=== PATIENT | male | born 1940 | race Caucasian/White ===

== ENCOUNTER 2022-04-05 14:07 | Outpatient (CLI) | payer MEDICARE, SELFPAY ==
--- OUTSIDE RECORDS SUMMARY | 2022-04-05 07:59 | XMS_ITS | Encounter Summary ---
:1940 Author Organization [place] Address [facility] [place] [address] Care Team Providers Name Role Phone Zen Rousseau MD Unavailable Senthil Mckeon MD Primary Care Provider [phone] Ta Trimble MD Unavailable Ronnie Myers Primary Care Provider Mali Dowd APRN RAILROAD CAR INSPECTOR Unavailable Reason for Visit Reason Onset Date Comments Appointment 09/08/2021 Calling to schedule appt Encounter Details Date Type Department Care Team Description 09/08/2021 Telephone [facility] Mali Dowd Ap pointment (Calling to Health Heart FIRE INFORMATION OFFICER RAILROAD CAR INSPECTOR schedule appt) [facility] [address] [place], [place] [address] [address] [place] [address] [place], [place] [phone] (Work) [phone] Social History Tobacco Use Types Packs/Day Years Used Date Former Smoker Smokeless Tobacco: Never Used Comments: quit about 30 years ago Alcohol Use Standard Drinks/Week Comments Yes 0 (1 standard drink = 0.6 oz pure alcoho l) rare Alcohol Habits Answer Date Recorded How often do you have a drink containing alcohol? Not asked How many drinks containing alcohol do you have on a typical Not asked day when you are drinking? How often do you have six or more drinks on one occasion? No t asked Comment: rare 04/23/2017 Sex Assigned at Date Recorded Not on file documented as of this encounter Miscellaneous Notes Telephone Encounter - Maria G Solitarioflorentin - 09/08/2021 2:45 PM [facility] Call Center Phone Message May a detailed message be left on voicemail: yes Reason for Call: Other: pt calling to schedule appt but unable to populate January UMER scheudle in [place] for October pt aware clinic will call to help schedule. Action Taken: Message routed to: Other: Cardiology Travel Screening: Not Applicable FACTURING DEVELOPMENT ENGINEER documented in this encounter Plan of Treatment Not on filedocumented as of this encounter Visit Diagnoses Not on filedocumented in this encounter Care Teams Motor And Generator Brush Cutter Relationship Specialty Start Date End Date Senthil Mckeon, PCP - General 12/03/18 Ronnie Myers PCP - General Family Medicine 09/11/21 [facility] [address] [place] [address] Zen Rousseau MD MD Family Practice 07/31/12 [facility] [address] [place] [address] Ta Trimble Assigned Heart and 05/27/20 2 MD [facility] [address] [place], [place] [address] Mali Dowd APRN RAILROAD CAR INSPECTOR Assigned Heart and 10/08/21 [address] Vascular Provider [place] [id number] documented as of this encounter
--- OUTSIDE RECORDS SUMMARY | 2022-04-05 07:59 | XMS_ITS | Encounter Summary ---
:1940 Author Organization [place] Address [address] [place] [address] Care Team Providers Name Role Phone Zen Rousseau MD Unavailable Ta Trimble MD Unavailable Ronnie Myers Primary Care Provider Encounter Details Date Type Department Care Team Description 10/04/2021 Travel Social History Tobacco Use Types Packs/Day Years [...] Assigned at Date Recorded Not on file COVID-19 Exposure Response Date Recorded In the last month, have you been in contact with No / Unsure 10/04/2021 2:30 PM RECRUITING COORDINATOR someone who was confirmed or suspected to have Coronavirus / COVID-19? documented as of this encounter Plan of Treatment Not on filedocumented as of this encounter Visit Diagnoses Not on filedocumented in this encounter Care Teams Sales Service Technician Relationship Specialty Start Date End Date Ronnie Myers PCP - General Family Medicine 09/11/21 [facility] [address] [place] [address] Zen Rousseau MD MD Family Practice 07/31/12 [facility] [address] [place] [address] Ta Trimble Assigned Heart and 05/27/20 3 2 MD [facility] Provider [address] [place] [phone] documented as of this encounter
--- OUTSIDE RECORDS SUMMARY | 2022-04-05 07:59 | XMS_ITS | Encounter Summary ---
:1940 Author Organization [place] Address [address] [facility] [place] [address] Care Team Providers Name Role Phone Zen Rousseau MD Unavailable Ta Trimble MD Unavailable [phone] Ronnie Myers Primary Care Provider Reason for Referral Consultation (Routine: Next available opening) - Pending Review Specialty Diagnoses / Procedures Referred By Contact Refer red To Contact Cardiovascular Disease Diagnoses Nonrheumatic aortic valve stenosis Mali Dowd, JERMAINE ELECTRICAL DRAFTER [address] [place] [id number] Referral ID Status Reason Start Date Expiration Date Visits V isits Requested Authorized [id number] Pending 10/04/2021 10/04/2022 1 1 Review V Testing (Routine) - Pending Review Specialty Diagnoses / Procedures Referred By Contact Refer red To Contact Diagnoses Nonrheumatic aortic valve stenosis Mali Dowd APRN ELECTRICAL DRAFTER Procedures Echocardiogram Complete [facility] TTE W/DOPPLER, COMPLETE [facility] ECHO COMPLETE W DOPPLER W CONTRAST [facility] ECHO COMPLETE W DOPPLER W/O CONTRAST [facility] IV PUSH SINGLE, INITIAL SUBSTANCE Z[facility] US GUIDE FOR PERICARDIOCENTESIS [address] [facility] ECHO MYOCARD BX ZZC INJECTION, PERFLUTREN LIPID MICROSPHERES, PER ML [facility] STATISTIC IV PUSH SINGLE INITIAL SUBSTANCE HI ECHO MYOCARD BX HI INJECTION, PERFLUTREN LIPID MICROSPHERES, PER ML HI TTE W/DOPPLER, [place] [address] HI IV PUSH SINGLE, INITIAL S UBSTANCE HI TTE W/DOPPLER, COMPLETE HI TTE W/DOPPLER, COMPLETE HC US GUIDE FOR PERICARDIOCENTESIS HC ECHO MYOCARD BX HC IV PUSH SINGLE, INITIAL SUBSTANCE HC STATISTIC IV PUSH SINGLE INITIAL SUBSTANCE HC ECHO COMPLETE W DOPPLER W CONTRAST HC ECHO COMPLETE W DOPPLER W/O CONTRAST Referral ID Status Reason Start Date Expiration Date Visits V isits Requested Authorized [id number] Pending 10/04/2021 10/04/2022 1 1 Review N RESOURCE ANALYST Reason for Visit Reason Comments Follow Up CAD, HTN (Routine) - Closed Specialty Diagnoses / Procedures Referred By Contact Refer red To Contact Diagnoses Essential hypertension Nonrheumatic aortic valve stenosis Hyperlipidemia LDL goal <70 Coronary artery disease involving eastern [place] coronary artery of eastern [place] heart without angina pectoris Ta Trimble MD [address] [place] [phone] Referral ID Status Reason Start Date Expiration Date Visits Requ ested Visits Authorized [id number] Closed 10/25/2020 10/25/2021 1 1 Encounter Details Date Type Department Care Team Description 10/04/2021 Office Visit Mali Wagner, Essential hy pertension; [facility] JERMAINE BUTLER Nonrheumatic aortic valve stenosis; [facility] [id number] MARY XIONG Hyperlipidemia LDL goal <70; [id number] [facility] [address] Coronary artery disease involving eastern [place] coronary artery of eastern [place] heart without angina pectoris [address] [place] [address] [place], [place] [phone] [address] (Work) [phone] Social History Tobacco Use Types Packs/Day Years [...] with No / Unsure 10/04/2021 2:30 PM HUMAN RESOURCE ANALYST someone who was confirmed or suspected to have Coronavirus / COVID-19? documented as of this encounter Last Filed Vital Signs Vital Sign Reading Time Taken Comments Blood Pressure 104/50 10/04/2021 2:44 PM HUMAN RESOURCE ANALYST Pulse 56 10/04/2021 2:44 PM HUMAN RESOURCE ANALYST Temperature - - Respiratory Rate - - Oxygen Saturation 97% 10/04/2021 2:44 PM HUMAN RESOURCE ANALYST Inhaled Oxygen Concentration - - Weight 92.6 kg (204 lb 3.2 oz) 10/04/2021 2:44 PM HUMAN RESOURCE ANALYST Height 167.6 cm (5' 6) 10/04/2021 2:44 PM HUMAN RESOURCE ANALYST Body Mass Index 32.96 10/04/2021 2:44 PM HUMAN RESOURCE ANALYST documented in this encounter Progress Notes Mali Dowd, JERMAINE ELECTRICAL DRAFTER - 10/04/2021 3:00 PM CST HISTORY OF PRESENT ILLNESS: This is a 81 year old male who follows with Dr Trimble at [facility] His past medical history includes: Coronary artery disease, aortic valve disease, hypertension, hyperlipidemia, type IIdiabetes, COPD, obesity, and sleep apnea. Mr Bautista suffered an inferolateral ID and received a stent to his OM (2009) He has a history of aortic stenosis which has been followed by serial echocardiograms He intermittently has been on Lasix forperipheral edema. Tracy NUC (2016) showed no evidence of ischemia/infarction LVEF 77% ECHO (2018) showed LVEF 60-65%, mild/moderate LVH, mild aortic stenosis (mean gradient 16 mmHg), RVSP 32 mmHg His last ECHO (10/2020) showed LVEF 60-65%, normal RV function, borderline LVH, mild/moderate aortic stenosis (mean gradient 21 mmHg, peak 38 mmHg, MARTHA 1.4 cm2, DI 0.31) which has shown slow progressionof his aortic stenosis Borderline ascending aorta dilatation When seen last year, he admitted to being very sedentary and had stable dyspnea on exertion. He has multiple inhalers for his asthma. I reviewed records from his PMD The patient has recently been concerned about memory issues Labs (09/07/21) show Sodium: 139, Potassium: 4.5 BUN: 21 Creatinine: 1.2 ALT: 14 Hgb:12.4 PLT: 174, Hgb A1C 6.8% Our visit today is for an annual review and ECHO Mr Bautista comes in today with his who assists with his history and symptoms He admits to being sedentary, but is more active during summer months He denies any exertional chest pain or palpitations. He has chronic dyspnea on exertion that has not changed much over the past year He denies orthopneaor peripheral edema We talked about watching the salt in his diet and losing some weight He has no significant lightheadedness or near-syncope. I reviewed his ECHO (09/28/21) This showed progressive of his aortic stenosis,now considered moderate(MARTHA 1.2 cm2, mean gradient 27 mmHg) LVEF 55-60%, mild ascending aorta dilatation, grade I diastolicdysfunction, normal RV function VITAL SIGNS: BP: 104/50 Pulse: 56 Weight: 204 lbs (stable) BMI: 32 IMPRESSION AND PLAN: Coronary Artery Disease: -s/p inferolateral ID and stenting to OM (2009) -NUC stress (2016) showed no evidence of ischemia / infarction -LVEF 60% -denies angina Moderate Aortic Stenosis -mean gradient 27 mmHg, MARTHA 1.2 cm2 LVEF 60%, mild ascending aorta dilatation (2021) -repeat ECHO next year Hypertension: -on Losartan 50 mg, Metoprolol 25 mg BID, Lasix 20 mg -BP well controlled Hyperlipidemia: -on Crestor 40 mg -managed by PMD, due for lipids Treated Sleep Apnea The total time for the visit today was 30 minutes which includes patient visit, reviewing of records, discussion, and placing of orders of the outpatient coordination of cardiovascular care as described. The level of medical decision making during this visit was of moderate complexity. Thank you for allowing me to participate in their care. Orders Placed This Encounter Procedures ??? Follow-Up with Cardiology ??? Echocardiogram Complete Orders Placed This Encounter Medications ??? Ascorbic Acid (VITAMIN C) 500 MG CAPS Sig: Take by mouth daily ??? metFORMIN (GLUCOPHAGE) 500 MG tablet Sig: TAKE ONE TABLET BY MOUTH TWICE DAILY with meals ??? DISCONTD: atorvastatin (LIPITOR) 20 MG tablet ??? furosemide (LASIX) 20 MG tablet Sig: Take 1 tablet (20 mg) by mouth daily Dispense: 90 tablet Refill: 3 ??? losartan (COZAAR) 50 MG tablet Sig: Take 1 tablet (50 mg) by mouth daily Dispense: 90 tablet Refill: 3 ??? metoprolol tartrate (LOPRESSOR) 25 MG tablet Sig: Take 1 tablet (25 mg) by mouth 2 times daily Dispense: 180 tablet Refill: 3 Medications Discontinued During This Encounter Medication Reason ??? atorvastatin (LIPITOR) 20 MG tablet Medication Reconciliation Clean Up ??? furosemide (LASIX) 20 MG tablet Reorder ??? losartan (COZAAR) 50 MG tablet Reorder ??? metoprolol tartrate (LOPRESSOR) 25 MG tablet Reorder Encounter Diagnoses Name Primary? Essential hypertension ??? Nonrheumatic aortic valve stenosis ? ? Hyperlipidemia LDL goal <70 ??? Coronary artery disease involving eastern [place] coronary artery of eastern [place] heart without angina pectoris CURRENT MEDICATIONS: Current Outpatient Medications Medication Sig Dispense Refill ??? albuterol (2.5 MG/3ML) 0.083% nebulizer solution Take 1 vial by nebulization every 6 hours as needed for shortness of breath / dyspnea or wheezing ??? Ascorbic Acid (VITAMIN C) 500 MG CAPS Take by mouth daily ??? aspirin 81 MG tablet Take 81 mg by mouth daily ??? budesonide-formoterol (SYMBICORT) 80-4.5 MCG/ACT inhaler Inhale 2 puffs into the lungs as needed(Only takes when need for cough-NOT Scheduled like prescribed (averages 3x/wk)) ??? furosemide (LASIX) 20 MG tablet Take 1 tablet (20 mg) by mouth daily 90 tablet 3 ??? losartan (COZAAR) 50 MG tablet Take 1 tablet (50 mg) by mouth daily 90 tablet 3 ??? metFORMIN (GLUCOPHAGE) 500 MG tablet TAKE ONE TABLET BY MOUTH TWICE DAILY with meals ??? metoprolol tartrate (LOPRESSOR) 25 MG tablet Take 1 tablet (25 mg) by mouth 2 times daily 180 tablet 3 ??? nitroglycerin (NITROSTAT) 0.[address] 1 tablet (0.4 mg) under the tongue every 5 minutes as needed for chest pain 25 tablet 3 ??? pantoprazole (PROTONIX) 40 MG enteric coated tablet Take 40 mg by mouth every 48 hours ??? rosuvastatin (CRESTOR) 40 MG tablet Take 1 tablet (40 mg) by mouth daily (Patient taking differently: Take 20 mg by mouth daily ) 90 tablet 2 ??? Cyanocobalamin (VITAMIN B 12 PO) Take 1,000 mcg by mouth daily (Patient not taking: Reported on 10/04/2021) ??? VITAMIN D, CHOLECALCIFEROL, PO Take 1,000 Units by mouth daily (Patient not taking: Reported on 10/04/2021) ALLERGIES Allergies Allergen Reactions ??? Fish Oil Other (See Comments) Bloody noses ??? Penicillins Itching PAST MEDICAL HISTORY: Past Medical History: Diagnosis Date ??? CAD (coronary artery disease) mild/mod disease in RCA, INGRID to OM2 ??? Colon polyps ??? High cholesterol ??? Hypertension ??? Myocardial infarction (H) ??? Past history of myocardial infarction 06/2010 Non QWave ??? SOB (shortness of breath) ??? Stented coronary artery x1 stent ??? Uncomplicated asthma PAST SURGICAL HISTORY: Past Surgical History: Procedure Laterality Date ??? ARTHROSCOPY SHOULDER DECOMPRESSION Right 10/18/2014 Procedure: ARTHROSCOPY SHOULDER DECOMPRESSION; Surgeon: Shamar Butterfield MD; Location: [facility] OR ??? CARDIAC SURGERY 2009 x1 stent ??? COLECTOMY 2007 2007; partial colectomy 1 foot ??? COLONOSCOPY ??? COLONOSCOPY N/A 08/26/2019 Procedure: COLONOSCOPY, WITH POLYPECTOMY AND BIOPSY using jumbo forceps; Surgeon: Patric Dumont MD; Location: [facility] GI ??? COLONOSCOPY N/A 04/06/2021 Procedure: Colonoscopy, With Polypectomy And Biopsy; Surgeon: Jacque Kurtz MD; Location: [facility] GI ??? CORONARY ANGIOGRAPHY ADULT ORDER 06/2010 INGRID to OM2, RCA mild/mod disease FAMILY HISTORY: Family History Problem Relation Age of Onset ??? Diabetes Mother ??? Hypertension Mother ??? Asthma Father ??? Myocardial Infarction Brother ??? Cancer Brother ??? Myocardial Infarction Sister ??? Myocardial Infarction Brother ??? Myocardial Infarction Brother ??? Myocardial Infarction Brother ??? Myocardial Infarction Brother ??? Myocardial Infarction Sister ??? Colon Cancer No family hx of SOCIAL HISTORY: Social History Socioeconomic History ??? Marital status: Spouse name: Not on file ??? Number of children: Not on file ??? Years of education: Not on file ??? Highest education level: Not on file Occupational History ??? Not on file Tobacco Use ??? Smoking status: Former Smoker ??? Smokeless tobacco: Never Used ??? Tobacco comment: quit about 30 years ago Vaping Use ??? Vaping Use: Never used Substance and Sexual Activity ??? Alcohol use: Yes Comment: rare ??? Drug use: No ??? Sexual activity: Not on file Other Topics Concern ??? Service Not Asked ??? Blood Transfusions Not Asked ??? Caffeine Concern No Comment: 5-6 cups daily ??? Occupational Exposure Not Asked ??? Hobby Hazards Not Asked ??? Sleep Concern Not Asked ??? Stress Concern Not Asked ??? Weight Concern Not Asked ??? Special Diet No ??? Back Care Not Asked ??? Exercise No Comment: mowing the lawn ??? Bike Helmet Not Asked ??? Seat Belt Not Asked ??? Self-Exams Not Asked ??? Parent/sibling w/ CABG, ID or angioplasty before 65F 55M? Not Asked Social History Narrative ??? Not on file Social Determinants of Health Financial Resource Strain: Not on file Food Insecurity: Not on file Transportation Needs: Not on file Physical Activity: Not on file Stress: Not on file Social Connections: Not on file Intimate Partner Violence: Not on file Housing Stability: Not on file Review of Systems: Skin: Negative Eyes: Positive for glasses ENT: Negative Respiratory: Positive for sleep apnea;CPAP;dyspnea on exertion Cardiovascular: Positive for;chest pain sharp pain in chest occasionally Gastroenterology: Positive for heartburn;reflux Controlled with medication Genitourinary: Negative Musculoskeletal: Positive for Neurologic: Negative Psychiatric: Negative Heme/Lymph/Imm: Negative Endocrine: Negative Physical Exam: Vitals: BP 104/50 (BP Location: Right arm, Patient Position: Sitting, Cuff Size: Adult Large) Pulse 56 Ht 1.676 m (5' 6) Wt 92.6 kg (204 lb 3.2 oz) SpO2 97% BMI 32.96 kg/m?? Constitutional: in no acute distress obese Skin: warm and dry to the touch Head: normocephalic Eyes: no xanthalasma Lymph: ENT: no pallor or cyanosis Neck: JVP normal transmitted murmur Respiratory: clear to auscultation;normal respiratory excursion Cardiac: regular rhythm;normal S1 and S2;no S3 or S4 systolic ejection murmur;grade 2;radiation to the carotid;grade 1 pulses full and equal GI: abdomen soft;BS normoactive obese Extremities and Muscular Skeletal: no edema Neurological: no gross motor deficits memory issues Psych: affect appropriate, oriented to time, person and place CC Ta Trimble MD [address] [place] [id number] N RESOURCE ANALYST documented in this encounter Plan of Treatment Scheduled Orders Name Type Priority Associated Diagnoses Order S chedule Echocardiogram Complete Echocardiography Routine Nonrheumatic aortic Expected: valve stenosis 10/04/2022 (Approximate), Expires: 10/05/2022 Scheduled Referrals Name Type Priority Associated Diagnoses Order S chedule Follow-Up with Referral Routine: Next Nonrheumatic aortic Expec viktoria: Cardiology available opening valve stenosis 10/05/19 (Approximate), Expires: 10/05/2022 documented as of this encounter Visit Diagnoses Diagnosis Essential hypertension Unspecified essential hypertension Nonrheumatic aortic valve stenosis Aortic valve disorders Hyperlipidemia LDL goal <70 Other and unspecified hyperlipidemia Coronary artery disease involving eastern [place] coronary artery of eastern [place] heart without angina pectoris documented in this encounter Care Teams Granular Operator Relationship Specialty Start Date End Date Ronnie Myers PCP - General Family Medicine 09/11/21 [facility] [address] [place] [address] Zen Rousseau MD MD Family Practice 07/31/[address] [id number] Ta Trimble Assigned Heart and 05/27/20 2 MD [facility] Provider [address] [place] [phone] documented as of this encounter
--- OUTSIDE RECORDS SUMMARY | 2022-04-05 07:59 | XMS_ITS | Clinical Summary ---
:1940 Author Organization [facility] [place] [address] Care Team Providers Name Role Phone Unknown, Doctor Primary Care Provider Unavailable Allergies Active Allergy Reactions Severity Noted Date Comments Penicillins Rash 11/12/2013 Medications Medication Sig Dispensed Refills Start Date End Date Status aspirin enteric coated Take 1 tablet by 0 11/12/2013 Active 81 mg tablet mouth once daily with a meal. b complex vitamins Take 1 capsule by 0 11/12/2013 Active (VITAMIN B COMPLEX) mouth once daily. capsule albuterol (PROVENTIL) Inhale 3 mL via a 0 11/12/2013 Active 0.083 % neb solution nebulizer every 6 hours if needed for Shortness Of Breath. budesonide-formoterol Inhale 2 Puffs by 1 Inhaler 5 02/01/2015 Active (SYMBICORT) 80-4.5 mouth 2 times mcg/actuation (80-4.5 daily. mcg each actuation) inhalerIndications: Cough metoprolol succinate Take 1 tablet by 0 10/10/2015 Active (TOPROL XL) 25 mg mouth 2 times Sustained-Release daily. tablet losartan (COZAAR) 50 Take 1 tablet by 0 10/10/2015 Active mg tablet mouth once daily. rosuvastatin (CRESTOR) Take 1 tablet by 0 10/10/2015 Active 20 mg tablet mouth at bedtime. pantoprazole Take 1 tablet by 0 10/10/2015 Active (PROTONIX) 40 mg mouth once every delayed-release tablet other day. NITROSTAT 0.4 mg 3 10/04/2015 Ac tive sublingual tablet Active Problems Not on file Immunizations Name Administration Dates Next Due Influenza, High-dose Inactivated 04/21/2015 Pneumococcal conj 13-Valent (Prevnar 13) 08/14/2014 Td (Age >=7 Years) 05/07/2014 Social History Tobacco Use Types Packs/Day Years Used Date Former Smoker 2 Comments: quit 25-30 years ago Alcohol Use Standard Drinks/Week Comments Not Asked 0 (1 standard drink = 0.6 oz pure alcoho l) Sex Assigned at Date Recorded Not on file Obstetrics History Last Filed Vital Signs Vital Sign Reading Time Taken Comments Blood Pressure 118/56 10/10/2015 1:43 PM CRYPTOGRAPHIC VULNERABILITY ANALYST Pulse 72 10/10/2015 1:43 PM CRYPTOGRAPHIC VULNERABILITY ANALYST Temperature - - Respiratory Rate 18 11/12/2013 3:23 PM CDT Oxygen Saturation 96% 11/12/2013 3:23 PM CDT Inhaled Oxygen Concentration - - Weight 98.4 kg (217 lb) 10/10/2015 1:43 PM CRYPTOGRAPHIC VULNERABILITY ANALYST Height 166.4 cm (5' 5.5) 10/10/2015 1:43 PM CRYPTOGRAPHIC VULNERABILITY ANALYST Body Mass Index 35.56 10/10/2015 1:43 PM CRYPTOGRAPHIC VULNERABILITY ANALYST Plan of Treatment Health Maintenance Due Date Last Done Comments COVID-19 vaccine series (#1) 1940 Tdap 1951 Zoster (shingles) series for age 50+ (1 of 2) 01/26/1988 Pneumococcal series for age 65+ (2 - PPSV23 or PCV20) 08/14/2015 08/14/2014 BMI (ht and wt on same day) for age 18+ 10/09/2016 10/10/19 16 Depression screening for age 12+ 10/09/2016 10/10/2015 Influenza for age 65+ 04/05/2022 04/21/2015 Tetanus booster 05/07/2024 05/07/2014 Results Not on filefrom Last 3 Months Insurance Payer Benefit Plan / Subscriber ID Effective Dates Phone Addre ss Type Group UCARE [place] UCARE MEDICARE [id number] 2008-Present [address] [place] [address] Care Teams Cover Making Machine Operator Relationship Specialty Start Date End Date Unknown, Doctor PCP - General 04/25/18 .
--- OUTSIDE RECORDS SUMMARY | 2022-04-05 07:59 | XMS_ITS | Encounter Summary ---
:1940 Author Organization [facility] Address [address] [place] [address] Care Team Providers Name Role Phone Unavailable Primary Care Provider Unavailable Reason for Visit Appointment Request (Routine) - Closed Specialty Diagnoses / Procedures Referred By Contact Refer red To Contact Nephrology and Ronnie Myers Hypertension M.D. [address] [place] [address] Referral ID Status Reason Start Date Expiration Date Visits Requ ested Visits Authorized [id number] Closed 01/04/2022 01/04/2023 1 Encounter Details Date Type Department Care Team Description 01/16/2022 External Division of Mariajose Phelps Ch Kidney Disease (CKD) Stage 3b Glomerular Filtration Rate (GFR) 30 To 44 (Primary Dx); Outreach Nephrology and Abhijit Rao Jr., Diabetes Amita litus Type 2 With Diabetic Nephropathy (HCC); Hypertension in D.O. Anemia Of Chronic Renal Disease; [place] [address] [facility] Post Traumatic Osteoarthritis Knee Left; [place], [place] Hyperparathyroidism Renal Se condary (HCC) [address] [facility] [address] [place], [place] [phone] [id number] (Work) [phone] Social History Tobacco Use Types Packs/Day Years Used Date Smoking Tobacco: Never Assessed Sex Assigned at Date Recorded Not on file documented as of this encounter Consult Notes Abhijit Phelps Jr., D.O. - 01/16/2022 3:00 PM CDT Please see scanned in note under document viewer tab for the [facility] outreach visit from this date. 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
--- OUTSIDE RECORDS SUMMARY | 2022-04-05 07:59 | XMS_ITS | Clinical Summary ---
:1940 Author Organization [facility] Address [address] [place] [address] Care Team Providers Name Role Phone Unavailable Primary Care Provider Unavailable Source Comments Patient records contain information from all sites at [facility]. For routine questions regarding patient records, call [phone] during business hours, M-F 8:00 AM - 5:00 PM Central Time. Record requests for emergency care only can be directed to [phone] at any time.[facility] Medications Medication Sig Dispensed Refills Start Date End Date Status aspirin [address] tablet Take 81 mg by 0 Active mouth daily. furosemide (LASIX) 20 Take 20 mg by 0 10/06/2020 Active mg tablet mouth. losartan (COZAAR) 50 mg Take 0.5 tablets 0 6 Active tablet by mouth daily. metoprolol succinate Take 1 tablet by 0 10/10/2015 Active (TOPROL-XL) 25 mg 24 hr mouth 2 (two) tablet times a day. budesonide-formoteroL Inhale 2 puffs. 0 Active (SYMBICORT) 80-4.5 mcg/actuation inhaler nitroglycerin Place 0.4 mg 0 10/04/2015 Ac tive (NITROSTAT) 0.4 mg SL under the tongue. tablet rosuvastatin (CRESTOR) Take 40 mg by 0 02/21/2021 Active 40 mg tablet mouth. 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 Anemia Of Chron ic Renal Disease; Post Traumatic Osteoarthritis Knee Left; Hyperparathyroi dism Renal Secondary (HCC) from Last 3 Months Social History Tobacco Use Types Packs/Day Years Used Date Smoking Tobacco: Never Assessed Sex Assigned at Date Recorded Not on file Plan of Treatment Health Maintenance Due Date Last Done Comments Diabetic Office Visit with Foot 1940 Exam Dilated Eye Exam 1940 Office Visit for Blood Pressure 1940 Check / Re-check Urine Albumin 1940 DTaP,Tdap,and Td Vaccines (1 - 05/08/2014 05/07/2014 Tdap) Sodium Level 10/01/2020 10/01/2019, 12/03/2018 Depression Screening (Annual 08/05/2021 PHQ-2) Fall Risk Screen (Annual) 08/05/2021 Hemoglobin A1C 03/07/2022 09/07/2021, 09/13/2020 Influenza Vaccine (#1) 2022 05/13/2021, 05/08/2020, 04/10/2017, Additional history exists Creatinine Level 09/07/2022 09/07/2021, 10/01/2019, 12/03/2018 Potassium Level 09/07/2022 09/07/2021, 10/01/2019, 12/03/2018 Pneumococcal vaccine (65+ years) Completed 05/07/2016, 05/2015 Zoster Vaccines Completed 10/20/2018, 08/24/2018 COVID-19 Vaccine Completed 12/23/2021, 05/21/2021, 10/08/2020, Additional history exists Insurance Payer Benefit Plan / Subscriber ID Effective Dates Phone Addre ss Type Group UCARE ARE FOR [id number] 2019-Present [phone] [address] [place] [address]
--- OUTSIDE RECORDS SUMMARY | 2022-04-05 07:59 | XMS_ITS | Clinical Summary ---
:1940 Author Organization [place] Address [address] [facility] [address] Care Team Providers Name Role Phone Zen Rousseau MD Unavailable Ronnie Myers Primary Care Provider Mali Dowd APRN, CNP Unavailable Allergies Active Allergy Reactions Severity Noted Date Comments Fish Oil Other (See Comments) 09/30/2014 Bloody noses Penicillins Itching 05/24/2014 Medications Medication Sig Dispensed Refills Start Date End Date Status pantoprazole Take 40 mg by mouth 0 Active (PROTONIX) 40 MG every 48 hours enteric coated tablet budesonide-formoterol Inhale 2 puffs into 0 Active (SYMBICORT) 80-4.5 the lungs as needed MCG/ACT inhaler (Only takes when need for cough-NOT Scheduled like prescribed (averages 3x/wk)) aspirin 81 MG tablet Take 81 mg by mouth 0 Active daily albuterol (2.5 Take 1 vial by 0 Active MG/3ML) 0.083% nebulization every nebulizer solution 6 hours as needed for shortness of breath / dyspnea or wheezing Cyanocobalamin Take 1,000 mcg by 0 Active (VITAMIN B 12 PO) mouth daily nitroglycerin Place 1 tablet (0.4 25 tablet 3 10/04/2015 Active (NITROSTAT) 0.4 MG SL mg) under the tabletIndications: tongue every 5 Coronary artery minutes as needed disease involving for chest pain stebbins coronary artery of stebbins heart without angina pectoris VITAMIN D, Take 1,000 Units by 0 Active CHOLECALCIFEROL, PO mouth daily rosuvastatin Take 1 tablet (40 90 tablet 2 02/21/2021 Active (CRESTOR) 40 MG mg) by mouth daily tabletIndications: Mixed hyperlipidemia, Coronary artery disease involving stebbins coronary artery of stebbins heart without angina pectoris Additional Information Patient taking differently: 20 mg Oral DAILY, Reported on 10/04/2021 Ascorbic Acid (VITAMIN C) 500 Take by mouth daily 0 Active MG CAPS metFORMIN (GLUCOPHAGE) 500 MG TAKE ONE TABLET BY 0 0 09/07/2021 Active tablet MOUTH TWICE DAILY with meals furosemide (LASIX) 20 MG Take 1 tablet (20 mg) 90 tablet 3 09/2021 Active tabletIndications: Essential by mouth daily hypertension, Coronary artery disease involving stebbins coronary artery of stebbins heart without angina pectoris losartan (COZAAR) 50 MG Take 1 tablet (50 mg) 90 tablet 3 09/2021 Active tabletIndications: Essential by mouth daily hypertension metoprolol tartrate Take 1 tablet (25 mg) 180 tablet 3 022 Active (LOPRESSOR) 25 MG by mouth 2 times daily tabletIndications: Essential hypertension Active Problems Problem Noted Date Mixed hyperlipidemia 12/08/2015 Aortic valve disorder 10/04/2015 High cholesterol Hypertension CAD (coronary artery disease) Overview: mild/mod disease in RCA, INGRID to OM2 Past history of myocardial infarction Overview: 06/2010 Non QWave Stented coronary artery SOB (shortness of breath) Family History Medical History Relation Comments Cancer Brother 1 Myocardial Infarction Brother 1 Myocardial Infarction Brother 2 Myocardial Infarction Brother 3 Myocardial Infarction Brother 4 Myocardial Infarction Brother 5 Asthma Father Diabetes Mother Hypertension Mother Myocardial Infarction Sister 2 Myocardial Infarction Sister 3 Colon Cancer No family hx of Relation Status Comments Brother 1 Alive 7 brothers Heart att acks Brother 2 Brother 3 Brother 4 Brother 5 Father camacho Mother heart and diabetes Sister 1 MVA passed Sister 2 Alive 2 sisters Heart aníbal cks Sister 3 Alive Social History Tobacco Use Types Packs/Day Years Used Date Former Smoker Smokeless Tobacco: Never Used Tobacco Cessation: Counseling Given: No Comments: quit about 30 years ago Alcohol [...] Assigned at Date Recorded Not on file Last Filed Vital Signs Vital Sign Reading Time Taken Comments Blood Pressure 104/50 10/04/2021 2:44 PM SOCIAL SCIENTIST Pulse 56 10/04/2021 2:44 PM SOCIAL SCIENTIST Temperature 35.7 ??C (96.3 ??F) 04/06/2021 8:52 AM CDT Respiratory Rate 16 04/06/2021 10:10 AM CDT Oxygen Saturation 97% 10/04/2021 2:44 PM SOCIAL SCIENTIST Inhaled Oxygen Concentration - - Weight 92.6 kg (204 lb 3.2 oz) 10/04/2021 2:44 PM SOCIAL SCIENTIST Height 167.6 cm (5' 6) 10/04/2021 2:44 PM SOCIAL SCIENTIST Body Mass Index 32.96 10/04/2021 2:44 PM SOCIAL SCIENTIST Plan of Treatment Health Maintenance Due Date Last Done Comments ADVANCE CARE PLANNING 1940 ANNUAL REVIEW OF HM ORDERS 1940 FALL RISK ASSESSMENT 2003 MEDICARE ANNUAL WELLNESS 2003 VISIT PHQ-2 (once per calendar 08/05/2021 year) COVID-19 Vaccine (4 - 09/21/2021 05/21/2021, 10/08/2020, Booster for Pfizer series) 09/17/2020 INFLUENZA VACCINE (#1) 2022 05/13/2021, 05/08/2020, 04/10/2017, Additional history exists DTAP/TDAP/TD IMMUNIZATION 05/07/2024 05/07/2014, 05/07/2014 (2 - Td or Tdap) Pneumococcal Vaccine: 65+ Completed 05/07/2016, 08/14/2014 Years ZOSTER IMMUNIZATION Completed 10/20/2018, 08/24/2018 HEPATITIS B IMMUNIZATION Aged Out No long er eligible based on patient 's age to complete this topic IPV IMMUNIZATION Aged Out No longer eligi ble based on patient 's age to complete this topic MENINGITIS IMMUNIZATION Aged Out No longe r eligible based on patient 's age to complete this topic Insurance Payer Benefit Plan / Subscriber ID Effective Dates Phone Addre ss Type Group UCARE UCARE MEDICARE [id number] 2019-Present [phone] [address] [place] [address] Advance Directives For more information, please contact: [phone] Latest Code Status on File Code Status Date Activated Date Inactivated Comments Full Code 11/11/2016 10:06 AM 08/26/2019 7:12 AM Full Code 11/10/2016 8:03 PM 11/11/2016 10:06 AM Care Teams Heating And Ventilating Worker Relationship Specialty Start Date End Date Ronnie Myers PCP - General Family Medicine 09/11/21 [facility] [address] [place] [address] Zen Rousseau MD MD Family Practice 07/31/12 [facility] [address] [place] [phone] Mali Dowd APRN Assigned Heart and Vascular 10/08/21 DIAMOND SAW OPERATOR Provider [address] [place] [address]
--- OUTSIDE RECORDS SUMMARY | 2022-04-05 07:59 | XMS_ITS | Encounter Summary ---
:1940 Author Organization [place] Address [facility] [place] [address] Care Team Providers Name Role Phone Zen Rousseau MD Unavailable Ronnie Myers Primary Care Provider Mali Dowd APRN, CNP Unavailable Reason for Visit Reason Onset Date Comments Symptoms 11/28/2021 Sweating Encounter Details Date Type Department Care Team Description 11/28/2021 Telephone [facility] Ta Trimble Symptoms (Sweating ) Health Heart MD [facility]-[address] [address] [place], [place] [phone] (Wo rk) [address] [phone] Social History Tobacco Use Types Packs/Day Years [...] this encounter Miscellaneous Notes Telephone Encounter - Nazanin Wyman RN - 11/28/2021 2:56 PM CDT Patient returned call and states that today he was playing cards and broke out in a sweat. Denied any shortness of breath, chest pain, nausea or radiating pain. Last week he had a sharp pain on left breast area and it lasted less than 5 seconds. He denies any chest discomfort when walking. He has an OV with his PCP on 12-07-21. Patient will call 911 if his chest pain lasts longer, has shorntess of breath, nausea etc prior to his appt with his PCP. Telephone Encounter - Nazanin Wyman RN - 11/28/2021 2:01 PM CDT Attempted to call patient to assess symptoms. Left message to return call. Nazanin Wyman RN on 11/28/2021 at 2:01 PM Telephone Encounter - Dulce Lainez - 11/28/2021 1:11 PM CDT [facility] Phone Message May a detailed message be left on voicemail: no Reason for Call: Other: Valentina called to speak with a member of the care team, he would like to report excessive sweating. Please reach out to him at . Action Taken: Other: [facility] Travel Screening: Not Applicable documented in this encounter Plan of Treatment Not on filedocumented as of this encounter Visit Diagnoses Not on filedocumented in this encounter Care Teams Dental Equipment Repairer Relationship Specialty Start Date End Date Ronnie Myers PCP - General Family Medicine 09/11/21 [facility] [address] [place], [place] [id number] Zen Rousseau MD MD Family Practice 07/31/[address] [address] Dowd, Mali E, PRODUCE CLERK Assigned Heart and Vascular 10/08/21 HAIR OR BEAUTY SALON ASSISTANT Provider [address] [place] [address] documented as of this encounter
--- OUTSIDE RECORDS SUMMARY | 2022-04-05 07:59 | XMS_ITS | Encounter Summary ---
:1940 Author Organization [place] Address [address] [place] [address] Care Team Providers Name Role Phone Zen Rousseau MD Unavailable Senthil Mckeon MD Primary Care Provider [phone] Ta Trimble MD Unavailable [phone] Encounter Details Date Type Department Care Team Description 04/06/2021 Travel Social History Tobacco Use Types Packs/Day [...] been in contact with No / Unsure 04/06/2021 8:22 AM CDT someone who was confirmed or suspected to have Coronavirus / COVID-19? documented as of this encounter Plan of Treatment Not on filedocumented as of this encounter Visit Diagnoses Not on filedocumented in this encounter Care Teams Wigs Salesperson Relationship Specialty Start Date End Date Senthil Mckeon, PCP - General 12/03/18 Zen Rousseau MD MD Family Practice 07/31/12 [facility] [address] [place] [address] Ta Trimble [facility] Heart and 05/27/20 2 MD [facility] V[facility] Provider [address] [place] [id number] documented as of this encounter
--- OUTSIDE RECORDS SUMMARY | 2022-04-05 07:59 | XMS_ITS | Encounter Summary ---
:1940 Author Organization [place] Address [address] [facility] [address] Care Team Providers Name Role Phone Zen Rousseau MD Unavailable Senthil Mckeon MD Primary Care Provider [phone] Ta Trimble MD Unavailable [phone] Ronnie Myers Primary Care Provider Mali Dowd APRN, CNP Unavailable Encounter Details Date Type Department Care Team Description 09/07/2021 External Order [facility] Outside, Provide r Results Molecular Diagnostic s [address] [place] [address] Social History Tobacco Use Types Packs/Day Years [...] on file documented as of this encounter Plan of Treatment Not on filedocumented as of this encounter Procedures Procedure Name Priority Date/Time Associated Comments Diagnosis CBC WITH PLATELETS & Routine 09/07/2021 3:00 PM R esults for this DIFFERENTIAL SHOPPER MARKETING MANAGER procedure are i n the results section. RENAL PANEL Routine 09/07/2021 3:00 PM Results f or this SHOPPER MARKETING MANAGER procedure are i n the results section. HEPATIC FUNCTION PANEL Routine 09/07/2021 3:00 PM Results for this SHOPPER MARKETING MANAGER procedure are i n the results section. ERYTHROCYTE Routine 09/07/2021 3:00 PM Results f or this SEDIMENTATION RATE SHOPPER MARKETING MANAGER procedure are in AUTO the results section. VITAMIN B12 Routine 09/07/2021 3:00 PM Results f or this SHOPPER MARKETING MANAGER procedure are i n the results section. documented in this encounter Results Vitamin B12 (09/07/2021 3:00 PM SHOPPER MARKETING MANAGER) athologist Signature Vitamin B12 841 243 [phone] 894 NON-INTERFACED (External) pg/mL (ONBASE SCANS) Specimen (Source) Anatomical Collection Method Collection Time Re ceived Time Location / / Volume Laterality Blood 09/07/2021 3:00 PM SHOPPER MARKETING MANAGER Narrative [facility] - 10/04/2021 8:44 AM SHOPPER MARKETING MANAGER Verified by Olga Lidia Beard on 10/04/2021. Provider Outside LAB - BLOOD ORDERABLES Performing Organization Address [facility] Phon e Number [facility] NON-INTERFACED (ONBASE SCANS) Erythrocyte sedimentation rate auto (09/07/2021 3:00 PM SHOPPER MARKETING MANAGER) athologist Signature ESR (External) 9 0 - 15 NON-INTERFACED MM/HR (ONBASE SCANS) Specimen (Source) Anatomical Collection Method Collection Time Re ceived Time Location / / Volume Laterality Blood 09/07/2021 3:00 PM SHOPPER MARKETING MANAGER Narrative [facility] - 10/04/2021 8:44 AM SHOPPER MARKETING MANAGER Verified by Olga Lidia Beard on 10/04/2021. Provider Outside LAB - BLOOD ORDERABLES Performing Organization Address City/State/ZIP Code Phon e Number [facility] NON-INTERFACED (ONBASE SCANS) (ABNORMAL) CBC with Platelets & Differential (09/07/2021 3:00 PM SHOPPER MARKETING MANAGER) [facility] Method Time Signature WBC Count 8.6 4.5 - 11.0 NON-INTERFACE (External) K/UL D (ONBASE SCANS) RBC Count 4.36 4.30 - NON-INTERFACE (External) 5.90 M/UL D (ONBASE SCANS) Hemoglobin 12.4 (L) 13.5 - NON-INTERFACE (External) 17.5 GM/DL D (ONBASE SCANS) Hematocrit 40.1 37 - 53 % NON-INTERFACE (External) D (ONBASE SCANS) MCV (External) 92 80 - 100 NON-INTERFACE fL D (ONBASE SCANS) MCH (External) 28 26 - 34 PG NON-INTERFACE D (ONBASE SCANS) MCHC (External) 31 (L) 32 - 36 NON-INTERFACE GM/DL D (ONBASE SCANS) Platelet Count 174 140 - 440 NON-INTERFACE (External) K/UL D (ONBASE SCANS) % Neutrophils 47.7 42 - 72 % NON-INTERFACE (External) D (ONBASE SCANS) % Lymphocytes 39.9 20 - 44 % NON-INTERFACE (External) D (ONBASE SCANS) % Monocytes 9.9 0 - 11 % NON-INTERFACE (External) D (ONBASE SCANS) % Eosinophils 2.1 0 - 7 % NON-INTERFACE (External) D (ONBASE SCANS) Absolute 0.4 0.0 - 3.0 NON-INTERFACE Basophils % D (ONBASE (External) SCANS) Absolute 4.1 1.7 - 7.0 NON-INTERFACE Neutrophils % D (ONBASE (External) SCANS) Absolute 3.4 (H) 0.9 - 2.9 NON-INTERFACE Lymphocytes K/UL D (ONBASE (External) SCANS) Absolute 0.9 0.0 - 0.9 NON-INTERFACE Monocytes K/UL D (ONBASE (External) SCANS) Absolute 0.2 0.0 - 0.5 NON-INTERFACE Eosinophils K/UL D (ONBASE (External) SCANS) % Basophils 0.0 0.0 - 0.3 NON-INTERFACE (External) % D (ONBASE SCANS) Specimen (Source) Anatomical Collection Method Collection Time Re ceived Time Location / / Volume Laterality Blood 09/07/2021 3:00 PM SHOPPER MARKETING MANAGER Narrative [facility] - 10/04/2021 8:44 AM SHOPPER MARKETING MANAGER Verified by Olga Lidia Beard on 10/03/2021. Provider Outside LAB - BLOOD ORDERABLES Performing Organization Address City/State/ZIP Code Phon e Number [facility] NON-INTERFACED (ONBASE SCANS) Hepatic function panel (09/07/2021 3:00 PM SHOPPER MARKETING MANAGER) athologist Signature Protein Total 6.6 6.0 - 8.3 NON-INTERFACED (External) g/dL (ONBASE SCANS) Bilirubin Total 1.3 0.1 - 1.5 NON-INTERFACED (External) mg/dl (ONBASE SCANS) Alk Phosphatase 56 40 - 150 NON-INTERFACED (External) U/L (ONBASE SCANS) Specimen (Source) Anatomical Collection Method Collection Time Re ceived Time Location / / Volume Laterality Blood 09/07/2021 3:00 PM SHOPPER MARKETING MANAGER Narrative [facility] - 10/04/2021 8:44 AM SHOPPER MARKETING MANAGER Verified by Olga Lidia Beard on 0 10/03/2021. Provider Outside LAB - BLOOD ORDERABLES Performing Organization Address City/State/ZIP Code Phon e Number [facility] NON-INTERFACED (ONBASE SCANS) Renal panel (09/07/2021 3:00 PM SHOPPER MARKETING MANAGER) P athologist Signature Urea Nitrogen 21 7 - 30 NON-INTERFACED (External) mg/dL (ONBASE SCANS) Sodium 139 135 - 149 NON-INTERFACED (External) mmol/L (ONBASE SCANS) Chloride 101 96 - 114 NON-INTERFACED (External) mmol/L (ONBASE SCANS) (External) CO2 (External) 30 20 - 32 NON-INTERFACED mmol/L (ONBASE SCANS) Calcium 9.2 8.4 - 10.6 NON-INTERFACED (External) mg/dL (ONBASE SCANS) Albumin 4.1 3.3 - 5.0 NON-INTERFACED (External) g/dL (ONBASE SCANS) Specimen (Source) Anatomical Collection Method Collection Time Re ceived Time Location / / Volume Laterality Blood 09/07/2021 3:00 PM SHOPPER MARKETING MANAGER Narrative [facility] - 10/04/2021 8:44 AM SHOPPER MARKETING MANAGER Verified by Kati Beard10/03. Provider Outside LAB - BLOOD ORDERABLES Performing Organization Address City/State/ZIP Code Phon e Number [facility] NON-INTERFACED (ONBASE SCANS) documented in this encounter Visit Diagnoses Not on filedocumented in this encounter Care Teams Inspector Agricultural Commodities Relationship Specialty Start Date End Date Senthil Mckeon, PCP - General 12/03/18 Ronnie Myers PCP - General Family Medicine 09/11/21 [facility] [address] [place] [address] Zen Rousseau MD MD Family Practice 07/31/12 [facility] [address] [place] [address] Ta Trimble Assigned Heart and 05/27/20 2 MD [facility] Vascular Provider [address] [place] [address] Mali Dowd APRN [employer]HALT [employer]AR AND GRAVEL ROOFER Assigned Heart and 10/08/21 [address] [place] [address] documented as of this encounter
--- OUTSIDE RECORDS SUMMARY | 2022-04-05 07:59 | XMS_ITS | Encounter Summary ---
:1940 Author Organization [place] Address [address] [facility] [place] [address] Care Team Providers Name Role Phone Zen Rousseau MD Unavailable Ta Trimble MD Unavailable [phone] Ronnie Myers Primary Care Provider Encounter Details Date Type Department Care Team Description 09/28/2021 Travel Social History Tobacco Use Types Packs/Day [...] been in contact with No / Unsure 09/28/2021 7:14 AM TANNING SALON ATTENDANT someone who was confirmed or suspected to have Coronavirus / COVID-19? documented as of this encounter Plan of Treatment Not on filedocumented as of this encounter Visit Diagnoses Not on filedocumented in this encounter Care Teams Biomass Facilitator Relationship Specialty Start Date End Date Ronnie Myers PCP - General Family Medicine 09/11/21 [facility] [address] [place] [address] Zen Rousseau MD MD Family Practice 07/31/12 [facility] [address] [place] [address] Ta Trimble Assigned Heart and 05/27/20 3 2 MD [facility] Vascular Provider [address] [place] [id number] documented as of this encounter
--- OUTSIDE RECORDS SUMMARY | 2022-04-05 07:59 | XMS_ITS | Encounter Summary ---
:1940 Author Organization [facility] Address [address] [facility] [facility] [place] [address] Care Team Providers Name Role Phone Zen Rousseau MD Unavailable Ta Trimble MD Unavailable [phone] Ronnie Myers Primary Care Provider Reason for Referral CV Testing (Routine) - Closed Specialty Diagnoses / Procedures Referred By Contact Refer red To Contact Diagnoses Essential hypertension Nonrheumatic aortic valve stenosis Hyperlipidemia LDL goal <70 Coronary artery disease involving [place] coronary artery of [place] heart without angina pectoris Ta Trimble, Procedures Echocardiogram Complete [facility] TTE W/DOPPLER, COMPLETE [facility] ECHO COMPLETE W DOPPLER W CONTRAST [facility] ECHO COMPLETE W DOPPLER W/O CONTRAST [facility] IV PUSH SINGLE, INITIAL SUBSTANCE ZZ[facility] US GUIDE FOR PERICARDIOCENTESIS MD TAI ECHO MYOCARD BX ZZC INJECTION, PERFLUTREN LIPID MICROSPHERES, PER ML ZZ[facility] STATISTIC IV PUSH SINGLE INITIAL SUBSTANCE AK ECHO MYOCARD BX AK INJECTION, PERFLUTREN LIPID MICROSPHERES, PER ML AK TTE W/DOPPLER, COMPLETE [address] [place] IV PUSH SINGLE, INITIAL S UBSTANCE AK TTE W/DOPPLER, COMPLETE AK TTE W/DOPPLER, COMPLETE HC US GUIDE FOR PERICARDIOCENTESIS HC ECHO MYOCARD BX HC IV PUSH SINGLE, INITIAL SUBSTANCE HC STATISTIC IV PUSH SING[place] [address] HC ECHO COMPLETE W DOPPLER W CONTRAST HC ECHO COMPLETE W DOPPLER W/O CONTRAST Referral ID Status Reason Start Date Expiration Date Visits Requ ested Visits Authorized [id number] Closed 10/25/2020 10/25/2021 1 1 BUILDER Reason for Visit CV Testing (Routine) - Closed Specialty Diagnoses / Procedures Referred By Contact Refer red To Contact Diagnoses Essential hypertension Nonrheumatic aortic valve stenosis Hyperlipidemia LDL goal <70 Coronary artery disease involving [place] coronary artery of [place] heart without angina pectoris Ta Trimble, Procedures Echocardiogram Complete ZZ[facility] TTE W/DOPPLER, COMPLETE ZZ[facility] ECHO COMPLETE W DOPPLER W CONTRAST ZZ[facility] ECHO COMPLETE W DOPPLER W/O CONTRAST ZZ[facility] IV PUSH SINGLE, INITIAL SUBSTANCE ZZ[facility] US GUIDE FOR PERICARDIOCENTESIS MD TAI ECHO MYOCARD BX ZZC INJECTION, PERFLUTREN LIPID MICROSPHERES, PER ML ZZ[facility] STATISTIC IV PUSH SINGLE INITIAL SUBSTANCE AK ECHO MYOCARD BX AK INJECTION, PERFLUTREN LIPID MICROSPHERES, PER ML AK TTE W/DOPPLER, COMPLETE [address] [place] IV PUSH SINGLE, INITIAL S UBSTANCE AK TTE W/DOPPLER, COMPLETE AK TTE W/DOPPLER, COMPLETE HC US GUIDE FOR PERICARDIOCENTESIS HC ECHO MYOCARD BX HC IV PUSH SINGLE, INITIAL SUBSTANCE HC STATISTIC IV PUSH SING[place] [address] HC ECHO COMPLETE W DOPPLER W CONTRAST HC ECHO COMPLETE W DOPPLER W/O CONTRAST Referral ID Status Reason Start Date Expiration Date Visits Requ ested Visits Authorized [id number] Closed 10/25/2020 10/25/2021 1 1 Encounter Details Date Type Department Care Team Description 09/28/2021 Hospital Encounter [facility] Ta Chambers Essential hypertension; [facility] MD Jerrell Nonrheumatic aortic valve stenosis; [facility] [address] Hyperlipidemia LDL goal <70; [id number] [facility] [address] Coronary artery disease involving [place] coronary artery of [place] heart without angina pectoris Drive [address] [place] [address] [phone] Social History Tobacco Use Types Packs/Day Years [...] with No / Unsure 09/28/2021 7:14 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 documented as of this encounter Medications at Time of Discharge Medication Sig Dispensed Refills Start Date End Date albuterol (2.5 MG/3ML) Take 1 vial by 0 0.083% nebulizer nebulization every 6 solution hours as needed for shortness of breath / dyspnea or wheezing aspirin 81 MG tablet Take 81 mg by mouth 0 daily budesonide-formoterol Inhale 2 puffs into 0 (SYMBICORT) 80-4.5 the lungs as needed MCG/ACT inhaler (Only takes when need for cough-NOT Scheduled like prescribed (averages 3x/wk)) Cyanocobalamin (VITAMIN Take 1,000 mcg by 0 B 12 PO) mouth daily metFORMIN (GLUCOPHAGE) TAKE ONE TABLET BY 0 09/07 500 MG tablet MOUTH TWICE DAILY with meals nitroglycerin Place 1 tablet (0.4 25 tablet 3 10/04/2015 (NITROSTAT) 0.4 MG SL mg) under the tongue tabletIndications: every 5 minutes as Coronary artery disease needed for chest pain involving [place] coronary artery of [place] heart without angina pectoris pantoprazole (PROTONIX) Take 40 mg by mouth 0 40 MG enteric coated every 48 hours tablet rosuvastatin (CRESTOR) Take 1 tablet (40 mg) 90 tablet 2 40 MG by mouth daily tabletIndications: Mixed hyperlipidemia, Coronary artery disease involving [place] coronary artery of [place] heart without angina pectoris VITAMIN D, Take 1,000 Units by 0 CHOLECALCIFEROL, PO mouth daily atorvastatin (LIPITOR) 0 10/21/2020 20 MG tablet furosemide (LASIX) 20 Take 1 tablet (20 mg) 90 tablet 3 10/04/2021 MG tabletIndications: by mouth as needed Essential hypertension, (Use as Directed for Coronary artery disease edema) involving [place] coronary artery of [place] heart without angina pectoris losartan (COZAAR) 50 MG Take 1 tablet (50 mg) 90 tablet 3 0 10/25/2020 10/04/2021 tabletIndications: by mouth daily Essential hypertension metoprolol tartrate Take 1 tablet (25 mg) 180 tablet 3 10/2510/04/2021 (LOPRESSOR) 25 MG by mouth 2 times tabletIndications: daily Essential hypertension documented as of this encounter Plan of Treatment Not on filedocumented as of this encounter Procedures Procedure Name Priority Date/Time Associated Diagnosis Comme nts ECHO COMPLETE Routine 09/28/2021 7:45 AM Essential Results for this ROLL BUILDER hypertension procedure are in the Nonrheumatic aortic results section. valve stenosis Hyperlipidemia LDL goal <70 Coronary artery disease involving [place] coronary artery of [place] heart without angina pectoris documented in this encounter Results ECHO COMPLETE (09/28/2021 7:45 AM ROLL BUILDER) athologist Signature LVEF 55-60% CARDIOLOGY RESULTS Anatomical Region Laterality Modality Echocardiography Specimen (Source) Anatomical Collection Method Collection Time Re ceived Time Location / / Volume Laterality 09/28/2021 7:21 AM ROLL BUILDER Narrative 09/28/2021 10:53 AM [facility] [id number]^JEROME^TA^[facility] Echocardiography Laboratory [address] [place] [id number] Name: DONALDO BAUTISTA : 1940 Study Date: 09/28/2021 07:21 AM Age: 81 yrs Gender: Male Patient Location: [facility] Reason For Study: Essential hypertension , Nonrheumatic aortic valve stenosis, Hype Ordering Physician: TA TRIMBLE Referring Physician: Ronnie Myers Performed By: Frank Ram RDCS BSA: 1.9 m2 Height: 65 in Weight: 190 lb HR: 58 BP: 144/77 mmHg Procedure Complete Echo Adult. Interpretation Summary Moderate valvular aortic stenosis, MARTHA 1 .2 cm2, mean gradient 27 mmHg. 1.4 and 22 last year. Mild aortic root dilatation. The ascending aorta is Mildly dilated. The visual ejection fraction is 55-60%. Grade I or early diastolic dysfunction. Left Ventricle The left ventricle is mildly dilated. Le ft ventricular hypertrophy: asymmetric with no LVOT obstruction. The visual eje ction fraction is 55-60%. Grade I or early diastolic dysfunction. Right Ventricle The right ventricle is normal in structu re, function and size. Atria Normal left atrial size. Right atrial si ze is normal. Mitral Valve The mitral valve leaflets appear thicken ed, but open well. There is mild to moderate mitral annular calcification. Tricuspid Valve Normal tricuspid valve. Aortic Valve Moderate valvular aortic stenosis. Pulmonic Valve Normal pulmonic valve. Vessels Mild aortic root dilatation. The ascendi ng aorta is Mildly dilated. The inferior vena cava is normal. Pericardium There is no pericardial effusion. Rhythm Sinus rhythm was noted. MMode/2D Measurements & Calculations IVSd: 1.3 cm LVIDd: 5.7 cm LVIDs: 4.5 cm LVPWd: 1.1 cm FS: 21.8 % LV mass(C)d: 284.5 grams LV mass(C)dI: 147.0 grams/m2 Ao root diam: 4.0 cm LA dimension: 4.2 cm asc Aorta Diam: 3.9 cm LA/Ao: 1.0 LVOT diam: 2.3 cm LVOT area: 4.2 cm2 LA Volume (BP): 47.2 ml LA Volume Index (BP): 24.3 ml/m2 RWT: 0.38 Time Measurements Aortic HR: 52.0 BPM Doppler Measurements & Calculations MV E max damaso: 79.1 cm/sec MV A max damaso: 86.8 cm/sec MV E/A: 0.91 MV max P.6 mmHg MV mean P.7 mmHg MV V2 VTI: 43.3 cm MVA(VTI): 2.6 cm2 MV dec slope: 316.3 cm/sec2 MV dec time: 0.25 sec Ao V2 max: 348.7 cm/sec Ao max P.0 mmHg Ao V2 mean: 242.8 cm/sec Ao mean P.0 mmHg Ao V2 VTI: 88.9 cm MARTHA(I,D): 1.2 cm2 MARTHA(V,D): 1.2 cm2 LV V1 max P.4 mmHg LV V1 max: 104.8 cm/sec LV V1 VTI: 26.6 cm CO(LVOT): 5.8 l/min CI(LVOT): 3.0 l/min/m2 SV(LVOT): 110.7 ml SI(LVOT): 57.2 ml/m2 PA acc time: 0.10 sec AV Damaso Ratio (DI): 0.30 MARTHA Index (cm2/m2): 0.64 E/E' av.9 Lateral E/e': 12.8 Medial E/e': 13.0 Report approved by: Morgan Cuello 09/28 10:53 AM Procedure Note Craig Godfrey MD - 09/28/2021Forma tting of this note might be different from the original. [id number]^JEROME^TA^[facility] Echocardiography Laboratory [address] [place] [address] Name: DONALDO BAUTISTA : 1940 Study Date: 09/28/2021 07:21 AM Age: 81 yrs Gender: Male Patient Location: [facility] Reason For Study: Essential hypertension , Nonrheumatic aortic valve stenosis, Hype Ordering Physician: TA TRIMBLE Kadeem Referring Physician: Ronnie Myers Performed By: Frank Ram RDCS BSA: 1.9 m2 Height: 65 in Weight: 190 lb HR: 58 BP: 144/77 mmHg Procedure Complete Echo Adult. Interpretation Summary Moderate valvular aortic stenosis, MARTHA 1 .2 cm2, mean gradient 27 mmHg. 1.4 and 22 last year. Mild aortic root dilatation. The ascending aorta is Mildly dilated. The visual ejection fraction is 55-60%. Grade I or early diastolic dysfunction. Left Ventricle The left ventricle is mildly dilated. Le ft ventricular hypertrophy: asymmetric with no LVOT obstruction. The visual eje ction fraction is 55-60%. Grade I or early diastolic dysfunction. Right Ventricle The right ventricle is normal in structu re, function and size. Atria Normal left atrial size. Right atrial si ze is normal. Mitral Valve The mitral valve leaflets appear thicken ed, but open well. There is mild to moderate mitral annular calcification. Tricuspid Valve Normal tricuspid valve. Aortic Valve Moderate valvular aortic stenosis. Pulmonic Valve Normal pulmonic valve. Vessels Mild aortic root dilatation. The ascendi ng aorta is Mildly dilated. The inferior vena cava is normal. Pericardium There is no pericardial effusion. Rhythm Sinus rhythm was noted. MMode/2D Measurements & Calculations IVSd: 1.3 cm LVIDd: 5.7 cm LVIDs: 4.5 cm LVPWd: 1.1 cm FS: 21.8 % LV mass(C)d: 284.5 grams LV mass(C)dI: 147.0 grams/m2 Ao root diam: 4.0 cm LA dimension: 4.2 cm asc Aorta Diam: 3.9 cm LA/Ao: 1.0 LVOT diam: 2.3 cm LVOT area: 4.2 cm2 LA Volume (BP): 47.2 ml LA Volume Index (BP): 24.3 ml/m2 RWT: 0.38 Time Measurements Aortic HR: 52.0 BPM Doppler Measurements & Calculations MV E max damaso: 79.1 cm/sec MV A max damaso: 86.8 cm/sec MV E/A: 0.91 MV max P.6 mmHg MV mean P.7 mmHg MV V2 VTI: 43.3 cm MVA(VTI): 2.6 cm2 MV dec slope: 316.3 cm/sec2 MV dec time: 0.25 sec Ao V2 max: 348.7 cm/sec Ao max P.0 mmHg Ao V2 mean: 242.8 cm/sec Ao mean P.0 mmHg Ao V2 VTI: 88.9 cm MARTHA(I,D): 1.2 cm2 MARTHA(V,D): 1.2 cm2 LV V1 max P.4 mmHg LV V1 max: 104.8 cm/sec LV V1 VTI: 26.6 cm CO(LVOT): 5.8 l/min CI(LVOT): 3.0 l/min/m2 SV(LVOT): 110.7 ml SI(LVOT): 57.2 ml/m2 PA acc time: 0.10 sec AV Damaso Ratio (DI): 0.30 MARTHA Index (cm2/m2): 0.64 E/E' av.9 Lateral E/e': 12.8 Medial E/e': 13.0 Report approved by: Morgan Cuello 09/28 10:53 AM Ta Trimble MD CV ECHO ORDERABLES documented in this encounter Visit Diagnoses Diagnosis Essential hypertension Unspecified essential hypertension Nonrheumatic aortic valve stenosis Aortic valve disorders Hyperlipidemia LDL goal <70 Other and unspecified hyperlipidemia Coronary artery disease involving [place] coronary artery of [place] heart without angina pectoris documented in this encounter Care 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
--- OUTSIDE RECORDS SUMMARY | 2022-04-05 08:00 | XMS_ITS | Encounter Summary ---
:1940 Author Organization [place] Address [address] [facility] [place] [address] Care Team Providers Name Role Phone Zen Rousseau MD Unavailable Senthil Mckeon MD Primary Care Provider [phone] Ankita Trimble MD Unavailable [phone] Reason for Referral (Routine) - Closed Specialty Diagnoses / Procedures Referred By Contact Refer red To Contact Diagnoses Essential hypertension Nonrheumatic aortic valve stenosis Hyperlipidemia LDL goal <70 Coronary artery disease involving napaimute coronary artery of napaimute heart without angina pectoris Ankita Trimble MD [address] [place] [address] 0530 2 Referral ID Status Reason Start Date Expiration Date Visits Requ ested Visits Authorized [id number] Closed 10/25/2020 10/25/2021 1 1 V Testing (Routine) - Closed Specialty Diagnoses / Procedures Referred By Contact Refer red To Contact Diagnoses Essential hypertension Nonrheumatic aortic valve stenosis Hyperlipidemia LDL goal <70 Coronary artery disease involving napaimute coronary artery of napaimute heart without angina pectoris Ankita Trimble, Procedures Echocardiogram Complete ZZHC TTE W/DOPPLER, COMPLETE ZZHC ECHO COMPLETE W DOPPLER W CONTRAST ZZHC ECHO COMPLETE W DOPPLER W/O CONTRAST ZZHC IV PUSH SINGLE, INITIAL SUBSTANCE ZZHC US GUIDE FOR PERICARDIOCENTESIS MD TAI ECHO MYOCARD BX ZZC INJECTION, PERFLUTREN LIPID MICROSPHERES, PER ML ZZHC STATISTIC IV PUSH SINGLE INITIAL SUBSTANCE TN ECHO MYOCARD BX TN INJECTION, PERFLUTREN LIPID MICROSPHERES, PER ML TN TTE W/DOPPLER, COMPLETE [address] TN IV PUSH SINGLE, INITIAL S UBSTANCE TN TTE W/DOPPLER, COMPLETE TN TTE W/DOPPLER, COMPLETE HC US GUIDE FOR PERICARDIOCENTESIS HC ECHO MYOCARD BX HC IV PUSH SINGLE, INITIAL SUBSTANCE HC STATISTIC IV PUSH [place] [address] HC ECHO COMPLETE W DOPPLER W CONTRAST HC ECHO COMPLETE W DOPPLER W/O CONTRAST Referral ID Status Reason Start Date Expiration Date Visits Requ ested Visits Authorized [id number] Closed 10/25/2020 10/25/2021 1 1 Reason for Visit Reason Comments Annual Visit Annual f/u (Routine) - Closed Specialty Diagnoses / Procedures Referred By Contact Refer red To Contact Diagnoses Essential hypertension Nonrheumatic aortic valve stenosis Hyperlipidemia LDL goal <70 Coronary artery disease involving napaimute coronary artery of napaimute heart without angina pectoris [facility] [address] [place] [address] Referral ID Status Reason Start Date Expiration Date Visits Requ ested Visits Authorized [id number] Closed 08/15/2020 08/15/2021 1 1 Encounter Details Date Type Department Care Team Description 10/25/2020 Office Visit Ankita Mcdowell Essential hypertension; [place] Tristian Allan MD Nonrheumatic aortic valve stenosis; Heart [address] [facility] [address] Hyperlipidemia LDL goal <70; [place], [place] Coronary artery disease invo lving napaimute coronary artery of napaimute heart without angina pectoris; [address] [id number] Mixed hyperlipidemia [address] [place], [place] (Work) [address] [phone] Social History Tobacco Use Types Packs/Day Years [...] been in contact with No / Unsure 10/25/2020 12:56 PM CDT someone who was confirmed or suspected to have Coronavirus / COVID-19? documented as of this encounter Last Filed Vital Signs Vital Sign Reading Time Taken Comments Blood Pressure 128/74 10/25/2020 1:20 PM CDT Pulse 58 10/25/2020 1:20 PM CDT Temperature - - Respiratory Rate - - Oxygen Saturation - - Inhaled Oxygen Concentration - - Weight 93.4 kg (206 lb) 10/25/2020 1:20 PM CDT Height 167.6 cm (5' 6) 10/25/2020 1:20 PM CDT Body Mass Index 33.25 10/25/2020 1:20 PM CDT documented in this encounter Progress Notes Ankita Trimble MD - 10/25/2020 1:15 PM CDT HISTORY: Donaldo Bautista is a pleasant 80-year-old male accompanied by his today. He has a history of mild to moderate aortic stenosis, coronary artery disease with an inferolateral AK in June 2010 treated with a INGRID to a marginal branch, hyperlipidemia, hypertension, obesity, obstructive sleep apnea using CPAP. He has a normal ejection fraction. Today Valentina, as he prefers to be called, reports that he has done well over the last year. He describes himself as lazy and states that he gets short of breath walking just 50 feet. He has a great dealof difficulty walking up a flight of steps. He has had a lot of problems with right knee pain and isgetting steroid injections for this with only marginal relief. He acknowledges that he sits most of the day and is extremely inactive. This has been the case for many years and he states that his dyspnea is no different than a year ago. He denies exertional chest pain, syncope, PND/orthopnea, palpitations, significant peripheral edema, or symptoms of claudication. Valentina describes a single episode of chest pain which was very localized in the midsternal area just to the left lasting only a few moments. This occurred while he was sitting in a car. I asked him to describe his pain as sharp dull stabbing etc. and all he could say is that it was a pain right there. It did not radiate elsewhere and was not associated nausea shortness of breath or diaphoresis. He has not had similar discomfort with activity. Her recent echocardiogram was reviewed in detail and compared to an echo done a year ago. His mean gradient across the aortic valve is 22 mmHg compared to 17 at the last study and his aortic valve areais 1.4 cm?? compared to a previous value of 1.5. The DI is 0.31 compared to 2.38 in the past. There are no other significant valvular abnormalities or other cardiac issues by echo. ASSESSMENT/PLAN: 1. Aortic stenosis, mild to moderate and slowly progressive. We will continue to monitor intermittent echoes and I warned him of potential symptoms that he should contact us for. 2. Coronary artery disease. The patient is doing well without angina, no plans to evaluate further unless he develops symptoms. 3. Hypertension, managed through his primary care doctor, well controlled. 4. Hyperlipidemia. Also managed through primary care. He has had some issues with difficulty in having his Crestor filled because it was written for 1-1/2 tablets of 20 mg for a total of 30. I change this to 40 mg since it will be covered by his insurance plan. 5. Obstructive sleep apnea. Using CPAP anytime he sleeps. Thank you for inviting me to participate in your patient's care. Please and hesitate to call if I can be of further assistance. Greater than 30 minutes spent today reviewing the chart, interviewing andexamining the patient, and documenting visit. Chart documentation was completed, in part, with [employer] voice-recognition software. Even though reviewed, some grammatical, spelling, and word errors may remain. Orders Placed This Encounter Procedures ??? Follow-Up with Cardiac Advanced Practice Provider ??? Echocardiogram Complete Orders Placed This Encounter Medications ??? losartan (COZAAR) 50 MG tablet Sig: Take 1 tablet (50 mg) by mouth daily Dispense: 90 tablet Refill: 3 ??? metoprolol tartrate (LOPRESSOR) 25 MG tablet Sig: Take 1 tablet (25 mg) by mouth 2 times daily Dispense: 180 tablet Refill: 3 ??? rosuvastatin (CRESTOR) 40 MG tablet Sig: Take 1 tablet (40 mg) by mouth daily Dispense: 40 tablet Refill: 3 ??? furosemide (LASIX) 20 MG tablet Sig: Take 1 tablet (20 mg) by mouth as needed (Use as Directed for edema) Dispense: 90 tablet Refill: 3 Medications Discontinued During This Encounter Medication Reason ??? MAGNESIUM PO Medication Reconciliation Clean Up ??? rosuvastatin (CRESTOR) 20 MG tablet Reorder ??? furosemide (LASIX) 20 MG tablet Reorder ??? metoprolol tartrate (LOPRESSOR) 25 MG tablet Reorder ??? losartan (COZAAR) 50 MG tablet Reorder 10 year ASCVD risk: The ASCVD Risk score ([place] CONTRERAS Jr., et al., 2013) failed to calculate for the following reasons: The 2013 ASCVD risk score is only valid for ages 40 to 79 Encounter Diagnoses Name Primary? Essential hypertension ??? Nonrheumatic aortic valve stenosis ? ? Hyperlipidemia LDL goal <70 ??? Coronary artery disease involving napaimute coronary artery of napaimute heart without angina pectoris ??? Mixed hyperlipidemia CURRENT MEDICATIONS: Current Outpatient Medications Medication Sig Dispense Refill ??? albuterol (2.5 MG/3ML) 0.083% nebulizer solution Take 1 vial by nebulization every 6 hours as needed for shortness of breath / dyspnea or wheezing ??? aspirin 81 MG tablet Take 81 mg by mouth daily ??? budesonide-formoterol (SYMBICORT) 80-4.5 MCG/ACT inhaler Inhale 2 puffs into the lungs as needed(Only takes when need for cough-NOT Scheduled like prescribed (averages 3x/wk)) ??? Coenzyme Q10 (COQ-10) 100 MG CAPS Take by mouth daily ??? Cyanocobalamin (VITAMIN B 12 PO) Take 1,000 mcg by mouth daily ??? furosemide (LASIX) 20 MG tablet Take 1 tablet (20 mg) by mouth as needed (Use as Directed for edema) 90 tablet 3 ??? losartan (COZAAR) 50 MG tablet Take 1 tablet (50 mg) by mouth daily 90 tablet 3 ??? metoprolol tartrate (LOPRESSOR) 25 MG [...] 1 tablet (40 mg) by mouth daily 40 tablet 3 ??? VITAMIN D, CHOLECALCIFEROL, PO Take 1,000 Units by mouth daily ALLERGIES Allergies Allergen Reactions ??? Fish Oil [...] Patric Dumont MD; Location: [facility] ??? CORONARY ANGIOGRAPHY [...] Myocardial Infarction Brother ??? Myocardial Infarction Sister SOCIAL HISTORY: Social History Socioeconomic History ??? Marital status: Spouse name: None ??? Number of children: None ??? Years of education: None ??? Highest education level: None Occupational History ??? None Social Needs ??? Financial resource strain: None ??? Food insecurity Worry: None Inability: None ??? Transportation needs Medical: None Non-medical: None Tobacco Use ??? Smoking status: Former Smoker ??? Smokeless tobacco: Never Used ??? Tobacco comment: quit about 30 years ago Substance and Sexual Activity ??? Alcohol use: Yes Comment: rare ??? Drug use: No ??? Sexual activity: None Lifestyle ??? Physical activity Days per week: None Minutes per session: None ??? Stress: None Relationships ??? Social connections Talks on phone: None Gets together: None Attends catholic service: None Active member of club or organization: None Attends meetings of clubs or organizations: None Relationship status: None ??? Intimate partner violence Fear of current or ex partner: None Emotionally abused: None Physically abused: None Forced sexual activity: None Other Topics Concern ??? Service Not Asked [...] Self-Exams Not Asked ??? Parent/sibling w/ CABG, AK or angioplasty before 65F 55M? Not Asked Social History Narrative ??? None Review of Systems: Skin: Negative Eyes: Positive for glasses ENT: Negative Respiratory: Positive for sleep apnea;CPAP;dyspnea on exertion Cardiovascular: palpitations;Positive for;chest pain Gastroenterology: Positive for heartburn;reflux Genitourinary: Negative Musculoskeletal: Negative Neurologic: Negative Psychiatric: Negative Heme/Lymph/Imm: Negative Endocrine: Negative Physical Exam: Vitals: BP 128/74 (BP Location: Right arm, Patient Position: Sitting, Cuff Size: Adult Regular) Pulse 58 Ht 1.676 m (5' 6) Wt 93.4 kg (206 lb) BMI 33.25 kg/m?? Constitutional: in no acute distress obese Skin: warm and dry to the touch Head: normocephalic Eyes: no xanthalasma ENT: no pallor or cyanosis Neck: carotid pulses are full and equal bilaterally;JVP normal transmitted murmur Chest: clear to auscultation Cardiac: regular rhythm;normal S1 and S2;no S3 or S4 distant heart sounds systolic ejection murmur;grade 2;radiation to the carotid;grade 1 Abdomen: abdomen soft;BS normoactive obese Vascular: pulses full and equal Extremities and Muscular Skeletal: no edema Neurological: no gross motor deficits Psych: affect appropriate, oriented to time, person and place Recent Lab Results: LIPID RESULTS: Lab Results Component Value Date CHOL 184 09/13/2020 HDL 79 09/13/2020 LDL 85 09/13/2020 TRIG 100 09/13/2020 CHOLHDLRATIO 2.9 06/28/2010 LIVER ENZYME RESULTS: Lab Results Component Value Date AST 23 09/13/2020 ALT 15 09/13/2020 CBC RESULTS: Lab Results Component Value Date WBC 7.1 10/01/2019 RBC 4.44 10/01/2019 HGB 13.0 (A) 10/01/2019 HCT 41.5 10/01/2019 MCV 94 10/01/2019 MCH 29 10/01/2019 MCHC 31 (A) 10/01/2019 RDW 13.3 11/10/2016 PLT 148 10/01/2019 BMP RESULTS: Lab Results Component Value Date NA 137 10/01/2019 POTASSIUM 4.0 10/01/2019 CHLORIDE 98 10/01/2019 CO2 32 10/01/2019 ANIONGAP 5 12/03/2018 GLC 126 (A) 10/01/2019 BUN 18 10/01/2019 CR 0.9 10/01/2019 GFRESTIMATED 42 (L) 12/03/2018 GFRESTBLACK 49 (L) 12/03/2018 BETHANY 9.5 10/01/2019 A1C RESULTS: Lab Results Component Value Date A1C 6.8 (A) 09/13/2020 INR RESULTS: Lab Results Component Value Date INR 0.98 06/28/2010 INR 0.91 06/27/2010 Ankita Trimble MD, FACC CC Ankita Trimble MD [address] [place] [address] documented in this encounter Plan of Treatment Scheduled Referrals Name Type Priority Associated Diagnoses Order S chedule Follow-Up with Cardiac Referral Routine Essential hypertension Expected: 10/25/2021 Advanced Practice Nonrheumatic aortic (Ap proximate), Provider valve stenosis Expires: 10/26/2021 Hyperlipidemia LDL goal <70 Coronary artery disease involving napaimute coronary artery of napaimute heart without angina pectoris documented as of this encounter Results ECHO COMPLETE (09/28/2021 7:45 AM EGG CASER) athologist Signature LVEF 55-60% CARDIOLOGY RESULTS Anatomical Region Laterality Modality Echocardiography Specimen (Source) Anatomical Collection Method Collection Time Re ceived Time Location / / Volume Laterality 09/28/2021 7:21 AM EGG CASER Narrative 09/28/2021 10:53 AM EGG CASER [id number]^JEROME^ANKITA^[facility] Echocardiography Laboratory [address] [place] [id number] Name: DONALDO BAUTISTA : 1940 Study Date: 09/28/2021 07:21 AM Age: 81 yrs Gender: Male Patient Location: [facility] Reason For Study: Essential hypertension , Nonrheumatic aortic valve stenosis, Hype Ordering Physician: ANKITA TRIMBLE Referring Physician: Ronnie Myers Performed By: [...] Medial E/e': 13.0 Report approved by: Morgan Cuelol 09/28 10:53 AM Procedure Note Craig Godfrey MD - 09/28/2021Forma tting of this note might be different from the original. [id number]^JEROME^ANKITA^[facility] Echocardiography Laboratory [address] [place] [id number] Name: DONALDO BAUTISTA : 1940 Study Date: 09/28/2021 07:21 AM Age: 81 yrs Gender: Male Patient Location: [facility] Reason For Study: Essential hypertension , Nonrheumatic aortic valve stenosis, Hype Ordering Physician: ANKITA TRIMBEL Referring Physician: Ronnie Myers Performed By: Frank [...] approved by: Morgan Cuello 09/28 10:53 AM Ankita Trimble MD CV ECHO ORDERABLES documented in this encounter Visit Diagnoses Diagnosis Essential hypertension Unspecified essential hypertension Nonrheumatic aortic valve stenosis Aortic valve disorders Hyperlipidemia LDL goal <70 Other and unspecified hyperlipidemia Coronary artery disease involving napaimute coronary artery of napaimute heart without angina pectoris Mixed hyperlipidemia Essential hypertension Unspecified essential hypertension Nonrheumatic aortic valve stenosis Aortic valve disorders Hyperlipidemia LDL goal <70 Other and unspecified hyperlipidemia Coronary artery disease involving napaimute coronary artery of napaimute heart without angina pectoris documented in this encounter Care Teams Test Clerk Relationship Specialty Start Date End Date Senthil Mckeon, PCP - General 12/03/18 Zen Rousseau MD MD Family Practice 07/31/12 [facility] [address] [place] [address] Ankita Trimble Assigned Heart and 05/27/20 2 MD [facility] Provider [address] [place] [address] documented as of this encounter
--- OUTSIDE RECORDS SUMMARY | 2022-04-05 08:00 | XMS_ITS | Encounter Summary ---
:1940 Author Organization [place] Address [facility] [place] [address] Care Team Providers Name Role Phone Zen Rousseau MD Unavailable Senthil Mckeon MD Primary Care Provider [phone] Ta Trimble MD Unavailable [phone] Reason for Referral (Routine) - Closed Specialty Diagnoses / Procedures Referred By Contact Refer red To Contact Diagnoses Essential hypertension Nonrheumatic aortic valve stenosis Hyperlipidemia LDL goal <70 Coronary artery disease involving samish coronary artery of samish heart without angina pectoris [facility] [address] [facility] [address] [place] [address] Referral ID Status Reason Start Date Expiration Date Visits Requ ested Visits Authorized [id number] Closed 08/15/2020 08/15/2021 1 1 GEMENT CONSULTANT Reason for Visit Reason Onset Date Comments Refill Request 08/15/2020 metoprolol tartrate Encounter Details Date Type Department Care Team Description 08/15/2020 Refill [facility] Wendy Downs, Refill Request Health Heart RN (metoprolol tar trate) [facility] [address] [employer] [address] [place] [address] Social History Tobacco Use Types Packs/Day Years [...] this encounter Miscellaneous Notes Telephone Encounter - Wendy Downs RN - 08/15/2020 1:54 PM CST Received refill request for: Metoprolol Tartrate Last OV was: 10/20/[address] Trimble Labs/EKG: n/a F/U scheduled: orders in Epic for 10/2020. Not yet scheduled. Order placed for OV. Letter sent New script sent to: Willy GEMENT CONSULTANT documented in this encounter Plan of Treatment Scheduled Referrals Name Type Priority Associated Diagnoses Order S chedule Follow-Up with Referral Routine Essential hypert ension Expected: 11/01/2020 Magistrate Nonrheumatic aortic (Approxi mate), valve stenosis Expires: 08/15/2021 Hyperlipidemia LDL goal <70 Coronary artery disease involving samish coronary artery of samish heart without angina pectoris documented as of this encounter Visit Diagnoses Diagnosis Nonrheumatic aortic valve stenosis - [place] day Aortic valve disorders Essential hypertension Unspecified essential hypertension Hyperlipidemia LDL goal <70 Other and unspecified hyperlipidemia Coronary artery disease involving samish coronary artery of samish heart without angina pectoris documented in this encounter Care Teams Stave Mill Hand Relationship Specialty Start Date End Date Senthil Mckeon, PCP - General 12/03/18 Zen Rousseau MD MD Family Practice 07/31/[address] [address] Ta Trimble Assigned Heart and 05/27/20 2 MD [facility] Provider [address] [place] [address] documented as of this encounter
--- OUTSIDE RECORDS SUMMARY | 2022-04-05 08:00 | XMS_ITS | Encounter Summary ---
:1940 Author Organization [place] Address [address] [facility] [place] [address] Care Team Providers Name Role Phone Zen Rousseau MD Unavailable Senthil Mckeon MD Primary Care Provider [phone] Ta Trimble MD Unavailable [phone] Encounter Details Date Type Department Care Team Description 10/25/2020 Orders Only [facility] [address] [facility] [address] [place] [address] Social History Tobacco Use Types Packs/Day Years [...] been in contact with No / Unsure 10/21/2020 1:52 PM CDT someone who was confirmed or suspected to have Coronavirus / COVID-19? documented as of this encounter Plan of Treatment Not on filedocumented as of this encounter Procedures Procedure Name Priority Date/Time Associated Diagnosis Comme nts LIPID PROFILE Routine 09/13/2020 Results for th is procedure are i n the results section . HEPATIC FUNCTION PANEL Routine 09/13/2020 Resul ts for this procedure are i n the results section . HEMOGLOBIN A1C Routine 09/13/2020 Results for t his procedure are i n the results section . documented in this encounter Results Hepatic panel (09/13/2020) P athologist Signature Protein Total 6.3 6.0 - 8.3 [place] g/dL [facility] Albumin 3.7 3.3 - 5.0 [place] g/dL [facility] Bilirubin Total 1.3 0.0 - 1.5 [place] mg/dL [facility] Alkaline 55 40 - 150 [place] Phosphatase U/L [facility] AST 23 12 - 35 [place] U/L [facility] ALT 15 4 - 50 U/L [facility] Bilirubin Direct 0.2 0.0 - 0.5 [place] mg/dL HOSPITAL Specimen (Source) Anatomical Location Collection Method / Collectio n Time Received Time / Laterality Volume Blood specimen 09/13/2020 (specimen) Patient Reported LAB - BLOOD ORDERABLES Performing Organization Address City/[facility]/ZIP [facility] Phon e Number [address] [address] [phone] (ABNORMAL) Hemoglobin A1c (09/13/2020) [facility] Signature Hemoglobin A1C 6.8 (A) 0 - 6.9 % [facility] Specimen (Source) Anatomical Location Collection Method / Collectio n Time Received Time / Laterality Volume Blood specimen 09/13/2020 (specimen) Patient Reported LAB - BLOOD ORDERABLES Performing Organization Address City/[facility]/ZIP Code Phon e Number [address] [address] Lipid Profile (09/13/2020) Patholo gist Method Time Signature Cholesterol 184 90 - 200 [place] mg/dL [facility] Triglycerides 100 40 - 197 [place] mg/dL [facility] HDL Cholesterol 79 40 mg/dL [facility] LDL Cholesterol 85 100 mg/dL [facility] Non HDL [place] Cholesterol [facility] Specimen (Source) Anatomical Location Collection Method / Collectio n Time Received Time / Laterality Volume Blood specimen 09/13/2020 (specimen) Patient Reported LAB - BLOOD ORDERABLES Performing Organization Address City/[facility]/ZIP [facility] Phon e Number [address] [place] [address] [phone] documented in this encounter Visit Diagnoses Not on filedocumented in this encounter Care Teams Freight Caller Relationship Specialty Start Date End Date Senthil Mckeon, PCP - General 12/03/18 Zen Rousseau MD MD Family Practice 07/31/[address] [address] Ta Trimble Assigned Heart and 05/27/20 2 MD [facility] Provider [address] [place] [address] documented as of this encounter
--- OUTSIDE RECORDS SUMMARY | 2022-04-05 08:00 | XMS_ITS | Encounter Summary ---
:1940 Author Organization [facility] Address [address] [facility] [address] Care Team Providers Name Role Phone Zen Rousseau MD Unavailable Senthil Mckeon MD Primary Care Provider [phone] Ta Trimble MD Unavailable [phone] Reason for Visit Auth/Cert Specialty Diagnoses / Procedures Referred By Contact Refer red To Contact Gastroenterology Diagnoses History of colon polyps History of colon polyps [Z86.010] Rh Endoscopy Procedures HC COLONOSCOPY W/WO BRUSH/WASH COLONOSCOPY [address] [place] [address] Phone: Fax: Referral ID Status Reason Start Date Expiration Date Visits Requ ested Visits Authorized [id number] 1 1 Encounter Details Date Type Department Care Team Description 04/06/2021 [facility] [place] [facility] Aga [address] [place] [facility] [place], [place] [address] [address] [address] [phone] [place], [place] [id number] (Wo rk) Social History Tobacco Use Types Packs/Day Years [...] Sign Reading Time Taken Comments Blood Pressure 134/68 04/06/2021 10:10 AM CDT Pulse 94 04/06/2021 10:10 AM CDT Temperature 35.7 ??C (96.3 ??F) 04/06/2021 8:52 AM CDT Respiratory Rate 16 04/06/2021 10:10 AM CDT Oxygen Saturation 96% 04/06/2021 10:10 AM CDT Inhaled Oxygen Concentration - - Weight 86.2 kg (190 lb) 04/06/2021 8:39 AM CDT Height 165.1 cm (5' 5) 04/06/2021 8:39 AM CDT Body Mass Index 31.62 04/06/2021 8:39 AM CDT documented in this encounter Discharge Instructions Discharge InstructionsNimo Allen - 04/06/2021 9:48 AM CDT Images from the original note were not included. Understanding Colon and Rectal Polyps The colon has a smooth lining composed of millions of cells. The colon (also called the large intestine) is a muscular tube that forms the last part of the digestive tract. It absorbs water and stores food waste. The colon is about 4 to 6 feet long. The rectum is the last 6 inches of the colon. The colon and rectum have a smooth lining composed of millions of cells. Changes in these cells can lead to growths in the colon that can become cancerous and should beremoved. When the Colon Lining Changes Changes that occur in the cells that line the colon or rectum can lead to growths called polyps. Over a period of years, polyps can turn cancerous. Removing polyps early may prevent cancer from ever forming. Polyps Polyps are fleshy clumps of tissue that form on the lining of the colon or rectum. Small polyps are usually benign (not cancerous). However, over time, cells in a polyp can change and become cancerous.The larger a polyp grows, the more likely this is to happen. Also, certain types of polyps known as a denomatous polyps are considered premalignant. This means that they will almost always become cancerous if they???re not removed. Cancer Almost all colorectal cancers start when polyp cells begin growing abnormally. As a cancerous tumor grows, it may involve more and more of the colon or rectum. In time, cancer can also grow beyond the colon or rectum and spread to nearby organs or to glands called lymph nodes. The cells can also travel to other parts of the body. This is known as metastasis. The earlier a cancerous tumor is removed, the better the chance of preventing its spread. ?? [phone] [facility], [address] [place] [address], [place] [address]. All rights reserved. This information is not intended as a substitute for professional medical care. Always follow your healthcare professional's instructions. The patient has received a copy of the Provation report the doctor has written and discharge instructions have been discussed with the patient and responsible adult. All questions were addressed and answered prior to patient discharge. AttachmentsThe following attachments cannot be sent through Care Everywhere. Colitis, Understanding (Algerian)documented in this encounter Medications at Time of Discharge [...] by 0 B 12 PO) mouth daily nitroglycerin Place 1 tablet (0.4 25 tablet 3 10/04/2015 (NITROSTAT) 0.4 MG SL mg) under the tongue tabletIndications: every 5 minutes as Coronary artery disease needed for chest pain involving elem coronary artery of elem heart without angina pectoris pantoprazole (PROTONIX) Take 40 mg by mouth 0 40 MG enteric coated every 48 hours tablet rosuvastatin (CRESTOR) Take 1 tablet (40 mg) 90 tablet 2 40 MG by mouth daily tabletIndications: Mixed hyperlipidemia, Coronary artery disease involving elem coronary artery of elem heart without angina pectoris VITAMIN D, Take 1,000 Units by 0 CHOLECALCIFEROL, PO mouth daily atorvastatin (LIPITOR) 0 10/21/2020 20 MG tablet furosemide (LASIX) 20 Take 1 tablet (20 mg) 90 tablet 3 10/04/2021 MG tabletIndications: by mouth as needed Essential hypertension, (Use as Directed for Coronary artery disease edema) involving elem coronary artery of elem heart without angina pectoris losartan (COZAAR) 50 MG Take 1 tablet (50 mg) 90 tablet 3 0 10/25/2020 10/04/2021 tabletIndications: by mouth daily Essential hypertension metoprolol tartrate Take 1 tablet (25 mg) 180 tablet 3 10/2510/04/2021 (LOPRESSOR) 25 MG by mouth 2 times tabletIndications: daily Essential hypertension documented as of this encounter Procedure Notes Jacque Kurtz MD - 04/06/2021 9:01 AM CDT PRE-PROCEDURE H&P CHIEF COMPLAINT / REASON FOR PROCEDURE: Surveillance, diarrhea, abnl CT scan PERTINENT HISTORY : Past Medical History: Diagnosis Date ??? CAD (coronary artery disease) mild/mod disease in RCA, INGRID to OM2 ??? Colon polyps ??? High cholesterol ??? Hypertension ??? Myocardial infarction (H) ??? Past history of myocardial infarction 06/2010 Non QWave ??? SOB (shortness of breath) ??? Stented coronary artery x1 stent ??? Uncomplicated asthma Past Surgical History: Procedure Laterality Date ??? [...] 06/2010 INGRID to OM2, RCA mild/mod disease Bleeding tendencies: No Relevant Family History: NONE Relevant Social History: NONE A relevant review of systems was performed and was negative ALLERGIES/SENSITIVITIES: Allergies Allergen Reactions ??? Fish Oil Other (See Comments) Bloody noses ??? Penicillins Itching CURRENT MEDICATIONS: No current outpatient medications on file. PRE-SEDATION ASSESSMENT: Lung Exam: normal Heart Exam: normal Airway Exam: normal Previous reaction to anesthesia/sedation: No Sedation plan based on assessment: Moderate (conscious) sedation ASA Classification: 2 - Mild systemic disease IMPRESSION: Surveillance, diarrhea, abnl ct scan PLAN: coloboscoopy Jacque Kurtz MD [facility] Office: [phone] documented in this encounter Plan of Treatment Not on filedocumented as of this encounter Procedures Procedure Name Priority Date/Time Associated Comments Diagnosis SURGICAL PATHOLOGY Routine 04/06/2021 9:12 AM Res ults for this EXAM CDT procedure are i n the results section. COLONOSCOPY Routine 04/06/2021 8:48 AM Results f or this CDT procedure are i n the results section. COLONOSCOPY, WITH 04/06/2021 8:48 AM History of colon POLYPECTOMY AND CDT polyps BIOPSY Special Needs Covid negative 04/03 jkk resu lts w/chart COLONOSCOPY, FLEXIBLE, WITH LESION 04/06/2021 8: 48 AM CDT History of colon polyps REMOVAL USING SNARE Special Needs Covid negative 04/03 jkk resu lts w/chart documented in this encounter Results Surgical Pathology Exam (04/06/2021 9:12 AM CDT) Component Value Ref Test Analysis Performed At [facility] Range Method Time Signature Case Report Surgical Pathology Report ? Case: [id number] ? 04/07/2021 Authorizing Provider: ??Jacque Parks MD ?? Collected: ? 04/06/2021 09:12 AM ? 1:04 PM LABORATOR Y Ordering Location: ? [facility] ?Received: ?04/06/2021 10:39 AM ? CDT ? [facility] ? Pathologist: ? Ramsey Ruelas MD PhD ? Specimens: ?? A) - Large Int estine, Colon, Ascending, ascending colon polyp x2 ? B) - Larg e Intestine, Colon, RANDOM COLON BIOPSIES R/O MICROSCOPIC COLITIS ? C) - Larg e Intestine, Colon, Transverse, TRANSVERSE COLON ??POLYPS X3 ? D) - Larg e Intestine, Colon, Descending, DESCENDING COLON POLYP X6 ? Final A(1). Colon, Ascending, polyps, polypectomy: 04/07/2021 RH Electronically Diagnosis -Tubular adenomas 1:04 PM LABORATORY s igned by Jessenia, -Negative for high-grade dysplasia and malignancy. CDT Ramsey Mtz MD PhD on at 1:04 PM B(2). Colon, random, biopsy: - Colonic mucosa with no specific histopathologic abnormalit ies. - No features of an acute or microscopic colitis are identif ied - Negative for dysplasia or malignancy. C(3). Colon, Transverse, polyps, polypectomy: -Tubular adenomas, fragments -Negative for high-grade dysplasia and malignancy. D(4). Colon, Descending, polyps, polypectomy: -Tubular adenomas, fragments -Negative for high-grade dysplasia and malignancy. Clinical Screening 04/07/2021 Information colonoscopy 1:04 PM LABORATORY CDT Case Images 04/07/2021 1:04 PM LABORATORY CDT Gross A(1). Large Intestine, Colon, Ascending, ascending col on polyp x2: 04/07/2021 RH Description The specimen is received in formalin, labeled with the patient's name, medical record number and other identifying information and designated ? ascending colon polyp x2? . It consists of two gamez soft 1:04 PM LABORATORY tissue fragments measuring 0 .3 cm and 0.4 cm in greatest dimension. Entirely submitted in one cassette. CDT B(2). Large Intestine, Colon, RANDOM COLON BIOPSIES R/ O MICROSCOPIC COLITIS: The specimen is received in formalin, labeled with the patient's name, medical record number and other identifying information and designated ? random colon biopsies? . It consists of 5 gamez soft tissu e fragments ranging from 0.1 -0.3 cm in greatest dimension. Entirely submitted in one cassette. C(3). Large Intestine, Colon, Transverse, TRANSVERSE COLON P OLYPS X3: The specimen is received in formalin, labeled with the patient's name, medical record number and other identifying information and designated ? transverse colon polyp x3? . It consists of 5 gamez soft t issue fragments ranging from 0.2-1.2 cm in greatest dimension. Entirely submitted in one cassette. D(4). Large Intestine, Colon, Descending, DESCENDING COLON P OLYP X6: The specimen is received in formalin, labeled with the patient's name, medical record number and other identifying information and designated ? descending colon polyp x6? . It consists of multiple gamez soft tissue fragments rangi ng from 0.2-1.3 cm in greatest dimension. Entirely submitted in one cassette. (BISMARK Joe ASCP CM) Microscopic Microscopic examination was performed. 04/07/2021 RH Description 1:04 PM LABORATORY CDT Performing The technical 04/07/2021 Labs component of this 1:04 PM LABORATORY testing was CDT completed at [facility] Specimen Anatomical Collection Method Collection Time Receive d Time (Source) Location / / Volume Laterality Polyp ASCENDING COLON 04/06/2021 9:12 AM 2020 STRUCTURE / CDT 10:39 AM CDT Unknown Polyp COLON STRUCTURE / 04/06/2021 9:18 AM 09/0 09/2020 (morphologic Unknown CDT 10:39 AM CDT abnormality) Polyp TRANSVERSE COLON 04/06/2021 9:19 AM 04/06 (morphologic STRUCTURE / CDT 10:39 AM CDT abnormality) Unknown Polyp DESCENDING COLON 04/06/2021 9:25 AM 04/06 (morphologic STRUCTURE / CDT 10:39 AM CDT abnormality) Unknown Jacque NORMAN - KYLE EDEN Performing Organization Address City/State/ZIP Code [place] [address] [facility] [address] (1st floor, no room number) COLONOSCOPY (04/06/2021 8:48 AM CDT) [facility] gist Method Time Signature COLONOSCOPY [facility] RADIOLOGY RESULTS Patient Name: Sreedhar Bautista ? Procedure Date: 04/06/2021 8:48 AM ? Accou nt Number: [id number] Date of : 1940 ?Admit Type: Out patient Age: 81 ? Gender: Male Attending MD: Jacque jerry MD ?Total Sedation Time: __32___ minutes of continuous bedside 1:1 Instrument Name: 221 - Adult Colonoscope Procedure: ?Colonoscopy Indications: ?Surveillance for history of colon polyps, abnormal ?CT scan with small bowel inflammation, diarrhea Providers: ?Jacque Kurtz MD (Docto r) Referring MD: ? Medicines: ?Midazo talbert 1 mg IV, Fentanyl 75 micrograms IV Complications: ?No immediate complications. Procedure: ?Pre-Anesthesia Assessment: ?- Prior to the procedure, a History and Physical ?was performed, and patient medications and ?allergies were reviewed. The patient is competent. ?The risks and benefits of the procedure and the ?sedation options and risks were discussed with the ?patient. All questions were answered and informed ?consent was obtained. Patient identification and ?proposed procedure were verified by the physician ?and the nurse in the procedure room. Mental Status ?E xamination: alert and oriented. Airway ?Examination: normal oropharyngeal airway and neck ?mobility. Respiratory Examination: clear to ?auscultation. CV Examination: normal. Prophylactic ?Antibiotics: The patient does not require ?prophylactic antibiotics. Prior Anticoagulants: The ?patient has taken no previous anticoagulant or ?antiplatelet agents. ASA Grade Assessment: II - A ?patient with mild systemic disease. After reviewing ?the risks and benefits, the patient was deemed in ?satisfactory condition to undergo the procedure. ?The anesthesia plan was to use moderate sedation / ?analgesia (conscious sedation). Immediately prior ?to administration of medications, the patient was ?re-assessed for adequacy to receive sedatives. The ?heart rate, respiratory rate, oxygen saturations, ?blood pressure, adequacy of pulmonary ventilation, ?and response to care were monitored throughout the ?procedure. The physical status of the patient was ?re-assessed after the procedure. ?After obtaining informed consent, the colonoscope ?was passed under direct vision. Throughout the ?procedure, the patient's blood pressure, pulse, and ?oxygen saturations were monitored continuously. The ?Olympus Adult Colonoscope, Model # CF- H190L, [place] ?# 221, SN # [id number] was introduced through the anus ?and advanced to the ileocolonic anastomosis. The ?colonoscopy was performed without difficulty. The ?patient tolerated the procedure well. The quality ?of the bowel preparat ion was good. ? Findings: ? ileocolonic anastomosis at the ascending colon. About 7 cm of the ? neoterminal ileum was evaluated and it was normal. ? Two sessile polyps were found in the ascending colon. The polyps were 2 ? to 3 mm in size. These polyps wer e removed with a cold snare. Resection ? and retrieval were complete. ? Three sessile polyps were found in the transverse colon. The polyps were ? 3 to 5 mm in size. These polyps were removed with a c old snare. ? Resection and retrieval were complete. ? Six sessile polyps we re found in the descending colon. The polyps were 3 ? to 4 mm in size. These polyps wer e removed with a cold snare. Resection ? and retrieval were complete. ? Internal hemorrhoids were found during retroflexion . The hemorrhoids ? were small. ? The exam was otherwise without abnormalit y. Random colon biopsies were ? taken. ? Impression: ? - Two 2 to 3 mm polyps in the ascending colon, ?removed with a cold snare. Resected and retrieved. ?- Three 3 to 5 mm polyps in the transverse colon, ?removed with a cold snare. Resected and retrieved. ?- Six 3 to 4 mm polyps in the descending colon, ?removed with a cold snare. Resected and retrieved. ?- Internal hemorrhoid s. ?- The examination was otherwise normal. Recommendation: ? Based on current national guidelines you do not ?need further screening colonoscopies, we can stop ?between the ages of 7 6-85. ? Procedure Code(s): ? --- Professional --- ? 27347, Colonoscopy, flexible; with removal of tumor (s), polyp(s), or ? other lesion(s) by snare technique CPT copyright 2019 [employer]. All rights reserved. The codes documented in this report are prelimin nav and upon chief transfer and pumphouse operator review may be revised to meet current compliance requirements. Electronically signed by Concha Kurtz M.D. Jacque Kurtz MD 04/06/2021 9:43:49 AM I was physically present for the entire viewing portion of t he exam. Jacque Kurtz MD Number of Addenda: 0 Note Initiated On: 04/06/2021 8:48 AM MRN: ?[id number] Procedure Date: ? 04/06/2021 8:48:51 AM Scope Withdrawal Time: 0 hours 22 minutes 37 seconds Total Procedure Duration: 0 hours 28 minutes 43 seconds Estimated Blood Loss: ? minimal Scope In: 9:04:40 AM Scope Out: 9:33:23 AM Specimen (Source) Anatomical Collection Method Collection Time Re ceived Time Location / / Volume Laterality 04/06/2021 8:48 AM CDT Jacque Kurtz MD PROCEDURES Performing Organization Address City/State/ZIP Code Phon e Number RADIOLOGY RESULTS documented in this encounter Visit Diagnoses Not on filedocumented in this encounter Administered Medications Inactive Administered Medications - up to 3 most recent administrations Medication Order MAR Action Action Date Dose Rate Site fentaNYL (PF) (SUBLIMAZE) Given 04/06/2021 9:08 AM CDT 25 mcg injection 25 mcg 25 mcg, Intravenous, EVERY 5 MIN PRN, moderate to severe pain, Administer over 2 Minutes, Starting on [facility] 04/06/21 at 0900, For 24 hours, Caution: may have synergistic effect when used with midazolam. If inadequate response, may repeat up to maximum of 100 mcg total dose until RASS goal achieved. Doses can be exceeded under direct oversight of patient by physician. Only given for procedural sedation while physician present. Nurse to discontinue this medication when procedure complete. For ordered IV doses 1-100 mcg give IV Push undiluted over a minimum of 3-5 minutes. Given 04/06/2021 9:02 AM CDT 25 mcg fentaNYL (PF) (SUBLIMAZE) injection 50 m cg Given 04/06/2021 9:01 AM CDT 25 mcg 50 mcg, Intravenous, ONCE WITHIN 24 HRS, Administer over 2 Minutes, On [facility] 04/06/21 at 0900, For 1 dose, Caution: may have synergistic effect when used with midazolam. If inadequate response, may repeat 25 mcg IV slowly every 5 minutes PRN pain until RASS goal achieved. (Maximum of 100 mcg total dose). Doses can be exceeded under direct oversight of patient by physician. Only given for procedural sedation while physician present. Nurse to discontinue this medication when procedure complete. For ordered IV doses 1-100 mcg give IV Push undiluted over a minimum of 3-5 minutes. flumazenil (ROMAZICON) injection 0.2 mg 0.2 mg, Intravenous, EVERY 1 MIN PRN, benzodiazepine r eversal, over sedation, Administer over 1 Minutes, Starting on [facility] 04/06/21 at 0840, For 12 hours, Give over 15 seconds. If inadequate response after 45 seconds, may repeat up to a MAX total dose of 1 mg. Continue monitoring until discharge criteria are met for a minimum of 2 hours Irritant. For ordered IV doses 0 .1-1 mg, give IV Push undiluted. Administer each 0.2mg over 15 seconds. Use with cau tion in patients on benzodiazepine therapy. flumazenil (ROMAZICON) injection 0.2 mg 0.2 mg, Intravenous, EVERY 1 MIN PRN, benzodiazepine r eversal, over sedation, Administer over 1 Minutes, Starting on [facility] 04/06/21 at 0840, For 48 hours, Give over 15 seconds. If inadequate response after 45 seconds, may repeat up to a MAX total dose of 1 mg. Continue monitoring until discharge criteria met for a minimum of 2 hours. Irritant. For ordered IV doses 0. 1-1 mg, give IV Push undiluted. Administer each 0.2mg over 15 seconds. Use with cau tion in patients on benzodiazepine therapy. lidocaine (LMX4) kit Topical, EVERY 1 HOUR PRN, pain, with VAD insertion, S tarting on [facility] 04/06/21 at 0840, Apply at least 30 minutes prior to VAD insertion in divided doses as needed for size of site for insertion. MAX Dose: 2.5 g (?? of 5 g tube) Do NOT give if patient has a history of allergy to any local anesthetic or any adilene product. Do NOT use both lidocaine intradermal/subcu taneous injection and the lidocaine cream on the same site., Pre-procedure lidocaine 1 % 0.1-1 mL 0.1-1 mL, Other, EVERY 1 HOUR PRN, mild pain with VAD insertion, Starting on [facility] 04/06/21 at 0840, MAX dose 1 mL subcutaneous OR intrader mal along the side of the vein in divided doses as needed for VAD insertion. Do NOT give if patient has a history of allergy to any local anesthet ic or any adilene product. Do NOT use both lidocaine intradermal/subcutaneous injec tion and the lidocaine cream on the same site., Pre-procedure midazolam (VERSED) injection 0.5 mg 0.5 mg, Intravenous, Administer over 1 M inutes, EVERY 4 MIN PRN, sedation, Starting on [facility] 04/06/21 at 0900, For 24 hours, Caution: when use d with opioids, may need lower doses. If inadequate response, may repeat until RASS goal achieved. (Maximum of 3.5 mg total dose). Doses can be exce eded under direct oversight of patient by physician. Only given for procedural sedation while ph ysician present. Nurse to discontinue this medication when procedure complete. T his drug may cause significant respiratory depression. Monitor respirator y status and vital signs carefully for 1 hour after each dose. midazolam (VERSED) injection 1 mg Given 04/06/2021 9:01 AM CDT 1 mg 1 mg, Intravenous, Administer over 1 Minutes, ONCE WITHIN 24 HRS, On [facility] 04/06/21 at 0900, For 1 dose, Caution: when used with opioids, may need lower doses. If inadequate response may repeat 0.5 mg IV slowly every 4 minutes PRN sedation until RASS goal achieved. (Maximum of 3.5 mg total dose). Doses can be exceeded under direct oversight of patient by physician. Only given for procedural sedation while physician present. Nurse to discontinue this medication when procedure complete. This drug may cause significant respiratory depression. Monitor respiratory status and vital signs carefully for 1 hour after each dose. naloxone (NARCAN) injection 0.2 mg 0.2 mg, Intravenous, EVERY 2 MIN PRN, op ioid reversal, Starting on [facility] 04/06/21 at 0840, Administer intravenous route when available and notify provider when administered. For unintended sedation or respiratory depression if all of the below criteria are met: ~ respiratory rate LES S than or EQUAL to 8. ~SaO2 less than 92% and or/end-tidal CO2 is greater than 50. ~ the patient is receiving an opioid, has unintended sedations assessed as RASS (-3), and is cur rently not on mechanical ventilation. RASS scale moderate (-3) is movement or eye opening to voice but no eye contact. Patient Monitoring Once the patient has demonstrated a response to the naloxone, continue to monitor respiratory rate, depth, oxygen saturation and end-tidal CO2 (if available) every 15 mi nutes x 2, then every 30 minutes x 2, then every 1 hour x 1 after each naloxone dose. Consider tr ansfer to ICU if patient respiratory parameters have not improved after 4 nalox one doses. For ordered IV doses 0.1-2mg give IVP. Give each 0.4mg over 15 seconds in emergency situations. For non-emergent situations further dilu te in 9mL of NS to facilitate titration of response. naloxone (NARCAN) injection 0.2 mg 0.2 mg, Intramuscular, EVERY 2 MIN PRN, opioid reversal, Starting on [facility] 04/06/21 at 0840, Administer intramuscular if an int ravenous route is not available and notify provider when administered. For unintend ed sedation or respiratory depression if all of the below criteria are met: ~ respiratory rate LESS than or EQUAL to 8. ~SaO2 less than 92% and or/end-tidal CO2 is greater th an 50. ~ the patient is receiving an opioid, has unintended sedations assessed as RASS (-3), and is currently not on mechanical ventilation. RASS scale moderate (-3) is movement or eye opening to voice but no eye contact. Patient Monitoring Once the patient has demonstrated a response to the naloxone, continue to m onitor respiratory rate, depth, oxygen saturation and end-tidal CO2 (if availab le) every 15 minutes x 2, then every 30 minutes x 2, then every 1 hour x 1 after each naloxone dose. Consider transfer to ICU if patient respiratory parameters have not improved after 4 naloxone doses. For ordered IV doses 0.1-2mg give IVP. Give each 0.4mg over 15 seconds in emergency situations. For non -emergent situations further dilute in 9mL of NS to facilitate titration of response. naloxone (NARCAN) injection 0.2 mg 0.2 mg, Intravenous, EVERY 2 MIN PRN, op ioid reversal, Starting on [place] 04/06/21 at 0840, For 48 hours, Administer intraveno us route when available and notify provider when administered. For unintended sedati on or respiratory depression if all of the below criteria are met: ~ respiratory ra te LESS than or EQUAL to 8. ~SaO2 less than 92% and or/end-tidal CO2 is greater than 50. ~ the patient is receiving an opioid, has unintended sedations assessed as BOB S (-3), and is currently not on mechanical ventilation. RASS scale moderate (-3) is movement or eye opening to voice but no eye contact. Patient Monitoring Once the patient has demonstrated a response to the naloxone, continue to monitor respiratory rate, depth, oxygen saturation and end-tidal CO2 (if available) every 15 mi nutes x 2, then every 30 minutes x 2, then every 1 hour x 1 after each naloxone dose. Consider tr ansfer to ICU if patient respiratory parameters have not improved after 4 nalox one doses. For ordered IV doses 0.1-2mg give IVP. Give each 0.4mg over 15 seconds in emergency situations. For non-emergent situations further dilu te in 9mL of NS to facilitate titration of response. naloxone (NARCAN) injection 0.2 mg 0.2 mg, Intramuscular, EVERY 2 MIN PRN, opioid reversal, Starting on [place] 04/06/21 at 0840, For 48 hours, Administer intramuscular if an int ravenous route is not available and notify provider when administered. For u nintended sedation or respiratory depression if all of the below criteria ar e met: ~ respiratory rate LESS than or EQUAL to 8. ~SaO2 less than 92% and or/end-tidal CO2 is greater than 50. ~ the patient is receiving an opioid , has unintended sedations assessed as RASS (-3), and is currently not on mechanical ventilation. RASS scale moderate (-3) is movement or eye opening to voice but no eye contact. Patient Monitoring Once the patient has demonstrated a response to the naloxone, c ontinue to monitor respiratory rate, depth, oxygen saturati on and end-tidal CO2 (if available) every 15 minutes x 2, then every 30 minutes x 2, then every 1 hour x 1 after each naloxone dose. Consider transfer to ICU if patient respiratory parameters have not improved after 4 naloxone doses. For ord ered IV doses 0.1-2mg give IVP. Give each 0.4mg over 15 seconds in emergency situa tions. For non-emergent situations further dilute in 9mL of NS to facilitate titration of respons e. naloxone (NARCAN) injection 0.4 mg 0.4 mg, Intravenous, EVERY 2 MIN PRN, op ioid reversal, Starting on [place] 04/06/21 at 0840, Administer intravenous route when available and notify provider when administered. For unintended sedation or respiratory depression if all of the below criteria are met: ~ respiratory rate LES S than or EQUAL to 8. ~ SaO2 less than 92% and or/end-tidal CO2 is greater than 50. ~ the patient is receiving an opioid, has unintended sedation assessed as RASS (-4 ) or (-5) and patient is currently not on mechanical ventilation. RASS scale (-4) is deep sedation with no response to voice but movement or eye opening to physical stimulation. R ASS scale (-5) is unarousable. Patient Monitoring Once the patient has demonstrated a response to the naloxone, continue to monitor respiratory rate, depth, oxygen saturation and end-tidal CO2 (if available) every 15 mi nutes x 2, then every 30 minutes x 2, then every 1 hour x 1 after each naloxone dose. Consider tr ansfer to ICU if patient respiratory parameters have not improved after 4 nalox one doses. For ordered IV doses 0.1-2mg give IVP. Give each 0.4mg over 15 seconds in emergency situations. For non-emergent situations further dilu te in 9mL of NS to facilitate titration of response. naloxone (NARCAN) injection 0.4 mg 0.4 mg, Intramuscular, EVERY 2 MIN PRN, opioid reversal, Starting on [place] 04/06/21 at 0840, Administer intramuscular if an int ravenous route is not available and notify provider when administered. For unintend ed sedation or respiratory depression if all of the below criteria are met: ~ res piratory rate LESS than or EQUAL to 8. ~ SaO2 less than 92% and or/end-tidal CO2 is greater leia n 50. ~ the patient is receiving an opioid, has unintended sedation assessed as RASS (-4) or (-5) and patient is currently not on mechanical ventilation. RA SS scale (-4) is deep sedation with no response to voice but movement or eye opening to physical stimulation. RASS scale (-5) is unarousa ble. Patient Monitoring Once the patient has demonstrated a response to the nalox one, continue to monitor respiratory rate, depth, oxygen saturation and end-tidal CO2 (if availab le) every 15 minutes x 2, then every 30 minutes x 2, then every 1 hour x 1 after each naloxone dose. Consider transfer to ICU if patient respiratory parameters have not improved after 4 naloxone doses. For ordered IV doses 0.1-2mg give IVP. Give each 0.4mg over 15 seconds in emergency situations. For non -emergent situations further dilute in 9mL of NS to facilitate titration of response. naloxone (NARCAN) injection 0.4 mg 0.4 mg, Intravenous, EVERY 2 MIN PRN, op ioid reversal, Starting on [place] 04/06/21 at 0840, For 48 hours, Administer intraveno us route when available and notify provider when administered. For unintended sedati on or respiratory depression if all of the below criteria are met: ~ respiratory rate LESS than o r EQUAL to 8. ~ SaO2 less than 92% and or/end-tidal CO2 is greater than 50. ~ th e patient is receiving an opioid, has unintended sedation assessed as RASS (-4) or (-5) and patient is currently not on mechanical ventilation. RASS scale (-4) is deep sedation with no response to voice but movement or eye op ening to physical stimulation. RASS scale (-5) is unarousable. Patient Monitoring Once the patie nt has demonstrated a response to the naloxone, continue to monitor respirat ory rate, depth, oxygen saturation and end-tidal CO2 (if available) every 15 m inutes x 2, then every 30 minutes x 2, then every 1 hour x 1 after each naloxone dose. Consider transfer to ICU if patient respiratory parameters garcia ve not improved after 4 naloxone doses. For ordered IV doses 0.1-2mg give IVP. Give each 0.4mg ove r 15 seconds in emergency situations. For non-emergent situations further dilute in 9mL of NS to facilitate titration of response. naloxone (NARCAN) injection 0.4 mg 0.4 mg, Intramuscular, EVERY 2 MIN PRN, opioid reversal, Starting on [place] 04/06/21 at 0840, For 48 hours, Administer intramuscular if an int ravenous route is not available and notify provider when administered. For u nintended sedation or respiratory depression if all of the below criteria ar e met: ~ respiratory rate LESS than or EQUAL to 8. ~ SaO2 less leia n 92% and or/end-tidal CO2 is greater than 50. ~ the patient is receiving an opioid , has unintended sedation assessed as RASS (-4) or (-5) and patient is currently not on mechanica l ventilation. RASS scale (-4) is deep sedation with no response to voice but mo vement or eye opening to physical stimulation. RASS scale (-5) is unarousable. Patient Monitoring Once the patient has demonstrated a response to the naloxone, c ontinue to monitor respiratory rate, depth, oxygen saturati on and end-tidal CO2 (if available) every 15 minutes x 2, then every 30 minutes x 2, then every 1 hour x 1 after each naloxone dose. Consider transfer to ICU if patient respiratory parameters have not improved after 4 naloxone doses. For ord ered IV doses 0.1-2mg give IVP. Give each 0.4mg over 15 seconds in emergency situa tions. For non-emergent situations further dilute in 9mL of NS to facilitate titration of respons e. ondansetron (ZOFRAN) injection 4 mg 4 mg, Intravenous, ONCE PRN, nausea, vomiting, Adminis ter over 2-5 Minutes, Starting on [place] 04/06/21 at 0840, For 1 do se, Give in ENDO pre procedure prep area. Irritant. For ordered IV doses 0.1-4 mg, give IV Push undiluted over 2-5 minutes., Pre-procedure ondansetron (ZOFRAN) injection 4 mg 4 mg, Intravenous, EVERY 6 HOURS PRN, nausea, vomiting , Administer over 2-5 Minutes, Starting on [place] 04/06/21 at 0840, This is Step 1 of nausea and vomiting management. If nausea not resolved in 15 minutes, go t o Step 2 prochlorperazine (COMPAZINE). Irritant. For ordered IV do ses 0.1-4 mg, give IV Push undiluted over 2-5 minutes. ondansetron (ZOFRAN-ODT) ODT tab 4 mg 4 mg, Oral, EVERY 6 HOURS PRN, nausea, v omiting, Starting on [facility] 04/06/21 at 0840, This is Step 1 of nausea and vomiting management. If n ausea not resolved in 15 minutes, go to Step 2 prochlorperazine (COMPAZINE). Do not push through foil backing. Peel back foil and gently remove. Place on to ngue immediately. Administration with liquid unnecessary W ith dry hands, peel back foil backing and gently remove tablet. Do not push oral d isintegrating tablet through foil backing. Administer immediately on tongue and oral disintegrati ng tablet dissolves in seconds, then swallow with saliva. Liquid not required . prochlorperazine (COMPAZINE) injection 5 mg 5 mg, Intravenous, EVERY 6 HOURS PRN, nausea, vomiting , Administer over 1-2 Minutes, Starting on [place] 04/06/21 at 0840, This is Step 2 of nausea and vomiting management. If nausea not resolved in 15 -30 minutes, Notify provider. For ordered IV doses 0.1-10 mg, give IV push undiluted, each 5 mg over 1 minute. prochlorperazine (COMPAZINE) tablet 5 mg 5 mg, Oral, EVERY 6 HOURS PRN, nausea, v omiting, Starting on [place] 04/06/21 at 0840, This is Step 2 of nausea and vomiting ma nagement. If nausea not resolved in 15-30 minutes, Notify provider. simethicone 133mg/2mL oral suspension 13 3 mg 133 mg, Oral, ONCE PRN, DURING COLONOSCO PY PRN, Starting on [place] 04/06/21 at 0916, For 1 dose sodium chloride (PF) 0.9% PF flush 3 mL 3 mL, Intracatheter, EVERY 8 HOURS, First dose on [place] 04/06/21 at 0900, to lock peripheral IV dormant line, Pre-procedure sodium chloride (PF) 0.9% PF flush 3 mL Given 04/06/2021 9:08 AM CDT 3 mLs 3 mL, Intracatheter, EVERY 1 MIN PRN, line flush, other, to ensure patency or to lock dormant line, Starting on [place] 04/06/21 at 0840, Pre-procedure Given 04/06/2021 9:03 AM CDT 3 mLs Given 04/06/2021 9:02 AM CDT 3 mLs documented in this encounter Active and Recently Administered Medications Times are shown in CDT. Scheduled Medication Order 04/04/2021 04/05/2021 04/06/2021 fentaNYL (PF) (SUBLIMAZE) injection 50 mcg (COMPLETED) 900 (Given - Provider: Paula Ho RN - Comment: vorconcha) 50 mcg, Intravenous, ONCE WITHIN 24 HRS, Administer over 2 Minutes, On [place] 04/06/21 at 0900, For 1 dose, Caution: may have synergistic effect when used with midazolam. If inadequate response, may repeat 2 5 mcg IV slowly every 5 minutes PRN pain until RASS goal achieved. (Maximum of 100 mcg total dose). Doses can be exceeded under direct oversight of patient by physician. Only given for procedural sedati on while physician present. Nurse to dis continue this medication when procedure complete. For ordered IV doses 1-100 mcg give IV Push undiluted over a minimum of 3-5 minutes. midazolam (VERSED) injection 1 mg (COMPLETED) 900 (Given - Provider: Paula Ho RN) 1 mg, Intravenous, Administer over 1 Min utes, ONCE WITHIN 24 HRS, On [place] 04/06/21 at 0900, For 1 dose, Caution: when used with opioids, may need lower doses. If inadequate response may repeat 0.5 mg IV sl owly every 4 minutes PRN sedation until RASS goal achieved. (Maximum of 3.5 mg total dose). Doses can be exceeded under direct oversight of patient by physician. Only given for procedural sedation while physician present. Nurse to discontinue this medication when procedure complete. This drug may cause significant respiratory depression. Monitor respiratory status and vital signs carefully for 1 hour after each dose. sodium chloride (PF) 0.9% PF flush 3 mL 0900 (Canceled Entry - Provider: Orders Generic Provider - Comment: Automatically canceled at discontinue of medication order) 3 mL, Intracatheter, EVERY 8 HOURS, Firs t dose on [place] 04/06/21 at 0900, to lock peripheral IV dormant line, Pre-procedure PRN Medication Order 04/04/2021 04/05/2021 04/06/2021 fentaNYL (PF) (SUBLIMAZE) injection 25 mcg 901 (Given - Provider: Paula Ho, RN)907 (Given - Provider: Paula Ho RN - Comment: vorb) 25 mcg, Intravenous, EVERY 5 MIN PRN, mo derate to severe pain, Administer over 2 Minutes, Starting on [place] 04/06/21 at 0900, For 24 hours, Caution: may have synergistic effect when used with midazolam. If inadequate response, may repeat up to ma ximum of 100 mcg total dose until RASS goal achieved. Doses can be exceeded under direct oversight of patient by physician. Only given for procedural sedation whi le physician present. Nurse to discontin ue this medication when procedure complete. For ordered IV doses 1-100 mcg give IV Push undiluted over a minimum of 3-5 minutes. flumazenil (ROMAZICON) injection 0.2 mg 0.2 mg, Intravenous, EVERY 1 MIN PRN, be nzodiazepine reversal, over sedation, Administer over 1 Minutes, Starting on [place] 04/06/21 at 0840, For 12 hours, Give over 15 seconds. If inadequate response after 45 seconds, may repeat up to a MAX total dose of 1 mg. Continue monitoring until discharge criteria are met for a minimum of 2 hours Irritant. For ordered IV doses 0.1-1 mg, give IV Push undiluted. Admi nister each 0.2mg over 15 seconds. Use w ith caution in patients on benzodiazepine therapy. flumazenil (ROMAZICON) injection 0.2 mg 0.2 mg, Intravenous, EVERY 1 MIN PRN, be nzodiazepine reversal, over sedation, Administer over 1 Minutes, Starting on [place] 04/06/21 at 0840, For 48 hours, Give over 15 seconds. If inadequate response after 45 seconds, may repeat up to a MAX total dose of 1 mg. Continue monitoring until discharge criteria met for a minimum of 2 hours. Irritant. For ordered IV doses 0.1-1 mg, give IV Push undiluted. Adminis ter each 0.2mg over 15 seconds. Use with caution in patients on benzodiazepine therapy. lidocaine (LMX4) kit Topical, EVERY 1 HOUR PRN, pain, with VA D insertion, Starting on [place] 04/06/21 at 0840, Apply at least 30 minutes prior to VAD insertion in divided doses as needed for size of site for insertion. MAX Dose: 2.5 g (?? of 5 g tube) Do NOT give if p atient has a history of allergy to any local anesthetic or any adilene product. Do NOT use both lidocaine intradermal/subcutaneous injection and the lidocaine cream on the same site., Pre-procedure lidocaine 1 % 0.1-1 mL 0.1-1 mL, Other, EVERY 1 HOUR PRN, mild pain with VAD insertion, Starting on [place] 04/06/21 at 0840, MAX dose 1 mL subcutaneous OR intradermal along the side of the vein in divided doses as needed for VAD i nsertion. Do NOT give if patient has a h istory of allergy to any local anesthetic or any adilene product. Do NOT use both lidocaine intradermal/subcutaneous injection and the lidocaine cream on the same site., Pre-procedure midazolam (VERSED) injection 0.5 mg 0.5 mg, Intravenous, Administer over 1 M inutes, EVERY 4 MIN PRN, sedation, Starting on [place] 04/06/21 at 0900, For 24 hours, Caution: when used with opioids, may need lower doses. If inadequate response, ma y repeat until RASS goal achieved. (Maxi mum of 3.5 mg total dose). Doses can be exceeded under direct oversight of patient by physician. Only given for procedural sedation while physician present. Nurse to discontinue this medication when pro cedure complete. This drug may cause significant respiratory depression. Monitor respiratory status and vital signs carefully for 1 hour after each dose. naloxone (NARCAN) injection 0.2 mg 0.2 mg, Intravenous, EVERY 2 MIN PRN, op ioid reversal, Starting on [place] 04/06/21 at 0840, Administer intravenous route when available and notify provider when administered. For unintended sedation or respi ratory depression if all of the below cr iteria are met: ~ respiratory rate LESS than or EQUAL to 8. ~SaO2 less than 92% and or/end-tidal CO2 is greater than 50. ~ the patient is receiving an opioid, has unintended sedations assessed as RASS ( -3), and is currently not on mechanical ventilation. RASS scale moderate (-3) is movement or eye opening to voice but no eye contact. Patient Monitoring Once the patient has demonstrated a response to t he naloxone, continue to monitor respiratory rate, depth, oxygen saturation and end-tidal CO2 (if available) every 15 minutes x 2, then every 30 minutes x 2, then every 1 hour x 1 after each naloxone do se. Consider transfer to ICU if patient respiratory parameters have not improved after 4 naloxone doses. For ordered IV doses 0.1-2mg give IVP. Give each 0.4mg ov er 15 seconds in emergency situations. F or non-emergent situations further dilute in 9mL of NS to facilitate titration of response. naloxone (NARCAN) injection 0.2 mg 0.2 mg, Intramuscular, EVERY 2 MIN PRN, opioid reversal, Starting on [place] 04/06/21 at 0840, Administer intramuscular if an intravenous route is not available and notify provider when administered. For unin tended sedation or respiratory depressio n if all of the below criteria are met: ~ respiratory rate LESS than or EQUAL to 8. ~SaO2 less than 92% and or/end-tidal CO2 is greater than 50. ~ the patient is receiving an opioid, has unintended yaritza tions assessed as RASS (-3), and is currently not on mechanical ventilation. RASS scale moderate (-3) is movement or eye opening to voice but no eye contact. Feli ent Monitoring Once the patient has demo nstrated a response to the naloxone, continue to monitor respiratory rate, depth, oxygen saturation and end-tidal CO2 (if available) every 15 minutes x 2, then ev antoine 30 minutes x 2, then every 1 hour x 1 after each naloxone dose. Consider transfer to ICU if patient respiratory parameters have not improved after 4 naloxone doses. For ordered IV doses 0.1-2mg give IVP. Give each 0.4mg over 15 seconds in emergency situations. For non-emergent situations further dilute in 9mL of NS to facilitate titration of response. naloxone (NARCAN) injection 0.2 mg 0.2 mg, Intravenous, EVERY 2 MIN PRN, op ioid reversal, Starting on [place] 04/06/21 at 0840, For 48 hours, Administer intravenous route when available and notify provider when administered. For unintended sed ation or respiratory depression if all o f the below criteria are met: ~ respiratory rate LESS than or EQUAL to 8. ~SaO2 less than 92% and or/end-tidal CO2 is greater than 50. ~ the patient is receiving an opioid, has unintended sedations asse ssed as RASS (-3), and is currently not on mechanical ventilation. RASS scale moderate (-3) is movement or eye opening to voice but no eye contact. Patient Monito ring Once the patient has demonstrated a response to the naloxone, continue to monitor respiratory rate, depth, oxygen saturation and end-tidal CO2 (if available) every 15 minutes x 2, then every 30 min utes x 2, then every 1 hour x 1 after ea ch naloxone dose. Consider transfer to ICU if patient respiratory parameters have not improved after 4 naloxone doses. For ordered IV doses 0.1-2mg give IVP. Give each 0.4mg over 15 seconds in emergency situations. For non-emergent situations further dilute in 9mL of NS to facilitate titration of response. naloxone (NARCAN) injection 0.2 mg 0.2 mg, Intramuscular, EVERY 2 MIN PRN, opioid reversal, Starting on [place] 04/06/21 at 0840, For 48 hours, Administer intramuscular if an intravenous route is not available and notify provider when administ ered. For unintended sedation or respira tory depression if all of the below criteria are met: ~ respiratory rate LESS than or EQUAL to 8. ~SaO2 less than 92% and or/end-tidal CO2 is greater than 50. ~ t he patient is receiving an opioid, has u nintended sedations assessed as RASS (- 3), and is currently not on mechanical ventilation. RASS scale moderate (-3) is movement or eye opening to voice but no eye contact. Patient Monitoring Once the pa tient has demonstrated a response to the naloxone, continue to monitor respiratory rate, depth, oxygen saturation and end-tidal CO2 (if available) every 15 minute s x 2, then every 30 minutes x 2, then e very 1 hour x 1 after each naloxone dose. Consider transfer to ICU if patient respiratory parameters have not improved after 4 naloxone doses. For ordered IV dose s 0.1-2mg give IVP. Give each 0.4mg over 15 seconds in emergency situations. For non-emergent situations further dilute in 9mL of NS to facilitate titration of response. naloxone (NARCAN) injection 0.4 mg 0.4 mg, Intravenous, EVERY 2 MIN PRN, op ioid reversal, Starting on [place] 04/06/21 at 0840, Administer intravenous route when available and notify provider when administered. For unintended sedation or respi ratory depression if all of the below cr iteria are met: ~ respiratory rate LESS than or EQUAL to 8. ~ SaO2 less than 92% and or/end-tidal CO2 is greater than 50. ~ the patient is receiving an opioid, garcia s unintended sedation assessed as RASS ( -4) or (-5) and patient is currently not on mechanical ventilation. RASS scale (-4) is deep sedation with no response to voice but movement or eye opening to phys ical stimulation. RASS scale (-5) is liz rousable. Patient Monitoring Once the patient has demonstrated a response to the naloxone, continue to monitor respiratory rate, depth, oxygen saturation and end- tidal CO2 (if available) every 15 minute s x 2, then every 30 minutes x 2, then every 1 hour x 1 after each naloxone dose. Consider transfer to ICU if patient respiratory parameters have not improved aft er 4 naloxone doses. For ordered IV dose s 0.1-2mg give IVP. Give each 0.4mg over 15 seconds in emergency situations. For non-emergent situations further dilute in 9mL of NS to facilitate titration of response. naloxone (NARCAN) injection 0.4 mg 0.4 mg, Intramuscular, EVERY 2 MIN PRN, opioid reversal, Starting on [place] 04/06/21 at 0840, Administer intramuscular if an intravenous route is not available and notify provider when administered. For unin tended sedation or respiratory depressio n if all of the below criteria are met: ~ respiratory rate LESS than or EQUAL to 8. ~ SaO2 less than 92% and or/end- tidal CO2 is greater than 50. ~ the patient is receiving an opioid, has unintended sed ation assessed as RASS (-4) or (-5) and patient is currently not on mechanical ventilation. RASS scale (-4) is deep sedation with no response to voice but movemen t or eye opening to physical stimulation . RASS scale (-5) is unarousable. Patient Monitoring Once the patient has demonstrated a response to the naloxone, continue to monitor respiratory rate, depth, ox ygen saturation and end-tidal CO2 (if av ailable) every 15 minutes x 2, then every 30 minutes x 2, then every 1 hour x 1 after each naloxone dose. Consider transfer to ICU if patient respiratory paramete rs have not improved after 4 naloxone do ses. For ordered IV doses 0.1-2mg give IVP. Give each 0.4mg over 15 seconds in emergency situations. For non-emergent situations further dilute in 9mL of NS to facilitate titration of response. naloxone (NARCAN) injection 0.4 mg 0.4 mg, Intravenous, EVERY 2 MIN PRN, op ioid reversal, Starting on [place] 04/06/21 at 0840, For 48 hours, Administer intravenous route when available and notify provider when administered. For unintended sed ation or respiratory depression if all o f the below criteria are met: ~ respiratory rate LESS than or EQUAL to 8. ~ SaO2 less than 92% and or/end-tidal CO2 is greater than 50. ~ the patient is receiving an opioid, has unintended sedation asse ssed as RASS (-4) or (-5) and patient is currently not on mechanical ventilation. RASS scale (-4) is deep sedation with no response to voice but movement or eye o pening to physical stimulation. RASS sca le (-5) is unarousable. Patient Monitoring Once the patient has demonstrated a response to the naloxone, continue to monitor respiratory rate, depth, oxygen satur ation and end-tidal CO2 (if available) e very 15 minutes x 2, then every 30 minutes x 2, then every 1 hour x 1 after each naloxone dose. Consider transfer to ICU if patient respiratory parameters have no t improved after 4 naloxone doses. For o rdered IV doses 0.1-2mg give IVP. Give each 0.4mg over 15 seconds in emergency situations. For non-emergent situations further dilute in 9mL of NS to facilitate titration of response. naloxone (NARCAN) injection 0.4 mg 0.4 mg, Intramuscular, EVERY 2 MIN PRN, opioid reversal, Starting on [place] 04/06/21 at 0840, For 48 hours, Administer intramuscular if an intravenous route is not available and notify provider when administ ered. For unintended sedation or respira tory depression if all of the below criteria are met: ~ respiratory rate LESS than or EQUAL to 8. ~ SaO2 less than 92% and or/end-tidal CO2 is greater than 50. ~ the patient is receiving an opioid, has unintended sedation assessed as RASS (- 4) or (-5) and patient is currently not on mechanical ventilation. RASS scale (- 4) is deep sedation with no response to voi ce but movement or eye opening to physic al stimulation. RASS scale (-5) is unarousable. Patient Monitoring Once the patient has demonstrated a response to the naloxone, continue to monitor respiratory r ate, depth, oxygen saturation and end-ti true CO2 (if available) every 15 minutes x 2, then every 30 minutes x 2, then every 1 hour x 1 after each naloxone dose. Consider transfer to ICU if patient respir atory parameters have not improved after 4 naloxone doses. For ordered IV doses 0.1-2mg give IVP. Give each 0.4mg over 15 seconds in emergency situations. For non-emergent situations further dilute in 9mL of NS to facilitate titration of response. ondansetron (ZOFRAN) injection 4 mg 4 mg, Intravenous, ONCE PRN, nausea, vom iting, Administer over 2-5 Minutes, Starting on [place] 04/06/21 at 0840, For 1 dose, Give in ENDO pre procedure prep area. Irritant. For ordered IV doses 0.1-4 mg, giv e IV Push undiluted over 2-5 minutes., Pre-procedure ondansetron (ZOFRAN) injection 4 mg(Linked Group 1) 4 mg, Intravenous, EVERY 6 HOURS PRN, na usea, vomiting, Administer over 2-5 Minutes, Starting on [place] 04/06/21 at 0840, This is Step 1 of nausea and vomiting management. If nausea not resolved in 15 minute s, go to Step 2 prochlorperazine (COMPAZ INE). Irritant. For ordered IV doses 0.1-4 mg, give IV Push undiluted over 2-5 minutes. ondansetron (ZOFRAN-ODT) ODT tab 4 mg(Linked Group 1) 4 mg, Oral, EVERY 6 HOURS PRN, nausea, v omiting, Starting on [place] 04/06/21 at 0840, This is Step 1 of nausea and vomiting management. If nausea not resolved in 15 minutes, go to Step 2 prochlorperazine (CO MPAZINE). Do not push through foil backi ng. Peel back foil and gently remove. Place on tongue immediately. Administration with liquid unnecessary With dry hands, peel back foil backing and gently remove tablet. Do not push oral disintegrating tablet through foil backing. Administer immediately on tongue and oral disintegrating tablet dissolves in seconds, then swallow with saliva. Liquid not required. prochlorperazine (COMPAZINE) injection 5 mg(Linked Group 2) 5 mg, Intravenous, EVERY 6 HOURS PRN, na usea, vomiting, Administer over 1-2 Minutes, Starting on [place] 04/06/21 at 0840, This is Step 2 of nausea and vomiting management. If nausea not resolved in 15-30 min utes, Notify provider. For ordered IV do ses 0.1-10 mg, give IV push undiluted, each 5 mg over 1 minute. prochlorperazine (COMPAZINE) tablet 5 mg(Linked Group 2) 5 mg, Oral, EVERY 6 HOURS PRN, nausea, v omiting, Starting on [place] 04/06/21 at 0840, This is Step 2 of nausea and vomiting management. If nausea not resolved in 15- 30 minutes, Notify provider. simethicone 133mg/2mL oral suspension 133 mg 133 mg, Oral, ONCE PRN, DURING COLONOSCO PY PRN, Starting on [place] 04/06/21 at 0916, For 1 dose sodium chloride (PF) 0.9% PF flush 3 mL 0902 (Given - Provider: Paula Ho RN)0903 (Given - Provider: Paula Ho RN)0908 (Given - Provider: Paula Ho RN) 3 mL, Intracatheter, EVERY 1 MIN PRN, li ne flush, other, to ensure patency or to lock dormant line, Starting on [place] 04/06/21 at 0840, Pre-procedure Linked Groups Order Group 1: ondansetron (ZOFRAN-ODT) ODT tab 4 mgJump to med 4 mg, Oral, EVERY 6 HOURS PRN, nausea, v omiting, Starting on [place] 04/06/21 at 0840
This is Step 1 of nausea and vomiting management. If nausea not resolved in 15 minutes, go to Step 2 prochlorperazine (COMPAZINE). Do not push through foil backing. Peel back foil and gently remove. Place on tongue immediately. Administration with liquid unnecessary With dry hands, peel back foil backing and gently remove tab let. Do not push oral disintegrating tablet through foil backing. Administer immediately on tongue and oral disintegrating tablet dissolves in seconds, then swallow with saliva. Liquid not required.
Or ondansetron (ZOFRAN) injection 4 mgJump to med 4 mg, Intravenous, EVERY 6 HOURS PRN, na usea, vomiting, Administer over 2-5 Minutes, Starting on [place] 04/06/21 at 0840
This is Step 1 of nausea and vomiting management. If nause a not resolved in 15 minutes, go to Step 2 prochlorperazine (COMPAZINE). Irritant. For ordered IV doses 0.1-4 mg, give IV Push undiluted over 2-5 minutes.
Group 2: prochlorperazine (COMPAZINE) injection 5 mgJump to med 5 mg, Intravenous, EVERY 6 HOURS PRN, na usea, vomiting, Administer over 1-2 Minutes, Starting on [place] 04/06/21 at 0840
This is Step 2 of nausea and vomiting management. If nausea not res olved in 15-30 minutes, Notify provider. For ordered IV doses 0.1-10 mg, give IV push undiluted, each 5 mg over 1 minute.
Or prochlorperazine (COMPAZINE) tablet 5 mgJump to med 5 mg, Oral, EVERY 6 HOURS PRN, nausea, v omiting, Starting on [place] 04/06/21 at 0840
This is Step 2 of nausea and vomiting management. If nausea not resolved in 15-30 minutes, Notify provider.
documented in this encounter Care Teams Collar Turner Operator Relationship Specialty Start Date End Date Senthil Mckeon, PCP - General 12/03/18 Zen Rousseau MD MD Family Practice 07/31/[address] [place] [id number] Ta Trimble Assigned Heart and 05/27/20 2 MD [facility] Provider [address] [place] [id number] documented as of this encounter
--- OUTSIDE RECORDS SUMMARY | 2022-04-05 08:00 | XMS_ITS | Encounter Summary ---
:1940 Author Organization [place] Address [address] [facility] [place] [address] Care Team Providers Name Role Phone Zen Rousseau MD Unavailable Senthil Mckeon MD Primary Care Provider [phone] Reason for Visit Auth/Cert Specialty Diagnoses / Procedures Referred By Contact Refer red To Contact Gastroenterology Diagnoses Screen for colon cancer Screen for colon cancer [Z12.11] Endoscopy Procedures COLONOSCOPY [address] [place] [address] Phone: Fax: Referral ID Status Reason Start Date Expiration Date Visits Requ ested Visits Authorized [id number] 1 1 Encounter Details Date Type Department Care Team Description 08/26/2019 Hospital Encounter [facility] Anna Black , Endoscopy Mackenzie MAXWELL [address] [place], [place] GASTROINTESTINAL [id number] [address] [phone] [place], [place] [address] (Wo rk) Social History Tobacco Use Types [...] on file documented as of this encounter Last Filed Vital Signs Vital Sign Reading Time Taken Comments Blood Pressure 142/67 08/26/2019 9:00 AM [facility] Pulse 74 08/26/2019 9:00 AM [facility] Temperature - - Respiratory Rate 20 08/26/2019 9:00 AM [facility] Oxygen Saturation 96% 08/26/2019 9:00 AM [facility] Inhaled Oxygen Concentration - - Weight - - Height - - Body Mass Index - - documented in this encounter Discharge Instructions Discharge InstructionsZaira Henao RN - 08/26/2019 8:42 AM [facility] Images from the original note were not [...] the chance of preventing its spread. ?? [id number] [employer], [address] [place] [address], [place] [address]. All rights reserved. This information is not intended as a substitute for professional medical care. Always follow your healthcare professional's instructions. [facility] documented in this encounter Medications at Time of [...] artery disease needed for chest pain involving ugashik coronary artery of ugashik heart without angina pectoris pantoprazole (PROTONIX) Take 40 mg by mouth 0 40 MG enteric coated every 48 hours tablet VITAMIN D, Take 1,000 Units by 0 CHOLECALCIFEROL, PO mouth daily Coenzyme Q10 (COQ-10) Take by mouth daily 0 04/05/2021 100 MG CAPS furosemide (LASIX) 20 Take 20 mg by mouth 0 10/25/2020 MG tablet as needed (Use as Directed for edema) losartan (COZAAR) 50 MG Take 1 tablet (50 mg) 90 tablet 0 1 08/25/2018 09/28/2019 tabletIndications: by mouth daily Essential hypertension MAGNESIUM PO Take 250 mg by mouth 0 At Bedtime metoprolol tartrate Take 1 tablet (25 mg) 180 tablet 0 06/2402/23/2020 (LOPRESSOR) 25 MG by mouth 2 times tabletIndications: daily Essential hypertension rosuvastatin (CRESTOR) Take 1 tablet (20 mg) 90 tablet 0 10/25/2020 20 MG by mouth daily tabletIndications: Mixed hyperlipidemia, Coronary artery disease involving ugashik coronary artery of ugashik heart without angina pectoris documented as of this encounter H&P Notes Anna Black MD - 08/26/2019 7:25 AM CST Pre-Endoscopy History and Physical Donaldo Bautista Date of : 1940 Age: [age] year old Date of Procedure: 08/26/2019 Primary care provider: Senthil Mckeon Type of Endoscopy: Colonoscopy with possible biopsy, possible polypectomy Reason for Procedure: screen Type of Anesthesia Anticipated: Conscious Sedation HPI: Donaldo is a 79 year old male who will be undergoing the above procedure. A history and physical has been performed. The patient's medications and allergies have been reviewed. The risks and benefits of the procedure and the sedation options and risks were discussed with thepatient. All questions were answered and informed consent was obtained. He denies a personal or family history of anesthesia complications or bleeding disorders. Patient Active Problem List Diagnosis ??? High cholesterol ??? Hypertension ??? CAD (coronary artery disease) ??? Past history of myocardial infarction ??? Aortic valve disorder ??? Stented coronary artery ??? Mixed hyperlipidemia ??? SOB (shortness of breath) Past Medical History: Diagnosis Date ??? CAD [...] partial colectomy 1 foot ??? COLONOSCOPY ??? CORONARY ANGIOGRAPHY ADULT ORDER 06/2010 INGRID to OM2, RCA mild/mod disease Social History Tobacco Use ??? Smoking status: Former Smoker ??? Smokeless tobacco: Never Used ??? Tobacco comment: quit about 30 years ago Substance Use Topics ??? Alcohol use: Yes Comment: rare Family History Problem Relation Age of Onset ??? Diabetes Mother ??? Hypertension Mother ??? Asthma Father ??? Myocardial Infarction Brother ??? Cancer Brother ??? Myocardial Infarction Sister ??? Myocardial Infarction Brother ??? Myocardial Infarction Brother ??? Myocardial Infarction Brother ??? Myocardial Infarction Brother ??? Myocardial Infarction Sister Prior to Admission medications Medication Sig Start Date End Date Taking? Authorizing Provider albuterol (2.5 MG/3ML) 0.083% nebulizer solution Take 1 vial by nebulization every 6 hours as neededfor shortness of breath / dyspnea or wheezing Reported, Patient aspirin 81 MG tablet Take 81 mg by mouth daily Reported, Patient budesonide-formoterol (SYMBICORT) 80-4.5 MCG/ACT inhaler Inhale 2 puffs into the lungs as needed (Only takes when need for cough-NOT Scheduled like prescribed (averages 3x/wk)) Reported, Patient Coenzyme Q10 (COQ-10) 100 MG CAPS Take by mouth daily Reported, Patient Cyanocobalamin (VITAMIN B 12 PO) Take 1,000 mcg by mouth daily Reported, Patient furosemide (LASIX) 20 MG tablet Take 20 mg by mouth as needed (Use as Directed for edema) Reported, Patient losartan (COZAAR) 50 MG tablet Take 1 tablet (50 mg) by mouth daily 06/25/19 Ta Trimble MD MAGNESIUM PO Take 250 mg by mouth At Bedtime Reported, Patient metoprolol tartrate (LOPRESSOR) 25 MG tablet Take 1 tablet (25 mg) by mouth 2 times daily 06/24/19 Mali Dowd APRN CNP nitroglycerin (NITROSTAT) 0.[address] 1 tablet (0.4 mg) under the tongue every 5 minutes as needed for chest pain 10/04/15 Abhijit Castañeda MD pantoprazole (PROTONIX) 40 MG enteric coated tablet Take 40 mg by mouth every 48 hours Reported, Patient rosuvastatin (CRESTOR) 20 MG tablet Take 1 tablet (20 mg) by mouth daily 11/26/16 Abhijit Castañeda MD VITAMIN D, CHOLECALCIFEROL, PO Take 1,000 Units by mouth daily Unknown, Entered By History Allergies Allergen Reactions ??? Fish Oil Other (See Comments) Bloody noses ??? Penicillins Itching REVIEW OF SYSTEMS: 5 point ROS negative except as noted above in HPI, including Gen., Resp., CV, GI & system review. PHYSICAL EXAM: There were no vitals taken for this visit. Estimated body mass index is 35.19 kg/m?? as calculated from the following: Height as of 12/03/18: 1.676 m (5' 6). Weight as of 12/03/18: 98.9 kg (218 lb). GENERAL APPEARANCE: alert, and oriented MENTAL STATUS: alert AIRWAY EXAM: Mallampatti Class I (visualization of the soft palate, fauces, uvula, anterior and posterior pillars) RESP: lungs clear to auscultation - no rales, rhonchi or wheezes CV: regular rates and rhythm DIAGNOSTICS: Not indicated IMPRESSION ASA Class 2 - Mild systemic disease PLAN: Plan for Colonoscopy with possible biopsy, possible polypectomy. We discussed the risks, benefits and alternatives and the patient wished to proceed. The above has been forwarded to the consulting provider. Signed Electronically by: Anna Black MD August 26, 2019 [facility] documented in this encounter Miscellaneous Notes Result Encounter Note - Anna Black MD - 08/26/2019 9:13 AM CST Pt informed of results. No redo. [facility] documented in this encounter Plan of Treatment Not on filedocumented as of this encounter Procedures Procedure Name Priority Date/Time Associated Diagnosis Comme nts SURGICAL PATHOLOGY Routine 08/26/2019 8:20 AM Res ults for this EXAM [facility] procedure are i n the results section. COLONOSCOPY, 08/26/2019 7:55 AM History of colon FLEXIBLE, WITH [facility] polyps LESION REMOVAL USING SNARE [facility] sent by [facility] COLONOSCOPY, WITH POLYPECTOMY AND 08/26/2019 7:5 5 AM [facility] History of colon polyps BIOPSY Special Needs Ps sent by [facility] COLONOSCOPY Routine 08/26/2019 7:42 AM [facility] Resul ts for this procedure are in the results section . documented in this encounter Results Surgical pathology exam (08/26/2019 8:20 AM [facility]) Component Value Ref Test Analysis Performed At [facility] Range Method Time Signature Copath Report Patient Name: DONALDO BAUTISTA MR#: [id number] Specimen #: [id number] Collected: 08/26/2019 Received: 08/26/2019 Reported: 08/27/2019 13:35 Ordering Phy(s): ANNA BLACK For improved result formatting, select 'View Enhanced Report Format' under Linked Documents section. SPECIMEN(S): Colon polyps x3, transverse FINAL DIAGNOSIS: Colon, transverse, polypectomies (3): - Tubular adenomas (3). - Negative for high-grade dysplasia and malignancy. Electronically signed out by: Gunnar Valenzuela M.D. CLINICAL HISTORY: Screening for colon cancer. GROSS: The specimen is received in formalin labeled with the patien t's name, identifying information and designated transverse colon polyps x3. ??It consists of three gamez hanny ypoid tissue fragments, ranging from 0.2-0.3 cm. Submitted entirely in one block. (Dictated by: BISMARK Barahona 08/26/2019 10:39 AM) MICROSCOPIC: Microscopic examination was performed. The technical component of this testing was completed at the [facility], with the professional compo nent performed at the [facility], [address] [place] [address] ??[phone] ([phone]) CPT Codes: A: 31609-TR6 COLLECTION SITE: Client: [facility] Location: [facility] (R) Specimen (Source) Anatomical Collection Method Collection Time Re ceived Time Location / / Volume Laterality Polyp LARGE INTESTINE 08/26/2019 8:20 AM (morphologic PART / Unknown [facility] abnormality) Anna Black MD [facility] Performing Organization Address City/State/ZIP Code Phon e Number [facility] COLONOSCOPY (08/26/2019 7:42 AM [facility]) [facility] Method Time Signature COLONOSCOPY [facility] RAD IOLOGY RESULTS Patient Name: Donaldo Bautista ? Procedure Date: 08/26/2019 7:42 AM ? Accou nt Number: [id number] Date of : 1940 ?Admit Type: Out patient Age: 79 ? Gender: Male Attending MD: Anna fry MD ?? Total Sedation Time: 15_minutes continuous bedside 1:1 Instrument Name: 217 - Pediatric Colonoscope Procedure: ?Colonoscopy Indications: ?High ri sk colon cancer surveillance: Personal ?history of colonic po lyps Providers: ?Anna Black MD ([facility]) Referring MD: ? Senthil Mckeon (Refer ring ) Medicines: ?Midazolam 2 mg IV, Fentanyl 100 micrograms IV Complications: ?No immediate complications. Procedure: [...] ?proposed procedure were verified by the physician ?in the procedure room. Mental Status Examination: ?alert and oriented. Airway Examination: normal ?oropharyngeal airway and neck mobility. Respiratory ?Examination: clear to auscultation. CV Examination: ?normal. Prophylactic Antibiotics: The patient does ?not require prophylactic antibiotics. Prior ?Anticoagulants: The patient has taken no previous ?anticoagulant or antiplatelet agents. ASA Grade ?Assessment: II - A patient with mild systemic ?disease. After reviewing the risks and benefits, ?the patient was deemed in satisfactory condition to ?undergo the procedure. The anesthesia plan was to ?use moderate sedation / analgesia (conscious ?sedation). Immediately prior to administration of ?medications, the patient was re-assessed for ?adequacy to receive sedatives. The heart rate, ?respiratory rate, oxygen saturations, blood ?pressure, adequacy of pulmonary ventilation, and ?response to care were monitored throughout the ?procedure. The physical status of the patient was ?re-assessed after the procedure. ?After obtaining informed consent, the colonoscope ?was passed under direct vision. Throughout the ?procedure, the patient's blood pressure, pulse, and ?oxygen saturations were monitored continuously. The ?Olympus Pediatric Colonoscope, Model # [id number]-H190DL, ?[place] # 217, SN # [id number] was introduced through ?the anus and advanced to the ileocolonic ?anastomosis. The colonoscopy was performed without ?difficulty. The patient tolerated the procedure ?well. The quality of the bowel preparation was good. ? Findings: ? The perianal and digital rectal examinations were nor mal. ? Three sessile polyps were found in the transverse colon. The polyps were ? 3 to 5 mm in size. These polyps were removed with a c old snare. ? Resection and retrieval were complete. Verification o f patient ? identification for the specimen was done. Estimated b lood loss was ? minimal. ? The exam was otherwise without abnormality on d irect and retroflexion ? views. ? Impression: ? - Three 3 to 5 mm polyps in the transverse colon, ?removed with a cold snare. Resected and retrieved. ?- The examination was otherwise normal on direct ?and retroflexion view s. Recommendation: ? - Await pathology results. ?- No repeat colonosco py. ? Procedure Code(s): ? --- Professional --- ? 24302, Colonoscopy, flexible; with removal of tumor (s), polyp(s), or ? other lesion(s) by snare technique Diagnosis Code(s): ? --- Professional --- ? D12.3, Benign neoplasm of transverse colo n (hepatic flexure or splenic ? flexure) CPT copyright 2018 [employer]. All rights reserved. The codes documented in this report are prelimin nav and upon chief cloth finishing range operator review may be revised to meet current compliance requirements. Electronically signed by Anna Black MD Anna Black MD 08/26/2019 8:30:03 AM I was physically present for the entire viewing portion of t he exam. Anna Black MD Number of Addenda: 0 Note Initiated On: 08/26/2019 7:42 AM MRN: ?[id number] Procedure Date: ? 08/26/2019 7:42:29 AM Scope Withdrawal Time: 0 hours 8 minutes 26 seconds Total Procedure Duration: 0 hours 15 minutes 20 seconds Estimated Blood Loss: ? Scope In: 8:09:47 AM Scope Out: 8:25:07 AM Specimen (Source) Anatomical Collection Method Collection Time Re ceived Time Location / / Volume Laterality 08/26/2019 7:42 AM [facility] Senthil Mckeon MD PROCEDURES Performing Organization Address City/State/ZIP Code Phon e Number RADIOLOGY RESULTS documented in this encounter Visit Diagnoses Not on filedocumented in this encounter Administered Medications Inactive Administered Medications - up to 3 most recent administrations Medication Order MAR Action Action Date Dose Rate Site fentaNYL (PF) (SUBLIMAZE) Given 08/26/2019 8:12 AM [facility] 50 mcg injection PRN, Administer over 3-5 Minutes, Starting on Sat08/26/19 at 0807, Intra-procedure Given 08/26/2019 8:07 AM [facility] 50 mcg lidocaine (LMX4) kit Topical, EVERY 1 HOUR PRN, pain, with VA D insertion or accessing implanted port., Starting on Sat08/26/19 at 0751, Do NOT give if patient has a history of allergy to any local anesthetic or any adilene prod uct. Apply at least 30 minutes prior to VAD insertion or port access. In divided dos es as needed for size of site for insertion with MAX Dose: 2.5 g (?? of 5 g tube), Pre-procedure lidocaine 1 % 0.1-1 mL 0.1-1 mL, Other, EVERY 1 HOUR PRN, mild pain with VAD insertion., Starting on Sat08/26/19 at 0751, Do NOT give if patient has a history of allergy to any local anesthetic or any adilene product. MAX dose 1 mL subcu taneous OR intradermal in divided doses as needed for VAD insertion., Pre-proced ure midazolam (VERSED) injection Given 08/26/2019 8:12 AM [facility] 1 mg Administer over 2 Minutes, PRN, Starting on Sat08/26/19 at 0807, Intra-procedure Given 08/26/2019 8:07 AM [facility] 1 mg ondansetron (ZOFRAN) injection 4 mg 4 mg, Intravenous, ONCE PRN, nausea, vomiting, Adminis ter over 2-5 Minutes, Starting on Sat08/26/19 at 0751, For 1 d ose, Give in ENDO pre procedure prep area. Irritant. For ordered IV doses 0.1-4 mg, give IV Push undiluted over 2-5 minutes., Pre-procedure ondansetron (ZOFRAN) injection 4 mg 4 mg, Intravenous, EVERY 6 HOURS PRN, nausea, vomiting , Administer over 2-5 Minutes, Starting on Sat08/26/19 at 0842, This is Step 1 of nausea and vomiting management. If nausea not resolved in 15 minutes, go t o Step 2 prochlorperazine (COMPAZINE). Irritant. For ordered IV do ses 0.1-4 mg, give IV Push undiluted over 2-5 minutes., Post-procedure ondansetron (ZOFRAN-ODT) ODT tab 4 mg 4 mg, Oral, EVERY 6 HOURS PRN, nausea, v omiting, Starting on Sat08/26/19 at 0842, This is Step 1 of nausea and [...] then swallow with saliva. Liquid not required ., Post-procedure sodium chloride (PF) 0.9% PF flush 3 mL 3 mL, Intracatheter, EVERY 1 MIN PRN, li ne flush, for peripheral IV flush post IV meds, Starting on Sat08/26/19 at 0751, Pre-procedure sodium chloride (PF) 0.9% PF flush 3 mL 3 mL, Intracatheter, EVERY 8 HOURS, Firs t dose on Sat08/26/19 at 0800, And Q1H PRN, to lock peripheral IV dormant line., Pre-procedure sodium chloride (PF) 0.9% PF flush 3 mL 3 mL, Intravenous, EVERY 1 MIN PRN, line flush, after medication administration, Starting on Sat08/26/19 at 0751, For peripheral IV flu sh post IV meds, Pre-procedure documented in this encounter Active and Recently Administered Medications Times are shown in [facility]. Scheduled Medication Order 08/24/2019 08/25/2019 08/26/2019 0.9% sodium chloride BOLUS 0800 (Canceled Entry - Provider: Orders Generic Provider - Comment: Automatically canceled at discontinue of medication order) Intravenous, 500 mL, ONCE, at 500 mL/hr, Administer over 1 Hours, Sat08/26/19 at 0800, For 1 dose, ~ For hypotension hypotensive (Systolic Blood Pressure less than 100 mmHg) prior to the procedure. Imme diately recheck Blood Pressure and if Sy stolic Blood Pressure still below 100 mmHg, give IV bolus. ~ For nausea/vomiting, give IV bolus. Notify Provider if IV bolus given., Pre-procedure sodium chloride (PF) 0.9% PF flush 3 mL 0800 (Canceled Entry - Provider: Orders Generic Provider - Comment: Automatically canceled at discontinue of medication order) 3 mL, Intracatheter, EVERY 8 HOURS, Firs t dose on Sat08/26/19 at 0800, And Q1H PRN, to lock peripheral IV dormant line., Pre-procedure PRN Medication Order 08/24/2019 08/25/2019 08/26/2019 fentaNYL (PF) (SUBLIMAZE) injection 0807 (Given - Provider: Anna Balck MD)0812 (Given - Provider: Anna Black MD - Comment: assisting with collection of specimens, cleaning and disinfecting of equipment and scopes, exam room prep and clean-up including the documentation Administer over 3-5 Minutes, PRN, Starting Sat08/26/19 at 0807, Intra-procedure of cleaning and disinfectio n processes) flumazenil (ROMAZICON) injection 0.2 mg 0.2 mg, Intravenous, EVERY 1 MIN PRN, be nzodiazepine reversal, over sedation, Administer over 1 Minutes, Starting Sat08/26/19 at 0842, For 12 hours, Give over 15 seconds. If inadequate response after 45 seconds, may repeat up to a MAX total d ose of 1 mg. Continue monitoring until discharge criteria are met for a minimum of 2 hours Irritant. For ordered IV doses 0.1-1 mg, give IV Push undiluted. Administer each 0.2mg over 15 seconds., Post-procedure lidocaine (LMX4) kit Topical, EVERY 1 HOUR PRN, pain, with VA D insertion or accessing implanted port., Starting Sat08/26/19 at 0751, Do NOT give if patient has a history of allergy to any local anesthetic or any adilene pro duct. Apply at least 30 minutes prior to VAD insertion or port access. In divided doses as needed for size of site for insertion with MAX Dose: 2.5 g (?? of 5 g tube), Pre-procedure lidocaine 1 % 0.1-1 mL 0.1-1 mL, Other, EVERY 1 HOUR PRN, mild pain with VAD insertion., Starting Sat08/26/19 at 0751, Do NOT give if patient has a history of allergy to any local anesthetic or any adilene product. MAX dose 1 mL subcutaneous OR intradermal in divid ed doses as needed for VAD insertion., Pre-procedure May continue current IV fluid if patient has IV fluids infusing until discharge. CONTINUOUS PRN, Starting Sat08/26/19 at 0842, Until Sat08/26/19 at 1113, Post-procedure midazolam (VERSED) injection 080 7 (Given - Provider: Anna Black MD)0812 (Given - Provider: Anna Black MD - Comment: VORB) Administer over 2 Minutes, PRN, Starting Sat08/26/19 at 0807, In tra-procedure naloxone (NARCAN) injection 0.1-0.4 mg 0.1-0.4 mg, Intravenous, EVERY 2 MIN PRN , opioid reversal, Starting Sat08/26/19 at 0842, For 24 hours, For apnea or imminent respiratory arrest: give 0.4 mg IV undiluted Q 2 minutes PRN until desired de gree of reversal is obtained, stop opioi d and notify provider. Continue monitoring until discharge criteria are met for a minimum of 2 hours. For severe sedation, decrease in respiratory depth, quality or Respiratory Rate less than 8: give 0. 1 mg IV Q 2 minutes x 3 doses, stop opioid and notify provider. Try to minimize reversal of analgesia especially in end-of-life patients. Continue monitoring unti l discharge criteria are met for a minim um of 2 hours For ordered IV doses 0.1- 2mg give IVP. Give each 0.4mg over 15 seconds in emergency situations. For non- emergent situations further dilute in 9mL of NS to facilitate titration of response., Post-procedure ondansetron (ZOFRAN) injection 4 mg 4 mg, Intravenous, ONCE PRN, nausea, vom iting, Administer over 2-5 Minutes, Starting Sat08/26/19 at 0751, For 1 dose, Give in ENDO pre procedure prep area. Irritant. For ordered IV doses 0.1-4 mg, give IV Push undiluted over 2-5 minutes., Pre-procedure ondansetron (ZOFRAN) injection 4 mg(Linked Group 1) 4 mg, Intravenous, EVERY 6 HOURS PRN, na usea, vomiting, Administer over 2-5 Minutes, Starting Sat08/26/19 at 0842, This is Step 1 of nausea and vomiting management. If nausea not resolved in 15 minutes, go to Step 2 prochlorperazine (COMPAZIN E). Irritant. For ordered IV doses 0.1-4 mg, give IV Push undiluted over 2-5 minutes., Post-procedure ondansetron (ZOFRAN-ODT) ODT tab 4 mg(Linked Group 1) 4 mg, Oral, EVERY 6 HOURS PRN, nausea, v omiting, Starting Sat08/26/19 at 0842, This is Step 1 of nausea and vomiting management. If nausea not resolved in 15 minutes, go to Step 2 prochlorperazine (COMP AZINE). Do not push through foil backing . Peel back foil and gently remove. Place on tongue immediately. Administration with liquid unnecessary With dry hands, peel back foil backing and gently remove t ablet. Do not push oral disintegrating t ablet through foil backing. Administer immediately on tongue and oral disintegrating tablet dissolves in seconds, then swallow with saliva. Liquid not required., Post-procedure sodium chloride (PF) 0.9% PF flush 3 mL 3 mL, Intracatheter, EVERY 1 MIN PRN, li ne flush, for peripheral IV flush post IV meds, Starting Sat08/26/19 at 0751, Pre-procedure sodium chloride (PF) 0.9% PF flush 3 mL 3 mL, Intravenous, EVERY 1 MIN PRN, line flush, after medication administration, Starting Sat08/26/19 at 0751, For peripheral IV flush post IV meds, Pre-procedure sodium chloride (PF) 0.9% PF flush 3 mL 3 mL, Intravenous, EVERY 1 MIN PRN, line flush, after medication administration. For peripheral IV flush post IV meds, Starting Sat08/26/19 at 0842, Post-procedure Linked Groups Order Group 1: ondansetron (ZOFRAN-ODT) ODT tab 4 mgJump to med 4 mg, Oral, EVERY 6 HOURS PRN, nausea, v omiting, Starting Sat08/26/19 at 0842
This is Step 1 of nausea and vomiting management. If nausea not resolved in 15 minutes, go to St ep 2 prochlorperazine (COMPAZINE). Do no t push through foil backing. Peel back foil and gently remove. Place on tongue immediately. Administration with liquid unnecessary With dry hands, peel b ack foil backing and gently remove table t. Do not push oral disintegrating tablet through foil backing. Administer immediately on tongue and oral disintegrating tablet dissolves in seconds, then swallow with saliva. Liquid not required.
Po st-procedure Or ondansetron (ZOFRAN) injection 4 mgJump to med 4 mg, Intravenous, EVERY 6 HOURS PRN, na usea, vomiting, Administer over 2-5 Minutes, Starting 08/26/19 at 0842
This is Step 1 of nausea and vomiting management. If nausea not resolved in 15 minutes, go to Step 2 prochlorperazine (COMPAZINE). Irritant. For ordered IV doses 0.1-4 mg, give IV Push undiluted over 2-5 minutes.
Post-procedure documented in this encounter Care Teams Lead Driver Relationship Specialty Start Date End Date Senthil Mckeon MD PCP - General 12/03/18 09/10/21 Zen Rousseau MD MD Family Practice 07/31/[address] [address] documented as of this encounter
--- OUTSIDE RECORDS SUMMARY | 2022-04-05 08:00 | XMS_ITS | Encounter Summary ---
:1940 Author Organization [place] Address [address] [facility] [place] [address] Care Team Providers Name Role Phone Zen Rousseau MD Unavailable Senthil Mckeon MD Primary Care Provider [phone] Ta Trimble MD Unavailable [phone] Reason for Referral CV Testing (Routine) - Closed Specialty Diagnoses / Procedures Referred By Contact Refer red To Contact Cardiology Diagnoses Nonrheumatic aortic valve stenosis Ta Trimble, Rh Cv Cardiac Svc Rscc Procedures Echocardiogram Complete HC TTE W/DOPPLER, COMPLETE HC ECHO COMPLETE W DOPPLER W CONTRAST HC ECHO COMPLETE W DOPPLER W/O CONTRAST HC IV PUSH SINGLE, INITIAL SUBSTANCE HC [place] GUIDE [place]ICARDI[place] [id number] Instagram C INJECTION, PERFLUTREN LIPI D MICROSPHERES, PER ML HC STATISTIC IV PUSH SINGLE INITIAL SUBSTANCE [address] [facility] [address] [place], [place] [address] [place] [address] Phone: Fax: Referral ID Status Reason Start Date Expiration Date Visits Requ ested Visits Authorized [id number] Closed 10/20/2019 10/21/2020 1 1 Reason for Visit CV Testing (Routine) - Closed Specialty Diagnoses / Procedures Referred By Contact Refer red To Contact Cardiology Diagnoses Nonrheumatic aortic valve stenosis Ta Trimble, Rh Cv Cardiac Svc Rscc Procedures Echocardiogram Complete HC TTE W/DOPPLER, COMPLETE HC ECHO COMPLETE W DOPPLER W CONTRAST HC ECHO COMPLETE W DOPPLER W/O CONTRAST HC IV PUSH SINGLE, INITIAL SUBSTANCE HC US GUIDE FOR [place]ICARDI[place]ENT[place] [id number] [facility] C INJECTION, PERFLUTREN LIPI D MICROSPHERES, PER ML HC STATISTIC IV PUSH SINGLE INITIAL SUBSTANCE [address] [facility] [address] [place], [place] [address] [place] [address] Phone: Fax: Referral ID Status Reason Start Date Expiration Date Visits Requ ested Visits Authorized [id number] Closed 10/20/2019 10/21/2020 1 1 Encounter Details Date Type Department Care Team Description [facility] [employer] MD [facility] valve stenosis Heart [facility] [address] [facility] [id number] [place] [address] [address] [place], [place] [address] Social History Tobacco Use Types Packs/Day [...] artery disease needed for chest pain involving [place] coronary artery of [place] heart without angina pectoris pantoprazole (PROTONIX) Take 40 mg by mouth 0 40 MG enteric coated every 48 hours tablet VITAMIN D, Take 1,000 Units by 0 CHOLECALCIFEROL, PO mouth daily atorvastatin (LIPITOR) 0 10/21/2020 20 MG tablet Coenzyme Q10 (COQ-10) Take by mouth daily 0 04/05/2021 100 MG CAPS furosemide (LASIX) 20 Take 20 mg by mouth 0 10/25/2020 MG tablet as needed (Use as Directed for edema) losartan (COZAAR) 50 MG Take 1 tablet (50 mg) 90 tablet 0 0 10/07/2020 10/25/2020 tabletIndications: by mouth daily Essential hypertension MAGNESIUM PO Take 250 mg by mouth 0 At Bedtime metoprolol tartrate Take 1 tablet (25 mg) 180 tablet 0 08/1510/25/2020 (LOPRESSOR) 25 MG by mouth 2 times tabletIndications: daily Essential hypertension rosuvastatin (CRESTOR) Take 1 tablet (20 mg) 90 tablet 0 10/25/2020 20 MG by mouth daily tabletIndications: Mixed hyperlipidemia, Coronary artery disease involving [place] coronary artery of [place] heart without angina pectoris documented as of this encounter Plan of Treatment Not on filedocumented as of this encounter Procedures Procedure Name Priority Date/Time Associated Diagnosis Comme nts ECHO COMPLETE Routine 10/21/2020 2:49 PM Nonrheumatic aortic R esults for this CDT valve stenosis procedure are in the results section. documented in this encounter Results ECHO COMPLETE (10/21/2020 2:49 PM CDT) Anatomical Region Laterality Modality Echocardiography Specimen (Source) Anatomical Collection Method Collection Time Re ceived Time Location / / Volume Laterality 10/21/2020 2:10 PM CDT Narrative 10/21/2020 4:54 PM CDT [id number]^JEROME^TA^[facility] Echocardiography Laboratory [address] [place] [address] Name: DONALDO BAUTISTA : 1940 Study Date: 10/21/2020 02:10 PM Age: 80 yrs Gender: Male Patient Location: [facility] Reason For Study: Nonrheumatic aortic va lve stenosis Ordering Physician: TA TRIMBLE Referring Physician: TA TRIMBLE ORGE Performed By: Darcy Workman BSA: 2.0 m2 Height: 66 in Weight: 210 lb BP: 145/78 mmHg __ Procedure Complete Echo Adult. __ Interpretation Summary There is borderline concentric left vent ricular hypertrophy. The visual ejection fraction is estimate d at 60-65%. The right ventricle is normal in structu re, function and size. Moderate valvular aortic stenosis. Compared to previous study the degree of aortic stenosis has progressed. The study was technically adequate. __ Left Ventricle The left ventricle is normal in structur e, function and size. There is borderline concentric left ventricular h ypertrophy. Left ventricular systolic function is normal. The visual ejection fraction is estimated at 60-65%. Grade I or early diastolic dysfunction. No reg ional wall motion abnormalities noted. Right Ventricle The right ventricle is normal in structu re, function and size. Atria Normal left atrial size. Right atrial si ze is normal. There is no color Doppler evidence of an atrial shunt. Mitral Valve The mitral valve is normal in structure and function. There is trace mitral regurgitation. Tricuspid Valve The tricuspid valve is normal in structu re and function. There is trace tricuspid regurgitation. Aortic Valve No aortic regurgitation is present. The mean AoV pressure gradient is 21.7 mmHg. The calculated aortic valve are is 1.4 cm^2. Moderate valvular aortic stenosis. Pulmonic Valve The pulmonic valve is not well seen, but is grossly normal. Vessels The aortic root is normal size. The asce nding aorta is Borderline dilated. The inferior vena cava was normal in size wi th preserved respiratory variability. Pericardium The pericardium appears moderately thick ened. __ MMode/2D Measurements & Calculations IVSd: 1.1 cm LVIDd: 5.5 cm LVIDs: 3.7 cm LVPWd: 1.1 cm FS: 31.6 % LV mass(C)d: 235.5 grams LV mass(C)dI: 115.3 grams/m2 Ao root diam: 3.3 cm asc Aorta Diam: 3.7 cm LVOT diam: 2.4 cm LVOT area: 4.4 cm2 LA Volume (BP): 39.9 ml LA Volume Index (BP): 19.6 ml/m2 RWT: 0.39 Doppler Measurements & Calculations MV E max damaso: 57.9 cm/sec MV A max damaso: 78.3 cm/sec MV E/A: 0.74 MV dec slope: 238.5 cm/sec2 MV dec time: 0.24 sec Ao V2 max: 308.1 cm/sec Ao max P.0 mmHg Ao V2 mean: 220.4 cm/sec Ao mean P.7 mmHg Ao V2 VTI: 70.6 cm MARTHA(I,D): 1.4 cm2 MARTHA(V,D): 1.4 cm2 LV V1 max P.7 mmHg LV V1 max: 96.3 cm/sec LV V1 VTI: 22.3 cm SV(LVOT): 96.9 ml SI(LVOT): 47.5 ml/m2 PA acc time: 0.10 sec AV Damaso Ratio (DI): 0.31 MARTHA Index (cm2/m2): 0.67 E/E' av.9 Lateral E/e': 14.9 Medial E/e': 16.9 __ Report approved by: Morgan Polo 10/21/2020 04:54 PM Procedure Note Kenneth Farr MD - 10/21/2020Fo rmatting of this note might be different from the original. [id number]^JEROME^TA^[facility] Echocardiography Laboratory [address] [place] [id number] Name: DONALDO BAUTISTA : 1940 Study Date: 10/21/2020 02:10 PM Age: 80 yrs Gender: Male Patient Location: [facility] Reason For Study: Nonrheumatic aortic va lve stenosis Ordering Physician: TA TRIMBLE Referring Physician: TA TRIMBLE ORGE Performed By: Darcy Workman BSA: 2.0 m2 Height: 66 in Weight: 210 lb BP: 145/78 mmHg __ Procedure Complete Echo Adult. __ Interpretation Summary There is borderline concentric left vent ricular hypertrophy. The visual ejection fraction is estimate d at 60-65%. The right ventricle is normal in structu re, function and size. Moderate valvular aortic stenosis. Compared to previous study the degree of aortic stenosis has progressed. The study was technically adequate. __ Left Ventricle The left ventricle is normal in structur e, function and size. There is borderline concentric left ventricular h ypertrophy. Left ventricular systolic function is normal. The visual ejection fraction is estimated at 60-65%. Grade I or early diastolic dysfunction. No reg ional wall motion abnormalities noted. Right Ventricle The right ventricle is normal in structu re, function and size. Atria Normal left atrial size. Right atrial si ze is normal. There is no color Doppler evidence of an atrial shunt. Mitral Valve The mitral valve is normal in structure and function. There is trace mitral regurgitation. Tricuspid Valve The tricuspid valve is normal in structu re and function. There is trace tricuspid regurgitation. Aortic Valve No aortic regurgitation is present. The mean AoV pressure gradient is 21.7 mmHg. The calculated aortic valve are is 1.4 cm^2. Moderate valvular aortic stenosis. Pulmonic Valve The pulmonic valve is not well seen, but is grossly normal. Vessels The aortic root is normal size. The asce nding aorta is Borderline dilated. The inferior vena cava was normal in size wi th preserved respiratory variability. Pericardium The pericardium appears moderately thick ened. __ MMode/2D Measurements & Calculations IVSd: 1.1 cm LVIDd: 5.5 cm LVIDs: 3.7 cm LVPWd: 1.1 cm FS: 31.6 % LV mass(C)d: 235.5 grams LV mass(C)dI: 115.3 grams/m2 Ao root diam: 3.3 cm asc Aorta Diam: 3.7 cm LVOT diam: 2.4 cm LVOT area: 4.4 cm2 LA Volume (BP): 39.9 ml LA Volume Index (BP): 19.6 ml/m2 RWT: 0.39 Doppler Measurements & Calculations MV E max damaso: 57.9 cm/sec MV A max damaso: 78.3 cm/sec MV E/A: 0.74 MV dec slope: 238.5 cm/sec2 MV dec time: 0.24 sec Ao V2 max: 308.1 cm/sec Ao max P.0 mmHg Ao V2 mean: 220.4 cm/sec Ao mean P.7 mmHg Ao V2 VTI: 70.6 cm MARTHA(I,D): 1.4 cm2 MARTHA(V,D): 1.4 cm2 LV V1 max P.7 mmHg LV V1 max: 96.3 cm/sec LV V1 VTI: 22.3 cm SV(LVOT): 96.9 ml SI(LVOT): 47.5 ml/m2 PA acc time: 0.10 sec AV Damaso Ratio (DI): 0.31 MARTHA Index (cm2/m2): 0.67 E/E' av.9 Lateral E/e': 14.9 Medial E/e': 16.9 __ Report approved by: Morgan Polo 10/21/2020 04:54 PM Ta Trimble MD CV ECHO ORDERABLES documented in this encounter Visit Diagnoses Diagnosis Nonrheumatic aortic valve stenosis Aortic valve disorders documented in this encounter Care Teams Consumer Loan Processor Relationship Specialty Start Date End Date Senthil Mckeon, PCP - General 12/03/18 Zen Rousseau MD MD Family Practice 07/31/[address] [address] Ta Trimble Assigned Heart and 05/27/20 2 MD [facility] Vascular Provider [address] [place] [address] documented as of this encounter
--- OUTSIDE RECORDS SUMMARY | 2022-04-05 08:00 | XMS_ITS | Encounter Summary ---
:1940 Author Organization [place] Address [address] [facility] [place] [address] Care Team Providers Name Role Phone Zen Rousseau MD Unavailable Senthil Mckeon MD Primary Care Provider [phone] Encounter Details Date Type Department Care Team Description 09/16/2019 Travel Social History Tobacco Use Types Packs/Day [...] on filedocumented in this encounter Care Teams Masonry Instructor Relationship Specialty Start Date End Date Senthil Mckeon MD PCP - General 12/03/18 Zen Rousseau MD MD Family Practice 07/31/[address] [address] documented as of this encounter
--- OUTSIDE RECORDS SUMMARY | 2022-04-05 08:00 | XMS_ITS | Encounter Summary ---
:1940 Author Organization [place] Address [address] [facility] 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 Ta Trimble, Procedures Echocardiogram Complete MD [address] [place], [place] [address] Referral ID Status Reason Start Date Expiration Date Visits Requ ested Visits Authorized [id number] Closed 05/06/2018 05/06/2019 1 1 [employer]SHIP PROGRAM INTERN Reason for Visit (Routine) - Closed Specialty Diagnoses / Procedures Referred By Contact Refer red To Contact Cardiology Diagnoses per Dr Trimble, Hyperlipidemia LDL goal <70 Coronary artery disease involving [place] coronary artery of [place] heart without angina pectoris Rh Cv Cardiac Svc cc Nonrheumatic Pt will check in at 1:15at [facility] [address] sent conf of this appt out to pt. nkf 09/07 [address] [facility] Procedures ECHO COMPLETE [address] [place] [address] Phone: Fax: Referral ID Status Reason Start Date Expiration Date Visits Requ ested Visits Authorized [id number] Closed 09/16/2019 09/15/2020 1 1 Encounter Details Date Type Department Care Team Description 09/16/2019 Hospital [facility] Hyperlipidemia LDL goal <70; [facility] MD [place] Coronary artery disease involving [place] coronary artery of [place] heart without angina pectoris; Heart Care [address] [place] [address] enosis [address] [facility] [address] [place] [address] Social History Tobacco Use Types Packs/Day [...] on file documented as of this encounter Medications at [...] artery disease needed for chest pain involving [place] coronary artery of [place] heart without angina pectoris pantoprazole (PROTONIX) Take [...] tabletIndications: Mixed hyperlipidemia, Coronary artery disease involving [place] coronary artery of [place] heart without angina pectoris documented as of this encounter Plan of Treatment Not on filedocumented as of this encounter Procedures Procedure Name Priority Date/Time Associated Diagnosis Comme nts ECHO COMPLETE WITH Routine 09/16/2019 2:13 PM Hyperlipidemia L DL goal Results for this CONTRAST LEADERSHIP PROGRAM INTERN <70 procedure are in Coronary artery disease the results involving [place] section. coronary artery of [place] heart without angina pectoris Nonrheumatic aortic valve stenosis documented in this encounter Results ECHO COMPLETE WITH CONTRAST (09/16/2019 2:13 PM LEADERSHIP PROGRAM INTERN) Anatomical Region Laterality Modality Echocardiography Specimen (Source) Anatomical Collection Method Collection Time Re ceived Time Location / / Volume Laterality 09/16/2019 1:33 PM LEADER[employer]IP PROGRAM INTERN Narrative 09/16/2019 2:38 PM LEADERSHIP PROGRAM INTERN [id number]^JEROME^TA^[facility] Echocardiography Laboratory [address] [place] [address] Name: DONALDO BAUTISTA : 1940 Study Date: 09/16/2019 01:33 PM Age: 79 yrs Gender: Male Patient Location: [facility] Reason For Study: Hyperlipidemia LDL goa l <70, Coronary artery disease involving n Ordering Physician: TA TRIMBLE Referring Physician: Vamsi Mckeon MD Performed By: Mehnaz Chand RDCS BSA: 2.1 m2 Height: 66 in Weight: 218 lb HR: 56 BP: 158/89 mmHg __ Procedure Complete Echo Adult. Optison ([facility] #[id number]) given intravenously. __ Interpretation Summary The visual ejection fraction is estimate d at 60-65%. There is moderate concentric left ventri cular hypertrophy. Mild to moderate valvular aortic stenosi s. MG is 17 and MARTHA is 1.5 cm2. Mild inferolateral hypokinesis. Technically difficult study with some im provement after contrast use. __ Left Ventricle The left ventricle is normal in size. Th ere is moderate concentric left ventricular hypertrophy. The visual ejec tion fraction is estimated at 60-65%. Diastolic Doppler findings (E/E' ratio a nd/or other parameters) suggest left ventricular filling pressures are indete rminate. Right Ventricle The right ventricle is normal in size an d function. Atria Normal left atrial size. Right atrial si ze is normal. Mitral Valve There is trace to mild mitral regurgitat ion. Tricuspid Valve There is trace tricuspid regurgitation. Right ventricular systolic pressure could not be approximated due to inadequ ate tricuspid regurgitation. Aortic Valve The aortic valve is trileaflet with aort ic valve sclerosis. There is trace aortic regurgitation. Mild to moderate v alvular aortic stenosis. Pulmonic Valve The pulmonic valve is not well visualize d. There is trace pulmonic valvular regurgitation. Vessels Borderline aortic root dilatation. Pericardium There is no pericardial effusion. __ MMode/2D Measurements & Calculations IVSd: 1.4 cm LVIDd: 4.6 cm LVIDs: 2.8 cm LVPWd: 1.5 cm FS: 40.0 % LV mass(C)d: 271.4 grams LV mass(C)dI: 130.8 grams/m2 Ao root diam: 3.2 cm LA dimension: 4.0 cm asc Aorta Diam: 3.9 cm LA/Ao: 1.3 LVOT diam: 2.2 cm LVOT area: 3.8 cm2 LA Volume (BP): 25.0 ml LA Volume Index (BP): 12.1 ml/m2 RWT: 0.65 Doppler Measurements & Calculations MV E max damaso: 82.4 cm/sec MV A max damaso: 98.2 cm/sec MV E/A: 0.84 MV dec time: 0.22 sec Ao V2 max: 276.6 cm/sec Ao max P.0 mmHg Ao V2 mean: 194.6 cm/sec Ao mean P.3 mmHg Ao V2 VTI: 63.4 cm MARTHA(I,D): 1.6 cm2 MARTHA(V,D): 1.5 cm2 LV V1 max P.5 mmHg LV V1 max: 106.1 cm/sec LV V1 VTI: 26.4 cm SV(LVOT): 101.4 ml SI(LVOT): 48.9 ml/m2 PA acc time: 0.08 sec PI end-d damaso: 89.6 cm/sec AV Damaso Ratio (DI): 0.38 MARTHA Index (cm2/m2): 0.77 E/E' av.3 Lateral E/e': 8.7 Medial E/e': 11.8 __ Report approved by: Darinel Kumar MDon 0 09/16/2019 02:38 PM Procedure Note Darinel Kumar MD - 09/16/2019 [id number] [facility] [id number]^JEROME^TA^[facility] Echocardiography Laboratory [address] [place] [address] Name: DONALDO BAUTISTA : 1940 Study Date: 09/16/2019 01:33 PM Age: 79 yrs Gender: Male Patient Location: [facility] Reason For Study: Hyperlipidemia LDL goa l <70, Coronary artery disease involving n Ordering Physician: TA TIRMBLE Referring Physician: Vamsi Mckeon MD Performed By: Mehnaz Chand RDCS BSA: 2.1 m2 Height: 66 in Weight: 218 lb HR: 56 BP: 158/89 mmHg __ Procedure Complete Echo Adult. Optison ([facility] #[id number]) given intravenously. __ Interpretation Summary The visual ejection fraction is estimate d at 60-65%. There is moderate concentric left ventri cular hypertrophy. Mild to moderate valvular aortic stenosi s. MG is 17 and MARTHA is 1.5 cm2. Mild inferolateral hypokinesis. Technically difficult study with some im provement after contrast use. __ Left Ventricle The left ventricle is normal in size. Th ere is moderate concentric left ventricular hypertrophy. The visual ejec tion fraction is estimated at 60-65%. Diastolic Doppler findings (E/E' ratio a nd/or other parameters) suggest left ventricular filling pressures are indete rminate. Right Ventricle The right ventricle is normal in size an d function. Atria Normal left atrial size. Right atrial si ze is normal. Mitral Valve There is trace to mild mitral regurgitat ion. Tricuspid Valve There is trace tricuspid regurgitation. Right ventricular systolic pressure could not be approximated due to inadequ ate tricuspid regurgitation. Aortic Valve The aortic valve is trileaflet with aort ic valve sclerosis. There is trace aortic regurgitation. Mild to moderate v alvular aortic stenosis. Pulmonic Valve The pulmonic valve is not well visualize d. There is trace pulmonic valvular regurgitation. Vessels Borderline aortic root dilatation. Pericardium There is no pericardial effusion. __ MMode/2D Measurements & Calculations IVSd: 1.4 cm LVIDd: 4.6 cm LVIDs: 2.8 cm LVPWd: 1.5 cm FS: 40.0 % LV mass(C)d: 271.4 grams LV mass(C)dI: 130.8 grams/m2 Ao root diam: 3.2 cm LA dimension: 4.0 cm asc Aorta Diam: 3.9 cm LA/Ao: 1.3 LVOT diam: 2.2 cm LVOT area: 3.8 cm2 LA Volume (BP): 25.0 ml LA Volume Index (BP): 12.1 ml/m2 RWT: 0.65 Doppler Measurements & Calculations MV E max damaso: 82.4 cm/sec MV A max damaso: 98.2 cm/sec MV E/A: 0.84 MV dec time: 0.22 sec Ao V2 max: 276.6 cm/sec Ao max P.0 mmHg Ao V2 mean: 194.6 cm/sec Ao mean P.3 mmHg Ao V2 VTI: 63.4 cm MARTHA(I,D): 1.6 cm2 MARTHA(V,D): 1.5 cm2 LV V1 max P.5 mmHg LV V1 max: 106.1 cm/sec LV V1 VTI: 26.4 cm SV(LVOT): 101.4 ml SI(LVOT): 48.9 ml/m2 PA acc time: 0.08 sec PI end-d damaso: 89.6 cm/sec AV Damaso Ratio (DI): 0.38 MARTHA Index (cm2/m2): 0.77 E/E' av.3 Lateral E/e': 8.7 Medial E/e': 11.8 __ Report approved by: Darinel Kumar MDon 0 09/16/2019 02:38 PM Ta Trimble MD CV ECHO ORDERABLES documented in this encounter Visit Diagnoses Diagnosis Hyperlipidemia LDL goal <70 Other and unspecified hyperlipidemia 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 Aortic valve disorders documented in this encounter Administered Medications Inactive Administered Medications - up to 3 most recent administrations Medication Order MAR Action Action Date Dose Rate Site perflutren diluted 1mL to 2mL with Given 09/16/2019 2:15 PM LEADER[employer]IP PROGRAM INTERN 3 mLs saline (OPTISON) diluted injection 3 mL 3 mL, Intravenous, ONCE, On Sat09/16/19 at 1415, For 1 dose, [facility] [id number] sodium chloride (PF) 0.9% PF flush 10 mL Given 09/16/2019 2:14 PM LEADER[employer]IP PROGRAM INTERN 10 mLs 10 mL, Intravenous, ONCE, On Sat09/16/19 at 1415, For 1 dose documented in this encounter Care Teams Rustic Fence Builder Relationship Specialty Start Date End Date Senthil Mckeon MD PCP - General 12/03/18 09/10/21 Zen Rousseau MD MD Family Practice 07/31/[address] [address] documented as of this encounter
--- OUTSIDE RECORDS SUMMARY | 2022-04-05 08:00 | XMS_ITS | Encounter Summary ---
:1940 Author Organization [place] Address [facility] [place] [address] Care Team Providers Name Role Phone Zen Rousseau MD Unavailable Senthil Mckeon MD Primary Care Provider [phone] Ta Trimble MD Unavailable [phone] Reason for Visit Reason Onset Date Comments Clinic Care Coordination - Follow-up 11/29/2020 amor pérez about PCP visit and BP medications Encounter Details Date Type Department Care Team Description 11/29/[address] [facility] Nazanin Wyman C linic Care Coordination [facility] Heart RN - Follow-up ([facility] [place] [address] [facility]) [address] [place] [address] Social History Tobacco Use Types [...] Telephone Encounter - Nazanin Wyman RN - 11/29/2020 9:53 AM CDT Patient's called and was concerned about medication changes requested by Dr. Mckeon. He said his BP was low and wanted him to decrease his lopressor 25mg in am and 12.5mg in evening. She wanted Dr. Trimble' input. Patient's blood pressure and pulse from yesterday and today: 122/69 126/76, 128/74, p 58 and this morning 126/77 p 61 and 118/64 pulse 65. Recommend patient call PCP and review blood pressures and clarify if want to decrease lopressor. Patient verbalized understanding and agreed to plan of care. documented in this encounter Plan of Treatment Not on filedocumented as of this encounter Visit Diagnoses Not on filedocumented in this encounter Care Teams Brim And Crown Presser Relationship Specialty Start Date End Date Senthil Mckeon, PCP - General 12/03/18 Zen Rousseau MD MD Family Practice 07/31/[address] [address] Ta Trimble Assigned Heart and 05/27/20 2 MD [facility] Vascular Provider [address] [place] [address] documented as of this encounter
--- OUTSIDE RECORDS SUMMARY | 2022-04-05 08:00 | XMS_ITS | Encounter Summary ---
:1940 Author Organization [place] Address [address] [facility] [place] [address] Care Team Providers Name Role Phone Zen Rousseau MD Unavailable Senthil Mckeon MD Primary Care Provider [phone] Encounter Details Date Type Department Care Team Description 10/20/2019 Travel Social History Tobacco Use Types Packs/Day [...] on filedocumented in this encounter Care Teams Name Plate Stamping Machine Operator Relationship Specialty Start Date End Date Senthil Mckeon MD PCP - General 12/03/18 Zne Rousseau MD MD Family Practice 07/31/[address] [address] documented as of this encounter
--- OUTSIDE RECORDS SUMMARY | 2022-04-05 08:00 | XMS_ITS | Encounter Summary ---
:1940 Author Organization [place] Address [address] [facility] [place] [address] Care Team Providers Name Role Phone Zen Rousseau MD Unavailable Senthil Mckeon MD Primary Care Provider [phone] Encounter Details Date Type Department Care Team Description 08/26/2019 Travel Social History Tobacco Use Types Packs/Day [...] on filedocumented in this encounter Care Teams Bond Manager Relationship Specialty Start Date End Date Senthil Mckeon MD PCP - General 12/03/18 Zen Rousseau MD MD Family Practice 07/31/[address] [address] documented as of this encounter
--- OUTSIDE RECORDS SUMMARY | 2022-04-05 08:00 | XMS_ITS | Encounter Summary ---
:1940 Author Organization [place] Address [facility] [place] [address] Care Team Providers Name Role Phone Zen Rousseau MD Unavailable Senthil Mckeon MD Primary Care Provider [phone] Ta Trimble MD Unavailable [phone] Encounter Details Date Type Department Care Team Description 10/21/2020 Travel Social History Tobacco Use Types Packs/Day [...] on filedocumented in this encounter Care Teams Glass Finisher Relationship Specialty Start Date End Date Senthil Mckeon, PCP - General 12/03/18 Zen Rousseau MD MD Family Practice 07/31/12 [facility] [address] [place] [address] Ta Trimble [facility] Heart and 05/27/20 2 MD Jerrell Vascular Provider [address] [place] [id number] documented as of this encounter
--- OUTSIDE RECORDS SUMMARY | 2022-04-05 08:00 | XMS_ITS | Encounter Summary ---
:1940 Author Organization [place] Address [facility] [place] [address] Care Team Providers Name Role Phone Zen Rousseau MD Unavailable Senthil Mckeon MD Primary Care Provider Ta Trimble MD Unavailable [phone] Reason for Visit Reason Onset Date Comments Refill Request 10/07/2020 losartan Encounter Details Date Type Department Care Team Description 10/07/2020 Refill [facility] Mayra Peña RN Refill Request (losartan Health Heart ) Care-[address] [place] [address] Social History Tobacco Use Types [...] this encounter Miscellaneous Notes Telephone Encounter - Mayra Peña RN - 10/07/2020 2:34 PM CST Medication Refilled: Losartan Last office visit: 10/20/[address] Trimble Last Labs/EKG: NA Next office visit: 10/25/2020 Pharmacy sent to: que Peña RN VISION MAINTENANCE WORKER documented in this encounter Plan of Treatment Not on filedocumented as of this encounter Visit Diagnoses Diagnosis Essential hypertension Unspecified essential hypertension documented in this encounter Care Teams Advertising Consultant Relationship Specialty Start Date End Date Senthil Mckeon, PCP - General 12/03/18 Zen Rousseau MD MD Family Practice 07/31/[address] [address] Ta Trimble Assigned Heart and 05/27/20 2 MD Jerrell Vascular Provider [address] [place] [id number] documented as of this encounter
--- OUTSIDE RECORDS SUMMARY | 2022-04-05 08:00 | XMS_ITS | Encounter Summary ---
:1940 Author Organization [place] Address [address] [facility] [place] [address] Care Team Providers Name Role Phone Zen Rousseau MD Unavailable Senthil Mckeon MD Primary Care Provider [phone] Encounter Details Date Type Department Care Team Description 04/25/2020 Telephone [facility] Senthil Porter MD [place] [phone] Social History Tobacco Use Types Packs/Day Years [...] this encounter Miscellaneous Notes Telephone Encounter - Venkata Tavera RN - 04/25/2020 4:20 PM CDT Pharmacist named Leon from [facility] pharmacy called and requesting ear drops (new Rx) for a patient. Pharmacist states that patient called pharmacy and told that he has new Rx (ear drops). Unable to find any ear drops on patient's medication list. Informed pharmacy that. Venkata Tavera RN documented in this encounter Plan of Treatment Not on filedocumented as of this encounter Visit Diagnoses Not on filedocumented in this encounter Care Teams Proof Tester Relationship Specialty Start Date End Date Senthil Mckeon MD PCP - General 12/03/18 09/10/21 Zen Rousseau MD MD Family Practice 07/31/[address] [phone] documented as of this encounter
--- OUTSIDE RECORDS SUMMARY | 2022-04-05 08:00 | XMS_ITS | Encounter Summary ---
:1940 Author Organization [place] Address [facility] [place] [address] Care Team Providers Name Role Phone Zen Rousseau MD Unavailable Senthil Mckeon MD Primary Care Provider [phone] Ta Trimble MD Unavailable Reason for Visit Reason Onset Date Comments Refill Request 02/21/2021 crestor Encounter Details Date Type Department Care Team Description 02/21/2021 Refill [facility] Wendy Downs, Refill Request (crestor) [facility] [address] Social History Tobacco Use Types Packs/Day [...] encounter Miscellaneous Notes Telephone Encounter - Wendy Downs, RN - 02/21/2021 3:23 PM CDT Received refill request for: rosuvastatin Last OV was: 10/25/[address] 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
--- OUTSIDE RECORDS SUMMARY | 2022-04-05 08:00 | XMS_ITS | Encounter Summary ---
:1940 Author Organization [place] Address [address] [facility] [place] [address] Care Team Providers Name Role Phone Zen Rousseau MD Unavailable Senthil Mckeon MD Primary Care Provider [phone] Ta Trimble MD Unavailable [phone] Encounter Details Date Type Department Care Team Description 02/24/2021 Orders Only [facility] Jacque Kurtz Encounter for Endoscopy Luning MD Aga screening for other [address] [place] [facility] viral diseases [place], [place] [address] [phone] [place] [address] (Wo rk) Social History Tobacco Use Types [...] as of this encounter Plan of Treatment Scheduled Orders Name Type Priority Associated Diagnoses Order S chedule Asymptomatic COVID-19 Microbiology Routine Encounter for Expec viktoria: Virus (Coronavirus) by screening for othe r 02/24/2021 PCR Nasopharyngeal viral diseases (Approx imate), Expires: 02/24/2022 documented as of this encounter Visit Diagnoses Diagnosis Encounter for screening for other viral diseases documented in this encounter Care Teams Casino Porter Relationship Specialty Start Date End Date Senthil Mckeon, PCP - General 12/03/18 Zen Rousseau MD MD Family Practice 07/31/[address] [address] Ta Trimble Assigned Heart and 05/27/20 2 MD Jerrell Vascular Provider [address] [place] [phone] documented as of this encounter
--- OUTSIDE RECORDS SUMMARY | 2022-04-05 08:00 | XMS_ITS | Encounter Summary ---
:1940 Author Organization [place] Address [address] [facility] [place] [address] Care Team Providers Name Role Phone Zen Rousseau MD Unavailable Senthil Mckeon MD Primary Care Provider [phone] Ta Trimble MD Unavailable [phone] Reason for Visit Auth/Cert Specialty Diagnoses / Procedures Referred By Contact Refer red To Contact Gastroenterology Diagnoses History of colon polyps History of colon polyps [Z86.010] Endoscopy Procedures HC COLONOSCOPY W/WO BRUSH/WASH COLONOSCOPY [address] [place] [address] Phone: Fax: Referral ID Status Reason Start Date Expiration Date Visits Requ ested Visits Authorized [id number] 1 1 Encounter Details Date Type Department Care Team Description 04/06/[address] [facility] Jacque Kurtz COLONOSCO PY, FLEXIBLE, Endoscopy Mackenzie Yung MD WITH POLYPECTOMIES AND [address] GASTROENTEROLOGY BIOPSIES USING COLD [place], [place] [address] [place] [phone] [address] [phone] [place], [place] [address] (Wo rk) Surgery Details Date/Time Status Location OR Service Patient Class Case Case Trauma Class Type Case? 04/06/21 9:15 Posted GI GI B Gastroenterology Outpatient AM Panel 1 Procedure LRB Anes Op Region Wound Class Commen ts COLONOSCOPY, FLEXIBLE, N/A Conscious Sedation Rectum II-Cl denise Contaminated WITH POLYPECTOMIES AND BIOPSIES USING COLD SNARE AND BIOPSY FORCEP Colonoscopy, With N/A Rectum II-Clean Contamina viktoria Polypectomy And Biopsy Surgeon Surgeon Role Service Panel Jacque Kurtz MD Primary Gastroenterology 1 Special Needs Covid negative 04/03 jkk results w/chart documented in this encounter Social History Tobacco Use Types Packs/Day Years [...] Sign Reading Time Taken Comments Blood Pressure 142/73 04/06/2021 10:00 AM CDT Pulse 87 04/06/2021 10:00 AM CDT Temperature 35.7 ??C (96.3 ??F) 04/06/2021 8:52 AM CDT Respiratory Rate 18 04/06/2021 10:00 AM CDT Oxygen Saturation 95% 04/06/2021 10:00 AM CDT Inhaled Oxygen Concentration - - [...] the chance of preventing its spread. ?? 2392-5452 [place] [address]. All rights reserved. This information is not [...] be sent through Care Everywhere. Colitis, Understanding (Serbian)documented in this encounter Medications at Time of [...] artery disease needed for chest pain involving [place] coronary artery of [place] heart without angina pectoris pantoprazole (PROTONIX) Take 40 mg by mouth 0 40 MG enteric coated every 48 hours tablet rosuvastatin (CRESTOR) Take 1 tablet (40 mg) 90 tablet 2 40 MG by mouth daily tabletIndications: Mixed hyperlipidemia, Coronary artery disease involving [place] coronary artery of [place] heart without angina pectoris VITAMIN D, Take 1,000 Units by 0 CHOLECALCIFEROL, PO mouth daily atorvastatin (LIPITOR) 0 10/21/2020 20 MG tablet furosemide (LASIX) 20 Take 1 tablet (20 mg) 90 tablet 3 10/04/2021 MG tabletIndications: by mouth as needed Essential hypertension, (Use as Directed for Coronary artery disease edema) involving [place] coronary artery of [place] heart without angina pectoris losartan (COZAAR) 50 [...] ct scan PLAN: coloboscoopy Jacque Kurtz MD [facility] Office: [phone] documented in this encounter Plan of Treatment [...] Component Value Ref Test Analysis Performed At [facility] gist Range Method Time Signature Case Report Surgical Pathology Report ? Case: [id number] ? 04/07/2021 RH Authorizing Provider: ??Jacque Parks MD ?? Collected: ? 04/06/2021 09:12 AM ? 1:04 PM LABORATOR Y Ordering Location: ? [facility] [place] ?Received: ?04/06/2021 10:39 AM ? CDT ? Endoscopy [place] ? Pathologist: ? Ramsey Ruelas MD PhD [...] high-grade dysplasia and malignancy. Clinical Screening 04/07/2021 RH Information colonoscopy 1:04 PM LABORATORY CDT Case Images 04/07/2021 RH 1:04 PM LABORATORY CDT Gross A(1). Large [...] greatest dimension. Entirely submitted in one cassette. (Ana Coy, PA ASCP CM) Microscopic Microscopic examination was performed. 04/07/2021 Description 1:04 PM LABORATORY CDT Performing The technical 04/07/2021 Labs component of this 1:04 PM LABORATORY testing was CDT completed at [facility] Laboratory Specimen Anatomical Collection Method Collection Time Receive d Time (Source) Location / / Volume Laterality Polyp ASCENDING COLON 04/06/2021 9:12 AM 2020 STRUCTURE / CDT 10:39 AM CDT Unknown Polyp COLON STRUCTURE / 04/06/2021 9:18 AM 090 09/2020 (morphologic Unknown CDT 10:39 AM CDT abnormality) Polyp TRANSVERSE COLON 04/06/2021 9:19 AM 04/06 (morphologic STRUCTURE / CDT 10:39 AM CDT abnormality) Unknown Polyp DESCENDING COLON 04/06/2021 9:25 AM 04/06 (morphologic STRUCTURE / CDT 10:39 AM CDT abnormality) Unknown Jacque EDEN Performing Organization Address City/State/ZIP Code Phon [place] [phone] Care Lab [address] (1st floor, no room number) COLONOSCOPY (04/06/2021 8:48 AM CDT) [facility] Method Time Signature COLONOSCOPY [facility] RADIOLOGY RESULTS Patient Name: Sreedhar Bautista ? Procedure Date: 04/06/2021 8:48 AM ? Accou nt Number: [id number] Date of : 1940 ?Admit Type: Out [...] CF- H190L, [place] ?# 221, SN # [id number] was introduced through the anus ?and advanced [...] Procedure Code(s): ? --- Professional --- ? 68906, Colonoscopy, flexible; with removal of tumor (s), polyp(s), or ? other lesion(s) by snare technique CPT copyright 2019 [employer]. All rights reserved. The codes documented in this report are prelimin nav and upon hospital coder review may be revised to meet current compliance requirements. Electronically signed by Lucía Kurtz M.D. Jacque Kutrz MD 04/06/2021 9:43:49 AM I was physically present for the entire viewing portion of t he exam. Jacque Kurtz MD Number of Addenda: 0 Note Initiated On: 04/06/2021 8:48 AM MRN: ?[id number] Procedure Date: ? 04/06/2021 8:48:51 AM Scope [...] RESULTS documented in this encounter Visit Diagnoses Diagnosis History of colon polyps Personal history of colonic polyps documented in this encounter Administered Medications Inactive [...] sedation, Administer over 1 Minutes, Starting on T hu 04/06/21 at 0840, For 12 hours, Give [...] sedation, Administer over 1 Minutes, Starting on [facility] 04/06/21 at 0840, For 48 [...] pain, with VAD insertion, S tarting on [facility] 04/06/21 at 0840, Apply at least 30 [...] mild pain with VAD insertion, Starting on [facility] 04/06/21 at 0840, MAX dose 1 mL [...] EVERY 4 MIN PRN, sedation, Starting on [facility] 04/06/21 at 0900, For 24 hours, Caution: [...] - Provider: Paula Ho RN - Comment: michael) 50 mcg, Intravenous, ONCE WITHIN 24 HRS, [...] 25 mcg 901 (Given - Provider: Paula Ho RN)907 (Given - Provider: Paula Ho RN [...] chloride (PF) 0.9% PF flush 3 mL 09 (Given - Provider: Paula Ho RN)09 (Given - Provider: Paula Ho RN)0908 (Given [...] provider.
documented in this encounter Care Teams Restaurant Host/Hostess Relationship Specialty Start Date End Date Senthil Mckeon, PCP - General 12/03/18 Zen Rousseau MD MD Family Practice 07/31/[address] [address] Ta Trimble Assigned Heart and 05/27/20 2 MD Jerrell Vascular Provider [address] [place] [address] [phone] documented as of this encounter
--- OUTSIDE RECORDS SUMMARY | 2022-04-05 08:00 | XMS_ITS | Encounter Summary ---
:1940 Author Organization [place] Address [address] [facility] [place] [address] Care Team Providers Name Role Phone Zen Rousseau MD Unavailable Senthil Mckeon MD Primary Care Provider [phone] Ta Trimble MD Unavailable [phone] Ronnie Myers Primary Care Provider Mali Dowd APRN, CNP Unavailable Encounter Details Date Type Department Care Team Description 04/03/2021 External Order [facility] Outside, Provide r Results Molecular Diagnostic s [address] [place] [phone] Social History Tobacco Use Types Packs/Day Years [...] Name Priority Date/Time Associated Diagnosis Comme nts COVID-19 VIRUS Routine 04/03/2021 9:55 AM Results for this (CORONAVIRUS) BY CDT procedure a re in PCR (EXTERNAL the results RESULT) section. documented in this encounter Results COVID-19 Virus (Coronavirus) by PCR (External Result) (04/03/2021 9:55 AM CDT) P athologist Signature COVID-19 Virus ABSENT ABSENT NON-INTERFACED by PCR (ONBASE SCANS) (External Result) Specimen (Source) Anatomical Collection Method Collection Time Re ceived Time Location / / Volume Laterality 04/03/2021 9:55 AM CDT Narrative [facility] PFT - 05/03/2021 11:54 AM CDT Verified by Damion German on 2020. Patient Reported LABORATORY Performing Organization Address City/State/ZIP Code Phon e Number [facility] NON-INTERFACED (ONBASE SCANS) documented in this encounter Visit Diagnoses Not on filedocumented in this encounter Care Teams Supervisor Loading Relationship Specialty Start Date End Date Senthil Mckeon, PCP - General 12/03/18 Ronnie Myers PCP - General Family Medicine 09/11/21 [facility] [address] [place], [place] [phone] Zen Rousseau MD MD Family Practice 07/31/12 [facility] [address] [place] [address] Ta Trimble Assigned Heart and 05/27/20 2 MD Jerrell Vascular Provider [address] [place] [address] Mali Dowd APRN CNP Assigned Heart and 10/08/21 [address] Vascular Provider BEV ROBERSON [id number] documented as of this encounter
--- OUTSIDE RECORDS SUMMARY | 2022-04-05 08:00 | XMS_ITS | Encounter Summary ---
:1940 Author Organization [place] Address [facility] [place] [address] Care Team Providers Name Role Phone Zen Rousseau MD Unavailable Senthil Mckeon MD Primary Care Provider [phone] Reason for Visit Reason Onset Date Comments Refill Request 09/28/2019 Losartan Encounter Details Date Type Department Care Team Description 09/28/2019 Refill [facility] Mayra Peña RN Refill Request (Losartan) [address] [place] [address] Social History Tobacco Use Types [...] Telephone Encounter - Mayra Peña RN - 09/28/2019 1:16 PM CST Medication Refilled: Losartan Last office visit: 12/03/2018 with Mali Dowd Last Labs/EKG: NA Next office visit: 10/20/[address] Trimble Pharmacy sent to: Willy Peña RN [facility] documented in this encounter Plan of Treatment Not on filedocumented as of this encounter Visit Diagnoses Diagnosis Essential hypertension Unspecified essential hypertension documented in this encounter Care Teams Vp Talent Management Relationship Specialty Start Date End Date Senthil Mckeon MD PCP - General 12/03/18 09/10/21 Zen Rousseau MD MD Family Practice 07/31/[address] [phone] documented as of this encounter
--- OUTSIDE RECORDS SUMMARY | 2022-04-05 08:00 | XMS_ITS | Encounter Summary ---
:1940 Author Organization [place] Address [facility] [place] [address] Care Team Providers Name Role Phone Zen Rousseau MD Unavailable Senthil Mckeon MD Primary Care Provider [phone] Reason for Visit Reason Onset Date Comments Refill Request 02/23/2020 Metoprolol Encounter Details Date Type Department Care Team Description 02/23/2020 Refill [facility] Ta Trimble Refill Request [facility] Heart MD Jerrell (Metoprolol) [address] [address] [address] [place] [address] Social History Tobacco Use Types [...] hypertension documented in this encounter Care Teams Hanging Flags Decorator Relationship Specialty Start Date End Date Senthil Mckeon MD PCP - General 12/03/18 09/10/21 Zen Rousseau MD MD Family Practice 07/31/[address] [phone] documented as of this encounter
--- OUTSIDE RECORDS SUMMARY | 2022-04-05 08:00 | XMS_ITS | Encounter Summary ---
:1940 Author Organization [employer] Address [address] [place] [address] Care Team Providers Name Role Phone Zen Rousseau MD Unavailable Senthil Mckeon MD Primary Care Provider [phone] Encounter Details Date Type Department Care Team Description 10/20/2019 Orders Only [facility], [facility] [address] [facility] [address] [place] [address] Social History Tobacco Use [...] Associated Diagnosis Comme nts LIPID PROFILE Routine 06/01/2019 Results for th is procedure are in the resu lts section. documented in this encounter Results (ABNORMAL) Lipid Profile (06/01/2019) [facility] Time Signature Cholesterol 164 90 - 200 [place] mg/dL [facility] Triglycerides 110 40 - 197 [place] mg/dL [facility] HDL Cholesterol 71 (A) 40 mg/dL [facility] LDL Cholesterol 71 (A) 100 mg/dL [facility] Non HDL [facility] ALT 16 (A) 3.3 - 5.0 [place] [facility] AST 21 12 - 35 [place] [facility] Specimen (Source) Anatomical Location Collection Method / Collectio n Time Received Time / Laterality Volume Blood specimen 06/01/2019 (specimen) Patient Reported LAB - BLOOD ORDERABLES Performing Organization Address City/State/ZIP Code Phon e Number [facility] [address] [place] [address] [phone] documented in this encounter Visit Diagnoses Not on filedocumented in this encounter Care Teams Service Order Taker Relationship Specialty Start Date End Date Senthil Mckeon MD PCP - General 12/03/18 09/10/21 Zen Rousseau MD MD Family Practice 07/31/[address] [phone] documented as of this encounter
--- OUTSIDE RECORDS SUMMARY | 2022-04-05 08:00 | XMS_ITS | Encounter Summary ---
:1940 Author Organization [place] Address [facility] [place] [address] Care Team Providers Name Role Phone eZn Rousseau MD Unavailable Senthil Mckeon MD Primary Care Provider Reason for Visit Reason Onset Date Comments COVID-19 SCREENING 10/19/2019 Encounter Details Date Type Department Care Team Description 10/19/2019 Telephone [facility] Za Davidson R N COVID-[address] [place] [address] Social History Tobacco Use [...] this encounter Miscellaneous Notes Telephone Encounter - Za Davidson RN - 10/19/2019 10:17 AM CDT Office Visit: 10-20-2019 COVID-19 Symptom Screening: Do you have a: ??? Fever? no ??? Cough? no ??? Shortness of breath? yes, patient has COPD, no change ??? Skin rash? no ??? Within the past 14 days, have you been in contact with someone who: ??? Is currently being ruled out for COVID-19 (novel coronavirus)? no ??? Has tested positive for COVID-19? no ??? Has symptoms of a respiratory illness (fever, cough, shortness of breath)? no Have you or someone you have been in contact with traveled to an area with COVID-19: no ??? Refer to the [facility] Coronavirus webpage for COVID-19 areas: (if yes, what country?) Within the past 3 weeks, have you been exposed to the following: ??? Pertussis? no ??? Chicken pox? no ??? Measles? no Patient's appointment status: Appointment converted to phone visit documented in this encounter Plan of Treatment Not on filedocumented as of this encounter Visit Diagnoses Not on filedocumented in this encounter Care Teams It Security Engineer Relationship Specialty Start Date End Date Senthil Mckeon MD PCP - General 12/03/18 09/10/21 Zen Rousseau MD MD Family Practice 07/31/[address] [phone] documented as of this encounter
--- OUTSIDE RECORDS SUMMARY | 2022-04-05 08:00 | XMS_ITS | Encounter Summary ---
:1940 Author Organization [place] Address [address] [facility] [place] [address] Care Team Providers Name Role Phone Zen Rousseau MD Unavailable Senthil Mckeon MD Primary Care Provider [phone] Reason for Referral CV Testing (Routine) - Closed Specialty Diagnoses / Procedures Referred By Contact Refer red To Contact Cardiology Diagnoses Nonrheumatic aortic valve stenosis Ankita Trimble, Tyrel Cv Cardiac Svc Rscc Procedures Echocardiogram Complete HC TTE W/DOPPLER, COMPLETE HC ECHO COMPLETE W DOPPLER W CONTRAST HC ECHO COMPLETE W DOPPLER W/O CONTRAST HC IV PUSH SINGLE, INITIAL SUBSTANCE HC US GUIDE FOR PERICARDIOCENT[place] [address] [employer] C INJECTION, PERFLUTREN LIPI D MICROSPHERES, PER ML HC STATISTIC IV PUSH SINGLE INITIAL SUBSTANCE [address] [facility] [address] [place], [place] [address] [address] [place] [address] Phone: Fax: Referral ID Status Reason Start Date Expiration Date Visits Requ ested Visits Authorized [id number] Closed 10/20/2019 10/21/2020 1 1 Reason for Visit Reason Onset Date Comments Coronary Artery Disease 10/20/2019 Encounter Details Date Type Department Care Team Description 10/20/2019 Virtual Visit Ankita Mcdowell Nonrheuma tic aortic valve stenosis (Primary Dx); [facility] MD Rebeca Essential hypertension Heart [address] [place] [address] [facility] [address] [address] [place], [place] (Work) [address] [phone] Social History Tobacco Use Types Packs/Day Years [...] Sign Reading Time Taken Comments Blood Pressure - - Pulse - - Temperature - - Respiratory Rate - - Oxygen Saturation - - Inhaled Oxygen Concentration - - Weight 93 kg (205 lb) 10/20/2019 7:55 AM CDT Height 167.6 cm (5' 6) 10/20/2019 7:55 AM CDT Body Mass Index 33.09 10/20/2019 7:55 AM CDT documented in this encounter Progress Notes Ankita Trimble MD - 10/20/2019 7:45 AM CDT Donaldo Bautista is a 79 year old male who is being evaluated via a billable telephone visit. The patient has been notified of following: This telephone visit will be conducted via a call between you and your physician/provider. We have found that certain health care needs can be provided without the need for a physical exam. This service lets us provide the care you need with a short phone conversation. If a prescription is necessary we can send it directly to your pharmacy. If lab work is needed we can place an order for that and you can then stop by our lab to have the test done at a later time. If during the course of the call the physician/provider feels a telephone visit is not appropriate, you will not be charged for this service. Donaldo Bautista complains of Chief Complaint Patient presents with ??? Coronary Artery Disease I have reviewed and updated the patient's Past Medical History, Social History, Family History and Medication List. ALLERGIES Fish oil and Penicillins PAM Zhao Additional provider notes: Donaldo Bautista is a pleasant 79-year-old gentleman whom I spoke to on the phone today along with his . He has a history of mild aortic stenosis which we are following, coronary artery disease with aninferolateral KS in June 2010 treated with a INGRID in the twos marginal, hyperlipidemia, hypertension, obesity, and obstructive sleep apnea using CPAP. He has a normal ejection fraction. Today Erlin reports that he has done well over the last year. He continues to have a lot of problems with musculoskeletal pain and is quite limited in his activities, virtually no exercise during the winter months. 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 His main complaint is knee pain. He assures me that his weight is stable and that on his homescale he is most was 209 pounds. He does not have a home blood pressure machine but review of his office blood pressure shows excellent control over the last multiple readings with no systolic values greater than 126. Erlin feels that his energy is normal. He specifically denies any exertional chest, arm, neck, or jaw discomfort as well as any symptoms of syncope or near syncope, strokelike symptoms, orthostasis, PND/orthopnea, palpitations, or claudication. He has had problems with peripheral edema in the past but this has been well controlled with his ongoing use of Lasix 20 mg daily. He also complains of some occasional nighttime charley horses. Erlin recently had an echocardiogram done and I reviewed that with him. It shows a slight increase in his aortic valve gradient to 17 mmHg with an estimated valve area of 1.5 cm??. There was felt to be some mild inferolateral hypokinesis but the EF was still normal. He has mild to moderate LVH. Assessment/Plan: 1. Aortic stenosis. Stable, slowly progressive, asymptomatic. Anticipate many years before action needed. 2. Coronary artery disease. The patient remains asymptomatic, no plans for further valuation in the is he develops symptoms. 3. Hypertension. Managed through primary care, blood pressure has been very well controlled. 4. Hyperlipidemia. Also managed through primary care. Patient is on Crestor 20 mg daily. 5. Obesity. 6. Obstructive sleep apnea. The patient assures me that he uses CPAP anytime he sleeps. Follow-up will be planned in 1 year with echocardiogram. I have reviewed the note as documented above. This accurately captures the substance of my conversation with the patient. Saran Trimble MD, [facility] Phone call contact time Call Started at [phone] Call Ended at 820 Ankita Trimble MD documented in this encounter Plan of Treatment Not on filedocumented as of this encounter Results ECHO COMPLETE (10/21/2020 2:49 PM CDT) Anatomical Region Laterality Modality Echocardiography Specimen (Source) Anatomical Collection Method Collection Time Re ceived Time Location / / Volume Laterality 10/21/2020 2:10 PM CDT Narrative 10/21/2020 4:54 PM CDT [id number]^JEROME^ANKITA^REBECA [facility] Echocardiography Laboratory [address] [place] [id number] Name: DONALDO BAUTISTA : 1940 Study Date: 10/21/2020 02:10 PM Age: 80 yrs Gender: Male Patient Location: [facility] Reason For Study: Nonrheumatic aortic va lve stenosis Ordering Physician: ANKITA TRIMBLE Referring Physician: ANKITA TRIMBLE Performed By: Darcy Workman BSA: 2.0 m2 [...] note might be different from the original. [id number]^JEROME^ANKITA^[facility] Echocardiography Laboratory [address] [place] [id number] Name: DONALDO BAUTISTA [place]in[place] : 1940 Study Date: 10/21/2020 02:10 PM Age: 80 yrs Gender: Male Patient Location: [facility] Reason For Study: Nonrheumatic aortic va lve stenosis Ordering Physician: ANKITA TRIMBLE Referring Physician: ANKITA TRIMBLEE Performed By: Darcy Workman BSA: 2.0 m2 [...] approved by: Morgan Polo 10/21/2020 04:54 PM Ankita Trimble MD CV ECHO ORDERABLES documented in this encounter Visit Diagnoses Diagnosis Nonrheumatic aortic valve stenosis - [facility] Aortic valve disorders Essential hypertension Unspecified essential hypertension Nonrheumatic aortic valve stenosis Aortic valve disorders documented in this encounter Care Teams Mold Sprayer Relationship Specialty Start Date End Date Senthil Mckeon MD PCP - General 12/03/18 09/10/21 Zen Rousseau MD MD Family Practice 07/31/[address] [address] documented as of this encounter
--- OUTSIDE RECORDS SUMMARY | 2022-04-05 08:00 | XMS_ITS | Encounter Summary ---
:1940 Author Organization [place] Address [facility] [address] Care Team Providers Name Role Phone Zen Rousseau MD Unavailable Senthil Mckeon MD Primary Care Provider [phone] Ta Trimble MD Unavailable [phone] Encounter Details Date Type Department Care Team Description 10/20/2020 Travel Social History Tobacco Use Types Packs/Day [...] been in contact with No / Unsure 10/20/2020 11:59 AM CDT someone who was confirmed or suspected to have Coronavirus / COVID-19? documented as of this encounter Plan of Treatment Not on filedocumented as of this encounter Visit Diagnoses Not on filedocumented in this encounter Care Teams Information Systems Consultant Relationship Specialty Start Date End Date Senthil Mckeon, PCP - General 12/03/18 Zen Rousseau MD MD Family Practice 07/31/12 [facility] [address] [place] [address] Ta Trimble [facility] Heart and 05/27/20 2 MD [facility] Provider [address] [place] [id number] documented as of this encounter
--- OUTSIDE RECORDS SUMMARY | 2022-04-05 08:00 | XMS_ITS | Encounter Summary ---
:1940 Author Organization [place] Address [facility] [place] [address] Care Team Providers Name Role Phone Zen Rousseau MD Unavailable Senthil Mckeon MD Primary Care Provider [phone] Encounter Details Date Type Department Care Team Description 10/20/2019 Orders Only [facility] [address] [address] [facility] [address] [place] [address] Social History Tobacco Use [...] Name Priority Date/Time Associated Diagnosis Comme nts BASIC METABOLIC PANEL Routine 10/01/2019 Result s for this procedure are i n the results section . CBC WITH PLATELETS Routine 10/01/2019 Results f or this procedure are i n the results section . documented in this encounter Results (ABNORMAL) CBC with platelets (10/01/2019) [facility] Method Time Signature WBC 7.1 4.5 - 11.0 [place] 10^9/L [facility] RBC Count 4.44 4.30 - [place] 5.90 [facility] 10^12/L Hemoglobin 13.0 (A) 13.5 - [place] 17.5 g/dL [facility] Hematocrit 41.5 37 - 53 % [facility] MCV 94 80 - 100 [facility] MCH 29 26 - 34 pg [facility] MCHC 31 (A) 32 - 36 [place] g/dL HOSPITAL RDW [facility] Platelet Count 148 140 - 440 [place] 10^9/L HOSPITAL Specimen (Source) Anatomical Location Collection Method / Collectio n Time Received Time / Laterality Volume Blood specimen 10/01/2019 (specimen) Patient Reported LAB - BLOOD ORDERABLES Performing Organization Address City/State/ZIP Code Phon e Number [facility] [address] [place] [address] (ABNORMAL) Basic metabolic panel (10/01/2019) Analysis Performed At Patho logist Time Signature Sodium 137 135 - 149 [place] mmol/L [facility] Potassium 4.0 3.6 - 5.1 [place] mmol/L [facility] Chloride 98 96 - 114 [place] mmol/L [facility] Carbon Dioxide 32 20 - 32 [place] mmol/L [facility] Anion Gap [facility] Glucose 126 (A) 60 - 115 [place] mg/dL [facility] Urea Nitrogen 18 7 - 30 [place] mg/dL [facility] Creatinine 0.9 0.5 - 1.5 [place] mg/dL [facility] Calcium 9.5 8.4 - 10.6 [place] mg/dL [facility] GFR Estimate [facility] GFR Estimate If [facility] Specimen (Source) Anatomical Location Collection Method / Collectio n Time Received Time / Laterality Volume Blood specimen 10/01/2019 (specimen) Patient Reported LAB - BLOOD ORDERABLES Performing Organization Address City/State/ZIP Code Phon e Number [facility] [address] [place] [address] [phone] documented in this encounter Visit Diagnoses Not on filedocumented in this encounter Care Teams Industrial Psychologist Relationship Specialty Start Date End Date Senthil Mckeon MD PCP - General 12/03/18 09/10/21 Zen Rousseau MD MD Family Practice 07/31/[address] [address] documented as of this encounter
--- OUTSIDE RECORDS SUMMARY | 2022-04-05 08:00 | XMS_ITS | Encounter Summary ---
:1940 Author Organization [place] Address [address] [facility] [place] [address] Care Team Providers Name Role Phone Zen Rousseau MD Unavailable Senthil Mckeon MD Primary Care Provider [phone] Reason for Visit Auth/Cert Specialty Diagnoses / Procedures Referred By Contact Refer red To Contact Gastroenterology Diagnoses Screen for colon cancer Screen for colon cancer [Z12.11] Endoscopy Procedures COLONOSCOPY [address] [place] [address] Phone: Fax: Referral ID Status Reason Start Date Expiration Date Visits Requ ested Visits Authorized [id number] 1 1 Encounter Details Date Type Department Care Team Description 08/26/2019 Surgery [facility] Anna Black, COLO NOSCOPY, WITH Endoscopy Mackenzie MAXWELL POLYPECTOMY AND BIOPSY [address] [place] using jumbo forceps [place], [place] GASTROINTESTINAL [address] [facility] [phone] [place], [place] [id number] Surgery Details Date/Time Status Location OR Service Patient Class Case Case Trauma Class Type Case? 08/26/19 8:00 Posted GI GI C Gastroenterology Outpatient AM Panel 1 Procedure LRB Anes Op Region Wound Class Commen ts COLONOSCOPY, WITH N/A Conscious Rectum II-Clean ;nulyte ly ps POLYPECTOMY AND Sedation Contaminated 08/03,B R BIOPSY using jumbo forceps Colonoscopy, N/A Rectum II-Clean Flexible, With Contaminated Lesion Removal Using Snare exacto snare Surgeon Surgeon Role Service Panel Anna Black MD Primary Gastroenterology 1 Special Needs Ps sent by ELOY documented in this encounter Social History Tobacco [...] Sign Reading Time Taken Comments Blood Pressure 167/95 08/26/2019 8:25 AM TRANSPORTATION PLANNING TECHNICIAN Pulse 89 08/26/2019 8:25 AM TRANSPORTATION PLANNING TECHNICIAN Temperature - - Respiratory Rate 32 08/26/2019 8:25 AM TRANSPORTATION PLANNING TECHNICIAN Oxygen Saturation 81% 08/26/2019 8:25 AM TRANSPORTATION PLANNING TECHNICIAN Inhaled Oxygen Concentration - - Weight - - Height - - Body Mass Index - - documented in this encounter Discharge Instructions Discharge InstructionsZaira Henao RN - 08/26/2019 8:42 AM TRANSPORTATION PLANNING TECHNICIAN Images from the original note were not [...] the chance of preventing its spread. ?? [phone] [facility], [address] [place] [address], [place] [address]. All rights reserved. This information is not intended as a substitute for professional medical care. Always follow your healthcare professional's instructions. SPORTATION PLANNING TECHNICIAN documented in this encounter Medications at Time [...] artery disease needed for chest pain involving squaxin coronary artery of squaxin heart without angina pectoris pantoprazole (PROTONIX) Take [...] tabletIndications: Mixed hyperlipidemia, Coronary artery disease involving squaxin coronary artery of squaxin heart without angina pectoris documented as of [...] by: Anna Black MD August 26, 2019 SPORTATION PLANNING TECHNICIAN documented in this encounter Miscellaneous Notes Result Encounter Note - Anna Black MD - 08/26/2019 9:13 AM CST Pt informed of results. No redo. SPORTATION PLANNING TECHNICIAN documented in this encounter Plan of Treatment Not on filedocumented as of this encounter Procedures Procedure Name Priority Date/Time Associated Diagnosis Comme nts SURGICAL PATHOLOGY Routine 08/26/2019 8:20 AM Res ults for this EXAM TRANSPORTATION PLANNING TECHNICIAN procedure are i n the results section. COLONOSCOPY, 08/26/2019 7:55 AM History of colon FLEXIBLE, WITH TRANSPORTATION PLANNING TECHNICIAN polyps LESION REMOVAL USING SNARE Special Needs Ps sent by BR COLONOSCOPY, WITH POLYPECTOMY AND 08/26/2019 7:5 5 AM TRANSPORTATION PLANNING TECHNICIAN History of colon polyps BIOPSY Special Needs Ps sent by BR COLONOSCOPY Routine 08/26/2019 7:42 AM TRANSPORTATION PLANNING TECHNICIAN Resul ts for this procedure are in the results section . documented in this encounter Results Surgical pathology exam (08/26/2019 8:20 AM TRANSPORTATION PLANNING TECHNICIAN) Component Value Ref Test Analysis Performed At [facility] Range Method Time Signature Copath Report Patient Name: DONALDO BAUTISTA MR#: [id number] Specimen #: [id number] Collected: 08/26/2019 Received: 08/26/2019 [...] of this testing was completed at the [facility], with the professional compo nent performed at the [facility], [address] [place] [address] [phone] ([phone]) CPT Codes: A: 45264-IU7 COLLECTION SITE: Client: [facility] Location: [facility] (R) Specimen (Source) Anatomical Collection Method Collection Time Re ceived Time Location / / Volume Laterality Polyp LARGE INTESTINE 08/26/2019 8:20 AM (morphologic PART / Unknown TRANSPORTATION PLANNING TECHNICIAN abnormality) [facility] Performing Organization Address City/State/ZIP Code Phon e Tana CORRIGAN COLONOSCOPY (08/26/2019 7:42 AM TRANSPORTATION PLANNING TECHNICIAN) [facility] Method Time Signature COLONOSCOPY [facility] RAD IOLOGY RESULTS Patient Name: Donaldo Bautista ? Procedure Date: 08/26/2019 7:42 AM ? Accou nt Number: [id number] Date of : 1940 ?Admit Type: Out patient Age: 79 ? Gender: Male Attending MD: Anna fry MD ?? Total Sedation Time: 15_minutes continuous bedside 1:1 Instrument Name: 217 - Pediatric Colonoscope Procedure: ?Colonoscopy Indications: ?High ri sk colon cancer surveillance: Personal ?history of colonic po lyps Providers: ?Anna Black MD (Doc tor) Referring MD: ? Senthil Mckeon (Refer ring [...] and ?oxygen saturations were monitored continuously. The ?[employer] Pediatric Colonoscope, Model # [id number], ?[place] # 217, SN # [id number] was introduced through ?the anus and advanced [...] Procedure Code(s): ? --- Professional --- ? 24566, Colonoscopy, flexible; with removal of tumor (s), polyp(s), or ? other lesion(s) by snare technique Diagnosis Code(s): ? --- Professional --- ? D12.3, Benign neoplasm of transverse colo n (hepatic flexure or splenic ? flexure) CPT copyright 2018 [employer]. All rights reserved. The codes documented in this report are prelimin nav and upon medical biller coder review may be revised to meet current compliance requirements. Electronically signed by Anna Black MD Anna Black MD 08/26/2019 8:30:03 AM I was physically present for the entire viewing portion of t he exam. Anna Black MD Number of Addenda: 0 Note Initiated On: 08/26/2019 7:42 AM MRN: ?[id number] Procedure Date: ? 08/26/2019 7:42:29 AM Scope Withdrawal Time: 0 hours 8 minutes 26 seconds Total Procedure Duration: 0 hours 15 minutes 20 seconds Estimated Blood Loss: ? Scope In: 8:09:47 AM Scope Out: 8:25:07 AM Specimen (Source) Anatomical Collection Method Collection Time Re ceived Time Location / / Volume Laterality 08/26/2019 7:42 AM TRANSPORTATION PLANNING TECHNICIAN Senthil Mckeon MD PROCEDURES Performing Organization Address City/State/ZIP Code Phon e Number RADIOLOGY RESULTS documented in this encounter Visit Diagnoses Diagnosis History of colon polyps Personal history of colonic polyps documented in this encounter Administered Medications Inactive Administered Medications - up to 3 most recent administrations Medication Order MAR Action Action Date Dose Rate Site fentaNYL (PF) (SUBLIMAZE) Given 08/26/2019 8:12 AM TRANSPORTATION PLANNING TECHNICIAN 50 mcg injection PRN, Administer over 3-5 Minutes, Starting on Sat08/26/19 at 0807, Intra-procedure Given 08/26/2019 8:07 AM TRANSPORTATION PLANNING TECHNICIAN 50 mcg lidocaine (LMX4) kit Topical, EVERY [...] midazolam (VERSED) injection Given 08/26/2019 8:12 AM TRANSPORTATION PLANNING TECHNICIAN 1 mg Administer over 2 Minutes, PRN, Starting on Sat08/26/19 at 0807, Intra-procedure Given 08/26/2019 8:07 AM TRANSPORTATION PLANNING TECHNICIAN 1 mg ondansetron (ZOFRAN) injection 4 mg [...] Recently Administered Medications Times are shown in TRANSPORTATION PLANNING TECHNICIAN. Scheduled Medication Order 08/24/2019 08/25/2019 08/26/2019 0.9% [...] (SUBLIMAZE) injection 0807 (Given - Provider: Anna Black MD)0812 (Given [...]
Post-procedure documented in this encounter Care Teams Knockdown Man Relationship Specialty Start Date End Date Senthil Mckeon MD PCP - General 12/03/18 09/10/21 Zen Rousseau MD MD Family Practice 07/31/[address] [phone] documented as of this encounter
--- OUTSIDE RECORDS SUMMARY | 2022-04-05 08:00 | XMS_ITS | Encounter Summary ---
:1940 Author Organization [place] Address [facility] [place] [address] Care Team Providers Name Role Phone Zen Rousseau MD Unavailable Senthil Mckeon MD Primary Care Provider [phone] Ta Trimble MD Unavailable [phone] Encounter Details Date Type Department Care Team Description 10/25/2020 Travel Social History Tobacco Use Types Packs/Day [...] on filedocumented in this encounter Care Teams Application Support Analyst Relationship Specialty Start Date End Date Senthil Mckeon, PCP - General 12/03/18 Zen Rousseau MD MD Family Practice 07/31/12 [facility] [address] [place] [address] Ta Trimble [facility] Heart and 05/27/20 2 MD [facility] Provider [address] [place] [phone] documented as of this encounter
--- OUTSIDE RECORDS SUMMARY | 2022-04-05 08:01 | XMS_ITS | Encounter Summary ---
:1940 Author Organization [place] Address [address] [facility] [place] [address] Care Team Providers Name Role Phone Zen Rousseau MD Unavailable Mckenzie Mayorga MD Primary Care Provider Reason for Visit Reason Onset Date Comments Refill Request 05/13/2018 losartan Encounter Details Date Type Department Care Team Description 05/13/2018 [facility] Heart Ta Trimble Refill Request Clinic [place] Allan MD (losartan) [address] [place] [address] [place] [address] [phone] Social History Tobacco Use Types Packs/Day Years [...] hypertension documented in this encounter Care Teams Reprographics Associate Relationship Specialty Start Date End Date Mckenzie Mayorga MD PCP - General 07/26/16 12/02/18 [facility] [address] [place] [address] Zen Rousseau MD MD Family Practice 07/31/[address] [address] documented as of this encounter
--- OUTSIDE RECORDS SUMMARY | 2022-04-05 08:01 | XMS_ITS | Encounter Summary ---
:1940 Author Organization [place] Address [address] [facility] [place] [address] Care Team Providers Name Role Phone Zen Rousseau MD Unavailable Mckenzie Mayorga MD Primary Care Provider Encounter Details Date Type Department Care Team Description 06/04/[address] [facility] Heart Hype rlipidemia LDL goal <70; Clinic [place] CAD (coronary artery disease ) [address] [facility] [address] [place] [address] Social History Tobacco Use Types [...] Associated Diagnosis Comme nts LIPID PROFILE Routine 06/04/2017 8:12 AM Hyperlipidemia LDL go al Results for this CDT <70 procedure are in CAD (coronary artery the res ults disease) section. ALT Routine 06/04/2017 8:12 AM Hyperlipidemia LDL goa l Results for this CDT <70 procedure are in CAD (coronary artery the res ults disease) section. documented in this encounter Results ALT (06/04/2017 8:12 AM CDT) P athologist Signature ALT 20 0 - 70 U/L 06/04/2017 [facility] 8:48 AM T HOSPITAL Specimen Anatomical Collection Method Collection Time Receive d Time (Source) Location / / Volume Laterality Blood specimen 06/04/2017 8:12 AM 017 8:16 (specimen) CDT AM CDT Ta Trimble MD LAB - BLOOD ORDERABLES Performing Organization Address City/State/ZIP Code Phon e Number [facility] [address], [place] [address] [place] [address] [address] [place] [address] [address], [facility] [phone] Lipid Profile (06/04/2017 8:12 AM CDT) Analysis Performed At Patho logist Time Signature Cholesterol 156 <200 mg/dL 06/04/2017 [place] 8:48 AM [facility] Triglycerides 135 <150 mg/dL 06/04/2017 [place] 8:48 AM [facility] HDL Cholesterol 62 >39 mg/dL 06/04/2017 [place] 8:48 AM [facility] LDL Cholesterol 67 <100 mg/dL 06/04/2017 [place] Calculated 8:48 AM [facility] Comment: Desirable: <100 mg/dl Non HDL Cholesterol 94 <130 mg/dL 06/04/2017 8:48 AM [facility] Specimen Anatomical Collection Method Collection Time Receive d Time (Source) Location / / Volume Laterality Blood specimen 06/04/2017 8:12 AM 017 8:16 (specimen) CDT AM CDT Ta Trimble MD LAB - BLOOD ORDERABLES Performing Organization Address City/[facility]/ZIP [facility] Phon e Number [facility] [address], [place] [address] [facility] [address], [place] [address] 7, [facility] [phone] documented in this encounter Visit Diagnoses Diagnosis Hyperlipidemia LDL goal <70 Other and unspecified hyperlipidemia CAD (coronary artery disease) Coronary atherosclerosis of unspecified type of vessel, [place] or graft documented in this encounter Care Teams Biostatistics Professor Relationship Specialty Start Date End Date Mckenzie Mayorga MD PCP - General 07/26/16 12/02/18 [facility] [address] [place] [address] Zen Rousseau MD MD [facility] 07/31/[address] [address] documented as of this encounter
--- OUTSIDE RECORDS SUMMARY | 2022-04-05 08:01 | XMS_ITS | Encounter Summary ---
:1940 Author Organization [place] Address [address] [facility] [place] [address] Care Team Providers Name Role Phone Zen Rousseau MD Unavailable Mckenzie Mayorga MD Primary Care Provider Reason for Referral - Closed Specialty Diagnoses / Procedures Referred By Contact Refer red To Contact Diagnoses Hyperlipidemia LDL goal <70 Coronary artery disease involving [place] coronary artery of [place] heart without angina pectoris Ta Trimble MD [address] [place] [address] Referral ID Status Reason Start Date Expiration Date Visits Requ ested Visits Authorized [id number] Closed 12/01/2017 12/01/2018 1 1 Reason for Visit Reason Comments Shortness of Breath Fatigue - Closed Specialty Diagnoses / Procedures Referred By Contact Refer red To Contact Diagnoses Hyperlipidemia LDL goal <70 CAD (coronary artery disease) [address] [address] Referral ID Status Reason Start Date Expiration Date Visits Requ ested Visits Authorized [id number] Closed 06/01/2017 06/01/2018 1 1 Encounter Details Date Type Department Care Team Description 06/04/2017 Office Visit Ta Mcdowell LDL goal <70; Fabio Allan MD Coronary artery disease involving [place] coronary artery of [place] heart without angina pectoris [address] [address] [facility] [address] [address] [place], [place] (Work) [address] [phone] Social History Tobacco Use Types Packs/Day Years [...] Sign Reading Time Taken Comments Blood Pressure 124/78 06/04/2017 1:44 PM CDT Pulse 64 06/04/2017 1:44 PM CDT Temperature - - Respiratory Rate - - Oxygen Saturation - - Inhaled Oxygen Concentration - - Weight 100.5 kg (221 lb 8 oz) 06/04/2017 1:44 PM CDT Height 167.6 cm (5' 6) 06/04/2017 1:44 PM CDT Body Mass Index 35.75 06/04/2017 1:44 PM CDT documented in this encounter Progress Notes Ta Trimble MD - 06/04/2017 2:15 PM CDT HISTORY: Sreedhar Bautista is a pleasant 77-year-old male accompanied by his . He has a history of coronary artery disease, hyperlipidemia, hypertension, and obesity. 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 His last evaluation for coronary disease was a nuclear stress test done in November 2016 which showed normal perfusion and a normal ejection fraction. Mr. Bautista was seen in clinic just over a month ago with complaints of 2-3 months of marked deterioration of exercise capacity and associated dyspnea. At that time he stated he could hardly walk up a flight of steps, and walking half a block on a flat surface was about maximal for him. He was not having PND or orthopnea and was not having any symptoms of angina. Today Mr. Bautista reports that his symptoms have essentially resolved. He thinks his exercise capacityis back to normal and describes being able to walk about a block or block and a half before having to stop and rest because of dyspnea. He acknowledges that he does not do any exercise on a regular basis. He gets outside now and then but usually is sitting on his tractor when he is outside. He admits that he follows a high calorie, high salt, unhealthy diet although he recently saw a dietitian and hehas been trying to avoid carbohydrates and decrease portions in the recent past. He also underwent asleep study done at an outside institution and the results are not yet available. An echocardiogram was done because of an audible murmur. I personally reviewed the images today which are of suboptimal quality because of the patient's large size. The aortic valve is thickened with decreased mobility although the degree of stenosis is difficult to evaluate visually because of poor images. The peak gradient recorded was just 10 mmHg with a calculated valve area of 1.2 cm??. Only grade 1 diastolic dysfunction was appreciated. At the time of our last visit and BNP was checked and wasnormal. The patient denies interim symptoms of palpitations, claudication, significant peripheral edema, PND/orthopnea, or exertional chest, arm, neck, or jaw discomfort. Syncope or near syncope. ASSESSMENT/PLAN: 1. Coronary artery disease. Stenting in 2009, no current angina, recent nuclear scan showing normal ejection fraction with no inducible ischemia. 2. Aortic stenosis. Mild to moderate. Review of the images suggest that his aortic stenosis may be worse than is appreciated by echo gradient values. Since he is currently quite comfortable and able toexercise, we will not pursue further but if his M2 was dramatically worsen we may need to do a DIXON to better evaluate the valve. 3. Dyspnea. Cause is unclear although it is undoubtedly multifactorial including age, obesity, and deconditioning. His echo does not suggest a significant degree of diastolic dysfunction and his BNP was normal. Fortunately, his symptoms have improved. 4. Hyperlipidemia, excellent control, continue current medication 5. Hypertension. Also excellent control, continue current medications. 6. Obesity. We had a long discussion about diet, exercise, and weight loss techniques. He knows whathe needs to do, as does his , but so far he has lacked the willpower to succeed. Thank you for asking me to participate in your patient's care. Please don't hesitate to call if I can be of further assistance. 6 month follow-up will be planned, but he will call if symptoms worsen inthe interim period. Orders Placed This Encounter Procedures ??? Follow-Up with Shingle Packer No orders of the defined types were placed in this encounter. There are no discontinued medications. Encounter Diagnoses Name Primary? ? ? Hyperlipidemia LDL goal <70 ??? Coronary artery disease involving [place] coronary artery of [place] heart without angina pectoris CURRENT MEDICATIONS: Current Outpatient Prescriptions Medication Sig Dispense Refill ??? losartan (COZAAR) 50 MG tablet Take 1 tablet (50 mg) by mouth daily 90 tablet 3 ??? Coenzyme Q10 (COQ-10) 100 MG CAPS Take by mouth daily ??? rosuvastatin (CRESTOR) 20 MG tablet Take 1 tablet (20 mg) by mouth daily 90 tablet 0 ??? VITAMIN D, CHOLECALCIFEROL, PO Take 1,000 Units by mouth daily ??? MAGNESIUM PO Take 250 mg by mouth At Bedtime ??? nitroglycerin (NITROSTAT) 0.[address] 1 tablet (0.4 mg) under the tongue every 5 minutes as needed for chest pain 25 tablet 3 ??? Cyanocobalamin (VITAMIN B 12 PO) Take 1,000 mcg by mouth daily ??? pantoprazole (PROTONIX) 40 MG enteric coated tablet Take 40 mg by mouth every 48 hours ??? metoprolol (LOPRESSOR) 25 MG tablet Take 25 mg by mouth 2 times daily ??? budesonide-formoterol (SYMBICORT) 80-4.5 MCG/ACT inhaler Inhale 2 puffs into the lungs as needed(Only takes when need for cough-NOT Scheduled like prescribed (averages 3x/wk)) ??? aspirin 81 MG tablet Take 81 mg by mouth daily ??? albuterol (2.5 MG/3ML) 0.083% nebulizer solution Take 1 vial by nebulization every 6 hours as needed for shortness of breath / dyspnea or wheezing ALLERGIES Allergies Allergen Reactions ??? Fish Oil Other (See Comments) Bloody noses ??? Penicillins Itching PAST MEDICAL HISTORY: Past Medical History: Diagnosis Date ??? CAD (coronary artery disease) mild/mod disease in RCA, INGRID to OM2 ??? Colon polyps ??? High cholesterol ??? Hypertension ??? Myocardial infarction ??? Past history of myocardial infarction 06/2010 Non QWave ??? Stented coronary artery x1 stent ??? [...] History Problem Relation Age of Onset ??? DIABETES Mother ??? Hypertension Mother ??? Asthma Father ??? Myocardial Infarction Brother ??? CANCER Brother ??? Myocardial Infarction Sister ??? Myocardial Infarction Brother ??? Myocardial Infarction Brother ??? Myocardial Infarction Brother ??? Myocardial Infarction Brother ??? Myocardial Infarction Sister SOCIAL HISTORY: Social History Social History ??? Marital status: Spouse name: N/A ??? Number of children: N/A ??? Years of education: N/A Social History Main Topics ??? Smoking status: Former Smoker ??? Smokeless tobacco: Never Used Comment: quit about 30 years ago ??? Alcohol use Yes Comment: rare ??? Drug use: No ??? Sexual activity: Not Asked Other Topics Concern ??? Caffeine Concern No 5-6 cups daily ??? Special Diet No ??? Exercise No mowing the lawn Social History Narrative Review of Systems: Skin: Positive for bruising Eyes: Positive for glasses ENT: Positive for Respiratory: Positive for dyspnea on exertion Cardiovascular: Positive for;fatigue Gastroenterology: Positive for heartburn;reflux Genitourinary: Positive for nocturia Musculoskeletal: Positive for back pain;foot pain;nocturnal cramping;joint pain Neurologic: Negative Psychiatric: Positive for sleep disturbances Heme/Lymph/Imm: Positive for easy bruising Endocrine: Negative Physical Exam: Vitals: BP 124/78 (BP Location: Right arm, Patient Position: Chair, Cuff Size: Adult Large) Pulse 64 Ht 1.676 m (5' 6) Wt 100.5 kg (221 lb 8 oz) BMI 35.75 kg/m2 Constitutional: cooperative, alert and oriented, well developed, well nourished, in no acute distress obese Skin: warm and dry to the touch Head: normocephalic Eyes: no xanthalasma ENT: no pallor or cyanosis Neck: transmitted murmur Chest: normal breath sounds, clear to auscultation, normal A-P diameter, normal symmetry, normal respiratory excursion, no use of accessory muscles Cardiac: regular rhythm;normal S1 and S2;no S3 or S4 systolic ejection murmur;grade 2;radiation to the carotid Distant heart tones Abdomen: abdomen soft, non-tender, BS normoactive, no mass, no HSM, no bruits obese Vascular: pulses full and equal Extremities and Back: Neurological: no gross motor deficits Recent Lab Results: LIPID RESULTS: Lab Results Component Value Date CHOL 156 06/04/2017 HDL 62 06/04/2017 LDL 67 06/04/2017 TRIG 135 06/04/2017 CHOLHDLRATIO 2.9 06/28/2010 LIVER ENZYME RESULTS: Lab Results Component Value Date AST 19 09/29/2015 ALT 20 06/04/2017 CBC RESULTS: Lab Results Component Value Date WBC 9.1 11/10/2016 RBC 4.49 11/10/2016 HGB 13.4 11/10/2016 HCT 40.8 11/10/2016 MCV 91 11/10/2016 MCH 29.8 11/10/2016 MCHC 32.8 11/10/2016 RDW 13.3 11/10/2016 PLT 178 11/10/2016 BMP RESULTS: Lab Results Component Value Date NA 138 11/10/2016 POTASSIUM 4.1 11/10/2016 CHLORIDE 102 11/10/2016 CO2 30 11/10/2016 ANIONGAP 6 11/10/2016 GLC 81 11/10/2016 BUN 21 11/10/2016 CR 1.00 11/10/2016 GFRESTIMATED 72 11/10/2016 GFRESTBLACK 87 11/10/2016 BETHANY 8.5 11/10/2016 A1C RESULTS: Lab Results Component Value Date A1C 6.1 (A) 02/07/2015 INR RESULTS: Lab Results Component Value Date INR 0.98 06/28/2010 INR 0.91 06/27/2010 Ta Trimble MD, FACC CC Ta Trimble MD [address] [place] [id number] documented in this encounter Plan of Treatment Scheduled Referrals Name Type Priority Associated Diagnoses Order S chedule Follow-Up with Referral Routine Hyperlipidemia LDL goal Ex pected: Shingle Packer <70 12/01/2017 Coronary artery disease (Mick roximate), involving [place] coronary Ex joni: 06/04/2018 artery of [place] heart without angina pectoris documented as of this encounter Visit Diagnoses Diagnosis Hyperlipidemia LDL goal <70 Other and unspecified hyperlipidemia Coronary artery disease involving [place] coronary artery of [place] heart without angina pectoris documented in this encounter Care Teams Mink Rancher Relationship Specialty Start Date End Date Mckenzie Mayorga MD PCP - General 07/26/16 12/02/18 [facility] [address] [place] [address] Zen Rousseau MD MD Family Practice 07/31/[address] [phone] documented as of this encounter
--- OUTSIDE RECORDS SUMMARY | 2022-04-05 08:01 | XMS_ITS | Encounter Summary ---
:1940 Author Organization [place] Address [address] [facility] [place] [address] Care Team Providers Name Role Phone Zen Rousseau MD Unavailable Mckenzie Mayorga MD Primary Care Provider Reason for Referral - Closed Specialty Diagnoses / Procedures Referred By Contact Refer red To Contact Diagnoses Hyperlipidemia LDL goal <70 CAD (coronary artery disease) [facility] [address] [place] [address] Referral ID Status Reason Start Date Expiration Date Visits Requ ested Visits Authorized [id number] Closed 06/01/2017 06/01/2018 1 1 Reason for Visit Reason Onset Date Comments Results 04/24/2017 Echo and NT Pro BNP Encounter Details Date Type Department Care Team Description 04/24/2017 Telephone [facility] Za Traylor R esults (Echo and NT Pro Health Heart RN BNP ) [place] [address] [place] [address] Social History Tobacco Use Types [...] documented as of this encounter Miscellaneous Notes Addendum Note - Za Traylor RN - 05/02/2017 3:58 PM CDT Addended by: ZA TRAYLOR on: 05/02/2017 03:58 PM Modules accepted: Orders, SmartSet Telephone Encounter - Za Traylor RN - 05/02/2017 3:51 PM CDT Reviewed results and recommendations with patient. Patient had no questions. Patient would like to continue his care with Dr. Trimble. Patient will have his fasting labs prior to his visit with Dr. Trimble. Sean [facility] Telephone Encounter - Za Traylor RN - 04/30/2017 4:37 PM CDT Called patient, patient was not available. Results and recommendations were reviewed with Gail (patient's spouse). Gail requested that I review this with patient. I gave Gail my phone number, so patient can call me back tomorrow. Sean [facility] Telephone Encounter - Ta Trimble MD - 04/25/2017 4:20 PM CDT He had severe dyspnea, but it looks like this is not cardiac in origin. Let's get him back in a month to review the situation again. Telephone Encounter - Za Traylor RN - 04/24/2017 5:12 PM CDT Patient was recently seen in clinic. Examination showed distant heart tones, 2/6 systolic murmur radiating into his neck and his symptoms that were suggestive of aortic stenosis. Echo from 2005 commented on sclerosis but not stenosis. Pt reported having dyspnea and fatigue. ------- NT pro BNP is normal Component Latest Ref Rng & Units 04/23/2017 N-Terminal Pro Bnp 0 - 450 pg/mL 179 ---- Echo Interpretation Summary ?? The left ventricle is normal in size. There is mild concentric left ventricular hypertrophy. The visual ejection fraction is estimated at 60-65%. Grade I or early diastolic dysfunction. No regional wall motion abnormalities noted. There is sclerosis, calcification, and restriction of the aortic valve opening compatible with mild aortic stenosis, mean gradient 10 mmHg ---- Message sent to Dr. Trimble to review. Sean [facility] documented in this encounter Plan of Treatment Scheduled Referrals Name Type Priority Associated Diagnoses Order S chedule Follow-Up with Referral Routine Hyperlipidemia LDL goal Ex pected: Campground Attendant <70 06/01/2017 CAD (coronary artery (Approx imate), disease) Expires: 2017 documented as of this encounter Results ALT (06/04/2017 8:12 AM CDT) P athologist Signature ALT 20 0 - 70 U/L 06/04/2017 [facility] 8:48 AM T HOSPITAL Specimen Anatomical Collection Method Collection Time Receive d Time (Source) Location / / Volume Laterality Blood specimen 06/04/2017 8:12 AM 017 8:16 (specimen) CDT AM CDT Ta Trimble MD LAB - BLOOD ORDERABLES Performing Organization Address City/State/[facility] Code Phon e Number [facility] [address], [place] [address] [place] [address] [address] [place] [phone], [facility] [phone] Lipid Profile (06/04/2017 8:12 AM CDT) Analysis Performed At Patho logist Time Signature Cholesterol 156 <200 mg/dL 06/04/2017 [place] 8:48 AM [facility] Triglycerides 135 <150 mg/dL 06/04/2017 [place] 8:48 AM [facility] HDL Cholesterol 62 >39 mg/dL 06/04/2017 [place] 8:48 AM [facility] LDL Cholesterol 67 <100 mg/dL 06/04/2017 [place] Calculated 8:48 AM [facility] Comment: Desirable: <100 mg/dl Non HDL Cholesterol 94 <130 mg/dL 06/04/2017 8:[address] [facility] Specimen Anatomical Collection Method Collection Time Receive d Time (Source) Location / / Volume Laterality Blood specimen 06/04/2017 8:12 AM 017 8:16 (specimen) CDT AM CDT Ta Trimble MD LAB - BLOOD ORDERABLES Performing Organization Address City/[facility]/ZIP [facility] Phon e Number [facility] [address], [place] [address] [facility] [address] [place] [address], [facility] [phone] documented in this encounter Visit Diagnoses Diagnosis CAD (coronary artery disease) - Primary Coronary atherosclerosis of unspecified type of vessel, [place] or graft Hyperlipidemia LDL goal <70 Other and unspecified hyperlipidemia documented in this encounter Care Teams Nurse Reviewer Relationship Specialty Start Date End Date Mckenzie Mayorga MD PCP - General 07/26/16 12/02/18 [facility] [address] [place] [address] Zen Rousseau MD MD Family [facility] 07/31/[address] [phone] documented as of this encounter
--- OUTSIDE RECORDS SUMMARY | 2022-04-05 08:01 | XMS_ITS | Encounter Summary ---
:1940 Author Organization [place] Address [address] [facility] [place] [address] Care Team Providers Name Role Phone Zen Rousseau MD Unavailable Mckenzie Mayorga MD Primary Care Provider Reason for Visit (Routine) - Closed Specialty Diagnoses / Procedures Referred By Contact Refer red To Contact Radiology / Radiology. Diagnoses Epic Order, SB pt, weight is 221 lbs, not diabetic, no asthma. Rh Nuclear Medicine Procedures NM MPI WITH LEXISCAN [address] [place] [address] Phone: Fax: Referral ID Status Reason Start Date Expiration Date Visits Requ ested Visits Authorized [id number] Closed 11/14/2016 11/12/2017 1 1 Encounter Details Date Type Department Care Team Description 11/14/2016 Hospital Encounter [facility] Marcy Coker Shortness of breath; [facility] PERRY Kincaid CAD (coronary artery disease) [address] [facility] [address] [place], [place] [address] [address] [place], [place] [phone] Social History Tobacco Use Types Packs/Day Years Used Date Former Smoker Smokeless Tobacco: Never Used Comments: quit about 30 years ago Alcohol Use Standard Drinks/Week Comments No 0 (1 standard drink = 0.6 oz [...] artery disease needed for chest pain involving ohog[place]ut coronary artery of ohog[place] heart without angina pectoris pantoprazole (PROTONIX) Take 40 mg by mouth 0 40 MG enteric coated every 48 hours tablet VITAMIN D, Take 1,000 Units by 0 CHOLECALCIFEROL, PO mouth daily losartan (COZAAR) 50 MG Take 1 tablet (50 mg) 90 tablet 3 0 11/02/2015 11/19/2016 tabletIndications: by mouth daily Essential hypertension MAGNESIUM PO Take 250 mg by mouth 0 At Bedtime metoprolol (LOPRESSOR) Take 25 mg by mouth 2 0 06/24/2019 25 MG tablet times daily rosuvastatin (CRESTOR) Take 1 tablet (20 mg) 90 tablet 3 11/26/2016 20 MG tabletIndications: by mouth daily Mixed hyperlipidemia, Coronary artery disease involving ohogamiut coronary artery of ohog[place] heart without angina pectoris documented as of this encounter Progress Notes Master Magaña, RN - 11/14/2016 1:22 PM CDT Pre-procedure: Initial vital signs: BP 159/77, HR 66, RR 14 Allergies: reviewed Rhythm: Medications taken within 48 hours of procedure: Last Caffeine: Lung sounds: CTA Health History (COPD, Asthma, etc): Procedure: Lexiscan Reaction/symptoms after receiving Tracy injection: Vital Signs:BP 137/66, HR 90, RR 15 Reversal agent: Post: Resolution of symptoms?: Vital signs: BP 140/67, HR 89, RR 12 Walk: { Return to Radiology documented in this encounter Plan of Treatment Not on filedocumented as of this encounter Procedures Procedure Name Priority Date/Time Associated Comments Diagnosis NM MPI WITH Radiology After 11/14/2016 3:30 Shortness of Results f or this LEXISCAN Discharge PM CDT breath procedure are in CAD (coronary the results artery disease) section. documented in this encounter Results NM Lexiscan stress test (11/14/2016 3:30 PM CDT) Anatomical Region Laterality Modality Chest Nuclear Medicine Specimen (Source) Anatomical Location Collection Method / Collectio n Time Received Time / Laterality Volume Narrative 11/14/2016 3:40 PM CDT GATED MYOCARDIAL PERFUSION SCINTIGRAPHY WITH INTRAVENOUS PHARMACOLOGIC VASODILATATION LEXISCAN -ONE DAY STUDY 11/14/2016 3:30 PM ??DONALDO BAUTISTA ??76 years ??Male ??1940. Indication/Clinical History: 76-year-old male with coronary disease undergoing stress test for dyspnea. In he underwent stents to the OM 2 for inferolateral myocardial infarc tion. Impression 1. ??Myocardial perfusion imaging using single isotope technique demonstrated normal perfusion, no ischem ia or infarct. 2. Gated images demonstrated normal wall motion. ??The left ventricular systolic function is normal, ejection fr action 77%. 3. Compared to the prior study from 2011 , the previous mild basal lateral ischemia is no longer appreciate d . Procedure Pharmacologic stress testing was perform ed with Lexiscan at a rate of 0.08 mg/ml rapid bolus injection, for 15 seconds, 0.4 mg/5ml intravenously. Low-level exercise was no t performed along with the vasodilator infusion. ??The heart rate w as 68 at baseline and kvng to 93 beats per minute during the Lexiscan infusion. The rest blood pressure was 159/77 mmHg and was 142/66 mm Hg during Lexiscan infusion. The patient experienced no sym ptoms ??during the test. Myocardial perfusion imaging was perform ed at rest, approximately 45 minutes after the injection intravenousl y of 10.5 mCi of Tc-99m Myoview. At peak pharmacologic effect, 1 0-20 seconds after Lexiscan, the patient was injected intravenously w ith 30.4 mCi of ??Tc-99m Myoview. The post-stress tomographic fili ging was performed approximately 60 minutes after stress. EKG Findings The resting EKG demonstrated sinus rhyth m, no baseline ST segment abnormalities. The stress EKG demonstrat ed no changes from baseline, negative for ischemia. Tomographic Findings Overall, the study quality is very good . On the stress images, normal perfusion. On the rest images, normal pe rfusion . Gated images demonstrated normal wall motion. The lef t ventricular ejection fraction was calculated to be 77%. TID w as not appreciated. RANDY PERKINS MD Procedure Note Randy Perkins MD - 017 GATED MYOCARDIAL PERFUSION SCINTIGRAPHY WITH INTRAVENOUS PHARMACOLOGIC VASODILATATION LEXISCAN -ONE DAY STUDY 11/14/2016 3:30 PM DONALDO BAUTISTA 76 yea rs Male 1940. Indication/Clinical History: 76-year-old male with coronary disease undergoing stress test for dyspnea. In he underwent stents to the OM 2 for inferolateral myocardial infarc tion. Impression 1. Myocardial perfusion imaging using si ngle isotope technique demonstrated normal perfusion, no ischem ia or infarct. 2. Gated images demonstrated normal wall motion. The left ventricular systolic function is normal, ejection fr action 77%. 3. Compared to the prior study from 2011 , the previous mild basal lateral ischemia is no longer appreciate d . Procedure Pharmacologic stress testing was perform ed with Lexiscan at a rate of 0.08 mg/ml rapid bolus injection, for 15 seconds, 0.4 mg/5ml intravenously. Low-level exercise was no t performed along with the vasodilator infusion. The heart rate was 68 at baseline and kvng to 93 beats per minute during the Lexiscan infusion. The rest blood pressure was 159/77 mmHg and was 142/66 mm Hg during Lexiscan infusion. The patient experienced no sym ptoms during the test. Myocardial perfusion imaging was perform ed at rest, approximately 45 minutes after the injection intravenousl y of 10.5 mCi of Tc-99m Myoview. At peak pharmacologic effect, 1 0-20 seconds after Lexiscan, the patient was injected intravenously w ith 30.4 mCi of Tc-99m Myoview. The post-stress tomographic fili ging was performed approximately 60 minutes after stress. EKG Findings The resting EKG demonstrated sinus rhyth m, no baseline ST segment abnormalities. The stress EKG demonstrat ed no changes from baseline, negative for ischemia. Tomographic Findings Overall, the study quality is very good . On the stress images, normal perfusion. On the rest images, normal pe rfusion . Gated images demonstrated normal wall motion. The lef t ventricular ejection fraction was calculated to be 77%. TID w as not appreciated. RANDY PERKINS MD Marcy Coker PA-C IMG NM ORDERABLES documented in this encounter Visit Diagnoses Diagnosis Shortness of breath CAD (coronary artery disease) Coronary atherosclerosis of unspecified type of vessel, [place] or graft documented in this encounter Administered Medications Inactive Administered Medications - up to 3 most recent administrations Medication Order MAR Action Action Date Dose Rate Site regadenoson (LEXISCAN) 0.4 MG/5ML Given 11/14/2016 1:21 PM CDT 0 .4 mg injection Starting on Sat11/14/16 at 1312, For 1 dose, Master Magaña : rishi overrmarian technetium Tc 99m tetrofosmin 2UD study Given 11/14/2016 2:44 PM CDT 30.4 mCi (MYOVIEW) radioisotope injection 3-42 mC i 3-42 mCi, Intravenous, EVERY 2 HOURS, First dose on Sat11/14/16 at 1200, For 2 doses, Radioisotope, supplied by and administered by Nuclear Medicine. *HW* Given 11/14/2016 11:41 AM CDT 10.5 mCi documented in this encounter Care Teams Box Inspector Relationship Specialty Start Date End Date Mckenzie Mayorga MD PCP - General 07/26/16 12/02/18 [place] [address] [place] [address] Zen Rousseau MD MD Family Practice 07/31/[address] [id number] documented as of this encounter
--- OUTSIDE RECORDS SUMMARY | 2022-04-05 08:01 | XMS_ITS | Encounter Summary ---
:1940 Author Organization [place] Address [address] [facility] [place] [address] Care Team Providers Name Role Phone Zen Rousseau MD Unavailable Senthil Mckeon MD Primary Care Provider [phone] Reason for Visit Reason Onset Date Comments Results 12/04/2018 [facility] Clinic Care Coordination - Follow-up 12/04/2018 Encounter Details Date Type Department Care Team Description 12/04/[address] [facility] Za Davidson R esults ([facility]); Clinic Health Heart RN Care Coordinati on - Care-[place] Follow-up [id number] [facility] [address] [place] [address] Social History Tobacco Use Types [...] Telephone Encounter - Za Davidson RN - 12/10/2018 10:55 AM CDT Results and recommendations were reviewed with patient over the phone. Patient was advised to hydrate and to f/u with PMD. Patient had no questions. Called Dr. Marcano's office. Dr. Marcano/nurse are not in today. Spoke to Larisa BARLOW. Reviewed that patient was prescribed Lasix by Dr. Mckeon. BMP drawn at OV, noted RI. Creatinine went from 1.3 (normal) to 1.52 (high). Reviewed Mali Dowd NP recommendations of limiting use of Lasix and that patient should see Dr. Mckeon and that they may want to draw a f/u BMP. Also informed Theresa that patient is expecting a call from them. Theresa had no questions. TGarbakua RN Telephone Encounter - Mali Dowd APRN CNP - 12/07/2018 8:28 PM CDT Lasix was started by PMD Due to worsening RI, recommend limiting use of Lasix and f/u with pmd Pls call pt to review HANG Leon Telephone Encounter - Za Davidson RN - 12/04/2018 3:48 PM CDT Images from the original note were not included. Component Latest Ref Rng & Units 12/03/2018 Sodium 133 - 144 mmol/L 137 Potassium 3.4 - 5.3 mmol/L 4.1 Chloride 94 - 109 mmol/L 103 Carbon Dioxide 20 - 32 mmol/L 29 Anion Gap 3 - 14 mmol/L 5 Glucose 70 - 99 mg/dL 90 Urea Nitrogen 7 - 30 mg/dL 21 Creatinine 0.66 - 1.25 mg/dL 1.52 (H) GFR Estimate >60 mL/min/1.73:m2 42 (L) GFR Estimate If Black >60 mL/min/1.73:m2 49 (L) Calcium 8.5 - 10.1 mg/dL 9.0 To compare BMP was drawn after patient's office visit yesterday. RI noted. Results were review with patient over the phone. Patient stated he was instructed to take 20 mg of Lasix daily until Saturday (12-07-18). Patient is eating a banana every day. Recommended hydration. Patient was instructed not to take anymore Lasix after Saturday. Patient is aware that I will contact him on Saturday with recommendations. Messaged Mali Dowd STORYBOARD ARTIST to review. TGaandres RN documented in this encounter Plan of Treatment Not on filedocumented as of this encounter Visit Diagnoses Not on filedocumented in this encounter Care Teams Telegrapher Agent Relationship Specialty Start Date End Date Senthil Mckeon MD PCP - General 12/03/18 09/10/21 Zen Rousseau MD MD Family Practice 07/31/[address] [phone] documented as of this encounter
--- OUTSIDE RECORDS SUMMARY | 2022-04-05 08:01 | XMS_ITS | Encounter Summary ---
:1940 Author Organization [place] Address [id number] [place] [address] Care Team Providers Name Role Phone Zen Rousseau MD Unavailable Mckenzie Mayorga MD Primary Care Provider Reason for Visit Reason Comments Shortness of Breath Encounter Details Date Type Department Care Team Description [facility] (Primary D[facility] MD Jerrell Coronary artery disease involving anvik coronary artery of anvik heart without angina pectoris; Heart [address] Dyspnea on exertion [address] [place], [place] [address] [address] [place], [place] [phone] (Wo rk) [address] [phone] Social History Tobacco Use Types Packs/Day Years [...] Sign Reading Time Taken Comments Blood Pressure 114/70 04/23/2017 2:44 PM CDT Pulse 64 04/23/2017 2:44 PM CDT Temperature - - Respiratory Rate - - Oxygen Saturation - - Inhaled Oxygen Concentration - - Weight 100.2 kg (221 lb) 04/23/2017 2:44 PM CDT Height 167.6 cm (5' 6) 04/23/2017 2:44 PM CDT Body Mass Index 35.67 04/23/2017 2:44 PM CDT documented in this encounter Progress Notes Ta Trimble MD - 04/23/2017 2:45 PM CDT HISTORY: Sreedhar Bautista is a pleasant 77-year-old male accompanied by his today. He is a patient of Dr. Castañeda and was seen in clinic by him in January. The patient has a history of coronary artery disease,hyperlipidemia, hypertension, and obesity. 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 His most recent nuclear scan was done in November 2011 showing no evidence of ischemia and a normal ejectionfraction. At the time of his last visit he had no other complaints. Mr. Bautista is here today because of a fairly marked deterioration in symptoms over the last 2-3 months. He states that he becomes extremely tired and short of breath with even minimal activity such as walking up one flight of steps or walking a half a block on a flat surface. He also describes occasional episodes of very sharp chest pain in various areas of his chest lasting only a few seconds and notassociated with activity, shortness of breath, diaphoresis, or nausea. Finally, he has periodic episodes of sweating which occur out of the clear blue at any time. He is not having fevers or chills andhe describes brief episodes of what sounds like a quivering when this happens. He states that he's always been fairly sweaty with any type of activity and this does not appear to have changed. The patient denies PND or orthopnea and states that he sleeps well but has to get up frequently to go to the bathroom. He has not had any exertional chest, arm, neck, or jaw discomfort nor has he experienced any syncope or near-syncope, palpitations, or significant peripheral edema. He does get leg cramps at night but not claudication with activity. ASSESSMENT/PLAN: 1. Coronary artery disease. This patient has a history of previous coronary artery disease with stenting in 2009. No current symptoms of angina. Recent nuclear study showing no inducible ischemia. Symptoms are unlikely to represent ischemia. 2. Suspect aortic stenosis. Today's examination shows distant heart tones but there is a 2/6 systolic murmur radiating into his neck and his symptoms are very suggestive of aortic stenosis. I note thathe had an echocardiogram done in 2005 which commented on sclerosis but not stenosis. I strongly suspect that he has had progression of his aortic valve disease. 3. Dyspnea and fatigue. Suspect that this is secondary to aortic stenosis but also possible that this represents diastolic heart failure. His not appear to be volume overloaded on exam and he does not have PND/orthopnea. I will have BNP checked today. Echo has also been ordered for further evaluation. 4. Hyperlipidemia excellent control, continue current medications 5. Hypertension well controlled, also continue medication. Thank you for asking me to participate in your patient's care. Please don't hesitate to call if I can be of further assistance. Orders Placed This Encounter Procedures ??? N terminal pro BNP outpatient ??? Echocardiogram Orders Placed This Encounter Medications ??? Coenzyme Q10 (COQ-10) 100 MG CAPS Sig: Take by mouth daily There are no discontinued medications. Encounter Diagnoses Name Primary? Rheumatic aortic stenosis Yes ??? Coronary artery disease involving anvik coronary artery of anvik heart without angina pectoris ??? Dyspnea on exertion CURRENT MEDICATIONS: Current Outpatient Prescriptions Medication Sig Dispense Refill ??? Coenzyme Q10 (COQ-10) 100 MG CAPS Take by mouth daily ??? rosuvastatin (CRESTOR) 20 MG tablet Take 1 tablet (20 mg) by mouth daily 90 tablet 0 ??? losartan (COZAAR) 50 MG tablet Take 1 tablet (50 mg) by mouth daily 90 tablet 1 ??? VITAMIN D, CHOLECALCIFEROL, PO Take 1,000 [...] Positive for Respiratory: Positive for dyspnea on exertion;cough;wheezing Cardiovascular: Positive for;chest pain;fatigue Gastroenterology: Positive for heartburn;reflux Genitourinary: Positive for nocturia Musculoskeletal: Positive for back pain;foot pain;nocturnal cramping Neurologic: Negative Psychiatric: Positive for sleep disturbances Heme/Lymph/Imm: Positive for easy bruising Endocrine: Positive for Physical Exam: Vitals: BP 114/70 (BP Location: Right arm, Patient Position: Chair, Cuff Size: Adult Large) Pulse 64 Ht 1.676 m (5' 6) Wt 100.2 kg (221 lb) BMI 35.67 kg/m2 Constitutional: cooperative, alert and oriented, well developed, well nourished, in no acute distress obese Skin: warm and dry to the touch Head: normocephalic Eyes: no xanthalasma ENT: no pallor or cyanosis Neck: carotid pulses are full and equal bilaterally, JVP normal, no carotid bruit, no thyromegaly transmitted murmur Chest: Lungs are clear except for right basilar crackles, rare. No wheezes or rhonchi. Cardiac: regular rhythm;normal S1 and S2;no S3 or S4 systolic ejection murmur;grade 2;radiation to the carotid Distant heart tones Abdomen: Vascular: Reduced lower extremity pulses bilaterally Extremities and Back: Neurological: affect appropriate, oriented to time, person and place;no gross motor deficits Recent Lab Results: LIPID RESULTS: Lab Results Component Value Date CHOL 139 11/11/2016 HDL 56 11/11/2016 LDL 61 11/11/2016 TRIG 109 11/11/2016 CHOLHDLRATIO 2.9 06/28/2010 LIVER ENZYME RESULTS: Lab Results Component Value Date AST 19 09/29/2015 ALT 20 06/05/2016 CBC RESULTS: Lab Results Component Value Date [...] 06/28/2010 INR 0.91 06/27/2010 Ta Trimble MD, [facility] CC Mckenzie Mayorga MD [place] [id number] [place] [address] documented in this encounter Plan of Treatment Not on filedocumented as of this encounter Results N terminal pro BNP outpatient (04/23/2017 3:53 PM CDT) athologist Signature N-Terminal Pro 179 0 - 450 04/23/2017 HYRUM Bnp pg/mL 4:40 PM CDT [facility] Comment: Reference range shown and results flagge d as abnormal are for the outpatient, non acute settings. Establishing a basel ine value for each individual patient is useful for follow-up. Suggested inpatient cut points for confi rming diagnosis of CHF in an acute setting are: >450 pg/mL (age 18 to less than 50) >900 pg/mL (age 50 to less than 75) >1800 pg/mL (75 yrs and older) An inpatient or emergency department NT- proPBNP <300 pg/mL effectively rules out acute CHF, with 99% negative predict stella value. Specimen Anatomical Collection Method Collection Time Receive d Time (Source) Location / / Volume Laterality Blood specimen 04/23/2017 3:53 PM 017 3:58 (specimen) CDT PM CDT Ta Trimble MD LAB - BLOOD ORDERABLES Performing Organization Address City/State/ZIP Code Phon e Number [facility] [address] [place], [place] [address] [facility] [address] [place] [id number] [facility] [phone] documented in this encounter Visit Diagnoses Diagnosis Rheumatic aortic stenosis - Primary Coronary artery disease involving anvik coronary artery of anvik heart without angina pectoris Dyspnea on exertion Other dyspnea and respiratory abnormalit y documented in this encounter Care Teams Police Liaison Officer Relationship Specialty Start Date End Date Mckenzie Mayorga MD PCP - General 07/26/16 12/02/18 [facility] [address] [place], [place] [id number] Zen Rousseau MD MD Family Practice 07/31/12 [facility] [address] [place] [phone] documented as of this encounter
--- OUTSIDE RECORDS SUMMARY | 2022-04-05 08:01 | XMS_ITS | Encounter Summary ---
:1940 Author Organization [place] Address [facility] [place] [address] Care Team Providers Name Role Phone Zen Rousseau MD Unavailable Mckenzie Mayorga MD Primary Care Provider Reason for Visit Reason Onset Date Comments Breathing Problem 11/24/2018 Encounter Details Date Type Department Care Team Description 11/24/2018 Telephone [facility] Za Davidson R N Breathing Problem [facility] Heart [address] [place] [address] Social History Tobacco Use [...] Telephone Encounter - Za Davidson RN - 11/27/2018 3:23 PM CDT Spoke with Sparkle. Patient has increased SOB w/burning sensation in chest. CXR is pending. Troponin was drawn, it was normal. Patient has pitting edema up to bilateral calves. BUN/Creatinine are borderline elevated. Initiated low dose Lasix. Sparkle would like patient to be seen sooner. Spoke with Ryann (referral line) at [facility] in [place]. Ryann will cancel patient's appt with Cardiology through [facility] that was scheduled for next Saturday. No appts available w/Dr. Trimble. Patient agreed to see Mali Dowd NP on 12-03-18 at 350 pm. I will requests records. Sean BARLOW Telephone Encounter - Za Davidson RN - 11/27/2018 12:58 PM CDT Called patient to get an update. Patient saw a provider today. Patient had a CXR and EKG and was told to see a Personal Banking Advisor through [facility]. Patient would like to f/u with our clinic. Called [facility]. Patient saw Sparkle Toney ([facility]ER). Spoke with Lee Ann BARLOW. Requested they faxed us OV notes, EKG and CXR. Lee Ann stated she will have Sparkle call us back with an update. I am wondering if patient needs to be seen sooner than 12-23-18. Sean BARLOW Telephone Encounter - Za Davidson RN - 11/24/2018 12:38 PM CDT Received a call from patient. Patient stated he has been having more shortness of breath with exertion over the last few months. Patient is more shortness of breath with going up and down stairs. Last OV was in . Patient needs to be assessed in clinic. Patient was advised to see his PMD first. If patient is unable to get an appt this week to see his PMD, I did recommend that he call back and make an appt with an UMER. Phone number provided. I did schedule patient an appt to see Dr. Trimble on 12-23-18 (will cancel if not needed). Patient had no other concerns or questions. Sean BARLOW documented in this encounter Plan of Treatment Not on filedocumented as of this encounter Visit Diagnoses Not on filedocumented in this encounter Care Teams Manual Control Auger Press Operator Relationship Specialty Start Date End Date Mckenzie Mayorga MD PCP - General 07/26/16 12/02/18 [facility] [address] [place] [address] Zen Rousseau MD MD Family [facility] 07/31/[address] [phone] documented as of this encounter
--- OUTSIDE RECORDS SUMMARY | 2022-04-05 08:01 | XMS_ITS | Encounter Summary ---
:1940 Author Organization [place] Address [address] [facility] 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 *04/23 [facility] [place] Echo Rscc Procedures ECH COMPLETE [address] [place], [place] [address] Phone: Fax: Referral ID Status Reason Start Date Expiration Date Visits Requ ested Visits Authorized [id number] Closed 04/24/2017 04/24/2018 1 1 Encounter Details Date Type Department Care Team Description 04/24/2017 Hospital Encounter [facility] Ta Trimble Coronary artery disease involving [place] coronary artery of [place] heart without angina pectoris; [facility] MD Jerrell Rheumatic aortic stenosis [facility] [address] [place] [address] [place], [place] [phone] Social History Tobacco Use Types Packs/Day [...] artery disease needed for chest pain involving [place] coronary artery of [place] heart without angina pectoris pantoprazole (PROTONIX) Take 40 mg by mouth 0 40 MG enteric coated every 48 hours tablet VITAMIN D, Take 1,000 Units by 0 CHOLECALCIFEROL, PO mouth daily Coenzyme Q10 (COQ-10) Take by mouth daily 0 04/05/2021 100 MG CAPS losartan (COZAAR) 50 MG Take 1 tablet (50 mg) 90 tablet 1 0 11/19/2016 05/21/2017 tabletIndications: by mouth daily Essential hypertension MAGNESIUM PO Take 250 mg by mouth 0 At Bedtime metoprolol (LOPRESSOR) Take 25 mg by mouth 2 0 06/24/2019 25 MG tablet times daily rosuvastatin (CRESTOR) Take 1 tablet (20 mg) 90 tablet 0 10/25/2020 20 MG tabletIndications: by mouth daily Mixed hyperlipidemia, Coronary artery disease involving [place] coronary artery of [place] heart without angina pectoris documented as of this encounter Plan of Treatment Not on filedocumented as of this encounter Procedures Procedure Name Priority Date/Time Associated Diagnosis Comme nts ECHO COMPLETE WITH Routine 04/24/2017 10:03 AM Coronary artery Results for this OPTISON CDT disease involving procedure are in [place] coronary the results artery of [place] section. heart without angina pectoris Rheumatic aortic stenosis documented in this encounter Results ECHO COMPLETE WITH OPTISON (04/24/2017 10:03 AM CDT) Anatomical Region Laterality Modality Echocardiography Specimen (Source) Anatomical Collection Method Collection Time Re ceived Time Location / / Volume Laterality 04/24/2017 9:26 AM CDT Narrative 04/24/2017 12:37 PM CDT [id number]^MAUREEN^TA^[facility] [address] [place] [address] Name: DONALDO BAUTISTA : 1940 Study Date: 04/24/2017 09:26 AM Age: 77 yrs Gender: Male [place] [facility] [place] For Study: Atherosclerotic heart disease of [place] coronary artery withou Ordering Physician: TA TRIMBLE Referring Physician: Mceknzie Mayorga MD Performed By: Clotilde Moralez RDCS BSA: 2.1 m2 Height: 66 in Weight: 221 lb HR: 68 BP: 114/70 mmHg __ Procedure Complete Echo Adult. Contrast Optison. __ Interpretation Summary The left ventricle is normal in size. There is mild concentric left ventricula r hypertrophy. The visual ejection fraction is estimate d at 60-65%. Grade I or early diastolic dysfunction. No regional wall motion abnormalities no viktoria. There is sclerosis, calcification, and r estriction of the aortic valve opening compatible with mild aortic stenosis, me an gradient 10 mmHg __ Left Ventricle The left ventricle is normal in size. Th ere is mild concentric left ventricular hypertrophy. The visual ejec tion fraction is estimated at 60-65%. Grade I or early diastolic dysfunction. No regional wall motion abnormalities noted. Right Ventricle The right ventricle is normal in size an d function. Atria Normal left atrial size. Right atrial si ze is normal. There is no color Doppler evidence of an atrial shunt. Mitral Valve The mitral valve leaflets are mildly thi ckened. There is trace mitral regurgitation. Tricuspid Valve There is trace tricuspid regurgitation. Normal IVC (1.5-2.5cm) with >50% respiratory collapse; right atrial press ure is estimated at 5-10mmHg. The right ventricular systolic pressure is a pproximated at 17.7 mmHg plus the right atrial pressure. Aortic Valve No aortic regurgitation is present. The mean AoV pressure gradient is 10.4 mmHg. There is sclerosis, calcification, and restriction of the aortic valve opening compatible with mild aortic sten osis. Pulmonic Valve There is no pulmonic valvular regurgitat ion. Vessels The aortic root is normal size. The asce nding aorta is Mildly dilated. Pericardium There is no pericardial effusion. Rhythm Sinus rhythm was noted. __ MMode/2D Measurements & Calculations IVSd: 1.4 cm LVIDd: 5.0 cm LVIDs: 3.4 cm LVPWd: 1.4 cm FS: 31.4 % EDV(Teich): 117.5 ml ESV(Teich): 48.2 ml LV mass(C)d: 291.4 grams LV mass(C)dI: 139.6 grams/m2 Ao root diam: 3.1 cm LA dimension: 4.2 cm asc Aorta Diam: 3.9 cm LA/Ao: 1.3 LVOT diam: 2.1 cm LVOT area: 3.4 cm2 LA Volume (BP): 59.0 ml LA Volume Index (BP): 28.2 ml/m2 Doppler Measurements & Calculations MV E max fredrick: 74.4 cm/sec MV A max fredrick: 88.3 cm/sec MV E/A: 0.84 MV dec time: 0.24 sec Ao V2 max: 232.8 cm/sec Ao max P.0 mmHg Ao V2 mean: 149.0 cm/sec Ao mean P.4 mmHg Ao V2 VTI: 44.6 cm MARTHA(I,D): 1.5 cm2 MARTHA(V,D): 1.2 cm2 LV V1 max P.6 mmHg LV V1 max: 80.5 cm/sec LV V1 VTI: 19.6 cm SV(LVOT): 66.0 ml SI(LVOT): 31.6 ml/m2 PA acc time: 0.07 sec TR max fredrick: 191.1 cm/sec TR max P.7 mmHg MARTHA Index (cm2/m2): 0.71 Lateral E/e': 10.5 Medial E/e': 18.6 __ Report approved by: Morgan Yung 12:37 PM Procedure Note Jimenez Vincent MD - 04/24/2017Form atting of this note might be different from the original. [id number]^MAUREEN^TA^[facility] [address] [place] [id number] Name: DONALDO BAUTISTA : 1940 Study Date: 04/24/2017 09:26 AM Age: 77 yrs Gender: Male [place] [facility] [place] For Study: Atherosclerotic heart disease of [place] coronary artery withou Ordering Physician: TA TRIMBLE Referring Physician: Mckenzie Mayorga MD Performed By: Clotilde Moralez CHELE BSA: 2.1 m2 Height: 66 in Weight: 221 lb HR: 68 BP: 114/70 mmHg __ Procedure Complete Echo Adult. Contrast Optison. __ Interpretation Summary The left ventricle is normal in size. There is mild concentric left ventricula r hypertrophy. The visual ejection fraction is estimate d at 60-65%. Grade I or early diastolic dysfunction. No regional wall motion abnormalities no viktoria. There is sclerosis, calcification, and r estriction of the aortic valve opening compatible with mild aortic stenosis, me an gradient 10 mmHg __ Left Ventricle The left ventricle is normal in size. Th ere is mild concentric left ventricular hypertrophy. The visual ejec tion fraction is estimated at 60-65%. Grade I or early diastolic dysfunction. No regional wall motion abnormalities noted. Right Ventricle The right ventricle is normal in size an d function. Atria Normal left atrial size. Right atrial si ze is normal. There is no color Doppler evidence of an atrial shunt. Mitral Valve The mitral valve leaflets are mildly thi ckened. There is trace mitral regurgitation. Tricuspid Valve There is trace tricuspid regurgitation. Normal IVC (1.5-2.5cm) with >50% respiratory collapse; right atrial press ure is estimated at 5-10mmHg. The right ventricular systolic pressure is a pproximated at 17.7 mmHg plus the right atrial pressure. Aortic Valve No aortic regurgitation is present. The mean AoV pressure gradient is 10.4 mmHg. There is sclerosis, calcification, and restriction of the aortic valve opening compatible with mild aortic sten osis. Pulmonic Valve There is no pulmonic valvular regurgitat ion. Vessels The aortic root is normal size. The asce nding aorta is Mildly dilated. Pericardium There is no pericardial effusion. Rhythm Sinus rhythm was noted. __ MMode/2D Measurements & Calculations IVSd: 1.4 cm LVIDd: 5.0 cm LVIDs: 3.4 cm LVPWd: 1.4 cm FS: 31.4 % EDV(Teich): 117.5 ml ESV(Teich): 48.2 ml LV mass(C)d: 291.4 grams LV mass(C)dI: 139.6 grams/m2 Ao root diam: 3.1 cm LA dimension: 4.2 cm asc Aorta Diam: 3.9 cm LA/Ao: 1.3 LVOT diam: 2.1 cm LVOT area: 3.4 cm2 LA Volume (BP): 59.0 ml LA Volume Index (BP): 28.2 ml/m2 Doppler Measurements & Calculations MV E max fredrick: 74.4 cm/sec MV A max fredrick: 88.3 cm/sec MV E/A: 0.84 MV dec time: 0.24 sec Ao V2 max: 232.8 cm/sec Ao max P.0 mmHg Ao V2 mean: 149.0 cm/sec Ao mean P.4 mmHg Ao V2 VTI: 44.6 cm MARTHA(I,D): 1.5 cm2 MARTHA(V,D): 1.2 cm2 LV V1 max P.6 mmHg LV V1 max: 80.5 cm/sec LV V1 VTI: 19.6 cm SV(LVOT): 66.0 ml SI(LVOT): 31.6 ml/m2 PA acc time: 0.07 sec TR max fredrick: 191.1 cm/sec TR max P.7 mmHg MARTHA Index (cm2/m2): 0.71 Lateral E/e': 10.5 Medial E/e': 18.6 __ Report approved by: Morgan Yung 12:37 PM Ta Trimble MD CV ECHO ORDERABLES documented in this encounter Visit Diagnoses Diagnosis 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 documented in this encounter Administered Medications Inactive Administered Medications - up to 3 most recent administrations Medication Order MAR Action Action Date Dose Rate Site perflutren diluted 1mL to 2mL with Given 04/24/2017 10:15 AM CDT 3 mLs saline (OPTISON) diluted injection 3 mL 3 mL, Intravenous, ONCE, On Sat04/24/17 at 1015, For 1 dose documented in this encounter Care Teams Conference Translator Relationship Specialty Start Date End Date Mckenzie Mayorga MD PCP - General 07/26/16 12/02/18 [place] [id number] [place] [address] Zen Rousseau MD MD Family Practice 07/31/[address] [address] documented as of this encounter
--- OUTSIDE RECORDS SUMMARY | 2022-04-05 08:01 | XMS_ITS | Encounter Summary ---
:1940 Author Organization [place] Address [address] [facility] [place] [address] Care Team Providers Name Role Phone Zen Rousseau MD Unavailable Mckenzie Mayorga MD Primary Care Provider Reason for Visit Reason Comments Hypertension Encounter Details Date Type Department Care Team Description 01/10/2017 Office Visit Edna Aceves disease involving morongo coronary artery of [place] heart without angina pectoris (Primary Dx); [facility] MD Ismael Past history of myocardial infarction; [facility] [id number] [facility] Stented coronary artery; [address] Aortic valve disorder; [address] [place], [place] Essential hypertension; [place] [address] Mixed hyperlipidemia [phone] Social History Tobacco Use Types Packs/Day [...] Sign Reading Time Taken Comments Blood Pressure 128/60 01/10/2017 2:12 PM CDT Pulse 60 01/10/2017 2:12 PM CDT regular Temperature - - Respiratory Rate - - Oxygen Saturation - - Inhaled Oxygen Concentration - - Weight 99.3 kg (218 lb 14.4 oz) 01/10/2017 2:12 PM CDT Height 167.6 cm (5' 6) 01/10/2017 2:12 PM CDT Body Mass Index 35.33 01/10/2017 2:12 PM CDT documented in this encounter Progress Notes Edna Jolley MD - 01/10/2017 3:04 PM CDT PRIMARY CARE PHYSICIAN: Mckenzie Mayorga MD HISTORY OF PRESENT ILLNESS: I again had the pleasure of seeing your patient, Donaldo Bautista, at [facility] for evaluation of coronary artery disease, hyperlipidemia, morbid obesity and hypertension. The patient is a delightful 76-year-old accompanied by his today, status post inferolateral wall myocardial infarction in 06/2010. Coronary angiography demonstrated high-grade stenosis of the second obtuse marginal branch artery, which was then stented using a drug-eluting stent. He had gezd-eh-ddnazndg disease in his other vessels and an ejection fraction of 50%-55%. A nuclear stress test was performed on 11/14 demonstrating no evidence of ischemia or infarction and ejectionfraction of 77%. The basal lateral ischemia was no longer appreciated on this study. The patient denies recurrent angina. He does complain of some diaphoresis for which he was hospitalized overnight and no diagnosis was found. He also has been having some leg cramps and feet pain. I have referred him back to Dr. Mayorga for further evaluation. He notes that he did get an injection in his back for this which did not help his feet. The patient's most recent fasting lipid profile on 11/11/2016 showed total cholesterol 139, HDL 56, LDL 61 and triglycerides 109. This is after we had changed his pravastatinto rosuvastatin with a very nice result. His electrolytes are normal as well. He quit smoking 35 years ago. He has a dry cough and I have suggested that he evaluate this through Dr. Mayorga's office as well. This has only been since this spring. PHYSICAL EXAMINATION: VITAL SIGNS: Current blood pressure is 128/60, pulse is 60 and regular. Weight is 219 pounds, an increase of 1 pound from last year. CHEST: Clear to auscultation. CARDIAC: Regular rate and rhythm, normal S1 and S2 with an S4 gallop. There is no S3 gallop. He has a 2/6 systolic ejection murmur, left lower sternal border to the right upper sternal border. No JVD. Pulses are intact without bruits. ABDOMEN: Obese, soft, nontender without organomegaly. EXTREMITIES: He has a healed cholecystectomy scar. EXTREMITIES: Without cyanosis, clubbing or edema. ASSESSMENT: 1. Donaldo Bautista is a delightful 76-year-old male with numerous cardiovascular risk factors. He quit smoking greater than 35 years ago. He has known coronary artery disease without recurrent angina. Hisnuclear stress test is normal. We continue to treat medically. 2. Hyperlipidemia, currently under excellent control, as we changed pravastatin and niacin to Crestor. This should be repeated in 1 year. 3. Hypertension, currently well-controlled. 4. Evidence of aortic sclerosis. I discussed this with this patient and suggested that an echocardiogram should probably be performed sometime in the next year or so. He is asymptomatic and shows no signs of severe aortic stenosis. We will wait until next year before we consider an echocardiogram. I again discussed with this patient the need for weight loss, low-sodium diet and exercise. Nothing has changed since last year. It is my pleasure to assist in the care of Donaldo Bautista. I will see him again in 1 year. All his questions were answered to his satisfaction. Edna Jolley MD cc: [place] [address] EDNA JOLLEY MD, [facility] [place]: al Name: DONALDO BAUTISTA Account: [id number] : 1940 Service Date: 01/10/2017 Document: [id number] Edna Jolley MD - 01/10/2017 2:15 PM CDT HPI and Plan: See dictation:[id number] Orders Placed This Encounter Procedures ??? Follow-Up with Account Installation Specialist No orders of the defined types were placed in this encounter. There are no discontinued medications. Encounter Diagnoses Name Primary? Coronary artery disease involving morongo coronary artery of morongo heart without angina pectorisYes ??? Past history of myocardial infarction ??? Stented coronary artery ??? Aortic valve disorder ??? Essential hypertension ??? Mixed hyperlipidemia CURRENT MEDICATIONS: Current Outpatient Prescriptions Medication Sig Dispense Refill ??? rosuvastatin (CRESTOR) 20 MG tablet Take 1 tablet (20 mg) by mouth daily 90 tablet 0 ??? losartan (COZAAR) 50 MG tablet Take 1 tablet (50 mg) by mouth daily 90 tablet 1 ??? VITAMIN D, CHOLECALCIFEROL, PO Take 5,000 Units by mouth daily ??? MAGNESIUM PO Take by mouth At Bedtime ??? nitroglycerin (NITROSTAT) [...] Onset ??? DIABETES Mother ??? Hypertension Mother SOCIAL HISTORY: Social History Social History ??? Marital status: Spouse name: N/A ??? Number of children: N/A ??? Years of education: N/A Social History Main Topics ??? Smoking status: Former Smoker ??? Smokeless tobacco: Never Used Comment: quit about 30 years ago ??? Alcohol use No ??? Drug use: No ??? Sexual activity: Not Asked Other Topics Concern ??? Caffeine Concern No 5-6 cups daily ??? Special Diet No ??? Exercise No mowing the lawn Social History Narrative Review of Systems: Skin: Positive for bruising Eyes: Positive for glasses cataract extraction of both eyes ENT: Negative Respiratory: Positive for dyspnea on exertion;cough;wheezing Cardiovascular: Positive for;fatigue Gastroenterology: Positive for heartburn;reflux under control with medication Genitourinary: Positive for nocturia 2-3x per night Musculoskeletal: Positive for back pain;foot pain;nocturnal cramping sees chiropractor Neurologic: Negative Psychiatric: Positive for sleep disturbances Heme/Lymph/Imm: Positive for easy bruising Endocrine: Negative Physical Exam: Vitals: BP 128/60 (BP Location: Right arm, Cuff Size: Adult Large) Pulse 60 Ht 1.676 m (5' 6) Wt 99.3 kg (218 lb 14.4 oz) BMI 35.33 kg/m2 Constitutional: cooperative, alert and oriented, well developed, well nourished, in no acute distress obese Skin: warm and dry to the touch, no apparent skin lesions or masses noted Head: normocephalic, no masses or lesions Eyes: pupils equal and round, conjunctivae and lids unremarkable, sclera white, no xanthalasma, EOMSintact, no nystagmus ENT: no pallor or cyanosis, dentition good Neck: carotid pulses are full and equal bilaterally, JVP normal, no carotid bruit, no thyromegaly Chest: normal breath sounds, clear to auscultation, normal A-P diameter, normal symmetry, normal respiratory excursion, no use of accessory muscles Cardiac: regular rhythm;normal S1 and S2;apical impulse not displaced S4 systolic ejection murmur;grade 2;LLSB;radiation to the RUSB Abdomen: abdomen soft, non-tender, BS normoactive, no mass, no HSM, no bruits Vascular: pulses full and equal, no bruits auscultated Extremities and Back: no deformities, clubbing, cyanosis, erythema observed;no edema Neurological: affect appropriate, oriented to time, person and place;no gross motor deficits CC Mckenzie Mayorga MD [address] [address] documented in this encounter Plan of Treatment Not on filedocumented as of this encounter Visit Diagnoses Diagnosis Coronary artery disease involving morongo coronary artery of morongo heart without angina pectoris - Primary Past history of myocardial infarction Old myocardial infarction Stented coronary artery Postsurgical percutaneous transluminal c oronary angioplasty status Aortic valve disorder Aortic valve disorders Essential hypertension Unspecified essential hypertension Mixed hyperlipidemia documented in this encounter Care Teams Custody Officer Relationship Specialty Start Date End Date Mckenzie Mayorga MD PCP - General 07/26/16 12/02/[address] [address] Zen Rousseau MD MD Family Practice 07/31/[address] [phone] documented as of this encounter
--- OUTSIDE RECORDS SUMMARY | 2022-04-05 08:01 | XMS_ITS | Encounter Summary ---
:1940 Author Organization [place] Address [address] [facility] [place] [address] Care Team Providers Name Role Phone Zen Rousseau MD Unavailable Senthil Mckeon MD Primary Care Provider [phone] Encounter Details Date Type Department Care Team Description 12/03/2018 [facility] hypertension Clinic [address] [place] [address] Social History Tobacco Use [...] Date/Time Associated Diagnosis Comme nts BASIC METABOLIC Routine 12/03/2018 4:15 PM Essential Result s for this PANEL CDT hypertension procedure are i n the results section. documented in this encounter Results (ABNORMAL) Basic metabolic panel (12/03/2018 4:15 PM CDT) Analysis Performed At Located Within [facility] logist Time Signature Sodium 137 133 - 144 12/03/2018 [place] mmol/L 4:48 PM CDT [facility] Potassium 4.1 3.4 - 5.3 12/03/2018 [place] mmol/L 4:48 PM [facility] Chloride 103 94 - 109 12/03/2018 [place] mmol/L 4:48 PM [facility] Carbon Dioxide 29 20 - 32 12/03/2018 [place] mmol/L 4:56 PM [facility] Anion Gap 5 3 - 14 12/03/2018 [place] mmol/L 4:56 PM [facility] Glucose 90 70 - 99 12/03/2018 [place] mg/dL 4:56 PM [facility] Urea Nitrogen 21 7 - 30 12/03/2018 [place] mg/dL 4:56 PM [facility] Creatinine 1.52 (H) 0.66 - 12/03/2018 [place] 1.25 mg/dL 4:56 PM [facility] GFR Estimate 42 (L) >60 12/03/2018 [place] mL/min/{1. 4:56 PM [facility] 73_m2} [facility] Comment: Non GFR Calc Starting 07/22/2018, serum creatinine ba sed estimated GFR (eGFR) will be calculated using the Chronic Kidney [facility] Epidemiology Collaboration (CKD-EPI) equation. GFR Estimate If 49 (L) >60 mL/min/{1.73_m2} 12/03/2018 4: 56 PM [facility] Comment: GFR Calc Starting 07/22/2018, serum creatinine ba sed estimated GFR (eGFR) will be calculated using the [facility] Epidemiology Collaboration (CKD-EPI) equation. Calcium 9.0 8.5 - 10.1 mg/dL 12/03/2018 4:56 PM [facility] Specimen Anatomical Collection Method Collection Time Receive d Time (Source) Location / / Volume Laterality Blood specimen 12/03/2018 4:15 PM 019 4:20 (specimen) CDT PM CDT Mali Dowd APRN, CNP LAB - BLOOD ORDERABLES Performing Organization Address City/State/ZIP Code Phon e Number [facility] [address] [place] [address] [facility] [address] [place], [place] [address] [place] [address] [place] [address] [address], [place] [address], [facility] documented in this encounter Visit Diagnoses Diagnosis Essential hypertension Unspecified essential hypertension documented in this encounter Care Teams Radio Officer Relationship Specialty Start Date End Date Senthil Mckeon MD PCP - General 12/03/18 09/10/21 Zen Rousseau MD MD Family Practice 07/31/[address] [phone] documented as of this encounter
--- OUTSIDE RECORDS SUMMARY | 2022-04-05 08:01 | XMS_ITS | Encounter Summary ---
:1940 Author Organization [place] Address [address] [place] [address] Care Team Providers Name Role Phone Zen Rousseau MD Unavailable Mckenzie Mayorga MD Primary Care Provider Reason for Visit (Routine) - Closed Specialty Diagnoses / Procedures Referred By Contact Refer red To Contact Cardiology Diagnoses Per Dr. 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, [facility] 02-20-2018 Rh E cho cc Procedures ECH COMPLETE [address] [place] [address] Phone: Fax: Referral ID Status Reason Start Date Expiration Date Visits Requ ested Visits Authorized [id number] Closed 04/29/2018 04/29/2019 1 1 Encounter Details Date Type Department Care Team Description 04/29/2018 Hospital Encounter M [facility] [place] Hyperlipidemia LDL goal <70; [facility] MD Jerrell Coronary artery disease involving [place] coronary artery of [place] heart without angina pectoris; [facility] [address] [place] [address] [address] valve [place] enosis [address] [place] [address] Social History Tobacco Use [...] artery disease needed for chest pain involving [place] coronary artery of [place] heart without angina pectoris pantoprazole (PROTONIX) Take 40 mg by mouth 0 40 MG enteric coated every 48 hours tablet VITAMIN D, Take 1,000 Units by 0 CHOLECALCIFEROL, PO mouth daily Coenzyme Q10 (COQ-10) Take by mouth daily 0 04/05/2021 100 MG CAPS losartan (COZAAR) 50 MG Take 1 tablet (50 mg) 90 tablet 3 1 05/13/2018 tabletIndications: by mouth daily Essential hypertension MAGNESIUM PO Take 250 mg by mouth 0 At Bedtime metoprolol (LOPRESSOR) Take 25 mg by mouth 2 0 06/24/2019 25 MG tablet times daily rosuvastatin (CRESTOR) Take 1 tablet (20 mg) 90 tablet 0 10/25/2020 20 MG tabletIndications: by mouth daily Mixed hyperlipidemia, Coronary artery disease involving [place] coronary artery of [place] heart without angina pectoris documented as of this encounter Plan of Treatment Not on filedocumented as of this encounter Procedures Procedure Name Priority Date/Time Associated Diagnosis Comme nts ECHO COMPLETE WITH Routine 04/29/2018 2:46 PM Hyperlipidemia L DL goal Results for this OPTISON CDT <70 procedure are in Coronary artery disease the results involving [place] section. coronary artery of [place] heart without angina pectoris Nonrheumatic aortic valve stenosis documented in this encounter Results ECHO COMPLETE WITH OPTISON (04/29/2018 2:46 PM CDT) Anatomical Region Laterality Modality Echocardiography Specimen (Source) Anatomical Collection Method Collection Time Re ceived Time Location / / Volume Laterality 04/29/2018 1:33 PM CDT Narrative 04/29/2018 2:55 PM CDT [id number]^JEROME^TA^[facility] E[facility] [address] [place] [address] Name: DONALDO BAUTISTA : 1940 Study Date: 04/29/2018 01:33 PM Age: 78 yrs Gender: Male Patient Location: [facility] Reason For Study: , Hyperlipidemia LDL g oal <70, Coronary artery disease involving Ordering Physician: TA TRIMBLE Referring Physician: TA TRIMBLE ORGE Performed By: Ny Fields BSA: 2.1 m2 Height: 66 in Weight: 226 lb HR: 54 BP: 152/77 mmHg __ Procedure Complete Echo Adult. Contrast Optison. __ Interpretation Summary Mild valvular aortic stenosis. Left ventricular systolic function is no rmal. The visual ejection fraction is estimate d at 60-65%. The left ventricle is normal in size. There is mild to moderate concentric lef t ventricular hypertrophy. Right ventricular systolic pressure is e levated, consistent with mild to moderate pulmonary hypertension. Since the last study 04/24/2017, there garcia s been mild progression in the degree of aortic stenosis ( MSG was 10 mmHG, no w 16 mmHg) __ Left Ventricle The left ventricle is normal in size. Th ere is mild to moderate concentric left ventricular hypertrophy. Left ventr icular systolic function is normal. The visual ejection fraction is estimate d at 60-65%. Grade I or early diastolic dysfunction. No regional wall motion abnormalities noted. There is no thrombus seen in the left ventricle. Right Ventricle The right ventricle is normal in structu re, function and size. There is no mass or thrombus in the right ventricle. Atria Normal left atrial size. Right atrial si ze is normal. There is no atrial shunt seen. No thrombus is detected in the lef t atrial appendage. Mitral Valve The mitral valve leaflets appear normal. There is no evidence of stenosis, fluttering, or prolapse. There is no collette ral regurgitation noted. There is no mitral valve stenosis. Tricuspid Valve Normal tricuspid valve. The right ventri cular systolic pressure is approximated at 32.1 mmHg plus the right atrial pressure. Right ventricular systolic pressure is elevated, consisten t with mild to moderate pulmonary hypertension. There is no tricuspid sten osis. Aortic Valve There is moderate trileaflet aortic scle rosis. No aortic regurgitation is present. Mild valvular aortic stenosis. The mean AoV pressure gradient is 16.3 mmHg. Pulmonic Valve Normal pulmonic valve. There is no pulmo sydnee valvular regurgitation. There is no pulmonic valvular stenosis. Vessels The aortic root is normal size. Normal s ize ascending aorta. The IVC is normal in size and reactivity with respiration, suggesting normal central venous pressure. The pulmonary artery is normal size. Pericardium The pericardium appears normal. There is no pleural effusion. Rhythm Sinus rhythm was noted. __ MMode/2D Measurements & Calculations IVSd: 1.4 cm LVIDd: 4.8 cm LVIDs: 3.2 cm LVPWd: 1.5 cm FS: 32.7 % LV mass(C)d: 289.3 grams LV mass(C)dI: 137.3 grams/m2 Ao root diam: 3.6 cm LA dimension: 4.4 cm asc Aorta Diam: 3.3 cm LA/Ao: 1.2 LVOT diam: 2.2 cm LVOT area: 3.8 cm2 LA Volume (BP): 58.4 ml LA Volume Index (BP): 27.7 ml/m2 RWT: 0.62 Doppler Measurements & Calculations MV E max damaso: 83.4 cm/sec MV A max damaso: 99.9 cm/sec MV E/A: 0.83 MV dec time: 0.21 sec Ao V2 max: 262.8 cm/sec Ao max P.6 mmHg Ao V2 mean: 189.4 cm/sec Ao mean P.3 mmHg Ao V2 VTI: 65.4 cm MARTHA(I,D): 1.6 cm2 MARTHA(V,D): 1.5 cm2 LV V1 max P.2 mmHg LV V1 max: 102.3 cm/sec LV V1 VTI: 27.1 cm SV(LVOT): 102.4 ml SI(LVOT): 48.6 ml/m2 PA acc time: 0.08 sec TR max damaso: 283.4 cm/sec TR max P.1 mmHg AV Damaso Ratio (DI): 0.39 MARTHA Index (cm2/m2): 0.74 E/E' av.9 Lateral E/e': 12.6 Medial E/e': 19.2 __ Report approved by: Dr. Ta martinez 04/29/2018 02:55 PM Procedure Note Ta Khan MD - 04/29/2018For matting of this note might be different from the original. [id number]^JEROME^TA^[facility] [address] [place] [address] Name: DONALDO BAUTISTA : 1940 Study Date: 04/29/2018 01:33 PM Age: 78 yrs Gender: Male Patient Location: [facility] Reason For Study: , Hyperlipidemia LDL g oal <70, Coronary artery disease involving Ordering Physician: TA TRIMBLE Referring Physician: TA TRIMBLE Performed By: Ny Fields BSA: 2.1 m2 Height: 66 in Weight: 226 lb HR: 54 BP: 152/77 mmHg __ Procedure Complete Echo Adult. Contrast Optison. __ Interpretation Summary Mild valvular aortic stenosis. Left ventricular systolic function is no rmal. The visual ejection fraction is estimate d at 60-65%. The left ventricle is normal in size. There is mild to moderate concentric lef t ventricular hypertrophy. Right ventricular systolic pressure is e levated, consistent with mild to moderate pulmonary hypertension. Since the last study 04/24/2017, there garcia s been mild progression in the degree of aortic stenosis ( MSG was 10 mmHG, no w 16 mmHg) __ Left Ventricle The left ventricle is normal in size. Th ere is mild to moderate concentric left ventricular hypertrophy. Left ventr icular systolic function is normal. The visual ejection fraction is estimate d at 60-65%. Grade I or early diastolic dysfunction. No regional wall motion abnormalities noted. There is no thrombus seen in the left ventricle. Right Ventricle The right ventricle is normal in structu re, function and size. There is no mass or thrombus in the right ventricle. Atria Normal left atrial size. Right atrial si ze is normal. There is no atrial shunt seen. No thrombus is detected in the lef t atrial appendage. Mitral Valve The mitral valve leaflets appear normal. There is no evidence of stenosis, fluttering, or prolapse. There is no collette ral regurgitation noted. There is no mitral valve stenosis. Tricuspid Valve Normal tricuspid valve. The right ventri cular systolic pressure is approximated at 32.1 mmHg plus the right atrial pressure. Right ventricular systolic pressure is elevated, consisten t with mild to moderate pulmonary hypertension. There is no tricuspid sten osis. Aortic Valve There is moderate trileaflet aortic scle rosis. No aortic regurgitation is present. Mild valvular aortic stenosis. The mean AoV pressure gradient is 16.3 mmHg. Pulmonic Valve Normal pulmonic valve. There is no pulmo sydnee valvular regurgitation. There is no pulmonic valvular stenosis. Vessels The aortic root is normal size. Normal s ize ascending aorta. The IVC is normal in size and reactivity with respiration, suggesting normal central venous pressure. The pulmonary artery is normal size. Pericardium The pericardium appears normal. There is no pleural effusion. Rhythm Sinus rhythm was noted. __ MMode/2D Measurements & Calculations IVSd: 1.4 cm LVIDd: 4.8 cm LVIDs: 3.2 cm LVPWd: 1.5 cm FS: 32.7 % LV mass(C)d: 289.3 grams LV mass(C)dI: 137.3 grams/m2 Ao root diam: 3.6 cm LA dimension: 4.4 cm asc Aorta Diam: 3.3 cm LA/Ao: 1.2 LVOT diam: 2.2 cm LVOT area: 3.8 cm2 LA Volume (BP): 58.4 ml LA Volume Index (BP): 27.7 ml/m2 RWT: 0.62 Doppler Measurements & Calculations MV E max damaso: 83.4 cm/sec MV A max damaso: 99.9 cm/sec MV E/A: 0.83 MV dec time: 0.21 sec Ao V2 max: 262.8 cm/sec Ao max P.6 mmHg Ao V2 mean: 189.4 cm/sec Ao mean P.3 mmHg Ao V2 VTI: 65.4 cm MARTHA(I,D): 1.6 cm2 MARTHA(V,D): 1.5 cm2 LV V1 max P.2 mmHg LV V1 max: 102.3 cm/sec LV V1 VTI: 27.1 cm SV(LVOT): 102.4 ml SI(LVOT): 48.6 ml/m2 PA acc time: 0.08 sec TR max damaso: 283.4 cm/sec TR max P.1 mmHg AV Damaso Ratio (DI): 0.39 MARTHA Index (cm2/m2): 0.74 E/E' av.9 Lateral E/e': 12.6 Medial E/e': 19.2 __ Report approved by: Dr. 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 Aortic valve disorders documented in this encounter Administered Medications Inactive Administered Medications - up to 3 most recent administrations Medication Order MAR Action Action Date Dose Rate Site perflutren diluted 1mL to 2mL with Given 04/29/2018 2:47 PM CDT 3 mLs saline (OPTISON) diluted injection 3 mL 3 mL, Intravenous, ONCE, On Sat04/29/18 at 1500, For 1 dose, [facility] [place] [id number] sodium chloride (PF) 0.9% PF flush 10 mL Given 04/29/2018 2:47 PM CDT 10 mLs 10 mL, Intracatheter, ONCE, On Sat04/29/18 at 1500, For 1 dose documented in this encounter Care Teams Color Blender Relationship Specialty Start Date End Date Mckenzie Mayorga MD PCP - General 07/26/16 12/02/18 [facility] [address] [place] [address] Zen Rousseau MD MD Family Practice 07/31/[address] [phone] documented as of this encounter
--- OUTSIDE RECORDS SUMMARY | 2022-04-05 08:01 | XMS_ITS | Encounter Summary ---
:1940 Author Organization [place] Address [address] [facility] [place] [address] Care Team Providers Name Role Phone Zen Rousseau MD Unavailable Mckenzie Mayorga MD Primary Care Provider Reason for Visit Reason Onset Date Comments Refill Request 05/21/2017 Losartan BORIS 04/21 Encounter Details Date Type Department Care Team Description 05/21/2017 Refill [facility] Heart Abhijit Castañeda, Refill Request (Losartan Clinic [place] MAXWELL BORIS 04/21) [address] [facility] [address] [facility] [address] [place] [address] [place] [phone] (Wo rk) Social History Tobacco Use Types [...] hypertension documented in this encounter Care Teams Aircraft Instrument Tester Relationship Specialty Start Date End Date Mckenzie Mayorga MD PCP - General 07/26/16 12/02/18 [facility] [address] [place] [address] Zen Rousseau MD MD Family Practice 07/31/[address] [phone] documented as of this encounter
--- OUTSIDE RECORDS SUMMARY | 2022-04-05 08:01 | XMS_ITS | Encounter Summary ---
:1940 Author Organization [place] Address [address] [facility] [place] [address] Care Team Providers Name Role Phone Zen Rousseau MD Unavailable Mckenzie Mayorga MD Primary Care Provider Reason for Visit Reason Onset Date Comments post ER follow up 11/21/2016 Encounter Details Date Type Department Care Team Description 11/21/2016 Telephone [facility] Heart Maki Mccormick, post ER follow up Clinic [place] [address] [facility] [phone] (Fa x) [address] [place] [address] Social History Tobacco Use Types Packs/Day Years Used Date Former Smoker Smokeless Tobacco: Never Used Comments: quit about 30 years ago Alcohol Use Standard Drinks/Week Comments No 0 (1 standard drink = 0.6 oz pure alcoho l) Sex Assigned at Date Recorded Not on file documented as of this encounter Miscellaneous Notes Telephone Encounter - Jos Pappas RN - 11/22/2016 8:51 AM CDT Spoke with patients informing her of Dr. Castañeda's response below. verbalized understanding and thanked health technical writer for the call back. Telephone Encounter - Abhijit Castañeda MD - 11/21/2016 11:33 PM CDT Normal nuclear stress test. Normal LVEF. Normal troponins. No other cardiac recommendations at this time. Will see the patient at his OV on 01/10/17. 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 He states the pbx technician assured him that the heart clinic would call within 5 days with a plan. Reviewed with patient that Dr. Castañeda was not consulted for his visit and was not messaged to review his results. Reviewed with patient that his message would be forwarded to Team 4 RNs to review with Dr. Castañeda. Patient is asking for a follow up plan and wonders if he should be seen sooner than current visit 01/10/17. Reviewed withpatient that his stress test did not show any urgent problems, no ischemia and he states he felt better knowing that update. Skin Installer called pt and he states that he excessive sweating and begins to shake. Pt states that he does not have any current chest pain or shortness of breath. Pt would like Dr. Castañeda to be updated with ED notes, and lexiscan and see if he would make any recommendations prior to OV on 01/10/17. Skin Installer offered pt a sooner appt if he is willing to travel to [place]. Pt states that he only goes to [place]. Skin Installer asked pt if he would like to follow up with [facility], but pt states he would like Dr. Castañeda to review first and make recommendations. Skin Installer will route to Dr. Castañeda Chart reviewed: 11/14/16 lexiscan: Impression 1. Myocardial perfusion imaging using single isotope technique demonstrated normal perfusion, no ischemia or infarct. 2. Gated images demonstrated normal wall motion. The left ventricular systolic function is normal, ejection fraction 77%. 3. Compared to the prior study from 2011, the previous mild basal lateral ischemia is no longer appreciated . ED 11/10/16: Sreedhar Bautista is a 76 year old male with a PMH significant for CAD (s/p inferolateral wall CO 06/2010, INGRID placed in 2nd obtuse marginal branch artery w/ [id number] disease in other vessels, EF 50-55%), HLD, morbid obesity, HTN, GERD, who presents with 2 episodes of diaphoresis and sob today. Work up in ED reveals: Troponin x 2 negative. ECG demonstrates sinus bradycardia w/ HR in upper 40s,unchanged from previous strips. CBC w/ diff and BMP unremarkable. BNP 237. CT of chest for PE protocol w/ IV contrast negative for PE. CXR negative for acute abnormality. Patient is being registered to observation for further evaluation and to rule out possible ACS. ?? 1. Acute episodes of diaphoresis and sob: Unclear etiology but cannot rule out stable cardiac sourceat this point. The patient did undergo stress testing w/ lexiscan in 2011 w/ no evidence of ongoing ischemia. He last saw Dr. Castañeda about a year ago and was not having any anginal symptoms at that time; per [facility] note they were considering repeating his nuclear stress test in 2016. Discussed with patient that we do not offer lexiscan stress tests over the weekend and that we could just check anothertroponin to rule out CO then call his cardiology clinic on Saturday to see what Dr. Castañeda would like ordered (stress test vs angiogram). The patient is uncomfortable with discharging tonight because the ER physician already told him that he should be placed on observation overnight. Discussed that wehave ruled out CO with troponins and that we would only be monitoring on telemetry overnight with noother lab draws, but the patient is more comfortable with this plan after discussion with the ER physician. -Telemetry overnight. -Troponin x 2 negative, effectively ruled out. -This may be an anginal equivalent, but we will not be able to complete lexiscan or other nuclear medicine test tomorrow. Would suggest AM provider touch base with Dr. Castañeda or consider touching base with cardiology to see if there is a preference to have this patient undergo some form of stress testing vs angiogram. 2. CAD hx: Continue RIB CHOPPER rosuvastatin 20 mg daily, losartan 50 mg daily, and metoprolol 25 mg BID w/ parameters. 3. HTN: Continue ARB and BB as listed above. 4. HLD: Continue statin as listed above. 5. GERD: Continue protonix 40 mg Q48 hrs. 6. Asthma: Scheduled duonebs while awake. Skin Installer will route to Dr. Castañeda to review pt ED and lexiscan results and see if he would like to make any changes prior to OV appt on 01/10/17. Telephone Encounter - Maki Mccormick RN - 11/21/2016 1:35 PM CDT TRIAGE call from patient, he states he was in the ER for symptoms and had a nuclear study done. He states the pbx technician assured him that the heart clinic would call within 5 days with a plan. Reviewedwith patient that Dr. Castañeda was not consulted for his visit and was not messaged to review his results. Reviewed with patient that his message would be forwarded to Team [address] RNs to review with Dr. Castañeda. Patient is asking for a follow up plan and wonders if he should be seen sooner than current visit 01/10/17. Reviewed with patient that his stress test did not show any urgent problems, no ischemia and he states he felt better knowing that update. Will message Team 4 RNs to review documented in this encounter Plan of Treatment Not on filedocumented as of this encounter Visit Diagnoses Not on filedocumented in this encounter Care Teams Oyster Worker Relationship Specialty Start Date End Date Mckenzie Mayorga MD PCP - General 07/26/16 12/02/18 [facility] [address] [place] [address] Zen Rousseau MD MD Family Practice 07/31/[address] [phone] documented as of this encounter
--- OUTSIDE RECORDS SUMMARY | 2022-04-05 08:01 | XMS_ITS | Encounter Summary ---
:1940 Author Organization [place] Address [facility] [place] [address] Care Team Providers Name Role Phone Zen Rousseau MD Unavailable Senthil Mckeon MD Primary Care Provider Reason for Visit Reason Onset Date Comments Refill Request 06/25/2019 losartan Encounter Details Date Type Department Care Team Description 06/25/2019 Refill [facility] Ta Trimble Refill Request [facility] Heart MD Jerrell (losartan) [address] [address] [address] [place] [address] Social History Tobacco Use Types [...] hypertension documented in this encounter Care Teams Plant Custodian Relationship Specialty Start Date End Date Senthil Mckeon MD PCP - General 12/03/18 09/10/21 Zen Rousseau MD MD Family Practice 07/31/[address] [phone] documented as of this encounter
--- OUTSIDE RECORDS SUMMARY | 2022-04-05 08:01 | XMS_ITS | Encounter Summary ---
:1940 Author Organization [place] Address [address] [facility] [place] [address] Care Team Providers Name Role Phone Zen Rousseau MD Unavailable Mckenzie Mayorga MD Primary Care Provider Encounter Details Date Type Department Care Team Description 04/23/2017 Orders Only [facility] Heart Rheu matic aortic stenosis; Clinic [place] Coronary artery disease invo lving [place] coronary artery of [place] heart without angina pectoris; [address] yspnea on exertion [address] [place] [address] Social History Tobacco Use [...] Procedure Name Priority Date/Time Associated Comments Diagnosis N TERMINAL PRO BNP Routine 04/23/2017 3:53 PM Rheumatic aortic Results for this OUTPATIENT CDT stenosis procedure are in Coronary artery the results disease involving section. 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
--- OUTSIDE RECORDS SUMMARY | 2022-04-05 08:01 | XMS_ITS | Encounter Summary ---
:1940 Author Organization [place] Address [address] [facility] [place] [address] Care Team Providers Name Role Phone Zen Rousseau MD Unavailable Mckenzie Mayorga MD Primary Care Provider Reason for Visit Reason Onset Date Comments Refill Request 11/19/2016 Encounter Details Date Type Department Care Team Description 11/19/2016 Refill [facility] Rona Platt RN Refill Request [address] [place] [address] Social History Tobacco Use Types [...] hypertension documented in this encounter Care Teams Triage Rn Relationship Specialty Start Date End Date Mckenzie Mayorga MD PCP - General 07/26/16 12/02/18 [facility] [address] [place] [address] Zen Rousseau MD MD Family Practice 07/31/12 [facility] [address] [place] [address] documented as of this encounter
--- OUTSIDE RECORDS SUMMARY | 2022-04-05 08:01 | XMS_ITS | Encounter Summary ---
:1940 Author Organization [place] Address [address] [facility] [place] [address] Care Team Providers Name Role Phone Zen Rousseau MD Unavailable Senthil Mckeon MD Primary Care Provider [phone] Encounter Details Date Type Department Care Team Description 12/03/2018 Travel Social History Tobacco Use Types Packs/Day [...] filedocumented in this encounter Care Teams It Technician Relationship Specialty Start Date End Date Senthil Mckeon MD PCP - General 12/03/18 09/10/21 Zen Rousseau MD MD Family Practice 07/31/[address] [address] documented as of this encounter
--- OUTSIDE RECORDS SUMMARY | 2022-04-05 08:01 | XMS_ITS | Encounter Summary ---
:1940 Author Organization [place] Address [address] [place] [address] Care Team Providers Name Role Phone Zen Rousseau MD Unavailable Mckenzie Mayorga MD Primary Care Provider Reason for Referral CV Testing - Closed Specialty Diagnoses / Procedures Referred By Contact Refer red To Contact Diagnoses Hyperlipidemia LDL goal <70 Coronary artery disease involving upper matt[place] coronary artery of upper [place] heart without angina pectoris Nonrheumatic aortic valve stenosis Ankita Trimble, Procedures Echocardiogram Complete [address] [place] [address] 5645 2 Referral ID Status Reason Start Date Expiration Date Visits Requ ested Visits Authorized [id number] Closed 05/06/2018 05/06/2019 1 1 Reason for Visit Reason Comments Coronary Artery Disease 6 month follow up - Closed Specialty Diagnoses / Procedures Referred By Contact Refer red To Contact Diagnoses Hyperlipidemia LDL goal <70 Coronary artery disease involving upper [place] coronary artery of upper [place] heart without angina pectoris Nonrheumatic aortic valve stenosis Ankita Trimble MD [address] [place] [address] 8145 3 Referral ID Status Reason Start Date Expiration Date Visits Requ ested Visits Authorized [id number] Closed 06/01/2018 06/01/2019 1 1 Encounter Details Date Type Department Care Team Description 05/06/2018 Office Visit Ankita Mcdowellt ic aortic valve stenosis (Primary Dx); Fabio Allan MD Hyperlipidemia LDL goal <70; Heart [address] [facility] Coronary artery disease involving upper [place] coronary artery of upper matt[place] heart without angina pectoris; [facility] [place], [place] Essential hypertension [address] [facility] [address] [address] [place], [place] (Work) [address] [phone] Social History Tobacco Use Types Packs/Day Years [...] Sign Reading Time Taken Comments Blood Pressure 126/58 05/06/2018 1:55 PM CDT Pulse 64 05/06/2018 1:55 PM CDT Temperature - - Respiratory Rate - - Oxygen Saturation - - Inhaled Oxygen Concentration - - Weight 101 kg (222 lb 9.6 oz) 05/06/2018 1:55 PM CDT Height 167.6 cm (5' 6) 05/06/2018 1:55 PM CDT Body Mass Index 35.93 05/06/2018 1:55 PM CDT documented in this encounter Progress Notes Ankita Trimble MD - 05/06/2018 1:45 PM CDT HISTORY: Donaldo Bautista is a pleasant 78-year-old gentleman accompanied by his today. He has a history of mild aortic stenosis, coronary artery disease with an inferolateral PR in June 2010 requiring INGRID stenting of his obtuse marginal branch, hyperlipidemia, hypertension, obesity, and sleep apnea using a CPAP. His ejection fraction is normal. Donaldo recently had an echocardiogram which I reviewed with him today. It shows slight progression of the gradient across his aortic valve but no other significant abnormalities. His aortic stenosis remains mild with a mean gradient of 16 mmHg and calculated valve area of 1.5 cm??. The only other abnormality seen on that echo was a mild to moderate degree of concentric left ventricular hypertrophy and borderline elevation of the pulmonary pressures. Today Donaldo reports that he is continuing to do well. He had an active summer. 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 He did not have any difficulties with this although he uses a riding mower and makes while his uses a push mower. He denies exertional chest, arm,neck, or jaw discomfort as well as symptoms of syncope/near syncope, strokelike symptoms, orthostasis, palpitations, or claudication. He does have some mild peripheral edema. Generally, however, he hasno complaints and acknowledges that he is not nearly as active as he should be. ASSESSMENT/PLAN: 1. Coronary artery disease. 8 years post stenting of a single vessel with only mild disease elsewhere within the coronary tree. No further evaluation necessary, no symptoms. 2. Hypertension. Very well controlled on current medications, continue same. 3. Hyperlipidemia. Also well-controlled, continue current medications. 4. Obesity 5. Peripheral edema. We had a long discussion about peripheral edema and I recommended using compression stockings, regular exercise, elevation of the legs, and reduction of sodium intake. We discussedthis extensively. 6. Aortic stenosis. Only mild at this point we will continue to monitor it and I explained that there is nothing we can do to slow down progression but I would not anticipate this becoming severe enough to cause symptoms for likely a minimum of 5 years. Thank you for inviting me to participate in your patient's care. Please do not hesitate to call if Ican be of further assistance.3. Orders Placed This Encounter Procedures ??? Follow-Up with Offal Baler ??? Echocardiogram No orders of the defined types were placed in this encounter. There are no discontinued medications. 10 year ASCVD risk: The ASCVD Risk score ([place] DIANE Jr, et al., 2013) failed to calculate for the following reasons: The 2013 ASCVD risk score is only valid for ages 40 to 79 The patient has a prior MCI or stroke diagnosis Encounter Diagnoses Name Primary? ? ? Hyperlipidemia LDL goal <70 ??? Coronary artery disease involving upper [place] coronary artery of upper matt[place] heart without angina pectoris ??? Nonrheumatic aortic valve stenosis CURRENT MEDICATIONS: Current Outpatient Prescriptions Medication Sig Dispense Refill ??? albuterol (2.5 [...] Take 1,000 mcg by mouth daily ??? losartan (COZAAR) 50 MG tablet Take 1 tablet (50 mg) by mouth daily 90 tablet 3 ??? MAGNESIUM PO Take 250 mg by mouth At Bedtime ??? metoprolol (LOPRESSOR) 25 MG tablet Take 25 mg by mouth 2 times daily ??? nitroglycerin (NITROSTAT) 0.[address] 1 tablet (0.4 mg) under the tongue every 5 minutes as needed for chest pain 25 tablet 3 ??? pantoprazole (PROTONIX) 40 MG enteric coated tablet Take 40 mg by mouth every 48 hours ??? rosuvastatin (CRESTOR) 20 MG tablet Take [...] Narrative Review of Systems: Skin: Positive for bruising;itching Eyes: Positive for glasses ENT: Negative Respiratory: Positive for sleep apnea;CPAP;dyspnea on exertion Cardiovascular: edema;Positive for Gastroenterology: Negative Genitourinary: not assessed Musculoskeletal: Positive for back pain Neurologic: Negative Psychiatric: Positive for sleep disturbances Heme/Lymph/Imm: Positive for easy bruising Endocrine: Negative Physical Exam: Vitals: BP 126/58 (BP Location: Right arm, Patient Position: Sitting, Cuff Size: Adult Large) Pulse 64 Ht 1.676 m (5' 6) Wt 101 kg (222 lb 9.6 oz) BMI 35.93 kg/m2 Constitutional: cooperative, alert and oriented, well developed, well nourished, in no acute distress obese Skin: warm and dry to the touch Head: normocephalic Eyes: no xanthalasma ENT: no pallor or cyanosis Neck: carotid pulses are full and equal bilaterally;JVP normal transmitted murmur Chest: normal breath sounds, clear to auscultation, normal A-P diameter, normal symmetry, normal respiratory excursion, no use of accessory muscles Cardiac: regular rhythm;normal S1 and S2;no S3 or S4 systolic ejection murmur;grade 2;radiation to the carotid Abdomen: abdomen soft;BS normoactive Vascular: pulses full and equal Extremities and [...] Trimble MD, FACC CC Ankita Trimble MD [address] [place] [id number] documented in this encounter Plan of Treatment Not on filedocumented as of this encounter Results ECHO COMPLETE WITH CONTRAST (09/16/2019 2:13 PM MEDICAL LEADER) Anatomical Region Laterality Modality Echocardiography Specimen (Source) Anatomical Collection Method Collection Time Re ceived Time Location / / Volume Laterality 09/16/2019 1:33 PM MEDICAL LEADER Narrative 09/16/2019 2:38 PM MEDICAL LEADER [id number]^JEROME^ANKITA^[facility] Echocardiography Laboratory [address] [place] [address] Name: DONALDO BAUTISTA : 1940 Study Date: 09/16/2019 01:33 PM Age: 79 yrs Gender: Male Patient Location: [facility] Reason For Study: Hyperlipidemia LDL goa l <70, Coronary artery disease involving n Ordering Physician: ANKITA TRIMBLE Referring Physician: Vamsi Mckeon MD Performed By: Mehnaz Chand, [facility] BSA: 2.1 m2 Height: 66 in Weight: 218 lb HR: 56 BP: 158/89 mmHg __ Procedure Complete Echo Adult. Optison ([facility] #[id number]) given intravenously. __ Interpretation Summary The visual [...] sec PI end-d damaso: 89.6 cm/sec AV Daamso Ratio (DI): 0.38 MARTHA Index (cm2/m2): 0.77 E/E' av.3 Lateral E/e': 8.7 Medial E/e': 11.8 __ Report approved by: Darinel Kumar MDon 0 09/16/2019 02:38 PM Procedure Note Darinel Kumar MD - 09/16/2019 [id number]^JEROME^ANKITA^[facility] Echocardiography Laboratory [address] [place] [address] Name: DONALDO BAUTISTA : 1940 Study Date: 09/16/2019 01:33 PM Age: 79 yrs Gender: Male Patient Location: [facility] Reason For Study: Hyperlipidemia LDL goa l <70, Coronary artery disease involving n Ordering Physician: ANKITA TRIMBLE Referring Physician: Vamsi Mckeon MD Performed By: Mehnaz Chand RDCS BSA: 2.1 m2 Height: 66 in Weight: 218 lb HR: 56 BP: 158/89 mmHg __ Procedure Complete Echo Adult. Optison ([facility] #[id number]) given intravenously. __ Interpretation Summary The visual [...] Darinel Kumar MDon 0 09/16/2019 02:38 PM Ankita Trimble MD CV ECHO ORDERABLES documented in this encounter Visit Diagnoses Diagnosis Nonrheumatic aortic valve stenosis - [facility] Aortic valve disorders Hyperlipidemia LDL goal <70 Other and unspecified hyperlipidemia Coronary artery disease involving [place] coronary artery of upper [place] heart without angina pectoris Essential hypertension Unspecified essential hypertension Hyperlipidemia LDL goal <70 Other and unspecified hyperlipidemia Coronary artery disease involving upper [place] coronary artery of upper [place] heart without angina pectoris Nonrheumatic aortic valve stenosis Aortic valve disorders documented in this encounter Care Teams Personnel Quality Assurance Auditor Relationship Specialty Start Date End Date Mckenzie Mayroga MD PCP - General 07/26/16 12/02/18 [facility] [address] [place] [address] Zen Rousseau MD MD Family [facility] 07/31/[address] [address] documented as of this encounter
--- OUTSIDE RECORDS SUMMARY | 2022-04-05 08:01 | XMS_ITS | Encounter Summary ---
:1940 Author Organization [place] Address formerly [facility] [place] [address] Care Team Providers Name Role Phone Zen Rousseau MD Unavailable Mckenzie Mayorga MD Primary Care Provider Reason for Referral - Closed Specialty Diagnoses / Procedures Referred By Contact Refer red To Contact Diagnoses Hyperlipidemia LDL goal <70 Coronary artery disease involving [place] coronary artery of [place] heart without angina pectoris Nonrheumatic aortic valve stenosis Ta Trimble MD [address] [place] [address] 5545 5 Referral ID Status Reason Start Date Expiration Date Visits Requ ested Visits Authorized [id number] Closed 06/01/2018 06/01/2019 1 1 Reason for Visit Reason Comments Coronary Artery Disease - Closed Specialty Diagnoses / Procedures Referred By Contact Refer red To Contact Diagnoses Hyperlipidemia LDL goal <70 Coronary artery disease involving [place] coronary artery of anvik heart without angina pectoris Ta Trimble MD [address] [place] [address] 5545 5 Referral ID Status Reason Start Date Expiration Date Visits Requ ested Visits Authorized [id number] Closed 12/01/2017 12/01/2018 1 1 Encounter Details Date Type Department Care Team Description 12/03/2017 Office Visit Ta Mcdowell Nonrdarellt ic aortic valve stenosis (Primary Dx); Fabio Allan MD Hyperlipidemia LDL goal <70; Heart [address] [place] [address] Coronary artery disease involving [place] coronary artery of [place] heart [place] [address] [facility] [address] [address] [place], [place] (Work) [address] [phone] Social History Tobacco Use Types Packs/Day Years [...] Sign Reading Time Taken Comments Blood Pressure 116/64 12/03/2017 2:09 PM CDT Pulse 60 12/03/2017 2:09 PM CDT Temperature - - Respiratory Rate - - Oxygen Saturation - - Inhaled Oxygen Concentration - - Weight 102.8 kg (226 lb 9.6 oz) 12/03/2017 2:09 PM CDT Height 167.6 cm (5' 6) 12/03/2017 2:09 PM CDT Body Mass Index 36.57 12/03/2017 2:09 PM CDT documented in this encounter Progress Ta Stanford MD - 12/03/2017 2:15 PM CDT HISTORY: Sreedhar Bautista is a pleasant 77-year-old gentleman accompanied by his today. He has a history of coronary artery disease, hyperlipidemia, hypertension, and obesity. He suffered an inferolateral MIin June 2010 resulting in a INGRID to obtuse marginal, mild disease seen elsewhere, normal ejectionfraction. He also suffers from asthma and sleep apnea using CPAP. Echocardiography demonstrates mildto moderate aortic stenosis. Sreedhar again reports today that he is doing well. He is extremely inactive and spends most days sitting without getting out of the house. He admits that this is because he is lazy, not because he has trouble getting out of the house. Yesterday he went out and fertilized his lawn and had to stop because he was tired and short of breath, but he quickly recovered and finished his job. He walks around the block and has to stop once because of dyspnea. He denies PND or orthopnea. He reports that occasionally he will have trouble with severe shortness of breath but when he uses his inhaler his breathing normalizes quickly. With the minimal activity that he undertakes, Sreedhar denies any exertional chest, arm, neck, or jaw discomfort. He has not had problems with syncope or near syncope, orthostasis, strokelike symptoms, PND/orthopnea, or claudication symptoms. He has chronic mild lower extremity edema. ASSESSMENT/PLAN: 1. Coronary artery disease. No exertional angina, mild to moderate disease throughout his coronary tree with stenting of an obtuse marginal branch about 8 years ago. 2. Aortic stenosis. Previous echo showed poor image quality with a calculated mean gradient of 10 mmHg. Patient has not had progression of symptoms of dyspnea or fatigue. Will plan follow-up echo in 6 months. 3. Hyperlipidemia. Good control on current medications, continue. 4. Hypertension. Also well-controlled, continue current medication. 6. Obesity. We once again spent much of our visit talking about weight loss techniques. I suggested that he try reducing the starches in his diet to help minimize his caloric intake over time. Thank you for asking me to participate in your patient's care. Please do not hesitate to call if I can be of further assistance. Orders Placed This Encounter Procedures ??? Follow-Up with Sql Server Developer ??? Echocardiogram No orders of the defined types were placed in this encounter. There are no discontinued medications. Encounter Diagnoses Name Primary? ? ? Hyperlipidemia LDL goal <70 ??? Coronary artery disease involving anvik coronary artery of anvik heart without angina pectoris ??? Nonrheumatic aortic valve stenosis Yes CURRENT MEDICATIONS: Current Outpatient Prescriptions Medication Sig [...] Positive for Respiratory: Positive for dyspnea on exertion;cough;wheezing;sleep apnea;CPAP Cardiovascular: Positive for;fatigue;edema Gastroenterology: Positive for heartburn;reflux Genitourinary: Negative Musculoskeletal: Positive for back pain;foot pain;nocturnal cramping;joint pain Neurologic: Negative Psychiatric: Negative Heme/Lymph/Imm: Positive for easy bruising Endocrine: Positive for Physical Exam: Vitals: BP 116/64 (BP Location: Right arm, Patient Position: Chair, Cuff Size: Adult Large) Pulse 60 Ht 1.676 m (5' 6) Wt 102.8 kg (226 lb 9.6 oz) BMI 36.57 kg/m2 Constitutional: cooperative, alert and oriented, well developed, well nourished, in no acute distress obese Skin: warm and dry to the touch Head: normocephalic Eyes: no xanthalasma ENT: no pallor or cyanosis Neck: transmitted murmur Chest: Lungs are clear except for right basilar crackles, rare. No wheezes or rhonchi. Cardiac: regular rhythm;normal S1 and S2;no S3 or S4 distant heart sounds systolic ejection murmur;grade 2;radiation to the carotid Abdomen: Vascular: Reduced lower extremity pulses bilaterally Extremities and Back: Neurological: no gross motor [...] Trimble MD, FACC CC Ta Trimble MD [address] [place] [id number] documented in this encounter Plan of Treatment Scheduled Referrals Name Type Priority Associated Diagnoses Order S chedule Follow-Up with Referral Routine Hyperlipidemia LDL goal Ex pected: Sql Server Developer <70 06/01/2018 Coronary artery disease (Mick roximate), involving anvik coronary Ex joni: 12/03/2018 artery of anvik heart without angina p ectoris Nonrheumatic aortic valve stenosis documented as of this encounter Visit Diagnoses Diagnosis Nonrheumatic aortic valve stenosis - [facility] Aortic valve disorders Hyperlipidemia LDL goal <70 Other and unspecified hyperlipidemia Coronary artery disease involving anvik coronary artery of anvik heart without angina pectoris documented in this encounter Care Teams Supervisor Pit [employer] Auxiliaries Relationship Specialty Start Date End Date Mckenzie Mayorga MD PCP - General 07/26/16 12/02/18 [facility] [address] [place] [address] Zen Rousseau MD MD Family Practice 07/31/[address] [address] documented as of this encounter
--- OUTSIDE RECORDS SUMMARY | 2022-04-05 08:01 | XMS_ITS | Encounter Summary ---
:1940 Author Organization [place] Address [address] [facility] [place] [address] Care Team Providers Name Role Phone Zen Rousseau MD Unavailable Mckenzie Mayorga MD Primary Care Provider Reason for Visit (Routine) - Closed Specialty Diagnoses / Procedures Referred By Contact Refer red To Contact Cardiology Diagnoses Epic Order, SB pt, weight is 221 lbs, not diabetic, no asthma. [facility] Electrocardiology Procedures EKG STRESS NM [facility] [address] [place], [place] [address] Phone: Referral ID Status Reason Start Date Expiration Date Visits Requ ested Visits Authorized [id number] Closed 11/14/2016 11/14/2017 1 1 Encounter Details Date Type Department Care Team Description 11/14/2016 Hospital Encounter [facility] Marcy Coker , Electrocardiolgy PA-C [address] [facility] [address] [place] [address] [phone] Social History Tobacco Use Types Packs/Day Years [...] artery disease needed for chest pain involving [place] coronary artery of [place] heart without angina pectoris pantoprazole (PROTONIX) Take [...] daily Mixed hyperlipidemia, Coronary artery disease involving [place] coronary artery of [place] heart without angina pectoris documented as of [...] disease undergoing stress test for dyspnea. In 2 010 he underwent stents to the OM 2 [...] ORDERABLES documented in this encounter Visit Diagnoses Not on filedocumented in this encounter Care Teams Doughnut Batter Mixer Relationship Specialty Start Date End Date Mckenzie Mayorga MD PCP - General 07/26/16 12/02/18 [facility] [address] [place] [address] Zen Rousseau MD MD [facility] 07/31/[address] [address] documented as of this encounter
--- OUTSIDE RECORDS SUMMARY | 2022-04-05 08:01 | XMS_ITS | Encounter Summary ---
:1940 Author Organization [place] Address [facility] [place] [address] Care Team Providers Name Role Phone Zen Rousseau MD Unavailable Senthil Mckeon MD Primary Care Provider [phone] Reason for Visit Reason Onset Date Comments Refill Request 06/24/2019 Metoprolol Encounter Details Date Type Department Care Team Description 06/24/2019 Refill [facility] Mali Dowd AP RN Refill Request [facility] Heart [facility] (Metoprolol) [address] [address] [address] [place] [address] [place], [place] [phone] (Wo rk) [address] [phone] Social History Tobacco Use Types Packs/Day Years [...] this encounter Visit Diagnoses Diagnosis Essential hypertension - Primary Unspecified essential hypertension documented in this encounter Care Teams Chemical Operations Specialist Relationship Specialty Start Date End Date Senthil Mckeon MD PCP - General 12/03/18 09/10/21 Zen Rousseau MD MD Family Practice 07/31/[address] [address] documented as of this encounter
--- OUTSIDE RECORDS SUMMARY | 2022-04-05 08:01 | XMS_ITS | Encounter Summary ---
:1940 Author Organization [place] Address [address] [facility] [place] [address] Care Team Providers Name Role Phone Zen Rousseau MD Unavailable Mckenzie Mayorga MD Primary Care Provider Reason for Visit Reason Onset Date Comments Call from D 05/15/2017 Encounter Details Date Type Department Care Team Description 05/15/2017 Telephone [facility] Belinda Davidson RN [facility] [address] [facility] [address] [place] [address] Social History Tobacco Use [...] Telephone Encounter - Za Davidson RN - 05/15/2017 4:15 PM CDT I received a call from Lillian BARLOW from [facility]. Patient saw Dr. Mayorga today, and Dr. Mayorga was wondering why we sent patient to see her. I reviewed with Lillian that patient was complaining of severe dyspnea. Recent echo showed a normal EFand no RWMA. Per Dr. Trimble, severe dyspnea is not from cardiac origin. Patient is going to f/u with Dr. Trimble in a month. We did not refer patient to Dr. Mayorga. However, I did tell patient if he continues to have severe dyspnea, he may want to f/u with Dr. Mayorga to evaluate for other causes. Lillian had no questions. TGaandres BARLOW [facility] documented in this encounter Plan of Treatment Not on filedocumented as of this encounter Visit Diagnoses Not on filedocumented in this encounter Care Teams Yoker Machine Operator Relationship Specialty Start Date End Date Mckenzie Mayorga MD PCP - General 07/26/16 12/02/18 [facility] [address] [place] [address] Zen Rousseau MD MD [facility] 07/31/[address] [id number] documented as of this encounter
--- OUTSIDE RECORDS SUMMARY | 2022-04-05 08:01 | XMS_ITS | Encounter Summary ---
:1940 Author Organization [place] Address [address] [facility] [place] [address] Care Team Providers Name Role Phone Zen Rousseau MD Unavailable Mckenzie Mayorga MD Primary Care Provider Reason for Visit Reason Onset Date Comments Refill Request 11/26/2016 [facility], has annual o/v set for Encounter Details Date Type Department Care Team Description 11/26/2016 Refill [facility] Abhijit Castañeda, Refill Request ([facility] refill, has annual o/v [address] [facility] [address] set for ) [address] [place] [address] [place] [phone] (Wo rk) Social History Tobacco Use [...] Diagnosis Mixed hyperlipidemia Coronary artery disease involving morongo coronary artery of morongo heart without angina pectoris documented in this encounter Care Teams Return Clerk Relationship Specialty Start Date End Date Mckenzie Mayorga MD PCP - General 07/26/16 12/02/18 [facility] [address] [place] [address] Zen Rousseau MD MD Family Practice 07/31/[address] [id number] documented as of this encounter
--- OUTSIDE RECORDS SUMMARY | 2022-04-05 08:01 | XMS_ITS | Encounter Summary ---
:1940 Author Organization [facility] Address [address] [facility] [place] [address] Care Team Providers Name Role Phone Elizabeth Rousseau MD Unavailable Mckenzie Mayorga MD Primary Care Provider Reason for Visit Reason Comments Shortness of Breath Encounter Details Date Type Department Care Team Description 11/10/2016 - Emergency [facility] Nasima Lemus MD [facility] [address] [facility] [address] [id number] CAD (coronary artery disease) (Primary D x); 11/11/2016 Fide Denny MD [facility] [address] [place], [place] [id number] Shortness of breath Dept Shay Carrasco MD [address] [place], [place] [id number] [address] [place] [address] Social History Tobacco Use Types Packs/Day Years Used Date Former Smoker Smokeless Tobacco: Never Used Comments: quit about 30 years ago Alcohol Use Standard Drinks/Week Comments No 0 (1 standard drink = 0.6 oz pure alcoho l) Sex Assigned at Date Recorded Not on file documented as of this encounter Last Filed Vital Signs Vital Sign Reading Time Taken Comments Blood Pressure 138/57 11/11/2016 11:04 AM CDT Pulse 75 11/10/2016 7:20 PM CDT Temperature 35.6 ??C (96.1 ??F) 11/11/2016 11:04 AM CDT Respiratory Rate 17 11/11/2016 11:04 AM CDT Oxygen Saturation 93% 11/11/2016 11:04 AM CDT Inhaled Oxygen Concentration - - Weight 100.2 kg (221 lb) 11/10/2016 8:12 PM CDT Height 167.6 cm (5' 6) 11/10/2016 12:59 PM CDT Body Mass Index 35.67 11/10/2016 12:59 PM CDT documented in this encounter Discharge Summaries Marcy Coker PA-C - 11/11/2016 10:07 AM CDT [facility] Outpatient / Observation Unit Discharge Summary Donaldo Bautista Date of : 1940 Age: [age] year old Date of Admission: 11/10/2016 Date of Discharge: 11/11/2016 Admitting Physician: Shay Carrasco MD Discharge Physician: Marcy Coker PA-C Discharging Service: Hospitalist Primary Provider: Mckenzie Mayorga Primary Care Physician Primary Discharge Diagnoses: Donaldo Bautista was admitted on 11/10/2016 for concerns of acute chest pain. 1. Chest pain: Ruled out ACS. Possible stable cardiac source. Hx of CAD. Recommend outpatient Lexiscan and follow up with PCP. Continue current home meds Secondary Discharge Diagnoses: Past Medical History: Diagnosis Date ??? CAD (coronary artery disease) mild/mod disease in RCA, INGRID to OM2 ??? Colon polyps ??? High cholesterol ??? Hypertension ??? Past history of myocardial infarction 06/2010 Non QWave ??? Stented coronary artery x1 stent ??? Uncomplicated asthma Code Status: Full Code Brief Hospital Summary: Reason for your hospital stay SOB and diaphoresis. Initial work up in ED was unremarkable. Serial troponins were negative. Please refer to initial admission history and physical for further details. Briefly, Donaldo Bautista was admitted on 11/10/2016 for concerns of acute chest pain. Initial work up in the ED did not reveal evidence of STEMI or findings consistent with unstable angina or acute coronary ischemia. Pt was registered to the Observation Unit for further evaluation. Pt ruled out with serial troponins and tele remained unremarkable. Labs were reviewed and significant results addressed. On the day of discharge, pt was pain free, with no complaints of SOB. Medications were reviewed and adjustments made as necessary. Pt is instructed to follow up as below. Significant Lab During Hospitalization: Recent Labs Lab 11/10/16 1314 WBC 9.1 HGB 13.4 HCT 40.8 MCV 91 PLT 178 Recent Labs Lab 11/10/16 1314 NA 138 POTASSIUM 4.1 CHLORIDE 102 CO2 30 ANIONGAP 6 GLC 81 BUN 21 CR 1.00 GFRESTIMATED 72 GFRESTBLACK 87 BETHANY 8.5 Recent Labs Lab 11/10/16 1314 NTBNPI 237 Recent Labs Lab 11/11/16 0630 CHOL 139 HDL 56 LDL 61 TRIG 109 Recent Labs Lab 11/10/16 1832 11/10/16 1314 TROPI <0.015The 99th percentile for upper reference range is 0.045 ug/L. Troponin values in the range of 0.045 - 0.120 ug/L may be associated with risks of adverse clinical events. <0.015The 99thpercentile for upper reference range is 0.045 ug/L. Troponin values in the range of 0.045 - 0.120 ug/L may be associated with risks of adverse clinical events. Significant Imaging During Hospitalization: Recent Results (from the past 48 hour(s)) XR Chest 2 Views Narrative CHEST TWO VIEWS 11/10/2016 2:10 PM HISTORY: Chest pain and shortness of breath. COMPARISON: 09/29/2015. FINDINGS: The heart size is normal. No mediastinal pathology is seen. Again seen is hyperexpansion of the lungs suggesting obstructive pulmonary disease. The lungs are clear. The pulmonary vasculature is normal. No pneumothorax or pleural effusion is seen. There are old healed rib fractures. No other chest wall pathology is seen. I see no definite change since the previous examination. Impression IMPRESSION: Unchanged chest with no acute abnormality seen. ALVERTO MUNIZ MD Chest CT, IV contrast only - PE protocol Narrative CT CHEST PULMONARY EMBOLISM WITH CONTRAST 11/10/2016 3:41 PM HISTORY: Short of breath. TECHNIQUE: Scans obtained from the apices through the diaphragm with IV contrast. 81 mL Isovue-370 injected. Radiation dose for this scan was reduced using automated exposure control, adjustment of the mA and/or kV according to patient size, or iterative reconstruction technique. COMPARISON: Chest x-ray dated 11/10/2016. FINDINGS: Mild peripheral increased interstitial markings are most consistent with mild vascular congestion or atelectasis. Lungs are otherwise grossly clear. No significant nodule, mass, infiltrate, effusion, or pneumothorax is identified. The heart is normal in size. Thoracic aorta is of normal caliber and demonstrates no evidence for dissection or aneurysm. There is nonaneurysmal aortic atherosclerosis. Coronary artery calcifications are also noted. No mediastinal, hilar, or axillary lymphadenopathy is identified. Visualized portions of the thyroid are unremarkable. There is nonaneurysmal atherosclerosis. Visualized portions of the upper abdominal contents are otherwise unremarkable. No aggressive osseous lesions are seen. There are degenerative changes in the spine. The central to third order pulmonary arteries demonstrate no evidence for pulmonary artery embolism. Impression IMPRESSION: 1. Question mild atelectasis versus less likely fibrosis in the peripheral aspects of the lungs. Lungs are otherwise clear. 2. No evidence for pulmonary artery embolism identified. 3. Nonaneurysmal atherosclerosis. ELIZABETH TIPTON MD Pending Results: Unresulted Labs Ordered in the Past 30 Days of this Admission No orders found for last 61 day(s). Consultations This Hospital Stay: No consultations were requested during this admission Discharge Instructions and Follow-Up: Follow-up Appointments Follow-up and recommended labs and tests Follow up with primary care provider, Mckenzie Mayorga, within 7 days for hospital follow- up. No follow up labs or test are needed. Recommend [place] Lexiscan as an outpatient next week. Follow up with PCP for results Pt instructed to follow up with PCP in 7 days and with [employer] Repairer if indicated. Follow-up Labs None Discharge Disposition: Discharged to home Discharge Medications: Current Discharge Medication List CONTINUE these medications which have NOT CHANGED Details VITAMIN D, CHOLECALCIFEROL, PO Take 5,000 Units by mouth daily rosuvastatin (CRESTOR) 20 MG tablet Take 1 tablet (20 mg) by mouth daily Qty: 90 tablet, Refills: 3 Associated Diagnoses: Mixed hyperlipidemia; Coronary artery disease involving [place] coronary artery of [place] heart without angina pectoris losartan (COZAAR) 50 MG tablet Take 1 tablet (50 mg) by mouth daily Qty: 90 tablet, Refills: 3 Associated Diagnoses: Essential hypertension MAGNESIUM PO Take by mouth At Bedtime nitroglycerin (NITROSTAT) 0.[address] 1 tablet (0.4 mg) under the tongue every 5 minutes as needed for chest pain Qty: 25 tablet, Refills: 3 Associated Diagnoses: Coronary artery disease involving [place] coronary artery of [place] heart without angina pectoris Cyanocobalamin (VITAMIN B 12 PO) Take 1,000 mcg by mouth daily pantoprazole (PROTONIX) 40 MG enteric coated tablet Take 40 mg by mouth every 48 hours metoprolol (LOPRESSOR) 25 MG tablet Take 25 mg by mouth 2 times daily budesonide-formoterol (SYMBICORT) 80-4.5 MCG/ACT inhaler Inhale 2 puffs into the lungs as needed (Only takes when need for cough-NOT Scheduled like prescribed (averages 3x/wk)) aspirin 81 MG tablet Take 81 mg by mouth daily albuterol (2.5 MG/3ML) 0.083% nebulizer solution Take 1 vial by nebulization every 6 hours as neededfor shortness of breath / dyspnea or wheezing Allergies: Allergies Allergen Reactions ??? Fish Oil Other (See Comments) Bloody noses ??? Penicillins Itching Condition and Physical on Discharge: Discharge condition: Stable Vitals: Blood pressure 133/60, pulse 75, temperature 96.9 ??F (36.1 ??C), temperature source Oral, resp. rate 16, height 1.676 m (5' 6), weight 100.2 kg (221 lb), SpO2 96 %. 221 lbs 0 oz GENERAL: Comfortable. PSYCH: pleasant, oriented, No acute distress. HEART: RRR. LUNGS: Normal Respiratory effort. EXTREMITIES: Able to ambulate independently. SKIN: Dry to touch, No obvious rash, wound or ulcerations. NEUROLOGIC: Grossly intact Marcy Coker PA-C Associated attestation - Shay Carrasco MD - 11/13/2016 8:53 AM CDT Physician Attestation I, Shay Carrasco, have reviewed and discussed with the advanced practice provider their discharge plan for Donaldo Bautista. I did not participate in a shared visit by interviewing or examining the patient and this should be billed as an advanced practice provider only discharge. Shay Carrasco Date of Service (when I saw the patient): I did not personally see this patient today. documented in this encounter Medications at Time [...] documented as of this encounter Progress Notes Hortencia Gomez RN - 11/11/2016 4:24 AM CDT Problem: Discharge Planning Goal: Discharge Planning (Adult, OB, Behavioral, Peds) Outcome: Completed Date Met: 11/10/16 PRIMARY DIAGNOSIS: CHEST PAIN/shortness of breath OUTPATIENT/OBSERVATION GOALS TO BE MET BEFORE DISCHARGE: ? 1. Negative Serial Troponin Yes 2. Resolution of chest pain Yes 3. Pain status: Pain free. 4. Negative stress test N/A 5. Stable vital signs Yes 6. ADLs back to baseline? Yes 7. Activity and level of assistance: Ambulating independently. 8. Barriers to discharge noted No 9.Interpretation of rhythm per field service poultry technician: SR/B VSS. Pt resting in bed, repositioning self. Denies pain, n/v, SOB/RAHMAN. PIV SL. Tolerating diet, PO meds. Voiding without difficulty. Alert and oriented, able to make needs known. Continue to monitor. Hortencia Gomez RN - 11/11/2016 2:19 AM CDT Problem: Discharge Planning Goal: Discharge Planning (Adult, OB, Behavioral, Peds) Outcome: Completed Date Met: 11/10/16 PRIMARY DIAGNOSIS: CHEST PAIN/shortness of breath OUTPATIENT/OBSERVATION GOALS TO BE MET BEFORE DISCHARGE: ? 1. Negative Serial Troponin Yes 2. Resolution of chest pain Yes 3. Pain status: Pain free. 4. Negative stress test N/A 5. Stable vital signs Yes 6. ADLs back to baseline? Yes 7. Activity and level of assistance: Ambulating independently. 8. Barriers to discharge noted No 9.Interpretation of rhythm per field service poultry technician: SR VSS. Pt resting in bed, denies pain, SOB/RAHMAN. Ambulating ad yovany. Voiding, not saving. Alert and oriented, able to make needs known. Continue to monitor. documented in this encounter H&P Notes Karen Khan PA-C - 11/10/2016 7:18 PM CDT [facility] Outpatient / Observation Unit History and Physical Exam Donaldo Bautista Date of : 1940 Age: [age] year old Date of Admission: 11/10/2016 Primary care provider: Mckenzie Mayorga Assessment: Donaldo Bautista is a 76 year old male with a PMH significant for CAD (s/p inferolateral wall AZ 06/2010, INGRID placed in 2nd obtuse marginal branch artery w/ [id number] disease in other vessels, EF 50-55%), HLD, [...] evaluation and to rule out possible ACS. 1. Acute episodes of diaphoresis and sob: Unclear etiology but cannot rule out stable cardiac sourceat this point. The patient did undergo stress testing w/ lexiscan in 2011 w/ no evidence of ongoing ischemia. He last saw Dr. Castañeda about a year ago and was not having any anginal symptoms at that time; per [facility] note they were considering repeating his nuclear stress test in 2016. Discussed with patient that we do not offer lexiscan stress tests over the weekend and that we could just check anothertroponin to rule out AZ then call his cardiology clinic on Saturday to see what Dr. Castañeda would like ordered (stress test vs angiogram). The patient is uncomfortable with discharging tonight because the ER physician already told him that he should be placed on observation overnight. Discussed that wehave ruled out AZ with troponins and that we would only [...] testing vs angiogram. 2. CAD hx: Continue NEMATOLOGIST rosuvastatin 20 mg daily, losartan 50 mg daily, and metoprolol 25 mg BID w/ parameters. 3. HTN: Continue ARB and BB as listed above. 4. HLD: Continue statin as listed above. 5. GERD: Continue protonix 40 mg Q48 hrs. 6. Asthma: Scheduled duonebs while awake. Plan: 1. [facility] to Observation 2. Continue telemetry 3. Serial troponins complete. Check fasting lipids 4. Outpatient stress testing vs angiogram, to discuss w/ cardiology. 5. Cont Aspirin EC 81 mg po daily 6. Blood pressure control 7. Morphine and nitroglycerine PRN for pain 8. Cardiac conscientious diet, can have caffeine as no stress testing ordered. 9. DVT prophylaxis: pt at low risk, encourage ambulation 10. Code Status: FULL 11. Dispo: Anticipate < 2 evening stay Chief Complaint: Chest Pain History of Present Illness: Donaldo Bautista is a 76 year old male with a PMH significant for CAD (s/p inferolateral wall AZ 06/2010, INGRID placed in 2nd obtuse marginal branch artery w/ [id number] disease in other vessels, EF 50-55%), HLD, morbid obesity, HTN, GERD, who presents after 2 episodes of diaphoresis and sob today. The patient does have a known history of CAD, had an AZ in 2009 w/ 1 INGRID placement. He is followed byDr. Castañeda and last saw him approximately a year ago, no anginal symptoms noted at that time but there was consideration for a possible nuc med stress test sometime in 2017. The patient reports that around 11:00 AM he developed diaphoresis, shaking, and shortness of breath while he was sitting that lasted for under 5 minutes. He had another episode just after that around 11:10 that resolved on its own as well. He denies any chest pain, palpitations, nausea, or vomiting with these episodes. He reports that this has been happening maybe once or twice a week for the past few months. He says these episodes are never associated with chest pain and are not consistently associated with physical exertion. He does recall that he he had one episode of central chest pain a week ago after walking on the treadmill for 7 minutes, relieved with rest and he did not get on the treadmill again after that. He has been able to do light housework without chest pain. He quit smoking 35 years ago. Family history includes 6 siblings that have suffered an AZ or CAD. Work up in ED reveals: Troponin x 2 negative. ECG demonstrates sinus bradycardia w/ HR in upper 40s,unchanged from previous strips. CBC w/ diff and BMP unremarkable. BNP 237. CT of chest for PE protocol w/ IV contrast negative for PE. CXR negative for acute abnormality. The patient received 1 L IV NSand 243 mg po aspirin. He has been asymptomatic since his two 5-minute episodes around 11 AM today. Cardiac risk factors: previous AZ, abnormal lipids, hypertension, obesity and sedentary life style Past Medical History: Past Medical History: Diagnosis Date ??? CAD (coronary artery disease) mild/mod disease in RCA, INGRID to OM2 ??? Colon polyps ??? High cholesterol ??? Hypertension ??? Past history of myocardial infarction 06/2010 Non QWave ??? Stented coronary artery x1 stent ??? Uncomplicated asthma Past Surgical History: Past Surgical History: Procedure Laterality Date ??? ARTHROSCOPY SHOULDER DECOMPRESSION Right 10/18/2014 Procedure: ARTHROSCOPY SHOULDER DECOMPRESSION; Surgeon: Shamar Butterfield MD; Location: [facility] OR ??? CARDIAC SURGERY 2009 x1 stent ??? COLECTOMY 2007 2007; partial colectomy 1 foot ??? COLONOSCOPY ??? CORONARY ANGIOGRAPHY ADULT ORDER 06/2010 INGRID to OM2, RCA mild/mod disease Social History: Social History Social History ??? Marital status: Spouse name: N/A ??? Number of children: N/A ??? Years of education: N/A Occupational History ??? Not on file. Social History Main Topics ??? Smoking status: Former Smoker ??? Smokeless tobacco: Never Used Comment: quit about 30 years ago ??? Alcohol use No ??? Drug use: No ??? Sexual activity: Not on file Other Topics Concern ??? Caffeine Concern No 5-6 cups daily ??? Special Diet No ??? Exercise No mowing the lawn Social History Narrative Family History: Family History Problem Relation Age of Onset ??? DIABETES Mother ??? Hypertension Mother Allergies: Allergies Allergen Reactions ??? Fish Oil Other (See Comments) Bloody noses ??? Penicillins Itching Medications: Prior to Admission medications Medication Sig Last Dose Taking? Auth Provider VITAMIN D, CHOLECALCIFEROL, PO Take 5,000 Units by mouth daily 11/10/2016 at Unknown time Yes Unknown,Entered By History rosuvastatin (CRESTOR) 20 MG tablet Take 1 tablet (20 mg) by mouth daily 11/10/2016 at am Yes Abhijit Castañeda MD losartan (COZAAR) 50 MG tablet Take 1 tablet (50 mg) by mouth daily 11/10/2016 at am Yes Abhijit Castañeda MD MAGNESIUM PO Take by mouth At Bedtime 11/09/2016 at hs Yes Reported, Patient nitroglycerin (NITROSTAT) 0.[address] 1 tablet (0.4 mg) under the tongue every 5 minutes as needed for chest pain has not used Yes Abhijit Castañeda MD Cyanocobalamin (VITAMIN B 12 PO) Take 1,000 mcg by mouth daily 11/10/2016 at Unknown time Yes Reported, Patient pantoprazole (PROTONIX) 40 MG enteric coated tablet Take 40 mg by mouth every 48 hours 11/10/2016 at am Yes Reported, Patient metoprolol (LOPRESSOR) 25 MG tablet Take 25 mg by mouth 2 times daily 11/10/2016 at Unknown time Yes Reported, Patient budesonide-formoterol (SYMBICORT) 80-4.5 MCG/ACT inhaler Inhale 2 puffs into the lungs as needed (Only takes when need for cough-NOT Scheduled like prescribed (averages 3x/wk)) 11/08/2016 Yes Reported, Patient aspirin 81 MG tablet Take 81 mg by mouth daily 11/10/2016 at Unknown time Yes Reported, Patient albuterol (2.5 MG/3ML) 0.083% nebulizer solution Take 1 vial by nebulization every 6 hours as neededfor shortness of breath / dyspnea or wheezing more than month Yes Reported, Patient Review of Systems: A Comprehensive greater than 10 system review of systems was carried out. Pertinent positives and negatives are noted above. Otherwise negative for contributory information. Physical Exam: Blood pressure 170/90, pulse (!) 49, temperature 97.6 ??F (36.4 ??C), temperature source Temporal, resp. rate 20, height 1.676 m (5' 6), weight 95.3 kg (210 lb), SpO2 90 %. GENERAL: healthy, alert and no distress EYES: Eyes grossly normal to inspection, extraocular movements - intact, and PERRL HENT: ear canals- normal; TMs- normal; Nose- normal; Mouth- no ulcers, no lesions NECK: no tenderness, no adenopathy, no asymmetry, no masses, no stiffness; thyroid- normal to palpation RESP: lungs clear to auscultation - no rales, no rhonchi, no wheezes CV: regular rates and rhythm and no murmur, click or rub ABDOMEN: soft, no tenderness, no hepatosplenomegaly, no masses, normal bowel sounds MS: extremities- no gross deformities noted, no edema SKIN: no suspicious lesions, no rashes NEURO: strength and tone- normal, sensory exam- grossly normal, mentation- intact, speech- normal, reflexes- symmetric PSYCH: Alert and oriented times 3; coherent speech. Affect is normal. Data: EKG demonstrates: sinus bradycardia, normal axis, normal intervals, no acute ST/T changes c/w ischemia, no LVH by voltage criteria. Results for orders placed or performed during the hospital encounter of 11/10/16 (from the past 24 hour(s)) EKG 12-lead, tracing only Result Value Ref Range Interpretation ECG Click View Image link to view waveform and result CBC with platelets differential Result Value Ref Range WBC 9.1 4.0 - 11.0 10e9/L RBC Count 4.49 4.4 - 5.9 10e12/L Hemoglobin 13.4 13.3 - 17.7 g/dL Hematocrit 40.8 40.0 - 53.0 % MCV 91 78 - 100 fl MCH 29.8 26.5 - 33.0 pg MCHC 32.8 31.5 - 36.5 g/dL RDW 13.3 10.0 - 15.0 % Platelet Count 178 150 - 450 10e9/L Diff Method Automated Method % Neutrophils 53.9 % % Lymphocytes 33.7 % % Monocytes 8.8 % % Eosinophils 1.7 % % Basophils 0.8 % % Immature Granulocytes 1.1 % Nucleated RBCs 0 0 /100 Absolute Neutrophil 4.9 1.6 - 8.3 10e9/L Absolute Lymphocytes 3.1 0.8 - 5.3 10e9/L Absolute Monocytes 0.8 0.0 - 1.3 10e9/L Absolute Eosinophils 0.2 0.0 - 0.7 10e9/L Absolute Basophils 0.1 0.0 - 0.2 10e9/L Abs Immature Granulocytes 0.1 0 - 0.4 10e9/L Absolute Nucleated RBC 0.0 Basic metabolic panel Result Value Ref Range Sodium 138 133 - 144 mmol/L Potassium 4.1 3.4 - 5.3 mmol/L Chloride 102 94 - 109 mmol/L Carbon Dioxide 30 20 - 32 mmol/L Anion Gap 6 3 - 14 mmol/L Glucose 81 70 - 99 mg/dL Urea Nitrogen 21 7 - 30 mg/dL Creatinine 1.00 0.66 - 1.25 mg/dL GFR Estimate 72 >60 mL/min/1.7m2 GFR Estimate If Black 87 >60 mL/min/1.7m2 Calcium 8.5 8.5 - 10.1 mg/dL Troponin I (now) Result Value Ref Range Troponin I ES 0.000 - 0.045 ug/L <0.015 The 99th percentile for upper reference range is 0.045 ug/L. Troponin values in the range of 0.045 - 0.120 ug/L may be associated with risks of adverse clinical events. BNP Result Value Ref Range N-Terminal Pro BNP Inpatient 237 0 - 1800 pg/mL XR Chest 2 Views Narrative CHEST TWO VIEWS 11/10/2016 2:10 PM HISTORY: Chest pain and shortness of breath. COMPARISON: 09/29/2015. FINDINGS: The heart size is normal. No mediastinal pathology is seen. Again seen is hyperexpansion of the lungs suggesting obstructive pulmonary disease. The lungs are clear. The pulmonary vasculature is normal. No pneumothorax or pleural effusion is seen. There are old healed rib fractures. No other chest wall pathology is seen. I see no definite change since the previous examination. Impression IMPRESSION: Unchanged chest with no acute abnormality seen. ALVERTO MUNIZ MD Chest CT, IV contrast only - PE protocol Narrative CT CHEST PULMONARY EMBOLISM WITH CONTRAST 11/10/2016 3:41 PM HISTORY: Short of breath. TECHNIQUE: Scans obtained from the apices through the diaphragm with IV contrast. 81 mL Isovue-370 injected. Radiation dose for this scan was reduced using automated exposure control, adjustment of the mA and/or kV according to patient size, or iterative reconstruction technique. COMPARISON: Chest x-ray dated 11/10/2016. FINDINGS: Mild peripheral increased interstitial markings are most consistent with mild vascular congestion or atelectasis. Lungs are otherwise grossly clear. No significant nodule, mass, infiltrate, effusion, or pneumothorax is identified. The heart is normal in size. Thoracic aorta is of normal caliber and demonstrates no evidence for dissection or aneurysm. There is nonaneurysmal aortic atherosclerosis. Coronary artery calcifications are also noted. No mediastinal, hilar, or axillary lymphadenopathy is identified. Visualized portions of the thyroid are unremarkable. There is nonaneurysmal atherosclerosis. Visualized portions of the upper abdominal contents are otherwise unremarkable. No aggressive osseous lesions are seen. There are degenerative changes in the spine. The central to third order pulmonary arteries demonstrate no evidence for pulmonary artery embolism. Impression IMPRESSION: 1. Question mild atelectasis versus less likely fibrosis in the peripheral aspects of the lungs. Lungs are otherwise clear. 2. No evidence for pulmonary artery embolism identified. 3. Nonaneurysmal atherosclerosis. ELIZABETH TIPTON MD Troponin I Result Value Ref Range Troponin I ES 0.000 - 0.045 ug/L <0.015 The 99th percentile for upper reference range is 0.045 ug/L. Troponin values in the range of 0.045 - 0.120 ug/L may be associated with risks of adverse clinical events. Karen Khan PA-C Associated attestation - Shay Carrasco MD - 11/13/2016 1:41 PM CDT Physician Attestation I, Shay Carrasco, have reviewed and discussed with the advanced practice provider their history, physical and plan for Donaldo Bautista. I did not participate in a shared visit by interviewing or examining the patient and this should be billed as an advanced practice provider only visit. Shay Carrasco Date of Service (when I saw the patient): I did not personally see this patient today. documented in this encounter ED Notes Eliza Lopez RN - 11/10/2016 7:24 PM CDT Observation Brochure and Video Pt notified of observation status based on provider's order. Observation Brochure was given and video watched. Eliza Lopez RN Tiny Troncoso RN - 11/10/2016 1:01 PM CDT Presents with shortness of breath and diaphoresis with any exertion beginning this am about 1130. Denies any chest pain but has a cardiac history involving stent placements. Patient alert and oriented x3. Airway, breathing and circulation intact. Mamadou Red, Fide Ramirez MD - 11/10/2016 12:56 PM CDT History Chief Complaint: Shortness of Breath Diaphoresis HPI Donaldo Bautista is a 76 year old male, with a history of HTN, HLD, CAD, and AZ, currently on baby aspirin for previous history of AZ, S/P stent placement, who presents with shortness of breath and diaphoresis. He states that over the past several months he will intermittently have an episode of diaphoresis, lasting approximately 15-20 minutes, associated with diffuse tremors and shortness of breath. These are not necessarily exertional and he does not think they are associated with eating. These typically self resolve after he sits down and relaxes. Today, when he was sitting in his truck, he had two of these episodes. As this was different, he felt that he should come to the ED for evaluation. Of note, he had recently finished mowing the lawn and raking the grass up and was asymptomatic during this. Today, during this activity, he had no increase in shortness of breath, chest pain, lightheadedness, nausea, or vomiting. With the previous episodes of diaphoresis, he similarly has not had increased chest pain. He does note that overall in the past weeks he has had increased dyspnea with exertion.He is unable to tell me how much he could walk or climb previously before developing symptoms, but over the past three weeks he has only been able to walk down to the end of the driveway and back before becoming symptomatic. He also notes two times where he did develop centralized chest pain, once during a slow short walk with his as well as once while doing a 7 minute walk on the treadmill. Both of these were within the past 1-2 weeks. Currently, he feels well and denies any symptoms. His onlyother new complaint is left anterior knee pain that began 4-5 days ago. He denies any new leg swelling, recent long travel in a car or airplane. He has a history of a previous stent following an AZ, but states during that time he had severe chest pain, not associated with diaphoresis. He also notes that his initial ER evaluation was normal at that time and he was told he was not having a heart attack, but during that hospitalization his troponin trended upwards, prompting the stent. He notes taking one baby aspirin earlier this morning. Allergies: Fish oil Penicillins: itching Medications: Crestor Losartan Magnesium Protonix Metoprolol Aspirin Symbicort Albuterol Nitroglycerin Past Medical History: CAD Colon polyps HTN HLD AZ Stented coronary artery Asthma Past Surgical History: Arthroscopy shoulder decompression, right Cardiac stent placement Colectomy Colonoscopy Coronary angiography Family History: Mother: HTN, DM Social History: Marital status: Former smoker, negative for alcohol use. The patient presents with and daughter. Review of Systems Constitutional: Positive for diaphoresis. Respiratory: Positive for shortness of breath. Cardiovascular: Negative for chest pain and leg swelling. Musculoskeletal: Positive for left knee pain. All other systems reviewed and are negative. Physical Exam First Vitals: BP: 146/70 Pulse: (!) 49 Heart Rate: 49 Temp: 97.6 ??F (36.4 ??C) Resp: 20 Height: 167.6 cm (5' 6) Weight: 95.3 kg (210 lb) SpO2: 99 % Physical Exam Constitutional: He is cooperative. HENT: Right Ear: Tympanic membrane normal. Left Ear: Tympanic membrane normal. Mouth/Throat: Oropharynx is clear and moist and mucous membranes are normal. Eyes: Conjunctivae are normal. Neck: Normal range of motion. Cardiovascular: Regular rhythm and normal heart sounds. Pulmonary/Chest: Effort normal and breath sounds normal. Abdominal: Soft. Normal appearance and bowel sounds are normal. There is no rebound and no guarding. Musculoskeletal: Normal range of motion. Lymphadenopathy: He has no cervical adenopathy. Neurological: He is alert. Skin: Skin is warm and dry. Psychiatric: He has a normal mood and affect. Emergency Department Course ECG @ 1311 Indication: SOB Rate 47 bpm. LA interval 168 ms. QRS duration 88 ms. QT/QTc 448/396 ms. P-R-T axes 0. Notes: Sinus bradycardia. Time read 1352 Imaging: Radiographic findings were communicated with the patient who voiced understanding of the findings. Chest XR per radiology: Unchanged chest with no acute abnormality seen. Chest CT, with contrast, PE protocol, per radiology: 1. Question mild atelectasis versus less likely fibrosis in the peripheral aspects of the lungs. Lungs are otherwise clear. 2. No evidence for pulmonary artery embolism identified. 3. Nonaneurysmal atherosclerosis. Laboratory: CBC: WBC 9.1 (WNL) HGB 13.4 (WNL) PLT 178 (WNL) BMP: Creatinine 1.00 (WNL) Glucose 81 (WNL) Rest WNL 1314: Troponin I: <0.015 (WNL) 1832: Troponin I: <0.015 (WNL) BNP: 237 (WNL) Interventions: 1355: Aspirin, 243 mg, PO 1535: Normal Saline, 1000 mL, IV injection ED Course: Nursing notes and vitals reviewed. I performed an exam of the patient as documented above. 173: I spoke to Karen Khan PA-C, of the hospitalist service about admitting the patient. We discussed our options including discharge with close follow up for Lexiscan versus admission. She will talk to the patient. 183: Patient has agreed to admission. He will be admitted to Dr. Carrasco's service. Findings and plan explained to the Patient who consents to admission. Discussed the patient with Karen Khan PA-C, for Dr. Carrasco, who will admit the patient to a telemetry bed for further monitoring,evaluation, and treatment. Impression & Plan Medical Decision Making: Donaldo Bautista is a 76 year old male, with a personal history of cardiac disease, who presents aftera number of spells of shortness of breath, diaphoresis, and tremulousness as well as recent exertional chest pain. His spells could be a cardiac equivalent. His description sounds suspicious for hypoglycemia, but this would be very unlikely in the absence of use of hypoglycemia medications. I think they could represent cardiac arrhythmia. Initial EKG and troponin are unremarkable. As noted, he mentions fairly rapidly progressive dyspnea which becomes so severe he has trouble walking up the driveway.He is borderline hypoxemic on room air. Chest x-ray was unremarkable so I proceeded to CT pulmonary angiogram. This shows no evidence of PE, no other significant abnormality. I discussed the case with Karen Khan of the hospitalist service. We will place the patient on observation for further evaluation and monitoring as well as anticipated provocative testing, though it sounds like this will likelybe done as an outpatient given that cardiology has previously recommended a Lexiscan for evaluation. Diagnosis: ICD-10-CM 1. Shortness of breath R06.02 Troponin I Disposition: Admission for further evaluation, monitoring, and treatment. I, Adriane Duffy, am serving as a scribe on 11/10/2016 at 2:29 PM to personally document services performed by Fide Marin MD, based on my observations and the provider's statements to me. Fide Marin MD 11/15/16 1435 documented in this encounter Miscellaneous Notes Plan of Care - Divine Gottlieb RN - 11/11/2016 11:18 AM CDT Problem: Discharge Planning Goal: Discharge Planning (Adult, OB, Behavioral, Peds) Outcome: Adequate for Discharge Date Met: 11/11/16 OBSERVATION patient END time: 1118 Plan of Care - Divine Gottlieb RN - 11/11/2016 11:14 AM CDT Problem: Discharge Planning Goal: Discharge Planning (Adult, OB, Behavioral, Peds) Patient's After Visit Summary was reviewed with patient and Patient verbalized understanding of After Visit Summary, recommended follow up and was given an opportunity to ask questions. Discharge medications sent home with patient/family: n/a Discharged with spouse Pharmacy-Admission Medication History - Yelitza Rodriguez RPH - 11/11/2016 10:11 AM CDT Phoned [facility] and confirmed, pt on metoprolol tartarate 25mg po bid. NEMATOLOGIST med list in EPIC is correct. Plan of Care - Divine Gottlieb RN - 11/11/2016 9:00 AM CDT Problem: Discharge Planning Goal: Discharge Planning (Adult, OB, Behavioral, Peds) PRIMARY DIAGNOSIS: CHEST PAIN/shortness of breath OUTPATIENT/OBSERVATION GOALS TO BE MET BEFORE DISCHARGE: 1. Negative Serial Troponin Yes 2. Resolution of chest pain Yes 3. Pain status: Pain free. 4. Negative stress test N/A 5. Stable vital signs Yes 6. ADLs back to baseline? Yes 7. Activity and level of assistance: Ambulating independently. 8. Barriers to discharge noted No 9.Interpretation of rhythm per field service poultry technician: SR/B Denies sweating, chest pain, and SOB throughout hospital stay. States he is baseline. Looking forward to go home. Will do outpatient lexiscan.. Plan of Care - Dulce Sanchez RN - 11/10/2016 8:43 PM CDT Problem: Discharge Planning Goal: Discharge Planning (Adult, OB, Behavioral, Peds) Outcome: Completed Date Met: 11/10/16 PRIMARY DIAGNOSIS: CHEST PAIN/shortness of breath OUTPATIENT/OBSERVATION GOALS TO BE MET BEFORE DISCHARGE: 1. Negative Serial Troponin Yes 2. Resolution of chest pain Yes 3. Pain status: Pain free. 4. Negative stress test N/A 5. Stable vital signs Yes 6. ADLs back to baseline? Yes 7. Activity and level of assistance: Ambulating independently. 8. Barriers to discharge noted No 9.Interpretation of rhythm per field service poultry technician: sr Patient denies shortness of breath or diaphoresis at this time. His states that he has had these sweating events for the last 6 months and they do not know what is causing that. Family is here. Did instruct patient not to drink any caffeine so that if MD does order any cardiac tests the tests will be able to be completed without delay. Will continue to monitor and assess. Pharmacy-Admission Medication History - Anne Wright [facility] - 11/10/2016 6:57 PM CDT Admission medication history interview status for this patient is complete. See [facility] admission navigator for allergy information, prior to admission medications and immunization status. Medication history interview source(s):Patient Medication history resources (including written lists, pill bottles, clinic record):EPIC list/patient list Primary pharmacy:[facility] ([facility]) Changes made to NEMATOLOGIST medication list: Added: Vitamin D Changed: B12 to 1000mcg, *Patient does NOT take Symbicort on a regular basis. Only when needed (about 3x/wk) *Most lists (including patient's) have metoprolol 25mg as regular release BID. 10/18 [facility] list saysXL (patient didn't know and pharmacy closed) It was left at regular release. Could possibly be clarified tomorrow Actions taken by pharmacist (provider contacted, etc):None Additional medication history information:None Medication reconciliation/reorder completed by provider prior to medication history? No For patients on insulin therapy: NO Prior to Admission medications Medication Sig Last Dose Taking? Auth Provider VITAMIN D, CHOLECALCIFEROL, PO Take 5,000 Units by mouth daily 11/10/2016 at Unknown time Yes Unknown,Entered By History rosuvastatin (CRESTOR) 20 MG tablet Take 1 tablet (20 mg) by mouth daily 11/10/2016 at am Yes Abhijit Castañeda MD losartan (COZAAR) 50 MG tablet Take 1 tablet (50 mg) by mouth daily 11/10/2016 at am Yes Abhijit Castañeda MD MAGNESIUM PO Take by mouth At Bedtime 11/09/2016 at hs Yes Reported, Patient nitroglycerin (NITROSTAT) 0.[address] 1 tablet (0.4 mg) under the tongue every 5 minutes as needed for chest pain has not used Yes Abhijit Castañeda MD Cyanocobalamin (VITAMIN B 12 PO) Take 1,000 mcg by mouth daily 11/10/2016 at Unknown time Yes Reported, Patient pantoprazole (PROTONIX) 40 MG enteric coated tablet Take 40 mg by mouth every 48 hours 11/10/2016 at am Yes Reported, Patient metoprolol (LOPRESSOR) 25 MG tablet Take 25 mg by mouth 2 times daily 11/10/2016 at Unknown time Yes Reported, Patient budesonide-formoterol (SYMBICORT) 80-4.5 MCG/ACT inhaler Inhale 2 puffs into the lungs as needed (Only takes when need for cough-NOT Scheduled like prescribed (averages 3x/wk)) 11/08/2016 Yes Reported, Patient aspirin 81 MG tablet Take 81 mg by mouth daily 11/10/2016 at Unknown time Yes Reported, Patient albuterol (2.5 MG/3ML) 0.083% nebulizer solution Take 1 vial by nebulization every 6 hours as neededfor shortness of breath / dyspnea or wheezing more than month Yes Reported, Patient documented in this encounter Plan of Treatment Not on filedocumented as of this encounter Procedures Procedure Name Priority Date/Time Associated Comments Diagnosis LIPID REFLEX TO Routine 11/11/2016 6:30 AM Shortness of breath Results for this DIRECT LDL PANEL CDT procedure a re in the results section. TROPONIN I STAT 11/10/2016 6:32 PM Shortness of breath Re sults for this CDT procedure are i n the results section. CT CHEST PULMONARY STAT 11/10/2016 3:41 PM Res ults for this EMBOLISM W CONTRAST CDT procedur e are in the results section. XR CHEST 2 VIEWS STAT 11/10/2016 2:10 PM Resul ts for this CDT procedure are i n the results section. CBC WITH PLATELETS & STAT 11/10/2016 1:14 PM R esults for this DIFFERENTIAL CDT procedure are i n the results section. TROPONIN I STAT 11/10/2016 1:14 PM Results f or this CDT procedure are i n the results section. NT PROBNP INPATIENT STAT 11/10/2016 1:14 PM Re sults for this CDT procedure are i n the results section. BASIC METABOLIC PANEL STAT 11/10/2016 1:14 PM Results for this CDT procedure are i n the results section. EKG 12-LEAD, TRACING STAT 11/10/2016 1:11 PM R esults for this ONLY CDT procedure are i n the results section. documented in this encounter Results NM [...] 3. Compared to the prior study from 2012 , the previous mild basal lateral ischemia [...] MD Marcy Coker PA-C IMG NM ORDERABLES Lipid panel reflex to direct LDL (11/11/2016 6:30 AM CDT) Analysis Performed At Patho logist Time Signature Cholesterol 139 <200 mg/dL [facility] Triglycerides 109 <150 mg/dL [facility] HDL Cholesterol 56 >39 mg/dL [facility] LDL Cholesterol 61 <100 mg/dL [facility] Comment: Desirable: <100 mg/dl Non HDL Cholesterol 83 <130 mg/dL [facility] Specimen Anatomical Collection Method Collection Time Receive d Time (Source) Location / / Volume Laterality Blood specimen 11/11/2016 6:30 AM 017 6:42 (specimen) CDT AM CDT Karen Orly Khan PA-C LAB - BLOOD ORDERABLES Performing Organization Address [facility] Phon e Number M [facility] [address], [place] [address] [facility] [address] [place], [place] [address], [facility] [phone] Troponin I (11/10/2016 6:32 PM CDT) [facility] Method Time Signature Troponin I ES <0.015 .000 [facility] The 99th percentile for uppe r reference range is 0.045 ug/L. ??Troponin values in 0.045 RIDGES the range of 0.045 - 0.120 ug/L may be associated wit h risks of adverse ug/L HOSPITAL clinical events. Specimen Anatomical Collection Method Collection Time Receive d Time (Source) Location / / Volume Laterality Blood specimen 11/10/2016 6:32 PM 017 6:43 (specimen) CDT PM CDT Karen Orly Khan PA-C LAB - BLOOD ORDERABLES Performing Organization Address [facility] Phon e Number M [facility] [address], [place] [address] [place] [address] [address] [place], [place] [address], [facility] [phone], IV contrast only - PE protocol (11/10/2016 3:41 PM CDT) Anatomical Region Laterality Modality Chest, SUBRAD CT BODY, UMP CT CHEST Comp uted Tomography Specimen (Source) Anatomical Location Collection Method / Collectio n Time Received Time / Laterality Volume Impressions 11/10/2016 5:55 PM CDT IMPRESSION: 1. Question mild atelectasis versus less likely fibrosis in the peripheral aspects of the lungs. Lungs a re otherwise clear. 2. No evidence for pulmonary artery embo lism identified. 3. Nonaneurysmal atherosclerosis. ELIZABETH TIPTON MD Narrative 11/10/2016 5:[address] CHEST PULMONARY EMBOLISM WITH CONTRAST ??11/10/2016 3:41 PM HISTORY: ??Short of breath. TECHNIQUE: Scans obtained from the apice s through the diaphragm with IV contrast. 81 mL Isovue-370 injected. Radiation dose for this scan was reduced using automated exposure control, adjustment of the mA and/or kV according to patient size, or iterative reconstruction technique. COMPARISON: ??Chest x-ray dated 11/10/2016 . FINDINGS: ??Mild peripheral increased in terstitial markings are most consistent with mild vascular congestion or atelectasis. Lungs are otherwise grossly clear. No significant nodule, mass, infiltrate, effusion, or pneumothorax is identified. The heart is normal in size. Thoracic ao rta is of normal caliber and demonstrates no evidence for dissection or aneurysm. There is nonaneurysmal aortic atherosclerosis. Co ronary artery calcifications are also noted. No mediastinal, hilar, or axillary lymph adenopathy is identified. Visualized portions of the thyroid are u nremarkable. There is nonaneurysmal atherosclerosis. Visualized portions of the upper abdominal contents are otherwise u nremarkable. No aggressive osseous lesions are seen. There are dege nerative changes in the spine. The central to third order pulmonary art eries demonstrate no evidence for pulmonary artery embolism. Procedure Note Elizabeth Tipton MD - 11/10/2016Form atting of this note might be different from the original. CT CHEST PULMONARY EMBOLISM WITH CONTRAS T 11/10/2016 3:41 PM HISTORY: Short of breath. TECHNIQUE: Scans obtained from the apice s through the diaphragm with IV contrast. 81 mL Isovue-370 injected. Radiation dose for this scan was reduced using automated exposure control, adjustment of the mA and/or kV according to patient size, or iterative reconstruction technique. COMPARISON: Chest x-ray dated 11/10/2016. FINDINGS: Mild peripheral increased inte rstitial markings are most consistent with mild vascular congestion or atelectasis. Lungs are otherwise grossly clear. No significant nodule, mass, infiltrate, effusion, or pneumothorax is identified. The heart is normal in size. Thoracic ao rta is of normal caliber and demonstrates no evidence for dissection or aneurysm. There is nonaneurysmal aortic atherosclerosis. Co ronary artery calcifications are also noted. No mediastinal, hilar, or axillary lymph adenopathy is identified. Visualized portions of the thyroid are u nremarkable. There is nonaneurysmal atherosclerosis. Visualized portions of the upper abdominal contents are otherwise u nremarkable. No aggressive osseous lesions are seen. There are dege nerative changes in the spine. The central to third order pulmonary art eries demonstrate no evidence for pulmonary artery embolism. IMPRESSION: 1. Question mild atelectasis versus less likely fibrosis in the peripheral aspects of the lungs. Lungs a re otherwise clear. 2. No evidence for pulmonary artery embo lism identified. 3. Nonaneurysmal atherosclerosis. ELIZABETH TIPTON MD Fide Marin MD IMG CT ORDERABLES XR Chest 2 Views (11/10/2016 2:10 PM CDT) Anatomical Region Laterality Modality Chest Computed Radiography Specimen (Source) Anatomical Location Collection Method / Collectio n Time Received Time / Laterality Volume Impressions 11/10/2016 2:40 PM CDT IMPRESSION: Unchanged chest with no acute abnormality seen. ALVERTO MUNIZ MD Narrative 11/10/2016 2:40 PM CDT CHEST TWO VIEWS ?? 11/10/2016 2:10 PM HISTORY: ??Chest pain and shortness of b reath. COMPARISON: ??09/29/2015. FINDINGS: ??The heart size is normal. No mediastinal pathology is seen. Again seen is hyperexpansion of the lung s suggesting obstructive pulmonary disease. The lungs are clear. The pulmonary vasculature is normal. No pneumothorax or pleural effus ion is seen. There are old healed rib fractures. No other chest wal l pathology is seen. I see no definite change since the previous exami nation. Procedure Note Alverto Muniz MD - 11/10/2016Fo rmatting of this note might be different from the original. CHEST TWO VIEWS 11/10/2016 2:10 PM HISTORY: Chest pain and shortness of lizette ath. COMPARISON: 09/29/2015. FINDINGS: The heart size is normal. No m ediastinal pathology is seen. Again seen is hyperexpansion of the lung s suggesting obstructive pulmonary disease. The lungs are clear. The pulmonary vasculature is normal. No pneumothorax or pleural effus ion is seen. There are old healed rib fractures. No other chest wal l pathology is seen. I see no definite change since the previous exami nation. IMPRESSION: Unchanged chest with no acut e abnormality seen. ALVERTO MUNIZ MD Kitty Lemus MD IMG DIAGNOSTIC IMAGING OR DERABLES BNP (11/10/2016 1:14 PM CDT) P athologist Signature N-Terminal Pro 237 0 - 1,800 [place] BNP Inpatient pg/mL [facility] Comment: Reference range shown and results flagge d as abnormal are suggested inpatient cut points for confirming diagnosis if CHF in an acute setting. Establishing a baseline value for each individual anne ent is useful for follow-up. An inpatient or emergency department NT-pr oPBNP <300 pg/mL effectively rules out acute CHF, with 99% negative predictive value. The outpatient non-acute reference range for ruling out CHF is: 0-125 pg/mL (age 18 to less than 75) 0-450 pg/mL (age 75 yrs and older) Specimen Anatomical Collection Method Collection Time Receive d Time (Source) Location / / Volume Laterality Blood specimen 11/10/2016 1:14 PM 017 1:32 (specimen) CDT PM CDT Kitty Lemus MD LAB - BLOOD ORDERABLES Performing Organization Address [facility] e Number [facility] [address], [place] [address] [place] [address] [phone] Troponin I (now) (11/10/2016 1:14 PM CDT) Patholo gist Method Time Signature Troponin I ES <0.015 0.000 - [place] The 99th percentile for uppe r reference range is 0.045 ug/L. ??Troponin values in 0.045 [facility] the range of 0.045 - 0.120 ug/L may be associated wit h risks of adverse ug/L HOSPITAL clinical events. Specimen Anatomical Collection Method Collection Time Receive d Time (Source) Location / / Volume Laterality Blood specimen 11/10/2016 1:14 PM 017 1:32 (specimen) CDT PM CDT Kitty Lemus MD LAB - BLOOD ORDERABLES Performing Organization Address [facility] e Number [facility] [address], [place] [address] [place] [address] [address] [place], [place] [address] [address] [phone] Basic metabolic panel (11/10/2016 1:14 PM CDT) P athologist Signature Sodium 138 133 - 144 [place] mmol/L [facility] Potassium 4.1 3.4 - 5.3 [place] mmol/L [facility] Chloride 102 94 - 109 [place] mmol/L [facility] [facility] Carbon Dioxide 30 20 - 32 [place] mmol/L [facility] Anion Gap 6 3 - 14 [place] mmol/L [facility] Glucose 81 70 - 99 [place] mg/dL [facility] Urea Nitrogen 21 7 - 30 [place] mg/dL [facility] Creatinine 1.00 0.66 - [place] 1.25 mg/dL [facility] GFR Estimate 72 >60 [place] mL/min/1.[address] Comment: Non GFR Calc GFR Estimate If Black 87 >60 mL/min/1.7m2 F [facility] Comment: GFR Calc Calcium 8.5 8.5 - 10.1 mg/dL [facility] Specimen Anatomical Collection Method Collection Time Receive d Time (Source) Location / / Volume Laterality Blood specimen 11/10/2016 1:14 PM 017 1:32 (specimen) CDT PM CDT Kitty Lemus MD LAB - BLOOD ORDERABLES Performing Organization Address City/State/ZIP Code Phon e Number M [facility] [address] [place], [place] [address] [facility] [address] [place], [place] [address] [facility] [phone] CBC with platelets differential (11/10/2016 1:14 PM CDT) Patholo gist Method Time Signature WBC 9.1 4.0 - [place] 11.0 [facility] 10e9/L [facility] RBC Count 4.49 4.4 - 5.9 [place] 10e12/L [facility] Hemoglobin 13.4 13.3 - [place] 17.7 g/dL [facility] Hematocrit 40.8 40.0 - [place] 53.0 % [facility] MCV 91 78 - 100 [facility] MCH 29.8 26.5 - [place] 33.0 pg [facility] MCHC 32.8 31.5 - [place] 36.5 g/dL [facility] RDW 13.3 10.0 - [place] 15.0 % [facility] Platelet Count 178 150 - 450 [place] [address] [place] [address] Diff Method Automated [place] Method [facility] % Neutrophils 53.9 % [facility] % Lymphocytes 33.7 % [facility] % Monocytes 8.8 % [facility] % Eosinophils 1.7 % [facility] % Basophils 0.8 % [facility] % Immature 1.1 % [place] Granulocytes [facility] Nucleated RBCs 0 0 /100 [facility] Absolute 4.9 1.6 - 8.[address] [place] Neutrophil [address] Absolute 3.1 0.8 - 5.3 [place] Lymphocytes [address] [place] [address] Absolute 0.8 0.0 - 1.3 [place] Monocytes [address] [place] [address] Absolute 0.2 0.0 - 0.7 [place] Eosinophils [address] [place] [address] Absolute 0.1 0.0 - 0.2 [place] Basophils [address] [place] [address] Abs Immature 0.1 0 - 0.4 [place] Granulocytes [address] [place] [address] Absolute 0.0 [place] Nucleated RBC [facility] Specimen Anatomical Collection Method Collection Time Receive d Time (Source) Location / / Volume Laterality Blood specimen 11/10/2016 1:14 PM 017 1:32 (specimen) CDT PM CDT Kitty Lemus MD LAB - BLOOD ORDERABLES Performing Organization Address City/State/ZIP Code Phon e Number M [facility] [address] [place], [place] [address] [facility] [address] [phone] EKG 12-lead, tracing only (11/10/2016 1:11 PM CDT) [facility] gist Method Time Signature Interpretation ECG Click View RADIOLOGY Image link RESULTS to view waveform and result Specimen (Source) Anatomical Collection Method Collection Time Re ceived Time Location / / Volume Laterality 11/10/2016 1:11 PM CDT Kitty Lemus MD ECG ORDERABLES Performing Organization Address City/State/ZIP Code Phon e Number RADIOLOGY RESULTS documented in this encounter Visit Diagnoses Diagnosis CAD (coronary artery disease) - Primary Coronary atherosclerosis of unspecified type of vessel, [place] or graft Shortness of breath Shortness of breath CAD (coronary artery disease) Coronary atherosclerosis of unspecified type of vessel, [place] or graft documented in this encounter Administered Medications Inactive Administered Medications - up to 3 most recent administrations Medication Order MAR Action Action Date Dose Rate Site 0.9% sodium chloride BOLUS New Bag 11/10/2016 3:35 PM CDT 98 mLs Intravenous, 1,000 mL, ONCE, On 11/10/16 at 1529, For 1 dose aspirin chewable tablet 243 mg Given 11/10/2016 1:55 PM CDT 243 mg 243 mg, Oral, ONCE, On [facility] 11/10/16 at 1344, For 1 dose aspirin EC EC tablet 81 mg Given 11/11/2016 9:03 AM CDT 81 mg 81 mg, Oral, DAILY, First dose on [place] 11/11/16 at 0800 iopamidol (ISOVUE-370) solution 500 mL Given 11/10/2016 3:35 PM CDT 81 mLs 500 mL, Intravenous, ONCE, On 11/10/16 at 1529, For 1 dose ipratropium - albuterol 0.5 mg/2.5 mg/3 mL Given 11/10/2016 10:2 2 PM CDT 3 mLs (DUONEB) neb solution 3 mL 3 mL, Nebulization, 4 TIMES DAILY RT, First dose on [facility] 11/10/16 at 2004 ipratropium - albuterol 0.5 mg/2.5 mg/3 mL (DUONEB) neb solution 3 mL 3 mL, Nebulization, EVERY 4 HOURS PRN, wheezing, Start ing on 11/10/16 at 2256 losartan (COZAAR) tablet 50 mg Given 11/11/2016 9:03 AM CDT 50 mg 50 mg, Oral, DAILY, First dose on [place] 11/11/16 at 0800 metoprolol (LOPRESSOR) tablet 25 mg Given 11/11/2016 9:03 AM CDT 25 mg 25 mg, Oral, 2 TIMES DAILY, First dose on [facility] 11/10/16 at 2004, HOLD for HR < 60 or SBP < 100 Given 11/10/2016 10:03 PM CDT 25 mg sodium chloride (PF) 0.9% PF flush 3 mL Given 11/11/2016 3:58 AM CDT 3 mLs 3 mL, Intracatheter, EVERY 8 HOURS, First dose on 11/10/16 at 2004, And Q1H PRN, to lock peripheral IV dormant line. Given 11/10/2016 10:03 PM CDT 3 mLs documented in this encounter Active and Recently Administered Medications Times are shown in CDT. Scheduled Medication Order 11/09/2016 11/10/2016 11/11/2016 0.9% sodium chloride BOLUS (COMPLETED) 1 535 (New Bag - Provider: Dionne Luong - Comment: bulk)1536 (Stopped - Provider: Dionne Luong) Intravenous, 1,000 mL, ONCE, 11/10/16 at 1529, For 1 dose aspirin chewable tablet 243 mg (COMPLETED) 1355 (Given - Provider: Jaja Oneal RN) 243 mg, Oral, ONCE, 11/10/16 at 1344, For 1 dose aspirin EC EC tablet 81 mg 0903 (Given - Provider: Divine Gottlieb RN) 81 mg, Oral, DAILY, First dose on 11/11/16 at 0800 iopamidol (ISOVUE-370) solution 500 mL (COMPLETED) 1535 (Given - Provider: Dionne Luong - Comment: bulk) 500 mL, Intravenous, ONCE, 11/10/16 at 1529, For 1 dose ipratropium - albuterol 0.5 mg/2.5 mg/3 mL (DUONEB) neb solution 3 mL (CANCELED) 2222 (Given - Provider: Melissa sexton, RT - Comment: Meds) 3 mL, Nebulization, 4 TIMES DAILY, First dose on 11/10/16 at 2 004 losartan (COZAAR) tablet 50 mg 0 903 (Given - Provider: Divine Gottlieb RN) 50 mg, Oral, DAILY, First dose on 11/11/16 at 0800 metoprolol (LOPRESSOR) tablet 25 mg 2203 (Given - Provider: Dulce Sanchez RN) 0903 (Given - Provider: Divine Gottlieb RN) 25 mg, Oral, 2 TIMES DAILY, First dose o n 11/10/16 at 2003, HOLD for HR < 60 or SBP < 100 pantoprazole (PROTONIX) EC tablet 40 mg 40 mg, Oral, EVERY 48 HOURS, First dose on 11/12/16 at 0800, DO NOT CRUSH. rosuvastatin (CRESTOR) tablet 20 mg 0800 (Canceled Entry - Provider: Orders Generic Provider - Comment: Automatically canceled at discontinue of medication order) 20 mg, Oral, DAILY, First dose on 11/11/16 at 0800 sodium chloride (PF) 0.9% PF flush 3 mL 2203 (Given - Provider: Dulce Sanchez, RN) 0358 (Given - Provider: Hortencia Gomez, YEN) 3 mL, Intracatheter, EVERY 8 HOURS, Firs t dose on 11/10/16 at 2003, And Q1H PRN, to lock peripheral IV dormant line. PRN Medication Order 11/09/2016 11/10/2016 11/11/2016 acetaminophen (TYLENOL) Suppository 650 mg 650 mg, Rectal, EVERY 4 HOURS PRN, mild pain, Starting 11/10/16 at 2002, Alternate ibuprofen (if ordered) with acetaminophen. Not to exceed 4 gram/day. Maximum acetaminophen dose from all sources = 75 mg/kg/day not to exceed 4 grams/day. acetaminophen (TYLENOL) tablet 650 mg 650 mg, Oral, EVERY 4 HOURS PRN, mild pa in, Starting 11/10/16 at 2002, Alternate ibuprofen (if ordered) with acetaminophen Maximum acetaminophen dose from all sources = 75 mg/kg/day not to exceed 4 grams/day. alum & mag hydroxide-simethicone (MYLANTA ES/MAALOX ES) suspensi on 15-30 mL 15-30 mL, Oral, EVERY 4 HOURS PRN, indig estion, heartburn, Starting 11/10/16 at 2002, Shake well. ipratropium - albuterol 0.5 mg/2.5 mg/3 mL (DUONEB) neb solution 3 mL 3 mL, Nebulization, EVERY 4 HOURS PRN, wheezing, Starting 11/10/16 at 2256 lidocaine (LMX4) kit Topical, EVERY 1 HOUR PRN, mild pain, wi th VAD insertion or accessing implanted port,, Starting 11/10/16 at 2002, For 1 dose, Do NOT give if patient has a history of allergy to any local anesthetic or any adilene product. Apply 30 min prior to VAD insertion or port access. MAX Dose: 2.5 gm (?? of 5 gm tube) lidocaine 1 % 1 mL 1 mL, Other, EVERY 1 HOUR PRN, mild pain with VAD insertion or accessing implanted port,, Starting 11/10/16 at 2002, For 1 dose, Do NOT give if patient has a history of allergy to any local anesthetic or any adilene product. MAX dose 1 mL s ubcutaneous OR intradermal in divided doses. naloxone (NARCAN) injection 0.1-0.4 mg 0.1-0.4 mg, Intravenous, EVERY 2 MIN PRN , opioid reversal, Starting 11/10/16 at 2002, For respiratory rate LESS than or EQUAL to 8. Partial reversal dose: 0.1 mg titrated q 2 minutes for Analgesia Clive e Effects Monitoring Sedation Level of 3 (frequently drowsy, arousable, drifts to sleep during conversation).Full reversal dose: 0.4 mg bolus for Analgesia Side Effects Monitoring Sedation Level of 4 (s omnolent, minimal or no response to stimulation). nitroglycerin (NITROSTAT) sublingual tablet 0.4 mg 0.4 mg, Sublingual, EVERY 5 MIN PRN, nasim st pain, Starting 11/10/16 at 2002, Maximum 3 doses in 15 minutes. Notify MD if no relief after 3 doses. Do NOT give nitroglycerin SL IF patient has received si ldenafil (Viagra/Revatio) within the las t 8 hours, avanafil (Stendra) within the last 8 hours, vardenafil (Levitra/Staxyn) with the last 18 hours, or tadalafil (Cialis/Adcirca) within the last 36 hours sodium chloride (PF) 0.9% PF flush 3 mL 3 mL, Intracatheter, EVERY 1 HOUR PRN, l ine flush, post meds or blood draw, Starting 11/10/16 at 2002, for peripheral IV flush post IV meds documented in this encounter Care Teams Installation Helper Relationship Specialty Start Date End Date Mckenzie Mayorga MD PCP - General 07/26/16 12/02/18 [place] [address] Elizabeth Rousseau MD MD Family Practice 07/31/[address] [address] documented as of this encounter
--- OUTSIDE RECORDS SUMMARY | 2022-04-05 08:01 | XMS_ITS | Encounter Summary ---
:1940 Author Organization [place] Address [address] [place] [address] Care Team Providers Name Role Phone Zen Rousseau MD Unavailable Mckenzie Mayorga MD Primary Care Provider Reason for Visit Reason Onset Date Comments Previsit 01/07/2017 Encounter Details Date Type Department Care Team Description 01/07/2017 PRE VISIT [facility] Abhijit Castañeda MD Previsit [facility] [place] [address] [address] [place] [address] [address] [place] [address] [phone] Social History Tobacco Use Types Packs/Day Years [...] on filedocumented in this encounter Care Teams Training Executive Relationship Specialty Start Date End Date Mckenzie Mayorga MD PCP - General 07/26/16 12/02/18 [facility] [address] [place] [address] Zen Rousseau MD MD Family Practice 07/31/[address] [address] documented as of this encounter
--- OUTSIDE RECORDS SUMMARY | 2022-04-05 08:01 | XMS_ITS | Encounter Summary ---
:1940 Author Organization [place] Address [address] [facility] [place] [address] Care Team Providers Name Role Phone Zen Rousseau MD Unavailable Senthil Mckeon MD Primary Care Provider [phone] Encounter Details Date Type Department Care Team Description 12/03/2018 Orders Only [facility], Provider Not In Self [facility] [place] [address] Social History Tobacco Use [...] Name Priority Date/Time Associated Diagnosis Comme nts HEPATIC FUNCTION PANEL Routine 11/27/2018 Resul ts for this procedure are i n the results section . BASIC METABOLIC PANEL Routine 11/27/2018 Result s for this procedure are i n the results section . CBC WITH PLATELETS Routine 11/27/2018 Results f or this procedure are i n the results section . documented in this encounter Results Basic metabolic panel (11/27/2018) athologist Signature Sodium 137 138 - 146 EXTER[facility] mmol/L Potassium 4.6 3.5 - 4.9 [facility] mmol/L Chloride 102 98 - 109 [facility] mmol/L Carbon Dioxide 28 20 - 32 [facility] mmol/L Anion Gap mmol/L EX[facility] LAB Glucose 70 - 99 [facility] mg/dL Urea Nitrogen 25 8 - 26 [facility] mg/dL Creatinine 1.3 0.6 - 1.3 [facility] mg/dL Calcium mg/dL EX[facility] GFR Estimate ml/min/1.7 EXTERNAL LAB 3m2 GFR Estimate If ml/min/1.7 EXTERNAL LAB Black 3m2 Specimen (Source) Anatomical Location Collection Method / Collectio n Time Received Time / Laterality Volume Blood specimen 11/27/2018 (specimen) Patient Reported LAB - BLOOD ORDERABLES Performing Organization Address City/State/ZIP Code Phon e Number EXTERNAL LAB EXTERNAL LAB External Lab CBC with platelets (11/27/2018) athologist Signature WBC 11.4 4.5 - 11 EXTERNAL LAB 10^9/L RBC Count 4.75 4.30 - 5.90 EXTERNAL LAB 10^12/L Hemoglobin 13.7 13.5 - 17.5 EXTERNAL LAB g/dL Hematocrit 43.1 37 - 53 % EXTERNAL LAB MCV fl EXTERNAL LAB MCH 29 26 - 34 pg EXTERNAL LAB MCHC 32 32 - 36 EXTERNAL LAB g/dL RDW % EXTERNAL LAB Platelet Count 156 140 - 440 EXTERNAL LAB 10^9/L Specimen (Source) Anatomical Location Collection Method / Collectio n Time Received Time / Laterality Volume Blood specimen 11/27/2018 (specimen) Patient Reported LAB - BLOOD ORDERABLES Performing Organization Address City/State/ZIP Code Phon e Number EXTERNAL LAB EXTERNAL LAB External Lab Hepatic panel (11/27/2018) athologist Signature Protein Total 6.6 6.0 - 8.3 EXTERNAL LAB g/dL Albumin 3.9 3.3 - 5.0 EXTERNAL LAB g/dL Bilirubin Total 1.8 0 - 1.5 EXTERNAL LAB mg/dL Alkaline 58 40 - 150 EXTERNAL LAB Phosphatase U/L AST 17 12 - 35 EXTERNAL LAB U/L ALT 24 13 - 69 EXTERNAL LAB U/L Bilirubin Direct 0.3 0 - 0.5 EXTERNAL LAB mg/dL Specimen (Source) Anatomical Location Collection Method / Collectio n Time Received Time / Laterality Volume Blood specimen 11/27/2018 (specimen) Patient Reported LAB - BLOOD ORDERABLES Performing Organization Address City/State/ZIP Code Phon e Number EXTERNAL LAB EXTERNAL LAB External Lab documented in this encounter Visit Diagnoses Not on filedocumented in this encounter Care Teams Oil Processing Technician Relationship Specialty Start Date End Date Senthil Mckeon MD PCP - General 12/03/18 09/10/21 Zen Rousseau MD MD Family Practice 07/31/[address] [phone] documented as of this encounter
--- OUTSIDE RECORDS SUMMARY | 2022-04-05 08:01 | XMS_ITS | Encounter Summary ---
:1940 Author Organization [facility] [address] [facility] [place] [address] Care Team Providers Name Role Phone Zen Rousseau MD Unavailable Senthil Mckeon MD Primary Care Provider [phone] Reason for Visit Reason Comments Follow Up Hyperlipidemia, HTN, CAD/Inf erior HI/stenting in 2009, obesity, aortic valve disease Encounter Details Date Type Department Care Team Description 12/03/2018 Office Visit [facility], [place] E, Essential hy pertension (Primary Dx); [facility] BUSINESS ADMINISTRATION INSTRUCTOR TELESERVICES REPRESENTATIVE Coronary artery disease involving [place] coronary artery of [place] heart without angina pectoris [facility] MARY XIONG [address] [place] [address] [place], [place] [phone] (Work) [phone] Social History Tobacco Use Types Packs/Day Years [...] Sign Reading Time Taken Comments Blood Pressure 110/70 12/03/2018 3:27 PM CDT Pulse 59 12/03/2018 3:27 PM CDT Temperature - - Respiratory Rate - - Oxygen Saturation 97% 12/03/2018 3:27 PM CDT Inhaled Oxygen Concentration - - Weight 98.9 kg (218 lb) 12/03/2018 3:27 PM CDT Height 167.6 cm (5' 6) 12/03/2018 3:27 PM CDT Body Mass Index 35.19 12/03/2018 3:27 PM CDT documented in this encounter Progress Notes [place], [place] E, BUSINESS ADMINISTRATION INSTRUCTOR TELESERVICES REPRESENTATIVE - 12/03/2018 4:21 PM CDT Service Date: 12/03/2018 HISTORY OF PRESENT ILLNESS: This 78-year-old male presents to [facility] today for a followup visit. He is a patient of Dr. Trimble seen in our clinic for coronary artery disease, aortic stenosis, hypertension, hyperlipidemia, sleep apnea. 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 He has known preserved LV function. We have followed him with serial echocardiograms for mild aortic stenosis. His echocardiogram in 05/2018 showed slight progression of aortic stenosis. It demonstrated a mean aortic valve gradient of 16 mmHg and aortic valve area of 1.5 cm2. His last stress test was done in 2016. This showed no evidence of ischemia or infarction. Valentina does use CPAP for sleep apnea but has not recently had this analyzed. He is also on multiple agents to control his blood pressure. He recently saw his primary medical doctor due to lower extremity swelling and was started on low- dose Lasix. He returns today for reassessment. Valentina comes in with his today. He tells me he is very inactive and does not exercise on a regular basis. He states after taking 3 days of Lasix, his lower extremity swelling greatly improved. He went in for a followup visit and was given a prescription for Lasix 20 mg to take as needed. He was told that his chest x-ray was normal. He is still bothered somewhat by persistent lower extremity edema. He denies any significant shortness of breath or orthopnea. He tells me he sleeps well with his CPAP. He denies palpitations, lightheadedness, dizziness or orthopnea. He does admit to some brief fleeting sharp chest pains, very erratic and infrequent. He denies any significant chest pain that was si milar to his angina symptoms in 2009. PHYSICAL EXAMINATION: His blood pressure is 110/70, heart rate of 59 beats per minute and is regular. His lungs are clear. He does have 1+ pitting ankle edema noted bilaterally. IMPRESSION AND PLAN: 1. Coronary artery disease. History of inferolateral myocardial infarction and stenting to an OM vessel in 2009. He is free from any angina. He does have some very atypical type sharp chest pain. Last stress test in 2017 showed no ischemia or infarction. For now, we will continue current medical regimen. 2. Mild aortic stenosis. We are following this on a regular basis. 3. Hypertension. He does have moderate left ventricular hypertrophy. Blood pressure is well controlled today. 4. Peripheral edema. He has had a history of intermittent dependent edema. Compression stockings have been advised and he is taking as-needed Lasix. He has not had followup laboratory work and we will have him undergo a BMP today and I will review the results with him over the phone. I have also advised on a low- salt diet, leg elevation and increasing his walking. Thanks for allowing me to participate in this patient's care. He is planning on followup with Dr. Trimble in 6 months. MALI DOWD APRN, [place]: [email or web address] Name: DONALDO BAUTISTA Account: [id number] : 1940 Service Date: 12/03/2018 Document: [id number] [place]i Dowd APRN CNP - 12/03/2018 3:50 PM CDT HPI and Plan: See dictation #[id number] Orders Placed This Encounter Procedures ??? Basic metabolic panel Orders Placed This Encounter Medications ??? furosemide (LASIX) 20 MG tablet Sig: Take 20 mg by mouth as needed (Use as Directed for edema) There are no discontinued medications. Encounter Diagnoses Name Primary? Essential hypertension Yes ??? Coronary artery disease involving [place] coronary artery of [place] heart without angina pectoris CURRENT MEDICATIONS: Current [...] ??? furosemide (LASIX) 20 MG tablet Take 20 mg by mouth as needed (Use as Directed for edema) ??? losartan (COZAAR) 50 MG tablet Take [...] ??? Financial resource strain: None ??? Food insecurity: Worry: None Inability: None ??? Transportation needs: Medical: None Non-medical: None Tobacco Use ??? Smoking status: Former Smoker ??? Smokeless tobacco: Never Used ??? Tobacco comment: quit about 30 years ago Substance and Sexual Activity ??? Alcohol use: Yes Comment: rare ??? Drug use: No ??? Sexual activity: None Lifestyle ??? Physical activity: Days per week: None Minutes per session: None ??? Stress: None Relationships ??? Social connections: Talks on phone: None Gets together: None Attends pentecostal service: None Active member of club or organization: None Attends meetings of clubs or organizations: None Relationship status: None ??? Intimate partner violence: Fear of current or ex partner: None [...] Self-Exams Not Asked ??? Parent/sibling w/ CABG, HI or angioplasty before 65F 55M? Not Asked Social History Narrative ??? None Review of Systems: Skin: Negative Eyes: Positive for glasses ENT: Negative Respiratory: Positive for dyspnea on exertion;sleep apnea;CPAP walking up one flight of stairs or any exertion gets SOB Cardiovascular: Positive for;chest pain;edema sharp pain - doesn't last long - none recently Gastroenterology: Positive for heartburn;reflux under control with medication Genitourinary: Negative Musculoskeletal: Positive for back pain both shoulders; sees chiropractor for his back Neurologic: Negative Psychiatric: Negative Heme/Lymph/Imm: Positive for easy bruising Endocrine: Negative Physical Exam: Vitals: BP 110/70 (BP Location: Right arm, Patient Position: Sitting, Cuff Size: Adult Regular) Pulse 59 Ht 1.676 m (5' 6) Wt 98.9 kg (218 lb) SpO2 97% BMI 35.19 kg/m?? Constitutional: in no acute distress obese Skin: warm and dry to the touch Head: normocephalic Eyes: no xanthalasma Lymph: ENT: no pallor or cyanosis Neck: carotid pulses are full and equal bilaterally;JVP normal transmitted murmur Respiratory: clear to auscultation Cardiac: regular rhythm;normal S1 and S2;no S3 or S4 distant heart sounds no presence of murmur systolic ejection murmur;grade 2;radiation to the carotid pulses full and equal GI: abdomen soft;BS normoactive obese Extremities and Muscular Skeletal: no deformities, clubbing, cyanosis, erythema observed;no edema bilateral LE edema;1+;pitting Neurological: no gross motor deficits Psych: affect appropriate, oriented to time, person and place CC No referring provider defined for this encounter. documented in this encounter Plan of Treatment Not on filedocumented as of this encounter Results (ABNORMAL) Basic metabolic panel (12/03/2018 4:15 PM CDT) Analysis Performed At [facility] Time Signature Sodium 137 133 - 144 12/03/2018 [place] mmol/L 4:48 PM [facility] Potassium 4.1 3.4 - 5.3 12/03/2018 [place] mmol/L 4:48 PM [facility] Chloride 103 94 - 109 12/03/2018 [place] mmol/L 4:48 PM [facility] Carbon Dioxide 29 20 - 32 12/03/2018 [place] mmol/L 4:56 PM [facility] Anion Gap 5 3 - 14 12/03/2018 [place] mmol/L 4:56 PM [facility] Glucose 90 70 - 99 12/03/2018 [place] mg/dL 4:56 PM [facility] Urea Nitrogen 21 7 - 30 12/03/2018 [place] mg/dL 4:56 PM [facility] Creatinine 1.52 (H) 0.66 - 12/03/2018 [place] 1.25 mg/dL 4:56 PM [facility] GFR Estimate 42 (L) >60 12/03/2018 [place] mL/min/{1. 4:56 PM [facility] 73_m2} HOSPITAL Comment: Non GFR Calc Starting 07/22/2018, serum creatinine ba sed estimated GFR (eGFR) will be calculated using the Chronic Kidney Dise [facility] Epidemiology Collaboration (CKD-EPI) equation. GFR Estimate If 49 (L) >60 mL/min/{1.73_m2} 12/03/2018 4: 56 PM [place] [facility] Comment: GFR Calc Starting 07/22/2018, serum creatinine ba sed estimated GFR (eGFR) will be calculated using the Chronic Kidney Dise [facility] Epidemiology Collaboration (CKD-EPI) equation. Calcium 9.0 8.5 - 10.1 mg/dL 12/03/2018 4:56 PM [facility] Specimen Anatomical Collection Method Collection Time Receive d Time (Source) Location / / Volume Laterality Blood specimen 12/03/2018 4:15 PM 019 4:20 (specimen) CDT PM CDT Mali Dowd APRN TELESERVICES REPRESENTATIVE LAB - BLOOD ORDERABLES Performing Organization Address City/State/ZIP Code Phon e Number [facility] [address] [address] [facility] [address] [place] [address], [facility] [phone] [facility] [address] [address], [facility] documented in this encounter Visit Diagnoses Diagnosis Essential hypertension - Primary Unspecified essential hypertension Coronary artery disease involving [place] coronary artery of [place] heart without angina pectoris documented in this encounter Care Teams Field Education Director Relationship Specialty Start Date End Date Senthil Mckeon MD PCP - General 12/03/18 09/10/21 Zen Rousseau MD MD Family Practice 07/31/[address] [address] documented as of this encounter
--- OUTSIDE RECORDS SUMMARY | 2022-04-05 08:02 | XMS_ITS | Encounter Summary ---
:1940 Author Organization [facility] Address [address] [place] [address] Care Team Providers Name Role Phone Zen Rousseau MD Unavailable Zen Rousseau MD Primary Care Provider Reason for Visit Auth/Cert - Closed Specialty Diagnoses / Procedures Referred By Contact Refer red To Contact Surgery Diagnoses Rotator cuff tear right shoulder Rh Periop Services Procedures [facility] [address] [place], [place] [address] Fax: Referral ID Status Reason Start Date Expiration Date Visits Requ ested Visits Authorized [id number] Closed 1 1 Encounter Details Date Type Department Care Team Description 10/18/2014 Hospital Encounter [facility] Juice [facility]field [facility] [place] PreOP/PostOP MD Alex (Primary Dx) [address] [place], [place] ORTHOP[facility] [address] [phone] [address] [place] [address] Social History Tobacco Use Types Packs/Day Years Used Date Former Smoker Smokeless Tobacco: Never Used Comments: quit about 30 years ago Alcohol Use Standard Drinks/Week Comments No 0 (1 standard drink = 0.6 oz pure alcoho l) Sex Assigned at Date Recorded Not on file documented as of this encounter Last Filed Vital Signs Vital Sign Reading Time Taken Comments Blood Pressure 151/76 10/18/2014 3:52 PM CDT Pulse - - Temperature 36.2 ??C (97.2 ??F) 10/18/2014 3:52 PM CDT Respiratory Rate 14 10/18/2014 3:52 PM CDT Oxygen Saturation 92% 10/18/2014 3:52 PM CDT Inhaled Oxygen Concentration - - Weight 99.8 kg (220 lb) 10/18/2014 10:13 AM CDT Height 162.6 cm (5' 4) 10/18/2014 10:13 AM CDT Body Mass Index 37.76 10/18/2014 10:13 AM CDT documented in this encounter Discharge Instructions Discharge InstructionsMaria Fernanda Fischer RN - 10/18/2014 2:47 PM CDT GENERAL ANESTHESIA OR SEDATION ADULT DISCHARGE INSTRUCTIONS SPECIAL PRECAUTIONS FOR 24 HOURS AFTER SURGERY IT IS NOT UNUSUAL TO FEEL LIGHT-HEADED OR FAINT, UP TO 24 HOURS AFTER SURGERY OR WHILE TAKING PAIN MEDICATION. IF YOU HAVE THESE SYMPTOMS; SIT FOR A FEW MINUTES BEFORE STANDING AND HAVE SOMEONE ASSIST YOU WHEN YOU GET UP TO WALK OR USE THE BATHROOM. YOU SHOULD REST AND RELAX FOR THE NEXT 24 HOURS AND YOU MUST MAKE ARRANGEMENTS TO HAVE SOMEONE STAY WITH YOU FOR AT LEAST 24 HOURS AFTER YOUR DISCHARGE. AVOID HAZARDOUS AND STRENUOUS ACTIVITIES. DO NOTMAKE IMPORTANT DECISIONS FOR [address] ANY VEHICLE OR OPERATE MECHANICAL EQUIPMENT FOR 24 HOURS FOLLOWING THE END OF YOUR SURGERY. EVEN THOUGH YOU MAY FEEL NORMAL, YOUR REACTIONS MAY BE AFFECTED BY THE MEDICATION YOU HAVE RECEIVED. DO NOT DRINK ALCOHOLIC BEVERAGES FOR 24 HOURS FOLLOWING YOUR SURGERY. DRINK CLEAR LIQUIDS (APPLE JUICE, YUAN VARGAS, 7-UP, BROTH, ETC.). PROGRESS TO YOUR REGULAR DIET YOU FEEL ABLE. YOU MAY HAVE A DRY MOUTH, A SORE THROAT, MUSCLES ACHES OR TROUBLE SLEEPING. THESE SHOULD GO AWAY AFTER 24 HOURS. CALL YOUR DOCTOR FOR ANY OF THE FOLLOWING: SIGNS OF INFECTION (FEVER, GROWING TENDERNESS AT THE SURGERY SITE, A LARGE AMOUNT OF DRAINAGE OR BLEEDING, SEVERE PAIN, FOUL-SMELLING DRAINAGE, REDNESS OR SWELLING. IT HAS BEEN OVER 8 TO 10 HOURS SINCE SURGERY AND YOU ARE STILL NOT ABLE TO URINATE (PASS WATER). SHOULDER SURGERY DISCHARGE INSTRUCTIONS Following these home instructions will aid the healing process, prevent complications and increase your comfort following your surgery. 1. Keep the dressing clean and dry until the time that your physician has instructed you to remove it. 2. Ice the shoulder over the next 24 - 48 hours and then as needed for comfort. 3. Wear the sling until the day after surgery and then follow your physician???s recommendations regarding use of the sling. 4. Remain quiet and restful the day of surgery. Resume normal activities gradually over the next dayor so as advised by your physician. 5. Exercise your arm only as instructed by your physician. Please notify your doctor of any of the followin. Fever greater than 101 degrees 2. Excessive drainage or bleeding 3. Blue discoloration of the fingers or they are cold to the touch 4. Severe pain not relieved by your pain medication 5. Drainage that is green, yellow, thick white, or has a bad odor DR. JUICE BUTTERFIELD M.D. CLINIC PHONE NUMBER: [phone] documented in this encounter Medications at Time [...] by 0 B 12 PO) mouth daily pantoprazole (PROTONIX) Take 40 mg by mouth 0 40 MG enteric coated every 48 hours tablet metoprolol (LOPRESSOR) Take 25 mg by mouth 2 0 06/24/2019 25 MG tablet times daily nitroglycerin Place 0.4 mg under 0 08/2015 (NITROSTAT) 0.4 MG SL the tongue every 5 tablet minutes as needed for chest pain oxyCODONE (ROXICODONE) 5 Take 1-2 tablets 40 tablet 0 10/1810/04/2015 MG immediate release (5-10 mg) by mouth tabletIndications: Right every 3 hours as shoulder pain needed for other (Moderate to Severe Pain) pravastatin (PRAVACHOL) Take 80 mg by mouth 0 10/04/2015 80 MG tablet daily documented as of this encounter Miscellaneous Notes Op Note - Juice Butterfield MD - 10/18/2014 12:53 PM CDT PREOPERATIVE DIAGNOSES: 1. Impingement syndrome and subacrominal bursitis, right shoulder. 2. Biceps tendinosis, right shoulder. 3. Acromioclavicular joint arthritis, right shoulder. 4. Rotator cuff tendinosis, right shoulder. POSTOPERATIVE DIAGNOSES: 1. Biceps tendinosis, right shoulder. 2. Impingement syndrome with unstable, painful os acromiale, right shoulder. 3. Acromioclavicular joint arthritis, right shoulder. 4. Partial thickness rotator cuff tear, right shoulder. PROCEDURES PERFORMED: 1. Right shoulder glenohumeral arthroscopy with extensive debridement and biceps tenotomy. 2. Arthroscopic subacromial bursectomy and rotator cuff debridement. 3. Debridement and partial resection of right shoulder os acromiale. 4. Right shoulder arthroscopic acromioclavicular joint resection. SURGEON: Juice Butterfield MD HAND SINGER: Zaira Vasquez PA-C ANESTHESIA: General. ESTIMATED BLOOD LOSS: Minimal. COMPLICATIONS: None. DESCRIPTION OF PROCEDURE: Donaldo Bautista was taken to the operating room where after successful administration of general anesthetic, antibiotic prophylaxis and beach chair position, the shoulder was prepped and draped in sterile fashion. Standard diagnostic arthroscopy portals were established and the g lenohumeral joint showed grade II/III central glenoid changes. The biceps was irregular and partially torn. A tenotomy was performed as well as a labral debridement of extensive tearing. The scope was then placed in the subacromial space. Bursal sided partial- thickness rotator cuff tearing and fraying were noted throughout the superior cuff, which was gently debrided. This was estimated to be less than 25% of the cuff thickness. There was also substantial bursal tissue, which was debrided with a shaver and electrocautery. Next, the AC joint capsule was opened and a large inferior spur on the clavicle was resected and an approximate 5-6 mm width distal clavicle excision was performed. Visualization was excellent and the superior portion of the clavicle was clearly resected using auxiliary portals. Next, the acromion was evaluated. There was a downsloping anteriorly. Upon inspection, there was a large unstable os acromiale. The patient had had no recent trauma. Given his age, I elected to performan acromioplasty, smoothing the acromion and removing the anterior prominence. The decompression was excellent. Further resection of the os began to violate the deltoid attachment and care was taken toavoid this. A digit was then placed in the subacromial space and confirmed the above pathology and an excellent decompression. The wounds were irrigated and closed with nylon suture followed by Marcaine, sterile dressing and a sling. There were no complications. JUICE BUTTERFIELD MD MT: PP Name: DONALDO BAUTISTA MRN: [id number] Account: [id number] : 1940 Procedure Date: 10/18/2014 Document: [id number] Brief Op Note - Juice Butterfield MD - 10/18/2014 7:24 AM CDT [facility] Brief Operative Note Pre-operative diagnosis: Right shoulder impingement, biceps tendonosis, AC arthritis. Post-operative diagnosis same Procedure: Procedure(s) with comments: ARTHROSCOPY SHOULDER DECOMPRESSION - Right shoulder arthroscopic decompression, biceps tenotomy, acromio clavicular resection and evaluation of rotator cuff tear, possible rotator cuff repair surgeon requests choice anesthesia ARTHROSCOPY SHOULDER ROTATOR CUFF REPAIR Surgeon(s): Surgeon(s) and Role: * Juice Butterfield MD - Primary Estimated blood loss: * No values recorded between and 10/18/2014 7:24 AM * Specimens: * No specimens in log * Findings: No anticipated complications documented in this encounter Plan of Treatment Not on filedocumented as of this encounter Procedures Procedure Name Priority Date/Time Associated Diagnosis Comme nts ARTHROSCOPY, SHOULDER, 10/18/2014 11:10 AM Right shoul claude WITH DECOMPRESSION CDT impingement, biceps tenodesis, AC arthritis. Special Needs 222#, 5'4 stated POTASSIUM STAT 10/18/2014 10:55 AM Right shoulder Result s for this CDT pain procedure are i n the results section. HEMOGLOBIN STAT 10/18/2014 10:55 AM Right shoulder Result s for this CDT pain procedure are i n the results section. CREATININE STAT 10/18/2014 10:55 AM Right shoulder Result s for this CDT pain procedure are i n the results section. GLUCOSE BY METER Routine 10/18/2014 10:16 AM Right shoulder Re sults for this CDT pain procedure are i n the results section. EKG CARDIAC - HIM 10/06/2014 12:00 AM SCAN BALANCE BRIDGE INSPECTOR documented in this encounter Results Potassium (10/18/2014 10:55 AM CDT) athologist Signature Potassium 4.4 3.4 - 5.3 [facility] [place] mmol/L HOSPITAL Specimen Anatomical Collection Method Collection Time Receive d Time (Source) Location / / Volume Laterality Blood specimen 10/18/2014 10:55 5 (specimen) AM CDT 10:58 AM CDT Donaldo Arita DO LAB - BLOOD ORDERABLES Performing Organization Address City/[facility] Phon e Number [facility] [address] [place], [place] [address] [place] [address] [place], [place] [address] Creatinine (10/18/2014 10:55 AM CDT) athologist Signature Creatinine 0.91 0.66 - 1.25 [place] mg/dL [facility] GFR Estimate 81 >60 [place] mL/min/1.7m [address] Comment: Non GFR Calc GFR Estimate If Black >90 >60 mL/min/1.7m2 [facility] GFR Calc HOSP ITAL Specimen Anatomical Collection Method Collection Time Receive d Time (Source) Location / / Volume Laterality Blood specimen 10/18/2014 10:55 5 (specimen) AM CDT 10:58 AM CDT Donaldo Arita DO LAB - BLOOD ORDERABLES Performing Organization Address City/[facility] Phon e Number [facility] [address], [place] [address] [place] [address] [place], [place] [address] Hemoglobin (10/18/2014 10:55 AM CDT) athologist Signature Hemoglobin 13.3 13.3 - 17.7 [facility] g/dL [facility] Specimen Anatomical Collection Method Collection Time Receive d Time (Source) Location / / Volume Laterality Blood specimen 10/18/2014 10:55 5 (specimen) AM CDT 10:58 AM CDT Donaldo Arita DO LAB - BLOOD ORDERABLES Performing Organization Address City/[facility] Phon e Number [facility] [address], [place] [address] [facility] [address] [place], [place] [address] Glucose by meter (10/18/2014 10:16 AM CDT) athologist Signature Glucose 99 60 - 99 POINT OF CARE mg/dL TEST, GLUCOSE Specimen Anatomical Collection Method Collection Time Receive d Time (Source) Location / / Volume Laterality 10/18/2014 10:16 10/18/2014 AM CDT 10:20 AM CDT Juice Butterfield MD LAB - BEAKER POCT Performing Organization Address City/[facility] Phon e Number [facility] POINT OF CARE TEST, GLUCOSE POINT OF CARE TEST, GLUCOSE EKG CARDIAC - HIM SCAN (10/06/2014 12:00 AM BALANCE BRIDGE INSPECTOR) Specimen (Source) Anatomical Location Collection Method / Collectio n Time Received Time / Laterality Volume 10/06/2014 Narrative This result has an attachment that is no t available. Provider Outside ECG ORDERABLES documented in this encounter Visit Diagnoses Diagnosis Right shoulder pain - Primary Pain in joint, shoulder region documented in this encounter Active and Recently Administered Medications Times are shown in CDT. Scheduled Medication Order 10/16/2014 10/17/2014 10/18/2014 ceFAZolin (ANCEF) intermittent infusion 2 g (pre-mix) (COMPLETED ) 1130 (Given - Provider: Frank Killian APRN CARTRIDGE ASSEMBLING MACHINE ADJUSTER - Comment: after neg test dose) 2 g, Intravenous, PRE-OP/PRE-PROCEDURE, Starting 10/18/14 at 1010, For 1 dose, Give first dose within 1 hour PRIOR to incision. If patient weight is greater than or equal to 120 kg change dose to 3 g ., Indications: Surgical Prophylaxis, Pre-procedure Continuous Medication Order 10/16/2014 10/17/2014 10/18/2014 lactated ringers infusion (CANCELED) 1107 (New Bag - Provider: Frank Killian APRN CARTRIDGE ASSEMBLING MACHINE ADJUSTER)1215 (New Bag - Provider: Frank Killian APRN CARTRIDGE ASSEMBLING MACHINE ADJUSTER)1302 (Anesthesia Volume Adjustment - Provider: Frank Killian APRN CRNA) at 75-100 mL/hr, Intravenous, CONTINUOUS , UNLESS otherwise indicated., Pre- procedure, Starting Sat10/18/14 at 1100, Until Sat10/18/14 at 1304 PRN Medication Order 10/16/2014 10/17/2014 10/18/2014 EPINEPHrine 1mg (1mL of 1:1,000) in 3000mL saline (CANCELED) 1214 (Given - Provider: Juice Butterfield MD) PRN, Starting Sat10/18/14 at 1214, Intra-procedure sodium chloride 0.9% (bag) irrigation (CANCELED) 1249 (Given - Provider: Juice Butterfield MD) PRN, Starting Sat10/18/14 at 1249, Intra-procedure documented in this encounter Care Teams District Plant Superintendent Relationship Specialty Start Date End Date Zen Rousseau MD PCP - General [facility] 08/01/12 08/09/[address] [address] Zen Rousseau MD [facility] 07/31/[address] [phone] documented as of this encounter
--- OUTSIDE RECORDS SUMMARY | 2022-04-05 08:02 | XMS_ITS | Encounter Summary ---
:1940 Author Organization [facility] Address [address] [facility] [place] [address] Care Team Providers Name Role Phone Zen Rousseau MD Unavailable Zen Rousseau MD Primary Care Provider Reason for Visit Auth/Cert - Closed Specialty Diagnoses / Procedures Referred By Contact Refer red To Contact Surgery Diagnoses Rotator cuff tear right shoulder Rh Periop Services Procedures [facility] [address] [place], [place] [address] Fax: Referral ID Status Reason Start Date Expiration Date Visits Requ ested Visits Authorized [id number] Closed 1 1 Encounter Details Date Type Department Care Team Description 10/18/2014 Anesthesia Event [facility] Matthew De La Rosa MD [facility] ANESTHESIA [address] [place], [place] [id number] [facility] PeriOp Servic Frank Killian APRN CAR LOT ATTENDANT S [facility] [address] [place] [address] [address] [place] [address] Anesthesia Record Procedure Summary Procedure Name Responsible Anesthesia Start Anesthesia Stop Anesthesiologist Time Time 1. Right shoulder Matthew De La Rosa MD 10/18/14 1130 10/18 1307 glenohumeral arthroscopy with extensive debridement and biceps tenotomy. 2. Arthroscopic subacromial bursectomy and rotator cuff debridement. 3. Debridement and partial resection of right shoulder os acromiale. 4. Right shoulder arthroscopic acromioclavicular joint resection. (Right Shoulder) Events Date Time Event Comment 10/18/2014 1130 An Start 1130 Quick Note To OR, monitors on, VSS, patient positioned to comfort, pre-O2, smooth I V induction, eyes taped, ATI x 1, all PPP. 1134 An Start Data 1134 An Induction 1134 AN START SEVO 1134 MD Present 1136 MD Present 1138 An Intubation 1138 MD Present 1205 MD Present 1225 MD Present 1253 AN END SEVO 1254 MD Present 1302 an stop data 1307 An Stop Electronically s igned by Frank Killian on October 18, 2014 1 :07 PM Name Total midazolam 1mg/mL 2 mg fentanyl 50mcg/mL 150 mcg lidocaine 1% 50 mg propofol 10mg/mL 200 mg rocuronium 10mg/mL 50 mg glycopyrrolate 0.2mg/mL 0.2 mg neostigmine 1mg/mL 2 mg dexamethasone 4mg/mL 4 mg ondansetron 2mg/mL 4 mg ePHEDrine 50mg/mL 25 mg bupivacaine 0.25% with EPINEPHrine 1:200,000 30 mL ceFAZolin (ANCEF) intermittent infusion 2 g (pre-mix) 2 g lactated ringers infusion 1,300 mL Agents Name O2 N2O Exp Sevoflurane Blood No blood administrations on file. Lines, Drains, and Airways Type Details Placement Removal Incision/Surgical Site 10/18/14; 1301; 10/18/14 1301 by Right; Shoulder Patric Toussaint RN Peripheral IV 10/18/14; 1047; 22 G, 10/18/14 1047 by 10/18/14 1157 by 1 1/4 inch; Left, Patric Malcolm Paul Anterior; Lower MD Jacques Ortiz APRN CRNA forearm; Alcohol; Injectable; Tolerated well RETIRED ETT 10/18/14; 1138; Mask 10/18/14 1138 by 10/18/14 1 300 by Ventilation: Easy; Frank Killian Paul Ease of Intubation: JERMAINE Hanna CRNA, APRN CRNA Easy; Airway Size: 8; Cuffed; Oral; Blade Type: Muhammad; Blade Size: 2; Insertion Attempts: 1; Breath Sounds: Equal, clear and bilateral; End Tidal CO2: Present; Dentition: Intact; Grade View of Cords: 1 Peripheral IV 10/18/14; 1149; 20 G, 10/18/14 1149 by 10/18/14 1555 by 1 1/4 inch; Left; Frank Killian Ste phanie A, RN Hand; Alcohol; None; JERMAINE Hanna CAR LOT ATTENDANT Tolerated well documented in this encounter Social History Tobacco Use Types Packs/Day Years Used Date Former Smoker Smokeless Tobacco: Never Used Comments: quit about 30 years ago Alcohol Use Standard Drinks/Week Comments No 0 (1 standard drink = 0.6 oz pure alcoho l) Sex Assigned at Date Recorded Not on file documented as of this encounter OR Notes Anesthesia Postprocedure Evaluation - Matthew De La Rosa MD - 10/18/2014 1:55 PM CDT Anesthesia Post-Evaluation Note Patient: Sreedhar Bautista Patient location: PACU Procedure(s) Performed: Procedure(s) with comments: ARTHROSCOPY SHOULDER DECOMPRESSION - Right shoulder arthroscopic decompression, biceps tenotomy, acromio clavicular resection and debridement of rotator cuff. surgeon requests choice anesthesia Anesthesia type: General, Peripheral Nerve Block for post-op pain at surgeon's request, ETT Post Op Diagnosis: * No post-op diagnosis entered * [facility] Brief Operative Note Pre-operative diagnosis: Right shoulder impingement, biceps tendonosis, AC arthritis. Post-operative diagnosis same Procedure: Procedure(s) w, ith comments: ARTHROSCOPY SHOULDER DECOMPRESSION - Right shoulder arthroscopic decompression, biceps tenotomy, acromio clavicular resection and evaluation of rotator cuff tear, possible rotator cuff repair surgeon requests choice anesthesia , ARTHROSCOPY SHOULDER ROTATOR CUFF REPAIR Surgeon(s): Surgeon(s) and Role: * Shamar Butterfield MD - Primary Estimated blood loss: * No values recorded between and 10/18/2014 7:24 AM * Specime, ns: * No specimens in log * Findings: No anticipated complications Patient Condition Respiratory Function (RR / SpO2 / Airway Patency): Satisfactory Cardiac Function (HR / Rhythm / BP): Satisfactory Mental Status: Satisfactory. Able to fully participate in evaluation Temperature: Satisfactory Pain Control: Satisfactory PONV: None Beta-Ronald Therapy: None indicated Hydration Status: Satisfactory Last Vitals: Filed Vitals: 10/18/14 1325 10/18/14 1330 10/18/14 1345 BP: 151/83 146/74 143/80 Temp: 97.3 ??F (36.3 ??C) Resp: SpO2: 92% 90% 93% Additional Comments: Anesthesia Preprocedure Evaluation - Patric Malcolm MD - 10/18/2014 11:05 AM CDT Anesthesia Evaluation . Pt has had prior anesthetic. Type: General No history of anesthetic complications ROS/MED HX ENT/Pulmonary: - neg pulmonary ROS Neurologic: - neg neurologic ROS Cardiovascular: (+) hypertension CAD, past PA,stent,. : . . . :. . METS/Exercise Tolerance: Hematologic: - neg hematologic ROS Musculoskeletal: (+) other musculoskeletal- shoulder pain GI/Hepatic: - neg GI/hepatic ROS Renal/Genitourinary: - ROS Renal section negative Endo: - neg endo ROS Psychiatric: - neg psychiatric ROS Infectious Disease: - neg infectious disease ROS Malignancy: - no malignancy Other: - neg other ROS Physical Exam Normal systems: cardiovascular and pulmonary Airway Mallampati: III TM distance: >3 FB Neck ROM: full Dental (+) upper dentures Cardiovascular Rhythm and rate: regular and normal Pulmonary breath sounds clear to auscultation Anesthesia Plan ASA Score: 3 . Plan for General, Peripheral Nerve Block for post-op pain at surgeon's request and ETT - with Intravenous and Propofol induction.Maintenance will be Balanced. Routine analgesia and antiemetics and nerve block for post-op analgesia to be used for post-operative care. Anesthetic plan, risks, benefits and alternatives discussed with: patient or business development representative. History & Physical Review History and physical reviewed and following examination; no interval change. . Anesthesia Procedure Notes - Patric Malcolm MD - 10/18/2014 10:33 AM CDTAssociated Order(s): ANE PERIPHERAL/PARAVETEBRAL BLOCK Peripheral nerve block procedure note Pre-Procedure Performed by MD Gold Procedure Times:10/18/2014 10:52 AM and 10/18/2014 11:04 AM Location: pre-op. PreAnesthestic Checklist: patient identified, IV checked, site marked, risks and benefits discussed,informed consent, monitors and equipment checked, pre-op evaluation, at physician/surgeon's request and post-op pain management Timeout Correct Patient: Yes Correct Procedure: Interscalene and Brachial plexus Correct Site: Yes Correct Laterality: Yes Correct Position: Yes Site Marked: Yes Procedure Documentation Procedure: right Interscalene and Brachial plexus Ultrasound guided Ultrasound used to identify targeted nerve, plexus, or vascular marker and placed a needle adjacent to it. ASA 3 Position: supine Prep: povidone-iodine 7.5% surgical scrub, mask and sterile gloves Nerve Stim: Initial Level 0.5 mA. Lowest motor response mA. Needle: insulated (22 G, 2 in). Spinal Needle: (). Insertion Method: Single Shot Assessment/Narrative Injection made incrementally with aspirations every 5 mL. The placement was negative for: blood aspirated, painful injection and site bleedingParesthesia's: No. Comments: 30 ml 0.25% bupivicaine with 1:200,000 epinephrine placed. documented in this encounter Miscellaneous Notes Anesthesia Care Transfer Note - Frank Killian APRN CRNA - 10/18/2014 1:07 PM CDT Anesthesia Care Transfer Note Patient: Sreedhar Bautista Transferred to: PACU Patient vital signs: stable Airway: none documented in this encounter Plan of Treatment Not on filedocumented as of this encounter Procedures Procedure Name Priority Date/Time Associated Diagnosis Comme nts ANE Routine 10/18/2014 11:05 AM Results for this PERIPHERAL/PARAVETE CDT procedur e are in BRAL BLOCK the results section. documented in this encounter Results Peripheral/Paravetebral Block (10/18/2014 11:05 AM CDT) Narrative Patric Malcolm MD - 5 11:05 AM CDT Patric Malcolm MD ? 10/18/2014 11:05 AM Peripheral nerve block procedure note Pre-Procedure Performed by MD Gold Procedure Times:10/18/2014 10:52 AM and 11:04 AM Location: pre-op. ?? PreAnesthestic Checklist: patient identi fied, IV checked, site marked, risks and benefits discussed, in formed consent, monitors and equipment checked, pre-op evaluation , at physician/surgeon's request and post-op pain management Timeout Correct Patient: Yes Correct Procedure: Interscalene and Brachial plexus Correct Site: Yes Correct Laterality: Ye s Correct Position: Yes Site Marked: Yes Procedure Documentation Procedure: ?? right ??Interscalene and B rachial plexus Ultrasound guided ??Ultrasound used to i dentify targeted nerve, plexus, or vascular marker and placed a needle adjacent to it. ASA 3 Position: supine Prep: povidone-iodine 7.5% surgical scru b, mask and sterile gloves Nerve Stim: Initial Level 0.5 mA. Lowest motor response mA. Needle: insulated (22 G, 2 in). Spinal Needle: (). Insertion Method: Single Shot Assessment/Narrative Injection made incrementally with aspira tions every 5 mL. The placement was negative for: blood as pirated, painful injection and site bleedingParesthesia's : No. Comments: 30 ml 0.25% bupivicaine with 1:200,000 e pinephrine placed. Patric Malcolm MD [facility] documented in this encounter Visit Diagnoses Not on filedocumented in this encounter Administered Medications Inactive Administered Medications - up to 3 most recent administrations Medication Order MAR Action Action Date Dose Rate Site Bupivacaine-Epinephrine Given 10/18/2014 11:04 AM CDT 30 mLs 0.25-1:824056 % SOLN PRN, Starting on Sat10/18/14 at 1104, Anesthesia Intra-op ceFAZolin (ANCEF) intermittent infusion 2 g Given 10/18/2014 11: 30 AM CDT 2 g (pre-mix) Routine, 2 g, Intravenous, PRE-OP/PRE-PROCEDURE, Starting on Sat10/18/14 at 1010, For 1 dose, Give first dose within 1 hour PRIOR to incision. If patient weight is greater than or equal to 120 kg change dose to 3 g., Indications: Perioperative Pharmacoprophylaxis, Pre-procedure dexamethasone (DECADRON) injection Given 10/18/2014 11:35 AM CDT 4 mg PRN, Administer over 1-4 Minutes, Starting on Sat10/18/14 at 1135, Anesthesia Intra-op ePHEDrine injection Given 10/18/2014 12:13 PM CDT 10 mg PRN, Starting on Sat10/18/14 at 1159, Anesthesia Intra-op Given 10/18/2014 11:59 AM CDT 10 mg Given 10/18/2014 11:50 AM CDT 5 mg fentaNYL (SUBLIMAZE) injection Given 10/18/2014 12:05 PM CDT 50 mcg PRN, moderate to severe pain, Starting on Sat10/18/14 at 1134, Anesthesia Intra-op Given 10/18/2014 11:34 AM CDT 100 mcg glycopyrrolate (ROBINUL) injection Given 10/18/2014 12:54 PM CDT 0.2 mg PRN, Starting on Sat10/18/14 at 1254, Anesthesia Intra-op lactated ringers infusion New Bag 10/18/2014 12:15 PM CDT at 75-100 mL/hr, Intravenous, CONTINUOUS, UNLESS otherwise indicated., Pre-procedure, Starting on Sat10/18/14 at 1100, Until Sat10/18/14 at 1304 New Bag 10/18/2014 11:07 AM CDT lidocaine 1 % injection Given 10/18/2014 11:34 AM CDT 50 mg PRN, Starting on Sat10/18/14 at 1134, Anesthesia Intra-op midazolam (VERSED) injection Given 10/18/2014 10:52 AM CDT 2 mg PRN, anxiety, Starting on Sat10/18/14 at 1052, Anesthesia Intra-op neostigmine (PROSTIGMINE) injection Given 10/18/2014 12:54 PM CDT 2 mg Intravenous, PRN, Starting on Sat10/18/14 at 1254, Anesthesia Intra-op ondansetron (ZOFRAN) injection Given 10/18/2014 12:57 PM CDT 4 mg PRN, nausea, vomiting, Administer over 2-5 Minutes, Starting on Sat10/18/14 at 1257, Anesthesia Intra-op propofol (DIPRIVAN) injection 10 mg/mL v ial Given 10/18/2014 11:34 AM CDT 200 mg PRN, Starting on Sat10/18/14 at 1134, Anesthesia Intra-op rocuronium (ZEMURON) injection Given 10/18/2014 11:35 AM CDT 40 mg PRN, Starting on Sat10/18/14 at 1134, Anesthesia Intra-op Given 10/18/2014 11:34 AM CDT 10 mg documented in this encounter Care Teams Wood And Hardware Outfitter Relationship Specialty Start Date End Date Zen Rousseau MD PCP - General [facility] 08/01/12 08/09/[address] [address] Zen Rousseau MD MD [facility] 07/31/[address] [address] documented as of this encounter
--- OUTSIDE RECORDS SUMMARY | 2022-04-05 08:02 | XMS_ITS | Encounter Summary ---
:1940 Author Organization [facility] Address [address] [facility] [place] [address] Care Team Providers Name Role Phone Elizabeth Rousseau MD Unavailable Elizabeth Rousseau MD Primary Care Provider Mckenzie Mayorga MD Primary Care Provider Luis Alberto Hernandez MD Primary Care Provider Mckenzie Mayorga MD Primary Care Provider Senthil Mckeon MD Primary Care Provider [phone] Ta Trimble MD Unavailable [phone] Ronnie Myers Primary Care Provider Mali Dowd APRN, CNP Unavailable Encounter Details Date Type Department Care Team Description 10/16/2013 Office Visit-[facility] Craig Godfrey, [facility] [address] [facility] [address] [facility] [address] [place] [address] [place] [address] (Wo rk) Social History Tobacco Use Types Packs/Day Years Used Date Never Assessed Sex Assigned at Date Recorded Not on file documented as of this encounter Progress Notes Craig Godfrey MD - 10/21/2013 11:38 AM CDT Progress Note Created by: Craig Godfrey M.D. DATE: 10/16/2013 DONALDO BAUTISTA DATE OF : 1940 AGE: [age] years old Referring Physician: ELIZABETH ROUSSEAU Referring Clinic: [facility] CURRENT DIAGNOSES 1. - Shortness of Breath, 786.05 2. - Chest Pain-unspecified, 786.50 3. - Hyperlipidemia, 272.4 4. Obesity-(<LT>100'), 278.00 5. - Hypertension, 401.1 6. RI-S/P Inferior, 412 7. CAD, 414.00 ALLERGIES Penicillin, Itching and rash MEDICATIONS (prior to changes made today) 1. Aspirin 81 mg Tablet, 1 p.o. daily 2. benzonatate 200 mg capsule, 1 p.o. three times daily 3. Lisinopril 20 mg Tablet, 1 p.o. twice daily 4. metoprolol tartrate 50 mg tablet, 1/2 p.o. twice daily 5. Niaspan Extended-Release 1,000 mg Tablet Sustained Release, 1 p.o. qHS Take apirin 30 minutes prior to Niaspan. 6. Pravachol 80 mg Tablet, 1 p.o. qHS 7. Protonix 40 mg Tablet, Delayed Release (E.C.), 1 p.o. daily 8. Symbicort 80-4.5 mcg/actuation HFA aerosol inhaler, 1 p.o. PRN as Directed CHIEF COMPLAINTS Followup of - Shortness of Breath HISTORY OF PRESENT ILLNESS It is a pleasure for me to see Mr. Bautista. He is back here again because he has concerns about coughing and feeling fatigued. When I saw him in August, he was doing fine. he has a history of a non-Q wave myocardial infarction for which his OM 2 was revascularized. He has seen his primary physician regarding his cough. He was told that his chest x-ray was fine. He denies a fever. Occasionally, the cough is productive of yellow sputum. There was no PND or orthopnea. He feels fatigued all of the time. I see that he is on lisinopril. His chest was clear on physical exam. PAST HISTORY Past Medical Illnesses: hypercholesterolemia, dyspnea, Hx ETOH, hypertension, obesity, used to smoke but quit, Hx melanoma Past Cardiac Illnesses: chest pain, S/P myocardial infarction-inferolateral Surgeries/Procedures - General: appendectomy, cholecystectomy, colectomy Cardiac/Vasc Procedures-Invasive: L cath -INGRID stent to 2nd OM of circ 06/14 Cardiology Procedures-NonInvasive: stress echo , stress echo February 2002, treadmill cardiolite February 2002, echo 03/10, myocardial perfusion (Nuc) Nov 2010 Cardiac Cath Results: 06/14 LAD mild-mod, circ 99% ostruction of 2nd OM, RCA mild-mod w/severe lesion at crux, mild diffuse hypokinesis, elevated LV end-diastolic pressure PMHx Echo Results: 03/10 mild aortic sclerosis, mod LVH, LVDD PMHx Stress Echo Results: no ischemia, 02/03 no ischemia but 1/ septum not seen, mild con LVH Left Ventricular Ejection Fraction: EF 58% by nuc 02/03, EF 50-55% by cath -Jun 2010, 11/13 EF 63% by nuc Nuclear Results: 02/03 normal, no ischemia, 11/13 stress images show sm/mod inferior and inferlateral wall defect, no change on resting images LVEF of 63% documented via nuclear study on 11/03/2010 FAMILY HISTORY: Father - Age 71, unknown; Mother - alive and well; Brother 1 - Age 58, of cancer; SOCIAL HISTORY Alcohol Use - does not use alcohol; Smoking - does not smoke; Diet - regular diet without modifications and caffeine use-5 or more per day; Exercise - no regular exercise; REVIEW OF SYSTEMS GENERAL negative for energy, fatigue, weight loss, approx 3 lbs, no change in appetite INTEGUMENTARY bruising , thinner skin EYES wears eye glasses/contact lenses, no blurred vision, eye pain, or discharge. EARS, NOSE, THROAT, MOUTH runny nose all of the time, sinusitis RESPIRATORY productive cough, phlegm, dyspnea with and without exertion, wheezing ABDOMINAL GERD , heart burn after drinking coffee and mostly at pm's and none since taking meds GENITOURINARY-MALE nocturia x 2 MUSCULOSKELETAL legs ache at night, candelario horses NEUROLOGICAL hands and feet cold all the time, negative for headaches, has improved PSYCHIATRIC denies any history of depression, substance abuse or change in cognitive functions. ENDOCRINE intolerance to cold, hand and feet always cold HEMATOLOGICAL/IMMUNOLOGIC medication allergies, easy bruising PHYSICAL EXAMINATION VITAL SIGNS: Blood Pressure: 102/72Sitting, Right arm, large cuff Pulse- 75.00/min. Weight- 217.60 lbs. Height- 66 BMI Measurement: 35 CONSTITUTIONAL in no acute distress, appears older than stated age SKIN warm and dry to touch, no apparent skin lesions, or masses noted. HEAD normocephalic, atraumatic EYES Pupils equal and round, conjunctivae and lids unremarkable, sclera white, no xanthalasma ENT ears, nose and throat unremarkable NECK carotid pulses are full and equal bilaterally, JVP normal, no carotid bruit, no thyromegaly CHEST increased A-P diameter, clear to auscultation CARDIAC irregular rhythm, S1 normal, S2 normal, no S3 present, soft S4 present, no murmur present, apical impulse 5th ICS, left MCL, no lifts or thrills palpable ABDOMEN no hepatosplenomegaly, non-tender, moderately obese PERIPHERAL PULSES pulses full and equal in all extremities, no bruits auscultated. EXTREMITIES & BACK no clubbing, cyanosis or edema NEUROLOGICAL no gross motor deficits noted, affect appropriate, oriented to time, person and place. MEDICATIONS UPDATED/STARTED TODAY: benzonatate 200 mg capsule, 1 p.o. three times daily, #0 (Zero) metoprolol tartrate 50 mg tablet, 1/2 p.o. twice daily, #0 (Zero) Symbicort 80-4.5 mcg/actuation HFA aerosol inhaler, 1 p.o. PRN as Directed, #0 (Zero) MEDICATIONS REFILLED/STOPPED TODAY: metoprolol tartrate 50 mg Tablet 1 p.o. twice daily #0 (Zero) Dosage Decreased, Nitrocellulose Aerosol and [place] 1 p.o. PRN as Directed #0 Substitution IMPRESSIONS/PLAN IMPRESSION/PLAN: I do wonder if his continued dry cough is a result of lisinopril. He is on a hefty dose of his medication at 20 mg p.o b.i.d. I have asked him to stop this medication and see what happens. I reassured him that his heart is fine. As for his continued fatigue, there are certainly multiple reasons for this, but I do not think that his heart is one of them. He has had extensive cardiac testing for ischemia after his myocardial infarction. We have not found anything sinister. I think that he should do fine from that aspect. I have asked him to monitor his blood pressure outside of the clinic setting. His current blood pressure was 102 systolic. I think that stopping the lisinopril should be fine. According to the new guidelines for a gentleman of his age, anything less than 150 systolic and 90 diastolic should be just fine. I reassured him. I will see him as he was originally scheduled in the early part of 2014. Craig Godfrey M.D. documented in this encounter Plan of Treatment Not on filedocumented as of this encounter Visit Diagnoses Not on filedocumented in this encounter Care Teams Solo Musician Relationship Specialty Start Date End Date Elizabeth Rousseau MD PCP - General Family Practice 08/01/12 08/09/15 [facility] [address] [facility] [place] [id number] Mckenzie Mayorga MD PCP - General 08/10/15 10/09/15 [facility] [address], [place] [id number] Luis Alberto Hernandez MD PCP - General Family Practice 10/10/15 07/25/16 Mckenzie Mayorga MD PCP - General 07/26/16 12/02/18 [facility] [address], [place] [id number] Senthil Mckeon PCP - General 12/03/18 Ronnie Myers PCP - General Family Medicine 09/11/21 [facility] [address] [place] [address] Elizabeth Rousseau MD MD Family Practice 07/31/12 [facility] [address] [place] [id number] Ta Trimble Assigned Heart and 05/27/20 2 MD [facility] Vascular Provider [address] [place] [id number] Mali Dowd, JERMAINE BUTLER Assigned Heart and 10/08/21 [address] Vascular Provider [place] [address] documented as of this encounter
--- OUTSIDE RECORDS SUMMARY | 2022-04-05 08:02 | XMS_ITS | Encounter Summary ---
:1940 Author Organization [place] Address [address] [facility] [place] [address] Care Team Providers Name Role Phone Zen Rousseau MD Unavailable Zen Rousseau MD Primary Care Provider Reason for Referral - Closed Specialty Diagnoses / Procedures Referred By Contact Refer red To Contact Diagnoses High cholesterol Essential hypertension Coronary artery disease involving [place] coronary artery of [place] heart without angina pectoris Past history of myocardial infarction Edna Jolley MD [address] [place] [address] Referral ID Status Reason Start Date Expiration Date Visits Requ ested Visits Authorized [id number] Closed 09/30/2015 03/28/2016 1 1 L DESIGNER Reason for Visit Reason Comments Heart Problem CAD Encounter Details Date Type Department Care Team Description 09/30/2014 Office Visit Edna Aceves CAD (coron nav artery disease) (Primary Dx); Fabio Guevara MD Past history of myocardial infarction; [facility] [address] High cholesterol; [address] [facility] [address] [place] [id number] Social History Tobacco Use Types Packs/Day Years Used Date Former Smoker Tobacco Cessation: Counseling Given: No Comments: quit about 30 years ago Alcohol Use Standard Drinks/Week Comments No 0 (1 standard drink = 0.6 oz pure alcoho l) once in a while Alcohol Habits Answer Date Recorded How often do you have a drink containing alcohol? Not asked How many drinks containing alcohol do you have on a Not aske d typical day when you are drinking? How often do you have six or more drinks on one Not asked occasion? Comment: once in a while 09/30/2014 Sex Assigned at Date Recorded Not on file documented as of this encounter Last Filed Vital Signs Vital Sign Reading Time Taken Comments Blood Pressure 135/75 09/30/2014 3:42 PM right arm, la rge cuff EMAIL DESIGNER Pulse 68 09/30/2014 3:42 PM regular EMAIL DESIGNER Temperature - - Respiratory Rate - - Oxygen Saturation - - Inhaled Oxygen - - Concentration Weight 100.9 kg (222 lb 8 09/30/2014 3:42 PM oz) EMAIL DESIGNER Height 167.6 cm (5' 6) 09/30/2014 3:42 PM EMAIL DESIGNER Body Mass Index 35.91 09/30/2014 3:42 PM EMAIL DESIGNER documented in this encounter Progress Notes Edna Jolley MD - 09/30/2014 4:35 PM CST September 30, 2014 [place] [id number] RE: Donaldo Bautista : [address] Rousseau: [facility] the [facility] and morbid obesity. Mr. Bautista is a delightful 74-year-old male accompanied by his today status post inferolateral wall myocardial infarction in 06/2010. He went on to have coronary angiography demonstrating high-grade stenosis of the second obtuse marginal branch artery, which was then stented using a drug- eluting stent. He had [id number] disease in his other vessels. He had lateral wall hypokinesis with an ejection fraction of 50%-55%. He denies recurrent angina pectoris. A nuclear stress test performed in 2011 demonstrated the inferolateral wall myocardial infarction and no other areas of ischemia. Ejection fraction was well maintained. The patient has not been exercising to any major extent. His notes that he eats excessive amounts of calories, fat and carbohydrates. He denies PND, orthopnea, peripheral edema, syncope or presyncope. I do not have a recent fasting lipid profile on this patient. He is on pravastatin. Given the guidelines by the [place] [employer] [employer] prevention panel in 06/2013, it was suggested that this type of patient should be on a more aggressive statin protocol given his high risk. This would include either Lipitor, with which he has had myalgias, or Crestor. The patient will be going back to Dr. Rousseau to discuss this. PHYSICAL EXAMINATION: VITAL SIGNS: Current blood pressure is 135/75, pulse 68 and regular, weight is 222-1/2 pounds compared to 221 pounds when I last saw him in 2011. BMI is 36. HEENT: Benign without xanthelasma. CHEST: Clear to auscultation. CARDIAC: Regular rate and rhythm, normal S1 and S2 with an S4 gallop but no S3 or murmur. No JVD. Pulses were all intact without bruits. ABDOMEN: Obese, soft and nontender without organomegaly. EXTREMITIES: Without cyanosis, clubbing or edema. ASSESSMENT: 1. Donaldo Bautista is a pleasant 74-year-old male with numerous cardiovascular risk factors. He quit smoking 30 years ago. He has known coronary artery disease without recurrent angina. His stress test [id number] did not indicate any ongoing ischemia. I would not repeat his stress test until 2017. I would continue his current medications as they are, other than the pravastatin. 2. I had a long discussion with this patient regarding diet, exercise and his weight. I have attempted to explain to him the reasons for a radical change. I have given him a handout on the Mediterranean style diet. We have also talked about eating every 2 hours, small amounts rather than a full meal. The patient is enamored by food and loves to watch food commercials, etc. It will be hard for him to change. 3. We talked about an exercise program on his treadmill every other day starting at 10 minutes and then each week adding 1 minute until he arrives at [address] The patient willgive this his best attempt. 4. The patient needs to be changed from pravastatin to Crestor if at all possible, given the currentguidelines. I have suggested that he talk to Dr. Rousseau regarding this. I have not seen his last lipid profile, so I cannot do this myself. It is my pleasure to assist in the care of Mr. Donaldo Bautista. I will see him again in 1 year, since he is so stable. I am happy to see him at any time in the future, however, and I have given him the direct number to my nurse, in case he has any questions or problems. He saw one of my partners for several years because of his schedule not coinciding with mine. He now will be seeing me annually. Thank you for allowing me to help care for this delightful patient. Best regards, Edna Jolley MD, [facility] EDNA JOLLEY MD, [facility] MT: [place] Name: DONALDO BAUTISTA Account: [id number] : 1940 Service Date: 09/30/2014 Document: [id number] L DESIGNER Edna Jolley MD - 09/30/2014 4:29 PM CST HPI and Plan: See dictation:[id number] Orders Placed This Encounter Procedures ??? Follow-Up with Pc Analyst Orders Placed This Encounter Medications ??? pravastatin (PRAVACHOL) 80 MG tablet Sig: Take 80 mg by mouth daily ??? pantoprazole (PROTONIX) 40 MG enteric coated tablet Sig: Take 40 mg by mouth daily ??? metoprolol (LOPRESSOR) 25 MG tablet Sig: Take 25 mg by mouth 2 times daily ??? nitroglycerin (NITROSTAT) 0.4 MG SL tablet Sig: Place 0.4 mg under the tongue every 5 minutes as needed for chest pain ??? budesonide-formoterol (SYMBICORT) 80-4.5 MCG/ACT inhaler Sig: Inhale 2 puffs into the lungs 2 times daily ??? aspirin 81 MG tablet Sig: Take 81 mg by mouth daily ??? albuterol (2.5 MG/3ML) 0.083% nebulizer solution Sig: Take 1 vial by nebulization every 6 hours as needed for shortness of breath / dyspnea or wheezing There are no discontinued medications. Encounter Diagnoses Name Primary? High cholesterol ??? Hypertension ??? CAD (coronary artery disease) Yes ??? Past history of myocardial infarction CURRENT MEDICATIONS: Current Outpatient Prescriptions Medication Sig Dispense Refill ??? pravastatin (PRAVACHOL) 80 MG tablet Take 80 mg by mouth daily ??? pantoprazole (PROTONIX) 40 MG enteric coated tablet Take 40 mg by mouth daily ??? metoprolol (LOPRESSOR) 25 MG tablet Take 25 mg by mouth 2 times daily ??? nitroglycerin (NITROSTAT) 0.[address] 0.4 mg under the tongue every 5 minutes as needed for chest pain ??? budesonide-formoterol (SYMBICORT) 80-4.5 MCG/ACT inhaler Inhale 2 puffs into the lungs 2 times daily ??? aspirin 81 MG tablet Take 81 mg by mouth daily ??? albuterol (2.5 MG/3ML) 0.083% nebulizer solution Take 1 vial by nebulization every 6 hours as needed for shortness of breath / dyspnea or wheezing ALLERGIES Allergies Allergen Reactions ??? Fish Oil Other (See Comments) Bloody noses ??? Penicillins PAST MEDICAL HISTORY: Past Medical History Diagnosis Date ??? Hypertension ??? High cholesterol ??? CAD (coronary artery disease) mild/mod disease in RCA, INGRID to OM2 ??? Past history of myocardial infarction 06/2010 Non QWave PAST SURGICAL HISTORY: Past Surgical History Procedure Laterality Date ??? Cardiac surgery ??? Coronary angiography adult order 06/2010 INGRID to OM2, RCA mild/mod disease FAMILY HISTORY: No family history on file. SOCIAL HISTORY: History Social History ??? Marital Status: Spouse Name: N/A Number of Children: N/A ??? Years of Education: N/A Social History Main Topics ??? Smoking status: Former Smoker ??? Smokeless tobacco: None Comment: quit about 30 years ago ??? Alcohol Use: No Comment: once in a while ??? Drug Use: None ??? Sexual Activity: None Other Topics Concern ??? Caffeine Concern No 5-6 cups daily ??? Special Diet No ??? Exercise No treadmill for 10 minutes daily Social History Narrative Review of Systems: Skin: Positive for bruising Eyes: Positive for glasses cataract extraction of both eyes ENT: Negative Respiratory: Positive for dyspnea on exertion;cough;wheezing stairs Cardiovascular: Positive for;chest pain sharp pain Gastroenterology: Negative Genitourinary: Positive for nocturia Musculoskeletal: Positive for joint pain right wrist, right shoulder Neurologic: Negative Psychiatric: Positive for anxiety Heme/Lymph/Imm: Negative Endocrine: Negative Physical Exam: Vitals: BP 135/75 Pulse 68 Ht 1.676 m (5' 6) Wt 100.925 kg (222 lb 8 oz) BMI 35.93 kg/m2 Constitutional: cooperative, alert [...] S1 and S2;apical impulse not displaced S4 no presence of murmur Abdomen: abdomen soft, non-tender, BS normoactive, no mass, no HSM, no bruits Vascular: pulses full and equal, no bruits auscultated Extremities and Back: no deformities, clubbing, cyanosis, erythema observed;no edema Neurological: affect appropriate, oriented to time, person and place;no gross motor deficits CC Zen Rousseau MD [facility] [address] [place] [address] L DESIGNER documented in this encounter Plan of Treatment Scheduled Referrals Name Type Priority Associated Diagnoses Order S chedule Follow-Up with Referral Routine High cholesterol Expected: 09/30/2015 Pc Analyst Hypertension (Approximate), CAD (coronary artery Expires : 02/12/2016 disease) Past history of myocardial infarction documented as of this encounter Visit Diagnoses Diagnosis CAD (coronary artery disease) - Primary Coronary atherosclerosis of unspecified type of vessel, [place] or graft Past history of myocardial infarction Old myocardial infarction High cholesterol Pure hypercholesterolemia Hypertension Unspecified essential hypertension documented in this encounter Care Teams Dynamometer Tester Relationship Specialty Start Date End Date Zen Rousseau MD PCP - General Family Practice 08/01/12 08/09/15 [facility] [address] [place] [address] Zen Rousseau MD MD Family Practice 07/31/12 [facility] [address] [place] [address] documented as of this encounter
--- OUTSIDE RECORDS SUMMARY | 2022-04-05 08:02 | XMS_ITS | Encounter Summary ---
:1940 Author Organization [place] Address [address] [facility] [place] [address] Care Team Providers Name Role Phone Zen Rousseau MD Unavailable Luis Alberto Hernandez MD Primary Care Provider Encounter Details Date Type Department Care Team Description 12/08/2015 Orders Only [facility] Abhijit Castañedaterol; Heart Clinic MD Ismael Essential hypertension [address] [place] [phone] Social History Tobacco Use Types Packs/Day [...] Date/Time Associated Diagnosis Comme nts LIPID PROFILE STAT 12/08/2015 7:29 AM High cholesterol Resu lts for this CDT procedure are i n the results section. ALT STAT 12/08/2015 7:29 AM High cholesterol Resul ts for this CDT procedure are i n the results section. BASIC METABOLIC STAT 12/08/2015 7:29 AM Essential Result s for this PANEL CDT hypertension procedure are i n the results section. documented in this encounter Results (ABNORMAL) Basic metabolic panel (12/08/2015 7:29 AM CDT) athologist Signature Sodium 141 133 - 144 [place] mmol/L [facility] Potassium 4.2 3.4 - 5.3 [place] mmol/L [facility] Chloride 105 94 - 109 [place] mmol/L [facility] Carbon Dioxide 32 20 - 32 [place] mmol/L [facility] Anion Gap 4 3 - 14 [place] mmol/L [facility] Glucose 111 (H) 70 - 99 [place] mg/dL [facility] Urea Nitrogen 18 7 - 30 [place] mg/dL [facility] Creatinine 0.91 0.66 - [place] 1.25 mg/dL [facility] GFR Estimate 80 >60 [place] mL/min/1.[address] Comment: Non GFR Calc GFR Estimate If Black >90 >60 mL/min/1.7m2 F [facility] GFR Calc HOSP ITAL Calcium 9.0 8.5 - 10.1 mg/dL [facility] Specimen Anatomical Collection Method Collection Time Receive d Time (Source) Location / / Volume Laterality Blood specimen 12/08/2015 7:29 AM 7:30 (specimen) CDT AM CDT Abhijit Castañeda MD LAB - BLOOD ORDERABLES Performing Organization Address City/State/ZIP Code Phon e Number [facility] [address] [place], [place] [address] [facility] [address] [phone] ALT (12/08/2015 7:29 AM CDT) athologist Signature ALT 25 0 - 70 U/L [facility] Specimen Anatomical Collection Method Collection Time Receive d Time (Source) Location / / Volume Laterality Blood specimen 12/08/2015 7:29 AM 016 7:30 (specimen) CDT AM CDT Abhijit Castañeda MD LAB - BLOOD ORDERABLES Performing Organization Address City/State/ZIP [facility] Phon e Number [facility] [address] [place], [place] [address] [facility] [address] [place] [address] [phone] Lipid Profile (12/08/2015 7:29 AM CDT) P athologist Signature Cholesterol 166 <200 mg/dL [facility] Triglycerides 148 <150 mg/dL [facility] Comment: Fasting specimen HDL Cholesterol 55 >39 mg/dL [facility] LDL Cholesterol Calculated 81 <100 mg/dL [facility] Comment: Desirable: <100 mg/dl Non HDL Cholesterol 111 <130 mg/dL [facility] Specimen Anatomical Collection Method Collection Time Receive d Time (Source) Location / / Volume Laterality Blood specimen 12/08/2015 7:29 AM 016 7:30 (specimen) CDT AM CDT Abhijit Castañeda MD LAB - BLOOD ORDERABLES Performing Organization Address City/State/ZIP Code Phon e Number [place] [address] [address] [place], [place] [address] [facility] [address] [place], [place] [address] [phone] documented in this encounter Visit Diagnoses Diagnosis High cholesterol Pure hypercholesterolemia Essential hypertension Unspecified essential hypertension documented in this encounter Care Teams Pillowcase Maker Relationship Specialty Start Date End Date Luis Alberto Hernandez MD PCP - General Family Practice 10/10/15 07/25/16 Zen Rousseau MD MD Family Practice 07/31/[address] [address] documented as of this encounter
--- OUTSIDE RECORDS SUMMARY | 2022-04-05 08:02 | XMS_ITS | Encounter Summary ---
:1940 Author Organization [place] Address [address] [place] [address] Care Team Providers Name Role Phone Zen Rousseau MD Unavailable Zen Rousseau MD Primary Care Provider Reason for Visit Reason Onset Date Comments Previsit 09/27/2014 09/30/14 OV w/Dr Elia dacosta ([facility]) Encounter Details Date Type Department Care Team Description 09/27/2014 PRE VISIT [facility] Abhijit Castañeda Previsit (09/30/14 [facility] Sapphire Guevara MD w/Dr Castañeda ([facility]) [address] [facility] [address] [facility] [address] [place] [address] [place] [phone] Social History Tobacco Use Types Packs/Day Years Used Date Never Assessed Sex Assigned at Date Recorded Not on file documented as of this encounter Plan of Treatment Not on filedocumented as of this encounter Visit Diagnoses Diagnosis CAD (coronary artery disease) - Primary Coronary atherosclerosis of unspecified type of vessel, elem or graft Past history of myocardial infarction Old myocardial infarction documented in this encounter Care Teams Sccm Administrator Relationship Specialty Start Date End Date Zen Rousseau MD PCP - General Family Practice 08/01/12 08/09/15 [facility] [address] [place] [phone] Zen Rousseau MD MD Family Practice 07/31/[address] [address] documented as of this encounter
--- OUTSIDE RECORDS SUMMARY | 2022-04-05 08:02 | XMS_ITS | Encounter Summary ---
:1940 Author Organization [place] Address [address] [facility] 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 - Closed Specialty Diagnoses / Procedures Referred By Contact Refer red To Contact Diagnoses High cholesterol Essential hypertension Coronary artery disease involving [place] coronary artery of [place] heart without angina pectoris Past history of myocardial infarction Edna Castañeda MD [address] [place] [address] Referral ID Status Reason Start Date Expiration Date Visits Requ ested Visits Authorized [id number] Closed 09/30/2015 03/28/2016 1 1 Encounter Details Date Type Department Care Team Description 10/04/2015 Office Visit Edna Aceves rtery disease involving hyd[place] coronary artery of [place] heart without angina pectoris (Primary Dx); [facility] Heart MD Ismael Past history of myocardial infarction; [facility] [address] High cholesterol; [address] Essential hypertension; [address] [place], [place] [address] [phone] Social History Tobacco Use Types Packs/Day Years [...] Sign Reading Time Taken Comments Blood Pressure 155/65 10/04/2015 3:35 PM right arm, la rge cuff PANEL LAMINATOR Pulse 60 10/04/2015 3:35 PM regular PANEL LAMINATOR Temperature - - Respiratory Rate - - Oxygen Saturation - - Inhaled Oxygen - - Concentration Weight 97.1 kg (214 lb) 10/04/2015 3:35 PM PANEL LAMINATOR Height 167.6 cm (5' 6) 10/04/2015 3:35 PM PANEL LAMINATOR Body Mass Index 34.54 10/04/2015 3:35 PM PANEL LAMINATOR documented in this encounter Progress Notes Edna Castañeda MD - 10/04/2015 5:05 PM CST HISTORY OF PRESENT ILLNESS: I had the pleasure of seeing Mr. Donaldo Bautista at [facility] for evaluation of coronary artery disease, hyperlipidemia, morbid obesity and hypertension. Mr. Bautista is a delightful 75-year-old accompanied by his today status post inferolateral wall myocardial infarction in 06/2010. He went on to have coronary angiography demonstrating high-grade stenosis of the second obtuse marginal branch artery which was then stented using a drug-eluting stent. He had mild to moderate disease in his other vessels. He had lateral wall hypokinesis with an ejection fraction of 50%-55%. He denies recurrent angina. A nuclear stress test performed in 2011 demonstrated the inferolateral wall myocardial infarction and no other areas of ischemia. Ejection fraction is well maintained. His exercise consists of 10-minute walks periodically. His has noted in the past that he eats excessive amounts of calories, fat and carbohydrates. The patient denies PND, orthopnea or peripheral edema, syncope or presyncope. I do not have a fasting lipid profile since last yearwhen his LDL was still at 111 on maximum dose pravastatin. The patient was unable to tolerate Lipitor due to myalgias. His primary care physician, Dr. Rousseau, has retired. The patient's niacin has be en held for the last few weeks by a new physician, Dr. Mckenzie Mayorga The patient states he was having merle on niacin. This was being used for triglycerides. We do recommend the use of niacin for triglycerides given the results of the AIM- HIGH trial. Additionally, the patient is having episodes over thelast 3 months of intermittent diaphoresis and anxiety. This occurs at any time and has occurred 4 times over the last 1-1/2 weeks. It used to occur one time per month and is definitely becoming more frequent. He went to the emergency room for further evaluation on 09/29 and no significant abnormalities were seen in his chest x-ray, EKG or lab tests. Thyroid function tests were normal. The patient quit smoking 35 years ago. He tells me that a brother, age 70, has had a recent NE and stent. He denies recurrent angina pectoris. PHYSICAL EXAMINATION: VITAL SIGNS: Current blood pressure is 155/65, pulse is 60 and regular, weight is 214 pounds, a decrease of 8 pounds from 1 year ago. GENERAL: The patient is a moderately obese white male with a body mass index of 35. HEENT: Benign without xanthelasma. CHEST: Clear to auscultation. CARDIAC: Regular rate and rhythm, normal S1 and S2 with an S4 gallop. There is no S3. He has a 2/6 systolic ejection murmur in the left lower sternal border to the right upper sternal border. No JVD. Pulses were all intact without bruits. ABDOMEN: Obese, soft, nontender without organomegaly. He has a healed cholecystectomy scar. EXTREMITIES: Without cyanosis, clubbing or edema. ASSESSMENT: 1. Donaldo Bautista is a pleasant 75-year-old male with numerous cardiovascular risk factors. He quit smoking greater than 35 years ago. He has known coronary artery disease without recurrent angina. His stress test in 2011 did not indicate any ongoing ischemia. We will repeat his nuclear stress test in 2017. 2. Hyperlipidemia. I have taken the liberty of stopping the patient's pravastatin and starting Crestor 20 mg daily. I have given him 9 weeks of samples. We will recheck his lipids and ALT in 8 weeks. 3. Hypertension. This patient's echocardiogram in 2005 demonstrated moderate LVH at that time as well as aortic sclerosis. We will start Losartan 50 mg daily and recheck a blood pressure and BMP in 2 months. 4. The patient has evidence of aortic valve disease. We will plan an echocardiogram sometime this year to further evaluate this. 5. I have asked this patient to make an appointment with his primary care physician sometime in the next week or two to evaluate his diaphoretic episodes and anxiety. With his recent 8-pound weight loss and diaphoresis we always worry about certain illnesses that need to be evaluated. We discussed possible cancer or other hormonal issues that are possible. It is my pleasure to assist in the care of Donaldo Bautista. I will see him in 2 months with the above tests performed. We will plan an echocardiogram sometime in the next 12 months and a nuclear stress test in 2017. All his questions were answered to his satisfaction and his was present throughout. MD EDNA Degroot MD, [facility] [place]: [place] Name: DONALDO BAUTISTA Account: [id number] : 1940 Service Date: 10/04/2015 Document: [id number] L LAMINATOR Edna Castañeda MD - 10/04/2015 4:57 PM CST HPI and Plan: See dictation:[id number] Orders Placed This Encounter Procedures ??? Lipid Profile ??? ALT ??? Basic metabolic panel ??? Follow-Up with Framing Carpenter Orders Placed This Encounter Medications ??? MAGNESIUM PO Sig: ??? nitroglycerin (NITROSTAT) 0.4 MG SL tablet Sig: Place 1 tablet (0.4 mg) under the tongue every 5 minutes as needed for chest pain Dispense: 25 tablet Refill: 3 ??? rosuvastatin (CRESTOR) 20 MG tablet Sig: Take 1 tablet (20 mg) by mouth daily Dispense: 30 tablet Refill: 0 ??? losartan (COZAAR) 50 MG tablet Sig: Take 1 tablet (50 mg) by mouth daily Dispense: 30 tablet Refill: 11 Medications Discontinued During This Encounter Medication Reason ??? oxyCODONE (ROXICODONE) 5 MG immediate release tablet Therapy completed ??? pravastatin (PRAVACHOL) 80 MG tablet ??? nitroglycerin (NITROSTAT) 0.4 MG SL tablet Reorder Encounter Diagnoses Name Primary? Coronary artery disease involving [place] coronary artery of [place] heart without angina pectoris ??? Past history of myocardial infarction ??? High cholesterol ??? Essential hypertension CURRENT MEDICATIONS: Current Outpatient Prescriptions Medication Sig Dispense Refill ??? MAGNESIUM PO ??? nitroglycerin (NITROSTAT) 0.[address] 1 tablet (0.4 mg) under the tongue every 5 minutes as needed for chest pain 25 tablet 3 ??? rosuvastatin (CRESTOR) 20 MG tablet Take 1 tablet (20 mg) by mouth daily 30 tablet 0 ??? losartan (COZAAR) 50 MG tablet Take 1 tablet (50 mg) by mouth daily 30 tablet 11 ??? Cyanocobalamin (VITAMIN B 12 PO) Take 500 mcg by mouth daily ??? pantoprazole (PROTONIX) [...] of breath / dyspnea or wheezing ??? [DISCONTINUED] nitroglycerin (NITROSTAT) 0.[address] 0.4 mg under the tongue every 5 minutes as needed for chest pain ALLERGIES Allergies Allergen Reactions ??? Fish Oil Other (See Comments) Bloody noses ??? Penicillins Itching PAST MEDICAL HISTORY: Past Medical History Diagnosis Date ??? Hypertension ??? High cholesterol ??? CAD (coronary artery disease) mild/mod disease in RCA, INGRID to OM2 ??? Past history of myocardial infarction 06/2010 Non QWave ??? Stented coronary artery ??? Uncomplicated asthma PAST SURGICAL HISTORY: Past Surgical History Procedure Laterality Date ??? Cardiac surgery ??? Coronary angiography adult order 06/2010 INGRID to OM2, RCA mild/mod disease ??? Colectomy 2007 ??? Arthroscopy shoulder decompression Right 10/18/2014 Procedure: ARTHROSCOPY SHOULDER DECOMPRESSION; Surgeon: Shamar Butterfield MD; Location: [facility] OR FAMILY HISTORY: Family History Problem Relation Age of Onset ??? Diabetes Mother ??? Hypertension Mother SOCIAL HISTORY: History Social History ??? Marital Status: Spouse Name: N/A Number of Children: N/A ??? Years of Education: N/A Social History Main Topics ??? Smoking status: Former Smoker ??? Smokeless tobacco: Never Used Comment: quit about 30 years ago ??? Alcohol Use: No ??? Drug Use: No ??? Sexual Activity: None Other Topics Concern ??? Caffeine Concern No 5-6 cups daily ??? Special Diet No ??? Exercise No treadmill for 10 minutes daily Social History Narrative Review of Systems: Skin: Positive for rash possibly from the niacin PCP discontinued and will recheck blood in 3 mo Eyes: Positive for glasses ENT: Negative Respiratory: Positive for cough;dyspnea on exertion night time uses inhailer to resolve Cardiovascular: Negative Gastroenterology: Positive for heartburn;reflux Genitourinary: Positive for urinary frequency Musculoskeletal: Negative Neurologic: Negative Psychiatric: Positive for anxiety 4 times in the last week and a half Pt gets extremely sweaty Waterjust runs off of him and gets a scared or terrified feeling . Heme/Lymph/Imm: Positive for easy bruising Endocrine: Negative Physical Exam: Vitals: BP 155/65 mmHg Pulse 60 Ht 1.676 m (5' 6) Wt 97.07 kg (214 lb) BMI 34.56 kg/m2 Constitutional: cooperative, alert and oriented, well [...] gross motor deficits CC Zen Rousseau MD [facility] [address] [place] [address] L LAMINATOR documented in this encounter Plan of Treatment Scheduled Referrals Name Type Priority Associated Diagnoses Order S chedule Follow-Up with Referral Routine Coronary artery Expected: 11/30/2015 Framing Carpenter disease involving (Approxima te), [place] coronary artery Expir es: 10/03/2016 of [place] heart without angina pectoris documented as of this encounter Results (ABNORMAL) Basic metabolic panel (12/08/2015 7:29 AM CDT) P athologist Signature Sodium 141 133 - 144 [place] mmol/L [facility] Potassium 4.2 3.4 - 5.3 [place] mmol/L [facility] Chloride 105 94 - 109 [place] mmol/L [facility] Carbon Dioxide 32 20 - 32 [place] mmol/L [facility] Anion Gap 4 3 - 14 [place] mmol/L [facility] Glucose 111 (H) 70 - 99 [place] mg/dL [facility] Urea Nitrogen 18 7 - 30 [place] mg/dL [facility] Creatinine 0.91 0.66 - [place] 1.25 mg/dL [facility] GFR Estimate 80 >60 [place] mL/min/1.7 [facility] m2 [facility] Comment: Non GFR Calc GFR Estimate If Black >90 >60 mL/min/1.7m2 F [facility] GFR Calc HOSP ITAL Calcium 9.0 8.5 - 10.1 mg/dL [facility] Specimen Anatomical Collection Method Collection Time Receive d Time (Source) Location / / Volume Laterality Blood specimen 12/08/2015 7:29 AM 016 7:30 (specimen) CDT AM CDT Edna Castañeda MD LAB - BLOOD ORDERABLES Performing Organization Address City/State/ZIP Code Phon e Number [facility] [address] [employer], [place] [address] [place] [address] [address] [address], [facility] [phone] ALT (12/08/2015 7:29 AM CDT) athologist Signature ALT 25 0 - 70 U/L [facility] Specimen Anatomical Collection Method Collection Time Receive d Time (Source) Location / / Volume Laterality Blood specimen 12/08/2015 7:29 AM 016 7:30 (specimen) CDT AM CDT Edna Castañeda MD LAB - BLOOD ORDERABLES Performing Organization Address City/[facility]/ZIP [facility] Phon e Number [facility] [address] [employer], [place] [address] [address] [phone] [place] [address] [address] [place], [place] [address], [facility] [phone] Lipid Profile (12/08/2015 7:29 AM CDT) athologist Signature Cholesterol 166 <200 mg/dL [facility] Triglycerides 148 <150 mg/dL [facility] Comment: Fasting specimen HDL Cholesterol 55 >39 mg/dL [facility] LDL Cholesterol Calculated 81 <100 mg/dL [facility] Comment: Desirable: <100 mg/dl Non HDL Cholesterol 111 <130 mg/dL [facility] Specimen Anatomical Collection Method Collection Time Receive d Time (Source) Location / / Volume Laterality Blood specimen 12/08/2015 7:29 AM 016 7:30 (specimen) CDT AM CDT Edna Castañeda MD LAB - BLOOD ORDERABLES Performing Organization Address City/State/ZIP Code Phon e Number [facility] [address] [employer], [place] [address] [facility] [address] [place], [place] [address] [address] [phone] documented in this encounter Visit Diagnoses Diagnosis Coronary artery disease involving [place] coronary artery of [place] heart without angina pectoris - Primary Past history of myocardial infarction Old myocardial infarction High cholesterol Pure hypercholesterolemia Essential hypertension Unspecified essential hypertension Aortic valve disorder Aortic valve disorders documented in this encounter Care Teams Learning Center Instructor Relationship Specialty Start Date End Date Mckenzie Mayorga MD PCP - General 08/10/15 10/09/15 [facility] [address] [place] [address] Zen Rousseau MD MD Family [facility] 07/31/[address] [phone] documented as of this encounter
--- OUTSIDE RECORDS SUMMARY | 2022-04-05 08:02 | XMS_ITS | Encounter Summary ---
:1940 Author Organization [place] Address [address] [facility] [place] [address] Care Team Providers Name Role Phone Zen Rousseau MD Unavailable LuisA lberto Hernandez MD Primary Care Provider Mckenzie Mayorga MD Primary Care Provider Reason for Visit Reason Onset Date Comments Prior Auth - Medication 12/08/2015 rosuvastatin (CR ESTOR) 20 MG tablet Encounter Details Date Type Department Care Team Description 12/08/2015 Telephone [facility] Abhijit Castañeda Prior Auth - Medication [facility] (rosuvastatin (CRESTOR) Care[address] 20 MG tablet) [id number] [place] [id number] Social History Tobacco Use Types Packs/Day Years Used Date Former Smoker Smokeless Tobacco: Never Used Comments: quit about 30 years ago Alcohol Use Standard Drinks/Week Comments No 0 (1 standard drink = 0.6 oz pure alcoho l) Sex Assigned at Date Recorded Not on file documented as of this encounter Miscellaneous Notes Telephone Encounter - Denny Mallory - 03/05/2016 8:45 AM CDT Images from the original note were not included. PRIOR AUTHORIZATION DENIED Medication: rosuvastatin (CRESTOR) 20 MG tablet Denial Date: 04/02/2016 Denial Rational: Not eligible for tiering exception. An appeal is available and will require a letter of medical necessity. Appeal Allowed/Information: An Appeal is available. Telephone Encounter - Randolph Azul - 03/01/2016 3:15 PM CDT Images from the original note were not included. [facility] Prior Authorization Team PA Initiation Medication: rosuvastatin (CRESTOR) 20 MG tablet Insurance Company: [employer] Pharmacy Filling the Rx: [id number] - [place], [place] - [address] [address] Filling Pharmacy Filling Pharmacy Start Date: 03/01/2016 documented in this encounter Plan of Treatment Not on filedocumented as of this encounter Visit Diagnoses Not on filedocumented in this encounter Care Teams Publicist Relationship Specialty Start Date End Date Luis Alberto Hernandez MD PCP - General Family Practice 10/10/15 07/25/16 Mckenzie Mayorga MD PCP - General 07/26/16 12/02/18 [facility] [address] [place], [place] [id number] Zen Rousseau MD MD Family Practice 07/31/[address] [phone] documented as of this encounter
--- OUTSIDE RECORDS SUMMARY | 2022-04-05 08:02 | XMS_ITS | Encounter Summary ---
:1940 Author Organization [place] Address [address] [facility] [place] [address] Care Team Providers Name Role Phone Zen Rousseau MD Unavailable Mckenzie Mayorga MD Primary Care Provider Reason for Visit Reason Onset Date Comments Previsit 09/27/2015 Encounter Details Date Type Department Care Team Description 09/27/2015 PRE VISIT [facility] Abhijit Castañeda MD Previsit [facility] [address] [address] [place] [address] [address] [place] [address] [phone] Social History Tobacco Use Types Packs/Day Years [...] Associated Diagnosis Comme nts LIPID PROFILE Routine 02/07/2015 Results for th is procedure are i n the results section . HEMOGLOBIN A1C Routine 02/07/2015 Results for t his procedure are i n the results section . COMPREHENSIVE METABOLIC Routine 02/07/2015 Resu lts for this PANEL procedure are i n the results section . documented in this encounter Results (ABNORMAL) Hemoglobin A1c (02/07/2015) athologist Signature Hemoglobin A1C 6.1 (A) 4.3 - 6.0 [place] % Specimen (Source) Anatomical Location Collection Method / Collectio n Time Received Time / Laterality Volume Blood specimen 02/07/2015 (specimen) [facility] LAB - BLOOD ORD ERABLES Performing Organization Address City/State/ZIP Code Phon e Number [place] (ABNORMAL) Comprehensive metabolic panel (02/07/2015) Analysis Performed At Patho logist Time Signature Sodium 137 mmol/L [place] Potassium 4.6 mmol/L [place] Chloride 97 mmol/L [place] CO2, TOTAL 29 mmol/L [place] Anion Gap mmol/L [facility] Glucose 104 (A) 70 - 99 [place] mg/dL Urea Nitrogen 14 mg/dL [place] Creatinine 0.9 mg/dL [facility] Calcium 9.3 mg/dL [facility] Protein Total 6.9 g/dL [facility] Albumin 3.9 g/dL [facility] Bilirubin Total 1.5 mg/dL [facility] Alkaline 81 U/L [facility] Phosphatase AST 25 U/L [place] ALT 22 U/L [place] Specimen (Source) Anatomical Location Collection Method / Collectio n Time Received Time / Laterality Volume Blood specimen 02/07/2015 (specimen) [facility] LAB - BLOOD ORD ERABLES Performing Organization Address City/State/ZIP Code Phon e Number [facility] (ABNORMAL) Lipid Profile (02/07/2015) Patholo gist Method Time Signature Cholesterol 213 (A) 115 - 199 [place] mg/dL Triglycerides 226 mg/dL [facility] HDL Cholesterol 57 mg/dL [facility] LDL Cholesterol 111 mg/dL [facility] Calculated Non HDL mg/dl [facility] Cholesterol Specimen (Source) Anatomical Location Collection Method / Collectio n Time Received Time / Laterality Volume Blood specimen 02/07/2015 (specimen) [facility] LAB - BLOOD ORD ERABLES Performing Organization Address City/State/ZIP Code Phon e Number [place] documented in this encounter Visit Diagnoses Not on filedocumented in this encounter Care Teams Value Engineer Relationship Specialty Start Date End Date Mckenzie Mayorga MD PCP - General 08/10/15 10/09/[address] [address] Zen Rousseau MD MD Family Practice 07/31/[address] [phone] documented as of this encounter
--- OUTSIDE RECORDS SUMMARY | 2022-04-05 08:02 | XMS_ITS | Encounter Summary ---
:1940 Author Organization [place] Address [address] [facility] [place] [address] Care Team Providers Name Role Phone Zen Rousseau MD Unavailable Mckenzie Mayorga MD Primary Care Provider Reason for Visit Auth/Cert Specialty Diagnoses / Procedures Referred By Contact Refer red To Contact Gastroenterology Diagnoses screening Rh Endoscopy Procedures COLONOSCOPY [address] [place] [address] Phone: Fax: Referral ID Status Reason Start Date Expiration Date Visits Requ ested Visits Authorized [id number] 1 1 Encounter Details Date Type Department Care Team Description 08/15/2016 Surgery [facility] Anna Black, [place] noscopy with Endoscopy Mackenzie MAXWELL multiple polypectomy by [address] METRO cold and hot snare; [place], [place] GASTROINTESTINAL hemoclip placement. [id number] [phone] [place], [place] [address] Surgery Details Date/Time Status Location OR Service Patient Class Case Case Trauma Class Type Case? 08/15/16 Posted GI GI A Gastroenterology Outpatient 10:30 AM Panel 1 Procedure LRB Anes Op Region Wound Class Commen ts Colonoscopy with N/A Conscious Rectum II-Clean Colonosc opy with multiple Sedation Contaminated multiple polypectomy by polypectom y by cold and hot cold and hot snare; hemoclip snare; he moclip placement. placement. COLONOSCOPY, WITH N/A Rectum II-Clean HEMORRHAGE CONTROL Contaminated Surgeon Surgeon Role Service Panel Anna Black MD Primary Gastroenterology 1 Special Needs Myranda Mayorga ([facility]) documented in this encounter Social History Tobacco [...] Sign Reading Time Taken Comments Blood Pressure 180/98 08/15/2016 11:00 AM BODY WIRER Pulse - - Temperature - - Respiratory Rate 24 08/15/2016 11:00 AM BODY WIRER Oxygen Saturation 92% 08/15/2016 11:00 AM BODY WIRER Inhaled Oxygen Concentration - - Weight 93 kg (205 lb) 08/15/2016 10:22 AM BODY WIRER Height 167.6 cm (5' 6) 08/15/2016 10:22 AM BODY WIRER Body Mass Index 33.09 08/15/2016 10:22 AM BODY WIRER documented in this encounter Discharge Instructions Discharge InstructionsTawnya Cristobal RN - 08/15/2016 11:26 AM CST Images from the original note were not [...] the chance of preventing its spread. ?? [phone] [facility], [address] [place] [address], [place] [address]. All rights reserved. This information is not intended as a substitute for professional medical care. Always follow your healthcare professional's instructions. WIRER documented in this encounter Medications at Time [...] artery disease needed for chest pain involving upper [place] coronary artery of upper sioux heart without angina pectoris pantoprazole (PROTONIX) Take 40 mg by mouth 0 40 MG enteric coated every 48 hours tablet losartan (COZAAR) 50 MG Take 1 tablet [...] daily Mixed hyperlipidemia, Coronary artery disease involving upper [place] coronary artery of upper si[place] heart without angina pectoris documented as of this encounter Progress Notes Anna Black MD - 08/15/2016 11:57 AM BODY WIRER Quick Note: Pt informed of results. Will redo in 3 yr. WIRER documented in this encounter H&P Notes Anna Black MD - 08/15/2016 10:18 AM CST Pre-Endoscopy History and Physical Donaldo Bautista Date of : 1940 Age: [age] year old Date of Procedure: 08/15/2016 Primary care provider: Mckenzie Mayorga Type of Endoscopy: Colonoscopy with possible biopsy, possible polypectomy Reason for Procedure: screen Type of Anesthesia Anticipated: Conscious Sedation HPI: Donaldo is a 76 year old male who will be undergoing [...] ??? Stented coronary artery ??? Mixed hyperlipidemia Past Medical History Diagnosis Date ??? Hypertension ??? High cholesterol ??? CAD (coronary artery disease) mild/mod disease in RCA, INGRID to OM2 ??? Past history of myocardial infarction 06/2010 Non QWave ??? Stented coronary artery x1 stent ??? Uncomplicated asthma ??? Colon polyps Past Surgical History Procedure Laterality Date ??? Cardiac surgery 2009 x1 stent ??? Coronary angiography adult order 06/2010 INGRID to OM2, RCA mild/mod disease ??? Colectomy 2007 2007; partial colectomy 1 foot ??? Arthroscopy shoulder decompression Right 10/18/2014 Procedure: ARTHROSCOPY SHOULDER DECOMPRESSION; Surgeon: Shamar Butterfield MD; Location: [facility] OR ??? Colonoscopy Social History Substance Use Topics ??? Smoking status: Former Smoker ??? Smokeless tobacco: Never Used Comment: quit about 30 years ago ??? Alcohol Use: No Family History Problem Relation Age of Onset ??? DIABETES Mother ??? Hypertension Mother Prior to Admission medications Medication Sig Start Date End Date Taking? Authorizing Provider rosuvastatin (CRESTOR) 20 MG tablet Take 1 tablet (20 mg) by mouth daily 12/08/15 Yes Kathy Castañeda MD losartan (COZAAR) 50 MG tablet Take 1 tablet (50 mg) by mouth daily 11/02/15 Yes Abhijit Castañeda MD MAGNESIUM PO Yes Reported, Patient nitroglycerin (NITROSTAT) 0.[address] 1 tablet (0.4 mg) under the tongue every 5 minutes as needed for chest pain 10/04/15 Yes Abhijit Castañeda MD Cyanocobalamin (VITAMIN B 12 PO) Take 500 mcg by mouth daily Yes Reported, Patient pantoprazole (PROTONIX) 40 MG enteric coated tablet Take 40 mg by mouth every 48 hours Yes Reported,Patient metoprolol (LOPRESSOR) 25 MG tablet Take 25 mg by mouth 2 times daily Yes Reported, Patient budesonide-formoterol (SYMBICORT) 80-4.5 MCG/ACT inhaler Inhale 2 puffs into the lungs 2 times dailyYes Reported, Patient aspirin 81 MG tablet Take 81 mg by mouth daily Yes Reported, Patient albuterol (2.5 MG/3ML) 0.083% nebulizer solution Take 1 vial by nebulization every 6 hours as neededfor shortness of breath / dyspnea or wheezing Yes Reported, Patient Allergies Allergen Reactions ??? Fish Oil Other (See Comments) Bloody noses ??? Penicillins Itching REVIEW OF SYSTEMS: 5 point ROS negative except as noted above in HPI, including Gen., Resp., CV, GI & system review. PHYSICAL EXAM: There were no vitals taken for this visit. Estimated body mass index is 35.20 kg/(m^2) as calculatedfrom the following: Height as of 12/08/15: 1.676 m (5' 6). Weight as of 12/08/15: 98.884 kg (218 lb). GENERAL APPEARANCE: alert, and oriented MENTAL STATUS: alert AIRWAY EXAM: Mallampatti Class II (visualization of the soft palate, fauces, and uvula) RESP: lungs clear to auscultation - no rales, rhonchi or wheezes CV: regular rates and rhythm DIAGNOSTICS: Not indicated IMPRESSION ASA Class 2 - Mild systemic disease PLAN: Plan for Colonoscopy with possible biopsy, possible polypectomy. We discussed the risks, benefits and alternatives and the patient wished to proceed. The above has been forwarded to the consulting provider. Signed Electronically by: Anna Black August 15, 2016 WIRER documented in this encounter Nursing Notes Tawnya Cristobal RN - 08/15/2016 11:55 AM CST Pt discharged home in stable condition ,pt denies pain pt instructed to start his blood pressure meds on arrival home WIRER documented in this encounter Plan of Treatment Pending Results Name Type Priority Associated Diagnoses Date/Ti me Surgical pathology exam Lab Routine 08/05 10:53 AM BODY WIRER documented as of this encounter Procedures Procedure Name Priority Date/Time Associated Comments Diagnosis SURGICAL PATHOLOGY Routine 08/15/2016 10:53 EXAM AM BODY WIRER SURGICAL PATHOLOGY Routine 08/15/2016 10:45 Resul ts for this EXAM AM BODY WIRER procedure are i n the results section. COLONOSCOPY Routine 08/15/2016 10:23 Results for this AM BODY WIRER procedure are i n the results section. COLONOSCOPY, WITH 08/15/2016 10:20 polyps HEMORRHAGE CONTROL AM BODY WIRER Special Needs Myranda Mayorga ([facility]) COLONOSCOPY, FLEXIBLE, WITH LESION REMOVAL USING 08/15/2016 10:20 AM BODY WIRER polyps SNARE Special Needs Myranda Mayorga ([facility]) documented in this encounter Results Surgical pathology exam (08/15/2016 10:45 AM BODY WIRER) Component Value Ref Test Analysis Performed At [facility] Method Time Signature Copath Report Patient Name: DONALDO BAUTISTA MR#: [id number] Specimen #: [id number] Collected: 08/15/2016 Received: 08/15/2016 Reported: 08/16/2016 09:15 Ordering Phy(s): ANNA BLACK For improved result formatting, select 'View Enhanced Report Format' under Linked Documents section. SPECIMEN(S): A: Transverse colon polyps x 3 B: Sigmoid colon polyps x 4 FINAL DIAGNOSIS: A: Transverse colon polyps x3, polypectomies. - Multiple fragments of tubular adenomas. ??Negative for hig h grade dysplasia and malignancy. B: Sigmoid colon polyps x4, polypectomies. - Multiple fragments of tubular adenomas. ??Negative for hig h grade dysplasia and malignancy. Electronically signed out by: Arron Lepe M.D. CLINICAL HISTORY: Polyps. GROSS: A: ??The specimen is received in formalin labeled with the p atient's name, identifying information and transverse polypectomy (x 3). ??It consists of 7-8 gamez friable tissue fragments ranging from 0. 1-0.3 cm. Submitted entirely in 1 above. B: ??The specimen is received in formalin labeled with the p atient's name, identifying information and sigmoid polypectomy (x4) . ??It consists of multiple gamez friable tissue fragments, ranging f rom 0.2-0.8 cm. ??The larger fragment inked black and serially sectioned . ??The specimen is submitted entirely in 2 blocks to include the la rger fragment in block 1 and smaller fragments and block 2. (Dict ated by: Nicole Hicks 08/15/2016 12:28 PM) MICROSCOPIC: A and B. Microscopic evaluation performed. CPT Codes: A: 94534-KV0 B: 01653-GP5 TESTING LAB LOCATION: [address] ??[address] COLLECTION SITE: Client: [facility] Location: [facility] (R) Specimen (Source) Anatomical Collection Method Collection Time Re ceived Time Location / / Volume Laterality Polyp LARGE INTESTINE 08/15/2016 10:45 (morphologic PART / Unknown AM BODY WIRER abnormality) Comment: History of colon resection Mckenzie Mayorga RN/Lisbeth Hudson Anna Black MD LAB - [facility] Performing Organization Address City/State/ZIP Code Phon e Number COPATH COLONOSCOPY (08/15/2016 10:23 AM BODY WIRER) [facility] Method Time Signature COLONOSCOPY [facility] RAD IOLOGY RESULTS Patient Name: Donaldo Bautista ?Procedure Date: 08/15/2016 10:23 AM ? Accou nt Number: [id number] Date of : 1940 ?Admit Type: Out patient Age: 76 ? Gender: Male Attending MD: Anna Black MD ?Total Sedation Hugh e: _29____minutes continuous bedside 1:1 Instrument Name: 132 ? Procedure: ?Colonoscopy Indications: ?High ri sk colon cancer surveillance: Personal ?history of colonic po lyps Providers: ?Anna Black MD (Doc tor) Referring MD: ? Mckenzie Mayorga (Referring MD) Medicines: ?Midazolam 2 mg IV, Fentanyl 100 [...] antibiotics. Prior ?Anticoagulants: The patient has taken aspirin, last ?dose was 5 days prior to procedure. ASA Grade ?Assessment: II - A patient [...] and ?oxygen saturations were monitored continuously. The ?[employer] Peds Colonoscope Model #PCF-H190L, ?[place]#132, SN#[id number] was introduced through the ?anus and advanced to the ileocolonic anastomosis. ?The entire colon was examined. ? Findings: ? The perianal and digital rectal examinations were nor mal. ? Eight semi-sessile polyps were found in the sigmoid colon and in the ? transverse colon. The polyps were 3 to 6 mm in size. These polyps were ? removed with a hot snare. Resection and retrieval wer e complete. To ? prevent bleeding after the polypectomy, one hemostati c clip was ? successfully placed. There was no bleeding at the end of the procedure. ? Verification of patient identification for the specim en was done. ? Estimated blood loss was minimal. ? The exam was otherwise without abnormality on d irect and retroflexion ? views. ? The terminal ileum appeared normal. ? Impression: ? - Eight 3 to 6 mm polyps in the sigmoid colon and ?in the transverse colon. Resected and retrieved. ?Clip was placed. ?- The examination was otherwise normal on direct ?and retroflexion view s. ?- The examined portion of the ileum was normal. Recommendation: ? - Await pathology results. ?- No aspirin, ibuprofen, naproxen, or other ?non-steroidal anti-inflammatory drugs for 5 days ?after polyp removal. ? Procedure Code(s): ? --- Professional --- ? 07543, Colonoscopy, flexible, pro ximal to splenic flexure; with removal ? of tumor(s), polyp(s), or other lesion(s) by snare te chnique Diagnosis Code(s): ? --- Professional --- ? 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 D12.5, Benign neoplasm of sigmoid colon CPT copyright 2013 [employer]. All rights reserved. The codes documented in this report are prelimin nav and upon reconciliation machine operator review may be revised to meet current compliance requirements. Electronically signed by Anna Black MD Anna Black MD 08/15/2016 11:06 AM I was physically present for the entire viewing portion of t he exam. Anna Black MD Number of Addenda: 0 Note Initiated On: 08/15/2016 10:23 AM MRN: ?[id number] Procedure Date: ? 08/15/2016 10:23:11 AM Scope Withdrawal Time: 0 hours 22 minutes 54 seconds Total Procedure Duration: 0 hours 26 minutes 56 seconds Estimated Blood Loss: ? Scope In: 10:33:51 AM Scope Out: 11:00:47 AM Specimen (Source) Anatomical Collection Method Collection Time Re ceived Time Location / / Volume Laterality 08/15/2016 10:23 AM BODY WIRER Mckenzie Mayorga MD PROCEDURES Performing Organization Address City/State/ZIP Code Phon e Number RADIOLOGY RESULTS documented in this encounter Visit Diagnoses Not on filedocumented in this encounter Administered Medications Inactive Administered Medications - up to 3 most recent administrations Medication Order MAR Action Action Date Dose Rate Site fentaNYL Citrate (PF) (SUBLIMAZE) Given 08/15/2016 10:36 AM BODY WIRER 50 mcg injection PRN, Starting on Sat08/15/16 at 1032, Intra-procedure Given 08/15/2016 10:32 AM BODY WIRER 50 mcg midazolam (VERSED) injection Given 08/15/2016 10:37 AM BODY WIRER 1 mg PRN, Starting on Sat08/15/16 at 1031, Intra-procedure Given 08/15/2016 10:31 AM BODY WIRER 1 mg documented in this encounter Active and Recently Administered Medications Times are shown in BODY WIRER. PRN Medication Order 08/13/2016 08/14/2016 08/15/2016 fentaNYL Citrate (PF) (SUBLIMAZE) injection (CANCELED) 1032 (Given - Provider: Anna Black MD)1036 (Given - Provider: Makenna Goddard RN - Comment: for discomfort) PRN, Starting Sat08/15/16 at 1032, Intra-procedure midazolam (VERSED) injection (CANCELED) 1031 (Given - Provider: Anna Black MD)1037 (Given - Provider: Makenna Goddard RN - Comment: for discomfort) PRN, Starting Sat08/15/16 at 1031, Intra-procedure documented in this encounter Care Teams Crimping Press Operator Relationship Specialty Start Date End Date Mckenzie Mayorga MD PCP - General 07/26/16 12/02/18 [facility] [address] [place] [address] Zen Rousseau MD MD Family Practice 07/31/[address] [phone] documented as of this encounter
--- OUTSIDE RECORDS SUMMARY | 2022-04-05 08:02 | XMS_ITS | Encounter Summary ---
:1940 Author Organization [place] Address [address] [place] [address] Care Team Providers Name Role Phone Zen Rousseau MD Unavailable Mckenzie Mayorga MD Primary Care Provider Reason for Visit (Routine) - Closed Specialty Diagnoses / Procedures Referred By Contact Refer red To Contact Radiology / Diagnoses written order, sb pt Rh Ultrasound cc Radiology. Procedures US RUDY DOPPLER NO EXERCISE [address] [facility] [address] [place] [address] Phone: Fax: Referral ID Status Reason Start Date Expiration Date Visits Requ ested Visits Authorized [id number] Closed 08/22/2016 08/22/2017 1 1 Encounter Details Date Type Department Care Team Description 08/24/2016 Hospital Encounter [facility] Shawn Kasper, Claudication (H) Jose Ramon Trotter MD Care Center Imaging [facility] [address] [facility] NEUROLOGY [address] [place], [place] [address] [address] [place], [place] [phone] Social History Tobacco Use Types Packs/Day Years [...] artery disease needed for chest pain involving [place] coronary artery of [place] heart without angina pectoris pantoprazole (PROTONIX) Take [...] daily Mixed hyperlipidemia, Coronary artery disease involving [place] coronary artery of [place] heart without angina pectoris documented as of this encounter Plan of Treatment Not on filedocumented as of this encounter Procedures Procedure Name Priority Date/Time Associated Diagnosis Comme nts US RUDY DOPPLER NO Routine 08/24/2016 2:08 PM Claudication (H) Results for this EXERCISE, 1-2 ROUTE SPECIALIST procedure are in LEVELS,?? BILAT the results section. documented in this encounter Results US RUDY Doppler No Exercise (08/24/2016 2:08 PM ROUTE SPECIALIST) Anatomical Region Laterality Modality Extremity Ultrasound Specimen (Source) Anatomical Location Collection Method / Collectio n Time Received Time / Laterality Volume Narrative 08/24/2016 2:17 PM ROUTE SPECIALIST ULTRASOUND RUDY DOPPLER NO EXERCISE ??08/24/2016 2:08 PM HISTORY: Nocturnal calf pain. FINDINGS: Pedal waveforms are triphasic bilaterally. The resting ankle-brachial indices are normal bilate rally at 1.05 on the right and 1.09 on the left. An exercise study was not performed. Nor mal triphasic pedal waveforms and normal resting ankle-brachial indice s bilaterally. EZRA BARAHONA MD Procedure Note Ezra Barahona MD - 08/24/2016Formatti ng of this note might be different from the original. ULTRASOUND RUDY DOPPLER NO EXERCISE 2016 2:08 PM HISTORY: Nocturnal calf pain. FINDINGS: Pedal waveforms are triphasic bilaterally. The resting ankle-brachial indices are normal bilate rally at 1.05 on the right and 1.09 on the left. An exercise study was not performed. Nor mal triphasic pedal waveforms and normal resting ankle-brachial indice s bilaterally. EZRA BARAHONA MD Shawn Kasper MD IMG US ORDERABLES documented in this encounter Visit Diagnoses Diagnosis Claudication (H) Peripheral vascular disease, unspecified documented in this encounter Care Teams Nutrition Services Aide Relationship Specialty Start Date End Date Mckenzie Mayorga MD PCP - General 07/26/16 12/02/18 [facility] [address] [place] [address] Zen Rousseau MD MD Family Practice 07/31/[address] [phone] documented as of this encounter
--- OUTSIDE RECORDS SUMMARY | 2022-04-05 08:02 | XMS_ITS | Encounter Summary ---
:1940 Author Organization [place] Address [address] [place] [address] Care Team Providers Name Role Phone Zen Rousseau MD Unavailable Zen Rousseau MD Primary Care Provider Reason for Visit (Routine) - Closed Specialty Diagnoses / Procedures Referred By Contact Refer red To Contact Radiology / Radiology. Diagnoses sb; Non Epic. Walk in 10/03/13 in the afternoon. Rh Xr ay Procedures XR CHEST 2 VIEWS [address] [place] [address] Phone: Fax: Referral ID Status Reason Start Date Expiration Date Visits Requ ested Visits Authorized [id number] Closed 10/02/2013 10/02/2014 1 1 Encounter Details Date Type Department Care Team Description 10/03/2013 Hospital Encounter [facility] Zen Rousseau [facility] Josse Damico MD [address] [place], [place] [address] [facility] [address] [place], [place] [phone] [address] Social History Tobacco Use Types Packs/Day Years Used Date Never Assessed Sex Assigned at Date Recorded Not on file documented as of this encounter Progress Notes Lorenzo ByersProvider - 10/05/2013 1:53 PM CST [employer]IDE SQUAD COMMANDING OFFICER documented in this encounter Plan of Treatment Not on filedocumented as of this encounter Procedures Procedure Name Priority Date/Time Associated Diagnosis Comme nts XR CHEST 2 VIEWS Routine 10/03/2013 11:49 AM Persistent cough Results for this HOMICIDE SQUAD COMMANDING OFFICER procedure are i n the results section. documented in this encounter Results XR Chest 2 Views (10/03/2013 11:49 AM HOMICIDE SQUAD COMMANDING OFFICER) Anatomical Region Laterality Modality Chest Computed Radiography Specimen (Source) Anatomical Location Collection Method / Collectio n Time Received Time / Laterality Volume Impressions 10/03/2013 2:58 PM HOMICIDE SQUAD COMMANDING OFFICER IMPRESSION: Clear lungs. ? CATRACHITA UREÑA MD Narrative 10/03/2013 2:58 PM HOMICIDE SQUAD COMMANDING OFFICER CHEST TWO VIEWS ??10/03/2013 11:49 AM COMPARISON: Two view chest x-ray 010. HISTORY: Cough. FINDINGS: The cardiac silhouette, pulmon nav vasculature, lungs and pleural spaces are within normal limits. Procedure Note Catrachita Ureña MD - 10/03/2013Forma tting of this note might be different from the original. CHEST TWO VIEWS 10/03/2013 11:49 AM COMPARISON: Two view chest x-ray 010. HISTORY: Cough. FINDINGS: The cardiac silhouette, pulmon nav vasculature, lungs and pleural spaces are within normal limits. IMPRESSION IMPRESSION: Clear lungs. CATRACHITA UREÑA MD Zen Rousseau MD IMG DIAGNOSTIC IMAGING ORDER MYNOR documented in this encounter Visit Diagnoses Diagnosis Persistent cough Cough documented in this encounter Care Teams Foot And Ankle Surgeon Relationship Specialty Start Date End Date Zen Rousseau MD PCP - General Family Practice 08/01/12 08/09/[address] [phone] Zen Rousseau MD MD [facility] Practice 07/31/[address] [phone] documented as of this encounter
--- OUTSIDE RECORDS SUMMARY | 2022-04-05 08:02 | XMS_ITS | Encounter Summary ---
:1940 Author Organization [place] Address [address] [facility] [place] [address] Care Team Providers Name Role Phone Zen Rousseau MD Unavailable Luis Alberto Hernandez MD Primary Care Provider Reason for Visit (Routine) - Closed Specialty Diagnoses / Procedures Referred By Contact Refer red To Contact Radiology / Radiology. Diagnoses Non epic, sb clinic,pt to pup, pt to arrive at [address] Scan [facility] Procedures CT ABDOMEN PELVIS W [address] [place] [address] Phone: Fax: Referral ID Status Reason Start Date Expiration Date Visits Requ ested Visits Authorized [id number] Closed 10/12/2015 10/10/2016 1 1 Encounter Details Date Type Department Care Team Description 10/12/2015 Hospital Encounter [facility] Earl Hernandez, unspecified fever cause; [facility] Luis Alberto Guevara MD Abdominal pain, unspecified abdominal lo cation [address] [place] [address] Social History Tobacco Use Types Packs/Day Years [...] 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 pantoprazole (PROTONIX) Take 40 mg by mouth 0 40 MG enteric coated every 48 hours tablet losartan (COZAAR) 50 MG Take 1 tablet (50 mg) 30 tablet 11 0 10/04/2015 11/02/2015 tabletIndications: by mouth daily Essential hypertension MAGNESIUM PO Take 250 mg by mouth 0 At Bedtime metoprolol (LOPRESSOR) Take 25 mg by mouth 2 0 06/24/2019 25 MG tablet times daily rosuvastatin (CRESTOR) Take 1 tablet (20 mg) 30 tablet 0 12/08/2015 20 MG tablet by mouth daily documented as of this encounter Plan of Treatment Not on filedocumented as of this encounter Procedures Procedure Name Priority Date/Time Associated Diagnosis Comme nts CT ABDOMEN PELVIS W Routine 10/12/2015 3:31 PM Fever, unspecif ied Results for this CONTRAST ORE SMELTER fever cause procedure are in Abdominal pain, the results unspecified section. abdominal location documented in this encounter Results CT Abdomen Pelvis w Contrast (10/12/2015 3:31 PM ORE SMELTER) Anatomical Region Laterality Modality Abdomen/Pelvis, SUBRAD CT BODY, UMP CT ABDOMEN PELVIS Computed Tomography Specimen (Source) Anatomical Location Collection Method / Collectio n Time Received Time / Laterality Volume Impressions 10/12/2015 6:56 PM ORE SMELTER IMPRESSION: 1. A long segment of mildly thick-walled mid ileum in the central abdomen. This is nonspecific, but most l ikely represents infectious or inflammatory enteritis. 2. No other cause of acute pain identifi ed in the abdomen or pelvis. RYLEE KEYS MD Narrative 10/12/2015 6:[address] ABDOMEN AND PELVIS WITH CONTRAST ?? 10/12/2015 3:31 PM HISTORY: Fever. Periumbilical abdominal pain. Unexplained sweating. COMPARISON: None. TECHNIQUE: Following the uneventful admi nistration of 100 mL Isouve-370 intravenous contrast and oral contrast, helical sections were acquired from the top of the diaphr agm through the pubic symphysis. Coronal reconstructions were generated. FINDINGS: Abdomen: 0.5 cm low-attenuation lesion i n the right lobe of liver (series 2 image 17), too small to charac terize. The spleen, pancreas and adrenal glands are unremarkable. 1.6 cm cyst in the inferior pole of the left kidney. 0.6 cm low-attenuati on lesion in the interpolar region of the right kidney. The gallblad claude is not visualized. No enlarged lymph nodes or free fluid in th e upper abdomen. Atherosclerotic calcification in the abd ominal aorta. 2 cm fat containing hernia in the midline anterio r upper abdomen. Scan through the lower chest is signific ant for coronary artery calcification. Pelvis: The small and large bowel are no rmal in caliber. The appendix is not visualized. A long segment of mil dly thick-walled mid ileum in the central abdomen (for example, series 2 image 46). No pneumatosis or free intraperitoneal gas. No enlarged lymph nodes or free fluid in the pelvis. Procedure Note Rylee Keys MD - 10/12/2015Fo rmatting of this note might be different from the original. CT ABDOMEN AND PELVIS WITH CONTRAST 2015 3:31 PM HISTORY: Fever. Periumbilical abdominal pain. Unexplained sweating. COMPARISON: None. TECHNIQUE: Following the uneventful admi nistration of 100 mL Isouve-370 intravenous contrast and oral contrast, helical sections were acquired from the top of the diaphr agm through the pubic symphysis. Coronal reconstructions were generated. FINDINGS: Abdomen: 0.5 cm low-attenuation lesion i n the right lobe of liver (series 2 image 17), too small to charac terize. The spleen, pancreas and adrenal glands are unremarkable. 1.6 cm cyst in the inferior pole of the left kidney. 0.6 cm low-attenuati on lesion in the interpolar region of the right kidney. The gallblad claude is not visualized. No enlarged lymph nodes or free fluid in th e upper abdomen. Atherosclerotic calcification in the abd ominal aorta. 2 cm fat containing hernia in the midline anterio r upper abdomen. Scan through the lower chest is signific ant for coronary artery calcification. Pelvis: The small and large bowel are no rmal in caliber. The appendix is not visualized. A long segment of mil dly thick-walled mid ileum in the central abdomen (for example, series 2 image 46). No pneumatosis or free intraperitoneal gas. No enlarged lymph nodes or free fluid in the pelvis. IMPRESSION: 1. A long segment of mildly thick-walled mid ileum in the central abdomen. This is nonspecific, but most l ikely represents infectious or inflammatory enteritis. 2. No other cause of acute pain identifi ed in the abdomen or pelvis. RYLEE KEYS MD Luis Alberto Hernandez MD IMG CT ORDERABLES documented in this encounter Visit Diagnoses Diagnosis Fever, unspecified fever cause Abdominal pain, unspecified abdominal lo cation documented in this encounter Administered Medications Inactive Administered Medications - up to 3 most recent administrations Medication Order MAR Action Action Date Dose Rate Site 0.9% sodium chloride BOLUS New Bag 10/12/2015 3:17 PM ORE SMELTER 55 mLs Intravenous, 1,000 mL, ONCE, On Sat10/12/15 at 1515, For 1 dose iopamidol (ISOVUE-370) 76% solution 500 mL Given 10/12/2015 3:17 PM ORE SMELTER 100 mLs 500 mL, Intravenous, ONCE, On Sat10/12/15 at 1515, For 1 dose documented in this encounter Care Teams Management Trainer Relationship Specialty Start Date End Date Luis Alberto Hernandez MD PCP - General Family Practice 10/10/15 07/25/16 Zen Rousseau MD MD Family Practice 07/31/[address] [address] documented as of this encounter
--- OUTSIDE RECORDS SUMMARY | 2022-04-05 08:02 | XMS_ITS | Encounter Summary ---
:1940 Author Organization [place] Address [facility] [place] [address] Care Team Providers Name Role Phone Zen Rousseau MD Unavailable Luis Alberto Hernandez MD Primary Care Provider Encounter Details Date Type Department Care Team Description 06/05/2016 Orders Only [facility] Mixed hyperlipidemia [address] [place] [address] Social History Tobacco Use [...] Associated Diagnosis Comme nts LIPID PROFILE Routine 06/05/2016 7:44 AM Mixed hyperlipidemia Results for this CDT procedure are i n the results section . ALT Routine 06/05/2016 7:44 AM Mixed hyperlipidemia R esults for this CDT procedure are i n the results section . documented in this encounter Results ALT (06/05/2016 7:44 AM CDT) P athologist Signature ALT 20 0 - 70 U/L [facility] Specimen Anatomical Collection Method Collection Time Receive d Time (Source) Location / / Volume Laterality Blood specimen 06/05/2016 7:44 AM 016 7:47 (specimen) CDT AM CDT Abhijit Castañeda MD LAB - BLOOD ORDERABLES Performing Organization Address City/[facility]/ZIP [facility] Phon e Number [facility] [address], [place] [address] [facility] [address] [place], [place] [address], [facility] [phone] Lipid Profile (06/05/2016 7:44 AM CDT) Analysis Performed At Patho logist Time Signature Cholesterol 159 <200 mg/dL [facility] Triglycerides 148 <150 mg/dL [facility] HDL Cholesterol 61 >39 mg/dL [facility] LDL Cholesterol 68 <100 mg/dL [facility] Comment: Desirable: <100 mg/dl Non HDL Cholesterol 98 <130 mg/dL [facility] Specimen Anatomical Collection Method Collection Time Receive d Time (Source) Location / / Volume Laterality Blood specimen 06/05/2016 7:44 AM 016 7:47 (specimen) CDT AM CDT Abhijit Castañeda MD LAB - BLOOD ORDERABLES Performing Organization Address City/[facility] Phon e Number [facility] [address], [place] [address] [facility] [address] [place], [place] [address], [facility] [phone] documented in this encounter Visit Diagnoses Diagnosis Mixed hyperlipidemia documented in this encounter Care Teams Breakfast Manager Relationship Specialty Start Date End Date Luis Alberto Hernandez MD PCP - General Family Practice 10/10/15 07/25/16 Zen Rousseau MD MD Family Practice 07/31/[address] [phone] documented as of this encounter
--- OUTSIDE RECORDS SUMMARY | 2022-04-05 08:02 | XMS_ITS | Encounter Summary ---
:1940 Author Organization [place] Address [address] [facility] [place] [address] Care Team Providers Name Role Phone Zen Rousseau MD Unavailable Zen Rousseau MD Primary Care Provider Reason for Visit (Routine) - Closed Specialty Diagnoses / Procedures Referred By Contact Refer red To Contact Radiology / Radiology. Diagnoses non EPIC, mr safe, no contrast, no special needs, ok per [facility] [place] [place] [address] [facility] [address] [place] [address] Phone: Fax: Referral ID Status Reason Start Date Expiration Date Visits Requ ested Visits Authorized [id number] Closed 05/24/2014 05/24/2015 1 1 Encounter Details Date Type Department Care Team Description 05/24/2014 Hospital Encounter [facility] Shamar Butterfield Sp inal stenosis; [facility] MD Alex Weakness [address] [facility] [address] [facility] [place], [place] [address] [address] [address] [place] [address] Social History Tobacco Use Types Packs/Day Years Used Date Never Assessed Sex Assigned at Date Recorded Not on file documented as of this encounter Plan of Treatment Not on filedocumented as of this encounter Procedures Procedure Name Priority Date/Time Associated Diagnosis Comme nts MR LUMBAR SPINE W/O Routine 05/24/2014 7:[address] enosis Results for this CONTRAST CDT Weakness procedure are i n the results section. documented in this encounter Results MR Lumbar Spine w/o Contrast (05/24/2014 7:31 PM CDT) Anatomical Region Laterality Modality Spine, SUBRAD MR MSK, UMP MR SPINE Magne tic Resonance Specimen (Source) Anatomical Location Collection Method / Collectio n Time Received Time / Laterality Volume Impressions 05/25/2014 9:19 AM CDT IMPRESSION: 1. L4-L5 apophyseal joint degenerative a rthrosis, left greater than right. 2. Mild bilateral L3 and L4 foraminal st enosis. GERONIMO RING MD Narrative 05/25/2014 9:19 AM CDT MR LUMBAR SPINE WITHOUT CONTRAST ??05/24/2014 7:31 PM HISTORY: ??Spinal stenosis. TECHNIQUE: Sagittal T1 and T2, sagittal IR, and transverse proton density and T2-weighted pulse sequences. FINDINGS: Five lumbar vertebrae are assu med. Mild to moderate loss of disc signal with normal disc height is n oted throughout the lumbar spine, relatively sparing L5-S1. Vertebr al body heights and sagittal alignment appear within normal limits. M arrow signal is within normal limits. The conus medullaris is unremark able in appearance on the sagittal images. L1-L2, L2-L3: No disc bulge or herniatio n. No central or foraminal stenosis. L3-L4: Mild lateral endplate spurring an d bilateral foraminal stenosis. No central stenosis. L4-L5: Apophyseal joint degenerative art hrosis, greater and moderate on the left. Mild bilateral L4 foraminal stenosis. No central stenosis. L5-S1: Normal. Procedure Note Guille Ring MD - 05/25/2014Formatt ing of this note might be different from the original. MR LUMBAR SPINE WITHOUT CONTRAST 014 7:31 PM HISTORY: Spinal stenosis. TECHNIQUE: Sagittal T1 and T2, sagittal IR, and transverse proton density and T2-weighted pulse sequences. FINDINGS: Five lumbar vertebrae are assu med. Mild to moderate loss of disc signal with normal disc height is n oted throughout the lumbar spine, relatively sparing L5-S1. Vertebr al body heights and sagittal alignment appear within normal limits. M arrow signal is within normal limits. The conus medullaris is unremark able in appearance on the sagittal images. L1-L2, L2-L3: No disc bulge or herniatio n. No central or foraminal stenosis. L3-L4: Mild lateral endplate spurring an d bilateral foraminal stenosis. No central stenosis. L4-L5: Apophyseal joint degenerative art hrosis, greater and moderate on the left. Mild bilateral L4 foraminal stenosis. No central stenosis. L5-S1: Normal. IMPRESSION IMPRESSION: 1. L4-L5 apophyseal joint degenerative a rthrosis, left greater than right. 2. Mild bilateral L3 and L4 foraminal st enosis. GERONIMO RING MD Shamar Butterfield MD IMG MRI ORDERABLES documented in this encounter Visit Diagnoses Diagnosis Spinal stenosis Spinal stenosis, unspecified region othe r than cervical Weakness Other malaise and fatigue documented in this encounter Care Teams Hunter Trapper Relationship Specialty Start Date End Date Zen Rousseau MD PCP - General Family Practice 08/01/12 08/09/[address] [phone] Zen Rousseau MD MD Family Practice 07/31/[address] [phone] documented as of this encounter
--- OUTSIDE RECORDS SUMMARY | 2022-04-05 08:02 | XMS_ITS | Encounter Summary ---
:1940 Author Organization [place] Address [address] [facility] [place] [address] Care Team Providers Name Role Phone Zen Rousseau MD Unavailable Luis Alberto Hernandez MD Primary Care Provider Reason for Visit Reason Onset Date Comments Medication Request 03/05/2016 Crestor Encounter Details Date Type Department Care Team Description 03/05/2016 Telephone [facility] Dipti Henderson computer artist Request Clinic [place] (Crestor) [facility] [address] [place] [address] Social History Tobacco Use Types Packs/Day Years Used Date Former Smoker Smokeless Tobacco: Never Used Comments: quit about 30 years ago Alcohol Use Standard Drinks/Week Comments No 0 (1 standard drink = 0.6 oz pure alcoho l) Sex Assigned at Date Recorded Not on file documented as of this encounter Miscellaneous Notes Telephone Encounter - Dipti Henderson - 03/05/2016 10:24 AM CDT Called to speak with patient regarding PA denial for Crestor. Patient has a few pills left but will be requesting a refill soon. Since Crestor is generic now he would like to request a refill and see what his insurance will cover on the generic form. If he has an issue or if the atwood is too high he will call back. documented in this encounter Plan of Treatment Not on filedocumented as of this encounter Visit Diagnoses Not on filedocumented in this encounter Care Teams Warehouse Person Relationship Specialty Start Date End Date Luis Alberto Hernandez MD PCP - General Family Practice 10/10/15 07/25/16 Zen Rousseau MD MD Family Practice 07/31/[address] [phone] documented as of this encounter
--- OUTSIDE RECORDS SUMMARY | 2022-04-05 08:02 | XMS_ITS | Encounter Summary ---
:1940 Author Organization [place] Address [address] [facility] [place] [address] Care Team Providers Name Role Phone Zen Rousseau MD Unavailable Zen Rousseau MD Primary Care Provider Reason for Visit Auth/Cert - Closed Specialty Diagnoses / Procedures Referred By Contact Refer red To Contact Surgery Diagnoses Rotator cuff tear right shoulder Rh Periop Services Procedures [facility] [address] [place], [place] [address] Fax: Referral ID Status Reason Start Date Expiration Date Visits Requ ested Visits Authorized [id number] Closed 1 1 Encounter Details Date Type Department Care Team Description 10/18/2014 Surgery [facility] Juice Butterfield 1. Right shoulder [facility] PeriOp MD Alex glenohumeral arthroscopy Services [facility] with extensive debridement [address] [facility] and biceps tenotomy. 2. [place], [place] [address] Arthroscop [place] subacromial [phone] [address] bursectomy and rotator cuff [place], [place] debridement. 3. Debridement [phone] and partial resection of [phone] right shoulder os (Work) acromiale. 4. Right shoulder arthroscopic acromioclavicul ar joint resection. Surgery Details Date/Time Status Location OR Service Patient Case Case Traum a Class Class Type Case? 10/18/14 11:20 Posted [facility] OR OR Orthopedics Same Day AM Surgery Panel 1 Procedure LRB Anes Op Region Wound Comment s Class 1. Right shoulder Right Combined General Shoulder I-Clean 1 . Right shoulder glenohumeral with Interscalene gleno humeral arthroscopy with Block arthrosc opy with extensive debridement ext ensive debridement and biceps tenotomy. and biceps tenotomy. 2. Arthroscopic subacromial bursectomy 2. Arthroscopic and rotator cuff subacrom ial debridement. 3. bursectom y and Debridement and rotator c uff partial resection of debr idement. right shoulder os acromiale. 4. Right 3. De bridement and shoulder arthroscopic par tial resection of acromioclavicular right s houlder os joint resection. acromial e. 4. Right shoul claude arthroscopic acromioclavicu lar joint resectio n. Surgeon Surgeon Role Service Panel Juice Butterfield MD Primary Orthopedics 1 Zaira Vasquez PA-C Workers Compensation Claims Analyst Authorizat ion 1 Special Needs 222#, 5'4 stated documented in this encounter Social History Tobacco [...] Sign Reading Time Taken Comments Blood Pressure 161/74 10/18/2014 1:20 PM CDT Pulse - - Temperature 36.2 ??C (97.2 ??F) 10/18/2014 1:05 PM CDT Respiratory Rate 15 10/18/2014 1:20 PM CDT Oxygen Saturation 92% 10/18/2014 1:20 PM CDT Inhaled Oxygen Concentration - - [...] DR. JUICE BUTTERFIELD M.D. CLINIC PHONE NUMBER: [phone] documented in this encounter Medications at Time [...] acromioclavicular joint resection. SURGEON: Juice Butterfield MD ED SPECIAL EDUCATION TEACHER: Zaira Vasquez PA-C ANESTHESIA: General. ESTIMATED BLOOD [...] BUTTERFIELD MD MT: PP Name: DONALDO BAUTISTA Account: [id number] : 1940 Procedure Date: 10/18/2014 Document: [id number] Brief Op Note - Juice Butterfield MD - 10/18/2014 7:24 AM CDT [facility] Brief Operative Note Pre-operative diagnosis: Right shoulder [...] CARDIAC - HIM 10/06/2014 12:00 AM SCAN STRATEGIC PLANNING ANALYST documented in this encounter Results Potassium (10/18/2014 10:55 AM CDT) P athologist Signature Potassium 4.4 3.4 - 5.3 [facility] mmol/L HOSPITAL Specimen Anatomical Collection Method Collection Time Receive d Time (Source) Location / / Volume Laterality Blood specimen 10/18/2014 10:55 5 (specimen) AM CDT 10:58 AM CDT Donaldo Arita DO LAB - BLOOD ORDERABLES Performing Organization Address City/State/ZIP Code Phon e Number M [facility] [address], [place] [address] [facility] [address], [place] [address] Creatinine (10/18/2014 10:55 AM CDT) athologist Signature Creatinine 0.91 0.66 - 1.25 [place] mg/dL [facility] GFR Estimate 81 >60 [place] mL/min/1.7m [address] Comment: Non GFR Calc GFR Estimate If Black >90 >60 mL/min/1.7m2 [facility] GFR Calc HOSP ITAL Specimen Anatomical Collection Method Collection Time Receive d Time (Source) Location / / Volume Laterality Blood specimen 10/18/2014 10:55 5 (specimen) AM CDT 10:58 AM CDT Donaldo Arita DO LAB - BLOOD ORDERABLES Performing Organization Address City/[facility]/ZIP Code Phon e Number M [facility] [address], [place] [address] [facility] [address], [place] [address] Hemoglobin (10/18/2014 10:55 AM CDT) athologist Signature Hemoglobin 13.3 13.3 - 17.7 [facility] g/dL [facility] Specimen Anatomical Collection Method Collection Time Receive d Time (Source) Location / / Volume Laterality Blood specimen 10/18/2014 10:55 5 (specimen) AM CDT 10:58 AM CDT Donaldo Arita DO LAB - BLOOD ORDERABLES Performing Organization Address City/[facility]/ZIP Code Phon e Number M [facility] [address], [place] [address] [facility] [address], [place] [address] Glucose by meter (10/18/2014 10:16 AM CDT) P athologist Signature Glucose 99 60 - 99 POINT OF CARE mg/dL TEST, GLUCOSE Specimen Anatomical Collection Method Collection Time Receive d Time (Source) Location / / Volume Laterality 10/18/2014 10:16 10/18/2014 AM CDT 10:20 AM CDT Juice Butterfield MD [facility] POCT Performing Organization Address City/State/ZIP Code Phon e Number [facility] POINT OF CARE TEST, GLUCOSE POINT OF CARE TEST, GLUCOSE EKG CARDIAC - HIM SCAN (10/06/2014 12:00 AM STRATEGIC PLANNING ANALYST) Specimen (Source) Anatomical Location Collection Method / [...] MAR Action Action Date Dose Rate Site EPINEPHrine 1mg (1mL of 1:1,000) Given 10/18/2014 12:14 PM CDT 3 mLs in 3000mL saline PRN, Starting on Sat10/18/14 at 1214, Intra-procedure sodium chloride 0.9% (bag) irrigation Given 10/18/2014 12:49 PM CDT 7,000 mLs PRN, Starting on Sat10/18/14 at 1249, Intra-procedure documented in this encounter Active and Recently Administered Medications Times are shown in CDT. Scheduled Medication Order 10/16/2014 10/17/2014 10/18/2014 ceFAZolin (ANCEF) intermittent infusion 2 g (pre-mix) (COMPLETED ) 1130 (Given - Provider: Frank Killian APRN PET TECHNOLOGIST - Comment: after neg test dose) 2 g, Intravenous, PRE-OP/PRE-PROCEDURE, Starting Sat10/18/14 at 1010, For 1 dose, Give first dose within 1 hour PRIOR to incision. If patient weight is greater than or equal to 120 kg change dose to 3 g ., Indications: Surgical Prophylaxis, Pre-procedure Continuous Medication Order 10/16/2014 10/17/2014 10/18/2014 lactated ringers infusion (CANCELED) 1107 (New Bag - Provider: Frank Killian APRN PET TECHNOLOGIST)1215 (New Bag - Provider: Frank Jacques Schwichtenberg, STEREO MAP PLOTTER OPERATOR PET TECHNOLOGIST)1302 (Anesthesia Volume Adjustment - Provider: Frank Killian, JERMAINE PET TECHNOLOGIST) at 75-100 mL/hr, Intravenous, CONTINUOUS , UNLESS [...] Intra-procedure documented in this encounter Care Teams Mri Technician Relationship Specialty Start Date End Date Zen Rousseau MD PCP - General [facility] Practice 08/01/12 08/09/[address] [place] [address] Zen Rousseau MD MD [facility] Practice 07/31/12 [facility] [address] [place] [address] documented as of this encounter
--- OUTSIDE RECORDS SUMMARY | 2022-04-05 08:02 | XMS_ITS | Encounter Summary ---
:1940 Author Organization [facility] Address [address] [facility] [place] [address] Care Team Providers Name Role Phone Zen Rousseau MD Unavailable Luis Alberto Hernandez MD Primary Care Provider Reason for Visit Reason Onset Date Comments Results 06/06/2016 FLP Encounter Details Date Type Department Care Team Description 06/06/2016 Telephone [facility] Jos Platt, RN Results (FLP) Clinic [address] [place] [address] Social History Tobacco Use Types Packs/Day Years Used Date Former Smoker Smokeless Tobacco: Never Used Comments: quit about 30 years ago Alcohol Use Standard Drinks/Week Comments No 0 (1 standard drink = 0.6 oz pure alcoho l) Sex Assigned at Date Recorded Not on file documented as of this encounter Miscellaneous Notes Telephone Encounter - Jos Pappas RN - 06/06/2016 1:51 PM CDT Spoke to patients about results below. Verbalized understanding. FLP ordered for [address] Castañeda's result review: Stable lipids/ALT with excellent control. ??Would repeat in one year.?? No change in medications. Thanks. documented in this encounter Plan of Treatment Not on filedocumented as of this encounter Visit Diagnoses Diagnosis Mixed hyperlipidemia - Primary documented in this encounter Care Teams Bow Tacker Relationship Specialty Start Date End Date Luis Alberto Hernandez MD PCP - General Family Practice 3/7/16 12/21/16 Zen Rousseau MD MD Family Practice 07/31/[address] [address] documented as of this encounter
--- OUTSIDE RECORDS SUMMARY | 2022-04-05 08:02 | XMS_ITS | Encounter Summary ---
:1940 Author Organization [facility] Address [address] [facility] [place] [address] Care Team Providers Name Role Phone Zen Rousseau MD Unavailable Mckenzie Mayorga MD Primary Care Provider Reason for Visit Auth/Cert Specialty Diagnoses / Procedures Referred By Contact Refer red To Contact Gastroenterology Diagnoses screening Rh Endoscopy Procedures COLONOSCOPY [address] [place] [address] Phone: Fax: Referral ID Status Reason Start Date Expiration Date Visits Requ ested Visits Authorized [id number] 1 1 Encounter Details Date Type Department Care Team Description 08/15/[address] [facility] Anna Black , Endoscopy Mackenzie MAXWELL [address] [place], [place] GASTROINTESTINAL [id number] [phone] [place] [address] (Wo rk) Social History Tobacco Use Types [...] Sign Reading Time Taken Comments Blood Pressure 166/98 08/15/2016 11:50 AM LIBRARY TECHNOLOGY INSTRUCTOR Pulse - - Temperature - - Respiratory Rate 18 08/15/2016 11:50 AM LIBRARY TECHNOLOGY INSTRUCTOR Oxygen Saturation 98% 08/15/2016 11:50 AM LIBRARY TECHNOLOGY INSTRUCTOR Inhaled Oxygen Concentration - - Weight 93 kg (205 lb) 08/15/2016 10:22 AM LIBRARY TECHNOLOGY INSTRUCTOR Height 167.6 cm (5' 6) 08/15/2016 10:22 AM LIBRARY TECHNOLOGY INSTRUCTOR Body Mass Index 33.09 08/15/2016 10:22 AM LIBRARY TECHNOLOGY INSTRUCTOR documented in this encounter Discharge Instructions Discharge InstructionsTawnya Cristobal, RN - 08/15/2016 11:26 AM CST Images [...] the chance of preventing its spread. ?? [id number] Estuardo Rico, [address] [place] [address], [place] [address]. All rights reserved. This information is not intended as a substitute for professional medical care. Always follow your healthcare professional's instructions. 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 Will redo in 3 yr. ARY TECHNOLOGY INSTRUCTOR documented in this encounter H&P Notes Anna Black MD - 08/15/2016 10:18 AM CST Pre-Endoscopy History and Physical Donaldo Mccann Date of : 1940 Age: [age] year [...] Electronically by: Anna Black August 15, 2016 ARY TECHNOLOGY INSTRUCTOR documented in this encounter Nursing Notes Tawnya Cristobal RN - 08/15/2016 11:55 AM CST Pt discharged home in stable condition ,pt denies pain pt instructed to start his blood pressure meds on arrival home ARY TECHNOLOGY INSTRUCTOR documented in this encounter Plan of Treatment Pending Results Name Type Priority Associated Diagnoses Date/Ti me Surgical pathology exam Lab Routine 08/05 10:53 AM LIBRARY TECHNOLOGY INSTRUCTOR documented as of this encounter Procedures Procedure Name Priority Date/Time Associated Comments Diagnosis SURGICAL PATHOLOGY Routine 08/15/2016 10:53 EXAM AM LIBRARY TECHNOLOGY INSTRUCTOR SURGICAL PATHOLOGY Routine 08/15/2016 10:45 Resul ts for this EXAM AM LIBRARY TECHNOLOGY INSTRUCTOR procedure are i n the results section. COLONOSCOPY Routine 08/15/2016 10:23 Results for this AM LIBRARY TECHNOLOGY INSTRUCTOR procedure are i n the results section. COLONOSCOPY, WITH 08/15/2016 10:20 polyps HEMORRHAGE CONTROL AM LIBRARY TECHNOLOGY INSTRUCTOR Special Needs Myranda Mayorga ([place] [facility]) COLONOSCOPY, FLEXIBLE, WITH LESION REMOVAL USING 08/15/2016 10:20 AM LIBRARY TECHNOLOGY INSTRUCTOR polyps SNARE Special Needs Myranda Mayorga ([place] [facility]) documented in this encounter Results Surgical pathology exam (08/15/2016 10:45 AM LIBRARY TECHNOLOGY INSTRUCTOR) Component Value Ref Test Analysis Performed At [facility] gist Range Method Time Signature Copath Report Patient Name: DONALDO MCCANN MR#: [id number] Specimen #: [id number] Collected: 08/15/2016 Received: 08/15/2016 [...] received in formalin labeled with the p penny's name, identifying information and sigmoid polypectomy (x4) [...] B. Microscopic evaluation performed. CPT Codes: A: 42624-FD2 B: 26480-VZ5 TESTING LAB LOCATION: [address] ??[address] COLLECTION SITE: Client: [facility] Location: [facility] (R) Specimen (Source) Anatomical Collection Method Collection Time Re ceived Time Location / / Volume Laterality Polyp LARGE INTESTINE 08/15/2016 10:45 (morphologic PART / Unknown AM LIBRARY TECHNOLOGY INSTRUCTOR abnormality) Comment: History of colon resection Mckenzie Mayorga RN/Lisbeth Hudson Anna Black MD LAB - [facility] Performing Organization Address City/State/ZIP Code Phon e Number [place] COLONOSCOPY (08/15/2016 10:23 AM LIBRARY TECHNOLOGY INSTRUCTOR) [facility] gist Method Time Signature COLONOSCOPY [facility] RAD IOLOGY RESULTS Patient Name: Donaldo Mccann ?Procedure Date: 08/15/2016 10:23 AM ? Accou nt Number: [id number] Date of : 1940 ?Admit Type: Out [...] and ?oxygen saturations were monitored continuously. The ?[employer] Colonoscope Model #PCF-H190L, ?[place]#132, SN#[id number] was introduced through the ?anus and advanced [...] Procedure Code(s): ? --- Professional --- ? 63333, Colonoscopy, flexible, pro ximal to splenic flexure; with removal ? of tumor(s), polyp(s), or other lesion(s) by rigoberto roberts Diagnosis Code(s): ? --- Professional --- ? 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 D12.5, Benign neoplasm of sigmoid colon CPT copyright 2013 [employer]. All rights reserved. The codes documented in this report are prelimin nav and upon manager interface review may be revised to meet current compliance requirements. Electronically signed by Anna Black MD Anna Black MD 08/15/2016 11:06 AM I was physically present for the entire viewing portion of t he exam. Anna Black MD Number of Addenda: 0 Note Initiated On: 08/15/2016 10:23 AM MRN: ?[id number] Procedure Date: ? 08/15/2016 10:23:11 AM Scope Withdrawal Time: 0 hours 22 minutes 54 seconds Total Procedure Duration: 0 hours 26 minutes 56 seconds Estimated Blood Loss: ? Scope In: 10:33:51 AM Scope Out: 11:00:47 AM Specimen (Source) Anatomical Collection Method Collection Time Re ceived Time Location / / Volume Laterality 08/15/2016 10:23 AM LIBRARY TECHNOLOGY INSTRUCTOR Mckenzie Mayorga MD PROCEDURES Performing Organization Address City/State/ZIP Code Phon e Number RADIOLOGY RESULTS documented in this encounter Visit Diagnoses Not on filedocumented in this encounter Active and Recently Administered Medications Times are shown in LIBRARY TECHNOLOGY INSTRUCTOR. PRN Medication Order 08/13/2016 08/14/2016 08/15/2016 fentaNYL Citrate (PF) (SUBLIMAZE) injection (CANCELED) 1032 (Given - Provider: Anna Black MD)1036 (Given - Provider: Makenna Goddard RN - Comment: for discomfort) PRN, Starting 08/15/16 at 1032, Intra-procedure midazolam (VERSED) injection (CANCELED) 1031 (Given - Provider: Anna Black MD)1037 (Given - Provider: Makenna Goddard RN - Comment: for discomfort) PRN, Starting 08/15/16 at 1031, Intra-procedure documented in this encounter Care Teams Flame Burner Relationship Specialty Start Date End Date Mckenzie Mayorga MD PCP - General 07/26/16 12/02/18 [facility] [address] [place] [address] Zen Rousseau MD MD Family Practice 07/31/[address] [address] documented as of this encounter
--- OUTSIDE RECORDS SUMMARY | 2022-04-05 08:02 | XMS_ITS | Encounter Summary ---
:1940 Author Organization [place] Address [address] [facility] [place] [address] Care Team Providers Name Role Phone Zen Rousseau MD Unavailable Zen Rousseau MD Primary Care Provider Reason for Visit Reason Comments Dizziness Encounter Details Date Type Department Care Team Description 05/24/2014 Emergency [facility] Vamsi Moyer UTI ( urinary tract infection) (Primary Dx); [facility] Emergency Dep briseyda Schwarz MD Hyponatremia; [address] [facility] EMERGENCY PHYSIC[facility]ANS Malaise; [place], [place] Cough [phone] [address] [phone] [address] [place], [place] [address] (Wo rk) Social History Tobacco Use Types Packs/Day Years Used Date Never Assessed Sex Assigned at Date Recorded Not on file documented as of this encounter Last Filed Vital Signs Vital Sign Reading Time Taken Comments Blood Pressure 159/86 05/24/2014 7:04 PM CDT Pulse 114 05/24/2014 7:04 PM CDT Temperature 37.9 ??C (100.3 ??F) 05/24/2014 7:04 PM CDT Respiratory Rate 22 05/24/2014 7:04 PM CDT Oxygen Saturation 94% 05/24/2014 7:37 PM CDT Inhaled Oxygen Concentration - - Weight - - Height - - Body Mass Index - - documented in this encounter Discharge Instructions Discharge InstructionsVamsi Moyer MD - 05/24/2014 9:42 PM CDT Images from the original note were not included. Home Back SP RU CH *BLADDER INFECTION:Male (Adult) A bladder infection (cystitis or UTI) usually causes a constant urge to urinate, and a burning when passing urine. Urine may be cloudy, smelly or dark. There may be also be pain in the lower abdomen. Cystitis in males is not common. It may be caused by a partial blockage in the urinary system that keeps the bladder from emptying completely. This is most often related to an enlarged prostate gland. HOME CARE: 1. Drink lots of fluids (at least 6-8 glasses a day). This will flush the bacteria out of your bladder. Cranberry juice has been shown to help clear out the bacteria. 2. Avoid sexual intercourse until your symptoms are gone. 3. A bladder infection is treated with antibiotics. You may also be given Pyridium (generic - phenazopyridine) to reduce burning with urination. This will cause urine to become a bright orange color, which can stain clothing. FOLLOW UP with your doctor or this facility if ALL symptoms have not cleared within five days. It isimportant to keep your follow up appointment to discuss with your doctor the need for further tests of the urinary tract. GET PROMPT MEDICAL ATTENTION if any of the following occur: ?? Fever over 101?? F (38.3?? C) ?? No improvement by the third day of treatment ?? Increasing back or abdominal pain ?? Repeated vomiting; unable to keep medicine down ?? Weakness, dizziness or fainting ?? [id number] [employer], [address] [place] [address], [place] [address]. All rights reserved. This information is not intended as a substitute for professional medical care. Always follow your healthcare professional's instructions. documented in this encounter Medications at Time of Discharge Medication Sig Dispensed Refills Start Date End Date ciprofloxacin (CIPRO) 500 Take 1 tablet (500 14 tablet 0 05/31/2014 MG tablet mg) by mouth 2 times daily for 7 days documented as of this encounter ED Notes Vamsi Moyer MD - 05/24/2014 7:18 PM CDT History Chief Complaint: I am peeing a lot HPI Sreedhar Bautista is a 74 year old male with a history of a asthma and COPD who comes to the ED for evaluation of I am peeing a lot. The patient reports he started having increased frequency and urgency with decreased urine output the last two days. No incontinence or sense of incomplete voiding. He reports increased frequency today, up to every hour as well as feeling unsteady and that I hurt fromhead to toe for which he presents to the ED today. He denies fever, chills, or bowel irregularities. Additionally, the patient reports a cough for the last 3 days with no sputum production. He thinks it could be a flair from his seasonal allergies, and also dust to which he was recently exposed. The patient receives Albuterol nebulizer treatments with most recent treatment last night. Earlier today, the patient was seen by Dr. Butterfield for chronic lower back and leg pain and had an MRI of his Lumbar spine with no results back yet. He denies diaphoresis, shortness of breath or new leg pain. No recent antibiotics or medication changes. Allergies: Penicillins Medications: The patient is not currently taking any prescribed medications. Past Medical History: HTN High cholesterol Asthma COPD Past Surgical History: Cardiac surgery Family History: History reviewed. No pertinent family history. Social History: Tobacco use: N. Alcohol use: N. Marital Status: . Accompanied to ED by: . Review of Systems Constitutional: Negative for fever and chills. Respiratory: Positive for cough. Negative for shortness of breath. Cardiovascular: Negative for chest pain and palpitations. Gastrointestinal: Negative for nausea, vomiting, abdominal pain, diarrhea and constipation. Genitourinary: Positive for urgency, frequency and decreased urine volume. Negative for dysuria, hematuria and flank pain. Musculoskeletal: Positive for myalgias. All other systems reviewed and are negative. Physical Exam First Vitals: BP: 159/86 mmHg Pulse: 114 --> 100s (after neb) Temp: 100.3 ??F (37.9 ??C) Resp: 22 SpO2: 94 % RA Physical Exam General: nontoxic appearing male in B12 HENT: mucous membranes moist CV: tachycardic rate, regular rhythm Resp: minimally increased RR, clear throughout, no crackles or wheezing GI: abdomen soft and nontender, no guarding MSK: no bony tenderness, no CVAT Skin: appropriately warm and dry Neuro: alert, clear speech, oriented, no meningismus Psych: normal mood and affect, pleasant Emergency Department Course ECG (19:13:09): Rate 110 bpm. ME interval 178. QRS duration 88. QT/QTc 330/446. P-R-T axes 65 20 59. Sinus tachycardia. Biatrial enlargement. Abnormal ECG. Interpreted at 19:30. Imaging: Radiographic findings were communicated with the patient who voiced understanding of the findings. Xr Chest: No pulmonary infiltrates. Flattened diaphragms. Normal heart size and pulmonary vascularity. Probable old left lateral fractures. No change. Final result per radiology. ANDREY ALEJO MD Laboratory: CBC: WNL (WBC 9.3, HGB 14.2, PLT 155) BMP: Na 129 Low, o/w WNL (Creatinine 1.03) Lactic Acid: 0.9 Blood culture: pending UA: blood small, leukocyte esterase trace, mucous present, urineketon 80, WBC 6 high, RBC 4 high Urine culture: pending Interventions: 19:48- Sodium Chloride 0.9% Bolus 1,000 mL IV 20:32- Toradol 15 mg injection IV 19:37- Duoneb 6 ml nebulization 21:55- Rocephin 1 g injection IV Emergency Department Course: Nursing notes and vitals reviewed. I performed an exam of the patient as documented above. GCS 15 IV inserted and blood drawn. The patient was placed on continuous blood pressure monitoring and pulse oximeter. The patient was sent for a Chest XR while in the emergency department, findings above. The patient provided a urine sample here in the emergency department. This was sent for laboratory testing, findings above The interventions above were provided for the patient while in the ED. The patient was rechecked following the interventions provided above, and symptoms have improved. 21:35-Rechecked the patient. He feels much better and would like to go home. Findings and plan explained to the Patient. Patient discharged home with instructions regarding supportive care, medications, and reasons to return. The importance of close follow-up was reviewed. The patient was prescribed Cipro. I personally reviewed the laboratory results with the Patient and answered all related questions prior to discharge. Impression & Plan Medical Decision Making: This very pleasant gentlemen presents with urinary symptoms as well as generalized malaise. He showssome evidence of urinary tract infection, though not fully convincing urinalysis. Given his symptoms, I think antibiotic treatment in most appropriate. He has no CVA tenderness to support diagnosis for pyelonephritis. Despite triage note of neck pain, he does not mention this as one of his multiple symptoms. I do not suspect an acute cervical spine process or meningitis that would warrant additional imaging or testing a this time. His breathing has improved with a nebulizer treatment and without infiltrate, or hypoxia, I do no think antibiotics or steroid burst for pulmonary process are appropriate. He is moving good air. We discussed his return precautions for flank pain, prolonged fevers, or vomiting or other acute concerns. He was otherwise advised to follow up with his primary physician in 2-3 days for recheck. Diagnosis: Visit Diagnosis, Associated Orders, and Comments ICD-9-CM 1. UTI (urinary tract infection) 599.0 2. Hyponatremia 276.1 3. Malaise 780.79 4. Cough 786.2 I, Lenora Fuller, am serving as a scribe at 7:18 PM on 05/24/2014 to document services personally performed by Dr. Moyer, based on the provider's statements to me. Lenora Fuller 05/24/2014 [facility] EMERGENCY DEPARTMENT Vamsi Moyer MD 05/25/14 1107 Cassi Rondon, RN - 05/24/2014 7:05 PM CDT Pt complaining of two days of dizziness, neck pain and not wanting to eat or drink. ABCs intact. Alert and oriented x 3. documented in this encounter Plan of Treatment Not on filedocumented as of this encounter Procedures Procedure Name Priority Date/Time Associated Comments Diagnosis ROUTINE UA WITH STAT 05/24/2014 8:50 PM Result s for this MICROSCOPIC CDT procedure are i n the results section. URINE CULTURE Routine 05/24/2014 8:50 PM UTI (urinary tract Re sults for this CDT infection) procedure are i n the results section. XR CHEST 2 VIEWS STAT 05/24/2014 8:23 PM Resul ts for this CDT procedure are i n the results section. CBC WITH PLATELETS & STAT 05/24/2014 7:43 PM R esults for this DIFFERENTIAL CDT procedure are i n the results section. LACTIC ACID STAT 05/24/2014 7:43 PM Results f or this CDT procedure are i n the results section. BLOOD CULTURE STAT 05/24/2014 7:43 PM UTI (urinary tract Re sults for this CDT infection) procedure are i n the results section. BASIC METABOLIC PANEL STAT 05/24/2014 7:43 PM Results for this CDT procedure are i n the results section. EKG 12-LEAD, TRACING STAT 05/24/2014 7:13 PM R esults for this ONLY CDT procedure are i n the results section. documented in this encounter Results Urine culture (05/24/2014 8:50 PM CDT) Component Value Ref Test Analysis Performed At [facility] Range Method Time Signature Specimen Midstream Urine [facility] LAB Special Specimen [facility] Requests received in MICROBIOLOGY preservative Culture Micro <10,000 [facility] colonies/mL MICROBIOLOGY urogenital niesha Micro Report FINAL [facility] Status 05/26/2014 MICROBIOLOGY Specimen Anatomical Collection Method Collection Time Receive d Time (Source) Location / / Volume Laterality 05/24/2014 8:50 PM 4 CDT 10:20 PM CDT Vamsi Moyer MD LAB - MICRO GENERAL ORDERABL ES Performing Organization Address City/State/[facility] Code Phon e Number [address] LAB [facility] MICROBIOLOGY (ABNORMAL) UA with Microscopic (05/24/2014 8:50 PM CDT) [facility] Method Time Signature Color Urine Yellow [facility] LAB Appearance Urine Clear [facility] LAB Glucose Urine Negative NEG mg/dL [facility] Bilirubin Urine Negative NEG [facility] LAB Ketones Urine 80 (A) NEG mg/dL [facility] LAB Specific [place] 1.010 1.003 - [place] Urine 1.035 [facility] Blood Urine Small (A) NEG [facility] LAB pH Urine 6.0 5.0 - 7.0 [place] pH [facility] Protein Albumin 10 (A) NEG mg/dL [facility] LAB Urobilinogen Normal 0.0 - 2.0 [place] mg/dL mg/dL [facility] Nitrite Urine Negative NEG [facility] LAB Leukocyte Trace (A) NEG [place] Esterase Urine [facility] Source Midstream [place] Urine [facility] WBC Urine 6 (H) 0 - 2 [facility] RBC Urine 4 (H) 0 - 2 [facility] Mucous Urine Present (A) NEG /LPF [facility] LAB Specimen Anatomical Collection Method Collection Time Receive d Time (Source) Location / / Volume Laterality Urine specimen URINE SPECIMEN 05/24/2014 8:50 PM 05/24 9:02 (specimen) OBTAINED BY CLEAN CDT PM CDT CATCH PROCEDURE / Unknown Vamsi Moyer MD LAB - URINE ORDERABLES Performing Organization Address City/State/ZIP Code Phon e Number [facility] [address], [place] [address] [facility] XR Chest 2 Views (05/24/2014 8:23 PM CDT) Anatomical Region Laterality Modality Chest Computed Radiography Specimen (Source) Anatomical Location Collection Method / Collectio n Time Received Time / Laterality Volume Impressions 05/24/2014 8:27 PM CDT IMPRESSION: No pulmonary infiltrates. Flattened diaphragms. Normal heart size and pulmonary vascularity. Pr obable old left lateral fractures. No change. ANDREY ALEJO MD Narrative 05/24/2014 8:27 PM CDT CHEST TWO VIEWS ??05/24/2014 8:23 PM HISTORY: ? Short of breath. Fever. COMPARISON: 10/03/2013 Procedure Note Andrey Alejo MD - 05/24/2014Formatt ing of this note might be different from the original. CHEST TWO VIEWS 05/24/2014 8:23 PM HISTORY: Short of breath. Fever. COMPARISON: 10/03/2013 IMPRESSION IMPRESSION: No pulmonary infiltrates. Fl attened diaphragms. Normal heart size and pulmonary vascularity. Pr obable old left lateral fractures. No change. ANDREY ALEJO MD Vamsi Moyer MD IMG DIAGNOSTIC IMAGING ORDER MYNOR Lactic acid (05/24/2014 7:43 PM CDT) P athologist Signature Lactic Acid 0.9 0.4 - 2.0 [place] mmol/L [facility] Specimen Anatomical Collection Method Collection Time Receive d Time (Source) Location / / Volume Laterality Blood specimen 05/24/2014 7:43 PM 014 8:02 (specimen) CDT PM CDT Vamsi Moyer MD LAB - BLOOD ORDERABLES Performing Organization Address City/State/ZIP Code Phon e Number [facility] [address] [place] [address] [facility] Blood culture (05/24/2014 7:43 PM CDT) Component Value Ref Test Analysis Performed At [facility] gist Range Method Time Signature Specimen Right Arm [facility] LAB Special Aerobic and [facility] anaerobic [facility] LAB bottles received Culture Micro No growth [facility] MICROBIOLOGY Micro Report FINAL [facility] Status 05/30/2014 MICROBIOLOGY Specimen Anatomical Collection Method Collection Time Receive d Time (Source) Location / / Volume Laterality Blood specimen STRUCTURE OF RIGHT 05/24/2014 7:43 PM 1 (specimen) UPPER LIMB / CDT 10:31 PM CDT Unknown Vamsi Moyer MD LAB - MICRO GENERAL ORDERABL ES Performing Organization Address City/State/ZIP Code Phon e Number [address] [address] [facility] LAB [facility] MICROBIOLOGY (ABNORMAL) Basic metabolic panel (05/24/2014 7:43 PM CDT) P athologist Signature Sodium 129 (L) 133 - 144 [place] mmol/L [facility] Potassium 4.0 3.4 - 5.3 [place] mmol/L [facility] Chloride 95 94 - 109 [place] mmol/L [facility] Carbon Dioxide 26 20 - 32 [place] mmol/L [facility] Anion Gap 8 3 - 14 [place] mmol/L [facility] Glucose 96 70 - 99 [place] mg/dL [facility] Comment: Effective 03/03/2014, the reference range for this assay has changed to reflect new instrumentation/methodology. Urea Nitrogen 11 7 - 30 mg/dL [facility] Comment: Effective 03/03/2014, the reference range for this assay has changed to reflect new instrumentation/methodology. Creatinine 1.03 0.66 - 1.25 mg/dL [facility] GFR Estimate 70 >60 mL/min/1.7m2 [facility] Comment: Non GFR Calc GFR Estimate If Black 85 >60 mL/min/1.7m2 [facility] Comment: GFR Calc Calcium 8.6 8.5 - 10.1 mg/dL [facility] Comment: Effective 03/03/2014, the reference range for this assay has changed to reflect new instrumentation/methodology. Specimen Anatomical Collection Method Collection Time Receive d Time (Source) Location / / Volume Laterality Blood specimen 05/24/2014 7:43 PM 014 8:02 (specimen) CDT PM CDT Vamsi Moyer MD LAB - BLOOD ORDERABLES Performing Organization Address City/State/ZIP Code Phon e Number [place] [address] [place] [address] [facility] CBC with platelets differential (05/24/2014 7:43 PM CDT) [facility] gist Method Time Signature WBC 9.3 4.0 - [place] 11.0 [facility] 10e9/L [facility] RBC Count 4.83 4.4 - 5.9 [place] 10e12/L [facility] Hemoglobin 14.2 13.3 - [place] 17.7 g/dL [facility] Hematocrit 42.9 40.0 - [place] 53.0 % [facility] MCV 89 78 - 100 [facility] LAB MCH 29.4 26.5 - [facility] 33.0 pg [facility] MCHC 33.1 31.5 - [place] 36.5 g/dL [facility] RDW 13.8 10.0 - [place] 15.0 % [facility] Platelet Count 155 150 - 450 [place] 10e9/L [facility] Diff Method Automated [facility] % Neutrophils 72.3 % [facility] % Lymphocytes 20.1 % [facility] % Monocytes 6.1 % [facility] % Eosinophils 0.5 % [facility] % Basophils 0.2 % [facility] LAB % Immature 0.8 % [place] Granulocytes [facility] Absolute 6.7 1.6 - 8.3 [place] Neutrophil 10e9/L [facility] Absolute 1.9 0.8 - 5.3 [place] Lymphocytes 10e9/L [facility] Absolute 0.6 0.0 - 1.3 [place] Monocytes 10e9/L [facility] Absolute 0.1 0.0 - 0.7 [place] Eosinophils 10e9/L [facility] Absolute 0.0 0.0 - 0.2 [place] Basophils 10e9/L [facility] Abs Immature 0.1 0 - 0.4 [place] Granulocytes 10e[facility] Specimen Anatomical Collection Method Collection Time Receive d Time (Source) Location / / Volume Laterality Blood specimen 05/24/2014 7:43 PM 014 8:02 (specimen) CDT PM CDT Vamsi Moyer MD LAB - BLOOD ORDERABLES Performing Organization Address City/State/ZIP Code Phon e Number [place] [address], [place] [address] [facility] EKG 12 lead (05/24/2014 7:13 PM CDT) [facility] gist Method Time Signature Interpretation ECG Click View RADIOLOGY Image link RESULTS to view waveform and result Specimen (Source) Anatomical Collection Method Collection Time Re ceived Time Location / / Volume Laterality 05/24/2014 7:13 PM CDT Vamsi Moyer MD ECG ORDERABLES Performing Organization Address City/[facility]/ZIP [facility] Phon e Number RADIOLOGY RESULTS documented in this encounter Visit Diagnoses Diagnosis UTI (urinary tract infection) - Primary Urinary tract infection, site not specif ied Hyponatremia Hyposmolality and/or hyponatremia Malaise Other malaise and fatigue Cough documented in this encounter Administered Medications Inactive Administered Medications - up to 3 most recent administrations Medication Order MAR Action Action Date Dose Rate Site cefTRIAXone (ROCEPHIN) 1 g vial to New Bag 05/24/2014 9:55 PM CDT 1 g attach to IVPB STAT, 1 g, Intravenous, ONCE, On Sat05/24/14 at 2141, For 1 dose, Indications: Urinary Tract Infection ipratropium - albuterol 0.5 mg/2.5 mg/3 mL Given 05/24/2014 7:37 PM CDT 6 mLs (DUONEB) nebulizer solution 6 mL 6 mL, Nebulization, ONCE, On Sat05/24/14 at 1929, For 1 dose ketorolac (TORADOL) injection 15 mg Given 05/24/2014 8:32 PM CDT 15 mg 15 mg, Intravenous, ONCE, On Sat05/24/14 at 1929, For 1 dose sodium chloride 0.9 % BOLUS 1,000 mL New Bag 05/24/2014 7:48 PM CDT 1,000 mLs Intravenous, 1,000 mL, ONCE, On Sat05/24/14 at 192, For 1 dose documented in this encounter Active and Recently Administered Medications Times are shown in CDT. Scheduled Medication Order 05/22/2014 05/23/2014 05/24/2014 cefTRIAXone (ROCEPHIN) 1 g vial to attach to IVPB (COMPLETED) 2154 (New Bag - Provider: Tori Gibbs RN)2215 (Stopped - Provider: Tori Gibbs, RN) STAT, 1 g, Intravenous, ONCE, On Sat at 2141, For 1 dose, Indications: Urinary Tract Infection ipratropium - albuterol 0.5 mg/2.5 mg/3 mL (DUONEB) nebulizer solution 6 mL (COMPLETED) 1936 (Given - Provid er: Albert Lyles, RT) 6 mL, Nebulization, ONCE, Sat05/24/14 at 192, For 1 dose ketorolac (TORADOL) injection 15 mg (COMPLETED) 2031 (Given - Provider: oTri Gibbs, RN) 15 mg, Intravenous, ONCE, Sat05/24/14 at 1929, For 1 dose sodium chloride 0.9 % BOLUS 1,000 mL (COMPLETED) 1947 (New Bag - Provider: Tori Gibbs, YEN)2215 (Stopped - Provider: Tori Gibbs, RN) Intravenous, 1,000 mL, ONCE, On Sat05/24/14 at 1929, For 1 dose documented in this encounter Care Teams High Pressure Operator Relationship Specialty Start Date End Date Zen Rousseau MD PCP - General Family Practice 08/01/12 08/09/15 [facility] [address] [place], [place] [address] Zen Rousseau MD MD Family Practice 07/31/12 [facility] [address] [place] [address] documented as of this encounter
--- OUTSIDE RECORDS SUMMARY | 2022-04-05 08:02 | XMS_ITS | Encounter Summary ---
:1940 Author Organization [place] Address [address] [facility] [place] [address] Care Team Providers Name Role Phone Zen Rousseau MD Unavailable Luis Alberto Hernandez MD Primary Care Provider Reason for Visit Reason Onset Date Comments Previsit 12/06/2015 Encounter Details Date Type Department Care Team Description 12/06/2015 PRE VISIT [facility] Abhijit Castañeda MD Previsit [facility] [place] [address] [address] [address] [place] [address] [address] [place] [address] [phone] Social History Tobacco Use Types Packs/Day Years [...] on filedocumented in this encounter Care Teams Car Wiper Relationship Specialty Start Date End Date Luis Alberto Hernandez MD PCP - General Family Practice 10/10/15 07/25/16 Zen Rousseau MD MD Family Practice 07/31/[address] [address] documented as of this encounter
--- OUTSIDE RECORDS SUMMARY | 2022-04-05 08:02 | XMS_ITS | Encounter Summary ---
:1940 Author Organization [facility] Address [address] [facility] [place] [address] Care Team Providers Name Role Phone Zen Rousseau MD Unavailable Mckenzie Mayorga MD Primary Care Provider Reason for Visit Reason Comments Anxiety Encounter Details Date Type Department Care Team Description 09/29/2015 Emergency [facility] Luis Alberto Salinas MD Hyperhydrosis disorder [facility] Emergency Dep t [facility] [address] [place], [place] [address] [facility] [address] [place], [place] [id number] (Wo rk) Social History Tobacco Use Types [...] Sign Reading Time Taken Comments Blood Pressure 135/78 09/29/2015 4:15 PM TILE PRESSER Pulse 60 09/29/2015 1:03 PM TILE PRESSER Temperature 36.6 ??C (97.8 ??F) 09/29/2015 1:03 PM TILE PRESSER Respiratory Rate 18 09/29/2015 1:03 PM TILE PRESSER Oxygen Saturation 95% 09/29/2015 4:15 PM TILE PRESSER Inhaled Oxygen Concentration - - Weight - - Height - - Body Mass Index - - documented in this encounter Discharge Instructions Discharge Luis Alberto Appiah MD - 09/29/2015 4:10 PM CST If you develop other symptoms during your sweating episodes, return to Emergency Room, otherwise follow up with PCP or partner care transition manager tomorrow. Remember that you can always come back to the Emergency Department if you are not able to see your regular doctor in the amount of time listed above, if you get any new symptoms, or if there is anything that worries you. PRESSER documented in this encounter Medications at Time [...] tablet daily documented as of this encounter ED Notes Luis Alberto Salinas MD - 09/29/2015 1:29 PM CST History Chief Complaint: Anxiety HPI Sreedhar Bautista is a 75 year old male with a history of CAD, IA, and s/p stent placement who presentswith diaphoresis and anxiety. The patient reports earlier today he developed sudden onset diaphoresis which last approximately one hour and resolved without intervention. The patient also reports of anxiety as he describes as scared to feeling following onset of symptoms today. The patient hada similar episode and duration one week ago while playing cards as well as 6 episodes over the course of several months. The patient endorses as much as 7 cups of coffee per day but denies any other sources of caffeine. The patient denies any increase in his baseline shortness of breath while walking. The patient denies any history of anxiety or depression. The patient denies tingling sensation, light headedness, palpations, chest pain, focal weakness, headache, visual disturbance, no fever, dysuria, increased urinary frequency, cough, abdominal pain, or any other pains. He denies feeling ill, febrile, nor has he had any chills. He has had no sore throat, vomiting or diarrhea. The sweats have not occurred at night-time and they have covered his head, and at least his neck; he states his shirt gets soaked. They do not come on after a large meal, just seem to occur randomly. He has not started any new medications recently, not taking any herbal remedies nor any new OTC medications. I asked him why he came in today instead of during his previous 6 episodes and he said his witnessed this one today and forced me to come here. When asked, she states he was profusely diaphoretic, very apparent on his forehead and face with beads of sweat. Otherwise she denies other signs, he looked otherwise fine. In addition, he denies prodromal symptoms such as severe pain, palpitations, nausea, need tovoid or defecate; nor does he feel syncopal or vertiginous. Allergies: Allergies Allergen Reactions ??? Fish Oil Other (See Comments) Bloody noses ??? Penicillins Itching Medications: Pravachol Protonix Lopressor Symbicort Aspirin Albuterol Nitrostat Past Medical History: Hypertension High Cholesterol CAD IA Stented coronary artery Uncomplicated asthma Past Surgical History: Cardiac Surgery Coronary angiogram Shoulder Decompression Family / Social History: The patient is . The patient is a former smoker. The patient denies alcohol consumption. The patient has no pertinent family history. Review of Systems Constitutional: Positive for diaphoresis (resolved). Respiratory: Negative for cough. Cardiovascular: Negative for chest pain. Gastrointestinal: Negative for abdominal pain. Genitourinary: Negative for dysuria and frequency. Neurological: Negative for weakness, light-headedness, numbness and headaches. Psychiatric/Behavioral: The patient is nervous/anxious (resolved). Physical Exam First Vitals: BP: 148/69 mmHg Pulse: 60 Temp: 97.8 ??F (36.6 ??C) Resp: 18 SpO2: 97 % Physical Exam General: Resting comfortably on the gurney, overweight. Head: The scalp, face, and head appear normal Eyes: The pupils are equal, round, and reactive to light ENT: Serous changes behind left TM The oropharynx is normal. CV: Regular rate and rhythm. Neck: No meningismus No mumur Resp: Lungs are clear. Normal, non-labored respirations. No rales, rhonchi, or wheezing. GI: Abdomen is soft, no rigidity. Nontender. No rebound or guarding. No distension. MS: Normal muscular tone. No leg swelling. No calf tenderness. Skin: No rash or lesions noted. Dry. Neuro: Speech is normal No focal neurological deficits detected Psych: Awake. Alert. Normal affect. Appropriate interactions. Does not currently appear anxious. Lymph: No anterior or posterior cervical lymphadenopathy noted. Emergency Department Course ECG: Indication: diaphoresis Completed at 1259. Read at 1306. Rate 62 bpm. UT interval 156. QRS duration 92. QT/QTc 404/410. P-R-T axes 61 8 51. normal sinus rhythm, normal ECG Imaging: Radiographic findings were communicated with the patient who voiced understanding of the findings. Chest X-ray (PA & LAT): No focal infiltrates. Probable old left rib fractures. Flattened hemidiaphragms and increased AP diameter suggesting emphysematous changes. No acute process. Results per radiology. Laboratory: CBC: WBC 12.9 (H), ow wnl (HGB 14.2, PLT 176) CMP: Bili 1.4 (H), ow wnl (Creat 1.22) TSH: 1.95 Magnesium: 2.1 Glucose: 98 1414 Troponin: 0.00 UA: Mucous Present, ow wnl Emergency Department Course: Nursing notes and vitals reviewed. I performed an exam of the patient as documented above. Blood drawn and urine collected. This was sent to the lab for further testing, results above. The above imaging study(s) and ECG were ordered with results noted above. Findings and plan explained to the Patient. Patient discharged home with instructions regarding supportive care, medications, and reasons to return. The importance of close follow-up was reviewed. Impression & Plan Medical Decision Making: Sreedhar Bautista is a 75 year old male who has episodes of hyperhidrosis of unclear etiology There is no focus of infection. It sounds like they can occur while he is awake only. There is no provocative stimulus that could cause them of which he is aware. In addition, he has no other associated symptomsother than he feels a sense of doom when he has them. They do last about an hour. He has been havingthem for about 3-4 months. He has not seen his doctor yet. His WBC is elevated with a left shift, but there is no focal source of infection, he is afebrile here, and he reports feeling healthy, except for the episodic hyper-hydrosis. He does have a history of heart disease but denies any symptoms and has not been having any chest pain, neck, back, jaw, arm, shoulder tightness of any sort. His stents were placed in 2009. His urine is clear. Chest xray clear. Normal white count. He denies a sore throat and any other infectious symptoms. I am concerned that he could have an acquired endocrine problem which could be the source of his sweating. Carcinoid tumor would be in the differential, as would hyperthyroidism, and phe ochromocytoma, but there seem to be a dearth of other symptoms and signs. I've also considered anxiety, but he denies any history of anxiety or depression. I told him that he needs close follow up and the next step will be to call his PCP tomorrow to begin further investigation. Diagnosis: ICD-10-CM 1. 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 Episodic hyperhidrosis of unclear etiology Plan: Follow up with his primary care doctor tomorrow. If he feels new symptoms associated with thisor other problems he should return to the department. I, Jadon Hogan, am serving as a scribe at 1:31 PM on 09/29/2015 to document services personally performed by Dr. Salinas, based on my observations and the provider's statements to me. Luis Alberto Salinas MD 09/30/15 0511 Luis Alberto Salinas MD 09/30/15 0514 PRESSER Jess Max RN - 09/29/2015 12:57 PM CST Pt had sudden onset of scarred to feeling Anxious feeling; denies chest pain; sob; was severe diaphoretic ; aox3 abc's intact PRESSER documented in this encounter Plan of Treatment Not on filedocumented as of this encounter Procedures Procedure Name Priority Date/Time Associated Comments Diagnosis ROUTINE UA WITH STAT 09/29/2015 3:49 PM Result s for this MICROSCOPIC TILE PRESSER procedure are i n the results section. XR CHEST 2 VIEWS STAT 09/29/2015 2:47 PM Resul ts for this TILE PRESSER procedure are i n the results section. TROPONIN POCT Routine 09/29/2015 2:14 PM Results for this TILE PRESSER procedure are i n the results section. CBC WITH PLATELETS & STAT 09/29/2015 2:10 PM R esults for this DIFFERENTIAL TILE PRESSER procedure are i n the results section. TSH WITH FREE T4 STAT 09/29/2015 2:10 PM Resul ts for this REFLEX TILE PRESSER procedure are i n the results section. MAGNESIUM STAT 09/29/2015 2:10 PM Results f or this TILE PRESSER procedure are i n the results section. COMPREHENSIVE STAT 09/29/2015 2:10 PM Results for this METABOLIC PANEL TILE PRESSER procedure ar e in the results section. GLUCOSE BY METER Routine 09/29/2015 1:14 PM Resul ts for this TILE PRESSER procedure are i n the results section. EKG 12-LEAD, TRACING STAT 09/29/2015 12:59 Res ults for this ONLY PM TILE PRESSER procedure are i n the results section. documented in this encounter Results (ABNORMAL) UA with Microscopic (09/29/2015 3:49 PM TILE PRESSER) [facility] Method Time Signature Color Urine Yellow [facility] Appearance Urine Clear [facility] Glucose Urine Negative NEG mg/dL [facility] Bilirubin Urine Negative NEG [facility] Ketones Urine Negative NEG mg/dL [facility] Specific Ava 1.017 1.003 - [facility] Urine 1.035 [facility] Blood Urine Negative NEG [facility] pH Urine 5.0 5.0 - 7.0 [facility] pH [facility] Protein Albumin Negative NEG mg/dL [facility] Urine [facility] Urobilinogen Normal 0.0 - 2.0 [facility] mg/dL mg/dL [facility] Nitrite Urine Negative NEG [facility] Leukocyte Negative NEG [facility] Esterase Urine [facility] Source Midstream [facility] WBC Urine 1 0 - 2 [facility] RBC Urine 0 0 - 2 [facility] Mucous Urine Present (A) NEG /LPF [facility] Specimen Anatomical Collection Method Collection Time Receive d Time (Source) Location / / Volume Laterality Urine specimen URINE SPECIMEN 09/29/2015 3:49 PM 09/29 3:53 (specimen) OBTAINED BY CLEAN TILE PRESSER PM TILE PRESSER CATCH PROCEDURE / Unknown Luis Alberto Salinas MD LAB - URINE ORDERABLES Performing Organization Address City/State/ZIP Code Phon e Number [place] [address] [address] [place] [address] [facility] [address] [phone] XR Chest 2 Views (09/29/2015 2:47 PM TILE PRESSER) Anatomical Region Laterality Modality Chest Computed Radiography Specimen (Source) Anatomical Location Collection Method / Collectio n Time Received Time / Laterality Volume Impressions 09/29/2015 3:23 PM TILE PRESSER IMPRESSION: ??No focal infiltrates. Probable old left rib fractures. Flattened hemidiaphragms and increased A P diameter suggesting emphysematous changes. No acute process. SAQIB HODGE MD Narrative 09/29/2015 3:23 PM TILE PRESSER XR CHEST 2 VW ??09/29/2015 2:47 PM HISTORY: ??diaphoresis COMPARISON: ??05/24/14 Procedure Note Saqib Hodge MD - 6 XR CHEST 2 VW 09/29/2015 2:47 PM HISTORY: diaphoresis COMPARISON: 05/24/14 IMPRESSION: No focal infiltrates. Probab le old left rib fractures. Flattened hemidiaphragms and increased A P diameter suggesting emphysematous changes. No acute process. SAQIB HODGE MD Luis Alberto Salinas MD IMG DIAGNOSTIC IMAGING ORDER MYNOR Troponin POCT (09/29/2015 2:14 PM TILE PRESSER) athologist Signature Troponin I 0.00 0.00 - 0.10 POINT OF CARE ug/L TEST, HANDHELD METER Specimen Anatomical Collection Method Collection Time Receive d Time (Source) Location / / Volume Laterality 09/29/2015 2:14 PM 6 2:35 TILE PRESSER PM TILE PRESSER Luis Alberto Salinas MD LAB - ENTER/EDIT POCT Performing Organization Address City/[facility]/ZIP [facility] Phon e Number F[facility] POINT OF CARE TEST, HANDHELD METER POINT OF CARE TEST, HANDHELD METER Magnesium (09/29/2015 2:10 PM TILE PRESSER) athologist Signature Magnesium 2.1 1.6 - 2.3 [facility] mg/dL [facility] Specimen Anatomical Collection Method Collection Time Receive d Time (Source) Location / / Volume Laterality Blood specimen 09/29/2015 2:10 PM 016 2:32 (specimen) TILE PRESSER PM TILE PRESSER Luis Alberto Salinas MD LAB - BLOOD ORDERABLES Performing Organization Address [facility] Phon e Number M [facility] [address] [place], [place] [address] [place] [address] [address] [place] [id number] [phone], [facility] [phone] TSH with free T4 reflex (09/29/2015 2:10 PM TILE PRESSER) athologist Signature TSH 1.95 0.40 - 4.00 [facility] mU/L [facility] Specimen Anatomical Collection Method Collection Time Receive d Time (Source) Location / / Volume Laterality Blood specimen 09/29/2015 2:10 PM 016 2:32 (specimen) TILE PRESSER PM TILE PRESSER Luis Alberto Salinas MD LAB - BLOOD ORDERABLES Performing Organization Address [facility] Phon e Number M [facility] [address] [place], [place] [address] [facility] [address] [place] [id number] [phone], [facility] [phone] (ABNORMAL) Comprehensive metabolic panel (09/29/2015 2:10 PM TILE PRESSER) P athologist Signature Sodium 139 133 - 144 [facility] mmol/L [facility] Potassium 4.1 3.4 - 5.3 [facility] mmol/L [facility] Chloride 103 94 - 109 [facility] mmol/L [facility] Carbon Dioxide 29 20 - 32 [facility] mmol/L [facility] Anion Gap 7 3 - 14 [facility] mmol/L [facility] Glucose 93 70 - 99 [facility] mg/dL [facility] Urea Nitrogen 22 7 - 30 [facility] mg/dL [facility] Creatinine 1.22 0.66 - [facility] 1.25 mg/dL [facility] GFR Estimate 58 (L) >60 [facility] mL/min/1.7 [facility] m2 [facility] Comment: Non GFR Calc GFR Estimate If Black 70 >60 mL/min/1.7m2 F [facility] Comment: GFR Calc Calcium 8.9 8.5 - 10.1 mg/dL [facility] Bilirubin Total 1.4 (H) 0.2 - 1.3 mg/dL [facility] Albumin 3.5 3.4 - 5.0 g/dL [facility] Protein Total 7.0 6.8 - 8.8 g/dL [facility] Alkaline Phosphatase 62 40 - 150 U/L [facility] ALT 30 0 - 70 U/L [facility] AST 19 0 - 45 U/L [facility] Specimen Anatomical Collection Method Collection Time Receive d Time (Source) Location / / Volume Laterality Blood specimen 09/29/2015 2:10 PM 016 2:32 (specimen) TILE PRESSER PM TILE PRESSER Luis Alberto Salinas MD LAB - BLOOD ORDERABLES Performing Organization Address City/State/ZIP Code Phon e Number M [facility] [address] [place], [place] [address] [facility] [address] [place] [address] [phone] (ABNORMAL) CBC with platelets differential (09/29/2015 2:10 PM TILE PRESSER) Patholo gist Method Time Signature WBC 12.9 (H) 4.0 - [facility] [address] RBC Count 4.76 4.4 - 5.9 [facility] 10e12/L [facility] Hemoglobin 14.2 13.3 - [facility] 17.7 g/dL [facility] Hematocrit 44.2 40.0 - [facility] 53.0 % [facility] MCV 93 78 - 100 [facility] fl [facility] MCH 29.8 26.5 - [facility] 33.0 pg [facility] MCHC 32.1 31.5 - [facility] 36.5 g/dL [facility] RDW 13.2 10.0 - [facility] 15.0 % [facility] Platelet Count 176 150 - [address] Diff Method Automated [facility] Method [facility] % Neutrophils 73.5 % [facility] % Lymphocytes 18.2 % [facility] % Monocytes 6.8 % [facility] % Eosinophils 0.3 % [facility] % Basophils 0.2 % [facility] % Immature 1.0 % [facility] Granulocytes [facility] Nucleated RBCs 0 0 /100 [facility] Absolute 9.5 (H) 1.6 - 8.3 [facility] Neutrophil [facility] Absolute 2.4 0.8 - 5.3 [facility] Lymphocytes [address] [place] [address] Absolute 0.9 0.0 - 1.3 [facility] Monocytes [address] [place] [address] Absolute 0.0 0.0 - 0.7 [facility] Eosinophils [address] [place] [address] Absolute 0.0 0.0 - 0.2 [facility] Basophils [address] [place] [address] Abs Immature 0.1 0 - 0.4 [facility] Granulocytes [address] [place] [address] Absolute 0.0 [facility] Nucleated RBC [facility] Specimen Anatomical Collection Method Collection Time Receive d Time (Source) Location / / Volume Laterality Blood specimen 09/29/2015 2:10 PM 016 2:32 (specimen) TILE PRESSER PM TILE PRESSER Luis Alberto Salinas MD LAB - BLOOD ORDERABLES Performing Organization Address City/State/ZIP Code Phon e Number [place] [address] [address] [place] [address] [facility] [address] [place] [address] [facility] [phone] Glucose by meter (09/29/2015 1:14 PM TILE PRESSER) P athologist Signature Glucose 98 70 - 99 POINT OF CARE mg/dL TEST, GLUCOSE Specimen Anatomical Collection Method Collection Time Receive d Time (Source) Location / / Volume Laterality 09/29/2015 1:14 PM 6 1:20 TILE PRESSER PM TILE PRESSER Luis Alberto Salinas MD LAB - BEAKER POCT Performing Organization Address City/State/ZIP Code Phon e Number [facility] POINT OF CARE TEST, GLUCOSE POINT OF CARE TEST, GLUCOSE EKG 12 lead (09/29/2015 12:59 PM TILE PRESSER) Patholo gist Method Time Signature Interpretation ECG Click View RADIOLOGY Image link RESULTS to view waveform and result Specimen (Source) Anatomical Collection Method Collection Time Re ceived Time Location / / Volume Laterality 09/29/2015 12:59 PM TILE PRESSER Luis Alberto Salinas MD ECG ORDERABLES Performing Organization Address City/[facility] Phon e Number RADIOLOGY RESULTS documented in this encounter Visit Diagnoses Diagnosis Hyperhydrosis disorder Primary focal hyperhidrosis documented in this encounter Active and Recently Administered Medications Care Teams Air Chipper Relationship Specialty Start Date End Date Mckenzie Mayorga MD PCP - General 08/10/15 10/09/15 [facility] [address] [place] [address] Zen Rousseau MD MD Family Practice 07/31/[address] [id number] documented as of this encounter
--- OUTSIDE RECORDS SUMMARY | 2022-04-05 08:02 | XMS_ITS | Encounter Summary ---
:1940 Author Organization [place] Address [address] [facility] [place] [address] Care Team Providers Name Role Phone Zen Rousseau MD Unavailable Luis Alberto Hernandez MD Primary Care Provider Reason for Visit Reason Comments Heart Problem Hx of hyperlipidemia, HTN, C AD, Inferior [place], aortic valve disease - Closed Specialty Diagnoses / Procedures Referred By Contact Refer red To Contact Diagnoses Coronary artery disease involving [place] coronary artery of [place] heart without angina pectoris Edna Jolley MD [address] [place] [address] Referral ID Status Reason Start Date Expiration Date Visits Requ ested Visits Authorized [id number] Closed 11/30/2015 11/29/2016 1 1 Encounter Details Date Type Department Care Team Description 12/08/2015 Office Visit Edna Aceves rtery disease involving [place] coronary artery of [place] heart without angina pectoris (Primary Dx); [facility] MD Ismael Mixed hyperlipidemia; Jose Rafael[place]ack[place] [address] Aortic valve disorder; [address] Past history of myocardial infarction [address] [place] [id number] Social History Tobacco Use Types Packs/Day [...] Sign Reading Time Taken Comments Blood Pressure 132/60 12/08/2015 1:55 PM right arm, la rge cuff CDT Pulse 68 12/08/2015 1:55 PM regular CDT Temperature - - Respiratory Rate - - Oxygen Saturation - - Inhaled Oxygen - - Concentration Weight 98.9 kg (218 lb) 12/08/2015 1:55 PM with boots o n CDT Height 167.6 cm (5' 6) 12/08/2015 1:55 PM CDT Body Mass Index 35.19 12/08/2015 1:55 PM CDT documented in this encounter Progress Notes Edna Jolley MD - 12/08/2015 2:59 PM CDT December 08, 2015 [place] [address] RE:Donaldo Bautista :[address] Hernandez: I again had the [facility], hyperlipidemia, morbid obesity and hypertension. This patient is a delightful 75-year-old accompanied by his today status post inferolateral wall myocardial infarction in 06/2010. Coronary angiography demonstrated high-grade stenosis of the second obtusemarginal branch artery which was then stented using a drug- eluting stent. He had shrx-ul-[id number] disease in his other vessels and ejection fraction of 50%-55%. Last nuclear stress test performed in 2011 demonstrated the inferolateral wall myocardial infarction and no other areas of ischemia. The patient is not exercising to any major extent other than occasionally mowing the lawn. He continues to eat excessive amounts of calories, fat and carbohydrates. He denies PND, orthopnea, peripheral edema, syncope or presyncope. We changed his niacin and statin to Crestor 20 mg daily when I saw him in October. We repeated his fasting lipid profile today including total cholesterol 166, HDL 55, LDL 81 and triglycerides 148. He is at all goals. His sodium was 141, potassium 4.2, BUN 18, creatinine 0.91 and glucose 111. The patient denies angina or significant shortness of breath. The patient quit smoking 35 years ago. PHYSICAL EXAMINATION: VITAL SIGNS: Current blood pressure is 132/60, pulse 68 and regular, weight 218 pounds, an increase of 4 pounds from October. CHEST: Clear to auscultation. CARDIAC: Regular rate and rhythm, normal S1 and S2 with an S4 gallop. There is no S3 gallop. He has a 2/6 systolic ejection murmur left lower sternal border to the right upper sternal border. No JVD. Pulses were all intact without bruits. ABDOMEN: Obese, soft, nontender without organomegaly. He has a healed cholecystectomy scar. EXTREMITIES: Without cyanosis, clubbing or edema. ASSESSMENT: 1. Donaldo Bautista is a delightful 75-year-old male with numerous cardiovascular risk factors. He quit smoking greater than 35 years ago. He has known coronary artery disease without recurrent angina. Stress testing in 2011 did not indicate any ongoing ischemia. We will consider repeating his nuclear stress test in 2017. 2. Hyperlipidemia. We changed pravastatin and niacin to Crestor 20 mg with excellent results. I haverefilled this prescription. This drug will be generic this year. 3. Hypertension, currently well controlled. 4. Evidence of aortic sclerosis. We will plan an echocardiogram sometime in the next year. I again discussed with this patient the reasons why weight loss, low-sodium diet and exercise are important. It is my pleasure to assist in the care of Donaldo Bautista. I will see him again in 1 year. We will perform a fasting lipid profile and ALT in 6 months. All his questions were answered to his satisfaction. His was in attendance. Sincerely, Edna Jolley MD, [facility] EDNA JOLLEY MD, FACC MT: PRISCILA Name: DONALDO BAUTISTA Account: [id number] : 1940 Service Date: 12/08/2015 Document: [id number] Edna Jolley MD - 12/08/2015 2:53 PM CDT HPI and Plan: See dictation:[id number] Orders Placed This Encounter Procedures ??? Lipid Profile ??? ALT ??? Follow-Up with Calculating Machine Mechanic Orders Placed This Encounter Medications ??? rosuvastatin (CRESTOR) 20 MG tablet Sig: Take 1 tablet (20 mg) by mouth daily Dispense: 90 tablet Refill: 3 Medications Discontinued During This Encounter Medication Reason ??? rosuvastatin (CRESTOR) 20 MG tablet Reorder Encounter Diagnoses Name Primary? Coronary artery disease involving [place] coronary artery of [place] heart without angina pectorisYes ??? Mixed hyperlipidemia ??? Aortic valve disorder ??? Past history of myocardial infarction CURRENT MEDICATIONS: Current Outpatient Prescriptions Medication Sig Dispense Refill ??? rosuvastatin (CRESTOR) 20 MG tablet Take 1 tablet (20 mg) by mouth daily 90 tablet 3 ??? losartan (COZAAR) 50 MG tablet Take 1 tablet (50 mg) by mouth daily 90 tablet 3 ??? MAGNESIUM PO ??? nitroglycerin (NITROSTAT) 0.4 [...] breath / dyspnea or wheezing ??? [DISCONTINUED] rosuvastatin (CRESTOR) 20 MG tablet Take 1 tablet (20 mg) by mouth daily 30 tablet 0 ALLERGIES Allergies Allergen Reactions ??? Fish Oil [...] History ??? Marital Status: Spouse Name: N/A ??? Number of Children: N/A ??? Years of Education: N/A Social History Main Topics ??? Smoking status: Former Smoker ??? Smokeless tobacco: Never Used Comment: quit about 30 years ago ??? Alcohol Use: No ??? Drug Use: No ??? Sexual Activity: Not on file Other Topics Concern ??? Caffeine Concern No 5-6 cups daily ??? Special Diet No ??? Exercise No mowing the lawn Social History Narrative Review of Systems: Skin: Negative Eyes: Positive for glasses ENT: Negative Respiratory: Positive for dyspnea on exertion;cough;wheezing night time uses inhailer to resolve Cardiovascular: chest pain;Positive for Gastroenterology: Positive for heartburn;reflux Genitourinary: Negative Musculoskeletal: Positive for back pain leg pain since starting Crestor Neurologic: Negative Psychiatric: Negative Heme/Lymph/Imm: Positive for easy bruising Endocrine: Negative Physical Exam: Vitals: BP 132/60 mmHg Pulse 68 Ht 1.676 m (5' 6) Wt 98.884 kg (218 lb) BMI 35.20 kg/m2 Constitutional: cooperative, alert and oriented, well [...] person and place;no gross motor deficits CC Edna Jolley MD [facility] [address] [place] [address] documented in this encounter Plan of Treatment Not on filedocumented as of this encounter Results ALT (06/05/2016 7:44 AM CDT) athologist Signature ALT 20 0 - 70 U/L [facility] Specimen Anatomical Collection Method Collection Time Receive d Time (Source) Location / / Volume Laterality Blood specimen 06/05/2016 7:44 AM 7:47 (specimen) CDT AM CDT Edna Jolley MD LAB - BLOOD ORDERABLES Performing Organization Address City/State/ZIP Code Phon e Number [place] [address] [address] [place] [address] [phone] Lipid Profile (06/05/2016 7:44 AM CDT) Analysis Performed At Patho logist Time Signature Cholesterol 159 <200 mg/dL [facility] Triglycerides 148 <150 mg/dL [facility] HDL Cholesterol 61 >39 mg/dL [facility] LDL Cholesterol 68 <100 mg/dL [facility] Comment: Desirable: <100 mg/dl Non HDL Cholesterol 98 <130 mg/dL [facility] Specimen Anatomical Collection Method Collection Time Receive d Time (Source) Location / / Volume Laterality Blood specimen 06/05/2016 7:44 AM 016 7:47 (specimen) CDT AM CDT Edna Jolley MD LAB - BLOOD ORDERABLES Performing Organization Address City/State/ZIP Code Phon e Number M [facility] [address] [place], [place] [address] [facility] [address] [place], [place] [address] [place] [address] documented in this encounter Visit Diagnoses Diagnosis Coronary artery disease involving [place] coronary artery of [place] heart without angina pectoris - Primary Mixed hyperlipidemia Aortic valve disorder Aortic valve disorders Past history of myocardial infarction Old myocardial infarction documented in this encounter Care Teams Reservoir Caretaker Relationship Specialty Start Date End Date Luis Alberto Hernandez MD PCP - General Family Practice 10/10/15 07/25/16 Zen Rousseau MD MD Family Practice 07/31/[address] [address] documented as of this encounter
--- OUTSIDE RECORDS SUMMARY | 2022-04-05 08:02 | XMS_ITS | Encounter Summary ---
:1940 Author Organization [place] Address [address] [facility] [place] [address] Care Team Providers Name Role Phone Zen Rousseau MD Unavailable Luis Alberto Hernandez MD Primary Care Provider Reason for Visit Reason Onset Date Comments Refill Request 11/02/2015 Losartan 90 day rx Encounter Details Date Type Department Care Team Description 11/02/2015 Refill [facility] SherrirAbhijit, Refill Request ([facility] [place] [facility] 90 day rx) [address] [facility] [address] [place] [address] [address] [place] [address] [place] [phone] [address] (Wo rk) Social History Tobacco Use [...] hypertension documented in this encounter Care Teams Mechanical Design Engineer Facilities Relationship Specialty Start Date End Date Luis Alberto Hernandez MD PCP - General Family Practice 10/10/15 07/25/16 Zen Rousseau MD MD Family Practice 07/31/[address] [place] [address] documented as of this encounter
--- OUTSIDE RECORDS SUMMARY | 2022-04-05 08:03 | XMS_ITS | Encounter Summary ---
:1940 Author Organization [place] Address [facility] [address] Care Team Providers Name Role Phone Unavailable Primary Care Provider Unavailable Encounter Details Date Type Department Care Team Description 06/27/2010 Historic Results INTERFACED REPORT Unknown, Provider Social History Tobacco Use Types Packs/Day Years Used Date Never Assessed Sex Assigned at Date Recorded Not on file documented as of this encounter Plan of Treatment Not on filedocumented as of this encounter Procedures Procedure Name Priority Date/Time Associated Comments Diagnosis TROPONIN I Timed 06/27/2010 8:47 PM Results f or this BOLT MACHINE OPERATOR procedure are i n the results section. HEPARIN 10A LEVEL Timed 06/27/2010 8:47 PM Resu lts for this BOLT MACHINE OPERATOR procedure are i n the results section. TROPONIN I Timed 06/27/2010 4:45 PM Results f or this BOLT MACHINE OPERATOR procedure are i n the results section. TROPONIN I Timed 06/27/2010 1:00 PM Results f or this BOLT MACHINE OPERATOR procedure are i n the results section. CBC WITH PLATELETS & STAT 06/27/2010 7:55 AM R esults for this DIFFERENTIAL BOLT MACHINE OPERATOR procedure are i n the results section. TROPONIN I STAT 06/27/2010 7:55 AM Results f or this BOLT MACHINE OPERATOR procedure are i n the results section. INR STAT 06/27/2010 7:55 AM Results f or this BOLT MACHINE OPERATOR procedure are i n the results section. PARTIAL THROMBOPLASTIN STAT 06/27/2010 7:55 AM Results for this TIME BOLT MACHINE OPERATOR procedure are i n the results section. D DIMER QUANTITATIVE STAT 06/27/2010 7:55 AM R esults for this BOLT MACHINE OPERATOR procedure are i n the results section. COMPREHENSIVE METABOLIC STAT 06/27/2010 7:55 AM Results for this PANEL BOLT MACHINE OPERATOR procedure are i n the results section. documented in this encounter Results (ABNORMAL) Troponin I (06/27/2010 8:47 PM BOLT MACHINE OPERATOR) Analysis Performed At [facility] Time Signature Troponin I ES 67.300 0.000 - [facility] (HH) 0.034 ug/L Comment: Critical Value called to and read back concha DEWEY(CCU)@2142 06.27.10 CTE Specimen Anatomical Collection Method Collection Time Receive d Time (Source) Location / / Volume Laterality 06/27/2010 8:47 PM 0 8:43 BOLT MACHINE OPERATOR PM BOLT MACHINE OPERATOR Naun Thompson MD LAB - BLOOD ORDERABLES Performing Organization Address City/State/ZIP Code Phon e Number [place] Heparin 10a Level (06/27/2010 8:47 PM BOLT MACHINE OPERATOR) athologist Signature Heparin 10A 0.33 IU/mL [facility] Level Comment: Therapeutic Range: ?? UFH: ?? 0.15-0.35 IU/mL for low ?intensity dosing ?0.30-0.70 IU/mL for high ?intensity dosing ?? LMWH: ??1.00-2.00 IU/mL if 4-6 h ?post daily dosing ?0.60-1.00 IU/mL if 4-6h ?post twice a day dosin g Specimen Anatomical Collection Method Collection Time Receive d Time (Source) Location / / Volume Laterality 06/27/2010 8:47 PM 0 8:30 BOLT MACHINE OPERATOR PM BOLT MACHINE OPERATOR Provider Unknown LAB - BLOOD ORDERABLES Performing Organization Address City/State/ZIP Code Phon e Number [place] (ABNORMAL) Troponin I (06/27/2010 4:45 PM BOLT MACHINE OPERATOR) Analysis Performed At [facility] Time Signature Troponin I ES 27.500 0.000 - [facility] (HH) 0.034 ug/L Comment: Critical Value called to and read back concha MURO IN ICU AT 1720T ON 06.27.10 BY RADHA IE Specimen Anatomical Collection Method Collection Time Receive d Time (Source) Location / / Volume Laterality 06/27/2010 4:45 PM 0 4:43 BOLT MACHINE OPERATOR PM BOLT MACHINE OPERATOR Naun Thompson MD LAB - BLOOD ORDERABLES Performing Organization Address City/State/ZIP Code Phon e Number [place] (ABNORMAL) Troponin I (06/27/2010 1:00 PM BOLT MACHINE OPERATOR) Analysis Performed At [facility] logist Time Signature Troponin I ES 21.200 0.000 - [facility] (HH) 0.034 ug/L Comment: Critical Value called to and read back concha CHANDRA ( 3RD ) 8426 06/27/10 Specimen Anatomical Collection Method Collection Time Receive d Time (Source) Location / / Volume Laterality 06/27/2010 1:00 PM 0 BOLT MACHINE OPERATOR 12:43 PM BOLT MACHINE OPERATOR Naun Thompson MD LAB - BLOOD ORDERABLES Performing Organization Address City/State/ZIP Code Phon e Number [place] (ABNORMAL) CBC with platelets differential (06/27/2010 7:55 AM BOLT MACHINE OPERATOR) [facility] gist Method Time Signature MCV 89 78 - 100 [facility] fl MCH 29.2 26.5 - [facility] 33.0 pg MCHC 32.7 31.5 - [facility] 36.5 g/dL RDW 13.3 10.0 - [facility] 15.0 % WBC 13.1 (H) 4.0 - [facility] 11.0 10e9/L RBC Count 5.30 4.4 - 5.9 [facility] 10e12/L Hemoglobin 15.5 13.3 - [facility] 17.7 g/dL Hematocrit 47.4 40.0 - [facility] 53.0 % % Neutrophils 68 40 - 75 % [facility] % Lymphocytes 27 20 - 48 % [facility] % Monocytes 5 0 - 12 % [facility] % Eosinophils 0 0 - 6 % [facility] % Basophils 0 0 - 2 % [facility] Platelet Count 228 150 - 450 [facility] 10e9/L Absolute 8.9 (H) 1.6 - 8.3 [facility] Neutrophil 10e9/L Absolute 3.5 0.8 - 5.3 [facility] Lymphocytes 10e9/L Absolute 0.6 0.0 - 1.3 [facility] Monocytes 10e9/L Absolute 0.0 0.0 - 0.7 [facility] Eosinophils 10e9/L Absolute 0.0 0.0 - 0.2 [facility] Basophils 10e9/L Diff Method Automated [facility] Method Specimen Anatomical Collection Method Collection Time Receive d Time (Source) Location / / Volume Laterality 06/27/2010 7:55 AM 0 8:12 BOLT MACHINE OPERATOR AM BOLT MACHINE OPERATOR Ta Mueller MD LAB - BLOOD ORDERABLES Performing Organization Address City/[facility]/ZIP Code Phon e Number [facility] INR (06/27/2010 7:55 AM BOLT MACHINE OPERATOR) athologist Signature INR 0.91 0.86 - 1.14 [facility] Specimen Anatomical Collection Method Collection Time Receive d Time (Source) Location / / Volume Laterality 06/27/2010 7:55 AM 0 8:12 BOLT MACHINE OPERATOR AM BOLT MACHINE OPERATOR Ta Mueller MD LAB - BLOOD ORDERABLES Performing Organization Address [facility] Phon e Number [facility] Partial thromboplastin time (06/27/2010 7:55 AM BOLT MACHINE OPERATOR) athologist Signature PTT 30 22 - 37 sec [facility] Specimen Anatomical Collection Method Collection Time Receive d Time (Source) Location / / Volume Laterality 06/27/2010 7:55 AM 0 8:12 BOLT MACHINE OPERATOR AM BOLT MACHINE OPERATOR Ta Mueller MD LAB - BLOOD ORDERABLES Performing Organization Address [facility] Phon e Number [facility] D dimer quantitative (06/27/2010 7:55 AM BOLT MACHINE OPERATOR) athologist Signature D Dimer 0.3 0.0 - 0.50 [facility] ug/ml FEU Specimen Anatomical Collection Method Collection Time Receive d Time (Source) Location / / Volume Laterality 06/27/2010 7:55 AM 0 8:12 BOLT MACHINE OPERATOR AM BOLT MACHINE OPERATOR Ta Mueller MD LAB - BLOOD ORDERABLES Performing Organization Address City/[facility]/ZIP Code Phon e Number [facility] (ABNORMAL) Comprehensive metabolic panel (06/27/2010 7:55 AM BOLT MACHINE OPERATOR) P athologist Signature Sodium 139 133 - 144 [facility] mmol/L Potassium 4.0 3.4 - 5.3 [facility] mmol/L Chloride 102 94 - 109 [facility] mmol/L Carbon Dioxide 28 20 - 32 [facility] mmol/L Glucose 148 (H) 60 - 99 [facility] mg/dL Urea Nitrogen 16 7 - 30 [facility] mg/dL Creatinine 0.75 0.66 - [facility] 1.25 mg/dL Comment: New IDMS-traceable calibration beginning 12/04/07 GFR Estimate >90 >60 mL/min/1.7m2 [facility] GFR Estimate If Black >90 >60 mL/min/1.7m2 [facility] Calcium 9.9 8.5 - 10.4 mg/dL [facility] AST 37 0 - 55 U/L [facility] Protein Total 8.4 6.8 - 8.8 g/dL [facility] Anion Gap 10 6 - 17 mmol/L [facility] Albumin 4.7 3.3 - 4.9 g/dL [facility] ALT 36 0 - 70 U/L [facility] Alkaline Phosphatase 80 40 - 150 U/L [facility] Bilirubin Total 1.1 0.2 - 1.3 mg/dL [facility] Specimen Anatomical Collection Method Collection Time Receive d Time (Source) Location / / Volume Laterality 06/27/2010 7:55 AM 0 8:12 BOLT MACHINE OPERATOR AM BOLT MACHINE OPERATOR Ta Mueller MD LAB - BLOOD ORDERABLES Performing Organization Address City/State/ZIP Code Phon e Number [facility] Troponin I (06/27/2010 7:55 AM BOLT MACHINE OPERATOR) P athologist Signature Troponin I ES <0.012 0.000 - [facility] 0.034 ug/L Specimen Anatomical Collection Method Collection Time Receive d Time (Source) Location / / Volume Laterality 06/27/2010 7:55 AM 0 8:12 BOLT MACHINE OPERATOR AM BOLT MACHINE OPERATOR Ta Mueller MD LAB - BLOOD ORDERABLES Performing Organization Address City/State/ZIP Code Phon e Number [facility] documented in this encounter Visit Diagnoses Not on filedocumented in this encounter
--- OUTSIDE RECORDS SUMMARY | 2022-04-05 08:03 | XMS_ITS | Encounter Summary ---
:1940 Author Organization [place] Address [address] [facility] [place] [address] Care Team Providers Name Role Phone Unavailable Primary Care Provider Unavailable Encounter Details Date Type Department Care Team Description 06/27/2010 Emergency room [facility] Results EMERGENCY PHYSI DEUCE SOFIA [address] [place], [place] [address] Social History Tobacco Use Types Packs/Day Years Used Date Never Assessed Sex Assigned at Date Recorded Not on file documented as of this encounter Progress Notes Interface, Senior Specialist - 06/28/2010 10:59 AM FRONT DESK SPECIALIST FINAL Chief Complaint - History of Present Illness - MD Time:: 07:54 - Chief Complaint: Chest pain - HPI: Donaldo Bautista is a 70 y. o. male who presents at 0754 to the ED for evaluation of chest pain. 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 He notes when he returned home he took 2 baby aspirin without relief. The patient describes the pain as a non-radiating sharp, burning sensation with a 7-8/10 in severity which gets worse with ambulation but not inspiration . The patient explains he's been feeling short of breath recently, but is vague on the exact duration. He denies feeling, dizzy, lightheaded, nausea, or diaphoresis as well as any leg pain or swelling. Cardiac Risk Factors: The patient has no history of hypertension or diabetes and quit smoking 25 years ago. He reports a family history of 5 brothers and 1 sister with history of HI Medications - Medications: Pravachol Baby Aspirin Allergies PCN; Itching Past Medical/Family History - [facility] is positive for: Colon resectioning polyp - -: 5 brothers and 1 sister with history of HI. Social History - Is negative for Tobacco use, Illicit drug use, Alcohol use, quit smoking 25 years ago Review of Systems - - All other systems negative except - Cardiovascular Positive for chest pain, Negative for leg swelling - Respiratory Positive for shortness of breath - Gastrointestinal Negative for nausea, Negative for vomiting - Musculoskeletal Positive for joint pain - Neurological Negative for dizziness Vital Signs-Triage Temp F: 98.2 degrees F Temp C: 36.7 degrees C Temp site: Oral Heart Rate: 93 bpm Resp Rate: 16 Pulse Oximetry: 100 Oxygen Delivery: Room air Cuff Systolic BP mmH Cuff Diastolic BP mmH Physical Exam - Constitutional Well developed, nourished, no distress present - HENT atraumatic, oropharynx clear and moist - Eyes conjunctiva normal, extraocular movements normal, no scleral icterus present - Neck range of motion normal, supple, no meningismus present, no tracheal deviation present, no stridor present, no cervical adenopathy present - Cardiovascular normal rate, regular rhythm, no murmur present, no rub present, no gallop present - Pul/Chest Wall effort normal, breath sounds normal, no respiratory distress present, no wheezes present, no rales present, no chest tenderness present - Abdominal soft, no distention present, no tenderness present, no rebound present, no guarding present, no mass present, obese - Musculoskeletal normal range of motion, no deformity present, no edema present, no tenderness present - Neurologic alert, oriented x3, Amy Coma Score is 15, no cranial nerve deficit present, normal coordination, normal sensory, 5/5 strength all extremities - Skin warm, dry, non-diaphoretic, no erythema present, no rash present, no petechiae - Heme/Lymph no lymphadenopathy Laboratory information - -: CBC: WBC 13.1 high, o/w WNL (HGB 15.5, PLT 228) CMP: Glucose 148 high, o/w WNL (Creatinine 0.75) D-Dimer: 0.3 INR: 0.91 PTT: 30 Troponin: <0.012 Diagnostic information - -: ECG: Rate 81 bpm. ID interval 162. QRS duration 90. QT/QTc 356/413. P-R-T axes 58 11 50. Sinus rhythm with marked sinus arrhythmia. Otherwise normal ECG. Possible u-wave. Imaging: CXR: No acute disease. ED Course: Interventions/Consultations/Procedures - -: Interventions: Nitroglycerin 0.4 mg SL x 3 Morphine 4 mg IV Toradol 30 mg IV NS 500 ml IV ED Course: IV inserted and blood drawn. The patient was placed on continuous cardiac monitoring and pulse oximetry. The patient was sent for a CXR while in the emergency department, findings above. Rechecked the patient, findings and plan explained to the patient, who consents to admission. Discussed the patient with Dr. Thompson, who will admit the patient to a telemetry bed for further observation, evaluation, and treatment. Medical Decision Making - -: Patient is a 70 year old male with a past medical history of high cholesterol as well as strong family history of coronary artery disease who is presenting today with complaint of chest pain. Over the last couple of months he's been having significantly worse with exertion as has his shortness of breath. I'm concerned for angina. Initial EKG and troponin are negative. Given this appears to be unstable angina I do not feel he is appropriate for CPEU and will require inpatient observation rather than down here in the CPEU. Patient also gave himself Aspirin prior to arrival. D-Dimer was normal therefore not likely to be PE or dissection and he is not having typical pain complaints such as that. No evidence of pneumothorax on chest x-ray. Diagnosis - -: 1. Chest pain. Disposition Plan - -: Admission to telemetry. Scribe Disclosure I, Hernando Montero, am serving as a scribe to document services personally performed by Dr. Mueller, based on my observations and the provider's statements to me. Electronically signed on 06/28/2010 10:58 by ANKITA MUELLER MD As dictated by TREY MONTERO MT: GT Name: DONALDO BAUTISTA Account: [id number] : 1940 Visit Date: 06/27/2010 Document: [id number] T DESK SPECIALIST documented in this encounter Plan of Treatment Not on filedocumented as of this encounter Visit Diagnoses Not on filedocumented in this encounter
--- OUTSIDE RECORDS SUMMARY | 2022-04-05 08:03 | XMS_ITS | Encounter Summary ---
:1940 Author Organization [place] Address [address] [facility] [place] [address] Care Team Providers Name Role Phone Unavailable Primary Care Provider Unavailable Encounter Details Date Type Department Care Team Description 11/03/2010 Results Only [facility] Luis Alberto Dunbar MD [facility] Results [address] [place], [place] [address] (Wo rk) Social History Tobacco Use Types Packs/Day Years Used Date Never Assessed Sex Assigned at Date Recorded Not on file documented as of this encounter Plan of Treatment Not on filedocumented as of this encounter Procedures Procedure Name Priority Date/Time Associated Diagnosis Comme nts NM MPI TREADMILL Routine 11/03/2010 12:45 PM Resu lts for this CDT procedure are i n the results section. ZZ STRESS THALLIUM Routine 11/03/2010 11:45 AM Re sults for this TEST CDT procedure are i n the results section. documented in this encounter Results NM Mpi multi rest stress (11/03/2010 12:45 PM CDT) Specimen (Source) Anatomical Collection Method Collection Time Re ceived Time Location / / Volume Laterality 11/03/2010 12:45 PM CDT Impressions RADIOLOGY RESULTS - 12/06/2010 4:39 PM C DT DONALDO Obinna MCCANN ?? PROCEDURE PERFORMED: ??Nuclear stress te st. ?? INDICATION FOR STUDY: ??Coronary artery disease. ?? TEST SUMMARY: ??The patient exercised ac cording to a modified Master protocol for 7 minutes 0 seconds achievi ng a work level maximum of 4 METS. ??The resting heart rate 114 beats per minute kvng to a maximal of 162 beats per minute. ??This value re presents 109% of maximal age-predicted heart rate. ??Resting bloo d pressure 140/84 kvng to a maximal of 180/86, rate pressure product 27,900. ??Test was stopped due to fatigue. ??The patient experience d no chest pain during this test. ? Baseline electrocardiogram reveals a sin us tachycardia at a rate of 114 beats per minute, normal axis is not ed, very slight sagging of the ST segments is seen in the inferior and lateral leads, less than 0.5 mm. ??There is 1 premature atrial co ntraction at baseline. ??During exercise, rare PVC is noted. ??At peak e xercise, there is no change in ST segments. ?? TEST CONCLUSION: ??Negative stress ECG f or evidence of ischemia. ?? Adequate cardiac workload. ?? Average fu nctional aerobic capacity. ?? The nuclear portion of the study will be reported separately. ?? cc: ??Zen Rousseau MD Luis Alberto Dunbar MD IMG NM ORDERABLES Performing Organization Address City/State/ZIP Code Phon e Number RADIOLOGY RESULTS Stress thallium test (11/03/2010 11:45 AM CDT) BA Systems Method Time Signature [facility] RADIOLOGY RESULT DONALDO MCCANN RESULTS GATED EXERCISE MYOCARDIAL PERFUSION SCINTIGRAPHY Done on 11/06/2010. ??Mr. Mccann is a 70-year-old male. ??: 1940. INDICATION: ??Assessment of myocardial perfusion in a patien t with a history of coronary artery disease. ??Indication for exercis e testing was coronary artery disease. IMPRESSIONS: I. ??Exercise Test ?? 1. ??The patient exercised to an adequate cardiac workload w ith diminished functional aerobic capacity demonstrated. 2. ??The patient experienced no chest pain during the test. 3. ??ECG report done under separate cover. II. ??Myocardial Perfusion Scintigraphy 1. ??Myocardial perfusion using single isotope technique de monstrated a small to moderately sized fixed mid and basal inferior and inferolateral wall defect that is consistent with the presen ce of nontransmural myocardial infarction. There is no evidence of residual ischemia. 2. ??Gating demonstrated normal wall motion. 3. ??The ejection fraction was calculated at 63%. RESTING TOMOGRAPHY: ??Following the injection of 10.9mCi of technetium 99m sestamibi intravenously, gamma camera imaging was performed using 180* SPECT technique. EXERCISE TEST RESULTS: ??The patient exercised for 7 minute s according to the modified Master protocol. ??The peak heart r ate achieved was 155 which is 104% of the age-predicted maximum heart rate, 4 METS. ??Blood pressure at peak exercise was 170/82 g iving a rate pressure product of 27,900. ??The test was terminated s econdary to fatigue. ECG report done under separate cover. Approximately 90 seconds prior to the termination of exercis e, the patient was injected with 31.2mCi of technetium 99m sestamib i intravenously. ?? Gamma camera imaging was performed later u sing 180* SPECT technique. TOMOGRAPHIC RESULTS: ??This is a technically adequate study. ??On the stress images, a small to moderately sized inferior and infe rolateral wall defect is seen. ??There is a moderate reduction in radi otracer uptake. ??On the rest images, no major changes were seen to this defect. ??Gated images demonstrated normal wall motion. ??Th e ejection fraction was 63%. cc: Luis Alberto Dunbar MD Specimen (Source) Anatomical Collection Method Collection Time Re ceived Time Location / / Volume Laterality 11/03/2010 11:45 AM CDT Luis Alberto Dunbar MD [facility] ORDERABL ES Performing Organization Address City/State/ZIP Code Phon e Number RADIOLOGY RESULTS documented in this encounter Visit Diagnoses Not on filedocumented in this encounter
--- OUTSIDE RECORDS SUMMARY | 2022-04-05 08:03 | XMS_ITS | Encounter Summary ---
:1940 Author Organization [place] Address [address] [facility] [place] [address] Care Team Providers Name Role Phone Unavailable Primary Care Provider Unavailable Encounter Details Date Type Department Care Team Description 06/29/2010 Historic Notes INTERFACED REPORT Mango Montesinos, DO [address] [place], [place] [address] (Wo rk) Social History Tobacco Use Types Packs/Day Years Used Date Never Assessed Sex Assigned at Date Recorded Not on file documented as of this encounter Progress Notes Mango Montesinos - 10/20/2010 3:05 PM CDT Mr. Bautista feels well this AM. Denies chest pain, sob, other new complaints. He is anxious to go home soon. Last 24 hours Vitals signs,imaging,microbiology;laboratory results were reviewed by me in [facility] GEN: AO x 3, appears comfortable, NAD. HEENT: NC/AT, no scleral icterus, mouth moist CV: RRR, no murmur LUNGS: CTA bilaterally without rales/rhonchi/wheezing/retractions ABD: Active bowel sounds, soft, non-tender/non-distended. Right groin cath site without visible bleeding or increased swelling. EXT: Trace LE edema, no cyanosis, skin dry to touch. RLE distal pulses intact. Labs/Studies: Reviewed Creat 0.79, Hgb 13.7 Impression: 1. 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 HTN 3. Hyperlipidemia Plan: 1. Cardiology is planning d/c home. See their d/c summary for full details. 2. Patients questions answered. I emphasized him to not stop his plavix unless okd by cardiology given the recent stent. [Signature] Author: Mango Montesinos (DO) [Signed 14:16] documented in this encounter Plan of Treatment Not on filedocumented as of this encounter Visit Diagnoses Not on filedocumented in this encounter
--- OUTSIDE RECORDS SUMMARY | 2022-04-05 08:03 | XMS_ITS | Encounter Summary ---
:1940 Author Organization [place] Address [address] [facility] [place] [address] Care Team Providers Name Role Phone Unavailable Primary Care Provider Unavailable Encounter Details Date Type Department Care Team Description 06/29/2010 Historic Notes INTERFACED REPORT Interface, Transcript MD fabien Social History Tobacco Use Types Packs/Day Years Used Date Never Assessed Sex Assigned at Date Recorded Not on file documented as of this encounter Progress Notes Interface, Astronomy Instructor - 10/20/2010 3:05 PM CDT General Information - Pertinent Medical N/A History: - Activity/Exercise None Habits: - Patient is receptive Yes for discussion at this time: Risk Factors for Heart Disease - The patient has the High blood pressure, Lack of physical activity, following risk Cholesterol problems, Overweight, Family factors for heart history, Gender, Age disease Behavior Change - The patient was Action I am evaluated and determined to be at the following stage of change (smoking cessation) - The patient was Preparation I will in the next 30 day evaluated and determined to be at the following stage of change (physical activity) - The following Increase awareness of effects of behavior on interventions were health, Increase awareness of how behavior used (physical affects others, Problem-solve barriers, Develop activity) action plan, Identify healthy alternatives, Recognize rewards of value to him/her - Motivation scale for 9 physical activity (1-10) - Confidence scale for 9 physical activity (1-10) - The patient was Preparation I will in the next 30 day evaluated and determined to be at the following stage of change (aerobic exercise) - The following Increase awareness of effects of behavior on interventions were health, Increase awareness of how behavior used (aerobic affects others, Accept responsibility for exercise) effects of behavior, Problem-solve barriers, Develop action plan, Identify healthy alternatives - Motivation scale for 7 aerobic exercise (1-10) - Confidence scale for 7 aerobic exercise (1-10) - The patient was Contemplation I might in the next 60 days evaluated and determined to be at the following stage of change (low fat eating) - The following Increase awareness of effects of behavior on interventions were health, Increase awareness of how behavior used (low fat eating) affects others, Identify support system, Recognize rewards of value to him/her - Motivation scale for 5 low fat eating (1-10) - Confidence scale for 5 low fat eating (1-10) - The patient was Contemplation I might in the next 60 days evaluated and determined to be at the following stage of change (weight loss) - The following Increase awareness of effects of behavior on interventions were health, Increase awareness of how behavior used (weight loss) affects others, Develop action plan, Identify healthy alternatives, Identify support system - Motivation scale for 5 weight loss (1-10) - Confidence scale for 5 weight loss (1-10) Impression - Hemodynamic response please see the Interventions (Cardiovascular) and symptoms during section of the Adult Assessment and Intervention activity/exercise: flowsheet - Education provided: please see the Adult Education/Outcome Record on the flowsheet tab. - Assessment: Patient demonstrates reduced activity tolerance due to recent [place] and stent placement, symptoms of fatigue and dyspnea with low level exertion and orthostatic hypotension. Patient will be seen for progressive exercise program for improved actiity tolerance to normal daily levels with stable cardiac response. Discussed outpatient cardiac rehab and importance of increasing his home ac tivity. - Recommendations for Gradual walking program, Gradual increase in exercise and activity physical activity at home: - Patient family Yes verbalizes understanding of appropriate exercise/activity guidelines and precautions: - Patient family Yes verbalizes understanding of the basic principles of continuing a cardiovascular conditioning program.: - Discharge Outpatient cardiac rehabilitation recommendations: Nury Nogueira (MS)[Signed 11:45] Authored: General Information, Risk Factors for Heart Disease, Behavior Change, Impression Interface, Astronomy Instructor - 10/20/2010 3:05 PM CDT Progress Note - :: Discharged per MD order. No complaints of pain. Ambulated. Post angiogram site care and precautions reviewed with patient. Meds reviewed. See D/c instructions. Signatures Bladimir Gallardo (YEN)[Signed 14:42] Authored: Progress Note documented in this encounter Plan of Treatment Not on filedocumented as of this encounter Visit Diagnoses Not on filedocumented in this encounter
--- OUTSIDE RECORDS SUMMARY | 2022-04-05 08:03 | XMS_ITS | Encounter Summary ---
:1940 Author Organization [place] Address [address] [facility] [place] [address] Care Team Providers Name Role Phone Unavailable Primary Care Provider Unavailable Encounter Details Date Type Department Care Team Description 06/29/2010 Historic Results [facility] [place] [address] [place] [address] [address] [place], [place] [address] (Wo rk) Social History Tobacco Use Types Packs/Day Years Used Date Never Assessed Sex Assigned at Date Recorded Not on file documented as of this encounter Plan of Treatment Not on filedocumented as of this encounter Procedures Procedure Name Priority Date/Time Associated Comments Diagnosis UREA NITROGEN (BUN) Routine 06/29/2010 7:40 AM Re sults for this CANDY DIPPER procedure are i n the results section. POTASSIUM Routine 06/29/2010 7:40 AM Results f or this CANDY DIPPER procedure are i n the results section. PLATELET COUNT Routine 06/29/2010 7:40 AM Results for this CANDY DIPPER procedure are i n the results section. HEMOGLOBIN Routine 06/29/2010 7:40 AM Results f or this CANDY DIPPER procedure are i n the results section. CREATININE Routine 06/29/2010 7:40 AM Results f or this CANDY DIPPER procedure are i n the results section. HEPARIN 10A LEVEL Routine 06/29/2010 7:40 AM Resu lts for this CANDY DIPPER procedure are i n the results section. documented in this encounter Results Platelet count (06/29/2010 7:40 AM CANDY DIPPER) athologist Signature Platelet Count 195 150 - 450 MISYS 10e9/L Specimen (Source) Anatomical Collection Method Collection Time Re ceived Time Location / / Volume Laterality 06/29/2010 7:40 AM 0 CANDY DIPPER Luis Alberto Dunbar MD LAB - BLOOD ORDERABLES Performing Organization Address [facility] Phon e Number MISYS Heparin 10a Level (06/29/2010 7:40 AM CANDY DIPPER) P athologist Signature Heparin 10A <0.10 IU/mL MISYS Level Comment: Therapeutic Range: ?? UFH: ?? 0.15-0.35 IU/mL for low ?intensity dosing ?0.30-0.70 IU/mL for high ?intensity dosing ?? LMWH: ??1.00-2.00 IU/mL if 4-6 h ?post daily dosing ?0.60-1.00 IU/mLif 4-6 h ?post twice a day dosin g Specimen (Source) Anatomical Collection Method Collection Time Re ceived Time Location / / Volume Laterality 06/29/2010 7:40 AM 0 CANDY DIPPER Naun Thompson MD LAB - BLOOD ORDERABLES Performing Organization Address [facility] Code Phon e Number MISYS Hemoglobin (06/29/2010 7:40 AM CANDY DIPPER) P athologist Signature Hemoglobin 13.7 13.3 - 17.7 MISYS g/dL Specimen (Source) Anatomical Collection Method Collection Time Re ceived Time Location / / Volume Laterality 06/29/2010 7:40 AM 0 CANDY DIP[facility] Luis Alberto Dunbar MD LAB - BLOOD ORDERABLES Performing Organization Address [facility] Code Phon e Number MISYS Potassium (06/29/2010 7:40 AM CANDY DIPPER) P athologist Signature Potassium 4.6 3.4 - 5.3 MISYS mmol/L Specimen (Source) Anatomical Collection Method Collection Time Re ceived Time Location / / Volume Laterality 06/29/2010 7:40 AM 0 C[facility]Y DIP[facility] Luis Alberto Dunbar MD LAB - BLOOD ORDERABLES Performing Organization Address City/State/ZIP Code Phon e Number MISYS Urea nitrogen (06/29/2010 7:40 AM CANDY DIPPER) athologist Signature Urea Nitrogen 22 7 - 30 MISYS mg/dL Specimen (Source) Anatomical Collection Method Collection Time Re ceived Time Location / / Volume Laterality 06/29/2010 7:40 AM 0 CANDY DIPPER Luis Alberto Dunbar MD LAB - BLOOD ORDERABLES Performing Organization Address City/[facility] Phon e Number MISYS Creatinine (06/29/2010 7:40 AM CANDY DIPPER) athologist Signature Creatinine 0.79 0.66 - 1.25 MISYS mg/dL Comment: New IDMS-traceable calibration beginning 12/04/07 GFR Estimate >90 >60 mL/min/1.7m2 MISYS GFR Estimate If Black >90 >60 mL/min/1.7m2 M ISYS Specimen (Source) Anatomical Collection Method Collection Time Re ceived Time Location / / Volume Laterality 06/29/2010 7:40 AM 0 C[facility]IP[facility] Luis Alberto Dunbar MD LAB - BLOOD ORDERABLES Performing Organization Address City/State/ZIP Code Phon e Number MISYS documented in this encounter Visit Diagnoses Not on filedocumented in this encounter
--- OUTSIDE RECORDS SUMMARY | 2022-04-05 08:03 | XMS_ITS | Encounter Summary ---
:1940 Author Organization [place] Address [address] [place] [address] Care Team Providers Name Role Phone Zen Rousseau MD Unavailable Zen Rousseau MD Primary Care Provider Mckenzie Mayorga MD Primary Care Provider Luis Alberto Hernandez MD Primary Care Provider Encounter Details Date Type Department Care Team Description 08/01/2012 Historic Results [facility], [address] [place] [id number] Social History Tobacco Use Types Packs/Day Years Used Date Never Assessed Sex Assigned at Date Recorded Not on file documented as of this encounter Plan of Treatment Not on filedocumented as of this encounter Procedures Procedure Name Priority Date/Time Associated Diagnosis Comme nts NUCLEAR CARDIAC - HIM 08/01/2012 12:00 AM INSEMINATOR SCAN - ARCHIVE documented in this encounter Results NUCLEAR CARDIAC - HIM SCAN - ARCHIVE (08/01/2012 12:00 AM INSEMINATOR) Specimen (Source) Anatomical Location Collection Method / Collectio n Time Received Time / Laterality Volume 08/01/2012 Narrative This result has an attachment that is no t available. Provider Scan IMG NM ORDERABLES documented in this encounter Visit Diagnoses Not on filedocumented in this encounter Care Teams Printed Circuit Board Panels Developer Relationship Specialty Start Date End Date Zen Rousseau MD PCP - General Family Practice 08/01/12 08/09/[address] [place] [address] Mckenzie Mayorga MD PCP - General 08/10/15 10/09/[address] [address] Luis Alberto Hernandez MD PCP - General Family Practice 10/10/15 07/25/16 Zen Rousseau MD MD Family Practice 07/31/[address] [address] documented as of this encounter
--- OUTSIDE RECORDS SUMMARY | 2022-04-05 08:03 | XMS_ITS | Encounter Summary ---
:1940 Author Organization [place] Address [address] [facility] [place] [address] Care Team Providers Name Role Phone Zen Rousseau MD Unavailable Zen Rousseau MD Primary Care Provider Encounter Details Date Type Department Care Team Description 08/01/2012 Results Only [facility] Ip, Fatoumata an Chon Castro MD Hospital Results [address] [place], [place] [address] (Wo rk) Social History Tobacco Use Types Packs/Day Years Used Date Never Assessed Sex Assigned at Date Recorded Not on file documented as of this encounter Plan of Treatment Not on filedocumented as of this encounter Procedures Procedure Name Priority Date/Time Associated Diagnosis Comme nts ZZ STRESS THALLIUM 08/01/2012 2:45 PM Res ults for this TEST BEHAVIORAL PEDIATRICIAN procedure are i n the results section. documented in this encounter Results Stress thallium test (08/01/2012 2:45 PM BEHAVIORAL PEDIATRICIAN) Specimen (Source) Anatomical Collection Method Collection Time Re ceived Time Location / / Volume Laterality 08/01/2012 2:45 PM BEHAVIORAL PEDIATRICIAN Narrative RADIOLOGY RESULTS - 08/09/2012 9:19 PM Maira NEWELL DONALDO BAUTISTA ?? EXERCISE ECG PORTION OF AN EXERCISE SEST AMIBI ? INDICATION FOR STUDY: ??Chest pain. ??In itial heart rate 73 beats per minute with blood pressure 108/72. ??The patient went 9 minutes and 24 seconds on a Master protocol. ??Initial b lood pressure 108/72. ??Peak blood pressure 158/68. ??The patient had no chest discomfort with exertion. ??Achieved peak heart rate 126 beats per minute, which represents 86% of the age-predicted hear t rate and 7.2 METS. ??Double product of 19,908. ??Nuclear tracer inje cted per protocol. ??Initial ECG with sinus rhythm with PACs. ??No is chemic ST or T-wave abnormalities at rest. ??With exercise 0 .[address] depression in II, III, aVF and V4 through V6 that d id not meet criteria for ischemia. ??PVC couplets and PA-C were s een in recovery. ??Nuclear portion of stress test to be reported se ashwin. ?? Dr. Zen Rousseau Procedure Note Jimenez Vincent MD - 08/09/2012Form atting of this note might be different from the original. DONALDO BAUTISTA EXERCISE ECG PORTION OF AN EXERCISE [facility] INDICATION FOR STUDY: Chest pain. Initia l heart rate 73 beats per minute with blood pressure 108/72. The p atient went 9 minutes and 24 seconds on a Master protocol. Initial blo od pressure 108/72. Peak blood pressure 158/68. The patient had n o chest discomfort with exertion. Achieved peak heart rate 126 b eats per minute, which represents 86% of the age-predicted hear t rate and 7.2 METS. Double product of 19,908. Nuclear tracer inject ed per protocol. Initial ECG with sinus rhythm with PACs. No isch emic ST or T-wave abnormalities at rest. With exercise 0.[address] depression in II, III, aVF and V4 through V6 that d id not meet criteria for ischemia. PVC couplets and PA-C were see n in recovery. Nuclear portion of stress test to be reported se christopher. Dr. Zen Rousseau Craig Godfrey MD CV CARDIAC SERVICES ORDERABL ES Performing Organization Address City/State/ZIP Code Phon e Number RADIOLOGY RESULTS documented in this encounter Visit Diagnoses Not on filedocumented in this encounter Care Teams Portal Developer Relationship Specialty Start Date End Date Zen Rousseau MD PCP - General Family Practice 08/01/12 08/09/[address] [address] Zen Rousseau MD MD Family Practice 07/31/[address] [address] documented as of this encounter
--- OUTSIDE RECORDS SUMMARY | 2022-04-05 08:03 | XMS_ITS | Encounter Summary ---
:1940 Author Organization [place] Address [address] [facility] [place] [address] Care Team Providers Name Role Phone Unavailable Primary Care Provider Unavailable Encounter Details Date Type Department Care Team Description 06/29/2010 Discharge Summary [facility] Anna Ruff, (Domestic Housekeeper) [facility] Results [address] [facility] [address] [place] [address] Social History Tobacco Use Types Packs/Day Years Used Date Never Assessed Sex Assigned at Date Recorded Not on file documented as of this encounter Progress Notes Anna Ruff - 07/03/2010 9:03 AM DELIVERY SPECIALIST FINAL CHIEF COMPLAINT: Subendocardial inferolateral myocardial infarction due to high grade stenosis of the left circumflex coronary artery which was urgently angioplastied and stented. Mr. Donaldo Mccann came in to the hospital with a prolonged episode of mid and left sternal chest discomfort that he had never had before. It came out of the blue and lasted for about half hour to an hour. When he was in the Emergency Department, the pain returned and went up to a 7/10. He was given nitroglycerin x2 and that gave some relief. His EKGs were nondiagnostic, but his troponin became positive, confirming a clinical impression of unstable angina. He was taken to the cardiac catheterization lab by my associate, Dr. Piero Dunbar who did coronary angiography. This revealed 3-vessel coronary disease of a mild to moderate degree and a high-grade stenosis of an obtuse marginal branch to the inferolateral wall of the left ventricle. The gentleman's peak troponin was 27, but had no major EKG changes and his LV function by left ventriculography was well preserved with no major wall motion abnormalities. His left ventricular end-diastolic pressure was a bit high. He had stenting of the left circumflex, receiving a 2.5 mm x 12 mm Promus drug-eluting stent. Accordingly, he will need to take Plavix for 1 year without fail. His LAD and right coronary arteries had mild to moderate stenoses. No other lesions were flow-limiting and did not require any acute intervention at this time. His lipid profile was decent while being on pravastatin now for a long time and it was not NCP guidelines for secondaryprevention with a total cholesterol of 178, triglycerides 101, LDL 97, HDL low. He had been on pravastatin because he had sore muscles with Lipitor. I switched him to simvastatin in the hopes that he might be able to get his LDL below 70 without the muscular soreness. Dr. Rousseau and will be following up with this on an outpatient basis. 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 The degree of his injury I think is mild. I told him he should take the holiday off and that he couldreturn to work on the following Saturday after he sees Dr. Rousseau on 07/03/2010. He should follow up with cut with Cardiology in 2-3 months. He needs a lipid profile, assuming his muscles do not bother him on the simvastatin in 2-3 months, shooting for an LDL below 70. Remotely he was a smoker but he stopped 25 years ago and that was not an issue. LABORATORY DATA: Platelets 195,000, potassium 4.6, creatinine 0.8, troponins peaked at 27. EKG showed no significant ST-T changes. Lipid profile is as noted above, hemoglobin 15.5 grams, white count 13,000. Chest x-ray done in the emergency room was normal with a normal heart and normal lungs. IMPRESSION: 1. Small inferolateral myocardial infarction due to high grade stenosis of an obtuse marginal that was stented using a 2.5 mm drug-eluting stent. 2. No signs of heart failure or subsequent angina. 3. Three-vessel coronary artery disease as noted in the cardiac catheterization. 4. Well preserved LV function. 5. Hypertension. 6. Obesity. 7. Partially treated hyperlipidemia. 8. No current signs of diabetes. MEDICATIONS ON DISCHARGE: 1. Aspirin 81 mg a day. 2. Plavix 75 mg a day for a year 3. Metoprolol 100 mg b.i.d. 4. Lisinopril 20 mg b.i.d. 5. Simvastatin 80 mg at bedtime. 6. Protonix 40 mg a day. These medicines may be manipulated by Dr. Rousseau per his judgment. While he was in the hospital,his blood pressure were tending to run high in the 150/100 range. As he became more active they became even higher. Goals then would be diet, weight loss, exercise, cholesterol management hypertensive management. He should probably have a stress study in 2-3 months in view of his multiple vessel coronary disease as a baseline to follow subsequently. I think if he is asymptomatic when he sees Dr. Rousseau, he can return to work following Saturday unless Dr. Rousseau has concerns otherwise. Prognosis is good. Electronically signed on 07/03/2010 09:02 by ANNA RUFF MD, [facility] MT: [id number] Name: DONALDO MCCANN Account: [id number] : 1940 Admit Date: Discharge Date: 06/29/2010 Document: [id number] cc: Zen Rousseau MD VERY SPECIALIST documented in this encounter Plan of Treatment Not on filedocumented as of this encounter Visit Diagnoses Not on filedocumented in this encounter
--- OUTSIDE RECORDS SUMMARY | 2022-04-05 08:03 | XMS_ITS | Encounter Summary ---
:1940 Author Organization [place] Address [address] [facility] [place] [address] Care Team Providers Name Role Phone Unavailable Primary Care Provider Unavailable Encounter Details Date Type Department Care Team Description 06/28/2010 Results Only [facility] Luis Alberto Dunbar MD [facility] Results [address] [place], [place] [address] (Wo rk) Social History Tobacco Use Types Packs/Day Years Used Date Never Assessed Sex Assigned at Date Recorded Not on file documented as of this encounter Plan of Treatment Not on filedocumented as of this encounter Procedures Procedure Name Priority Date/Time Associated Diagnosis Comme nts HEART CATH LEFT Routine 06/28/2010 11:23 AM Resul ts for this HEART CATH CONCILIATOR procedure are i n the results section. documented in this encounter Results Heart Cath Left heart cath (06/28/2010 11:23 AM CONCILIATOR) Anatomical Region Laterality Modality Other Specimen (Source) Anatomical Collection Method Collection Time Re ceived Time Location / / Volume Laterality 06/28/2010 11:23 AM CONCILIATOR Impressions 01/24/2012 2:41 PM CDT DONALDO YeboahTimothy MCCANN ?? PROCEDURES PERFORMED: 1. ??Coronary angiogram. 2. ??Left ventriculogram. ?? 3. ??Direct stenting to second obtuse ma rginal branch of the circumflex. ? CLINICAL SCENARIO/INDICATION: ??The anne ent presented to [facility] with chest pain and a si gnificant troponin elevation, without substantial ECG changes. ? CORONARY ANGIOGRAM: Left main coronary artery: ??Normal. ? Left anterior descending coronary artery : ??The LAD has mild to moderate diffuse atherosclerosis without focal severe epicardial stenosis. ??There is a large first diago nal which is also free of significant focal lesions. ?? Ramus intermedius: ??There is a two melania s that is of significant dimension. ??It has mild diffuse atheros clerotic changes without focal severe lesions. ? Circumflex (nondominant): There is a amaya y small first obtuse marginal. ??There is a large second obtu se marginal that has a critical (99%) stenosis in its mid segme nt. ??There is a small continuation of the AV groove circumflex without significant LV branches and without focal severe lesion s. ?? Right coronary artery (dominant): ??Diff use mild to moderate disease with a more prominent moderate to modera tely severe lesion at the crux. ??This involves the origin of a sm all PDA. ??There do not appear to be critical lesions. ??There is a lar ge posterolateral branch that has mild diffuse disease. ? Left heart catheterization: ??The left v entricular end-diastolic pressure was 21 mmHg. ??LV gram suggests mild diffuse hypokinesis, likely secondary to lateral wall hypokin esis. ??Visually estimated ejection fraction is 50-55%. ??There wetzel s not appear to be a significant degree of mitral insufficien cy. ??The aortic root appears unremarkable. ??There was no gradient on pullback of the pigtail catheter across the aortic valve. ? PERCUTANEOUS INTERVENTION: ??We proceede d with direct intervention to the second obtuse marginal branch of the circumflex. ??A 6 Tajik EBU 4.0 guide catheter was positioned into t he ostium of the left main. ?? The patient was given heparin adequate t o achieve an ACT greater than 200 seconds. ??He was continued on Integ rilin which was started yesterday. ??An 0.014 BMW wire was exten ded down the circumflex, across the lesion into a distal portion of the obtuse marginal branch. ??A 2.5 x 12 mm PROMUS (drug-elu ting) stent was extended over the wire, positioned across the stenosis and deployed at 15 atmospheres. ??The primary angiographic result was excellent. ??There was brisk JORGE ALBERTO 3 flow. ??No significant residual stenosis at the intervention site. ??There was mild narr owing of a small side branch of the OM but with normal flow. ? Total contrast was ? CONCLUSIONS: 1. ??Non-Q wave myocardial infarction se condary to critical lesion in second obtuse branch of the circumflex. ?? 2. ??Diffuse mild to moderate disease mo st prominent in the distal right coronary artery. ?? 3. ??Well-preserved left ventricular sys tolic function but with elevated left ventricular end-diastolic pressure. ?? 4. ??Successful direct stenting with melly g-eluting stent to second obtuse marginal branch of the circumflex . ?? 5. ??Will maximize patient's risk modifi cation, continue him on beta blockers and SHAD inhibitors. ??He will n eed a short course of cardiac rehab and likely go home in the next 24 to 48 hours. ? cc: ??Zen Rousseau MD ?? Luis Alberto Dunbar MD CV CARDIAC CATH ORDERABLES documented in this encounter Visit Diagnoses Not on filedocumented in this encounter
--- OUTSIDE RECORDS SUMMARY | 2022-04-05 08:03 | XMS_ITS | Encounter Summary ---
:1940 Author Organization [place] Address [facility] [place] [address] Care Team Providers Name Role Phone Elizabeth Rousseau MD Unavailable Elizabeth Rousseau MD Primary Care Provider Mckenzie Mayorga MD Primary Care Provider Luis Alberto Hernandez MD Primary Care Provider Mckenzie Mayorga MD Primary Care Provider Senthil Mckeon MD Primary Care Provider [phone] Ta Trimble MD Unavailable [phone] Ronnie Myers Primary Care Provider Mali Dowd APRN, CNP Unavailable Encounter Details Date Type Department Care Team Description 08/20/2011 Office Visit-[facility] Jeff Castañeda, [facility] [place] [address] [facility] [address] [facility] [address] [place] [address] [place] [address] (Wo rk) Social History Tobacco Use Types Packs/Day Years Used Date Never Assessed Sex Assigned at Date Recorded Not on file documented as of this encounter Progress Notes Abhijit Castañeda MD - 08/27/2011 1:18 PM CST Progress Note Created by: Abhijit Castañeda M.D. DATE: 08/20/2011 DONALDO BAUTISTA DATE OF : 1940 AGE: [age] years old Referring Physician: ELIZABETH ROUSSEAU Referring Clinic: [facility] CURRENT DIAGNOSES 1. - Shortness of Breath, 786.05 2. - Chest Pain-unspecified, 786.50 3. - Hyperlipidemia, 272.4 4. Obesity-(<LT>100'), 278.00 5. - Hypertension, 401.1 6. NV-S/P Inferior, 412 7. CAD, 414.00 ALLERGIES Penicillin, Itching and rash MEDICATIONS (prior to changes made today) 1. Advair Diskus 500-50 mcg/Dose Disk with Device 2. Aspirin 81 mg Tablet, 1 p.o. daily 3. Lisinopril 20 mg Tablet, 1 p.o. twice daily 4. metoprolol tartrate 50 mg Tablet, 1 p.o. twice daily 5. Niaspan Extended-Release 1,000 mg Tablet Sustained Release, 1 p.o. qHS Take apirin 30 minutes prior to Niaspan. 6. Nitrocellulose Aerosol, Noble, 1 p.o. PRN as Directed 7. Pravachol 80 mg Tablet, 1 p.o. qHS 8. Protonix 40 mg Tablet, Delayed Release (E.C.), 1 p.o. daily CHIEF COMPLAINTS yearly follow up HISTORY OF PRESENT ILLNESS I had the pleasure of seeing your patient, Donaldo Bautista, at [facility] evaluation of coronary artery disease, hyperlipidemia, and morbid obesity. Mr. Bautista is a 71-year-old male accompanied by his today, status post inferolateral wall myocardial infarction in 2009. He went on to have coronary angiography demonstrating high-grade stenosis of the second obtuse marginal branch artery which was then stented using a drug-eluting stent. He had mild to moderate disease in his other vessels. He had lateral wall hypokinesis with an ejection fraction of 50-55%. He has not had recurrence of his previous angina pectoris. A nuclear stress test performed in November,, demonstrated the inferolateral wall myocardial infarction, ejection fraction of 63%, and no areas of ischemia. The patient has not been exercising to any major extent. He eats excessive amounts of calories, fat, and carbohydrates. The patient denies PND, orthopnea, peripheral edema, syncope, orpresyncope. His most recent fasting lipid profile from your office dated 07/24/11 showed triglycerides 230, total cholesterol 202, HDL 57, LDL 99, with a ratio of 3.5. On physical exam, current blood pressure is 130/70, pulse is 64 and regular, weight 221 pounds, relatively unchanged from one year ago. BMI is 36. HEENT is benign without xanthelasma. Chest is clear toauscultation. Cardiac exam: Regular rate and rhythm with an S4 gallop, but no S3 or murmur. No JVD. Pulses are all intact without bruits. Abdomen is obese, soft, and nontender without organomegaly. Extremities are without cyanosis, clubbing, or edema. PAST HISTORY Past Medical Illnesses: hypercholesterolemia, dyspnea, [...] Brother 1 - Age 58, of cancer; CARDIAC RISK FACTORS Tobacco Abuse: negative; Family History of Heart Disease: unknown; Hyperlipidemia: positive; Hypertension: positive; Diabetes Mellitus: negative; Prior History of Heart Disease: negative; Obesity:negative; Sedentary Life Style:positive; Age:positive ; LDL Goal <LT> 100 SOCIAL HISTORY Alcohol Use - drinks occasionally; Smoking - used to smoke but quit and 1984; Diet - regular diet and caffeine use-3-4 per day; Lifestyle - and drives car; Exercise - no regular exercise; Seat Belt Use - always; 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 EYES wears eye glasses/contact lenses EARS, NOSE, THROAT, MOUTH denies any hearing loss, epistaxis, hoarseness or difficulty speaking. RESPIRATORY cough CARDIOVASCULAR negative for palpitations, chest pain, orthopnea, PND, peripheral edema, syncope or claudication. ABDOMINAL heart burn after drinking coffee GENITOURINARY-MALE nocturia x 2 MUSCULOSKELETAL legs ache at night NEUROLOGICAL hands and feet cold all the time, negative for headaches PSYCHIATRIC denies any history of depression, substance abuse or change in cognitive functions. ENDOCRINE intolerance to cold, hand and feet always cold HEMATOLOGICAL/IMMUNOLOGIC medication allergies PHYSICAL EXAMINATION VITAL SIGNS: Blood Pressure: 130/70Sitting, Right arm, large cuff Pulse- 64.00/min. Weight- 221.30 lbs. Height- 66 CONSTITUTIONAL in no acute distress, appears older [...] time, person and place. MEDICATIONS UPDATED/STARTED TODAY: metoprolol tartrate 50 mg Tablet, 1 p.o. twice daily, #0 (Zero) MEDICATIONS REFILLED/STOPPED TODAY: Metoprolol Tartrate 100 mg Tablet 1 p.o. twice daily #-1 Dosage Decreased and Plavix 75 mg Tablet 1 p.o. daily #-1 Physician Order IMPRESSIONS/PLAN ASSESSMENT: 1. Donaldo Bautista is a pleasant 71-year-old male with numerous cardiovascular risk factors. At this point he has known coronary artery disease without recurrent angina. A stress test nine months ago was without ischemia. I would continue with his current medications as we are. I do not believe a followup stress test is necessary at this time. I have asked him to discontinue his Plavix. 2. The patient'sdiet, exercise, and weight all need attention. I have attempted to direct him to a nutrition consult, but he does not wish to drive to [facility]. Perhaps you have a newspaper columnist that works through [employer] that would be more convenient for him. 3. I did spend greater than 50% of my 30 minute visit with him today counseling him on diet, exercise, and weight loss. 4. This patient's LDL cholesterol is probably small, dense and he probably has increased particle numbers given the high triglycerides. This would certainly improve with diet, exercise, and weight loss. In the meantime he has not tolerated Lipitor in the past. In order to get his triglycerides down without adding further medicines, perhaps using Crestor instead of pravastatin would allow better control without adding medicines. Thank you very much for allowing me to help care for this delightful patient. It is my plan to see him again in one year, or earlier on a p.r.n. basis as you direct. TODAYS ORDERS 1. Return Visit 1 year 2. NUTRITION CONSULTS Please Enroll Today Abhijit Castañeda M.D. documented in this encounter Plan of Treatment Not on filedocumented as of this encounter Visit Diagnoses Not on filedocumented in this encounter Care Teams Cushion Filler Relationship Specialty Start Date End Date Elizabeth Rousseau MD PCP - General Family Practice 08/01/12 08/09/[address] [address] Mckenzie Mayorga MD PCP - General 08/10/15 10/09/15 [place] [address] [place] [address] Luis Alberto Hernandez MD PCP - General Family Practice 10/10/15 07/25/16 Mckenzie Mayorga MD PCP - General 07/26/16 12/02/18 [facility] [address] [place], [place] [id number] Senthil Mckeon, PCP - General 12/03/18 Ronnie Myers PCP - General Family Medicine 09/11/21 [facility] [address] [place] [address] Elizabeth Rousseau MD MD Family Practice 07/31/[address] [address] Ta Trimble Assigned Heart and 05/27/20 2 MD [facility] Provider [address] [place] [address] Mali Dowd APRN BOILER HOUSE INSPECTOR Assigned Heart and 10/08/21 [address] [place] [address] documented as of this encounter
--- OUTSIDE RECORDS SUMMARY | 2022-04-05 08:03 | XMS_ITS | Encounter Summary ---
:1940 Author Organization [place] Address [address] [facility] [place] [address] Care Team Providers Name Role Phone Unavailable Primary Care Provider Unavailable Encounter Details Date Type Department Care Team Description 06/28/2010 Historic Notes INTERFACED REPORT Interface, Transcript MD fabien Social History Tobacco Use Types Packs/Day Years Used Date Never Assessed Sex Assigned at Date Recorded Not on file documented as of this encounter Progress Notes Interface, Credentialing Analyst - 10/20/2010 3:09 PM CDT NUTRITION NOTE Consulted for [facility] oupt referal. Forms filled out and faxed. [Signature] Author: Kat Jackson (RD, LD) [Signed 14:42] documented in this encounter Plan of Treatment Not on filedocumented as of this encounter Visit Diagnoses Not on filedocumented in this encounter
--- OUTSIDE RECORDS SUMMARY | 2022-04-05 08:03 | XMS_ITS | Encounter Summary ---
:1940 Author Organization [place] Address [facility] 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 Procedure Notes: Chest pain unspecified ON MEDS Rh Nuclear Medicine Procedures RADIOLOGY [address] [place], [place] [address] Phone: Fax: Referral ID Status Reason Start Date Expiration Date Visits Requ ested Visits Authorized [id number] Closed 07/31/2012 07/31/2013 1 1 Encounter Details Date Type Department Care Team Description 08/01/2012 Hospital Encounter [facility] Craig Godfrey, Imaging [address] [facility] [address] [place], [place] [address] [address] [place], [place] [id number] (Wo rk) Social History Tobacco Use Types Packs/Day Years Used Date Never Assessed Sex Assigned at Date Recorded Not on file documented as of this encounter Progress Notes Ty Provider - 08/02/2012 12:22 AM CST IC BATH ATTENDANT documented in this encounter Plan of Treatment Not on filedocumented as of this encounter Visit Diagnoses Not on filedocumented in this encounter Care Teams Water Quality Manager Relationship Specialty Start Date End Date Zen Rousseau MD PCP - General Family Practice 08/01/12 08/09/15 [facility] [address] [place] [address] Zen Rousseau MD MD Family Practice 07/31/12 [facility] [address] [place] [address] documented as of this encounter
--- OUTSIDE RECORDS SUMMARY | 2022-04-05 08:03 | XMS_ITS | Encounter Summary ---
:1940 Author Organization [place] Address [facility] hospital0 [facility] [place] [address] Care Team Providers Name Role Phone Elizabeth Rousseau MD Unavailable Elizabeth Rousseau MD Primary Care Provider Mckenzie Mayorga MD Primary Care Provider Luis Alberto Hernandez MD Primary Care Provider Mckenzie Mayorga MD Primary Care Provider Senthil Mckeon MD Primary Care Provider [phone] Ta Trimble MD Unavailable [phone] Ronnie Myers Primary Care Provider Mali Dowd APRN, CNP Unavailable Encounter Details Date Type Department Care Team Description 07/31/2012 Office Visit-[facility] Heart Craig Godfrey, [facility] [place] [facility] [address] [facility] [address] [facility] [address] [place] [address] [place] [address] (Wo rk) Social History Tobacco Use Types Packs/Day Years Used Date Never Assessed Sex Assigned at Date Recorded Not on file documented as of this encounter Progress Notes Craig Godrfey MD - 08/04/2012 3:17 PM CST Progress Note Created by: Craig Godfrey M.D. DATE: 07/31/2012 DONALDO BAUTISTA DATE OF : 1940 AGE: [age] years old Referring Physician: ELIZABETH ROUSSEAU Referring Clinic: [facility] CURRENT DIAGNOSES 1. - Shortness of Breath, 786.05 2. - Chest Pain-unspecified, 786.50 3. - Hyperlipidemia, 272.4 4. Obesity-(<LT>100'), 278.00 5. - Hypertension, 401.1 6. NV-S/P Inferior, 412 7. CAD, 414.00 ALLERGIES Penicillin, Itching and rash MEDICATIONS (prior to changes made today) 1. Aspirin 81 mg Tablet, 1 p.o. daily 2. Lisinopril 20 mg Tablet, 1 p.o. twice daily 3. metoprolol tartrate 50 mg Tablet, 1 p.o. twice daily 4. Niaspan Extended-Release 1,000 mg Tablet Sustained Release, 1 p.o. qHS Take apirin 30 minutes prior to Niaspan. 5. Nitrocellulose Aerosol, Peridot, 1 p.o. PRN as Directed 6. Pravachol 80 mg Tablet, 1 p.o. qHS 7. Protonix 40 mg Tablet, Delayed Release (E.C.), 1 p.o. daily CHIEF COMPLAINTS Followup of - Chest Pain-unspecified HISTORY OF PRESENT ILLNESS It was my pleasure to see Mr. Bautista today at the request of Dr. Rousseau. He is here for evaluationof chest pains which may possibly represent angina. I have reviewed this gentleman's previous medical records. 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 My former colleague, Dr. Luis Alberto Dunbar, performed angiography and described mild to moderate disease in his coronary vasculature with the exception of a subtotally occluded OM-2 which was angioplastied and stented. He has been free of chest pains when seen in the early part of this year by my colleague, Dr. Abhijit Castañeda. His stress nuclear study showed only the presence of small basal inferior/inferolateral scarring without inducible ischemia. As his risk factor control is suboptimal Dr. Castañeda recommended several lifestyle changes. Mr. Bautista tells me that he has been having chest pains for the last month or so. He describes this as lasting less than a second. It is sharp and like a needle prick. It is nonexertional and has no relation to rest. In fact, it is not associated with any specific triggering factors. He has no diabetes. He has not had any musculoskeletal injuries recently. He denies stresses in his life right now. His blood pressure appears excellent at 111/65. Heart sounds are normal. I did not detect chest walltenderness. His chest is clear. His last set of lipid numbers was from the end of last year which showed LDL just below 100, and HDL at 57, with triglycerides at 230. His weight has not changed much. He freely admits to not having been exercising at all, though he has a treadmill in the basement. He has not been watching his diet much either. 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 EYES wears eye glasses/contact lenses EARS, NOSE, THROAT, MOUTH runny nose in am's RESPIRATORY productive cough, phlegm CARDIOVASCULAR chest pain, sharp pain that lasts approx 1 second - happening more often in last 2 weeks, negative for palpitations, negative for dizziness, negative for edema ABDOMINAL GERD , heart burn after drinking coffee and mostly at pm's and better since taking meds GENITOURINARY-MALE nocturia x 2 MUSCULOSKELETAL legs ache at night, candelario horses NEUROLOGICAL hands and feet cold all the time, negative for headaches PSYCHIATRIC denies any history of depression, substance abuse or change in cognitive functions. ENDOCRINE intolerance to cold, hand and feet always cold HEMATOLOGICAL/IMMUNOLOGIC medication allergies PHYSICAL EXAMINATION VITAL SIGNS: Blood Pressure: 111/65Sitting, Right arm, large cuff Pulse- 64.00/min. Weight- 218.40 lbs. Height- 66.0 BMI Measurement: 35 CONSTITUTIONAL in no acute [...] time, person and place. MEDICATIONS UPDATED/STARTED TODAY: MEDICATIONS REFILLED/STOPPED TODAY: Advair Diskus 500-50 mcg/Dose Disk with Device Treatment Completed IMPRESSIONS/PLAN I very much doubt that his pain is angina. Angina would certainly last more than a second. In addition, his pain is not precipitated by exertion, nor does it have any relation to rest. It certainly sounds much more like neuropathic or musculoskeletal pains. However, he does have mild to moderate coronary artery disease and to be on the safe side I will request a stress nuclear study. If this does notshow any significant changes from previously, he should follow up with his primary physician for further evaluation of his noncardiac chest pains. Otherwise, I have set him up to see Dr. Castañeda in a year's time. Finally, I have again discussed the importance of having a better diet and more exercise. He tells me he will start using his treadmill in the basement. TODAYS ORDERS 1. F/U with Abhijit Castañeda MD 1 year 2. Treadmill Nuclear Study 3 days, Patient ON Meds, MD able to convert to pharm stress if pt unable to exercise Craig Godfrey M.D. documented in this encounter Plan of Treatment Not on filedocumented as of this encounter Visit Diagnoses Not on filedocumented in this encounter Care Teams Cigarette Tipper Relationship Specialty Start Date End Date Elizabeth Rousseau MD PCP - General Family Practice 08/01/12 08/09/[address] [address] Mckenzie Mayorga MD PCP - General 08/10/15 10/09/[address] [address] Luis Alberto Hernandez MD PCP - General Family Practice 10/10/15 07/25/16 Mckenzie Mayorga MD PCP - General 07/26/16 12/02/18 [facility] [address] [address] Senthil Mckeon PCP - General 12/03/18 Ronnie Myers PCP - General Family Medicine 09/11/[address] [id number] Elizabeth Rousseau MD MD Family Practice 07/31/[address] [address] Ta Trimble Assigned Heart and 05/27/20 2 MD [facility] Provider [address] [place] [address] Mlai Dowd APRN CNP Assigned Heart and 10/08/21 [address] [place] [address] documented as of this encounter
--- OUTSIDE RECORDS SUMMARY | 2022-04-05 08:03 | XMS_ITS | Encounter Summary ---
:1940 Author Organization [place] Address [address] [facility] [place] [address] Care Team Providers Name Role Phone Zen Rousseau MD Unavailable Zen Rousseau MD Primary Care Provider Reason for Visit (Routine) - Closed Specialty Diagnoses / Procedures Referred By Contact Refer red To Contact Cardiology Diagnoses THALLIUM STRESS TEST Procedure Notes: Chest pain unspecified ON MEDS Zz Rh Echocardiography Procedures RADIOLOGY [address] [place], [place] [address] Phone: Referral ID Status Reason Start Date Expiration Date Visits Requ ested Visits Authorized [id number] Closed 07/31/2012 07/31/2013 1 1 Encounter Details Date Type Department Care Team Description 08/01/2012 Hospital Encounter [facility] Craig Godfrey, Cardiopulmonary MD [address] [facility] [address] [place], [place] [address] [place], [place] [address] (Wo rk) Social History Tobacco Use Types Packs/Day Years Used Date Never Assessed Sex Assigned at Date Recorded Not on file documented as of this encounter Progress Notes Abstract, Provider - 08/02/2012 12:22 AM CST R READING CLERK documented in this encounter Plan of Treatment Not on filedocumented as of this encounter Visit Diagnoses Not on filedocumented in this encounter Care Teams Engineering Scientist Relationship Specialty Start Date End Date Zen Rousseau MD PCP - General Family Practice 08/01/12 08/09/[address] [facility] [address] [place] [address] Zen Rousseau MD MD Family Practice 07/31/[address] [facility] [address] [place] [address] documented as of this encounter
--- OUTSIDE RECORDS SUMMARY | 2022-04-05 08:03 | XMS_ITS | Encounter Summary ---
:1940 Author Organization [place] Address Count includes the [facility] [place] [address] Care Team Providers Name Role Phone Unavailable Primary Care Provider Unavailable Encounter Details Date Type Department Care Team Description 06/27/2010 Historic Results INTERFACED REPORT Interface, Ion cramer MD Social History Tobacco Use Types Packs/Day Years Used Date Never Assessed Sex Assigned at Date Recorded Not on file documented as of this encounter Plan of Treatment Not on filedocumented as of this encounter Procedures Procedure Name Priority Date/Time Associated Diagnosis Comme nts EKG 12 LEAD Routine 06/27/2010 2:01 PM Results f or this ELECTRONICS TECHNICIAN APPRENTICE procedure are i n the results section . documented in this encounter Results EKG 12 LEAD (06/27/2010 2:01 PM ELECTRONICS TECHNICIAN APPRENTICE) Component Value Ref Range Test Analysis Performed Pathologis t Method Time At Signature Ventricular Rate 121 BPM RADIOLOGY RESULTS Atrial Rate 121 BPM RADIOLOGY RESULTS SD Interval 160 ms RADIOLOGY RESULTS QRS Duration 86 ms RADIOLOGY RESULTS QT 324 ms RADIOLOGY RESULTS QTc 460 ms RADIOLOGY RESULTS P [place] 62 degrees RADIOLOGY RESULTS R AXIS 19 degrees RADIOLOGY RESULTS T [place] 54 degrees RADIOLOGY RESULTS Interpretation Sinus tachycardia RADIOLO GY ECG Otherwise normal ECG RESULTS Unconfirmed report - interpretation of this ECG is compute r generated - see medical record for final interpretation Specimen Anatomical Collection Method Collection Time Receive d Time (Source) Location / / Volume Laterality 06/27/2010 2:01 PM 0 1:55 ELECTRONICS TECHNICIAN APPRENTICE PM ELECTRONICS TECHNICIAN APPRENTICE Transcripton Interface ECG ORDERABLES Performing Organization Address City/State/ZIP Code Phon e Number RADIOLOGY RESULTS documented in this encounter Visit Diagnoses Not on filedocumented in this encounter
--- OUTSIDE RECORDS SUMMARY | 2022-04-05 08:03 | XMS_ITS | Encounter Summary ---
:1940 Author Organization [place] Address [address] [facility] [place] [address] Care Team Providers Name Role Phone Unavailable Primary Care Provider Unavailable Encounter Details Date Type Department Care Team Description 06/27/2010 Historic Notes INTERFACED REPORT Interface, Transcript MD fabien Social History Tobacco Use Types Packs/Day Years Used Date Never Assessed Sex Assigned at Date Recorded Not on file documented as of this encounter Progress Notes Interface, Communication Equipment Repairer - 10/20/2010 3:15 PM CDT General Information - How to be Addressed Erlin - Patient Belongings none - prep person #1: Gail - Relationship to patient #1: - Phone 1: [phone] - Patient's spoken language; Gabonese or Bilingual communication style Advance Directive - Do you have an No Advanced Health Care Directive? - Would you like more No information about Advanced Health Care Directives? Health and Illness - Reason for visit as CP Stated by Patient Role Relationships/Living Environment - Limitations on none Visitors/Phone Calls/TV - Lives With spouse Substance Use - Tobacco Use None. - Caffeine Use Yes - Alcohol Use none - History of street No drug/inhalant/ medication abuse Review of Systems - Pain: 0 Comfort/Acceptable Pain Level (0-10) - Cardiac high cholesterol Conditions/Symptoms - Nutrition Risk Screen No risk indicators present - GI GERD; appy, sary Conditions/Symptoms - Ambulation 0 - Independent with ambulation - Transferring 0 - Independent with transfers - Toileting 0- Independent with toileting - Bathing 0- Independent with bathing - Dressing 0- Independent with dressing - Eating 0- Independent with eating - Swallowing no swallowing issues reported - Cognition no cognition issues reported - Communication/speech no speech or language problems - Fall history within No history of falls last six months - Which of the above none functional risks had a recent onset or change? - Endocrine none Conditions/Symptoms - Immune /Infections none - Influenza vaccine has received for this flu season - Pneumococcal Vaccine previously immunized - Mental Health none Conditions/Symptoms Skin Inspection - Skin Inspection: WDL: color consistent w/ ethnicity; no abnormality in temperature, moisture, turgor, integrity Coping Stress/Abuse - Major none Change/Loss/Stressor - QUESTION TO PATIENT: No Has a member of your family or a partner(now or in the past) intimidated, hurt, manipulated, or controlled you in any way? - NURSE OBSERVATION: Is No there reason to believe there has been maltreatment of a vulnerable adult (ie. Physical/Sexual/Emot_ ioanl abuse, self neglect, lack of adequate food, fpc, medical care, or financial exploitation)? Values/Beliefs/Spiritual Care - C: Community: In no thank you support of your spiritual health, is there someone we may contact for you? (identify all that apply) Learning Assessment - Factors Influencing no factors identified Readiness to Learn - Factors that Impact none Ability to Learn - Learning Preferences written material - Cultural none Considerations - Developmental none Considerations - Temple none Considerations Mutuality/Individual Preferences - What information none would help us give you more personalized care? BRITTNEE Cuevas (RN)[Signed 10:22] Authored: General Information, Advance Directive, Health and Illness, Role Relationships/Living Environment, Substance Use, Review of Systems, Skin Inspection, Coping Stress/Abuse, Values/Beliefs/Spiritual Care, Learning Assessment, Mutuality/Individual Preferences Interface, Communication Equipment Repairer - 10/20/2010 3:14 PM CDT Patient Status - Diagnosis/Procedure chest pain, placement of stent, CAD, MO - Physical status Stable (s/s of potential complications absent or manageable) - Psychosocial status Stable Interdisciplinary Plan of Care Problem Status/Summary - Unresolved cont with cardiac rehab, follow up with [place] Heart problems/follow-up to manage coronary heart disease plan - Discharge Summary vss, up in room without pain, without shortness Note (indicate of breath, or symptoms of cad, Alert & oriented, follow-up plan for billings, cms intact, rt groin site intact without unresolved problems bleeding, without hematoma and goals/outcomes) Discharge Planning - Discharge From: [facility] - Patient Care Unit: icu - PCU - Discharge To: Home/Alternative home - Phone number after [phone] discharge: - Method of discharge: Wheel Chair - Transportation: Private Discharge Information - Valuables returned Valuables returned - Discharge information Discharge instructions reviewed with pt/family/so; Prescriptions given - Accompanied by Spouse; daughter - Mode of Travel Wheelchair Medications and Prescriptions - Medications and Prescriptions are needed Prescriptions given to Prescriptions patient Support Services - Is home care No recommended? - Supplies sent/ordered No - Equipment No sent/ordered - Other Services No arranged Special Care Needs and Instructions - Diet Instructions: As tolerated. Drink plenty of water daily to keep well hydrated. follow low sodium (salt) low fat diet - Activity as tolerated Instructions: - Report temp if 101 degrees F greater than: - Symptoms/Problems to You are having trouble keeping liquids down. look for at home- You have new symptoms or your symptoms are worse call the physician than before. about: You have questions or concerns about your condition, medicine, or care. Increased chest pain, shortness of breath, dizziness, sweating, nausea and / or vomiting - Who patient should Primary - [place] [facility] call: - Is patient going home No with IV Catheter?: - IV Catheter type: removed Other Discharge Education, Materials, and Instructions - Other Education, Thank you for allowing [facility] to Materials, and participate in your cares!!! Instructions: Follow Up Care - Physician/clinician Primary [facility] name: - When to see 1-2 weeks physician/clinician: - Physician/clinician Fabio heart Nurse pratiticioner name: - - When to see 2-3 weeks physician/clinician: - Physician/clinician Fabio Heart Dr. Dunbar or Elzbieta name: - - When to see 1-2 months physician/clinician: - Physician/clinician Cardiac Rehab name: - - When to see next week, if not called by Saturday, you call physician/clinician: them - Instructions: Will need repeat echo in 1 month, lab draws Signatures AAKASH GARCIA (RN)[Signed 12:02] Authored: Patient Status, Interdisciplinary Plan of Care Problem Status/Summary, Discharge Planning,Discharge Information, Medications and Prescriptions, Support Services, Special Care Needs and Instructions, Follow Up Care BRITTNEE ANTOINE (RN)[Signed 12:09] Authored: Patient Status, Discharge Planning, Discharge Information, Special Care Needs and Instructions, Other Discharge Education, Materials, and Instructions, Follow Up Care Interface, Communication Equipment Repairer - 10/20/2010 3:14 PM CDT Progress Note - :: Trop at 1300+ 21.2. o2 applied. EKG obtained. @ 1357 BP 171/95, hr 117. 97% 2l nc. pt c/o burning in left chest , over heart area. rating 2/10. pt denies any other pain, sob. 1 st nitro given. @1402 BP 131/ 81 hr 121. pain is gone. @ 1407 bp 149/86 hr 117. pain is gone. Orders for heparin gtt is ordered. Will start once available. Signatures VIKA DE LEON (RN)[Signed 14:09] Authored: Progress Note Interface, Communication Equipment Repairer - 10/20/2010 3:12 PM CDT Progress Note - :: Received pt. Started new IV to facilitate integrilin. BP high, Troponins continuing to rise. Dr. Barnard notified. Signatures Bladimir Gallardo (RN)[Signed 19:16] Authored: Progress Note Interface, Communication Equipment Repairer - 10/20/2010 3:12 PM CDT Notification - Notified Person:: MD - Notified Persons dr. george Name: - Notification Time:: 21:45 - Notification Paged Interaction:: - Was a message left?: Yes - Purpose of Critical results read back notification:: - Orders received?: No - Comments:: notified md of troponin of 67.300 Signatures MACO SALCIDO (RN)[Signed 21:49] Authored: MD Notification Interface, Communication Equipment Repairer - 10/20/2010 3:12 PM CDT Progress Note - :: Pt's 2030 troponin came back at 67.300, Cards were called and talked a Dr. Rodarte, per MD as long as patient does not have chest pain and has stable vital signs does not need to go to calibration laboratory technician emergently. Will continue to monitor Signatures MACO SALCIDO (RN)[Signed 22:12] Authored: Progress Note documented in this encounter Plan of Treatment Not on filedocumented as of this encounter Visit Diagnoses Not on filedocumented in this encounter
--- OUTSIDE RECORDS SUMMARY | 2022-04-05 08:03 | XMS_ITS | Encounter Summary ---
:1940 Author Organization [place] Address [facility] [place] [address] Care Team Providers Name Role Phone Unavailable Primary Care Provider Unavailable Encounter Details Date Type Department Care Team Description 06/28/2010 Historic Results INTERFACED REPORT Interface, Ion cramer MD Social History Tobacco Use Types Packs/Day Years Used Date Never Assessed Sex Assigned at Date Recorded Not on file documented as of this encounter Plan of Treatment Not on filedocumented as of this encounter Procedures Procedure Name Priority Date/Time Associated Diagnosis Comme nts EKG 12 LEAD Routine 06/28/2010 11:43 AM Results for this FINISHING MACHINE TENDER procedure are i n the results section . documented in this encounter Results EKG 12 LEAD (06/28/2010 11:43 AM FINISHING MACHINE TENDER) Component Value Ref Range Test Analysis Performed Pathologis t Method Time At Signature Ventricular Rate 49 BPM RADIOLOGY RESULTS Atrial Rate 49 BPM RADIOLOGY RESULTS MI Interval 154 ms RADIOLOGY RESULTS QRS Duration 88 ms RADIOLOGY RESULTS QT 450 ms RADIOLOGY RESULTS QTc 406 ms RADIOLOGY RESULTS P [place] 68 degrees RADIOLOGY RESULTS R AXIS 11 degrees RADIOLOGY RESULTS T [place] 41 degrees RADIOLOGY RESULTS Interpretation Sinus bradycardia RADIOLO GY ECG Abnormal ECG RESULTS When compared with ECG of 28-JUN-2010 05:03, (unconfirmed) Fusion complexes are no longer Present Unconfirmed report - interpretation of this ECG is compute r generated - see medical record for final interpretation Specimen Anatomical Collection Method Collection Time Receive d Time (Source) Location / / Volume Laterality 06/28/2010 11:43 06/28/2010 1:57 AM FINISHING MACHINE TENDER PM FINISHING MACHINE TENDER Transcripton Interface ECG ORDERABLES Performing Organization Address City/State/ZIP Code Phon e Number RADIOLOGY RESULTS documented in this encounter Visit Diagnoses Not on filedocumented in this encounter
--- OUTSIDE RECORDS SUMMARY | 2022-04-05 08:03 | XMS_ITS | Encounter Summary ---
:1940 Author Organization [place] Address [facility] [place] [address] Care Team Providers Name Role Phone Unavailable Primary Care Provider Unavailable Encounter Details Date Type Department Care Team Description 02/26/2011 Hospital Pathology [facility] Shahram Lezama MD [facility] [place] [address] (Wo rk) Social History Tobacco Use Types Packs/Day Years Used Date Never Assessed Sex Assigned at Date Recorded Not on file documented as of this encounter Plan of Treatment Not on filedocumented as of this encounter Procedures Procedure Name Priority Date/Time Associated Diagnosis Comme [facility] SURGICAL PATHOLOGY Routine 02/26/2011 12:00 AM Re sults for this EXAM CDT procedure are i n the results section. 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 ??Negative for high grade dysplasia an d malignancy. Electronically signed out by: Arron Lepe M.D. CLINICAL HISTORY: History colon polyps. GROSS: The specimen is labeled descending polyp and it consists o f a 0.2 x 0.1 cm pink-gamez fragment of tissue. ??Entirely submitted. ?? BRITNI/lina MICROSCOPIC: Microscopic evaluation was performed. Cautery artifact limit s evaluation. [place] 02-27-11 TESTING LAB LOCATION: [facility] [address] [place] COLLECTION SITE: Client: [facility] Location: ENDO (R) Specimen (Source) Anatomical Collection Method Collection Time Re ceived Time Location / / Volume Laterality 02/26/2011 02/26/2011 2:05 PM CDT Edna NORMAN - KYLE EDEN Performing Organization Address City/State/ZIP Code Phon e Number COPATH documented in this encounter Visit Diagnoses Not on filedocumented in this encounter
--- OUTSIDE RECORDS SUMMARY | 2022-04-05 08:03 | XMS_ITS | Encounter Summary ---
:1940 Author Organization [place] Address [address] [facility] [address] Care Team Providers Name Role Phone Unavailable Primary Care Provider Unavailable Encounter Details Date Type Department Care Team Description 06/27/2010 Admission H&P M [facility] Ale Thompson, (Window Trimmer Apprentice) [facility] Results [address] [place] [address] (Wo rk) Social History Tobacco Use Types Packs/Day Years Used Date Never Assessed Sex Assigned at Date Recorded Not on file documented as of this encounter Progress Notes Ale Thompson - 07/10/2010 11:18 AM KINESIOLOGIST FINAL CHIEF COMPLAINT: Chest pain. HISTORY OF PRESENT ILLNESS: Donaldo Bautista is a 70-year-old patient with history of hyperlipidemia who presents with anterior chest pain that started on the morning of admission. 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 He went back home and the pain was still there. It lasted about a half an hour, after which he called his son and was brought to the emergency room. The patient reports the pain to be on admission around 7-8/10 in intensity, with no improvement with taking two aspirin and two nitroglycerin. Eventually he was given Toradol, which seemed to alleviate the pain down to 4/10. He also received morphine sulfate 4 mg and the pain resolved. Currently he is pain-free. No associated shortness of breath, heart palpitations. No cough or phlegm production. Prior history of chest pain reported with a burning character with ambulation present for years.He had a stress test two years ago which was normal. REVIEW OF SYSTEMS: Per patient, negative regarding headaches, nausea or vomiting. Chest pain now resolved. No shortness of breath, cough or phlegm production. He has a history of some dry cough with shortness of breath with exertion for which he was on treatment with Advair, now off treatment. Deniesany abdominal pains, indigestion, change in bowel habits. No diarrhea, no blood in stool. Denies urinary burning, pains or frequency. Denies any leg edema, swelling of the joints, skin changes, rashes,or broken skin areas. No visual or hearing impairment. No neurological deficits, numbness, tingling or weakness. PAST MEDICAL HISTORY: Significant for hyperlipidemia. PAST SURGICAL HISTORY: 1.Partial colectomy for colon polyps. 2.History of cholecystectomy. 3.Appendectomy. ALLERGIES: Penicillin which causes itching of the hands. CURRENT MEDICATIONS: 1.Pravastatin, takes 80 mg daily. 2.Vitamin B12 1000 mg daily. SOCIAL HISTORY: He is . Remote history of smoking, quit over 10 years ago. No history of alcohol or drug abuse. He is physically active, but does not do any exercise on a regular basis. 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 FAMILY HISTORY: Heart disease, myocardial infarction in six of his siblings, cancer in his brother,abdominal cancer, unknown exact type. PHYSICAL EXAMINATION: GENERAL: Currently appears comfortable, not in acute distress. VITAL SIGNS: On admission, his blood pressure was 200/120. Currently, blood pressure 168/86, pulse rate 88, oxygen saturation is 100% on room air, temperature 98.2. HEENT: Pupils equal, reactive to light. No icterus of the sclerae. Oral mucosa clean and moist. NECK: Supple. CHEST: Clear to auscultation. CARDIOVASCULAR: Regular rate and rhythm without murmur. ABDOMEN: Soft, nondistended. Present bowel sounds. No palpable masses. EXTREMITIES: Without edema. Habitus obese. NEUROLOGIC: No focal neurological deficits. CLINICAL DATA: Chest x-ray of the patient shows a normal chest, no infiltrates, no significant cardiomegaly. Troponin under 0.012. Renal panel, electrolytes, LFTs normal. D-dimer 0.3, normal. INR 0.91. CBC: White cells 13.1, slightly elevated; rest of his CBC is normal. EKG of the patient does show sinus rhythm with sinus arrhythmia, normal QRS progression, no acute ischemia. IMPRESSION AND PLAN: Chest pain related to activity, suspicious for anginal pain. Risk factors include hyperlipidemia, history of smoking, family history of heart disease. He also presents with significantly elevated blood pressure, not on antihypertensive treatment, which certainly can precipitate chest pains. Currently asymptomatic. We will admit to telemetry, rule out myocardial infarction in hisdiagnosis. The patient will be started on metoprolol 25 mg every 6 hours. Plan for repeated troponins every 6 hours. If negative, stress test with stress echocardiogram in a.m. Continue treatment with statin Pravachol 80 mg daily. Start aspirin 325 mg daily. CONDITION: Currently stable. CODE STATUS: Full code. Electronically signed on 07/10/2010 11:18 by ALE THOMPSON MD MT: QING#[id number] Name: DONALDO BAUTISTA MRN: [id number] Account: [id number] : 1940 Admitted: [id number] Document: [id number] SIOLOGIST documented in this encounter Plan of Treatment Not on filedocumented as of this encounter Visit Diagnoses Not on filedocumented in this encounter
--- OUTSIDE RECORDS SUMMARY | 2022-04-05 08:03 | XMS_ITS | Encounter Summary ---
:1940 Author Organization [place] Address [address] [facility] [place] [address] Care Team Providers Name Role Phone Unavailable Primary Care Provider Unavailable Encounter Details Date Type Department Care Team Description 06/28/2010 Historic Results [facility] [address] [place] [address] [address] [place], [place] [address] (Wo rk) Social History Tobacco Use Types Packs/Day Years Used Date Never Assessed Sex Assigned at Date Recorded Not on file documented as of this encounter Plan of Treatment Not on filedocumented as of this encounter Procedures Procedure Name Priority Date/Time Associated Comments Diagnosis PARTIAL THROMBOPLASTIN STAT 06/28/2010 2:44 PM Results for this TIME V BELT BUILDER procedure are i n the results section. ACTIVATED CLOTTING TIME Routine 06/28/2010 10:16 Results for this POCT AM V BELT BUILDER procedure are i n the results section. INR AND PTT PANEL Timed 06/28/2010 5:20 AM Resu lts for this V BELT BUILDER procedure are i n the results section. TROPONIN I Timed 06/28/2010 5:20 AM Results f or this V BELT BUILDER procedure are i n the results section. LIPID PROFILE Routine 06/28/2010 5:20 AM Results for this V BELT BUILDER procedure are i n the results section. HEPARIN 10A LEVEL Routine 06/28/2010 5:20 AM Resu lts for this V BELT BUILDER procedure are i n the results section. BASIC METABOLIC PANEL Routine 06/28/2010 5:20 AM Results for this V BELT BUILDER procedure are i n the results section. CBC WITH PLATELETS Routine 06/28/2010 5:20 AM Res ults for this V BELT BUILDER procedure are i n the results section. documented in this encounter Results Partial thromboplastin time (06/28/2010 2:44 PM V BELT BUILDER) P athologist Signature PTT 33 22 - 37 sec MISYS Specimen Anatomical Collection Method Collection Time Receive d Time (Source) Location / / Volume Laterality 06/28/2010 2:44 PM 0 2:40 V BELT BUILDER PM V BELT BUILDER Luis Alberto Dunbar MD LAB - BLOOD ORDERABLES Performing Organization Address City/[facility] Phon e Number MISYS (ABNORMAL) Activated clotting time POCT (06/28/2010 10:16 AM V BELT BUILDER) P athologist Signature Activated Clot 175 (H) 105 - 167 MISYS Time sec Specimen Anatomical Collection Method Collection Time Receive d Time (Source) Location / / Volume Laterality 06/28/2010 10:16 06/28/2010 AM V BELT BUILDER 10:50 AM V BELT BUILDER Rohit Maya MD LAB - ENTER/EDIT POCT Performing Organization Address City/[facility] Phon e Number MISYS (ABNORMAL) CBC with platelets (06/28/2010 5:20 AM V BELT BUILDER) Analysis Performed At Patho logist Time Signature MCV 91 78 - 100 MISYS fl MCH 29.3 26.5 - MISYS 33.0 pg MCHC 32.3 31.5 - MISYS 36.5 g/dL RDW 13.6 10.0 - MISYS 15.0 % WBC 12.7 (H) 4.0 - 11.0 MISYS 10e9/L RBC Count 4.60 4.4 - 5.9 MISYS 10e12/L Hemoglobin 13.5 13.3 - MISYS 17.7 g/dL Hematocrit 41.8 40.0 - MISYS 53.0 % Platelet Count 205 150 - 450 MISYS 10e9/L Specimen (Source) Anatomical Collection Method Collection Time Re ceived Time Location / / Volume Laterality 06/28/2010 5:20 AM 0 V BELT BUILDER Naun Thompson MD LAB - BLOOD ORDERABLES Performing Organization Address [facility] Phon e Number MISYS (ABNORMAL) Basic metabolic panel (06/28/2010 5:20 AM V BELT BUILDER) P athologist Signature Sodium 137 133 - 144 MISYS mmol/L Potassium 4.6 3.4 - 5.3 MISYS mmol/L Chloride 104 94 - 109 MISYS mmol/L Carbon Dioxide 28 20 - 32 MISYS mmol/L Glucose 132 (H) 60 - 99 MISYS mg/dL Urea Nitrogen 19 7 - 30 MISYS mg/dL Creatinine 0.67 0.66 - MISYS 1.25 mg/dL Comment: New IDMS-traceable calibration beginning 12/04/07 GFR Estimate >90 >60 mL/min/1.7m2 MISYS GFR Estimate If Black >90 >60 mL/min/1.7m2 M ISYS Calcium 9.0 8.5 - 10.4 mg/dL MISYS Anion Gap 5 (L) 6 - 17 mmol/L MISYS Specimen (Source) Anatomical Collection Method Collection Time Re ceived Time Location / / Volume Laterality 06/28/2010 5:20 AM 0 V BELT BUILDER Naun Thompson MD LAB - BLOOD ORDERABLES Performing Organization Address [facility] Phon e Number MISYS Heparin 10a Level (06/28/2010 5:20 AM V BELT BUILDER) P athologist Signature Heparin 10A 0.38 IU/mL MISYS Level Comment: Therapeutic Range: ?? UFH: ?? 0.15-0.35 IU/mL for low ?intensity dosing ?0.30-0.70 IU/mL for high ?intensity dosing ?? LMWH: ??1.00-2.00 IU/mL if 4-6 h ?post daily dosing ?0.60-1.00 IU/mL if 4-6h ?post twice a day dosin g Specimen (Source) Anatomical Collection Method Collection Time Re ceived Time Location / / Volume Laterality 06/28/2010 5:20 AM 0 V BELT BUILDER Naun Thompson MD LAB - BLOOD ORDERABLES Performing Organization Address City/State/[facility] Phon e Number MISYS (ABNORMAL) Troponin I (06/28/2010 5:20 AM V BELT BUILDER) Analysis Performed At Patho logist Time Signature Troponin I ES 27.000 0.000 - MISYS (HH) 0.034 ug/L Comment: Results confirmed by repeat test Critical Value called to and read back by [facility] @ [id number] ON [id number] BY [facility] Specimen Anatomical Collection Method Collection Time Receive d Time (Source) Location / / Volume Laterality 06/28/2010 5:20 AM 0 6:00 V BELT BUILDER AM V BELT BUILDER Rohit Maya MD LAB - BLOOD ORDERABLES Performing Organization Address City/State/ZIP Code Phon e Number MISYS (ABNORMAL) INR AND PTT PANEL (06/28/2010 5:20 AM V BELT BUILDER) P athologist Signature INR 0.98 0.86 - 1.14 MISYS PTT 73 (H) 22 - 37 sec MISYS Specimen Anatomical Collection Method Collection Time Receive d Time (Source) Location / / Volume Laterality 06/28/2010 5:20 AM 0 6:00 V BELT BUILDER AM V BELT BUILDER Rohit Maya MD LAB - BLOOD ORDERABLES Performing Organization Address City/State/ZIP Code Phon e Number MISYS Lipid panel (06/28/2010 5:20 AM V BELT BUILDER) P athologist Signature Cholesterol 179 0 - 200 MISYS mg/dL Comment: LDL Cholesterol is the primary guide to therapy. The NCEP recommends further evaluation of: patients with cholesterol <200 mg/dL if additional risk factors are present, cholesterol >240 mg/dL, triglycerides >150 mg/dL, or HDL <40 mg/dL. Triglycerides 101 0 - 150 mg/dL MISYS HDL Cholesterol 62 40 - 110 mg/dL MISYS LDL Cholesterol Calculated 97 0 - 129 mg/dL MISYS Comment: LDL Cholesterol is the primary guide to therapy: LDL-cholesterol goal in high risk patients is <100 mg/dL and in very high risk patients is <70 mg/dL. VLDL-Cholesterol 20 0 - 30 mg/dL MISYS Cholesterol/HDL Ratio 2.9 0.0 - 5.0 MISYS Specimen Anatomical Collection Method Collection Time Receive d Time (Source) Location / / Volume Laterality 06/28/2010 5:20 AM 0 8:34 V BELT BUILDER AM V BELT BUILDER Naun Thompson MD LAB - BLOOD ORDERABLES Performing Organization Address City/State/ZIP Code Phon e Number MISYS documented in this encounter Visit Diagnoses Not on filedocumented in this encounter
--- OUTSIDE RECORDS SUMMARY | 2022-04-05 08:03 | XMS_ITS | Encounter Summary ---
:1940 Author Organization [place] Address [address] [place] [address] Care Team Providers Name Role Phone Zen Rousseau MD Unavailable Zen Rousseau MD Primary Care Provider Encounter Details Date Type Department Care Team Description 08/01/2012 Results Only [facility] Ip, Fatoumata an Chon Castro MD Hospital Results [address] [place] [address] (Wo rk) Social History Tobacco Use Types Packs/Day Years Used Date Never Assessed Sex Assigned at Date Recorded Not on file documented as of this encounter Plan of Treatment Not on filedocumented as of this encounter Procedures Procedure Name Priority Date/Time Associated Diagnosis Comme nts NM MPI TREADMILL 08/01/2012 3:48 PM Resul ts for this TELECOMMUNICATOR SUPERVISOR procedure are i n the results section. documented in this encounter Results NM Mpi multi rest stress (08/01/2012 3:48 PM TELECOMMUNICATOR SUPERVISOR) Anatomical Region Laterality Modality Chest Other Specimen (Source) Anatomical Collection Method Collection Time Re ceived Time Location / / Volume Laterality 08/01/2012 3:48 PM TELECOMMUNICATOR SUPERVISOR Narrative 08/04/2012 8:29 AM TELECOMMUNICATOR SUPERVISOR GATED MYOCARDIAL PERFUSION SCINTIGRAPHY WITH LEXISCAN Done on 08/01/2012 3:48 PM. DONALDO VALERA ESis a72 yearsyear old MaleDOB is 1940. 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 I ndication for pharmacologic stress testing was chest pain. IMPRESSIONS: I ?Lexiscan Test 1. ??Lexiscan infusion dictated under se parate cover. 2. ??ECG report done under separate cove r. II ?Myocardial Perfusion Scintigraph y 1. ??Myocardial perfusion using single i sotope technique demonstrated Small area of mild basal lateral ischemi a.. 2. ??Gating demonstrated normal wall mot ion. 3. ??The ejection fraction was 61%. 4. ??(Compared to the previous study of 2010, the study shows a small reversible lateral defect instead of the fixed defect). RESTING TOMOGRAPHY: ??Following the inje ction of 10.5 mCi of technetium-99m sestamibi intravenously, gamma camera imaging was performed using 180* SPECT technique. INTRAVENOUS LEXISCAN MONITORING PERIOD: Done under separate cover. Lexiscan was administered at 0.08 mg/ml Rapid Bolus Injection, for 10 seconds, 0.4 mg/5ml intravenously. 32 Tc 99m sestamibi was injected intravenously 10-20 seconds after Lexisc an and 5ml saline flush. ECG report done under separate cover. Gamma camera imaging was performed later using 180* SPECT technique. TOMOGRAPHIC RESULTS: ??On the stress fili ges, mild, reduction noted in the basal lateral portion of the left ve ntricle. On the rest images, normal perfusion. Ga viktoria images demonstrated Normal wall motion. The ejection fractio n was 61%. LUIZ COOLEY MD Procedure Note Luiz Cooley MD - 08/04/2012For matting of this note might be different from the original. GATED MYOCARDIAL PERFUSION SCINTIGRAPHY WITH LEXISCAN Done on 08/01/2012 3:48 PM. DONALDO VALERA ESis a72 yearsyear old MaleDOB is 1940. INDICATION: Assessment of myocardial per fusion with a history ofinferior wall myocardial infarction. I ndication for pharmacologic stress testing was chest pain. IMPRESSIONS: I Lexiscan Test 1. Lexiscan infusion dictated under sepa rate cover. 2. ECG report done under separate cover. II Myocardial Perfusion Scintigraphy 1. Myocardial perfusion using single iso vaishali technique demonstrated Small area of mild basal lateral ischemi a.. 2. Gating demonstrated normal wall motio n. 3. The ejection fraction was 61%. 4. (Compared to the previous study of 24 06, the study shows a small reversible lateral defect instead of the fixed defect). RESTING TOMOGRAPHY: Following the inject ion of 10.5 mCi of technetium-99m sestamibi intravenously, gamma camera imaging was performed using 180* SPECT technique. INTRAVENOUS LEXISCAN MONITORING PERIOD: Done under separate cover. Lexiscan was administered at 0.08 mg/ml Rapid Bolus Injection, for 10 seconds, 0.4 mg/5ml intravenously. 32 Tc 99m sestamibi was injected intravenously 10-20 seconds after Lexisc an and 5ml saline flush. ECG report done under separate cover. Gamma camera imaging was performed later using 180* SPECT technique. TOMOGRAPHIC RESULTS: On the stress image s, mild, reduction noted in the basal lateral portion of the left ve ntricle. On the rest images, normal perfusion. Ga viktoria images demonstrated Normal wall motion. The ejection fractio n was 61%. LUIZ COOLEY MD Craig Godfrey MD IMG NM ORDERABLES documented in this encounter Visit Diagnoses Not on filedocumented in this encounter Care Teams Head Shipper Relationship Specialty Start Date End Date Zen Rousseau MD PCP - General [facility] Practice 08/01/12 08/09/15 [facility] [address] [place] [address], [place] [phone] Zen Rousseau MD MD [facility] Practice 07/31/12 [facility] [address] [place] [id number] documented as of this encounter
--- OUTSIDE RECORDS SUMMARY | 2022-04-05 08:03 | XMS_ITS | Encounter Summary ---
:1940 Author Organization [place] Address [facility] [place] [address] Care Team Providers Name Role Phone Unavailable Primary Care Provider Unavailable Encounter Details Date Type Department Care Team Description 06/27/2010 [facility] [address] [place], [place] [address] (Wo rk) Social History Tobacco Use Types Packs/Day Years Used Date Never Assessed Sex Assigned at Date Recorded Not on file documented as of this encounter Plan of Treatment Not on filedocumented as of this encounter Procedures Procedure Name Priority Date/Time Associated Diagnosis Comme nts XR CHEST 2 VIEWS Routine 06/27/2010 9:03 AM Resul ts for this SHEET MANUFACTURING SUPERVISOR procedure are i n the results section. documented in this encounter Results X-ray Chest 2 vws* (06/27/2010 9:03 AM SHEET MANUFACTURING SUPERVISOR) Specimen (Source) Anatomical Collection Method Collection Time Re ceived Time Location / / Volume Laterality 06/27/2010 9:03 AM SHEET MANUFACTURING SUPERVISOR Impressions RADIOLOGY RESULTS - 06/27/2010 10:25 AM SHEET MANUFACTURING SUPERVISOR CHEST TWO VIEW* Jun 27, 2010 9:03:00 AM HISTORY: ??Chest Pain FINDINGS: Negative. Ta Mueller MD IMG DIAGNOSTIC IMAGING ORDER MYNOR Performing Organization Address City/State/ZIP Code Phon e Number RADIOLOGY RESULTS documented in this encounter Visit Diagnoses Not on filedocumented in this encounter
--- OUTSIDE RECORDS SUMMARY | 2022-04-05 08:03 | XMS_ITS | Encounter Summary ---
:1940 Author Organization [place] Address [facility] [place] [address] Care Team Providers Name Role Phone Unavailable Primary Care Provider Unavailable Encounter Details Date Type Department Care Team Description 06/28/2010 Historic Results INTERFACED REPORT InterfaceIno MD Social History Tobacco Use Types Packs/Day Years Used Date Never Assessed Sex Assigned at Date Recorded Not on file documented as of this encounter Plan of Treatment Not on filedocumented as of this encounter Procedures Procedure Name Priority Date/Time Associated Diagnosis Comme nts EKG 12 LEAD Routine 06/28/2010 5:03 AM Results f or this HIGH SCHOOL COACH procedure are i n the results section . documented in this encounter Results EKG 12 LEAD (06/28/2010 5:03 AM HIGH SCHOOL COACH) Component Value Ref Range Test Analysis Performed Pathologis t Method Time At Signature Ventricular Rate 58 BPM RADIOLOGY RESULTS Atrial Rate [address] Interval 154 ms RADIOLOGY RESULTS QRS Duration 90 ms RADIOLOGY RESULTS QT 418 ms RADIOLOGY RESULTS QTc 410 ms RADIOLOGY RESULTS P [place] 61 degrees RADIOLOGY RESULTS R AXIS 2 degrees RADIOLOGY RESULTS T [place] 23 degrees RADIOLOGY RESULTS Interpretation Sinus bradycardia with Fusion complexes RADIOLOGY ECG Otherwise normal ECG RESULTS When compared with ECG of 27-JUN-2010 18:49, (unconfirmed) Fusion complexes are now Present Vent. rate has decreased BY ??30 BPM Unconfirmed report - interpretation of this ECG is comput er generated - see medical record for final interpretation Specimen Anatomical Collection Method Collection Time Receive d Time (Source) Location / / Volume Laterality 06/28/2010 5:03 AM 0 1:56 HIGH SCHOOL COACH PM HIGH SCHOOL COACH Transcripton Interface ECG ORDERABLES Performing Organization Address City/State/ZIP Code Phon e Number RADIOLOGY RESULTS documented in this encounter Visit Diagnoses Not on filedocumented in this encounter
--- OUTSIDE RECORDS SUMMARY | 2022-04-05 08:03 | XMS_ITS | Encounter Summary ---
:1940 Author Organization [place] Address [address] [facility] [place] [address] Care Team Providers Name Role Phone Zen Rousseau MD Unavailable Zen Rousseau MD Primary Care Provider Mckenzie Mayorga MD Primary Care Provider Luis Alberto Hernandez MD Primary Care Provider Encounter Details Date Type Department Care Team Description 11/03/2010 Historic Results [facility] Heart Unknown, [address] [place] [address] Social History Tobacco Use Types Packs/Day Years Used Date Never Assessed Sex Assigned at Date Recorded Not on file documented as of this encounter Plan of Treatment Not on filedocumented as of this encounter Procedures Procedure Name Priority Date/Time Associated Diagnosis Comme nts NUCLEAR CARDIAC - HIM 11/03/2010 12:00 AM CDT SCAN - ARCHIVE documented in this encounter Results NUCLEAR CARDIAC - HIM SCAN - ARCHIVE (11/03/2010 12:00 AM CDT) Specimen (Source) Anatomical Location Collection Method / Collectio n Time Received Time / Laterality Volume 11/03/2010 Narrative This result has an attachment that is no t available. Provider Scan IMG NM ORDERABLES documented in this encounter Visit Diagnoses Not on filedocumented in this encounter Care Teams Oyster Sorter Relationship Specialty Start Date End Date Zen Rousseau MD PCP - General Family Practice 08/01/12 08/09/[address] [place] [address] Mckenzie Mayorga MD PCP - General 08/10/15 10/09/[address] [address] Luis Alberto Hernandez MD PCP - General Family Practice 10/10/15 07/25/16 Zen Rousseau MD MD Family Practice 07/31/[address] [address] documented as of this encounter
--- OUTSIDE RECORDS SUMMARY | 2022-04-05 08:03 | XMS_ITS | Encounter Summary ---
:1940 Author Organization [place] Address [address] [facility] [place] [address] Care Team Providers Name Role Phone Unavailable Primary Care Provider Unavailable Encounter Details Date Type Department Care Team Description 06/27/[address] [facility] Luis Alberto Dunbar MD Hospital Results [address] [facility] [address] [place], [place] [address] (Wo rk) Social History Tobacco Use Types Packs/Day Years Used Date Never Assessed Sex Assigned at Date Recorded Not on file documented as of this encounter Progress Notes Luis Alberto Dunbar - 08/16/2010 1:58 PM [facility] FINAL CARDIOLOGY CONSULTATION INDICATION: Non-Q wave myocardial infarction. HISTORY OF PRESENT ILLNESS: Mr. Donaldo Mccann is a 70-year-old man without previous history of cardiac disease. He has had a long history of exertional symptoms. He describes a burning in his chest that would come on with exertion and leave with rest. This morning, he developed some aching substernal chest discomfort that was worse than previous symptoms. He presented to the emergency room at [facility]. He was started on nitroglycerin, and his pain resolved. His ECG was unremarkable, and his first troponin was negative. He was comfortable here [facility] through the morning. Later this morning, a second troponin returned positive (21.2). Hehad just a short twinge of chest discomfort this afternoon, but has otherwise remained comfortable. Currently he is lying in bed and asymptomatic. Followup EKG performed at 2:00 p.m. also showed only sinus tachycardia at a rate of 120 beats a minute, but no acute ischemic changes. An isolated diagnostic Q wave in lead III. SOCIAL HISTORY: He is , accompanied by his and daughter. FAMILY HISTORY: Strongly positive for premature coronary artery disease. PAST MEDICAL HISTORY: 1.Quit smoking a few years ago. 2.Hypertension. 3.Obesity. 4.Hyperlipidemia. 5.More distant history of colectomy, cholecystectomy, appendectomy. 6.History of melanoma with skin surgery greater than 10 years ago. PHYSICAL EXAMINATION: GENERAL: Pleasant bright gentleman in no current distress. VITAL SIGNS: His blood pressure has ranged between 130 and 160/80s. His heart rate has ranged from 88 to 120. Respiratory rate is 18. He is afebrile. HEENT: Sclerae anicteric. Oropharynx moist. NEUROLOGIC: Awake and alert. NECK: No JVD. HEART: Regular. LUNGS: Clear. ABDOMEN: Obese. Positive bowel sounds. Soft, nontender. EXTREMITIES: Warm. No edema. SKIN: No ischemic ulcerations. ECG: See above. OTHER LABS: Troponin initially negative; second study elevated at 21. White count 13.1, hemoglobin 15.5, platelet count 228,000. D-dimer 0.3. Sodium 139, potassium 4.0, glucose 148, BUN 16, creatinine0.7. ASSESSMENT/RECOMMENDATIONS: A gentleman with onset of [id number] coronary artery disease, jodi non-Q wave myocardial infarction. Currently he is stable and asymptomatic. We will give him aspirin and continue his heparin. I will also add a IIb/IIIa receptor annemarie (Integrilin). He is just getting some beta annemarie now. We will proceed with coronary angiography and possible percutaneous revascularization tomorrow. I did review the risk, rationale and options in detail of that procedure with the patient. Further recommendations pending findings on the study. Ultimately, his risk factor modifications will include aspirin, statins, beta blockers, likely SHAD inhibitors, weight loss, exercise, as well as continued tobacco abstinence. We appreciate being involved in Mr. Mccann' care. Electronically signed on 08/16/2010 13:57 by LUIS ALBERTO DUNBAR MD MT: [id number] Name: ODNALDO MCCANN Account: [id number] : 1940 Consult Date: 06/27/2010 Document: [id number] cc: Zen Rousseau MD RANGER documented in this encounter Plan of Treatment Not on filedocumented as of this encounter Visit Diagnoses Not on filedocumented in this encounter
--- OUTSIDE RECORDS SUMMARY | 2022-04-05 08:03 | XMS_ITS | Encounter Summary ---
:1940 Author Organization [place] Address [facility] [place] [address] Care Team Providers Name Role Phone Unavailable Primary Care Provider Unavailable Encounter Details Date Type Department Care Team Description 06/27/2010 Historic Results INTERFACED REPORT InterfaceIon MD Social History Tobacco Use Types Packs/Day Years Used Date Never Assessed Sex Assigned at Date Recorded Not on file documented as of this encounter Plan of Treatment Not on filedocumented as of this encounter Procedures Procedure Name Priority Date/Time Associated Diagnosis Comme nts EKG 12 LEAD Routine 06/27/2010 6:49 PM Results f or this DRY HOUSE OPERATOR procedure are i n the results section . documented in this encounter Results EKG 12 LEAD (06/27/2010 6:49 PM DRY HOUSE OPERATOR) Component Value Ref Range Test Analysis Performed Pathologis t Method Time At Signature Ventricular Rate 88 BPM RADIOLOGY RESULTS Atrial Rate 88 BPM RADIOLOGY RESULTS MT Interval 162 ms RADIOLOGY RESULTS QRS Duration 88 ms RADIOLOGY RESULTS QT 346 ms RADIOLOGY RESULTS QTc 418 ms RADIOLOGY RESULTS P [place] 66 degrees RADIOLOGY RESULTS R AXIS 3 degrees RADIOLOGY RESULTS T [place] 46 degrees RADIOLOGY RESULTS Interpretation Sinus rhythm RADIOLOGY ECG Normal ECG RESULTS When compared with ECG of 27-JUN-2010 14:01, (unconfirmed) ST no longer depressed in Anterior leads Unconfirmed report - interpretation of this ECG is compute r generated - see medical record for final interpretation Specimen Anatomical Collection Method Collection Time Receive d Time (Source) Location / / Volume Laterality 06/27/2010 6:49 PM 0 1:56 DRY HOUSE OPERATOR PM DRY HOUSE OPERATOR Transcripton Interface ECG ORDERABLES Performing Organization Address City/State/ZIP Code Phon e Number RADIOLOGY RESULTS documented in this encounter Visit Diagnoses Not on filedocumented in this encounter
--- OUTSIDE RECORDS SUMMARY | 2022-04-05 08:03 | XMS_ITS | Encounter Summary ---
:1940 Author Organization [place] Address [address] [facility] [place] [address] Care Team Providers Name Role Phone Elizabeth Rousseau MD Unavailable Elizabeth Rousseau MD Primary Care Provider Mckenzie Mayorga MD Primary Care Provider Luis Alberto Hernandez MD Primary Care Provider Mckenzie Mayorga MD Primary Care Provider Senthil Mckeon MD Primary Care Provider [phone] Ta Trimble MD Unavailable [phone] Ronnie Myers Primary Care Provider Mali Dowd APRN, CNP Unavailable Encounter Details Date Type Department Care Team Description 08/13/2013 Office Visit-[facility] Craig Godfrey, [facility] [place] [address] [facility] [address] [facility] [address] [place] [address] [place] [address] (Wo rk) Social History Tobacco Use Types Packs/Day Years Used Date Never Assessed Sex Assigned at Date Recorded Not on file documented as of this encounter Progress Notes Craig Godfrey MD - 08/18/2013 2:07 PM CST Progress Note Created by: Craig Godfrey M.D. DATE: 08/13/2013 DONALDO BAUTISTA DATE OF : 1940 AGE: [age] years old Referring Physician: ELIZABETH ROUSSEAU Referring Clinic: [facility] CURRENT DIAGNOSES 1. - Shortness of Breath, [...] minutes prior to Niaspan. 5. Nitrocellulose Aerosol, [place], 1 p.o. PRN as Directed 6. Pravachol 80 mg Tablet, 1 p.o. qHS 7. Protonix 40 mg Tablet, Delayed Release (E.C.), 1 p.o. daily CHIEF COMPLAINTS Followup of - Chest Pain-unspecified HISTORY OF PRESENT ILLNESS It is a pleasure for me to see Mr. Bautista. He is here for follow-up of coronary artery disease. I hadthe pleasure of seeing this delightful gentleman last year for follow-up as well. In 2009 he had a non-Q wave myocardial infarction. His angiography and percutaneous revascularization was performed by my former colleague, Dr. Luis Alberto Dunbar. Dr. Dunbar described mild to moderate disease in his coronary vasculature with the exception of a subtotally occluded OM2 and this vessel was percutaneously revascularized. Since then he has had episodes of atypical chest pains and fortunately a stress nuclear study showed normal ejection fraction and the absence of significant ischemia. He returns today telling me that he feels well. He describes occasional episodes of stabbing chest pains. These occur infrequently and last no more than a second. These have not worsened recently. His weight has not gone down. He tells me he has trouble bending down and tying his shoelaces. His body mass index is 36. Blood pressure is 110/66. He complains of some cool peripheries. His hands and feet certainly do appear pretty well perfused. PAST HISTORY Past Medical Illnesses: hypercholesterolemia, dyspnea, [...] Results: no ischemia, 02/03 no ischemia but 1/3 septum not seen, mild con LVH Left [...] REVIEW OF SYSTEMS GENERAL negative for energy, fatigue INTEGUMENTARY denies any change in hair or nails, rashes, or skin lesions. EYES wears eye glasses/contact lenses EARS, NOSE, THROAT, MOUTH runny nose in am's RESPIRATORY productive cough, phlegm, dyspnea with exertion, wheezing CARDIOVASCULAR chest pain, sharp pain that lasts approx 1 second, negative for palpitations, negative for dizziness, negative [...] allergies PHYSICAL EXAMINATION VITAL SIGNS: Blood Pressure: 110/66Sitting, Left arm, large cuff Pulse- 56.00/min. Weight- 220.60 lbs. Height- 66 BMI Measurement: 35 CONSTITUTIONAL [...] time, person and place. MEDICATIONS UPDATED/STARTED TODAY: IMPRESSIONS/PLAN IMPRESSION: 1. Coronary artery disease. I think this is stable and we should continue with medical management. 2. Atypical chest pains. Stabbing chest pains lasting one second and not related to exertion or relieved by rest and is almost certainly not cardiac in origin. I reassured him as such. 3. Obesity. Weightmanagement advice was provided. 4. Hyperlipidemia. He is on high dose statin with pravastatin at 80 mg once daily. 5. Cool peripheries. I think it is more than likely that has cold peripheries due to the very cold weather recently. In addition, I do notice some loss of subcutaneous fat with aging. I think these is likely to be the main reasons. However, he was told it may be due to one of the medications that he is on. I do see that he is taking metoprolol and this may be the medication that his primary physician is thinking about. With the blood pressure of 110/60 and stable coronary artery disease I had advised him take a drug holiday. He will be off metoprolol for a week and then he will call us to see if there is any improvement in his symptoms. I do think he is stable right now. I will see him again in a year's time for further follow-up. TODAYS ORDERS 1. Return Visit 1 year Craig Godfrey M.D. documented in this encounter Plan of Treatment Not on filedocumented as of this encounter Visit Diagnoses Not on filedocumented in this encounter Care Teams Senior Java Software Developer Relationship Specialty Start Date End Date Elizabeth Rousseau MD PCP - General Family Practice 08/01/12 08/09/15 [facility] [address] [place] [phone] Mckenzie Mayorga MD PCP - General 08/10/15 10/09/15 [facility] [address], [place] [address] Luis Alberto Hernandez MD PCP - General Family Practice 10/10/15 07/25/16 Mckenzie Mayorga MD PCP - General 07/26/16 12/02/18 [facility] [address], [place] [id number] Senthil Mckeon PCP - General 12/03/18 Ronnie Myers PCP - General Family Medicine 09/11/21 [facility] [address], [place] [id number] Elizabeth Rousseau MD MD Family Practice 07/31/12 [facility] [address] [place] [id number] Ta Trimble Assigned Heart and 05/27/20 2 [facility] [address] [place], [place] [id number] Mali Dowd, RAILROAD BRAKE OPERATOR MAINTAINER [employer] WATERWORKS Assigned Heart and 10/08/21 [address] Vascular Provider [place] [id number] documented as of this encounter
--- OUTSIDE RECORDS SUMMARY | 2022-04-05 08:03 | XMS_ITS | Encounter Summary ---
:1940 Author Organization [place] Address [facility] [place] [address] Care Team Providers Name Role Phone Unavailable Primary Care Provider Unavailable Encounter Details Date Type Department Care Team Description 06/29/2010 Historic Results INTERFACED REPORT Interface, Ion cramer MD Social History Tobacco Use Types Packs/Day Years Used Date Never Assessed Sex Assigned at Date Recorded Not on file documented as of this encounter Plan of Treatment Not on filedocumented as of this encounter Procedures Procedure Name Priority Date/Time Associated Diagnosis Comme nts EKG 12 LEAD Routine 06/29/2010 6:03 AM Results f or this AGRICULTURAL EXTENSION EDUCATOR procedure are i n the results section . documented in this encounter Results EKG 12 LEAD (06/29/2010 6:03 AM AGRICULTURAL EXTENSION EDUCATOR) Component Value Ref Range Test Analysis Performed Pathologis t Method Time At Signature Ventricular Rate 54 BPM RADIOLOGY RESULTS Atrial Rate 54 BPM RADIOLOGY RESULTS SD Interval 150 ms RADIOLOGY RESULTS QRS Duration 92 ms RADIOLOGY RESULTS QT 430 ms RADIOLOGY RESULTS QTc 407 ms RADIOLOGY RESULTS P [place] 66 degrees RADIOLOGY RESULTS R AXIS 12 degrees RADIOLOGY RESULTS T [place] 32 degrees RADIOLOGY RESULTS Interpretation Sinus bradycardia RADIOLO GY ECG Otherwise normal ECG RESULTS Unconfirmed report - interpretation of this ECG is compute r generated - see medical record for final interpretation Specimen Anatomical Collection Method Collection Time Receive d Time (Source) Location / / Volume Laterality 06/29/2010 6:03 AM 0 9:27 AGRICULTURAL EXTENSION EDUCATOR AM AGRICULTURAL EXTENSION EDUCATOR Transcripton Interface ECG ORDERABLES Performing Organization Address City/State/ZIP Code Phon e Number RADIOLOGY RESULTS documented in this encounter Visit Diagnoses Not on filedocumented in this encounter
--- OUTSIDE RECORDS SUMMARY | 2022-04-05 08:03 | XMS_ITS | Encounter Summary ---
:1940 Author Organization [place] Address [facility] [place] [address] Care Team Providers Name Role Phone Zne Rousseau MD Unavailable Zen Rousseau MD Primary Care Provider Mckenzie Mayorga MD Primary Care Provider Luis Alberto Hernandez MD Primary Care Provider Mckenzie Mayorga MD Primary Care Provider Senthil Mckeon MD Primary Care Provider Ta Trimble MD Unavailable [phone] Ronnie Myers Primary Care Provider Mali Dowd APRN, CNP Unavailable Encounter Details Date Type Department Care Team Description 08/07/2010 Office Visit-[facility] Heart Luis Alberto Dunbar MD [facility] [place] [address] [address] [address] [place] [address] [place] [address] [phone] Social History Tobacco Use Types Packs/Day Years Used Date Never Assessed Sex Assigned at Date Recorded Not on file documented as of this encounter Progress Notes Luis Alberto Dunbar MD - 08/07/2010 1:54 PM CST Progress Note Created by: [place] [id number] DATE: 08/07/2010 DONALDO BAUTISTA DATE OF : 1940 AGE: [age] years old Referring Physician: GERONIMO BUSH Referring Clinic: [facility] CURRENT DIAGNOSES 1. IA-S/P Inferior, 412 2. - Hypertension, 401.1 3. Obesity-(<LT>100'), 278.00 4. - Hyperlipidemia, 272.4 5. - Shortness of Breath, 786.05 6. - Chest Pain-unspecified, 786.50 7. CAD, 414.00 ALLERGIES Penicillin, Itching and rash MEDICATIONS (prior to changes made today) 1. Advair Diskus 500-50 mcg/Dose Disk with Device 2. Pravachol 80 mg Tablet, 1 p.o. qHS 3. Nitrocellulose Aerosol, [place], 1 p.o. PRN as Directed 4. Aspirin 81 mg Tablet, 1 p.o. daily 5. Plavix 75 mg Tablet, 1 p.o. daily 6. Metoprolol Tartrate 100 mg Tablet, 1 p.o. twice daily 7. Lisinopril 20 mg Tablet, 1 p.o. twice daily 8. Protonix 40 mg Tablet, Delayed Release (E.C.), 1 p.o. daily CHIEF COMPLAINTS HISTORY OF PRESENT ILLNESS I appreciated seeing Mr. Bautista today in the [facility] for the [facility]. I saw him at the time of an acute inferolateral myocardial infarction andperformed angioplasty and stenting to an obtuse marginal branch of the circumflex late last year. I am pleased to see that he has done well without recurrent angina. He also states that his breathing has been improved since discharge as well. He is back to work and is asymptomatic from a cardiovascular perspective. He has been bothered by some itchiness of his arms. He has also noted some relative coolness of his hands and feet. On exam, he looks comfortable. His blood pressure is 130/80 heart rate 80 respiration 18. He is afebrile. HEENT nonicteric. Oropharynx is moist. Neuro alert and oriented. Neck no JVD. No audible carotid bruits. Heart regular. Lungs clear. Abdomen soft, obese. Extremities warm, intact pulses. Skin no ischemic ulcerations or his hands and feet with normal pigment tone, palpable pulses. PAST HISTORY Past Medical Illnesses: hypercholesterolemia, dyspnea, Hx ETOH, hypertension, obesity, used to smoke but quit, Hx melanoma Past Cardiac Illnesses: chest pain, S/P myocardial infarction-inferior Surgeries/Procedures - General: appendectomy, cholecystectomy, colectomy Cardiac/Vasc Procedures-Invasive: L cath -INGRID stent to 2nd OM of circ 06/14 Cardiology Procedures-NonInvasive: stress echo , stress echo February 2002, treadmill cardiolite February 2002, echo 03/10 Cardiac Cath Results: 06/14 LAD mild-mod, circ [...] nuc 02/03, EF 50-55% by cath -Jun 2010 Nuclear Results: 02/03 normal, no ischemia FAMILY HISTORY: Father - Age 71, unknown; Mother - alive and well; Brother 1 - Age 58, of cancer; CARDIAC RISK FACTORS Tobacco Abuse: negative; Family History of Heart Disease: unknown; Hyperlipidemia: positive; Hypertension: positive; Diabetes Mellitus: negative; Prior History of Heart Disease: negative; Obesity:negative; Sedentary Life Style:positive; Age:positive SOCIAL HISTORY Alcohol Use - denies drinking; Smoking - used to smoke but quit and 1984; Diet - regular diet and caffeine use-3-4 per day; Lifestyle - and drives car; Exercise - exercises regularly, walking and 30 mins; Seat Belt Use - always; 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 RESPIRATORY denies dyspnea, snoring, cough, wheezing or hemoptysis. CARDIOVASCULAR negative for palpitations, chest pain, orthopnea, PND, peripheral edema, syncope or claudication. ABDOMINAL denies change in bowel habits, dyspepsia, ulcer disease, hematochezia or melena. GENITOURINARY-MALE nocturia x 2 MUSCULOSKELETAL denies any history of arthritic symptoms or back problems. NEUROLOGICAL hands and feet cold all the time, negative for headaches PSYCHIATRIC denies any history of depression, substance abuse or change in cognitive functions. ENDOCRINE intolerance to cold, hand and feet always cold HEMATOLOGICAL/IMMUNOLOGIC denies any food allergies, seasonal allergies, bleeding disorders. IMPRESSIONS/PLAN I am pleased to see that he has done well since his inferolateral IA. I have set him up for a stresstest in three months. 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 He is also scheduled to see Dr. Rousseau tomorrow and have fasting lipids done at that time. During his hospitalization he was switched from Pravachol 80 mg to simvastatin 80 mg. He recently refilled his Pravachol prescription and has a three-month supply. It is my recollection that his cholesterol was not at goal when he came into the hospital last year and that this is why he was switched to simvastatin. I think it would be okay if he remained on his Pravachol for three months. However, I would want to recheck a fasting lipid in approximately 80 days. If his LDL cholesterol is not in the range of 70-80mg/dl, I would switch him from Pravachol to 80 mg of simvastatin versus 40 mg daily of Crestor to achieve lower LDL levels. Otherwise, I have encouraged him to remain on his other medications including lisinopril, Lopressor, aspirin and Plavix. Finally, I have made arrangements to see him in follow-up in a year. I appreciate being involved in his care. TODAYS ORDERS 1. Treadmill Nuclear Study 3 months,MD able to convert to pharm stress if pt unable to exercise 2. Return Visit 1 year Luis Alberto Dunbar MD documented in this encounter Plan of Treatment Not on filedocumented as of this encounter Visit Diagnoses Not on filedocumented in this encounter Care Teams Field Superintendent Relationship Specialty Start Date End Date Zen Rousseau MD PCP - General Family Practice 08/01/12 08/09/[address] [id number] Mckenzie Mayorga MD PCP - General 08/10/15 10/09/[address] [address] Luis Alberto Hernandez MD PCP - General Family Practice 10/10/15 07/25/16 Mckenzie Mayorga MD PCP - General 07/26/16 12/02/[address] [address] Senthil Mckeon, PCP - General 12/03/18 Ronnie Myers PCP - General Family Medicine 09/11/21 [facility] [address] [place] [address] Zen Rousseau MD MD Family Practice 07/31/[address] [address] Ta Trimble Assigned Heart and 05/27/20 2 MD [facility] [address] [place] [address] Mali Dowd APRN METAL LATHER Assigned Heart and 10/08/21 [address] [place] [address] documented as of this encounter
--- OUTSIDE RECORDS SUMMARY | 2022-04-05 08:03 | XMS_ITS | Encounter Summary ---
:1940 Author Organization [place] Address [address] [facility] [place] [address] Care Team Providers Name Role Phone Zen Rousseau MD Unavailable Zen Rousseau MD Primary Care Provider Mckenzie Mayorga MD Primary Care Provider Luis Alberto Hernandez MD Primary Care Provider Encounter Details Date Type Department Care Team Description 08/01/2012 Historic Results [facility] Heart Unknown, [address] [place] [id number] Social History Tobacco Use Types Packs/Day Years Used Date Never Assessed Sex Assigned at Date Recorded Not on file documented as of this encounter Plan of Treatment Not on filedocumented as of this encounter Procedures Procedure Name Priority Date/Time Associated Diagnosis Comme nts NUCLEAR CARDIAC - HIM 08/01/2012 12:00 AM PHOTOGRAPH PRINTER SCAN - ARCHIVE documented in this encounter Results NUCLEAR CARDIAC - HIM SCAN - ARCHIVE (08/01/2012 12:00 AM PHOTOGRAPH PRINTER) Specimen (Source) Anatomical Location Collection Method / Collectio n Time Received Time / Laterality Volume 08/01/2012 Narrative This result has an attachment that is no t available. Provider Scan IMG NM ORDERABLES documented in this encounter Visit Diagnoses Not on filedocumented in this encounter Care Teams On Site Manager Relationship Specialty Start Date End Date Zen Rousseau MD PCP - General Family Practice 08/01/12 08/09/[address] [place] [address] Mckenzie Mayorga MD PCP - General 08/10/15 10/09/[address] [address] Luis Alberto Hernandez MD PCP - General Family Practice 10/10/15 07/25/16 Zen Rousseau MD MD Family Practice 07/31/[address] [phone] documented as of this encounter
--- OUTSIDE RECORDS SUMMARY | 2022-04-05 08:03 | XMS_ITS | Encounter Summary ---
:1940 Author Organization [place] Address [facility] [place] [address] Care Team Providers Name Role Phone Unavailable Primary Care Provider Unavailable Encounter Details Date Type Department Care Team Description 02/26/2011 Results Only INTERFACED REPORT Barby Rousseau MD [place] [phone] (Wo rk) Social History Tobacco Use Types Packs/Day Years Used Date Never Assessed Sex Assigned at Date Recorded Not on file documented as of this encounter Plan of Treatment Not on filedocumented as of this encounter Procedures Procedure Name Priority Date/Time Associated Diagnosis Comme nts COLONOSCOPY Routine 02/26/2011 10:12 AM Results for this CDT procedure are i n the results section . documented in this encounter Results COLONOSCOPY (02/26/2011 10:12 AM CDT) [facility] Method Time Signature COLONOSCOPY [facility] RAD IOLOGY RESULTS Patient Name: Sreedhar Bautista ?Procedure Date: 02/26/2011 10:12:37 AM ? Date of : 1940 ?Admit Type: Outpatient ? Age: 71 ? Gender: Male ? Attending MD: Abhijit Lan MD ? Procedure: ?Colonoscopy Indications: ?Personal history of colonic polyps Providers: ?Ahbijit Elias MD Referring MD: ? Zen Rousseau MD Medicines: ?Fentanyl 100 micrograms IV, Midazolam 1 mg IV, ?Atropine 0.6 mg IV Complications: ?No immediate complications Procedure: ?Pre-Anesthesia Assessment: ?- Prior to the [...] ?Examination: clear to auscultation. CV Examination: ?normal. ASA Grade Assessment: II - A patient with ?mild systemic disease. After reviewing the risks ?a nd benefits, the patient was deemed in ?satisfactory [...] and ?oxygen saturations were monitored continuously. The ?Colonoscope was introduced through the anus and ?advanced to the terminal ileum. The colonoscopy was ?performed without difficulty. The patient tolerated ?the procedure well. The quality of the bowel ?preparation was good. ? Findings: ? The digital rectal exam was normal. A sessile polyp was found in the ? descending colon. The polyp was 3 mm in s ize. This was biopsied with a ? hot forceps for histology. The rectum, si gmoid colon, splenic flexure, ? transverse colon, hepatic flexure, ascending colon, i leum and ? anastomosis appeared normal. The retroflexed view of the anal verge was ? normal and showed no anal or rectal abnormaliti es. The terminal ileum ? appeared normal. ? Impression: ? - One 3 mm polyp in the descending colon. Tissue ?was removed. This was biopsied. ?- The rectum, sigmoid colon, splenic flexure, ?transverse colon, hepatic flexure, ascending colon, ?terminal ileum and colonic anastomosis are normal. ?- The examined portion of the ileum was normal. Recommendation: ? - Discharge patient to home ( ambulatory). ?- Telephone endoscopist for pathology results in 1 ?week. ?- If polyp is adenomatous repeat colonoscopy in 3 ?years. If polyp is hyperplastic repeat colonoscopy ?in 4 years. ?- Return to primary care physician PRN. ? Philip Elias M.D Abhijit Elias MD Signed Date: 02/26/2011 10:42:56 AM Number of Addenda: 0 I was physically present for the entire viewing portion of t he exam. Note Initiated On: 02/26/2011 10:12:37 AM Scope Withdrawal Time: 0 hours 0 minutes 0 seconds Total Procedure Duration: 0 hours 5 minutes 41 seconds Specimen (Source) Anatomical Collection Method Collection Time Re ceived Time Location / / Volume Laterality 02/26/2011 10:12 AM CDT Zen Rousseau MD PROCEDURES Performing Organization Address City/State/ZIP Code Phon e Number RADIOLOGY RESULTS documented in this encounter Visit Diagnoses Not on filedocumented in this encounter
--- OUTSIDE RECORDS SUMMARY | 2022-04-05 08:03 | XMS_ITS | Encounter Summary ---
:1940 Author Organization [place] Address [address] [facility] [place] [address] Care Team Providers Name Role Phone Zen Rousseau MD Unavailable Zen Rousseau MD Primary Care Provider Mckenzie Mayorga MD Primary Care Provider Luis Alberto Hernandez MD Primary Care Provider Encounter Details Date Type Department Care Team Description 06/28/2010 Historic Results [facility] Heart Unknown, [address] [place] [phone] Social History Tobacco Use Types Packs/Day Years Used Date Never Assessed Sex Assigned at Date Recorded Not on file documented as of this encounter Plan of Treatment Not on filedocumented as of this encounter Procedures Procedure Name Priority Date/Time Associated Diagnosis Comme nts CARDIAC CATH - HIM SCAN 06/28/2010 12:00 AM 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 Provider Scan CV ELECTROPHYSIOLOGY ORDERAB LES documented in this encounter Visit Diagnoses Not on filedocumented in this encounter Care Teams Diagnostic Technician Relationship Specialty Start Date End Date Zen Rousseau MD PCP - General Family Practice 08/01/12 08/09/[address] [place] [address] Mckenzie Mayorga MD PCP - General 08/10/15 10/09/[address] [address] Luis Alberto Hernandez MD PCP - General Family Practice 10/10/15 07/25/16 Zen Rousseau MD MD Family Practice 07/31/[address] [phone] documented as of this encounter
--- OUTSIDE RECORDS SUMMARY | 2022-04-05 08:03 | XMS_ITS | Encounter Summary ---
:1940 Author Organization [place] Address [facility] [place] [address] Care Team Providers Name Role Phone Unavailable [...] Comme nts EKG 12 LEAD Routine 06/27/2010 7:50 AM Results f or this ROLL TUBE SETTER procedure are i n the results section . documented in this encounter Results EKG 12 LEAD (06/27/2010 7:50 AM ROLL TUBE SETTER) Component Value Ref Range Test Analysis Performed Pathologis t Method Time At Signature Ventricular Rate 81 BPM RADIOLOGY RESULTS Atrial Rate 81 BPM RADIOLOGY RESULTS AK Interval 162 ms RADIOLOGY RESULTS QRS Duration 90 ms RADIOLOGY RESULTS QT 356 ms RADIOLOGY RESULTS QTc 413 ms RADIOLOGY RESULTS P Leblanc 58 degrees RADIOLOGY RESULTS R AXIS 11 degrees RADIOLOGY RESULTS T Leblanc 50 degrees RADIOLOGY RESULTS Interpretation Sinus rhythm with marked sinus arrhythmia RADIOLOGY ECG Otherwise normal ECG RESULTS Unconfirmed report - interpretation of this ECG is compute r generated - see medical record for final interpretation Specimen Anatomical Collection Method Collection Time Receive d Time (Source) Location / / Volume Laterality 06/27/2010 7:50 AM 0 2:53 ROLL TUBE SETTER PM ROLL TUBE SETTER Transcripton Interface ECG ORDERABLES Performing Organization Address City/State/ZIP Code Phon e Number RADIOLOGY RESULTS documented in this encounter Visit Diagnoses Not on filedocumented in this encounter
--- OUTSIDE RECORDS SUMMARY | 2022-04-05 08:04 | XMS_ITS | Encounter Summary ---
:1940 Author Organization [place] Address [address] [place] [address] Care Team Providers Name Role Phone Unavailable Primary Care Provider Unavailable Encounter Details Date Type Department Care Team Description 03/18/2006 Historic Results INTERFACED REPORT Rona Powell MD [facility] [address] [facility] [address] [place] [address] Social History Tobacco Use Types Packs/Day Years Used Date Never Assessed Sex Assigned at Date Recorded Not on file documented as of this encounter Plan of Treatment Not on filedocumented as of this encounter Procedures Procedure Name Priority Date/Time Associated Comments Diagnosis TRIGLYCERIDES Routine 03/18/2006 7:08 AM Results for this CDT procedure are i n the results section. INR Routine 03/18/2006 7:08 AM Results f or this CDT procedure are i n the results section. PREALBUMIN Routine 03/18/2006 7:08 AM Results f or this CDT procedure are i n the results section. PHOSPHORUS Routine 03/18/2006 7:08 AM Results f or this CDT procedure are i n the results section. MAGNESIUM Routine 03/18/2006 7:08 AM Results f or this CDT procedure are i n the results section. COMPREHENSIVE Routine 03/18/2006 7:08 AM Results for this METABOLIC PANEL CDT procedure ar e in the results section. documented in this encounter Results (ABNORMAL) Comprehensive metabolic panel (03/18/2006 7:08 AM CDT) Analysis Performed At Patho logist Time Signature Sodium 140 133 - 144 [place] mmol/L Potassium 3.8 3.4 - 5.3 [place] mmol/L Chloride 103 94 - 109 [place] mmol/L Carbon Dioxide 31 20 - 32 [place] mmol/L Glucose 134 (H) 60 - 110 [place] mg/dL Urea Nitrogen 15 7 - 30 [place] mg/dL Creatinine 0.80 0.80 - [facility] 1.50 mg/dL GFR Estimate >90 >60 [place] mL/min/1.7 m2 GFR Estimate If >90 >60 [facility] Black mL/min/1.7 m2 Calcium 8.1 (L) 8.5 - 10.4 [facility] mg/dL AST 48 0 - 55 U/L [facility] Protein Total 6.6 6.0 - 8.2 [facility] g/dL Anion Gap 7 6 - 17 [place] mmol/L Albumin 3.2 3.2 - 4.5 [place] g/dL ALT 91 (H) 0 - 70 U/L [facility] Alkaline 113 40 - 150 [place] Phosphatase U/L Bilirubin Total 1.3 0.2 - 1.3 [place] mg/dL Specimen (Source) Anatomical Collection Method Collection Time Re ceived Time Location / / Volume Laterality 03/18/2006 7:08 AM 6 CDT Patric Powell MD LAB - BLOOD ORDERABLES Performing Organization Address City/State/ZIP Code Phon e Number [place] Prealbumin (03/18/2006 7:08 AM CDT) P athologist Signature Prealbumin 19 15 - 45 [place] mg/dL Specimen (Source) Anatomical Collection Method Collection Time Re ceived Time Location / / Volume Laterality 03/18/2006 7:08 AM 6 CDT Patric Powell MD LAB - BLOOD ORDERABLES Performing Organization Address City/State/ZIP Code Phon e Number [place] INR (03/18/2006 7:08 AM CDT) P athologist Signature INR 0.97 0.86 - 1.14 [place] Specimen (Source) Anatomical Collection Method Collection Time Re ceived Time Location / / Volume Laterality 03/18/2006 7:08 AM 6 CDT Patric Powell MD LAB - BLOOD ORDERABLES Performing Organization Address City/State/ZIP Code Phon e Number [place] Phosphorus (03/18/2006 7:08 AM CDT) P athologist Signature Phosphorus 3.7 2.5 - 4.5 [place] mg/dL Specimen (Source) Anatomical Collection Method Collection Time Re ceived Time Location / / Volume Laterality 03/18/2006 7:08 AM 6 CDT Patric Powell MD LAB - BLOOD ORDERABLES Performing Organization Address [facility] Phon e Number [place] Magnesium (03/18/2006 7:08 AM CDT) athologist Signature Magnesium 2.3 1.6 - 2.3 [place] mg/dL Specimen (Source) Anatomical Collection Method Collection Time Re ceived Time Location / / Volume Laterality 03/18/2006 7:08 AM 6 CDT Patric Powell MD LAB - BLOOD ORDERABLES Performing Organization Address [facility] Phon e Number [place] Triglycerides (03/18/2006 7:08 AM CDT) P athologist Signature Triglycerides 119 0 - 150 [place] mg/dL Specimen (Source) Anatomical Collection Method Collection Time Re ceived Time Location / / Volume Laterality 03/18/2006 7:08 AM 6 CDT Patric Powell MD LAB - BLOOD ORDERABLES Performing Organization Address [facility] Phon e Number [place] documented in this encounter Visit Diagnoses Not on filedocumented in this encounter
--- OUTSIDE RECORDS SUMMARY | 2022-04-05 08:04 | XMS_ITS | Encounter Summary ---
:1940 Author Organization [place] Address [address] [facility] [address] Care Team Providers Name Role Phone Unavailable Primary Care Provider Unavailable Encounter Details Date Type Department Care Team Description 03/04/2007 Results Only [facility] Shamar Butterfield, Hospital Results [facility] [address] [place] [address] (Wo rk) Social History Tobacco Use Types Packs/Day Years Used Date Never Assessed Sex Assigned at Date Recorded Not on file documented as of this encounter Plan of Treatment Not on filedocumented as of this encounter Procedures Procedure Name Priority Date/Time Associated Diagnosis Comme [facility] RT MRI JOINT Routine 03/04/2007 9:04 AM Resul ts for this UPPER EXTREMITY CDT procedure ar e in the results section. documented in this encounter Results RT MRI JOINT UPPER EXTREMITY (03/04/2007 9:04 AM CDT) Specimen (Source) Anatomical Collection Method Collection Time Re ceived Time Location / / Volume Laterality 03/04/2007 9:04 AM CDT Impressions RADIOLOGY RESULTS - 03/04/2007 2:35 PM C DT MRI RIGHT UPPER EXTREMITY JOINT WITHOUT CONTRAST * Mar 04, 2007 9:04:00 AM HISTORY: Right shoulder pain and weaknes s. Rotator cuff tear. TECHNIQUE: Axial dual echo T2. Coronal T 1. Coronal T2 with and without fat suppression. Sagittal T2. FINDINGS: Osseous acromion outlet: Changes of mild AC arthrosis. The distal clavicle results in mild impression upon the supraspinatus musculotendinous junction. There is an o s acromiale. Acromion shape is type II. Rotator cuff: There is a partial thickne ss undersurface tear involving the mid portion of the supraspinatus ten don. This measures about 5 mm in the medial lateral dimension, 10 mm i n AP dimension, and 2.5 mm in thickness. Mild supraspinatus tendinosis elsewhere. Mild subscapularis tendinosis. Labral structures: The anterior labrum i s not well evaluated due to absence of significant effusion. No supe rior labral tear identified. Biceps tendon: No tear identified. Osseous and cartilaginous structures: Mi ld resorptive change of the humeral head. Additional findings: No significant effu pedro. CONCLUSION: 1. Partial thickness supraspinatus tendo n tear and tendinosis. Some findings which can predispose to impinge ment, as above. 2. Mild subscapularis tendinosis. Shamar Butterfield MD [employer] [employer] Performing Organization Address City/State/ZIP Code Phon e Number RADIOLOGY RESULTS documented in this encounter Visit Diagnoses Not on filedocumented in this encounter
--- OUTSIDE RECORDS SUMMARY | 2022-04-05 08:04 | XMS_ITS | Encounter Summary ---
:1940 Author Organization [place] Address [address] [facility] [place] [address] Care Team Providers Name Role Phone Unavailable Primary Care Provider Unavailable Encounter Details Date Type Department Care Team Description 03/13/2006 Historic Results INTERFACED REPORT Rona Burrell MD [facility] [place] [address] [facility] [address] [place] [address] Social History Tobacco Use Types Packs/Day Years Used Date Never Assessed Sex Assigned at Date Recorded Not on file documented as of this encounter Plan of Treatment Not on filedocumented as of this encounter Procedures Procedure Name Priority Date/Time Associated Comments Diagnosis GLUCOSE BY METER Routine 03/13/2006 11:50 Results for this PM CDT procedure are i n the results section. GLUCOSE BY METER Routine 03/13/2006 6:02 PM Resul ts for this CDT procedure are i n the results section. TRIGLYCERIDES Timed 03/13/2006 3:52 PM Results for this CDT procedure are i n the results section. INR Timed 03/13/2006 3:52 PM Results f or this CDT procedure are i n the results section. PREALBUMIN Timed 03/13/2006 3:52 PM Results f or this CDT procedure are i n the results section. PHOSPHORUS Timed 03/13/2006 3:52 PM Results f or this CDT procedure are i n the results section. MAGNESIUM Timed 03/13/2006 3:52 PM Results f or this CDT procedure are i n the results section. COMPREHENSIVE METABOLIC Timed 03/13/2006 3:52 PM Results for this PANEL CDT procedure are i n the results section. HISTOPATHOLOGY Routine 03/13/2006 12:00 Results f or this AM CDT procedure are i n the results section. documented in this encounter Results (ABNORMAL) Glucose by meter (03/13/2006 11:50 PM CDT) athologist Signature Glucose 179 (H) 60 - 110 MISYS mg/dL Specimen Anatomical Collection Method Collection Time Receive d Time (Source) Location / / Volume Laterality 03/13/2006 11:50 03/14/2006 6:15 PM CDT AM CDT Anna NORMAN - KYLE POCT Performing Organization Address City/State/ZIP Code Phon e Number MISYS (ABNORMAL) Glucose by meter (03/13/2006 6:02 PM CDT) athologist Signature Glucose 176 (H) 60 - 110 MISYS mg/dL Specimen Anatomical Collection Method Collection Time Receive d Time (Source) Location / / Volume Laterality 03/13/2006 6:02 PM 6 6:10 CDT PM CDT Anna NORMAN - KYLE POCT Performing Organization Address City/State/[facility] [[email or web address]] Code Phon e Number MISYS (ABNORMAL) Comprehensive metabolic panel (03/13/2006 3:52 PM CDT) Analysis Performed At Patho logist Time Signature Sodium 140 133 - 144 MISYS mmol/L Potassium 4.1 3.4 - 5.3 MISYS mmol/L Chloride 105 94 - 109 MISYS mmol/L Carbon Dioxide 27 20 - 32 MISYS mmol/L Glucose 167 (H) 60 - 110 MISYS mg/dL Urea Nitrogen 12 7 - 30 MISYS mg/dL Creatinine 0.80 0.80 - MISYS 1.50 mg/dL GFR Estimate >90 >60 MISYS mL/min/1.7 m2 GFR Estimate If >90 >60 MISYS Black mL/min/1.7 m2 Calcium 8.3 (L) 8.5 - 10.4 MISYS mg/dL AST 44 0 - 55 U/L MISYS Protein Total 7.5 6.0 - 8.2 MISYS g/dL Anion Gap 9 6 - 17 MISYS mmol/L Albumin 4.0 3.2 - 4.5 MISYS g/dL ALT 39 0 - 70 U/L MISYS Alkaline 63 40 - 150 MISYS Phosphatase U/L Bilirubin Total 1.1 0.2 - 1.3 MISYS mg/dL Specimen Anatomical Collection Method Collection Time Receive d Time (Source) Location / / Volume Laterality 03/13/2006 3:52 PM 6 3:30 CDT PM CDT Anna Burrell MD LAB - BLOOD ORDERABLES Performing Organization Address [facility] Phon e Number MISYS Prealbumin (03/13/2006 3:52 PM CDT) athologist Signature Prealbumin 27 15 - 45 MISYS mg/dL Specimen Anatomical Collection Method Collection Time Receive d Time (Source) Location / / Volume Laterality 03/13/2006 3:52 PM 6 3:30 CDT PM CDT Anna Burrell MD LAB - BLOOD ORDERABLES Performing Organization Address [facility] Phon e Number MISYS Phosphorus (03/13/2006 3:52 PM CDT) athologist Signature Phosphorus 4.2 2.5 - 4.5 MISYS mg/dL Specimen Anatomical Collection Method Collection Time Receive d Time (Source) Location / / Volume Laterality 03/13/2006 3:52 PM 6 3:30 CDT PM CDT Anna Burrell MD LAB - BLOOD ORDERABLES Performing Organization Address [facility] Phon e Number MISYS Magnesium (03/13/2006 3:52 PM CDT) athologist Signature Magnesium 1.7 1.6 - 2.3 MISYS mg/dL Specimen Anatomical Collection Method Collection Time Receive d Time (Source) Location / / Volume Laterality 03/13/2006 3:52 PM 6 3:30 CDT PM CDT Anna Burrell MD LAB - BLOOD ORDERABLES Performing Organization Address [facility] Phon e Number MISYS Triglycerides (03/13/2006 3:52 PM CDT) athologist Signature Triglycerides 119 0 - 150 MISYS mg/dL Specimen Anatomical Collection Method Collection Time Receive d Time (Source) Location / / Volume Laterality 03/13/2006 3:52 PM 6 3:30 CDT PM CDT Anna Burrell MD LAB - BLOOD ORDERABLES Performing Organization Address City/[facility]/ZIP Code Phon e Number MISYS INR (03/13/2006 3:52 PM CDT) P athologist Signature INR 0.90 0.86 - 1.14 MISYS Specimen Anatomical Collection Method Collection Time Receive d Time (Source) Location / / Volume Laterality 03/13/2006 3:52 PM 6 3:30 CDT PM CDT Anna Burrell MD LAB - BLOOD ORDERABLES Performing Organization Address City/[facility]/ZIP Code Phon e Number MISYS Histopathology (03/13/2006 12:00 AM CDT) Component Value Ref Test Analysis Performed At [facility] gist Range Method Time Signature Copath Report CASE: [id number] ^ [facility] Patient Name: DONALDO BAUTISTA MR#: [id number] Specimen #: [id number] Collected: 03/13/2006 Received: 03/13/2006 Reported: 03/15/2006 14:05 Ordering Phy(s): ANNA BURRELL SPECIMEN(S): Ascending colon and ileum FINAL DIAGNOSIS: Terminal ileum and right colon, resection - 1. 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 2. ?No evidence of invasive malignancy. 3. ?Surgical margins without abnormalities. 4. ?No appendix identified. Lymph nodes, pericolonic, resection - 1. ?Ten lymph nodes; no evidence of malignancy. 2. ?One lymph node with non-necrotizing granulo mas. Electronically signed out by: Gunnar Valenzuela M.D. CLINICAL HISTORY: Colon polyp; incisional hernia. GROSS: The specimen, labeled ascending colon and ileum, consists of a segment of intestine measuring 26 cm in length x 9.5 cm in greatest circumference. ??The outer surface is partially covered by i rregular layer of focally ??hemorrhagic adipose tissue. ??No appendix is identified. ??The specimen is opened along its antimesenteri c border. The terminal ileum, ileocecal valve, cecum, and ascending co felix are identified. ??The terminal ileum is 7 cm in length x 4 cm in diameter, and appears without abnormalities. ??The ileocecal valve mirella ws an area of discoloration. ??We cannot exclude this being a polyp. ??Ten cm from the proximal margin and 10 cm from the distal margin, there is a 4.5 cm in greatest diameter sessile polypoid tumor. ??The tumor has a gyriform architecture. ??It is gamez to pink in color and soft in consi stency. ??No other lesions are identified. ??Ritual Circumciser sections are submitted. P/sg SUMMARY OF SECTIONS: 1. ?Ileal margin 2. ?Colonic margin 3. through 10. ??Serial sections of polypoid tumor 11. ?Ileocecal valve. 12. ?Random colonic mucosa 13. through 15. ??Pericolonic lymph nodes INTRAOPERATIVE CONSULTATION: GROSS SURGICAL CONSULTATION: 1. ?Terminal ileum, ileocecal valve and ascending colon present. 2. ?4.5 cm in diameter sessile polypoid t umor, ascending colon, 10 cm from ileal and colonic margins. 3. No appendix present ([facility]). MICROSCOPIC: Microscopic examination was performed. P/sg 03-15-2006 TESTING LAB LOCATION: [address] ??[id number] COLLECTION SITE: Client: [facility] Location: [facility] (R) Specimen (Source) Anatomical Collection Method Collection Time Re ceived Time Location / / Volume Laterality 03/13/2006 03/15/2006 2:05 PM CDT Anna Burrell MD LAB - COPATH SPECIAL DIAG OR DERABLES Performing Organization Address City/State/ZIP Code Phon e Number COPATH documented in this encounter Visit Diagnoses Not on filedocumented in this encounter
--- OUTSIDE RECORDS SUMMARY | 2022-04-05 08:04 | XMS_ITS | Encounter Summary ---
:1940 Author Organization [place] Address [address] [facility] 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 - INPATIENT 03/15/2006 FR-Rt Colon Po lyp Encounter Details Date Type Department Care Team Description 03/15/2006 Telephone [place] PHYSICIAN Dorothy Ho FACILITIES OPERATOR - ASSOCIATES - CARE [facility] PHYSICIAN INPATIENT ([facility]NAG[facility]PT [facility] Colon Polyp) [address] [place] [address] [place] [id number] [phone] Social History Tobacco Use Types Packs/Day Years Used Date Never Assessed Sex Assigned at Date Recorded Not on file documented as of this encounter Miscellaneous Notes Telephone Encounter - Bandar Ho - 03/22/2006 9:49 AM CDT PASS, ERV, EPIC and FCIS reviewed. PASS indicates member discharged to home on 03/21/06. LUCY Hogan CM FPA Telephone Encounter - Bandar Ho - 03/20/2006 8:51 AM CDT PASS, ERV, EPIC and FCIS reviewed. LUCY Hogan CM FPA Telephone Encounter - Bandar Ho - 03/18/2006 10:29 AM CDT PASS, ERV, EPIC and FCIS reviewed. LUCY Hogan CM FPA Telephone Encounter - Bandar Ho - 03/15/2006 11:04 AM CDT This [facility] member was admitted to [facility], DX: Rt Colon Polyp. PASS, ERV, EPIC and FCIS reviewed. RE: Discharge Planning - LVM with Piedad Rea, , that this member should stay within the [facility] to optimize continuity of care and coordination of benefits and to call if questions. LUCY Hogan CM FPA documented in this encounter Plan of Treatment Not on filedocumented as of this encounter Visit Diagnoses Not on filedocumented in this encounter
--- OUTSIDE RECORDS SUMMARY | 2022-04-05 08:04 | XMS_ITS | Encounter Summary ---
:1940 Author Organization [place] Address [facility] [place] [address] Care Team Providers Name Role Phone Unavailable Primary Care Provider Unavailable Encounter Details Date Type Department Care Team Description 03/13/2006 Historic Results INTERFACED REPORT Interface, Ion cramer MD Social History Tobacco Use Types Packs/Day Years Used Date Never Assessed Sex Assigned at Date Recorded Not on file documented as of this encounter Plan of Treatment Not on filedocumented as of this encounter Procedures Procedure Name Priority Date/Time Associated Diagnosis Comme nts EKG 12 LEAD Routine 03/13/2006 8:05 AM Results f or this CDT procedure are i n the results section . documented in this encounter Results EKG 12 LEAD (03/13/2006 8:05 AM CDT) Component Value Ref Range Test Analysis Performed Pathologis t Method Time At Signature Ventricular Rate 88 BPM RADIOLOGY RESULTS Atrial Rate 88 BPM RADIOLOGY RESULTS IN Interval 158 ms RADIOLOGY RESULTS QRS Duration 96 ms RADIOLOGY RESULTS QT 360 ms RADIOLOGY RESULTS QTc 435 ms RADIOLOGY RESULTS P [place] 62 degrees RADIOLOGY RESULTS R AXIS 14 degrees RADIOLOGY RESULTS T [place] 30 degrees RADIOLOGY RESULTS Interpretation AGE AND GENDER SPECIFIC ECG ANALYSIS RADIOLOGY ECG Sinus rhythm RESULTS Normal ECG Unconfirmed report - interpretation of this ECG is compute r generated - see medical record for final interpretation Specimen Anatomical Collection Method Collection Time Receive d Time (Source) Location / / Volume Laterality 03/13/2006 8:05 AM 6 CDT 10:28 AM CDT Transcripton Interface ECG ORDERABLES Performing Organization Address City/State/ZIP Code Phon e Number RADIOLOGY RESULTS documented in this encounter Visit Diagnoses Not on filedocumented in this encounter
--- OUTSIDE RECORDS SUMMARY | 2022-04-05 08:04 | XMS_ITS | Encounter Summary ---
:1940 Author Organization [place] Address [address] [facility] [place] [address] Care Team Providers Name Role Phone Unavailable Primary Care Provider Unavailable Encounter Details Date Type Department Care Team Description 03/19/2006 [facility] Results [address] [place], [place] [address] (Wo rk) Social History Tobacco Use Types Packs/Day Years Used Date Never Assessed Sex Assigned at Date Recorded Not on file documented as of this encounter Plan of Treatment Not on filedocumented as of this encounter Procedures Procedure Name Priority Date/Time Associated Diagnosis Comme nts HC CHEST TWO VIEWS, Routine 03/19/2006 5:55 PM Re sults for this FRONT/LAT CDT procedure are i n the results section. documented in this encounter Results CHEST X-RAY 2 VW (03/19/2006 5:55 PM CDT) Specimen (Source) Anatomical Collection Method Collection Time Re ceived Time Location / / Volume Laterality 03/19/2006 5:55 PM CDT Impressions RADIOLOGY RESULTS - 03/21/2006 8:05 AM C DT 2 VIEW CHEST - 03/19/2006 ?? CLINICAL HISTORY: Cough. Evaluate for co ngestive heart failure. ?? FINDINGS: Heart size upper limits of nor mal. Pulmonary vasculature within normal limits. No convincing foca l infiltrates. Naga Price MD GENERAL IMAGING Performing Organization Address City/State/ZIP Code Phon e Number RADIOLOGY RESULTS documented in this encounter Visit Diagnoses Not on filedocumented in this encounter
--- OUTSIDE RECORDS SUMMARY | 2022-04-05 08:04 | XMS_ITS | Encounter Summary ---
:1940 Author Organization [place] Address [address] [facility] 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 [facility] Sr member Encounter Details Date Type Department Care Team Description 10/01/2003 Telephone [place] PHYSICIAN Kimberly Little CAS E INDUSTRIAL ECONOMICS TEACHER - [facility] - CARE RN CONTACT ([facility] Sr MANAGEMENT DEPT [employer] member) [address] [place] [address] [address] [address] [address] [place] [address] [place] [address] [phone] Social History Tobacco Use Types Packs/Day Years Used Date Never Assessed Sex Assigned at Date Recorded Not on file documented as of this encounter Miscellaneous Notes Telephone Encounter - 10/01/2003 11:[address] JUDGE >> KIMBERLY L[facility] Oct 01, 2003 11:39 AM >> CALL RECEIVED. Contact: Letter sent to [facility] to inform them that this member is new with [facility] for [facility]. A letter of introduction with patient program information has been mailed to this member in cluding my name and contact information as the [facility] for Senior member and my assistance in care reyes nning. documented in this encounter Plan of Treatment Not on filedocumented as of this encounter Visit Diagnoses Not on filedocumented in this encounter
--- OUTSIDE RECORDS SUMMARY | 2022-04-05 08:04 | XMS_ITS | Encounter Summary ---
:1940 Author Organization [place] Address [address] [facility] [place] [address] Care Team Providers Name Role Phone Unavailable Primary Care Provider Unavailable Encounter Details Date Type Department Care Team Description 03/15/2006 Historic Results INTERFACED REPORT Rona Powell MD [facility]GICAL [facility] [address] [facility] [address] [place] [address] Social History Tobacco Use Types Packs/Day Years Used Date Never Assessed Sex Assigned at Date Recorded Not on file documented as of this encounter Plan of Treatment Not on filedocumented as of this encounter Procedures Procedure Name Priority Date/Time Associated Diagnosis Comme nts GLUCOSE BY METER Routine 03/15/2006 6:48 PM Resul ts for this CDT procedure are i n the results section. GLUCOSE BY METER Routine 03/15/2006 11:04 AM Resu lts for this CDT procedure are i n the results section. GLUCOSE BY METER Routine 03/15/2006 7:03 AM Resul ts for this CDT procedure are i n the results section. PHOSPHORUS Routine 03/15/2006 6:23 AM Results f or this CDT procedure are i n the results section. MAGNESIUM Routine 03/15/2006 6:23 AM Results f or this CDT procedure are i n the results section. GLUCOSE BY METER Routine 03/15/2006 12:25 AM Resu lts for this CDT procedure are i n the results section. documented in this encounter Results Glucose by meter (03/15/2006 6:48 PM CDT) P athologist Signature Glucose 107 60 - 110 MISYS mg/dL Specimen Anatomical Collection Method Collection Time Receive d Time (Source) Location / / Volume Laterality 03/15/2006 6:48 PM 6 7:00 CDT PM CDT Patric NORMAN - KYLE POCT Performing Organization Address [facility]/ZIP Code Phon e Number MISYS Glucose by meter (03/15/2006 11:04 AM CDT) P athologist Signature Glucose 94 60 - 110 MISYS mg/dL Specimen Anatomical Collection Method Collection Time Receive d Time (Source) Location / / Volume Laterality 03/15/2006 11:04 03/15/2006 AM CDT 11:15 AM CDT Patric NORMAN - KYLE POCT Performing Organization Address City/[facility] Code Phon e Number MISYS (ABNORMAL) Glucose by meter (03/15/2006 7:03 AM CDT) P athologist Signature Glucose 120 (H) 60 - 110 MISYS mg/dL Specimen Anatomical Collection Method Collection Time Receive d Time (Source) Location / / Volume Laterality 03/15/2006 7:03 AM 6 7:20 CDT AM CDT Patric WRIGHT POCT Performing Organization Address [facility] Code Phon e Number MISYS Phosphorus (03/15/2006 6:23 AM CDT) P athologist Signature Phosphorus 2.5 2.5 - 4.5 MISYS mg/dL Specimen (Source) Anatomical Collection Method Collection Time Re ceived Time Location / / Volume Laterality 03/15/2006 6:23 AM 6 CDT Patric Powell MD LAB - BLOOD ORDERABLES Performing Organization Address City/[facility]/ZIP Code Phon e Number MISYS Magnesium (03/15/2006 6:23 AM CDT) P athologist Signature Magnesium 2.3 1.6 - 2.3 MISYS mg/dL Specimen (Source) Anatomical Collection Method Collection Time Re ceived Time Location / / Volume Laterality 03/15/2006 6:23 AM 6 CDT Patric Powell MD LAB - BLOOD ORDERABLES Performing Organization Address City/[facility] Code Phon e Number MISYS (ABNORMAL) Glucose by meter (03/15/2006 12:25 AM CDT) P athologist Signature Glucose 124 (H) 60 - 110 MISYS mg/dL Specimen Anatomical Collection Method Collection Time Receive d Time (Source) Location / / Volume Laterality 03/15/2006 12:25 03/15/2006 7:20 AM CDT AM CDT Patric Powell MD LAB - BEAKER POCT Performing Organization Address [facility] Phon e Number MISYS documented in this encounter Visit Diagnoses Not on filedocumented in this encounter
--- OUTSIDE RECORDS SUMMARY | 2022-04-05 08:04 | XMS_ITS | Encounter Summary ---
:1940 Author Organization [place] Address [facility] [place] [address] Care Team Providers Name Role Phone Unavailable Primary Care Provider Unavailable Encounter Details Date Type Department Care Team Description 01/19/2010 Results Only [facility] Jannette perea, Zen Damico MD Hospital Results [address] [address] (Wo rk) Social History Tobacco Use Types Packs/Day Years Used Date Never Assessed Sex Assigned at Date Recorded Not on file documented as of this encounter Plan of Treatment Not on filedocumented as of this encounter Procedures Procedure Name Priority Date/Time Associated Diagnosis Comme nts HC CHEST TWO VIEWS, Routine 01/19/2010 5:46 PM Re sults for this FRONT/LAT CDT procedure are i n the results section. documented in this encounter Results CHEST X-RAY 2 VW (01/19/2010 5:46 PM CDT) Specimen (Source) Anatomical Collection Method Collection Time Re ceived Time Location / / Volume Laterality 01/19/2010 5:46 PM CDT Impressions RADIOLOGY RESULTS - 01/20/2010 7:07 AM C DT CHEST TWO VIEW* Jan 19, 2010 5:46:00 PM HISTORY: ??Chest wall pain, short of lizette ath,cough FINDINGS: Negative. Zen Rousseau MD GENERAL IMAGING Performing Organization Address City/State/ZIP Code Phon e Number RADIOLOGY RESULTS documented in this encounter Visit Diagnoses Not on filedocumented in this encounter
--- OUTSIDE RECORDS SUMMARY | 2022-04-05 08:04 | XMS_ITS | Encounter Summary ---
:1940 Author Organization [place] Address [address] [facility] [place] [address] Care Team Providers Name Role Phone Zen Rousseau MD Unavailable Zen Rousseau MD Primary Care Provider Mckenzie Mayorga MD Primary Care Provider Luis Alberto Hernandez MD Primary Care Provider Encounter Details Date Type Department Care Team Description 04/03/1991 Historic Results [facility] Unknown, [address] [place] [address] Social History Tobacco Use Types Packs/Day Years Used Date Never Assessed Sex Assigned at Date Recorded Not on file documented as of this encounter Plan of Treatment Not on filedocumented as of this encounter Procedures Procedure Name Priority Date/Time Associated Diagnosis Comme nts ECHO CARDIAC - HIM SCAN 04/03/1991 12:00 AM CDT - ARCHIVE documented in this encounter Results ECHO CARDIAC - HIM SCAN - ARCHIVE (04/03/1991 12:00 AM CDT) Specimen (Source) Anatomical Location Collection Method / Collectio n Time Received Time / Laterality Volume 04/03/1991 Narrative This result has an attachment that is no t available. 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
--- OUTSIDE RECORDS SUMMARY | 2022-04-05 08:04 | XMS_ITS | Encounter Summary ---
:1940 Author Organization [place] Address [address] [facility] [address] Care Team Providers Name Role Phone Unavailable Primary Care Provider Unavailable Encounter Details Date Type Department Care Team Description 03/04/2006 GI Procedure [facility] Abhijit Elias MD None Endoscopy [facility] XX RETIRED XXX [address] [place] [address] [place] [address] [phone] Social History Tobacco Use Types Packs/Day Years Used Date Never Assessed Sex Assigned at Date Recorded Not on file documented as of this encounter Plan of Treatment Not on filedocumented as of this encounter Procedures Procedure Name Priority Date/Time Associated Diagnosis Comme nts COLONOSCOPY Routine 03/04/2006 10:20 AM Results for this CDT procedure are i n the results section . documented in this encounter Results COLONOSCOPY (03/04/2006 10:20 AM CDT) [facility] Time Signature COLONOSCOPY Endoscopy RADIOLOGY RESULTS Patient Name: Sreedhar Bautista ?Gender: M ? Procedure Date: 03/04/2006 10 :20 AM ? Date of : 1940 ?Age: 66 ? Admit Type: Outpatient ? Attending MD: Abhijit Elias ? Procedure: ?Colonoscopy Indications: ?Personal history of colonic polyps Providers: ?Abhijit Elias MD Referring MD: ?? Zen Rousseau MD Medicines: ?Fentanyl 100 mcg IV, Midazola m 1 mg IV, Atropine 0.6 mg IV Complications: ??No immediate complications Procedure: ?- A History and Physical has been perfo rmed, and patient ?medi cation allergies have been reviewed. The patient The ?risk s and benefits of the procedure and the sedation options ?and risks were discussed with the patient. All questions were ?answered and informed consent was obtained. Patient ?iden tification and proposed procedure were verified prior to ?the procedure by the physician in the procedure room. Mental ?Stat us Examination: normal. Respiratory Examination: clear to ?ausc ultation. CV Examination: normal. ASA Grade Assessment: ?P1 A normal healthy patient. After reviewing the risks and ?bene fits, the patient was deemed in satisfactory condition to ?undergo the procedure. T he anesthesia plan was to use ?moderate sedation / analgesia (con scious sedation). ?Imme diately prior to administration of medications, the ?anne ent was re-assessed for adequacy to receive sedatives. ?The heart rate, respiratory rate, oxygen saturations, blood ?pres sure, adequacy of pulmonary ventilation, and response to ?care were monitored throughout the procedure. The physical ?stat us of the patient was re-assessed after the procedure. ?Afte r obtaining informed consent, the colonoscope was passed ?unde r direct vision. Throughout the procedure, the patient's ?bloo d pressure, pulse, and oxygen saturations were monitored ?cont inuously. The [id number] was introduced through ?the anus and advanced to cecum, identified by the appendiceal ?orif ice, ileocecal valve and palpation. The colonoscopy was ?acco mplished without difficulty. The patient tolerated the ?procedure well. The quality of the prep was excellent. ? Findings: ? The digital rectal ex am was normal. A sessile non-obstructing large mass ? was found in the ascending colon. The mas s was non-circumferential. No ? bleeding was present. Two peduncu lated polyps were found at the splenic ? flexure. The polyps were 2 mm in size. These polyps were removed with a ? hot snare. Resection and retrieval were complete.Th e rectum, sigmoid ? colon, descending colon, mid transverse c olon and hepatic flexure were ? normal. The retroflexed view of t he anal verge was normal and showed no ? anal or rectal abnormalities. ? Impression: ? - Tumor. Removal was not done. ?- Two 2 mm polyp s in the splenic flexure. Resected and ?retrieved. ?- Th e rectum, sigmoid colon, descending colon, mid transverse ?colon and hepatic flexure are normal . Recommendation: - Discharge patient to home (ambulatory). ?- Discharge patient to home (ambulat ory). ?- Refer to a surgeon today. ?- Return to primary care provider [place]. ? CPT Code(s): ?88324, Colonoscopy, flexible, proxim al to splenic flexure; ?with removal of tumor(s), polyp(s), or other lesion(s) by ?snare technique ICD Code(s): ?239.0, Neoplasm of Unspecified Nature of Digestive System ?211.3, Benign Neoplasm of Colon ?V12.72, Personal History of Colonic Polyps The codes documented in this report are prelimin nav and upon parts room assistant review may be revised to meet current compliance requirements. Philip Elias M.D Abhijit Elias MD Signed Date: 03/04/2006 10:46 AM Number of Addenda: 0 I was physically present for the entire viewing portion of t he exam. Note generated on 03/04/2006 10:20 AM COLONOSCOPY RADIOLOGY RESULTS Specimen (Source) Anatomical Collection Method Collection Time Re ceived Time Location / / Volume Laterality 03/04/2006 10:20 AM CDT Abhijit Elias MD PROCEDURES Performing Organization Address City/State/ZIP Code Phon e Number RADIOLOGY RESULTS documented in this encounter Visit Diagnoses Not on filedocumented in this encounter
--- OUTSIDE RECORDS SUMMARY | 2022-04-05 08:04 | XMS_ITS | Encounter Summary ---
:1940 Author Organization [place] Address [address] [place] [address] Care Team Providers Name Role Phone Zen Rousseau MD Unavailable Zen Rousseau MD Primary Care Provider Mckenzie Mayorga MD Primary Care Provider Luis Alberto Hernandez MD Primary Care Provider Encounter Details Date Type Department Care Team Description 03/13/2006 Historic Results [facility] Heart Unknown, [address] [place] [address] Social History Tobacco Use Types Packs/Day Years Used Date Never Assessed Sex Assigned at Date Recorded Not on file documented as of this encounter Plan of Treatment Not on filedocumented as of this encounter Procedures Procedure Name Priority Date/Time Associated Diagnosis Comme nts ECHO CARDIAC - HIM SCAN 03/13/2006 12:00 AM CDT - ARCHIVE documented in this encounter Results ECHO CARDIAC - HIM SCAN - ARCHIVE (03/13/2006 12:00 AM CDT) Specimen (Source) Anatomical Location Collection Method / Collectio n Time Received Time / Laterality Volume 03/13/2006 Narrative This result has an attachment that is no t available. 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
--- OUTSIDE RECORDS SUMMARY | 2022-04-05 08:04 | XMS_ITS | Encounter Summary ---
:1940 Author Organization [place] Address [address] [facility] [place] [address] Care Team Providers Name Role Phone Unavailable Primary Care Provider Unavailable Encounter Details Date Type Department Care Team Description 02/24/2007 GI Procedure [facility] [place], Patric Whelan, None Endoscopy Mackenzie MAXWELL [address] [facility] [place], [place] [address] [facility] [address] [phone] [place] [address] [phone] Social History Tobacco Use Types Packs/Day Years Used Date Never Assessed Sex Assigned at Date Recorded Not on file documented as of this encounter Plan of Treatment Not on filedocumented as of this encounter Procedures Procedure Name Priority Date/Time Associated Diagnosis Comme nts COLONOSCOPY Routine 02/24/2007 8:20 AM Results f or this CDT procedure are i n the results section . documented in this encounter Results COLONOSCOPY (02/24/2007 8:20 AM CDT) [facility] Method Time Signature COLONOSCOPY Endoscopy RADIOLOGY RESULTS Patient Name: Sreedhar Bautista ?Gender: M ? Procedure Date: 02/24/2007 8: 20 AM ? Date of : 1940 ?Age: 67 ? Admit Type: Outpatient ? Attending MD: Abhijit Elias ? Procedure: ?Colonoscopy Indications: ?Personal history of colonic polyps Providers: ?Abhijit Elias MD Referring MD: ?? Patric Powell MD, Zen Rousseau MD Medicines: ?Fentanyl 100 mcg IV, Midazolam 1.5 mg IV, Atropine 0.6 mg IV Complications: [...] ultation. CV Examination: normal. ASA Grade Assessment: ?P2 A patient with mild systemic disease. After reviewing the ?risk s and benefits, the patient was deemed in satisfactory ?cond ition to undergo the procedure. The anesthesia plan was ?to u se moderate sedation / analgesia (conscious sedation). ?Imme diately prior to administration of [...] oxygen saturations were monitored ?cont inuously. The [id number] was introduced through ?the anus and advanced to the ileum. The colonoscopy was ?acco mplished without difficulty. The patient tolerated the ?procedure well. The quality of the prep was excellent. ? Findings: ? The digital rectal exam was normal. The rectum, sigmo id colon, ? descending colon, splenic flexure, transverse c olon, hepatic flexure, ? ascending colon, ileu m and anastomosis were normal. The retroflexed view ? of the anal verge was normal and showed no anal or rectal abnormalities. ? The terminal ileum was normal. ? Impression: ? - The rectum, sigmoid colon, descending co felix, splenic ?flex ure, transverse colon, hepatic flexure, ascending colon, ?terminal ileum and colonic anastomos is are normal. ?- The terminal ileum is normal. Recommendation: - Discharge patient to home (ambulatory). ?- Repeat colonoscopy in 4 years for surveillance. ?- Return to primary care provider [place]. ? R Jada Curry Abhijit Elias MD Signed Date: 02/24/2007 8:40 AM Number of Addenda: 0 I was physically present for the entire viewing portion of t he exam. Note generated on 02/24/2007 8:22 AM COLONOSCOPY RADIOLOGY RESULTS Specimen (Source) Anatomical Collection Method Collection Time Re ceived Time Location / / Volume Laterality 02/24/2007 8:20 AM CDT Patric Powell MD PROCEDURES Performing Organization Address City/State/ZIP Code Phon e Number RADIOLOGY RESULTS documented in this encounter Visit Diagnoses Not on filedocumented in this encounter
--- OUTSIDE RECORDS SUMMARY | 2022-04-05 08:04 | XMS_ITS | Encounter Summary ---
:1940 Author Organization [place] Address [facility] [facility] [place] [place] [address] Care Team Providers Name Role Phone Unavailable Primary Care Provider Unavailable Encounter Details Date Type Department Care Team Description 03/19/2006 Historic Results [facility] Valerio Tran, Hospitalists [address] [place], [place] [address] [phone] Social History Tobacco Use Types Packs/Day Years Used Date Never Assessed Sex Assigned at Date Recorded Not on file documented as of this encounter Plan of Treatment Not on filedocumented as of this encounter Procedures Procedure Name Priority Date/Time Associated Comments Diagnosis B TYPE NATRIURETIC STAT 03/19/2006 5:12 PM Res ults for this PEPTIDE CDT procedure are i n the results section. BASIC METABOLIC PANEL STAT 03/19/2006 5:12 PM Results for this CDT procedure are i n the results section. documented in this encounter Results Brain naturiuretic peptide nt pro (03/19/2006 5:12 PM CDT) P athologist Signature BNP 17 5 - 100 [place] pg/mL Specimen Anatomical Collection Method Collection Time Receive d Time (Source) Location / / Volume Laterality 03/19/2006 5:12 PM 6 5:04 CDT PM CDT Naga Price MD LAB - BLOOD ORDERABLES Performing Organization Address City/State/ZIP Code Phon e Number MISYS (ABNORMAL) Basic metabolic panel (03/19/2006 5:12 PM CDT) P athologist Signature Sodium 142 133 - 144 [place] mmol/L Potassium 3.4 3.4 - 5.3 [place] mmol/L Chloride 107 94 - 109 [place] mmol/L Carbon Dioxide 27 20 - 32 [place] mmol/L Glucose 114 (H) 60 - 110 [place] mg/dL Urea Nitrogen 11 7 - 30 [place] mg/dL Creatinine 0.90 0.80 - [place] 1.50 mg/dL GFR Estimate 89 >60 [place] mL/min/1.7 m2 GFR Estimate If >90 >60 [place] Black mL/min/1.7 m2 Calcium 8.4 (L) 8.5 - 10.4 [place] mg/dL Anion Gap 8 6 - 17 [place] mmol/L Specimen Anatomical Collection Method Collection Time Receive d Time (Source) Location / / Volume Laterality 03/19/2006 5:12 PM 6 5:04 CDT PM CDT Naga Price MD LAB - BLOOD ORDERABLES Performing Organization Address City/State/ZIP Code Phon e Number MISYS documented in this encounter Visit Diagnoses Not on filedocumented in this encounter
--- OUTSIDE RECORDS SUMMARY | 2022-04-05 08:04 | XMS_ITS | Encounter Summary ---
:1940 Author Organization [place] Address [address] [facility] [place] [address] Care Team Providers Name Role Phone Unavailable Primary Care Provider Unavailable Encounter Details Date Type Department Care Team Description 03/17/2006 Historic Results INTERFACED REPORT Rona Powell MD [facility] [place] [address] [facility] [address] [place] [address] Social History Tobacco Use Types Packs/Day Years Used Date Never Assessed Sex Assigned at Date Recorded Not on file documented as of this encounter Plan of Treatment Not on filedocumented as of this encounter Procedures Procedure Name Priority Date/Time Associated Diagnosis Comme nts POTASSIUM Routine 03/17/2006 7:05 AM Results f or this CDT procedure are i n the results section . PHOSPHORUS Routine 03/17/2006 7:05 AM Results f or this CDT procedure are i n the results section . MAGNESIUM Routine 03/17/2006 7:05 AM Results f or this CDT procedure are i n the results section . documented in this encounter Results Magnesium (03/17/2006 7:05 AM CDT) athologist Signature Magnesium 2.3 1.6 - 2.3 [place] mg/dL Specimen (Source) Anatomical Collection Method Collection Time Re ceived Time Location / / Volume Laterality 03/17/2006 7:05 AM 6 CDT Patric Powell MD LAB - BLOOD ORDERABLES Performing Organization Address City/State/ZIP Code Phon e Number [place]IS[place] Phosphorus (03/17/2006 7:05 AM CDT) P athologist Signature Phosphorus 3.7 2.5 - 4.5 [place] mg/dL Specimen (Source) Anatomical Collection Method Collection Time Re ceived Time Location / / Volume Laterality 03/17/2006 7:05 AM 6 CDT Patric Powell MD LAB - BLOOD ORDERABLES Performing Organization Address City/[facility] Phon e Number MISYS Potassium (03/17/2006 7:05 AM CDT) P athologist Signature Potassium 4.1 3.4 - 5.3 [place] mmol/L Specimen Anatomical Collection Method Collection Time Receive d Time (Source) Location / / Volume Laterality 03/17/2006 7:05 AM 6 CDT 11:46 AM CDT Patric Powell MD LAB - BLOOD ORDERABLES Performing Organization Address City/[facility] Phon e Number MISYS documented in this encounter Visit Diagnoses Not on filedocumented in this encounter
--- OUTSIDE RECORDS SUMMARY | 2022-04-05 08:04 | XMS_ITS | Encounter Summary ---
:1940 Author Organization [place] Address [address] [facility] [place] [address] Care Team Providers Name Role Phone Unavailable Primary Care Provider Unavailable Encounter Details Date Type Department Care Team Description 03/13/2006 Operative Report Yaron Burrell MD (It Engineer) [facility] [place] [address] [facility] [address] [place] [address] Social History Tobacco Use Types Packs/Day Years Used Date Never Assessed Sex Assigned at Date Recorded Not on file documented as of this encounter Progress Notes Interface, It Engineer - 03/13/2006 1:28 PM CDT PRELIMINARY PREOPERATIVE DIAGNOSIS: Cecal lesion. POSTOPERATIVE DIAGNOSIS: Cecal lesion. PROCEDURE: Right hemicolectomy, lysis of adhesions and repair of incisional hernia. SURGEON: Anna Burrell MD PENCIL MAKER: BISMARK Xiong ANESTHESIA: General. INDICATIONS FOR OPERATION: A 66-year-old male underwent colonoscopy, where a large cecal lesion wasidentified. Risks and benefit of operation were explained to the patient. He appeared to understand.In addition, the patient has an incisional hernia from a right subcostal incision for open cholecystectomy many years ago. Repair of the hernia was explained to the patient. He appeared to understand. DESCRIPTION OF PROCEDURE: The patient was placed supine. After induction of anesthesia, the abdomenwas prepped with Hibiclens, sterile drapes applied. Midline incision was made. Upon entering the peritoneal space, there were dense adhesions throughout. Over an hour time was necessary to dissect the small bowel and colon from the margins of his incisional hernia. Palpation of the cecum revealed a soft mass. The lateral attachments of the colon were taken down. The colon was mobilized to the hepaticflexure. Luis clamp placed across the ascending colon and terminal ileum. The mesentery was incised. Dissection of ileocolic vessel back was carried out, and the vessels taken down and ligated between ties of 2-0 Ethibond. Remainder of the mesenteric vessels were taken down and ligated between ties of 3-0 Vicryl, and specimen passed from the field. Primary anastomosis was carried out between the terminal ileum and colon using interrupted 3-0 silk for the posterior row, running 3-0 PDS for the inner row, and interrupted 3-0 silk for the anterior row. The abdomen was irrigated. Hemostasis appeared good. Mesenteric defect closed with interrupted 3-0 silk. The margins of the previous incisional hernia were excised and closed from the peritoneal side with #1 PDS. Midline fascia was then closed with #1 PDS and skin with Insorb staple. The patient tolerated the procedure well. Sponge count and needle count were correct. Blood loss was minimal. The patient was transferred to the recovery room in stable condition. ANNA BURRELL MD MT: [id number] Name: DONALDO BAUTISTA MRN: [id number] Account: [id number] : 1940 Procedure Date: 03/13/2006 Document: [id number] cc: Abhijit Elias MD documented in this encounter Plan of Treatment Not on filedocumented as of this encounter Visit Diagnoses Not on filedocumented in this encounter
--- OUTSIDE RECORDS SUMMARY | 2022-04-05 08:04 | XMS_ITS | Encounter Summary ---
:1940 Author Organization [place] Address [facility] [place] [address] Care Team Providers Name Role Phone Zen Rousseau MD Unavailable Zen Rousseau MD Primary Care Provider Mckenzie Mayorga MD Primary Care Provider Luis Alberto Hernandez MD Primary Care Provider Mckenzie Mayorga MD Primary Care Provider Senthil Mckeon MD Primary Care Provider [phone] Ta Trimble MD Unavailable [phone] Ronnie Myers Primary Care Provider Mali Dowd APRN, CNP Unavailable Encounter Details Date Type Department Care Team Description 03/03/2002 Office Visit-[facility] Heart Unknown, Zact MD dillon [address] [place] [address] Social History Tobacco Use Types Packs/Day Years Used Date Never Assessed Sex Assigned at Date Recorded Not on file documented as of this encounter Progress Notes Unknown, DoctorMD - 06/13/2004 3:19 PM CST DATE: 03/03/2002 BAUTISTA DONALDO DATE OF : 1940 AGE: [age] years old Referring Physician: ELEAZAR MAXWELL,GERONIMO JOHNSON CURRENT DIAGNOSES 1. - Chest Pain-unspecified, 786.50 2. - Shortness of Breath, 786.05 ALLERGIES Penicillins, Itching and rash MEDICATIONS 1. Pravachol 40 mg, 1 p.o. q.d. 2. Advair 500/50 3. Aspirin 325 mg, 1 p.o. q.d. CHIEF COMPLAINTS Follow up stress test and Followup of - Chest Pain-unspecified HISTORY OF PRESENT ILLNESS Mr. Bautista is seen today, accompanied by his and his daughter. He is a 62-year-old male who overthe last five years has noticed increasing problems with shortness of breath with exertion. His wifewould say that his dyspnea has probably been longer than that. He is concerned about heart disease because three out of his four male siblings have either had bypass surgery or heart attacks, and his sister has also had some sort of cardiovascular problems. He had an episode of numbness in his arms atone time and became alarmed about his heart and was sent for a stress echo that was technically difficult, and then a nuclear isotope stress test that was interpreted as being normal. He had a friend who also had severe dyspnea and was found to have lots of blockages, and therefore he has wondered about his own condition. This patient quit smoking 15 years ago, but previous to that was a three pack per day smoker. He gained 50 pounds when he quit smoking and has not managed to lose any even though his weight has flattened off. He has been on antilipidemic therapy for two or three years, initially on Baycol and now on Pravachol, but he does not know how well his cholesterol is controlled. He has not had hypertension ordiabetes. He has had some rudimentary pulmonary testing where he says that his lung capacity is reduced, but specific details are unknown. He is on Advair which he says sometimes helps. He does not know specifically whether he has emphysema or not. He denies any problems with peripheral edema, orthopnea, or cough, and has had no symptoms of heart failure. He denies any arrhythmic sensations. He has never had any chest pain per se. He used to drink a fair amount but has also quit. His would say that his diet is terrible, where he consumes regular soda pop, loves greasy fried food, loves steaks with gravy, and will commonly have a big bowl of ice cream. His , on the other hand, exercises for hours every day, is lean and fit, and can walk for hours all day while taking care of their grandchildren. PAST HISTORY Past Medical Illnesses: hypercholesterolemia Cardiology Procedures-Noninvasive: echocardiogram February 2002, treadmill cardiolite February 2002 Left Ventricular Ejection Fraction: 58% per cardiolite% FAMILY HISTORY: Father - Age 71, unknown; [...] but quit and 1984; Diet - regular diet; Exercise - no regular exercise; REVIEW OF SYSTEMS GENERAL denies recent weight loss, weight gain, fever or chills or change in exercise tolerance. INTEGUMENTARY denies any change in hair or nails, rashes, or skin lesions. EYES wears eye glasses/contact lenses EARS, NOSE, THROAT, MOUTH denies any hearing loss, epistaxis, hoarseness or difficulty speaking. RESPIRATORY wheezing and shortness of breath with exertion CARDIOVASCULAR burning feeling in the chest ABDOMINAL denies ulcer disease, hematochezia or melena. MUSCULOSKELETAL pain in legs NEUROLOGICAL denies any history of recurrent strokes, TIA, or seizure disorder. PSYCHIATRIC denies any history of depression, substance abuse or change in cognitive functions. ENDOCRINE denies any history of weight change, heat/cold intolerance, polydipsia, or polyuria HEMATOLOGICAL/IMMUNOLOGIC denies any food allergies, seasonal allergies, bleeding disorders. PHYSICAL EXAMINATION VITAL SIGNS: Blood Pressure: 146/80 Sitting, Right arm, large cuff Pulse- 80.00/min. Weight- 228.40 lbs. Height- .00 Temperature- .00 CONSTITUTIONAL in no acute distress, appears older [...] increased A-P diameter, clear to auscultation CARDIAC no murmur present, regular rhythm ABDOMEN no hepatosplenomegaly, non-tender, moderately obese PERIPHERAL PULSES pulses full and equal in all extremities, no bruits auscultated. EXTREMITIES & BACK no clubbing, cyanosis or edema NEUROLOGICAL no gross motor deficits noted, affect appropriate, oriented to time, person and place. MEDICATIONS UPDATED TODAY: Pravachol 40 mg, 1 p.o. q.d., #30 Advair 500/50 Aspirin 325 mg, 1 p.o. q.d., 0 IMPRESSIONS/PLAN IMPRESSION: 1. Dyspnea, multifactorial, undoubtedly related to a tremendous element of deconditioning with his sedentary lifestyle. 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 His diet is terrible, and his calorie consumption is far too excessive. I was happy totell him that his nuclear stress test gives us an 85% confidence level that he does not have any significant coronary artery disease, and certainly there is no evidence for such bad vascular disease that it would cause sufficient ischemia to give him dyspnea as an anginal equivalent. All of these things are quite favorable. However, because he is unhappy with his current level of respiratory capacity, I told him at the very least he needs to get his weight down by lowering his calorie intake, and wetalked a lot about Weight Watchers and how he could accomplish weight loss with just a reduction of 200 calories per day. We also talked about exercise programs and they have an exercise bicycle, and there is plenty of room to walk around where they live. He is concerned that his legs tighten up on him, but his peripheral circulation is excellent, and I do not think he has claudication. Formal pulmonary testing may also be helpful as he probably does have more emphysematous lung disease than he appreciates. 2.I have not made any follow up appointments for him as there is not a specific cardiac issue that needs to be followed up with. He may very well need some help with dietary counseling through a Weight Watchers program. Again, his is very knowledgeable about all of the right things to do,but of course it is difficult for her to get her to change his lifestyle. Document electronically signed by : Luis Alberto Massey M.D. Date : 06/13/2004 Time : 3:19:08 PM documented in this encounter Plan of Treatment Not on filedocumented as of this encounter Visit Diagnoses Not on filedocumented in this encounter Care Teams Ladies Underwear Operator Relationship Specialty Start Date End Date Zen Rousseau MD PCP - General Family Practice 08/01/12 08/09/[address] [facility] [address] [place] [address] [phone] Mckenzie Mayorga MD PCP - General 08/10/15 10/09/[address] [address] Luis Alberto Hernandez MD PCP - General Family Practice 10/10/15 07/25/16 Mckenzie Mayorga MD PCP - General 07/26/16 12/02/18 [facility] [address] [place], [place] [id number] Senthil Mckeon, PCP - General 12/03/18 Ronnie Myers PCP - General Family Medicine 09/11/21 [facility] [address] [place], [place] [phone] Zen Rousseau MD MD Family Practice 07/31/[address] [facility] [address] [place] [address] [phone] Ta Trimble Assigned Heart and 05/27/20 2 MD [facility] Provider [address] [place] [address] Mali Dowd APRN CNP Assigned Heart and 10/08/21 [address] Vascular Provider ISABELLABEV [id number] documented as of this encounter
--- OUTSIDE RECORDS SUMMARY | 2022-04-05 08:04 | XMS_ITS | Encounter Summary ---
:1940 Author Organization [place] Address [address] [facility] [place] [address] Care Team Providers Name Role Phone Unavailable Primary Care Provider Unavailable Encounter Details Date Type Department Care Team Description 03/13/2006 Consultation [facility] Sidney haas MD [facility] [address] [place] [address] [phone] (Wo rk) Social History Tobacco Use Types Packs/Day Years Used Date Never Assessed Sex Assigned at Date Recorded Not on file documented as of this encounter Progress Notes Interface, Health Teacher - 03/14/2006 3:21 PM CDT PRELIMINARY I have been asked to see the patient by Dr. Powell to manage his medical issues postoperatively. HISTORY OF PRESENT ILLNESS: The patient is a 66-year-old gentleman with history of dyslipidemia andseasonal allergies with reactive airway disease who presents for scheduled colectomy following colonoscopy by Dr. Elias several days prior to admission that revealed a cecal mass. The patient underwent biopsy of polyps noted on a colonoscopy that revealed a tubular adenomas. The patient shortly thereafter saw Dr. Powell in Clinic. Surgery was to arrange for a day prior to consultation. He underwent right hemicolectomy, lysis of adhesions and repair of an incisional hernia from a prior cholecystectomy. His intraoperative and postoperative course have been unremarkable. He had vital signs essentially within normal limits during this course. He has already been up ambulating. NG is in place. We are waiting return of postop bowel function following surgery. He is without complaints at this time, no shortness of breath, cough, nausea, vomiting. He is not passing stool, flatus or gas at this time. His pain control is adequate. He is receiving TPN. He is on Cefotan and insulin sliding scale. Vital signs postoperatively have been reasonable though he has been slightly hypertensive postoperatively with his systolic pressures in the 150-160 range today. Prior to surgery, patient denies any constitutional symptoms such as weight loss, malaise and fevers, sweats, no GI bleeding, bloody stools, dysphag ia or odynophagia. He has had some dyspnea on exertion but this has been stable for approximately 10years. He denies any chest pressure, angina or known prior history of cardiopulmonary disease. However, he does have seasonal allergies with reactive airway disease and has been prescribed an inhaler in the past. He does have cardiac risk factors include age and dyslipidemia, moderate obesity. No history of type 2 diabetes or known coronary artery disease. He quit smoking 20 years ago. PAST SURGICAL HISTORY: Appendectomy and cholecystectomy. PAST MEDICAL HISTORY: 1. Colonic polyp removal 7 years ago. 2. Dyslipidemia. 3. Gastroesophageal reflux disease, well controlled on wwag-qnw-ehpulvz medications. 4. Seasonal allergies with reactive airway disease. ALLERGIES: Penicillin. FAMILY HISTORY: Father with asthma. Brother with asthma. MEDICATIONS: An outpatient basis he takes gosq-ssa-khyxfrk medication for his gastroesophageal reflux disease and takes Pravachol 40 mg at bedtime SOCIAL HISTORY: Lives with his . 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 He is . He quit smoking 20 years ago, quit drinking alcohol 18 years ago, no illicit drugs. REVIEW OF SYSTEMS: CARDIOVASCULAR: No chest pain. He has some stable shortness of breath. No known hypertension. RESPIRATORY: No cough, shortness of breath, wheezing, currently and post-preoperatively. GASTROINTESTINAL:See HPI. No dysphagia, odynophagia, abdominal pain, nausea, vomiting, diarrhea. RENAL: No urinary frequency, urgency, dysuria, hematuria. HEMATOLOGIC: No history of DVT, pulmonary emboli. DERMATOLOGIC: No rash. ENDOCRINE: No unexplained sweats, tremors or weight loss. No known thyroid disease or diabetes. MUSCULOSKELETAL: He notes some right ankle pain where he twisted his ankle quote. This is now resolved. No focal new joint pain or joint swelling. NEUROLOGIC: No syncope, focal paresthesias, weakness, visual changes, headache or syncope. PHYSICAL EXAMINATION: VITAL SIGNS: Blood pressure 166/86. Pulse 92, respiratory rate 16, temperature 97.6, O2 sat 93% on room air. GENERAL: The patient is alert and oriented in no acute distress. He is moderately obese. HEENT: Pupils equal, round, reactive to light and accommodating, normal sclerae, normal oropharynx. NG in place. NECK: Thick. LUNGS: Clear to auscultation bilaterally. CARDIOVASCULAR: Regular rate and rhythm, no rubs, gallops or murmurs appreciated. ABDOMEN: Decreased bowel sounds. The wound bandage in place with no discharge. Soft, distended and obese. LYMPHATICS: No cervical, supraclavicular or axillary lymphadenopathy. EXTREMITIES: Lower extremities, skin is warm, dry and intact. Pedal pulses present, no rash, no edema. NEUROLOGIC: Nonfocal. Toes downgoing bilaterally. Strength 5/5 in extremities x4. Normal tone. Noabnormal movements. He is alert and oriented and appropriate. Cranial nerves II-XII grossly intact. LABORATORY DATA: Calcium 8.2, sodium 137, potassium 4, bicarbonate 26, chloride 103, hemoglobin on the 4th of this month is 14.4 and prior liver function tests were normal. EKG reviewed by myself shows normal sinus rhythm without ischemic changes. ASSESSMENT AND PLAN: 1. Status post right hemicolectomy, lysis of adhesions and repair of incisional hernias. He is postoperative day #1. Management per surgery service including pain control and advancing diet and management of angioma. 2. Cardiac. The patient's cardiac risk factors for postoperative cardiac complications include age, obesity, dyslipidemia. He does not have any high risk factors such as known coronary artery disease, type 2 diabetes, or smoking. Overall, I would say he has a lower risk category for postoperative cardiac events and I am inclined not to prescribe a postoperative beta-annemarie for this gentleman, particularly given his especially given his history of reactive airway disease. We will provide p.r.n. enalapril or p.r.n. enalapril for any significant hypertension postoperatively we will control his pain. 3. Deep venous thrombosis prophylaxis patient is already ambulatory will encourage upas able. 4. Renal will check a creatinine given his age and he is on Toradol. He does no appear volume overloaded. Urine output is excellent. SIDNEY ALFONSO MD MT: [id number] Name: DONALDO BAUTISTA Account: [id number] : 1940 Consult Date: 03/13/2006 Document: [id number] cc: Patric Rousseau MD documented in this encounter Plan of Treatment Not on filedocumented as of this encounter Visit Diagnoses Not on filedocumented in this encounter
--- OUTSIDE RECORDS SUMMARY | 2022-04-05 08:04 | XMS_ITS | Encounter Summary ---
:1940 Author Organization [place] Address [address] [facility] [place] [address] Care Team Providers Name Role Phone Unavailable Primary Care Provider Unavailable Encounter Details Date Type Department Care Team Description 03/16/2006 Historic Results INTERFACED REPORT Rona Powell MD [facility] [address] [facility] [address] [place] [address] Social History Tobacco Use Types Packs/Day Years Used Date Never Assessed Sex Assigned at Date Recorded Not on file documented as of this encounter Plan of Treatment Not on filedocumented as of this encounter Procedures Procedure Name Priority Date/Time Associated Diagnosis Comme nts GLUCOSE BY METER Routine 03/16/2006 11:28 AM Resu lts for this CDT procedure are i n the results section. ELECTROLYTE PANEL Routine 03/16/2006 7:09 AM Resu lts for this CDT procedure are i n the results section. CALCIUM Routine 03/16/2006 7:09 AM Results f or this CDT procedure are i n the results section. GLUCOSE BY METER Routine 03/16/2006 6:19 AM Resul ts for this CDT procedure are i n the results section. GLUCOSE BY METER Routine 03/16/2006 12:53 AM Resu lts for this CDT procedure are i n the results section. documented in this encounter Results (ABNORMAL) Glucose by meter (03/16/2006 11:28 AM CDT) P athologist Signature Glucose 126 (H) 60 - 110 [place]IS[place] mg/dL Specimen Anatomical Collection Method Collection Time Receive d Time (Source) Location / / Volume Laterality 03/16/2006 11:28 03/16/2006 AM CDT 11:35 AM CDT Patric Powell MD LAB - BEAKER POCT Performing Organization Address City/State/ZIP Code Phon e Number MISYS (ABNORMAL) Electrolyte panel (03/16/2006 7:09 AM CDT) P athologist Signature Sodium 136 133 - 144 [place] mmol/L Potassium 4.3 3.4 - 5.3 [place] mmol/L Chloride 102 94 - 109 [place] mmol/L Carbon Dioxide 29 20 - 32 [place] mmol/L Anion Gap 5 (L) 6 - 17 [place] mmol/L Specimen (Source) Anatomical Collection Method Collection Time Re ceived Time Location / / Volume Laterality 03/16/2006 7:09 AM 6 CDT Patric Powell MD LAB - BLOOD ORDERABLES Performing Organization Address [facility] Phon e Number MISYS (ABNORMAL) Calcium (03/16/2006 7:09 AM CDT) P athologist Signature Calcium 8.4 (L) 8.5 - 10.4 MIS[place] mg/dL Specimen (Source) Anatomical Collection Method Collection Time Re ceived Time Location / / Volume Laterality 03/16/2006 7:09 AM 6 CDT Patric Powell MD LAB - BLOOD ORDERABLES Performing Organization Address [facility] Phon e Number MISYS (ABNORMAL) Glucose by meter (03/16/2006 6:19 AM CDT) P athologist Signature Glucose 130 (H) 60 - 110 [place]IS[place] mg/dL Specimen Anatomical Collection Method Collection Time Receive d Time (Source) Location / / Volume Laterality 03/16/2006 6:19 AM 6 7:20 CDT AM CDT Patric Powell MD LAB - BEAKER POCT Performing Organization Address City/[facility] Code Phon e Number MISYS (ABNORMAL) Glucose by meter (03/16/2006 12:53 AM CDT) P athologist Signature Glucose 139 (H) 60 - 110 MIS[place] mg/dL Specimen Anatomical Collection Method Collection Time Receive d Time (Source) Location / / Volume Laterality 03/16/2006 12:53 03/16/2006 7:20 AM CDT AM CDT Patric Powell MD [facility] POCT Performing Organization Address City/State/ZIP Code Phon e Number MISYS documented in this encounter Visit Diagnoses Not on filedocumented in this encounter
--- OUTSIDE RECORDS SUMMARY | 2022-04-05 08:04 | XMS_ITS | Encounter Summary ---
:1940 Author Organization [place] Address [address] [facility] [address] Care Team Providers Name Role Phone Zen Rousseau MD Unavailable Zen Rousseau MD Primary Care Provider Mckenzie Mayorga MD Primary Care Provider Luis Alberto Hernandez MD Primary Care Provider Encounter Details Date Type Department Care Team Description 03/02/2002 Historic Results [facility] Heart Unknown, [address] [place] [phone] Social History Tobacco Use Types Packs/Day Years Used Date Never Assessed Sex Assigned at Date Recorded Not on file documented as of this encounter Plan of Treatment Not on filedocumented as of this encounter Procedures Procedure Name Priority Date/Time Associated Diagnosis Comme nts NUCLEAR CARDIAC - HIM 03/02/2002 12:00 AM CDT SCAN - ARCHIVE documented in this encounter Results NUCLEAR CARDIAC - HIM SCAN - ARCHIVE (03/02/2002 12:00 AM CDT) Specimen (Source) Anatomical Location Collection Method / Collectio n Time Received Time / Laterality Volume 03/02/2002 Narrative This result has an attachment that is no t available. Provider Scan IMG NM ORDERABLES documented in this encounter Visit Diagnoses Not on filedocumented in this encounter Care Teams Pile Header Relationship Specialty Start Date End Date Zen Rousseau MD PCP - General Family Practice 08/01/12 08/09/[address] [place] [address] Mckenzie Mayorga MD PCP - General 08/10/15 10/09/[address] [address] Luis Alberto Hernandez MD PCP - General Family Practice 10/10/15 07/25/16 Zen Rousseau MD MD Family Practice 07/31/[address] [phone] documented as of this encounter
--- OUTSIDE RECORDS SUMMARY | 2022-04-05 08:04 | XMS_ITS | Encounter Summary ---
:1940 Author Organization [place] Address [address] [facility] [place] [address] Care Team Providers Name Role Phone Unavailable Primary Care Provider Unavailable Encounter Details Date Type Department Care Team Description 03/13/2006 Discharge Summary Patrice Burrell MD (Ins[employer]ies [employer]) [facility] [place] [address] [facility] [address] [place] [address] Social History Tobacco Use Types Packs/Day Years Used Date Never Assessed Sex Assigned at Date Recorded Not on file documented as of this encounter Progress Notes Interface, [employer]semblies [employer] Installations - 04/07/2006 8:55 PM CDT PRELIMINARY PREOPERATIVE DIAGNOSIS: Cecal lesion. POSTOPERATIVE DIAGNOSIS: Cecal lesion. SURGICAL INDICATIONS: Donaldo Bautista is a 66-year-old male who underwent colonoscopy where a large cecal mass was identified. Risks, benefits of operation were explained to the patient and he also had incisional hernia from right subcostal incision from open cholecystectomy many years ago. Therefore, po ssible repair of this hernia was also explained to the patient and to be done at the same time as the procedure. The patient consented to surgery, therefore on 03/13/06; the patient underwent operative procedure including right hemicolectomy and lysis of adhesions and repair of incisional hernia from previous open cholecystectomy. This was done under general anesthesia with blood loss being minimal. The patient tolerated the procedure well and was transferred to recovery in good condition. POSTOPERATIVE COURSE: The patient was initially on IV pain medication and antibiotics as appropriate. He also had an NG in place. He also had TPN initially after surgery. He did have slow resolution of postoperative ileus with discontinuance of the NG on 03/18/06. At that point his diet was advanced and the patient did tolerate this well. He slowly had return of bowel activity and was able to increase his activity and walking. By 03/21/06 the patient was doing well, having bowel movements and eating and was ambulating well, no nausea or vomiting and was having good healing of this incision. Therefore, the patient was okayed for discharge to home with discharge medication including Percocet. He was given instruction as to activity and weight restrictions, care of his incision, use of outpatient oral pain medication and also to see Dr. Burrell at his office in approximately 2 weeks for regular postoperative check. The patient was also recommended to call prior to that appointment if he had other questions or concerns. 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 Surgical margins were without abnormalities. Ten lymph nodes were negative for malignancy; one lymph node was noted to have non necrotizing granulomas. ANNA BURRELL MD As dictated by LAMIN POSADA PA-C MT: [id number] Name: DONALDO BAUTISTA Account: [id number] : 1940 Admit Date: Discharge Date: 03/21/2006 Document: [id number] cc: Abhijit Elias MD documented in this encounter Plan of Treatment Not on filedocumented as of this encounter Visit Diagnoses Not on filedocumented in this encounter
--- OUTSIDE RECORDS SUMMARY | 2022-04-05 08:04 | XMS_ITS | Encounter Summary ---
:1940 Author Organization [place] Address [address] [facility] [place] [address] Care Team Providers Name Role Phone Unavailable Primary Care Provider Unavailable Encounter Details Date Type Department Care Team Description 03/20/2006 Historic Results [facility] Valerio Price, Hospitalists [address] [place], [place] [id number] [phone] Social History Tobacco Use Types Packs/Day Years Used Date Never Assessed Sex Assigned at Date Recorded Not on file documented as of this encounter Plan of Treatment Not on filedocumented as of this encounter Procedures Procedure Name Priority Date/Time Associated Comments Diagnosis HEMOGRAM DIFFERENTIAL Routine 03/20/2006 7:15 AM Results for this AND PLATELET CDT procedure are i n the results section. BASIC METABOLIC PANEL Routine 03/20/2006 7:15 AM Results for this CDT procedure are i n the results section. documented in this encounter Results (ABNORMAL) Hemogram differential and platelet (03/20/2006 7:15 AM CDT) [facility] Method Time Signature MCV 89 78 - 100 MISYS fl MCH 28.9 26.5 - MISYS 33.0 pg MCHC 32.4 32.0 - MISYS 36.0 g/dL RDW 12.5 10.0 - MISYS 15.0 % WBC 13.0 (H) 4.0 - MISYS 11.0 10e9/L RBC Count 4.54 4.4 - 5.9 MISYS 10e12/L Hemoglobin 13.1 (L) 13.3 - MISYS 17.7 g/dL Hematocrit 40.4 40.0 - MISYS 53.0 % % Neutrophils 48 40 - 75 % MISYS % Lymphocytes 39 20 - 48 % MISYS % Monocytes 10 0 - 12 % MISYS % Eosinophils 3 0 - 6 % MISYS % Basophils 0 0 - 2 % MISYS Platelet Count 290 150 - 450 MISYS 10e9/L Absolute 6.2 1.6 - 8.3 MISYS Neutrophil 10e9/L Absolute 5.1 0.8 - 5.3 MISYS Lymphocytes 10e9/L Absolute 1.2 0.0 - 1.3 MISYS Monocytes 10e9/L Absolute 0.4 0.0 - 0.7 MISYS Eosinophils 10e9/L Absolute 0.1 0.0 - 0.2 MISYS Basophils 10e9/L Diff Method Automated MISYS Method Specimen (Source) Anatomical Collection Method Collection Time Re ceived Time Location / / Volume Laterality 03/20/2006 7:15 AM 6 CDT Naga Price MD LAB - BLOOD ORDERABLES Performing Organization Address City/State/[facility] Phon e Number MISYS Basic metabolic panel (03/20/2006 7:15 AM CDT) P athologist Signature Sodium 140 133 - 144 MISYS mmol/L Potassium 3.6 3.4 - 5.3 MISYS mmol/L Chloride 102 94 - 109 MISYS mmol/L Carbon Dioxide 28 20 - 32 MISYS mmol/L Glucose 107 60 - 110 MISYS mg/dL Urea Nitrogen 13 7 - 30 MISYS mg/dL Creatinine 1.00 0.80 - MISYS 1.50 mg/dL GFR Estimate 79 >60 MISYS mL/min/1.7 m2 GFR Estimate If >90 >60 MISYS Black mL/min/1.7 m2 Calcium 8.5 8.5 - 10.4 MISYS mg/dL Anion Gap 10 6 - 17 MISYS mmol/L Specimen (Source) Anatomical Collection Method Collection Time Re ceived Time Location / / Volume Laterality 03/20/2006 7:15 AM 6 CDT Naga Price MD LAB - BLOOD ORDERABLES Performing Organization Address City/State/ZIP Code Phon e Number MISYS documented in this encounter Visit Diagnoses Not on filedocumented in this encounter
--- OUTSIDE RECORDS SUMMARY | 2022-04-05 08:04 | XMS_ITS | Encounter Summary ---
:1940 Author Organization [place] Address [facility] [place] [address] Care Team Providers Name Role Phone Unavailable Primary Care Provider Unavailable Encounter Details Date Type Department Care Team Description 03/04/2006 Historic Results INTERFACED REPORT Edna Le[place] [address] (Wo rk) Social History Tobacco Use Types Packs/Day Years Used Date Never Assessed Sex Assigned at Date Recorded Not on file documented as of this encounter Plan of Treatment Not on filedocumented as of this encounter Procedures Procedure Name Priority Date/Time Associated Diagnosis Comme [facility] HISTOPATHOLOGY Routine 03/04/2006 12:00 AM Result s for this CDT procedure are i n the results section . documented in this encounter Results Histopathology (03/04/2006 12:00 AM CDT) Component Value Ref Test Analysis Performed At [facility] Range Method Time Signature Copath Report CASE: [id number] ^ COPATH Patient Name: DONALDO BAUTISTA MR#: [id number] Specimen #: [id number] Collected: 03/04/2006 Received: 03/04/2006 Reported: 03/05/2006 13:42 Ordering Phy(s): EDNA LEZAMA Additional Phy(s): ELIZABETH MAYNARD SPECIMEN(S): Splenic flexure colon polyps FINAL DIAGNOSIS: Colon, splenic flexure, polypectomy - Tubular adenomas. Electronically signed out by: Krzysztof Schaefer M.D. CLINICAL HISTORY: History of polyps. GROSS: The specimen, labeled two polyps from splenic flexure, con sists of a 5 mm pink-gamez polyp and four 1 to 2 mm fragments. ??Totally em bedded in one cassette. ??SML/sg MICROSCOPIC: The specimen consists of multiple fragments of tubular adeno ma. SML/sg 03-05-06 TESTING LAB LOCATION: [facility] [address] [address] [place], [place] ??[address] COLLECTION SITE: Client: [facility] Location: ENDO (R) Specimen (Source) Anatomical Collection Method Collection Time Re ceived Time Location / / Volume Laterality 03/04/2006 03/05/2006 1:42 PM CDT Edna Lezama MD LAB - COPATH SPECIAL DIAG OR DERABLES Performing Organization Address City/State/ZIP Code Phon e Number COPATH documented in this encounter Visit Diagnoses Not on filedocumented in this encounter
--- OUTSIDE RECORDS SUMMARY | 2022-04-05 08:04 | XMS_ITS | Encounter Summary ---
:1940 Author Organization [place] Address [address] [place] [address] Care Team Providers Name Role Phone Unavailable Primary Care Provider Unavailable Encounter Details Date Type Department Care Team Description 03/14/2006 Historic Results INTERFACED REPORT Rona Powell MD [facility] [address] [facility] [address] [place] [address] Social History Tobacco Use Types Packs/Day Years Used Date Never Assessed Sex Assigned at Date Recorded Not on file documented as of this encounter Plan of Treatment Not on filedocumented as of this encounter Procedures Procedure Name Priority Date/Time Associated Diagnosis Comme nts GLUCOSE BY METER Routine 03/14/2006 8:49 PM Resul ts for this CDT procedure are i n the results section. GLUCOSE BY METER Routine 03/14/2006 4:25 PM Resul ts for this CDT procedure are i n the results section. GLUCOSE BY METER Routine 03/14/2006 11:52 AM Resu lts for this CDT procedure are i n the results section. ELECTROLYTE PANEL Routine 03/14/2006 7:00 AM Resu lts for this CDT procedure are i n the results section. CREATININE Routine 03/14/2006 7:00 AM Results f or this CDT procedure are i n the results section. CALCIUM Routine 03/14/2006 7:00 AM Results f or this CDT procedure are i n the results section. GLUCOSE BY METER Routine 03/14/2006 6:01 AM Resul ts for this CDT procedure are i n the results section. documented in this encounter Results (ABNORMAL) Glucose by meter (03/14/2006 8:49 PM CDT) P athologist Signature Glucose 120 (H) 60 - 110 MISYS mg/dL Specimen Anatomical Collection Method Collection Time Receive d Time (Source) Location / / Volume Laterality 03/14/2006 8:49 PM 6 9:00 CDT PM CDT Patric Powell MD LAB - BEAKER POCT Performing Organization Address [facility] Phon e Number MISYS (ABNORMAL) Glucose by meter (03/14/2006 4:25 PM CDT) P athologist Signature Glucose 145 (H) 60 - 110 MISYS mg/dL Specimen Anatomical Collection Method Collection Time Receive d Time (Source) Location / / Volume Laterality 03/14/2006 4:25 PM 6 4:40 CDT PM CDT Patric Powell MD LAB - BEAKER POCT Performing Organization Address [facility] Phon e Number MISYS (ABNORMAL) Glucose by meter (03/14/2006 11:52 AM CDT) P athologist Signature Glucose 131 (H) 60 - 110 MISYS mg/dL Specimen Anatomical Collection Method Collection Time Receive d Time (Source) Location / / Volume Laterality 03/14/2006 11:52 03/14/2006 AM CDT 12:15 PM CDT Patric Powell MD LAB - BEAKER POCT Performing Organization Address [facility] Phon e Number MISYS Electrolyte panel (03/14/2006 7:00 AM CDT) P athologist Signature Sodium 137 133 - 144 MISYS mmol/L Potassium 4.0 3.4 - 5.3 MISYS mmol/L Chloride 103 94 - 109 MISYS mmol/L Carbon Dioxide 26 20 - 32 MISYS mmol/L Anion Gap 8 6 - 17 MISYS mmol/L Specimen (Source) Anatomical Collection Method Collection Time Re ceived Time Location / / Volume Laterality 03/14/2006 7:00 AM 6 CDT Patric Powell MD LAB - BLOOD ORDERABLES Performing Organization Address [facility] Phon e Number MISYS (ABNORMAL) Calcium (03/14/2006 7:00 AM CDT) P athologist Signature Calcium 8.2 (L) 8.5 - 10.4 MISYS mg/dL Specimen (Source) Anatomical Collection Method Collection Time Re ceived Time Location / / Volume Laterality 03/14/2006 7:00 AM 6 CDT Patric Powell MD LAB - BLOOD ORDERABLES Performing Organization Address City/[facility] Phon e Number MISYS Creatinine (03/14/2006 7:00 AM CDT) P athologist Signature Creatinine 0.80 0.80 - MISYS 1.50 mg/dL GFR Estimate >90 >60 MISYS mL/min/1.7 m2 GFR Estimate If >90 >60 MISYS Black mL/min/1.7 m2 Specimen Anatomical Collection Method Collection Time Receive d Time (Source) Location / / Volume Laterality 03/14/2006 7:00 AM 6 3:02 CDT PM CDT Patric Powell MD LAB - BLOOD ORDERABLES Performing Organization Address City/[facility] Phon e Number MISYS (ABNORMAL) Glucose by meter (03/14/2006 6:01 AM CDT) P athologist Signature Glucose 155 (H) 60 - 110 MISYS mg/dL Specimen Anatomical Collection Method Collection Time Receive d Time (Source) Location / / Volume Laterality 03/14/2006 6:01 AM 6 6:15 CDT AM CDT Patric Powell MD LAB - BEAKER POCT Performing Organization Address City/State/ZIP [facility] Phon e Number MISYS documented in this encounter Visit Diagnoses Not on filedocumented in this encounter
--- OUTSIDE RECORDS SUMMARY | 2022-04-05 08:04 | XMS_ITS | Encounter Summary ---
:1940 Author Organization [place] Address [address] [facility] [place] [address] Care Team Providers Name Role Phone Zen Rousseau MD Unavailable Zen Rousseau MD Primary Care Provider Mckenzie Mayorga MD Primary Care Provider Luis Alberto Hernandez MD Primary Care Provider Encounter Details Date Type Department Care Team Description 02/13/2002 Historic Results [facility] Heart Unknown, [address] [place] [address] Social History Tobacco Use Types Packs/Day Years Used Date Never Assessed Sex Assigned at Date Recorded Not on file documented as of this encounter Plan of Treatment Not on filedocumented as of this encounter Procedures Procedure Name Priority Date/Time Associated Diagnosis Comme nts ECHO CARDIAC - HIM SCAN 02/13/2002 12:00 AM CDT - ARCHIVE documented in this encounter Results ECHO CARDIAC - HIM SCAN - ARCHIVE (02/13/2002 12:00 AM CDT) Specimen (Source) Anatomical Location Collection Method / Collectio n Time Received Time / Laterality Volume 02/13/2002 Narrative This result has an attachment that is no t available. Provider Scan CV ECHO ORDERABLES documented in this encounter Visit Diagnoses Not on filedocumented in this encounter Care Teams Tool Lathe Operator Relationship Specialty Start Date End Date Zen Rousseau MD PCP - General Family Practice 08/01/12 08/09/[address] [place] [address] Mckenzie Mayorga MD PCP - General 08/10/15 10/09/[address] [address] Luis Alberto Hernandez MD PCP - General Family Practice 10/10/15 07/25/16 Zen Rousseau MD MD Family Practice 07/31/[address] [address] documented as of this encounter
--- OUTSIDE RECORDS SUMMARY | 2022-04-05 08:04 | XMS_ITS | Encounter Summary ---
:1940 Author Organization [place] Address [address] [facility] [place] [address] Care Team Providers Name Role Phone Unavailable Primary Care Provider Unavailable Encounter Details Date Type Department Care Team Description 03/20/2006 Results Only [facility] Naga Pricer, Hospital Results [address] [place], [place] [address] (Wo rk) Social History Tobacco Use Types Packs/Day Years Used Date Never Assessed Sex Assigned at Date Recorded Not on file documented as of this encounter Plan of Treatment Not on filedocumented as of this encounter Procedures Procedure Name Priority Date/Time Associated Diagnosis Comme [facility] ECHO HEART Routine 03/20/2006 8:20 AM Results for this XTHORACIC,COMPLETE, CDT procedur e are in W/O DOPPLER the results section. documented in this encounter Results ECHO HEART,COMPLETE (03/20/2006 8:20 AM CDT) Specimen (Source) Anatomical Collection Method Collection Time Re ceived Time Location / / Volume Laterality 03/20/2006 8:20 AM CDT Impressions RADIOLOGY RESULTS - 03/25/2006 11:56 AM CDT ECHOCARDIOGRAM Tape #[id number] Technologist Initials: ??JT M-Mode (cm) __3.7_ ??LA (<4.0) __3.2_ ??Ao (<3.7) __5.0_ ??LVed (<5.6) __3.0_ ??LVes (variable) __1.5_ ??IVSd (<1.2) __1.5_ ??LVPWd (<1.2) _40.9_ ??FS (>25%) 60-65% EF (55-65%) Aortic Valve ??MARTHA (cm2) ??LVOT (cm) ??max PG (mmHg) ??mean PG (mmHg) ??max fredrick V1 (m/s) ??max fredrick V2 (m/s) ??P1/2t (msec) ?? Mitral Valve ??MVA (cm2) ??mean PG (mmHg) ??max PG (mmHg) Tricuspid Valve __21.6_ ??TR max fredrick (m/s) __18.7 _ ??mmHg+RAP=RVSP Pulmonary Valve ??mmHg+RAP=PAPed ?? INDICATION FOR PROCEDURE: ??Dyspnea, cou gh in a 66-year-old patient. 1. ??The aortic root is normal. ??The ao rtic valve is trileaflet. ?? There is very mild sclerosis of the aort ic leaflets. ??There is no aortic stenosis or aortic insufficiency. ?? 2. ??Both atria are normally sized and configured. 3. ??The mitral valve complex shows mil d thickening of the mitral leaflets. ??There is no mitral stenosis. ??There is trace mitral insufficiency. 4. ??Flow patterns across the mitral va lve support diastolic dysfunction of the left ventricle. 5. ??Imaging of the left ventricle show s nondilated chambers. ??There is moderate left ventricular hypertrophy . ??Left ventricular and right ventricular systolic function are normal . ??Left ventricular ejection fraction of 60-65% would be visually kinjal roximated. ??There are no wall motion abnormalities seen. ?? 6. ??The pulmonary outflow tract is nor mal with trivial pulmonic insufficiency. 7. ??The right ventricle, tricuspid florinda ve, and right atrium are normal. ??There is trace tricuspid regur gitation. ??The right ventricular systolic pressure is approxi mated at 19 mmHg plus right atrial pressure to give right ventricula r systolic pressure. ?? 8. ??No pleural or pericardial effusion is seen. This study shows left ventricular hyper trophy, diastolic dysfunction of the left ventricle, excellent left ve ntricular and right ventricular systolic function, trace collette ral regurgitation, trace tricuspid regurgitation, and sclerosis o f the aortic and mitral leaflets as noted above. Naga Price MD SPECIAL IMAGING STUDIES Performing Organization Address City/State/ZIP Code Phon e Number RADIOLOGY RESULTS documented in this encounter Visit Diagnoses Not on filedocumented in this encounter
[2022-04-05 18:00] LABS: Chloride* 100 mmol/L (96-114); Potassium* 4.2 mmol/L (3.6-5.1); Sodium* 135 mmol/L (135-149)
[2022-04-05 18:03] LABS: Blood Urea Nitrogen* 21 mg/dL (7-30); Carbon Dioxide* 26 mmol/L (20-32); Creatinine* 1.5 mg/dL (0.5-1.5); Estimated Glomerular Filt Rate 46 ml/min; Glucose* 137 mg/dL (60-115)
[2022-04-05 18:04] LABS: Calcium* 9.2 mg/dL (8.4-10.6)
== END 2022-04-05 14:08 | disposition home or self-care (01) ==
PROVIDERS: PCP Family Medicine; Visit Provider Family Medicine
DX: D64.9 Anemia, unspecified (principal); E11.9 Type 2 diabetes mellitus without complications
CPT/HCPCS: 80048

== ENCOUNTER 2022-07-09 14:15 | Outpatient (CLI) | payer MEDICARE, SELFPAY ==
--- OUTSIDE RECORDS SUMMARY | 2022-07-09 14:43 | XMS_ITS | Encounter Summary ---
:1940 Author Organization [facility] Address [address] [place] [address] Care Team Providers Name Role Phone Zen Rousseau MD Unavailable Ronnie Myers Primary Care Provider Mali Dowd APRN, CNP Unavailable Reason for Referral Rehab Therapy Physical Therapy (Priority: 1-2 Weeks) - Pending Review Specialty Diagnoses / Procedures Referred By Contact Refer red To Contact Diagnoses Acute bilateral low back pain without sciatica Ryann Lim PA-C [address] [place] [address] Referral ID Status Reason Start Date Expiration Date Visits V isits Requested Authorized [id number] Pending 06/19/2022 06/19/2023 1 1 Review NG PRESS OPERATOR Reason for Visit Reason Comments Back Pain Encounter Details Date Type Department Care Team Description 06/19/2022 [facility] Fany Okeefe MD [facility] [address] [place], [place] [id number] Chest pain, unspecified type; [facility] [address] [place] [address] Acute bilateral low back pain without sc iatica; Dept Essential hypertension [address] [place] [address] Social History Tobacco Use Types Packs/Day Years Used Date Smoking Tobacco: Former Smokeless Tobacco: Never Comments: quit about 30 years ago Alcohol Use Standard Drinks/Week Comments Yes 0 (1 standard drink = 0.6 oz pure alcoho l) rare Sex Assigned at Date Recorded Not on file COVID-19 Exposure Response Date Recorded In the last 10 days, have you been in contact No / Unsure 06/19/2022 10:48 AM BALING PRESS OPERATOR with someone who was confirmed or suspected to have Coronavirus/COVID-19? documented as of this encounter Last Filed Vital Signs Vital Sign Reading Time Taken Comments Blood Pressure 162/74 06/19/2022 10:58 AM BALING PRESS OPERATOR Pulse 68 06/19/2022 10:58 AM BALING PRESS OPERATOR Temperature 36.7 ??C (98.1 ??F) 06/19/2022 10:58 AM BALING PRESS OPERATOR Respiratory Rate 18 06/19/2022 10:58 AM BALING PRESS OPERATOR Oxygen Saturation 100% 06/19/2022 10:58 AM BALING PRESS OPERATOR Inhaled Oxygen Concentration - - Weight 90.7 kg (200 lb) 06/19/2022 10:58 AM BALING PRESS OPERATOR Height 167.6 cm (5' 6) 06/19/2022 10:58 AM BALING PRESS OPERATOR Body Mass Index 32.28 06/19/2022 10:58 AM BALING PRESS OPERATOR documented in this encounter Discharge Instructions Discharge InstructionsRyann Lim PA-C - 06/19/2022 9:48 PM BALING PRESS OPERATOR You were admitted for concerns of low back pain w/o hx of trauma. You underwent CT abdominal pelvis along with back imaging that did not show any evidence of acute fracture but rather just degenerativejoint disease. He would benefit from a multimodal pain control therapy along with outpatient physical therapy. We recommend taking 1000 mg of Tylenol 3 times a day, as well as Robaxin a muscle relaxant 4 times aday, and lidocaine patch every 12 hours for the next 5- 7 days. For breakthrough pain you can take 25to 50 mg of tramadol every 4-6 hours as needed. We also recommend outpatient physical therapy. I will follow-up with your primary care provider in a week to make sure your back is improving. In regards to your chest pain couple days ago your history sounds atypical and it does not seem consistent with angina. Your EKG and troponin were not indicative of a heart attack. You do have moderatestenosis which is known and does not appear to be symptomatic. Follow-up with your primary care provider and as well as cardiology department in SeptemberOctober 2022 as previously planned. NG PRESS OPERATOR documented in this encounter Medications at Time of Discharge Medication Sig Dispensed Refills Start Date End Date albuterol (PROAIR Inhale 1-2 puffs into 0 HFA/PROVENTIL the lungs every 6 HFA/VENTOLIN HFA) 108 hours as needed for (90 Base) MCG/ACT shortness of breath / inhaler dyspnea or wheezing aspirin 81 MG tablet Take 81 mg by mouth 0 daily budesonide-formoterol Inhale 2 puffs into 0 (SYMBICORT) 80-4.5 the lungs 2 times MCG/ACT Inhaler daily Cyanocobalamin (VITAMIN Take 500 mcg by mouth 0 B 12 PO) daily ferrous gluconate Take 324 mg by mouth 0 (FERGON) 324 (38 Fe) MG daily (with tablet breakfast) furosemide (LASIX) 20 Take 1 tablet (20 mg) 90 tablet 3 09/2021 MG tabletIndications: by mouth daily Essential hypertension, Coronary artery disease involving [place] coronary artery of [place] heart without angina pectoris losartan (COZAAR) 50 MG Take 0.5 tablets (25 0 tabletIndications: mg) by mouth daily Essential hypertension metoprolol tartrate Take 1 tablet (25 mg) 180 tablet 3 10/04 (LOPRESSOR) 25 MG by mouth 2 times tabletIndications: daily Essential hypertension nitroglycerin Place 1 tablet (0.4 25 tablet 3 10/04/2015 (NITROSTAT) 0.4 MG SL mg) under the tongue tabletIndications: every 5 minutes as Coronary artery disease needed for chest pain involving [place] coronary artery of [place] heart without angina pectoris pantoprazole (PROTONIX) Take 40 mg by mouth 0 40 MG enteric coated every 48 hours tablet rosuvastatin (CRESTOR) Take 1 tablet (40 mg) 90 tablet 2 40 MG by mouth daily tabletIndications: Mixed hyperlipidemia, Coronary artery disease involving [place] coronary artery of [place] heart without angina pectoris acetaminophen (TYLENOL) Take 2 tablets (1,000 42 tablet 0 1 08/19/2021 06/26/2022 500 MG mg) by mouth 3 times tabletIndications: daily for 7 days Acute bilateral low back pain without sciatica Lidocaine (LIDOCARE) 4 Place 1 patch onto 5 patch 0 06/1906/24/2022 % PatchIndications: the skin every 24 Acute bilateral low hours for 5 days To back pain without prevent lidocaine sciatica toxicity, patient should be patch free for 12 hrs daily. methocarbamol (ROBAXIN) Take 1 tablet (500 28 tablet 0 06/0506/26/2022 500 MG mg) by mouth 4 times tabletIndications: daily for 7 days Acute bilateral low back pain without sciatica traMADol (ULTRAM) 50 MG Take 0.5-1 tablets 15 tablet 0 06/0506/22/2022 tabletIndications: (25-50 mg) by mouth Acute bilateral low every 4 hours as back pain without needed for severe sciatica pain or breakthrough pain documented as of this encounter Consult Notes Ryann Lim PA-C - 06/19/2022 10:50 PM CST [facility] Medicine Consult NAME: Sreedhar Bautista : 1940 Date of Admission: 06/19/2022 Assessment & Plan Sreedhar Bautista is a 82 year old male with history of HTN, CAD status post of stent placement, hx of moderate aortic stenosis, CKD, and who presents with low central back pain since last night. Denies trauma or radiculopathy. CT abd/pelvis negative and CT lumbar/thoracic spine also was negative for acute process but just DJD. Incidentally, he mentioned that he had sharp left sided CP 2 nights ago but took 2 nitroglycerin and pain went away. Work up in the ED showed normal labs. Trops were detectable and flat at 32 and 33. EKG shows Normal Sinus. I was asked to admit him for a cardiac work up. #Atypical CP Pt does have a hx of CAD s/p stent in OM in 2009. [facility] NUC (2017) showed no evidence of ischemia/infarction LVEF 77%. Recent ECHO (09/28/21) showed progressive of his aortic stenosis, now considered moderate (MARTHA 1.2 cm2, mean gradient 27 mmHg) LVEF 55-60%, mild ascending aorta dilatation, grade I diastolic dysfunction, normal RV function. He denies any hx of recent exertional angina, no RAHMAN but does admit to being pretty sedentary. - Pt denies any recurrent CP and his pain seems very atypical - He denies any hx of exertional dizziness, near syncope to suggest symptomatic aortic stenosis. - I don't think he needs additional cardiac work up at this time that would require admission elmo inlight of the fact that we don't have the capacity to perform Nuclear stress testing due to lack of isotope. In addition, he has plans for repeat ECHO in a couple of months as previously planned which Ithink is fine - If he has recurrent CP, come back to ED, or schedule outpt Nuclear Scan. #Low back pain - lumbago No fractures on CT, no c/o radiculopathy. Recommend multimodal pain control with schedule tylenol, robaxin, lidocaine patch and tramadol. - Outpt PT referral - Follow up with PCP in 1 week #All other medical issues stable, no changes to meds were made. Recommend discharge to home. Ryann Lim PA-C Primary Care Physician Ronnie Myers Chief Complaint Back pain History is obtained from the patient Discussed with Dr. Okeefe in the ED, full chart review including lab work, imaging, and vital signs were reviewed. History of Present Illness slade Bautista is a 82 year old male with history of HTN, CAD status post of stent placement, hx of moderate aortic stenosis, CKD, and who presents with low central back pain since last night. Denies trauma or radiculopathy. CT abd/pelvis negative and CT lumbar/thoracic spine also was negative for acute process but just DJD. Incidentally, he mentioned that he had sharp left sided CP 2 nights ago but took 2 nitroglycerin and pain went away. Work up in the ED showed normal labs. Trops were detectable and flat at 32 and 33. EKG shows Normal Sinus. I was asked to admit him for a cardiac work up. Past Medical History I have reviewed this patient's medical history and updated it with pertinent information if needed. Past Medical History: Diagnosis Date ??? CAD (coronary artery disease) mild/mod disease in RCA, IGNRID to OM2 ??? Colon polyps ??? High cholesterol ??? Hypertension ??? Myocardial infarction (H) ??? Past history of myocardial infarction 06/2010 Non QWave ??? SOB (shortness of breath) ??? Stented coronary artery x1 stent ??? Uncomplicated asthma Past Surgical History I have reviewed this patient's surgical history and updated it with pertinent information if needed. Past Surgical History: Procedure Laterality Date ??? [...] 06/2010 INGRID to OM2, RCA mild/mod disease Prior to Admission Medications Prior to Admission Medications Prescriptions Last Dose Informant Patient Reported? Taking? Cyanocobalamin (VITAMIN B 12 PO) 06/19/2022 Yes Yes Sig: Take 500 mcg by mouth daily albuterol (PROAIR HFA/PROVENTIL HFA/VENTOLIN HFA) 108 (90 Base) MCG/ACT inhaler Yes Yes Sig: Inhale 1-2 puffs into the lungs every 6 hours as needed for shortness of breath / dyspnea or wheezing aspirin 81 MG tablet 06/19/2022 Yes Yes Sig: Take 81 mg by mouth daily budesonide-formoterol (SYMBICORT) 80-4.5 MCG/ACT Inhaler 06/19/2022 at x1 Self Yes Yes Sig: Inhale 2 puffs into the lungs 2 times daily ferrous gluconate (FERGON) 324 (38 Fe) MG tablet 06/19/2022 Yes Yes Sig: Take 324 mg by mouth daily (with breakfast) furosemide (LASIX) 20 MG tablet 06/19/2022 No Yes Sig: Take 1 tablet (20 mg) by mouth daily losartan (COZAAR) 50 MG tablet 06/18/2022 at hs No No Sig: Take 1 tablet (50 mg) by mouth daily Patient taking differently: Take 25 mg by mouth daily losartan (COZAAR) 50 MG tablet Yes Yes Sig: Take 0.5 tablets (25 mg) by mouth daily metoprolol tartrate (LOPRESSOR) 25 MG tablet 06/19/2022 at x1 No Yes Sig: Take 1 tablet (25 mg) by mouth 2 times daily nitroglycerin (NITROSTAT) 0.4 MG SL tablet No Yes Sig: Place 1 tablet (0.4 mg) under the tongue every 5 minutes as needed for chest pain pantoprazole (PROTONIX) 40 MG enteric coated tablet 06/18/2022 at am Yes Yes Sig: Take 40 mg by mouth every 48 hours rosuvastatin (CRESTOR) 40 MG tablet 06/18/2022 at hs No Yes Sig: Take 1 tablet (40 mg) by mouth daily Facility-Administered Medications: None Allergies Allergies Allergen Reactions ??? Fish Oil Other (See Comments) Bloody noses ??? Penicillins Itching Social History I have reviewed this patient's social history and updated it with pertinent information if needed. Sreedhar Bautista reports that he has quit smoking. He has never used smokeless tobacco. He reports current alcohol use. He reports that he does not use drugs. Family History I have reviewed this patient's family history and updated it with pertinent information if needed. Family History Problem Relation Age of Onset ??? Diabetes Mother ??? Hypertension Mother ??? Asthma Father ??? Myocardial Infarction Brother ??? Cancer Brother ??? Myocardial Infarction Sister ??? Myocardial Infarction Brother ??? Myocardial Infarction Brother ??? Myocardial Infarction Brother ??? Myocardial Infarction Brother ??? Myocardial Infarction Sister ??? Colon Cancer No family hx of Review of Systems The 10 point Review of Systems is negative other than noted in the HPI or here. Physical Exam Temp: 98.1 ??F (36.7 ??C) Temp src: Temporal BP: (!) 162/74 Pulse: 68 Resp: 18 SpO2: 100 % O2 Device: None (Room air) Vital Signs with Ranges Temp: [98.1 ??F (36.7 ??C)] 98.1 ??F (36.7 ??C) Pulse: [68] 68 Resp: [18] 18 BP: (162)/(74) 162/74 SpO2: [100 %] 100 % 200 lbs 0 oz Constitutional: Awake, alert, no apparent distress. obese Eyes: Conjunctiva and pupils examined and normal. HEENT: Moist mucous membranes, normal dentition. Respiratory: Clear to auscultation bilaterally, no crackles or wheezing. Cardiovascular: Regular rate and rhythm, normal S1 and S2, and 2/5 murmur noted. GI: Soft, non-distended, non-tender, bowel sounds present. No rebound tenderness or guarding. Lymph/Hematologic: No anterior cervical or supraclavicular adenopathy. Skin: No rashes, no cyanosis, no edema. Musculoskeletal: No deformities noted. No erythema or tenderness. Moving all extremities. +TTP over the low central back. No radiculopathy, no LE weakness or paraesthesia. Neurologic: No focal deficits noted. Speech is clear. Coordination and strength grossly normal. Psychiatric: Appropriate affect. Data Data reviewed today: EKG sinus Imaging: Recent Results (from the past 24 hour(s)) XR Chest 2 Views Narrative EXAM: XR CHEST 2 VIEWS LOCATION: [facility] DATE/TIME: 06/19/2022 5:00 PM INDICATION: chest pain, recent covid COMPARISON: None. Impression IMPRESSION: Heart size and pulmonary vessels are normal. Very minimal interstitial prominence at lateral lung bases likely slight peripheral fibrosis. No focal consolidation or pleural effusion. CT Thoracic Spine w/o Contrast Narrative EXAM: CT THORACIC SPINE W/O CONTRAST LOCATION: [facility] DATE/TIME: 06/19/2022 5:46 PM INDICATION: lower thoracic back pain COMPARISON: 11/10/2016. TECHNIQUE: CT thoracic spine without contrast. Dose reduction techniques were performed. FINDINGS: There is good anatomic alignment of the thoracic spine. The vertebral body heights are well-maintained throughout. There are degenerative changes seen involving the mid to lower thoracic discspaces. These levels have a mild loss of height, endplate changes and syndesmophyte formations. There is no evidence of canal compromise or neural foraminal narrowing throughout the thoracic spine. The paraspinal soft tissues are unremarkable. The lungs visualized on this study are clear. Impression IMPRESSION: 1. Good anatomic alignment and vertebral body heights maintained. 2. No significant canal compromise or neural foraminal narrowing throughout thoracic spine. Lumbar spine CT w/o contrast Narrative EXAM: CT LUMBAR SPINE W/O CONTRAST LOCATION: [facility] DATE/TIME: 06/19/2022 5:47 PM INDICATION: lumbar back pain COMPARISON: 06/01/2014. TECHNIQUE: CT lumbar spine without contrast. Dose reduction techniques were used. FINDINGS: There are 5 lumbar type vertebral bodies. There is good anatomic alignment of the lumbar spine except for a slight retrolisthesis of L3 in relation to L4. The vertebral body heights are well-maintained throughout. There is no evidence of an acute lumbar spine fracture. The paraspinal soft tissues are unremarkable. The T12-L1 and the L1-L2 disc space levels have no significant canal compromise or neural foraminal narrowing. At the L2-L3 disc space level there is a moderate loss of disc space height along with endplate changes. There is a diffuse annular bulge more prominent to the right posterior lateral region. This along with the facet arthropathy leads to mild canal compromise, right neural lateral recess narrowing but the neural foramen are patent bilaterally. At the L3-L4 disc space level there is a mild loss of disc space height. There is a diffuse annular bulge more prominent to the right posterior lateral region. This along with the facet arthropathy leads to moderate canal compromise, bilateral lateral recess narrowing along with mild right neural foraminal narrowing and moderate left neural foraminalnarrowing. At the L4-L5 disc space level there is a diffuse annular bulge more prominent to the posterior lateral regions. This along with the facet arthropathy leads to moderate canal compromise, bilateral lateral recess narrowing and moderate bilateral neural foraminal narrowing. At the L5-S1 disc space level there is a normal disc space height. There is a small central disc protrusion but no evidence of canal compromise. There is mild facet arthropathy but the lateral recessesand the neural foramen are patent bilaterally. Impression IMPRESSION: 1. No evidence of lumbar spine fracture. 2. Slight retrolisthesis of L3 in relation to L4. 3. Degenerative disc disease with canal compromise and neural foraminal narrowing from the L2 through the L4-L5 disc space levels as described above. CT Abdomen Pelvis w Contrast Narrative EXAM: CT ABDOMEN PELVIS W CONTRAST LOCATION: [facility] DATE/TIME: 06/19/2022 5:49 PM INDICATION: Lower abdominal pain, midline lumbar pain. COMPARISON: None. TECHNIQUE: CT scan of the abdomen and pelvis was performed following injection of IV contrast. Multiplanar reformats were obtained. Dose reduction techniques were used. CONTRAST: 100 mL Isovue 370 FINDINGS: LOWER CHEST: Subpleural fibronodular infiltrates in the visualized lower lungs compatible with chronic interstitial lung disease. HEPATOBILIARY: Fatty liver. PANCREAS: Normal. SPLEEN: Normal. ADRENAL GLANDS: Normal. KIDNEYS/BLADDER: A few small cysts in the kidneys. No follow-up is needed. BOWEL: Normal. LYMPH NODES: Normal. VASCULATURE: Unremarkable. PELVIC ORGANS: Normal. MUSCULOSKELETAL: There is a small fat-containing upper abdominal left paramedian ventral hernia. Mild lumbar degenerative change. Impression IMPRESSION: 1. Small fat-containing upper abdominal left paramedian ventral hernia. No bowel obstruction. 2. No appendicitis. No urinary calculi or hydronephrosis. 3. No acute fracture. Recent Labs Lab 06/19/22 1629 WBC 12.4* HGB 13.0* MCV 92 PLT 181 NA 135* POTASSIUM 4.1 CHLORIDE 96* CO2 28 BUN 9.0 CR 1.11 ANIONGAP 11 BETHANY 9.2 GLC 117* ALBUMIN 3.6 PROTTOTAL 6.9 BILITOTAL 1.3* ALKPHOS 79 ALT 14 AST 24 Ryann Lim PA-C [facility] Medicine June 19, 2022 Securely message with the [employer] Console (learn more here) Text page via [facility] Paging/Directory NG PRESS OPERATOR documented in this encounter ED Notes Kris Lacey MD - 06/19/2022 2:45 PM CST Rapid Assessment Note History: Sreedhar Bautista is a 82 year old male who presents with back pain and hip pain. He reports pain all over his body 2 days ago, but increased low back and hip pain last night. He denies back problems, surgeries, or other back history. His [id number]-lm-[id number] says he is not able to move/walk as well. She alsonotes chest pressure 2 days ago that resolved after taking nitroglycerin. The patient denies falls, twisting, numbness or weakness in the legs, loss of control of bladder or bowels, abdominal pain, shortness of breath, vomiting, diarrhea, dysuria, kidney stone history, and chest pain since his episode2 days ago. Of note, he had COVID-19 two weeks ago and took Paxlovid. He has CKD stage 3. His familyreports a lingering cough, but say his other symptoms have resolved. Exam: General: Alert, interactive Cardiovascular: Well perfused. Regular rate and rhythm. Lungs: No respiratory distress, no accessory muscle use Abdomen: Soft with minimal lower quadrant tenderness bilaterally. MSK: Midline tenderness of the inferior thoracic and entire lumbar spine. Tenderness into the bilateral upper buttocks. Neuro: Moving all 4 extremities. No subjective numbness to light touch in lower extremities. 5 out of 5 strength in lower extremities. Skin: Warm, dry Psych: Normal affect Plan of Care: Will obtain EKG, blood work, chest x-ray, as well as CT scan of the abdomen and pelvis in the thoracic and lumbar spine. No red flag back pain symptoms at this time. I evaluated the patient and developed an initial plan of care. I discussed this plan and explained that I, or one of my partners, would be returning to complete the evaluation. I, Roxie Abby, am serving as a scribe to document services personally performed by Kris Lacey MD based on my observations and the provider's statements to me. 06/19/2022 [facility] Portions of this medical record were completed by a scribe. UPON MY REVIEW AND AUTHENTICATION BY ELECTRONIC SIGNATURE, this confirms (a) I performed the applicable clinical services, and (b) the recordis accurate. Kris Lacey MD 06/19/22 1523 Theresa Iverson RN - 06/19/2022 11:00 AM CST ABCs intact. Pt c/o back pain starting yesterday. Pt states pain radiates down both legs. Denies loss of bowel or bladder. Denies blood thinners. Declines medication at present. Scooter Jalloh MD - 06/19/2022 10:48 AM CST History Chief Complaint: Back Pain HPI Sreedhar Bautista is a 82 year old male with history of HTN, CAD, CKD, and status post of stent placement who presents with back pain. The patient states that two nights ago he woke up with bilateral backand hip pain that is worse when he moves around and tries to flip over in bed. He states that the pain shoots into his legs above his knees but no pain under the knees. He denies any back surgery, falls, back trauma, car accidents, or heavy lifting. He also states that he had chest pain 3 days ago which went away with taking a nitroglycerin but it is an abnormal pain for him. He does have a history of heart problems and has a stent placed and takes baby aspirin. He also has some leg swelling but is on Lasix. He denies any dizziness, shortness of breath, fever, chills, vomiting, diarrhea. Of note hewas diagnosed with Covid two weeks ago and was given Paxlovid for recovery. Review of Systems Constitutional: Negative for chills and fever. Respiratory: Negative for shortness of breath. Cardiovascular: Positive for chest pain and leg swelling. Gastrointestinal: Negative for diarrhea and vomiting. Musculoskeletal: Positive for arthralgias and back pain. Neurological: Negative for dizziness. All other systems reviewed and are negative. Allergies: Fish Oil Penicillins Medications: albuterol aspirin 81 MG furosemide losartan metFORMIN metoprolol tartrate nitroglycerin pantoprazole rosuvastatin Past Medical History: High cholesterol Hypertension CAD VA Aortic valve disorder Stented coronary artery Hyperlipidemia Diabetes CKD Anemia of chronic renal disease Hyperparathyroidism Past Surgical History: Arthroscopy of shoulder and decompression 1 cardiac stent placement Colectomy Coronary angiography Family History: Mother-Diabetes, HTN Father-Asthma Brother-VA, cancer Sister-VA Social History: The patient presents to the ED with his family. PCP: Ronnie Myers Physical Exam Patient Vitals for the past 24 hrs: BP Temp Temp src Pulse Resp SpO2 Height Weight 06/19/22 1058 (!) 162/74 98.1 ??F (36.7 ??C) Temporal 68 18 100 % 1.676 m (5' 6) 90.7 kg (200 lb) Physical Exam General: Patient is awake, alert and very pleasant Head: The scalp, face, and head appear normal Eyes: The pupils are equal, round, and reactive to light. Conjunctivae and sclerae are normal Neck: Normal range of motion. CV: Regular rate and rhythm. Peripheral pulses including radial pulses are symmetric. Resp: Lungs are clear without wheezes or rales. No respiratory distress. GI: Abdomen is soft, no rigidity, guarding, or rebound. No distension. No tenderness to palpation inany quadrant. MS: Chest wall is non tender to palpation. No asymmetric leg swelling, calf or thigh tenderness. Tenderness Skin: No rash or lesions noted. Normal capillary refill noted Neuro: Speech is normal and fluent. Face is symmetric. Moving all extremities. Psych: Normal affect. Appropriate interactions. Emergency Department Course ECG This ECG was taken at 1643, and signed at 1842 Normal Sinus rhythm Right bundle branch block Abnormal ECG Vent. rate 68, MI interval 146, QRS Duration 128, QT/QTc 416/442, P-R-T axes 60 9 33 Imaging: CT Abdomen Pelvis w Contrast Final Result IMPRESSION: 1. Small fat-containing upper abdominal left paramedian ventral hernia. No bowel obstruction. 2. No appendicitis. No urinary calculi or hydronephrosis. 3. No acute fracture. Lumbar spine CT w/o contrast Final Result IMPRESSION: 1. No evidence of lumbar spine fracture. 2. Slight retrolisthesis of L3 in relation to L4. 3. Degenerative disc disease with canal compromise and neural foraminal narrowing from the L2 through the L4-L5 disc space levels as described above. CT Thoracic Spine w/o Contrast Final Result IMPRESSION: 1. Good anatomic alignment and vertebral body heights maintained. 2. No significant canal compromise or neural foraminal narrowing throughout thoracic spine. XR Chest 2 Views Final Result IMPRESSION: Heart size and pulmonary vessels are normal. Very minimal interstitial prominence at lateral lung bases likely slight peripheral fibrosis. No focal consolidation or pleural effusion. Report per radiology Laboratory: Labs Ordered and Resulted from Time of ED Arrival to Time of ED Departure COMPREHENSIVE METABOLIC PANEL - Abnormal Result Value Sodium 135 (*) Potassium 4.1 Chloride 96 (*) Carbon Dioxide (CO2) 28 Anion Gap 11 Urea Nitrogen 9.0 Creatinine 1.11 Calcium 9.2 Glucose 117 (*) Alkaline Phosphatase 79 AST 24 ALT 14 Protein Total 6.9 Albumin 3.6 Bilirubin Total 1.3 (*) GFR Estimate 65 TROPONIN T, HIGH SENSITIVITY - Abnormal Troponin T, High Sensitivity 32 (*) CBC WITH PLATELETS AND DIFFERENTIAL - Abnormal WBC Count 12.4 (*) RBC Count 4.53 Hemoglobin 13.0 (*) Hematocrit 41.6 MCV 92 MCH 28.7 MCHC 31.3 (*) RDW 13.8 Platelet Count 181 % Neutrophils 67 % Lymphocytes 21 % Monocytes 10 % Eosinophils 1 % Basophils 0 % Immature Granulocytes 1 NRBCs per 100 WBC 0 Absolute Neutrophils 8.4 (*) Absolute Lymphocytes 2.6 Absolute Monocytes 1.2 Absolute Eosinophils 0.1 Absolute Basophils 0.0 Absolute Immature Granulocytes 0.1 Absolute NRBCs 0.0 TROPONIN T, HIGH SENSITIVITY - Abnormal Troponin T, High Sensitivity 33 (*) NT PROBNP INPATIENT - Normal N terminal Pro BNP Inpatient 1,249 ROUTINE UA WITH MICROSCOPIC REFLEX TO CULTURE - Normal Color Urine Straw Appearance Urine Clear Glucose Urine Negative Bilirubin Urine Negative Ketones Urine Negative Specific [place] Urine 1.005 Blood Urine Negative pH Urine 6.5 Protein Albumin Urine Negative Urobilinogen Urine Normal Nitrite Urine Negative Leukocyte Esterase Urine Negative RBC Urine 0 WBC Urine <1 Emergency Department Course: Reviewed: I reviewed nursing notes, vitals, past medical history and Care Everywhere Assessments: 1749 I obtained history and examined the patient as noted above. 1910 I rechecked the patient and explained findings. Consults: [address] Carrasco from the hospitalist team who recommended discharge and follow up with cardiology in outpatient. Interventions: 1637 Tylenol 1000mg PO 1735 NS Bolus 100mL IV Disposition: The patient was discharged to home. Impression & Plan Medical Decision Making: Patient is a 82-year-old very pleasant gentleman with past medical history of hypertension, coronaryartery disease status post stenting and chronic kidney disease who presents to the emergency department with back pain and brief episode of chest pain 2 days ago. Primarily his back pain brought him inwhich he notes is bilateral and radiates into his hip and buttock. He denies any trauma, heavy lifting or inciting action that flared up his pain a few days ago. He has never had any surgeries on his back before. Upon initial evaluation he has normal strength and sensation distally in his lower extremities. No significant saddle anesthesia. No indication for MRI based on patient's work-up and physical exam. CT scan of the lumbar and thoracic regions were obtained which did not show any acute fracture or dislocation. CT of the lumbar region revealed degenerative disc disease with several areas concerning for bulging disks. This likely is the source of his discomfort. CT of the abdomen pelvis did not reveal any additional sinister cause for his back pain. Patient's pain was well controlled the emergency department with minimal interventions. Patient also had brief episode of chest pain 3 days ago which she describes as pressure-like and centralized. He took a nitroglycerin which abated his pain. He has not had any recurrence of pain. He has not been exerting himself recently due to his back pain. EKG was obtained to further evaluate patient's chest pain. This showed evidence of chronic right bundle branch block but no evidence of any ischemic changes. His initial and follow-up troponin were both elevated. However there is not a significant rise between his delta. Given his recent pressure- like chest pain that was abated with nitro, hispast medical history and elevated troponin, I recommended brief observation stay for further cardiacwork-up. Hospital team came down and spoke with the patient and ultimately recommended discharge andclose follow-up with cardiology. Patient is amenable to this plan. Hospitalist team wrote discharge follow-up and wrote for medications of his lumbar back pain. Diagnosis: ICD-10-CM 1. Chest pain, unspecified type R07.9 2. Acute bilateral low back pain without sciatica M54.50 acetaminophen (TYLENOL) 500 MG tablet methocarbamol (ROBAXIN) 500 MG tablet traMADol (ULTRAM) 50 MG tablet Lidocaine (LIDOCARE) 4 % Patch Physical Therapy Referral 3. Essential hypertension I10 losartan (COZAAR) 50 MG tablet Discharge Medications: Current Discharge Medication List START taking these medications Details acetaminophen (TYLENOL) 500 MG tablet Take 2 tablets (1,000 mg) by mouth 3 times daily for 7 days Qty: 42 tablet, Refills: 0 Associated Diagnoses: Acute bilateral low back pain without sciatica Lidocaine (LIDOCARE) 4 % Patch Place 1 patch onto the skin every 24 hours for 5 days To prevent lidocaine toxicity, patient should be patch free for 12 hrs daily. Qty: 5 patch, Refills: 0 Associated Diagnoses: Acute bilateral low back pain without sciatica methocarbamol (ROBAXIN) 500 MG tablet Take 1 tablet (500 mg) by mouth 4 times daily for 7 days Qty: 28 tablet, Refills: 0 Associated Diagnoses: Acute bilateral low back pain without sciatica traMADol (ULTRAM) 50 MG tablet Take 0.5-1 tablets (25-50 mg) by mouth every 4 hours as needed for severe pain or breakthrough pain Qty: 15 tablet, Refills: 0 Associated Diagnoses: Acute bilateral low back pain without sciatica Scribe Disclosure: Rajat Christianson, am serving as a scribe at 5:29 PM on 06/19/2022 to document services personally performed by Scooter Okeefe MD based on my observations and the provider's statements to me. Scooter Okeefe MD 06/20/22 0034 NG PRESS OPERATOR documented in this encounter Miscellaneous Notes Pharmacy-Admission Medication History - [facility] - 06/19/2022 8:22 PM CST Admission medication history interview status for this patient is complete. See [facility] admission navigator for allergy information, prior to admission medications and immunization status. Medication history interview done, indicate source(s): Patient and Family Medication history resources (including written lists, pill bottles, clinic record):med list Pharmacy: - Changes made to [facility] medication list: Added: ferrous gluconate, proair Changed: losartan, Vit B12, Reported as Not Taking: - Removed: metformin, albuterol neb, vit c, vit d Actions taken by pharmacist (provider contacted, etc):None Additional medication history information:None Medication reconciliation/reorder completed by provider prior to medication history? no (Y/N) For patients on insulin therapy: Do you use sliding scale insulin based on blood sugars? What is your pre-meal insulin coverage? Do you typically eat three meals a day? How many times do you check your blood glucose per day? How many episodes of hypoglycemia do you typically have per month? Do you have a Continuous Glucose Monitor (CGM)? Prior to Admission medications Medication Sig Last Dose Taking? Auth Provider [facility] Date albuterol (PROAIR HFA/PROVENTIL HFA/VENTOLIN HFA) 108 (90 Base) MCG/ACT inhaler Inhale 1-2 puffs into the lungs every 6 hours as needed for shortness of breath / dyspnea or wheezing Yes Unknown, Entered By History Yes aspirin 81 MG tablet Take 81 mg by mouth daily 06/19/2022 Yes Reported, Patient budesonide-formoterol (SYMBICORT) 80-4.5 MCG/ACT Inhaler Inhale 2 puffs into the lungs 2 times daily06/19/2022 at x1 Yes Reported, Patient Yes Cyanocobalamin (VITAMIN B 12 PO) Take 500 mcg by mouth daily 06/19/2022 Yes Reported, Patient furosemide (LASIX) 20 MG tablet Take 1 tablet (20 mg) by mouth daily 06/19/2022 Yes Mali Dowd APRN CNP Yes losartan (COZAAR) 50 MG tablet Take 1 tablet (50 mg) by mouth daily Patient taking differently: Take 25 mg by mouth daily 06/18/2022 at hs Yes Mali Dowd APRN CNP Yes metoprolol tartrate (LOPRESSOR) 25 MG tablet Take 1 tablet (25 mg) by mouth 2 times daily 2at x1 Yes Mali Dowd, JERMAINE BUTLER Yes nitroglycerin (NITROSTAT) 0.[address] 1 tablet (0.4 mg) under the tongue every 5 minutes as needed for chest pain Yes Abhijit Castañeda MD Yes pantoprazole (PROTONIX) 40 MG enteric coated tablet Take 40 mg by mouth every 48 hours 06/18/2022 atam Yes Reported, Patient rosuvastatin (CRESTOR) 40 MG tablet Take 1 tablet (40 mg) by mouth daily 06/18/2022 at hs Yes Ta Trimble MD Yes NG PRESS OPERATOR documented in this encounter Plan of Treatment Scheduled Referrals Name Type Priority Associated Diagnoses Order S [facility] Physical Therapy Referral Priority: 1-2 Weeks Acute bilateral l ow Expected: Referral back pain without 06/19/2022 sciatica (Approximate), Expires: 06/19/2023 documented as of this encounter Procedures Procedure Name Priority Date/Time Associated Comments Diagnosis ROUTINE UA WITH STAT 06/19/2022 7:43 PM Result s for this MICROSCOPIC REFLEX TO BALING PRESS OPERATOR proced ure are in CULTURE the results section. TROPONIN T, HIGH STAT 06/19/2022 7:10 PM Resul ts for this SENSITIVITY BALING PRESS OPERATOR procedure are i n the results section. CT ABDOMEN PELVIS W STAT 06/19/2022 5:49 PM Re sults for this CONTRAST BALING PRESS OPERATOR procedure are i n the results section. CT LUMBAR SPINE W/O STAT 06/19/2022 5:47 PM Re sults for this CONTRAST BALING PRESS OPERATOR procedure are i n the results section. CT THORACIC SPINE W/O STAT 06/19/2022 5:46 PM Results for this CONTRAST BALING PRESS OPERATOR procedure are i n the results section. XR CHEST 2 VIEWS STAT 06/19/2022 5:00 PM Resul ts for this BALING PRESS OPERATOR procedure are i n the results section. EKG 12-LEAD, TRACING STAT 06/19/2022 4:43 PM R esults for this ONLY BALING PRESS OPERATOR procedure are i n the results section. EXTRA TUBE STAT 06/19/2022 4:29 PM Results f or this BALING PRESS OPERATOR procedure are i n the results section. EXTRA RED TOP TUBE STAT 06/19/2022 4:29 PM Res ults for this BALING PRESS OPERATOR procedure are i n the results section. EXTRA BLUE TOP TUBE STAT 06/19/2022 4:29 PM Re sults for this BALING PRESS OPERATOR procedure are i n the results section. CBC WITH PLATELETS AND STAT 06/19/2022 4:29 PM Results for this DIFFERENTIAL BALING PRESS OPERATOR procedure are i n the results section. TROPONIN T, HIGH STAT 06/19/2022 4:29 PM Resul ts for this SENSITIVITY BALING PRESS OPERATOR procedure are i n the results section. CBC WITH PLATELETS & STAT 06/19/2022 4:29 PM R esults for this DIFFERENTIAL BALING PRESS OPERATOR procedure are i n the results section. NT PROBNP INPATIENT STAT 06/19/2022 4:29 PM Re sults for this BALING PRESS OPERATOR procedure are i n the results section. COMPREHENSIVE STAT 06/19/2022 4:29 PM Results for this METABOLIC PANEL BALING PRESS OPERATOR procedure ar e in the results section. documented in this encounter Results UA with Microscopic reflex to Culture (06/19/2022 7:43 PM BALING PRESS OPERATOR) [facility] Method Time Signature Color Urine Straw Colorless, 06/19/2022 [facility] Straw, Light 8:12 PM BALING PRESS OPERATOR Yellow, Yellow Appearance Urine Clear Clear 06/19/2022 [facility] Y 8:12 PM BALING PRESS OPERATOR Glucose Urine Negative Negative 06/19/2022 [facility] mg/dL 8:12 PM BALING PRESS OPERATOR Bilirubin Urine Negative Negative 06/19/2022 [facility] 8:12 PM BALING PRESS OPERATOR Ketones Urine Negative Negative 06/19/2022 [facility] mg/dL 8:12 PM BALING PRESS OPERATOR Specific [place] 1.005 1.003 - CHRISTIANO 06/19/2022 LABORATOR Y Urine 1.035 8:12 PM BALING PRESS OPERATOR Blood Urine Negative Negative 06/19/2022 LABORATORY 8:12 PM BALING PRESS OPERATOR pH Urine 6.5 5.0 - 7.0 06/19/2022 LABORATORY 8:12 PM BALING PRESS OPERATOR Protein Albumin Negative Negative 06/19/2022 LABORATORY Urine mg/dL 8:12 PM BALING PRESS OPERATOR Urobilinogen Normal Normal, 2.0 06/19/2022 LABORATORY Urine mg/dL 8:12 PM BALING PRESS OPERATOR Nitrite Urine Negative Negative 06/19/2022 LABORATORY 8:12 PM BALING PRESS OPERATOR Leukocyte Negative Negative 06/19/2022 LABORATORY Esterase Urine 8:12 PM BALING PRESS OPERATOR RBC Urine 0 <=2 /HPF 06/19/2022 LABORATORY 8:12 PM BALING PRESS OPERATOR WBC Urine <1 <=5 /HPF 06/19/2022 LABORATORY 8:12 PM BALING PRESS OPERATOR Specimen Anatomical Collection Method Collection Time Receive d Time (Source) Location / / Volume Laterality Urine MID-STREAM URINE Non-blood 06/19/2022 7:43 PM 06/19 7:56 SPECIMEN / Unknown Collection / BALING PRESS OPERATOR PM BALING PRESS OPERATOR Unknown Narrative LABORATORY - 06/19/2022 8:12 PM BALING PRESS OPERATOR Urine Culture not indicated Kris Lacey MD LAB - URINE ORDERABLES Performing Organization Address City/State/ZIP Code Phon [place] [phone] [facility] [address] Lab (1st floor, no room number) (ABNORMAL) Troponin T, High Sensitivity (06/19/2022 7:10 PM BALING PRESS OPERATOR) Analysis Performed At Patho logist Time Signature Troponin T, High 33 (H) <=22 ng/L 06/19/2022 LABORATOR Y Sensitivity 7:42 PM BALING PRESS OPERATOR Comment: Either a High Sensitivity Troponin T bas zena (0 hours) value = 100 ng/mL, or an increase in High Sensitivity Troponin T = 7 ng/mL at 2 hours compared to 0 hours (2-0 hours), suggests myocardial injury, and urgent clinical attention is required. ?? If the 2-0 hours increase is<7 ng/mL, a High Sensitivity Troponin T result above gender-specific reference ranges warrants further evaluation. Recommendations for further evaluation i nclude correlation with clinical decision-making tool (e.g., HEART), a 3rd High Sensitivity Troponin T test 2 hours after the 2nd (a 20% change from baseline woul d represent concern), admission for obse rvation, close PCC/cardiology follow-up, or urgent outpatient provocative testing. Specimen Anatomical Collection Method / Collection Time Recei melodie Time (Source) Location / Volume Laterality Blood STRUCTURE OF LEFT Venipuncture / 06/19/2022 7:10 06/19 7:20 UPPER LIMB / Unknown PM BALING PRESS OPERATOR PM BALING PRESS OPERATOR Unknown Scooter Okeefe MD LAB - BLOOD ORDERABLES Performing Organization Address City/State/ZIP Code Phon [place] [id number] [facility] [address] Lab (1st floor, no room number) CT Abdomen Pelvis w Contrast (06/19/2022 5:49 PM BALING PRESS OPERATOR) Anatomical Region Laterality Modality Abdomen/Pelvis, SUBRAD CT BODY, UMP CT ABDOMEN PELVIS, Computed Tomography RAD CT Specimen (Source) Anatomical Collection Method Collection Time Re ceived Time Location / / Volume Laterality 06/19/2022 5:49 PM BALING PRESS OPERATOR Impressions 06/19/2022 6:00 PM BALING PRESS OPERATOR IMPRESSION: 1. ??Small fat-containing upper abdomina l left paramedian ventral hernia. No bowel obstruction. 2. ??No appendicitis. No urinary calculi or hydronephrosis. 3. ??No acute fracture. Narrative 06/19/2022 6:00 PM BALING PRESS OPERATOR EXAM: CT ABDOMEN PELVIS W CONTRAST LOCATION: [facility] DATE/TIME: 06/19/2022 5:49 PM INDICATION: Lower abdominal pain, midlin e lumbar pain. COMPARISON: None. TECHNIQUE: CT scan of the abdomen and pe lvis was performed following injection of IV contrast. Multiplanar reformats were obtained. Dose reduction techniques were used. CONTRAST: 100 mL Isovue 370 FINDINGS: LOWER CHEST: Subpleural fibronodular inf iltrates in the visualized lower lungs compatible with chronic interstitial lung disease. HEPATOBILIARY: Fatty liver. PANCREAS: Normal. SPLEEN: Normal. ADRENAL GLANDS: Normal. KIDNEYS/BLADDER: A few small cysts in th e kidneys. No follow-up is needed. BOWEL: Normal. LYMPH NODES: Normal. VASCULATURE: Unremarkable. PELVIC ORGANS: Normal. MUSCULOSKELETAL: There is a small fat-co ntaining upper abdominal left paramedian ventral hernia. Mild lumbar degenerative change. Procedure Note Gustavo Heck MD - 06/19/2022Formattin g of this note might be different from the original. EXAM: CT ABDOMEN PELVIS W CONTRAST LOCATION: [facility] DATE/TIME: 06/19/2022 5:49 PM INDICATION: Lower abdominal pain, midlin e lumbar pain. COMPARISON: None. TECHNIQUE: CT scan of the abdomen and pe lvis was performed following injection of IV contrast. Multiplanar reformats were obtained. Dose reduction techniques were used. CONTRAST: 100 mL Isovue 370 FINDINGS: LOWER CHEST: Subpleural fibronodular inf iltrates in the visualized lower lungs compatible with chronic interstitial lung disease. HEPATOBILIARY: Fatty liver. PANCREAS: Normal. SPLEEN: Normal. ADRENAL GLANDS: Normal. KIDNEYS/BLADDER: A few small cysts in th e kidneys. No follow-up is needed. BOWEL: Normal. LYMPH NODES: Normal. VASCULATURE: Unremarkable. PELVIC ORGANS: Normal. MUSCULOSKELETAL: There is a small fat-co ntaining upper abdominal left paramedian ventral hernia. Mild lumbar degenerative change. IMPRESSION: 1. Small fat-containing upper abdominal left paramedian ventral hernia. No bowel obstruction. 2. No appendicitis. No urinary calculi o r hydronephrosis. 3. No acute fracture. Kris Lacey MD IMG CT ORDERABLES Lumbar spine CT w/o contrast (06/19/2022 5:47 PM BALING PRESS OPERATOR) Anatomical Region Laterality Modality Spine, SUBRAD CT NEURO, UMP CT SPINE, RAD CT Computed Tomography Specimen (Source) Anatomical Collection Method Collection Time Re ceived Time Location / / Volume Laterality 06/19/2022 5:47 PM BALING PRESS OPERATOR Impressions 06/19/2022 6:21 PM BALING PRESS OPERATOR IMPRESSION: 1. No evidence of lumbar spine fracture. 2. Slight retrolisthesis of L3 in relati on to L4. 3. Degenerative disc disease with canal compromise and neural foraminal narrowing from the L2 through the L4-L5 disc space levels as described above. Narrative 06/19/2022 6:21 PM BALING PRESS OPERATOR EXAM: CT LUMBAR SPINE W/O CONTRAST LOCATION: [facility] DATE/TIME: 06/19/2022 5:47 PM INDICATION: lumbar back pain COMPARISON: 06/01/2014. TECHNIQUE: CT lumbar spine without contr ast. Dose reduction techniques were used. FINDINGS: ??There are 5 lumbar type vert ebral bodies. There is good anatomic alignment of the lumbar spine except for a slight retrolisthesis of L3 in relation to L4. The vertebral body heights are well -maintained throughout. There is no evid ence of an acute lumbar spine fracture. The paraspi nal soft tissues are unremarkable. The T12-L1 and the L1-L2 disc space leve ls have no significant canal compromise or neural foraminal narrowing. At the L2-L3 disc space level there is a moderate loss of disc space height along with endplate changes. There is a diffuse annular bulge more prominent to the right posterior lateral region. This along with the facet arthropathy leads to mild canal compromise, right neural lateral recess narrowing but the neural foramen are patent bilaterally. At the L3-L4 disc space level there is a mild loss of disc space height. There is a diffuse annular bulge more prominent to the right posterior lateral region. This along with the facet arthropathy lead s to moderate canal compromise, bilatera l lateral recess narrowing along with mild right n eural foraminal narrowing and moderate left neural foraminal narrowing. At the L4-L5 disc space level there is a diffuse annular bulge more prominent to the posterior lateral regions. This along with the facet arthropathy leads to moderate canal compromise, bilateral latera l recess narrowing and moderate bilatera l neural foraminal narrowing. At the L5-S1 disc space level there is a normal disc space height. There is a small central disc protrusion but no evidence of canal compromise. There is mild facet arthropathy but the lateral recesses and the neural foramen are patent bilaterally. Procedure Note Suki Rodriguez MD - 06/19/2022 EXAM: CT LUMBAR SPINE W/O CONTRAST LOCATION: [facility] DATE/TIME: 06/19/2022 5:47 PM INDICATION: lumbar back pain COMPARISON: 06/01/2014. TECHNIQUE: CT lumbar spine without contr ast. Dose reduction techniques were used. FINDINGS: There are 5 lumbar type verteb ral bodies. There is good anatomic alignment of the lumbar spine except for a slight retrolisthesis of L3 in relation to L4. The vertebral body heights are well-maintained throughout. There is no evidence of an acute lumbar spine fracture. The paraspi nal soft tissues are unremarkable. The T12-L1 and the L1-L2 disc space leve ls have no significant canal compromise or neural foraminal narrowing. At the L2-L3 disc space level there is a moderate loss of disc space height along with endplate changes. There is a diffuse annular bulge more prominent to the right posterior lateral region. This along with the facet arthropathy leads to mild canal compromise, right neural lateral recess narrowing but the neural foramen are patent bilaterally. At the L3-L4 disc space level there is a mild loss of disc space height. There is a diffuse annular bulge more prominent to the right posterior lateral region. This along with the facet arthropathy leads to moderate canal compromise, bilateral lateral recess narrowing along with mild right n eural foraminal narrowing and moderate left neural foraminal narrowing. At the L4-L5 disc space level there is a diffuse annular bulge more prominent to the posterior lateral regions. This along with the facet arthropathy leads to moderate canal compromise, bilateral lateral recess narrowing and moderate bilateral neural foraminal narrowing. At the L5-S1 disc space level there is a normal disc space height. There is a small central disc protrusion but no evidence of canal compromise. There is mild facet arthropathy but the lateral recesses and the neural foramen are patent bilaterally. IMPRESSION: 1. No evidence of lumbar spine fracture. 2. Slight retrolisthesis of L3 in relati on to L4. 3. Degenerative disc disease with canal compromise and neural foraminal narrowing from the L2 through the L4-L5 disc space levels as described above. Kris Lacey MD IMG CT ORDERABLES CT Thoracic Spine w/o Contrast (06/19/2022 5:46 PM BALING PRESS OPERATOR) Anatomical Region Laterality Modality Spine, SUBRAD CT NEURO, UMP CT SPINE, RAD CT Computed Tomography Specimen (Source) Anatomical Collection Method Collection Time Re ceived Time Location / / Volume Laterality 06/19/2022 5:46 PM BALING PRESS OPERATOR Impressions 06/19/2022 6:09 PM BALING PRESS OPERATOR IMPRESSION: 1. Good anatomic alignment and vertebral body heights maintained. 2. No significant canal compromise or ne ural foraminal narrowing throughout thoracic spine. Narrative 06/19/2022 6:09 PM BALING PRESS OPERATOR EXAM: CT THORACIC SPINE W/O CONTRAST LOCATION: [facility] DATE/TIME: 06/19/2022 5:46 PM INDICATION: lower thoracic back pain COMPARISON: 11/10/2016. TECHNIQUE: CT thoracic spine without con trast. Dose reduction techniques were performed. FINDINGS: There is good anatomic alignme nt of the thoracic spine. The vertebral body heights are well-maintained throughout. There are degenerative changes seen involving the mid to lower thoracic disc spaces. These levels have a mild loss of height, endplate changes and syndesmophyte forma tions. There is no evidence of canal compromise or neural foraminal narrowing throughout the thoracic spine. The paraspinal soft tissues are unremarkable. The lungs visualized on this study are clear. Procedure Note Suki Rodriguez MD - 06/19/2022 EXAM: CT THORACIC SPINE W/O CONTRAST LOCATION: [facility] DATE/TIME: 06/19/2022 5:46 PM INDICATION: lower thoracic back pain COMPARISON: 11/10/2016. TECHNIQUE: CT thoracic spine without con trast. Dose reduction techniques were performed. FINDINGS: There is good anatomic alignme nt of the thoracic spine. The vertebral body heights are well-maintained throughout. There are degenerative changes seen involving the mid to lower thoracic disc spaces. These levels have a mild loss of height, endplate changes and syndesmophyte forma tions. There is no evidence of canal compromise or neural foraminal narrowing throughout the thoracic spine. The paraspinal soft tissues are unremarkable. The lungs visualized on this study are clear. IMPRESSION: 1. Good anatomic alignment and vertebral body heights maintained. 2. No significant canal compromise or ne ural foraminal narrowing throughout thoracic spine. Kris Lacey MD IMG CT ORDERABLES XR Chest 2 Views (06/19/2022 5:00 PM BALING PRESS OPERATOR) Anatomical Region Laterality Modality Chest Computed Radiography Specimen (Source) Anatomical Collection Method Collection Time Re ceived Time Location / / Volume Laterality 06/19/2022 5:00 PM BALING PRESS OPERATOR Impressions 06/19/2022 5:02 PM BALING PRESS OPERATOR IMPRESSION: Heart size and pulmonary ves sels are normal. Very minimal interstitial prominence at lateral lung bases likely slight peripheral fibrosis. No focal consolidation or pleural effusion. Narrative 06/19/2022 5:02 PM BALING PRESS OPERATOR EXAM: XR CHEST 2 VIEWS LOCATION: [facility] DATE/TIME: 06/19/2022 5:00 PM INDICATION: chest pain, recent covid COMPARISON: None. Procedure Note Alvin Finn MD - 06/19/2022Formatt ing of this note might be different from the original. EXAM: XR CHEST 2 VIEWS LOCATION: [facility] DATE/TIME: 06/19/2022 5:00 PM INDICATION: chest pain, recent covid COMPARISON: None. IMPRESSION: Heart size and pulmonary ves sels are normal. Very minimal interstitial prominence at lateral lung bases likely slight peripheral fibrosis. No focal consolidation or pleural effusion. Kris Lacey MD IMG DIAGNOSTIC IMAGING ORDER MYNOR EKG 12-lead, tracing only (06/19/2022 4:43 PM BALING PRESS OPERATOR) [facility] Method Time Signature Systolic Blood mmHg RADIOLOGY Pressure RESULTS Diastolic Blood mmHg RADIOLOGY Pressure RESULTS Ventricular Rate 68 BPM RADIOLOGY RESULTS Atrial Rate 68 BPM RADIOLOGY RESULTS MI Interval 146 ms RADIOLOGY RESULTS QRS Duration 128 ms RADIOLOGY RESULTS QT 416 ms RADIOLOGY RESULTS QTc 442 ms RADIOLOGY RESULTS P [place] 60 degrees RADIOLOGY RESULTS R AXIS 9 degrees RADIOLOGY RESULTS T [place] 33 degrees RADIOLOGY RESULTS Interpretation ECG Sinus rhythm RADIOLOG Y Right bundle branch block RESU LTS Abnormal ECG When compared with ECG of 14-NOV-2016 13:24, Right bundle branch block is now Present Specimen Anatomical Collection Method Collection Time Receive d Time (Source) Location / / Volume Laterality 06/19/2022 4:43 PM 2 BALING PRESS OPERATOR 10:48 PM BALING PRESS OPERATOR Kris Lacey MD ECG ORDERABLES Performing Organization Address City/State/[facility] Code Phon e Number RADIOLOGY RESULTS Extra Red Top Tube (06/19/2022 4:29 PM BALING PRESS OPERATOR) P athologist Signature Hold Specimen JIC 06/19/2022 [facility] 5:47 PM BALING PRESS OPERATOR Specimen Anatomical Collection Method / Collection Time Recei melodie Time (Source) Location / Volume Laterality Blood VENOUS LINE / Venipuncture / 06/19/2022 4:29 2 4:37 Unknown Unknown PM BALING PRESS OPERATOR PM BALING PRESS OPERATOR Scooter Okeefe MD LAB - BLOOD ORDERABLES Performing Organization Address City/State/ZIP Code Phon e Number [place] [address] Care Lab [address] Lab (1st floor, no room number) Extra Blue Top Tube (06/19/2022 4:29 PM BALING PRESS OPERATOR) P athologist Signature Hold Specimen JIC 06/19/2022 [facility] 5:47 PM BALING PRESS OPERATOR Specimen Anatomical Collection Method / Collection Time Recei melodie Time (Source) Location / Volume Laterality Blood VENOUS LINE / Venipuncture / 06/19/2022 4:29 4:36 Unknown Unknown PM BALING PRESS OPERATOR PM BALING PRESS OPERATOR Scooter Okeefe MD LAB - BLOOD ORDERABLES Performing Organization Address City/[facility]/ZIP Code Phon [place] [address] Care Lab [address] Lab (1st floor, no room number) (ABNORMAL) CBC with platelets and differential (06/19/2022 4:29 PM BALING PRESS OPERATOR) [facility] g[facility] Method Time Signature WBC Count 12.4 (H) 4.0 - 06/19/2022 [facility] 11.0 4:40 PM BALING PRESS OPERATOR 10e3/uL RBC Count 4.53 4.40 - 06/19/2022 [facility] 5.90 4:40 PM BALING PRESS OPERATOR 10e6/uL Hemoglobin 13.0 (L) 13.3 - 06/19/2022 [facility] 17.7 g/dL 4:40 PM BALING PRESS OPERATOR Hematocrit 41.6 40.0 - 06/19/2022 [facility] 53.0 % 4:40 PM BALING PRESS OPERATOR MCV 92 78 - 100 06/19/2022 [facility] fL 4:40 PM BALING PRESS OPERATOR MCH 28.7 26.5 - 06/19/2022 [facility] 33.0 pg 4:40 PM BALING PRESS OPERATOR MCHC 31.3 (L) 31.5 - 06/19/2022 [facility] 36.5 g/dL 4:40 PM BALING PRESS OPERATOR RDW 13.8 10.0 - 06/19/2022 [facility] 15.0 % 4:40 PM BALING PRESS OPERATOR Platelet Count 181 150 - 450 06/19/2022 [facility] 10e3/uL 4:40 PM BALING PRESS OPERATOR % Neutrophils 67 % 06/19/2022 [facility] 4:40 PM BALING PRESS OPERATOR % Lymphocytes 21 % 06/19/2022 [facility] 4:40 PM BALING PRESS OPERATOR % Monocytes 10 % 06/19/2022 [facility] 4:40 PM BALING PRESS OPERATOR % Eosinophils 1 % 06/19/2022 [facility] 4:40 PM BALING PRESS OPERATOR % Basophils 0 % 06/19/2022 [facility] 4:40 PM BALING PRESS OPERATOR % Immature 1 % 06/19/2022 [facility] Granulocytes 4:40 PM BALING PRESS OPERATOR NRBCs per 100 0 <1 /100 06/19/2022 [facility] WBC 4:40 PM BALING PRESS OPERATOR Absolute 8.4 (H) 1.6 - 8.3 06/19/2022 [facility] Neutrophils 10e3/uL 4:40 PM BALING PRESS OPERATOR Absolute 2.6 0.8 - 5.3 06/19/2022 [facility] Lymphocytes 10e3/uL 4:40 PM BALING PRESS OPERATOR Absolute 1.2 0.0 - 1.3 06/19/2022 [facility] Monocytes 10e3/uL 4:40 PM BALING PRESS OPERATOR Absolute 0.1 0.0 - 0.7 06/19/2022 [facility] Eosinophils 10e3/uL 4:40 PM BALING PRESS OPERATOR Absolute 0.0 0.0 - 0.2 06/19/2022 [facility] Basophils 10e3/uL 4:40 PM BALING PRESS OPERATOR Absolute 0.1 <=0.4 06/19/2022 [facility] Immature 10e3/uL 4:40 PM BALING PRESS OPERATOR Granulocytes Absolute NRBCs 0.0 10e3/uL 06/19/2022 [facility] 4:40 PM BALING PRESS OPERATOR Specimen Anatomical Collection Method / Collection Time Recei melodie Time (Source) Location / Volume Laterality Blood VENOUS LINE / Venipuncture / 06/19/2022 4:29 4:36 Unknown Unknown PM BALING PRESS OPERATOR PM BALING PRESS OPERATOR Kris Lacey MD LAB - BLOOD ORDERABLES Performing Organization Address City/State/ZIP Code Phon [place] Number [place] [address] Care Lab [address] Lab (1st floor, no room number) Nt probnp inpatient (BNP) (06/19/2022 4:29 PM BALING PRESS OPERATOR) P athologist Signature N terminal Pro 1,249 0 - 1,800 06/19/2022 [facility] BNP Inpatient pg/mL 5:25 PM BALING PRESS OPERATOR Comment: Reference range shown and results flagge d as abnormal are suggested inpatient cut points for confirming diagnosis if CHF in an acute setting. Establishing a baseline value for each individual patient is useful for follow-up. An inpatient or e mergency department NT-proPBNP <300 pg/mL effectively rules out acute CHF, with 99% negative predictive value. The outpatient non-acute reference range for ruling out CHF is: 0-125 pg/mL (age 18 to less than 75) 0-450 pg/mL (age 75 yrs and older) Specimen Anatomical Collection Method / Collection Time Recei melodie Time (Source) Location / Volume Laterality Blood VENOUS LINE / Venipuncture / 06/19/2022 4:29 4:37 Unknown Unknown PM BALING PRESS OPERATOR PM BALING PRESS OPERATOR Kris Lacey MD LAB - BLOOD ORDERABLES Performing Organization Address City/State/ZIP Code Phon [place] [phone] Care Lab [address] Lab (1st floor, no room number) (ABNORMAL) Troponin T, High Sensitivity (06/19/2022 4:29 PM BALING PRESS OPERATOR) Analysis Performed At Patho logist Time Signature Troponin T, High 32 (H) <=22 ng/L 06/19/2022 LABORATOR Y Sensitivity 5:25 PM BALING PRESS OPERATOR Comment: Either a High Sensitivity Troponin T bas zena (0 hours) value = 100 ng/mL, or an increase in High Sensitivity Troponin T = 7 ng/mL at 2 hours compared to 0 hours (2-0 hours), suggests myocardial injury, and urgent clinical attention is required. ?? If the 2-0 hours increase is<7 ng/mL, a High Sensitivity Troponin T result above gender-specific reference ranges warrants further evaluation. Recommendations for further evaluation i nclude correlation with clinical decision-making tool (e.g., HEART), a 3rd High Sensitivity Troponin T test 2 hours after the 2nd (a 20% change from baseline woul d represent concern), admission for obse rvation, close PCC/cardiology follow-up, or urgent outpatient provocative testing. Specimen Anatomical Collection Method / Collection Time Recei melodie Time (Source) Location / Volume Laterality Blood VENOUS LINE / Venipuncture / 06/19/2022 4:29 4:37 Unknown Unknown PM BALING PRESS OPERATOR PM BALING PRESS OPERATOR Kris Lacey MD LAB - BLOOD ORDERABLES Performing Organization Address City/State/ZIP Code Phon [place] [phone] Care Lab [address] Lab (1st floor, no room number) (ABNORMAL) Comprehensive metabolic panel (06/19/2022 4:29 PM BALING PRESS OPERATOR) [facility] Method Time Signature Sodium 135 (L) 136 - 145 06/19/2022 LABORATORY mmol/L 5:20 PM BALING PRESS OPERATOR Potassium 4.1 3.4 - 5.3 06/19/2022 LABORATORY mmol/L 5:20 PM BALING PRESS OPERATOR Chloride 96 (L) 98 - 107 06/19/2022 LABORATORY mmol/L 5:20 PM BALING PRESS OPERATOR Carbon Dioxide 28 22 - 29 06/19/2022 LABORATORY (CO2) mmol/L 5:20 PM BALING PRESS OPERATOR Anion Gap 11 7 - 15 06/19/2022 LABORATORY mmol/L 5:20 PM BALING PRESS OPERATOR Urea Nitrogen 9.0 8.0 - 23.0 06/19/2022 LABORATORY mg/dL 5:20 PM BALING PRESS OPERATOR Creatinine 1.11 0.67 - 06/19/2022 LABORATORY 1.17 mg/dL 5:20 PM BALING PRESS OPERATOR Calcium 9.2 8.8 - 10.2 06/19/2022 LABORATORY mg/dL 5:20 PM BALING PRESS OPERATOR Glucose 117 (H) 70 - 99 06/19/2022 LABORATORY mg/dL 5:20 PM BALING PRESS OPERATOR Alkaline 79 40 - 129 06/19/2022 LABORATORY Phosphatase U/L 5:20 PM BALING PRESS OPERATOR AST 24 10 - 50 06/19/2022 LABORATORY U/L 5:20 PM BALING PRESS OPERATOR Comment: Specimen is hemolyzed which can falsely elevate AST. Analysis of a non-hemolyzed specimen may result in a l ower value. ALT 14 10 - 50 U/L 06/19/2022 5:20 PM BALING PRESS OPERATOR [facility] Protein Total 6.9 6.4 - 8.3 g/dL 06/19/2022 5:20 PM CS T LABORATORY Albumin 3.6 3.5 - 5.2 g/dL 06/19/2022 5:20 PM BALING PRESS OPERATOR [facility] Bilirubin Total 1.3 (H) <=1.2 mg/dL 06/19/2022 5:20 PM BALING PRESS OPERATOR [facility] GFR Estimate 65 >60 mL/min/1.73m2 06/19/2022 5:20 PM BALING PRESS OPERATOR [facility] Comment: Effective July 25, 2021 eGF Rcr in adults is calculated using the 2020 CKD-EPI creatinine equation which includ es age and gender (Susana et al., [place], DOI: 10.1056/PNGUio0247581) Specimen Anatomical Collection Method / Collection Time Recei melodie Time (Source) Location / Volume Laterality Blood VENOUS LINE / Venipuncture / 06/19/2022 4:29 4:37 Unknown Unknown PM BALING PRESS OPERATOR PM BALING PRESS OPERATOR Kris Lacey MD LAB - BLOOD ORDERABLES Performing Organization Address City/State/ZIP Code Phon e Number [place] [address] Care Lab [address] Lab (1st floor, no room number) documented in this encounter Visit Diagnoses Diagnosis Chest pain, unspecified type Acute bilateral low back pain without sc iatica Essential hypertension Unspecified essential hypertension documented in this encounter Administered Medications Inactive Administered Medications - up to 3 most recent administrations Medication Order MAR Action Action Date Dose Rate Site 0.9% sodium chloride BOLUS New Bag 06/19/2022 5:35 PM BALING PRESS OPERATOR 100 mLs Intravenous, 100 mL, ONCE, On Sat06/19/22 at 1735, For 1 dose acetaminophen (TYLENOL) tablet 1,000 mg Given 06/19/2022 4:37 PM BALING PRESS OPERATOR 1,000 mg 1,000 mg, Oral, ONCE, On Sat06/19/22 at 1505, For 1 dose, Maximum acetaminophen dose from all sources = 75 mg/kg/day not to exceed 4 gram cyclobenzaprine (FLEXERIL) tablet 10 mg Given 06/19/2022 8:29 PM BALING PRESS OPERATOR 10 mg 10 mg, Oral, ONCE, On Sat06/19/22 at 1935, For 1 dose iopamidol (ISOVUE-370) solution 500 mL Given 06/19/2022 5:35 PM BALING PRESS OPERATOR 100 mLs 500 mL, Intravenous, ONCE, On Sat06/19/22 at 1735, For 1 dose ketorolac (TORADOL) injection 15 mg Given 06/19/2022 8:28 PM BALING PRESS OPERATOR 15 mg 15 mg, Intravenous, ONCE, On Sat06/19/22 at 1935, For 1 dose, Can cause pain on injection. If ordered intravenously (IV) : administer through a running maintenance fluid over 1 minute followed by a flush. If patient complains of pain on injection, may dilute 15-30 mg in 5 mL and push over 1 to 2 minutes. Lidocaine (LIDOCARE) 4 Patch/Med Applied 06/19/2022 10:33 PM 1 patch Left Lower Back % Patch 1 patch BALING PRESS OPERATOR 1 patch, Transdermal, EVERY 24 HOURS 1999, Administer over 12 Hours, First dose on Sat06/19/22 at 2120, Apply patch(s) to lower back. To prevent lidocaine toxicity, patient should be patch free for 12 hrs daily. Patches may be cut to smaller size prior to removing release liner. Reminder: Remove previous patch before applying new patch. NEVER APPLY HEAT OVER PATCH which increases absorption and may lead to local anesthetic toxicity. Do not apply over area where liposomal bupivacaine was injected for 96 hours post injection. lidocaine patch in PLACE First dose on Sat06/19/22 at 2200, Chart every shift, confirming that patch is still in place on patient (no barcode scan needed). Se e patch order for dose information. NEVER APPLY HEAT OVER PATCH which will in crease absorption and may lead to risk of local anesthetic toxicit y. Do not apply over area where liposomal bupivacaine injected for 96 hours. traMADol (ULTRAM) tablet 50 mg Given 06/19/2022 10:36 PM BALING PRESS OPERATOR 50 mg 50 mg, Oral, EVERY 6 HOURS PRN, moderate pain (4-6), Starting on Sat06/19/22 at 2117 documented in this encounter Active and Recently Administered Medications Times are shown in BALING PRESS OPERATOR. Scheduled Medication Order 06/17/2022 06/18/2022 06/19/2022 0.9% sodium chloride BOLUS (COMPLETED) 1735 (New Bag - Provider: Chris Wayne)2031 (Stopped - Provider: Lamine Aldana RN) Intravenous, 100 mL, ONCE, On Sat06/19/22 at 1735, For 1 dose acetaminophen (TYLENOL) tablet 1,000 mg (COMPLETED) 1637 (Given - Provider: Theresa Hassan, YEN) 1,000 mg, Oral, ONCE, On Sat06/19/22 at 1505, For 1 dose, Maximum acetaminophen dose from all sources = 75 mg/kg/day not to exceed 4 gram cyclobenzaprine (FLEXERIL) tablet 10 mg (COMPLETED) 2028 (Given - Provider: Lamine Aldana, YEN) 10 mg, Oral, ONCE, On Sat06/19/22 at 1935, For 1 dose iopamidol (ISOVUE-370) solution 500 mL (COMPLETED) 1734 (Given - Provider: Chris Wayne) 500 mL, Intravenous, ONCE, On Sat06/19/22 at 1735, For 1 dose ketorolac (TORADOL) injection 15 mg (COMPLETED) 2027 (Given - Provider: Lamine Aldana RN) 15 mg, Intravenous, ONCE, On Sat 2 at 1935, For 1 dose, Can cause pain on injection. If ordered intravenously (IV) : administer through a running maintenance fluid over 1 minute followed by a flu sh. If patient complains of pain on inje ction, may dilute 15-30 mg in 5 mL and push over 1 to 2 minutes. Lidocaine (LIDOCARE) 4 % Patch 1 patch(Linked Group 1) 2232 (Patch/Med Applied - Provider: Mayco Mcgee RN)2250 (Due: Patch/Med Removed - Provider: Orders Generic Provider - Comment: Time automatically adjusted from order being discontinued) 1 patch, Transdermal, EVERY 24 HOURS 200 0, Administer over 12 Hours, First dose on Sat06/19/22 at 2120, Apply patch(s) to lower back. To prevent lidocaine toxicity, patient should be patch free for 12 hrs daily. Patches may be cut to smaller size prior to removing release liner. Reminder: Remove previous patch before applying new patch. NEVER APPLY HEAT OVER PATCH which increases absorption and may l ead to local anesthetic toxicity. Do not apply over area where liposomal bupivacaine was injected for 96 hours post injection. lidocaine patch in PLACE(Linked Group 1) 2199 (Canceled Entry - Provider: Orders Generic Provider - Comment: Automatically canceled at discontinue of medication order) First dose on Sat06/19/22 at 2200, Funmi t every shift, confirming that patch is still in place on patient (no barcode scan needed). See patch order for dose information. NEVER APPLY HEAT OVER PATCH whic h will increase absorption and may lead to risk of local anesthetic toxicity. Do not apply over area where liposomal bupivacaine injected for 96 hours. PRN Medication Order 06/17/2022 06/18/2022 06/19/2022 traMADol (ULTRAM) tablet 50 mg 2 236 (Given - Provider: Mayco Mcgee RN) 50 mg, Oral, EVERY 6 HOURS PRN, moderate pain (4-6), Starting on Sat06/19/22 at 2117 Linked Groups Order Group 1: Lidocaine (LIDOCARE) 4 % Patch 1 patchJump to med 1 patch, Transdermal, EVERY 24 HOURS 200 0, Administer over 12 Hours, First dose on Sat06/19/22 at 2120
Apply patch(s) to lower back. To prevent lidocaine toxicity, patient should be patch free for 12 hrs daily. Patches may be cut to smaller size prior to removing release liner. Reminder: Remove previous patch before applying new patch. NEVER APPLY HEAT OVER PATCH which increases abs orption and may lead to local anesthetic toxicity. Do not apply over area where liposomal bupivacaine was injected for 96 hours post injection.
And lidocaine patch in PLACEJump to med First dose on Sat06/19/22 at 2200
Ch art every shift, confirming that patch is still in place on patient (no barcode scan needed). See patch order for dose information. NEVER APPLY HEA T OVER PATCH which will increase absorpt ion and may lead to risk of local anesthetic toxicity. Do not apply over area where liposomal bupivacaine injected for 96 hours.
documented in this encounter Care Teams Sorter Upholstery Parts Relationship Specialty Start Date End Date Ronnie Myers PCP - General Family Medicine 09/11/21 [facility] [address] [place] [address] Zen Rousseau MD MD Family Practice 07/31/12 [facility] [address] [place] [phone] Mali Dowd APRN Assigned Heart and Vascular 10/08/21 LIGHT[facility] SPECIALIST Provider [address] [place] [id number] documented as of this encounter
--- OUTSIDE RECORDS SUMMARY | 2022-07-09 14:43 | XMS_ITS | Encounter Summary ---
:1940 Author Organization [place] Address [facility] [place] [address] Care Team Providers Name Role Phone Zen Rousseau MD Unavailable Senthil Mckeon MD Primary Care Provider [phone] Ta Trimble MD Unavailable [phone] Ronnie Myers Primary Care Provider Nile January GARBAGE DEPOT WORKER MORTGAGE LOAN COMPUTATION CLERK Unavailable Reason for Visit Reason Onset Date Comments Appointment 09/08/2021 Calling to schedule appt Encounter Details Date Type Department Care Team Description 09/08/2021 [facility] Nile Mali E, Ap pointment (Calling to [facility] [place] GARBAGE DEPOT WORKER MORTGAGE LOAN COMPUTATION CLERK schedule appt) [address] [facility] [address] [place], [place] [phone] Social History Tobacco Use Types Packs/Day Years Used Date Smoking Tobacco: Former Smokeless Tobacco: Never Comments: quit about 30 years ago Alcohol Use Standard Drinks/Week Comments Yes 0 (1 standard drink = 0.6 oz pure alcoho l) rare Sex Assigned at Date Recorded Not on file documented as of this encounter Miscellaneous Notes Telephone Encounter - Ash Solitario - 09/08/2021 2:45 PM CST [facility] Phone Message May a detailed message be left on voicemail: yes Reason for Call: Other: pt calling to schedule appt but unable to populate January UMER tangel[place] in [place] for October pt aware clinic will call to help schedule. Action Taken: Message routed to: Other: Cardiology Travel Screening: Not Applicable AP BAG SEWER documented in this encounter Plan of Treatment Not on filedocumented as of this encounter Visit Diagnoses Not on filedocumented in this encounter Care Teams Crisis Counselor Relationship Specialty Start Date End Date Senthil Mckeon, PCP - General 12/03/18 Ronnie Myers PCP - General Family Medicine 09/11/21 [facility] [address] [place], [place] [phone] Zen Rousseau MD MD Family Practice 07/31/12 [facility] [address] [place] [address] Ta Trimble Assigned Heart and 05/27/20 2 MD [facility] Provider [address] [place] [id number] Mali Dowd APRN CNP Assigned Heart and 10/08/21 [address] Vascular Provider [place] [id number] documented as of this encounter
--- OUTSIDE RECORDS SUMMARY | 2022-07-09 14:43 | XMS_ITS | Encounter Summary ---
:1940 Author Organization [place] Address [facility] [place] [address] Care Team Providers Name Role Phone Zen Rousseau MD Unavailable Ta Trimble MD Unavailable [phone] Ronnie Myers Primary Care Provider Encounter [...] with No / Unsure 10/04/2021 2:30 PM PATIENT SUPPORT PARTNER someone who was confirmed or suspected to have Coronavirus / COVID-19? documented as of this encounter Plan of Treatment Not on filedocumented as of this encounter Visit Diagnoses Not on filedocumented in this encounter Care Teams Licensed Weigher Relationship Specialty Start Date End Date Ronnie Myers PCP - General Family Medicine 09/11/21 [facility] [address] [place] [address] Zen Rousseau MD MD Family Practice 07/31/12 [facility] [address] [place] [phone] Ta Trimble Assigned Heart and 05/27/20 2 MD [facility] Provider [address] [place] [id number] documented as of this encounter
--- OUTSIDE RECORDS SUMMARY | 2022-07-09 14:43 | XMS_ITS | Clinical Summary ---
:1940 Author Organization [place] Address [facility] [place] [place] [address] Care Team Providers Name Role Phone Zen Rousseau MD Unavailable Ronnie Myers Primary Care Provider Mali Dowd APRN, CNP Unavailable Allergies Active Allergy Reactions Severity Noted Date Comments Fish Oil Other (See Comments) 09/30/2014 Bloody noses Penicillins Itching 05/24/2014 Medications Medication Sig Dispensed Refills Start End Status Date Date pantoprazole Take 40 mg by 0 Act stella (PROTONIX) 40 MG mouth every 48 enteric coated hours tablet budesonide-formote Inhale 2 puffs 0 Active rol (SYMBICORT) into the lungs 2 80-4.5 MCG/ACT times daily Inhaler aspirin 81 MG Take 81 mg by 0 Ac tive tablet mouth daily Cyanocobalamin Take 500 mcg by 0 Active (VITAMIN B 12 PO) mouth daily nitroglycerin Place 1 tablet 25 tablet 3 10/04/19 A ctive (NITROSTAT) 0.4 MG (0.4 mg) under 16 SL the tongue every tabletIndications: 5 minutes as Coronary artery needed for chest disease involving pain prairie band coronary artery of prairie band heart without angina pectoris rosuvastatin Take 1 tablet 90 tablet 2 02/22/20 Act stella (CRESTOR) 40 MG (40 mg) by mouth 21 tabletIndications: daily Mixed hyperlipidemia, Coronary artery disease involving prairie band coronary artery of prairie band heart without angina pectoris furosemide (LASIX) Take 1 tablet 90 tablet 3 10/05/19 Active 20 MG (20 mg) by mouth 22 tabletIndications: daily Essential hypertension, Coronary artery disease involving prairie band coronary artery of prairie band heart without angina pectoris metoprolol Take 1 tablet 180 tablet 3 10/05/19 Acti ve tartrate (25 mg) by mouth 22 (LOPRESSOR) 25 MG 2 times daily tabletIndications: Essential hypertension albuterol (PROAIR Inhale 1-2 puffs 0 Active HFA/PROVENTIL into the lungs HFA/VENTOLIN HFA) every 6 hours as 108 (90 Base) needed for MCG/ACT inhaler shortness of breath / dyspnea or wheezing ferrous gluconate Take 324 mg by 0 Active (FERGON) 324 (38 mouth daily Fe) MG tablet (with breakfast) losartan (COZAAR) Take 0.5 tablets 0 06/19/20 Active 50 MG (25 mg) by mouth tabletIndications: daily Essential hypertension albuterol (2.5 Take 1 vial by 0 Discontinued MG/3ML) 0.083% nebulization 022 (M edication nebulizer solution every 6 hours as Reconciliation needed for Clean Up) shortness of breath / dyspnea or wheezing VITAMIN D, Take 1,000 Units 0 Di scontinued CHOLECALCIFEROL, by mouth daily 022 (Medication PO Reconcilia tion Clean Up) Ascorbic Acid Take by mouth 0 Di scontinued (VITAMIN C) 500 MG daily 022 ( Medication CAPS Reconcilia tion Clean Up) metFORMIN TAKE ONE TABLET 0 09/07/19 Disc ontinued (GLUCOPHAGE) 500 BY MOUTH TWICE (Medication MG tablet DAILY with meals Rec onciliation Clean Up) losartan (COZAAR) Take 1 tablet 90 tablet 3 10/05/19 Discontinued 50 MG (50 mg) by mouth (Re order) tabletIndications: daily Essential hypertension acetaminophen Take 2 tablets 42 tablet 0 06/19/20 E xpired (TYLENOL) 500 MG (1,000 mg) by tabletIndications: mouth 3 times Acute bilateral daily for 7 days low back pain without sciatica methocarbamol Take 1 tablet 28 tablet 0 06/19/20 Ex pired (ROBAXIN) 500 MG (500 mg) by 22 022 tabletIndications: mouth 4 times Acute bilateral daily for 7 days low back pain without sciatica traMADol (ULTRAM) Take 0.5-1 15 tablet 0 06/19/20 E xpired 50 MG tablets (25-50 tabletIndications: mg) by mouth Acute bilateral every 4 hours as low back pain needed for without sciatica severe pain or breakthrough pain Lidocaine Place 1 patch 5 patch 0 06/19/20 d (LIDOCARE) 4 % onto the skin PatchIndications: every 24 hours Acute bilateral for 5 days To low back pain prevent without sciatica lidocaine toxicity, patient should be patch free for 12 hrs daily. Active Problems Problem Noted Date Mixed hyperlipidemia 12/08/2015 Aortic valve disorder 10/04/2015 High cholesterol Hypertension CAD (coronary artery disease) Overview: mild/mod disease in RCA, INGRID to OM2 Past history of myocardial infarction Overview: 06/2010 Non QWave Stented coronary artery SOB (shortness of breath) Encounters Date Type Specialty Care Team Description 06/19/2022 Emergency EMERGENCY MEDICINE Scooter Okeefe Chest pain, unspecified type; MD Sha Acute bilateral low back pain without sc iatica; Shay Carrasco MD [facility] hypertension 06/19/2022 Travel from Last 3 Months Family History Medical History Relation Comments Cancer [...] Date Smoking Tobacco: Former Smokeless Tobacco: Never Tobacco Cessation: Counseling Given: No Comments: quit about 30 years ago Alcohol Use Standard Drinks/Week Comments Yes 0 (1 standard drink = 0.6 oz pure alcoho l) rare Sex Assigned at Date Recorded Not on file COVID-19 Exposure Response Date Recorded In the last 10 days, have you been in contact No / Unsure 06/19/2022 10:48 AM MAGISTRATE ASSISTANT with someone who was confirmed or suspected to have Coronavirus/COVID-19? Last Filed Vital Signs Vital Sign Reading Time Taken Comments Blood Pressure 162/74 06/19/2022 10:58 AM MAGISTRATE ASSISTANT Pulse 68 06/19/2022 10:58 AM MAGISTRATE ASSISTANT Temperature 36.7 ??C (98.1 ??F) 06/19/2022 10:58 AM MAGISTRATE ASSISTANT Respiratory Rate 18 06/19/2022 10:58 AM MAGISTRATE ASSISTANT Oxygen Saturation 100% 06/19/2022 10:58 AM MAGISTRATE ASSISTANT Inhaled Oxygen Concentration - - Weight 90.7 kg (200 lb) 06/19/2022 10:58 AM MAGISTRATE ASSISTANT Height 167.6 cm (5' 6) 06/19/2022 10:58 AM MAGISTRATE ASSISTANT Body Mass Index 32.28 06/19/2022 10:58 AM MAGISTRATE ASSISTANT Plan of Treatment Health Maintenance Due Date Last Done Comments ADVANCE CARE PLANNING 1940 ANNUAL REVIEW OF HM ORDERS 1940 FALL RISK ASSESSMENT 2003 MEDICARE ANNUAL WELLNESS 2003 VISIT DTAP/TDAP/TD IMMUNIZATION 05/08/2014 05/07/2014 (1 - Tdap) PHQ-2 (once per calendar 08/05/2021 year) COVID-19 Vaccine (5 - 02/17/2022 12/23/2021, 05/21/2021, Booster for Pfizer series) 10/08/2020, Additiona l history exists Pneumococcal Vaccine: 65+ Completed 05/07/2016, 08/14/2014 Years ZOSTER IMMUNIZATION Completed 10/20/2018, 08/24/2018 INFLUENZA VACCINE Completed 05/13/2022, 05/13/2021, 05/08/2020, Additional history exists IPV IMMUNIZATION Aged Out No longer eligi ble based on patient 's age to complete this topic MENINGITIS IMMUNIZATION Aged Out No longe r eligible based on patient 's age to complete this topic Procedures Procedure Name Priority Date/Time Associated Comments Diagnosis ROUTINE UA WITH STAT 06/19/2022 7:43 PM Result s for this MICROSCOPIC REFLEX TO MAGISTRATE ASSISTANT proced ure are in CULTURE the results section. TROPONIN T, HIGH STAT 06/19/2022 7:10 PM Resul ts for this SENSITIVITY MAGISTRATE ASSISTANT procedure are i n the results section. CT ABDOMEN PELVIS W STAT 06/19/2022 5:49 PM Re sults for this CONTRAST MAGISTRATE ASSISTANT procedure are i n the results section. CT LUMBAR SPINE W/O STAT 06/19/2022 5:47 PM Re sults for this CONTRAST MAGISTRATE ASSISTANT procedure are i n the results section. CT THORACIC SPINE W/O STAT 06/19/2022 5:46 PM Results for this CONTRAST MAGISTRATE ASSISTANT procedure are i n the results section. XR CHEST 2 VIEWS STAT 06/19/2022 5:00 PM Resul ts for this MAGISTRATE ASSISTANT procedure are i n the results section. EKG 12-LEAD, TRACING STAT 06/19/2022 4:43 PM R esults for this ONLY MAGISTRATE ASSISTANT procedure are i n the results section. CBC WITH PLATELETS & STAT 06/19/2022 4:29 PM R esults for this DIFFERENTIAL MAGISTRATE ASSISTANT procedure are i n the results section. EXTRA RED TOP TUBE STAT 06/19/2022 4:29 PM Res ults for this MAGISTRATE ASSISTANT procedure are i n the results section. EXTRA BLUE TOP TUBE STAT 06/19/2022 4:29 PM Re sults for this MAGISTRATE ASSISTANT procedure are i n the results section. CBC WITH PLATELETS AND STAT 06/19/2022 4:29 PM Results for this DIFFERENTIAL MAGISTRATE ASSISTANT procedure are i n the results section. EXTRA TUBE STAT 06/19/2022 4:29 PM Results f or this MAGISTRATE ASSISTANT procedure are i n the results section. NT PROBNP INPATIENT STAT 06/19/2022 4:29 PM Re sults for this MAGISTRATE ASSISTANT procedure are i n the results section. TROPONIN T, HIGH STAT 06/19/2022 4:29 PM Resul ts for this SENSITIVITY MAGISTRATE ASSISTANT procedure are i n the results section. COMPREHENSIVE STAT 06/19/2022 4:29 PM Results for this METABOLIC PANEL MAGISTRATE ASSISTANT procedure ar e in the results section. from Last 3 Months Results UA with Microscopic reflex to Culture (06/19/2022 7:43 PM MAGISTRATE ASSISTANT) [facility] Method Time Signature Color Urine Straw Colorless, 06/19/2022 [facility] Straw, Light 8:12 PM MAGISTRATE ASSISTANT Yellow, Yellow Appearance Urine Clear Clear 06/19/2022 [facility] Y 8:12 PM MAGISTRATE ASSISTANT Glucose Urine Negative Negative 06/19/2022 [facility] mg/dL 8:12 PM MAGISTRATE ASSISTANT Bilirubin Urine Negative Negative 06/19/2022 [facility] 8:12 PM MAGISTRATE ASSISTANT Ketones Urine Negative Negative 06/19/2022 [facility] mg/dL 8:12 PM MAGISTRATE ASSISTANT Specific [place] 1.005 1.003 - CHRISTIANO 06/19/2022 LABORATOR Y Urine 1.035 8:12 PM MAGISTRATE ASSISTANT Blood Urine Negative Negative 06/19/2022 LABORATORY 8:12 PM MAGISTRATE ASSISTANT pH Urine 6.5 5.0 - 7.0 06/19/2022 LABORATORY 8:12 PM MAGISTRATE ASSISTANT Protein Albumin Negative Negative 06/19/2022 LABORATORY Urine mg/dL 8:12 PM MAGISTRATE ASSISTANT Urobilinogen Normal Normal, 2.0 06/19/2022 LABORATORY Urine mg/dL 8:12 PM MAGISTRATE ASSISTANT Nitrite Urine Negative Negative 06/19/2022 LABORATORY 8:12 PM MAGISTRATE ASSISTANT Leukocyte Negative Negative 06/19/2022 LABORATORY Esterase Urine 8:12 PM MAGISTRATE ASSISTANT RBC Urine 0 <=2 /HPF 06/19/2022 LABORATORY 8:12 PM MAGISTRATE ASSISTANT WBC Urine <1 <=5 /HPF 06/19/2022 LABORATORY 8:12 PM MAGISTRATE ASSISTANT Specimen Anatomical Collection Method Collection Time Receive d Time (Source) Location / / Volume Laterality Urine MID-STREAM URINE Non-blood 06/19/2022 7:43 PM 06/19 7:56 SPECIMEN / Unknown Collection / MAGISTRATE ASSISTANT PM MAGISTRATE ASSISTANT Unknown Narrative LABORATORY - 06/19/2022 8:12 PM MAGISTRATE ASSISTANT Urine Culture not indicated Kris Lacey MD LAB - URINE ORDERABLES Performing Organization Address City/State/ZIP Code [place] [phone] Care Lab [address] [facility] Lab (1st floor, no room number) (ABNORMAL) Troponin T, High Sensitivity (06/19/2022 7:10 PM MAGISTRATE ASSISTANT)Only the most recent of2 resultswithin the time period is included. Analysis Performed At Patho logist Time Signature Troponin T, High 33 (H) <=22 ng/L 06/19/2022 LABORATOR Y Sensitivity 7:42 PM MAGISTRATE ASSISTANT Comment: Either a High Sensitivity Troponin T [...] 06/19 7:20 UPPER LIMB / Unknown PM MAGISTRATE ASSISTANT PM MAGISTRATE ASSISTANT Unknown Scooter Okeefe MD LAB - BLOOD ORDERABLES Performing Organization Address City/State/ZIP Code [place] [address] Care Lab [address] Lab (1st floor, no room number) CT Abdomen Pelvis w Contrast (06/19/2022 5:49 PM MAGISTRATE ASSISTANT) Anatomical Region Laterality Modality Abdomen/Pelvis, SUBRAD CT BODY, UMP CT ABDOMEN PELVIS, Computed Tomography RAD CT Specimen (Source) Anatomical Collection Method Collection Time Re ceived Time Location / / Volume Laterality 06/19/2022 5:49 PM MAGISTRATE ASSISTANT Impressions 06/19/2022 6:00 PM MAGISTRATE ASSISTANT IMPRESSION: 1. ??Small fat-containing upper abdomina l left paramedian ventral hernia. No bowel obstruction. 2. ??No appendicitis. No urinary calculi or hydronephrosis. 3. ??No acute fracture. Narrative 06/19/2022 6:00 PM MAGISTRATE ASSISTANT EXAM: CT ABDOMEN PELVIS W CONTRAST LOCATION: [facility] DATE/TIME: 06/19/2022 5:49 PM INDICATION: Lower [...] EXAM: CT ABDOMEN PELVIS W CONTRAST LOCATION: [facility] DATE/TIME: 06/19/2022 5:49 PM INDICATION: Lower [...] spine CT w/o contrast (06/19/2022 5:47 PM MAGISTRATE ASSISTANT) Anatomical Region Laterality Modality Spine, SUBRAD CT NEURO, UMP CT SPINE, RAD CT Computed Tomography Specimen (Source) Anatomical Collection Method Collection Time Re ceived Time Location / / Volume Laterality 06/19/2022 5:47 PM MAGISTRATE ASSISTANT Impressions 06/19/2022 6:21 PM MAGISTRATE ASSISTANT IMPRESSION: 1. No evidence of lumbar spine fracture. 2. Slight retrolisthesis of L3 in relati on to L4. 3. Degenerative disc disease with canal compromise and neural foraminal narrowing from the L2 through the L4-L5 disc space levels as described above. Narrative 06/19/2022 6:21 PM MAGISTRATE ASSISTANT EXAM: CT LUMBAR SPINE W/O CONTRAST LOCATION: [facility] DATE/TIME: 06/19/2022 5:47 PM INDICATION: lumbar [...] EXAM: CT LUMBAR SPINE W/O CONTRAST LOCATION: [facility] DATE/TIME: 06/19/2022 5:47 PM INDICATION: lumbar [...] Thoracic Spine w/o Contrast (06/19/2022 5:46 PM MAGISTRATE ASSISTANT) Anatomical Region Laterality Modality Spine, SUBRAD CT NEURO, UMP CT SPINE, RAD CT Computed Tomography Specimen (Source) Anatomical Collection Method Collection Time Re ceived Time Location / / Volume Laterality 06/19/2022 5:46 PM MAGISTRATE ASSISTANT Impressions 06/19/2022 6:09 PM MAGISTRATE ASSISTANT IMPRESSION: 1. Good anatomic alignment and vertebral body heights maintained. 2. No significant canal compromise or ne ural foraminal narrowing throughout thoracic spine. Narrative 06/19/2022 6:09 PM MAGISTRATE ASSISTANT EXAM: CT THORACIC SPINE W/O CONTRAST LOCATION: [facility] DATE/TIME: 06/19/2022 5:46 PM INDICATION: lower [...] EXAM: CT THORACIC SPINE W/O CONTRAST LOCATION: [facility] DATE/TIME: 06/19/2022 5:46 PM INDICATION: lower [...] XR Chest 2 Views (06/19/2022 5:00 PM MAGISTRATE ASSISTANT) Anatomical Region Laterality Modality Chest Computed Radiography Specimen (Source) Anatomical Collection Method Collection Time Re ceived Time Location / / Volume Laterality 06/19/2022 5:00 PM MAGISTRATE ASSISTANT Impressions 06/19/2022 5:02 PM MAGISTRATE ASSISTANT IMPRESSION: Heart size and pulmonary ves sels are normal. Very minimal interstitial prominence at lateral lung bases likely slight peripheral fibrosis. No focal consolidation or pleural effusion. Narrative 06/19/2022 5:02 PM MAGISTRATE ASSISTANT EXAM: XR CHEST 2 VIEWS LOCATION: [facility] DATE/TIME: 06/19/2022 5:00 PM INDICATION: chest pain, recent covid COMPARISON: None. Procedure Note Alvin Finn MD - 06/19/2022Formatt ing of this note might be different from the original. EXAM: XR CHEST 2 VIEWS LOCATION: [facility] DATE/TIME: 06/19/2022 5:00 PM INDICATION: chest pain, recent covid COMPARISON: None. IMPRESSION: Heart size and pulmonary ves sels are normal. Very minimal interstitial prominence at lateral lung bases likely slight peripheral fibrosis. No focal consolidation or pleural effusion. Kris Lacey MD IMG DIAGNOSTIC IMAGING ORDER MYNOR EKG 12-lead, tracing only (06/19/2022 4:43 PM MAGISTRATE ASSISTANT) [facility] gist Method Time Signature Systolic Blood mmHg RADIOLOGY Pressure RESULTS Diastolic Blood mmHg RADIOLOGY Pressure RESULTS Ventricular Rate 68 BPM RADIOLOGY RESULTS Atrial Rate 68 BPM RADIOLOGY RESULTS WA Interval 146 ms RADIOLOGY RESULTS QRS Duration 128 ms RADIOLOGY RESULTS QT 416 ms RADIOLOGY RESULTS QTc 442 ms RADIOLOGY RESULTS P [place] 60 degrees RADIOLOGY RESULTS R AXIS 9 degrees RADIOLOGY RESULTS T [place] 33 degrees RADIOLOGY RESULTS Interpretation ECG Sinus rhythm RADIOLOG Y Right bundle branch block RESU LTS Abnormal ECG When compared with ECG of 14-NOV-2016 13:24, Right bundle branch block is now Present Specimen Anatomical Collection Method Collection Time Receive d Time (Source) Location / / Volume Laterality 06/19/2022 4:43 PM MAGISTRATE ASSISTANT 10:48 PM MAGISTRATE ASSISTANT Kris Lacey MD ECG ORDERABLES Performing Organization Address City/State/ZIP Code Phon e Number RADIOLOGY RESULTS Extra Red Top Tube (06/19/2022 4:29 PM MAGISTRATE ASSISTANT) athologist Signature Hold Specimen JIC 06/19/2022 [facility] 5:47 PM MAGISTRATE ASSISTANT Specimen Anatomical Collection Method / Collection Time Recei melodie Time (Source) Location / Volume Laterality Blood VENOUS LINE / Venipuncture / 06/19/2022 4:29 2 4:37 Unknown Unknown PM MAGISTRATE ASSISTANT PM MAGISTRATE ASSISTANT Scooter Okeefe MD LAB - BLOOD ORDERABLES Performing Organization Address City/[facility]/ZIP Code [place] [address] Care Lab [address] Lab (1st floor, no room number) Extra Blue Top Tube (06/19/2022 4:29 PM MAGISTRATE ASSISTANT) P athologist Signature Hold Specimen JIC 06/19/2022 [facility] 5:47 PM MAGISTRATE ASSISTANT Specimen Anatomical Collection Method / Collection Time Recei melodie Time (Source) Location / Volume Laterality Blood VENOUS LINE / Venipuncture / 06/19/2022 4:29 4:36 Unknown Unknown PM MAGISTRATE ASSISTANT PM MAGISTRATE ASSISTANT Scooter Okeefe MD LAB - BLOOD ORDERABLES Performing Organization Address [facility]/ZIP Code [place] [address] Care Lab [address] Lab (1st floor, no room number) (ABNORMAL) CBC with platelets and differential (06/19/2022 4:29 PM MAGISTRATE ASSISTANT) Patholo gist Method Time Signature WBC Count 12.4 (H) 4.0 - 06/19/2022 [facility] 11.0 4:40 PM MAGISTRATE ASSISTANT 10e3/uL RBC Count 4.53 4.40 - 06/19/2022 [facility] 5.90 4:40 PM MAGISTRATE ASSISTANT 10e6/uL Hemoglobin 13.0 (L) 13.3 - 06/19/2022 [facility] 17.7 g/dL 4:40 PM MAGISTRATE ASSISTANT Hematocrit 41.6 40.0 - 06/19/2022 [facility] 53.0 % 4:40 PM MAGISTRATE ASSISTANT MCV 92 78 - 100 06/19/2022 [facility] fL 4:40 PM MAGISTRATE ASSISTANT MCH 28.7 26.5 - 06/19/2022 [facility] 33.0 pg 4:40 PM MAGISTRATE ASSISTANT MCHC 31.3 (L) 31.5 - 06/19/2022 [facility] 36.5 g/dL 4:40 PM MAGISTRATE ASSISTANT RDW 13.8 10.0 - 06/19/2022 [facility] 15.0 % 4:40 PM MAGISTRATE ASSISTANT Platelet Count 181 150 - 450 06/19/2022 [facility] 10e3/uL 4:40 PM MAGISTRATE ASSISTANT % Neutrophils 67 % 06/19/2022 [facility] 4:40 PM MAGISTRATE ASSISTANT % Lymphocytes 21 % 06/19/2022 [facility] 4:40 PM MAGISTRATE ASSISTANT % Monocytes 10 % 06/19/2022 [facility] 4:40 PM MAGISTRATE ASSISTANT % Eosinophils 1 % 06/19/2022 [facility] 4:40 PM MAGISTRATE ASSISTANT % Basophils 0 % 06/19/2022 [facility] 4:40 PM MAGISTRATE ASSISTANT % Immature 1 % 06/19/2022 [facility] Granulocytes 4:40 PM MAGISTRATE ASSISTANT NRBCs per 100 0 <1 /100 06/19/2022 [facility] WBC 4:40 PM MAGISTRATE ASSISTANT Absolute 8.4 (H) 1.6 - 8.3 06/19/2022 [facility] Neutrophils 10e3/uL 4:40 PM MAGISTRATE ASSISTANT Absolute 2.6 0.8 - 5.3 06/19/2022 [facility] Lymphocytes 10e3/uL 4:40 PM MAGISTRATE ASSISTANT Absolute 1.2 0.0 - 1.3 06/19/2022 [facility] Monocytes 10e3/uL 4:40 PM MAGISTRATE ASSISTANT Absolute 0.1 0.0 - 0.7 06/19/2022 [facility] Eosinophils 10e3/uL 4:40 PM MAGISTRATE ASSISTANT Absolute 0.0 0.0 - 0.2 06/19/2022 [facility] Basophils 10e3/uL 4:40 PM MAGISTRATE ASSISTANT Absolute 0.1 <=0.4 06/19/2022 [facility] Immature 10e3/uL 4:40 PM MAGISTRATE ASSISTANT Granulocytes Absolute NRBCs 0.0 10e3/uL 06/19/2022 [facility] 4:40 PM MAGISTRATE ASSISTANT Specimen Anatomical Collection Method / Collection Time Recei melodie Time (Source) Location / Volume Laterality Blood VENOUS LINE / Venipuncture / 06/19/2022 4:29 4:36 Unknown Unknown PM MAGISTRATE ASSISTANT PM MAGISTRATE ASSISTANT Kris Lacey MD LAB - BLOOD ORDERABLES Performing Organization Address City/State/ZIP Code [place] [phone] Care Lab [address] Lab (1st floor, no room number) Nt probnp inpatient (BNP) (06/19/2022 4:29 PM MAGISTRATE ASSISTANT) P athologist Signature N terminal Pro 1,249 0 - 1,800 06/19/2022 LABORATORY BNP Inpatient pg/mL 5:25 PM MAGISTRATE ASSISTANT Comment: Reference range shown and results flagge [...] / 06/19/2022 4:29 4:37 Unknown Unknown PM MAGISTRATE ASSISTANT PM MAGISTRATE ASSISTANT Kris Lacey MD LAB - BLOOD ORDERABLES Performing Organization Address City/State/ZIP Code [place] [address] Care Lab [address] Lab (1st floor, no room number) (ABNORMAL) Comprehensive metabolic panel (06/19/2022 4:29 PM MAGISTRATE ASSISTANT) Patholo gist Method Time Signature Sodium 135 (L) 136 - 145 06/19/2022 LABORATORY mmol/L 5:20 PM MAGISTRATE ASSISTANT Potassium 4.1 3.4 - 5.3 06/19/2022 LABORATORY mmol/L 5:20 PM MAGISTRATE ASSISTANT Chloride 96 (L) 98 - 107 06/19/2022 LABORATORY mmol/L 5:20 PM MAGISTRATE ASSISTANT Carbon Dioxide 28 22 - 29 06/19/2022 LABORATORY (CO2) mmol/L 5:20 PM MAGISTRATE ASSISTANT Anion Gap 11 7 - 15 06/19/2022 LABORATORY mmol/L 5:20 PM MAGISTRATE ASSISTANT Urea Nitrogen 9.0 8.0 - 23.0 06/19/2022 LABORATORY mg/dL 5:20 PM MAGISTRATE ASSISTANT Creatinine 1.11 0.67 - 06/19/2022 LABORATORY 1.17 mg/dL 5:20 PM MAGISTRATE ASSISTANT Calcium 9.2 8.8 - 10.2 06/19/2022 LABORATORY mg/dL 5:20 PM MAGISTRATE ASSISTANT Glucose 117 (H) 70 - 99 06/19/2022 [facility] mg/dL 5:20 PM MAGISTRATE ASSISTANT Alkaline 79 40 - 129 06/19/2022 [facility] Phosphatase U/L 5:20 PM MAGISTRATE ASSISTANT AST 24 10 - 50 06/19/2022 [facility] U/L 5:20 PM MAGISTRATE ASSISTANT Comment: Specimen is hemolyzed which can falsely elevate AST. Analysis of a non-hemolyzed specimen may result in a l ower value. ALT 14 10 - 50 U/L 06/19/2022 5:20 PM MAGISTRATE ASSISTANT [facility] Protein Total 6.9 6.4 - 8.3 g/dL 06/19/2022 5:20 PM CS T [facility] Albumin 3.6 3.5 - 5.2 g/dL 06/19/2022 5:20 PM MAGISTRATE ASSISTANT [facility] Bilirubin Total 1.3 (H) <=1.2 mg/dL 06/19/2022 5:20 PM MAGISTRATE ASSISTANT [facility] GFR Estimate 65 >60 mL/min/1.73m2 06/19/2022 5:20 PM MAGISTRATE ASSISTANT [facility] Comment: Effective July 25, 2021 eGF Rcr in adults is calculated using the 2020 CKD-EPI creatinine equation which includ es age and gender (Susana et al., NEJM, DOI: 10.1056/AZZChd0627306) Specimen Anatomical Collection Method / Collection Time Recei melodie Time (Source) Location / Volume Laterality Blood VENOUS LINE / Venipuncture / 06/19/2022 4:29 2 4:37 Unknown Unknown PM MAGISTRATE ASSISTANT PM MAGISTRATE ASSISTANT Kris Lacey MD LAB - BLOOD ORDERABLES Performing Organization Address City/State/ZIP Code [place] [address] Care Lab [address] Lab (1st floor, no room number) from Last 3 Months Insurance Payer Benefit Plan / Subscriber ID Effective Dates Phone Addre ss Type Group [facility] MEDIC[facility] [id number] 2019-Present [phone] [address] [place] [address] Advance Directives For more information, please contact: [phone] Latest Code Status on File Code Status Date Activated Date Inactivated Comments Full Code 11/11/2016 10:06 AM 08/26/2019 7:12 AM Code Status History Code Status Date Activated Date Inactivated Comments Full Code 11/10/2016 8:03 PM 11/11/2016 10:06 AM Care Teams Sign Language Teacher Relationship Specialty Start Date End Date Ronnie Myers PCP - General Family Medicine 09/11/21 [facility] [address] [place] [address] Zen Rousseau MD MD Family Practice 07/31/12 [facility] [address] [facility] [place] [phone] Mali Dowd APRN Assigned Heart and Vascular 10/08/21 [facility] Provider [address] [place] [id number]
--- OUTSIDE RECORDS SUMMARY | 2022-07-09 14:43 | XMS_ITS | Encounter Summary ---
:1940 Author Organization [place] Address [facility] [place] [address] Care Team Providers Name Role Phone Zen Rousseau MD Unavailable Senthil Mckeon MD Primary Care Provider [phone] Ta Trimble MD Unavailable [phone] Encounter Details Date Type Department Care [...] on filedocumented in this encounter Care Teams Wellhead Pumper Relationship Specialty Start Date End Date Senthil Mckeon, PCP - General 12/03/18 Zen Rousseau MD MD Family Practice 07/31/[address] [address] Ta Trimble Assigned Heart and 05/27/20 2 MD Jerrell Vascular Provider [address] [place] [address] documented as of this encounter
--- OUTSIDE RECORDS SUMMARY | 2022-07-09 14:43 | XMS_ITS | Encounter Summary ---
:1940 Author Organization [facility] Address [address] [place] [id number] Selected Encounter This section includes the information on record at DC for the Encounter. Date/Time Encounter Type Encounter Reason Provider Source Description Jun 21, 2022 08:35 Outpatient ADMIN PAT ACTIVTIES MAGALI TYLER AM Encounter (MASNONCT) IHE Encounter Template Text not used by DC Encounter Notes: All associated encounter notes This section contains the clinical notes associated to the Encounter. Date/Time Encounter Note(s) Provider Source Jun 19, 2022 10:45 AM NONVA NOTE: SARAH BAJWA IS [facility] LOCAL TITLE: COMMUNITY CARE-CAPRICE SELF PRESENTIN G CARE COORD PLAN STANDARD TITLE: NONVA NOTE DATE OF NOTE: JUN 19, 2022@10:45 ENTRY DATE: JUN 21, 2022@08:36:14 AUTHOR: SARAH BAJWA EXP COSIGNER: URGENCY: STATUS: COMPLETED COMMUNITY CARE-CAPRICE SELF PRESENTING CARE CO ORD PLAN NOTE Has ADDENDA Emergency Notification Intake Date Presenting to the Facility: Jun Method of Contact: Notified from [facility] worklist Notification ID: [id number] [facility] Referral #: [facility] Hospital Name: Hospital: [facility] Address: City: [place] State: [place] Zip Code: Phone : [facility] Point of Contact: Name: Phone: Chief complaint: SEVERE BACK PAIN Primary Diagnosis: Disposition Discharged Date of discharge: Jun Discharge to home POM Review /geovanny/ SARAH BAJWA Trade Mark Examiner(AOD) Signed: 06/21/2022 08:37 Receipt Acknowledged By: 06/22/2022 07:16 /es/ NICK CORADO RN UTILIZATION MANAGEMENT for MAGALI TYLER 06/22/2022 ADDENDUM STATUS: COMPLETED Cosigning the correct UM for this hospital also does not have a pact team at the [facility]. /es/ NICK CORADO RN UTILIZATION MANAGEMENT Signed: 06/22/2022 07:35 Receipt Acknowledged By: 06/29/2022 16:04 /es/ MARCY ALSTON RN [facility] UTILIZATION MANAGEMENT 06/29/2022 ADDENDUM STATUS: COMPLETED seen in the ED- records sent to [facility] to be uploaded. Records also available in [facility] and Documents widget. Please review for plan of care and any follow up needed. Thank you. Requested eligibility to mail a packet of inform ation to regarding VA benefits. /es/ MARCY ALSTON RN [facility] UTILIZATION MANAGEMENT Signed: 06/29/2022 16:07
--- OUTSIDE RECORDS SUMMARY | 2022-07-09 14:43 | XMS_ITS | Encounter Summary ---
:1940 Author Organization [place] Address [address] [facility] [address] Care Team Providers Name Role Phone Zen Rousseau MD Unavailable Ta Trimble MD Unavailable [phone] Ronnie Myers Primary Care Provider Reason for Referral Consultation (Routine: Next available opening) - Pending Review Specialty Diagnoses / Procedures Referred By Contact Refer red To Contact Cardiovascular Disease Diagnoses Nonrheumatic aortic valve stenosis Mali Dowd APRN CNP [address] [place] [address] Referral ID Status Reason Start Date Expiration Date Visits V isits Requested Authorized [id number] Pending 10/04/2021 10/04/2022 1 1 Review V Testing (Routine) - Pending Review Specialty Diagnoses / Procedures Referred By Contact Refer red To Contact Diagnoses Nonrheumatic aortic valve stenosis Mali Dowd APRN CNP Procedures Echocardiogram Complete ZZHC TTE W/DOPPLER, COMPLETE ZZHC ECHO COMPLETE W DOPPLER W CONTRAST ZZHC ECHO COMPLETE W DOPPLER W/O CONTRAST ZZHC IV PUSH SINGLE, INITIAL SUBSTANCE ZZHC US GUIDE FOR PERICARDIOCENTESIS [address] Z[facility] ECHO MYOCARD BX ZZC INJECTION, PERFLUTREN LIPID MICROSPHERES, PER ML ZZHC STATISTIC IV PUSH SINGLE INITIAL SUBSTANCE RI ECHO MYOCARD BX RI INJECTION, PERFLUTREN LIPID MICROSPHERES, PER ML RI TTE W/DOPPLER, COMPLETE [place] [address] RI IV PUSH SINGLE, INITIAL S UBSTANCE RI TTE W/DOPPLER, COMPLETE RI TTE W/DOPPLER, COMPLETE HC US GUIDE FOR PERICARDIOCENTESIS HC ECHO MYOCARD BX HC IV PUSH SINGLE, INITIAL SUBSTANCE HC STATISTIC IV PUSH SINGLE INITIAL SUBSTANCE HC ECHO COMPLETE W DOPPLER W CONTRAST HC ECHO COMPLETE W DOPPLER W/O CONTRAST Referral ID Status Reason Start Date Expiration Date Visits V isits Requested Authorized [id number] Pending 10/04/2021 10/04/2022 1 1 Review NAGE DESIGN COORDINATOR Reason for Visit Reason Comments Follow Up CAD, HTN (Routine) - Closed Specialty Diagnoses / Procedures Referred By Contact Refer red To Contact Diagnoses Essential hypertension Nonrheumatic aortic valve stenosis Hyperlipidemia LDL goal <70 Coronary artery disease involving [place] coronary artery of [place] heart without angina pectoris Ta Tribmle MD [address] [place] [id number] Referral ID Status Reason Start Date Expiration Date Visits Requ ested Visits Authorized [id number] Closed 10/25/2020 10/25/2021 1 1 Encounter Details Date Type Department Care Team Description 10/04/2021 Office Visit [facility] Mali Beard [facility] hypertension; [facility] JERMAINE BUTLER Nonrheumatic aortic valve stenosis; [place] [address] Hyperlipidemia LDL goal <70; [address] [address] Coronary artery disease involving [place] coronary artery of [place] heart without angina pectoris [address] [place] [address] [place] [phone] (Work) [phone] Social History Tobacco Use Types Packs/Day Years [...] with No / Unsure 10/04/2021 2:30 PM DRAINAGE DESIGN COORDINATOR someone who was confirmed or suspected to have Coronavirus / COVID-19? documented as of this encounter Last Filed Vital Signs Vital Sign Reading Time Taken Comments Blood Pressure 104/50 10/04/2021 2:44 PM DRAINAGE DESIGN COORDINATOR Pulse 56 10/04/2021 2:44 PM DRAINAGE DESIGN COORDINATOR Temperature - - Respiratory Rate - - Oxygen Saturation 97% 10/04/2021 2:44 PM DRAINAGE DESIGN COORDINATOR Inhaled Oxygen Concentration - - Weight 92.6 kg (204 lb 3.2 oz) 10/04/2021 2:44 PM DRAINAGE DESIGN COORDINATOR Height 167.6 cm (5' 6) 10/04/2021 2:44 PM DRAINAGE DESIGN COORDINATOR Body Mass Index 32.96 10/04/2021 2:44 PM DRAINAGE DESIGN COORDINATOR documented in this encounter Progress Notes Mali Dowd, JERMAINE INTERNSHIP COORDINATOR - 10/04/2021 3:00 PM CST HISTORY OF PRESENT ILLNESS: This is a 81 year old male who follows with Dr Trimble at [facility] His past medical history includes: Coronary artery disease, aortic valve disease, hypertension, hyperlipidemia, type IIdiabetes, COPD, obesity, and sleep apnea. Mr Michele suffered an inferolateral CO and received a stent to his OM [...] for an annual review and ECHO Mr Michele comes in today with his who assists [...] AND PLAN: Coronary Artery Disease: -s/p inferolateral CO and stenting to OM (2009) -NUC stress [...] goal <70 ??? Coronary artery disease involving [place] coronary artery of [place] heart without angina pectoris CURRENT MEDICATIONS: Current [...] Self-Exams Not Asked ??? Parent/sibling w/ CABG, CO or angioplasty before 65F 55M? Not Asked [...] person and place CC Ta Trimble MD [address] [place] [id number] NAGE DESIGN COORDINATOR documented in this encounter Plan of Treatment [...] and unspecified hyperlipidemia Coronary artery disease involving [place] coronary artery of [place] heart without angina pectoris documented in this encounter Care Teams Dynamometer Tester Relationship Specialty Start Date End Date Ronnie Myers PCP - General Family Medicine 09/11/21 [facility] [address] [place] [address] Zen Rousseau MD MD Family Practice 07/31/[address] [phone] Ta Trimble Assigned Heart and 05/27/20 2 MD Jerrell Vascular Provider [address] [place] [address] [phone] documented as of this encounter
--- OUTSIDE RECORDS SUMMARY | 2022-07-09 14:43 | XMS_ITS | Encounter Summary ---
:1940 Author Organization [place] Address [facility] [place] [address] Care Team Providers Name Role Phone Zen Rousseau MD Unavailable Ta Trimble MD Unavailable [phone] Ronnie yMers Primary Care Provider Encounter Details Date Type [...] with No / Unsure 09/28/2021 7:14 AM DIRECTOR SURGICAL someone who was confirmed or suspected to have Coronavirus / COVID-19? documented as of this encounter Plan of Treatment Not on filedocumented as of this encounter Visit Diagnoses Not on filedocumented in this encounter Care Teams Hot Roll Laminator Relationship Specialty Start Date End Date Ronnie Myers PCP - General Family Medicine 09/11/21 [facility] [address] [place] [address] Zen Rousseau MD MD Family Practice 07/31/12 [facility] [address] [place] [phone] Ta Trimble Assigned Heart and 05/27/20 2 MD Jerrell Vascular Provider [address] [place] [address] documented as of this encounter
--- OUTSIDE RECORDS SUMMARY | 2022-07-09 14:43 | XMS_ITS | Encounter Summary ---
:1940 Author Organization [place] Address [address] [facility] [place] [address] Care Team Providers Name Role Phone Zen Rousseau MD Unavailable Ta Trimble MD Unavailable Ronnie Myers Primary Care Provider Reason for Referral CV Testing (Routine) - Closed Specialty Diagnoses / Procedures Referred By Contact Refer red To Contact Diagnoses Essential hypertension Nonrheumatic aortic valve stenosis Hyperlipidemia LDL goal <70 Coronary artery disease involving [place] coronary artery of [place] heart without angina pectoris Ta Trimble, Procedures Echocardiogram Complete ZZHC TTE W/DOPPLER, COMPLETE ZZHC ECHO COMPLETE W DOPPLER W CONTRAST ZZHC ECHO COMPLETE W DOPPLER W/O CONTRAST ZZHC IV PUSH SINGLE, INITIAL SUBSTANCE ZZHC US GUIDE FOR PERICARDIOCENTESIS MD TAI ECHO MYOCARD BX ZZC INJECTION, PERFLUTREN LIPID MICROSPHERES, PER ML ZZHC STATISTIC IV PUSH SINGLE INITIAL SUBSTANCE ND ECHO MYOCARD BX ND INJECTION, PERFLUTREN LIPID MICROSPHERES, PER ML ND TTE W/DOPPLER, COMPLETE [address] ND IV PUSH SINGLE, INITIAL S UBSTANCE ND TTE W/DOPPLER, COMPLETE ND TTE W/DOPPLER, COMPLETE HC US GUIDE FOR PERICARDIOCENTESIS HC ECHO MYOCARD BX HC IV PUSH SINGLE, INITIAL SUBSTANCE HC STATISTIC IV PUSH SINGLE [place] [address] HC ECHO COMPLETE W DOPPLER W CONTRAST HC ECHO COMPLETE W DOPPLER W/O CONTRAST Referral ID Status Reason Start Date Expiration Date Visits Requ ested Visits Authorized [id number] Closed 10/25/2020 10/25/2021 1 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 CV Testing (Routine) - Closed Specialty Diagnoses / Procedures Referred By Contact Refer red To Contact Diagnoses Essential hypertension Nonrheumatic aortic valve stenosis Hyperlipidemia LDL goal <70 Coronary artery disease involving [place] coronary artery of [place] heart without angina pectoris Ta Trimble, Procedures Echocardiogram Complete ZZHC TTE W/DOPPLER, COMPLETE ZZHC ECHO COMPLETE W DOPPLER W CONTRAST ZZHC ECHO COMPLETE W DOPPLER W/O CONTRAST ZZHC IV PUSH SINGLE, INITIAL SUBSTANCE ZZHC US GUIDE FOR PERICARDIOCENTESIS MD TAI ECHO MYOCARD BX ZZC INJECTION, PERFLUTREN LIPID MICROSPHERES, PER ML ZZHC STATISTIC IV PUSH SINGLE INITIAL SUBSTANCE ND ECHO MYOCARD BX ND INJECTION, PERFLUTREN LIPID MICROSPHERES, PER ML ND TTE W/DOPPLER, COMPLETE [address] ND IV PUSH SINGLE, INITIAL S UBSTANCE ND TTE W/DOPPLER, COMPLETE ND TTE W/DOPPLER, COMPLETE HC US GUIDE FOR PERICARDIOCENTESIS HC ECHO MYOCARD BX HC IV PUSH SINGLE, INITIAL SUBSTANCE HC STATISTIC IV PUSH SINGLE [place] [address] HC ECHO COMPLETE W DOPPLER W CONTRAST HC ECHO COMPLETE W DOPPLER W/O CONTRAST Referral ID Status Reason Start Date Expiration Date Visits Requ ested Visits Authorized [id number] Closed 10/25/2020 10/25/2021 1 1 Encounter Details Date Type Department Care Team Description 09/28/2021 Hospital Encounter [facility] Ta Chambers Essential hypertension; [facility] MD Jerrell Nonrheumatic aortic valve stenosis; [facility] Hyperlipidemia LDL goal <70; [address] [facility] Coronary artery disease involving [place] coronary artery of [place] heart without angina pectoris Drive [address] [place] [phone] Social History Tobacco Use Types Packs/Day Years [...] with No / Unsure 09/28/2021 7:14 AM 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 documented as of this encounter Medications at Time of Discharge Medication Sig Dispensed Refills Start Date End Date aspirin 81 MG tablet Take 81 mg by mouth 0 daily budesonide-formoterol Inhale 2 puffs into 0 (SYMBICORT) 80-4.5 the lungs 2 times MCG/ACT Inhaler daily Cyanocobalamin (VITAMIN Take 500 mcg by mouth 0 B 12 PO) daily nitroglycerin Place 1 tablet (0.4 25 tablet 3 10/04/2015 (NITROSTAT) 0.4 MG SL mg) under the tongue tabletIndications: every 5 minutes as Coronary artery disease needed for chest pain involving [place] coronary artery of [place] heart without angina pectoris pantoprazole (PROTONIX) Take 40 mg by mouth 0 40 MG enteric coated every 48 hours tablet rosuvastatin (CRESTOR) Take 1 tablet (40 mg) 90 tablet 2 40 MG by mouth daily tabletIndications: Mixed hyperlipidemia, Coronary artery disease involving [place] coronary artery of [place] heart without angina pectoris albuterol (2.5 MG/3ML) Take 1 vial by 0 06/19/2022 0.083% nebulizer nebulization every 6 solution hours as needed for shortness of breath / dyspnea or wheezing atorvastatin (LIPITOR) 0 10/21/2020 20 MG tablet furosemide (LASIX) 20 Take 1 tablet (20 mg) 90 tablet 3 10/04/2021 MG tabletIndications: by mouth as needed Essential hypertension, (Use as Directed for Coronary artery disease edema) involving [place] coronary artery of [place] heart without angina pectoris losartan (COZAAR) 50 MG Take 1 tablet (50 mg) 90 tablet 3 0 10/25/2020 10/04/2021 tabletIndications: by mouth daily Essential hypertension metFORMIN (GLUCOPHAGE) TAKE ONE TABLET BY 0 09/0706/19/2022 500 MG tablet MOUTH TWICE DAILY with meals metoprolol tartrate Take 1 tablet (25 mg) 180 tablet 3 10/2510/04/2021 (LOPRESSOR) 25 MG by mouth 2 times tabletIndications: daily Essential hypertension VITAMIN D, Take 1,000 Units by 0 06/19 CHOLECALCIFEROL, PO mouth daily documented as of this encounter Plan of Treatment Not on filedocumented as of this encounter Procedures Procedure Name Priority Date/Time Associated Diagnosis Comme nts ECHO COMPLETE Routine 09/28/2021 7:45 AM Essential Results for this OTR [employer] hypertension procedure are in the Nonrheumatic aortic results section. valve stenosis Hyperlipidemia LDL goal <70 Coronary artery disease involving [place] coronary artery of [place] heart without angina pectoris documented in this encounter Results ECHO COMPLETE (09/28/2021 7:45 AM OTR [employer]) athologist Signature LVEF 55-60% CARDIOLOGY RESULTS Anatomical Region Laterality Modality Echocardiography Specimen (Source) Anatomical Collection Method Collection Time Re ceived Time Location / / Volume Laterality 09/28/2021 7:21 AM OTR [employer] Narrative 09/28/2021 10:53 AM [facility] [id number]^JEROME^TA^[facility] [address] [place] [address] Name: DONALDO BAUTISTA : 1940 Study Date: 09/28/2021 07:21 AM Age: 81 yrs Gender: Male Patient Location: [facility] Reason For Study: Essential hypertension , Nonrheumatic aortic valve stenosis, Hype Ordering Physician: TA TRIMBLE [facility] Referring Physician: Ronnie Myers Performed By: Frank [...] note might be different from the original. [id number]^JEROME^TA^[facility] [address] [place] [address] Name: DONALDO BAUTISTA : 1940 Study Date: 09/28/2021 07:21 AM Age: 81 yrs Gender: Male Patient Location: [facility] Reason For Study: Essential hypertension , Nonrheumatic aortic valve stenosis, Hype Ordering Physician: TA TRIMBLE [facility] Referring Physician: Ronnie Myers Performed By: Frank [...] and unspecified hyperlipidemia Coronary artery disease involving [place] coronary artery of [place] heart without angina pectoris documented in this encounter Care Teams Tankroom Tender Relationship Specialty Start Date End Date Ronnie Myers PCP - General Family Medicine 09/11/21 [facility] [address] [place] [address] Zen Rousseau MD MD Family Practice 07/31/[address] [phone] Ta Trimble Assigned Heart and 05/27/20 Angelic Allan MD Vascular Provider [address] [place] [phone] documented as of this encounter
--- OUTSIDE RECORDS SUMMARY | 2022-07-09 14:43 | XMS_ITS | Continuity of Care Document ---
:1940 Author Organization [facility] Care Team Providers Name Role Phone [facility] Unavailable Unavailable Encounters Combined list of: 1) Encounters from Department of Veterans Affairs facilities going back up to the last 18 months. 2) Encounters from the Department of Defense facilities going back up to 280 months. Location Location Encounter Encounter Reason Attending ADM DC Stat us Disposition Source Details Type Number For Provider Date Date Visit Outpatient [id number] SA JAYSON 06/21 [place] [facility]counter [id number] [facility]
--- OUTSIDE RECORDS SUMMARY | 2022-07-09 14:43 | XMS_ITS | Encounter Summary ---
:1940 Author Organization [place] Address [facility] [place] [address] Care Team Providers Name Role Phone Zen Rousseau MD Unavailable Ronnie Myers Primary Care Provider Mali Dowd APRN OFFICE LEAD Unavailable Encounter Details Date Type Department Care Team Description 06/19/2022 Travel Social History Tobacco Use Types Packs/Day [...] contact No / Unsure 06/19/2022 10:48 AM DIGITAL RETOUCHER with someone who was confirmed or suspected to have Coronavirus/COVID-19? documented as of this encounter Plan of Treatment Not on filedocumented as of this encounter Visit Diagnoses Not on filedocumented in this encounter Care Teams Kier Tender Relationship Specialty Start Date End Date Ronnie Myers PCP - General Family Medicine 09/11/21 [facility] [address] [place] [address] Zen Rousseau MD MD Family Practice 07/31/12 [facility] [address] [place] [phone] Mali Dowd, DIGITAL ASSET MANAGER Assigned Heart and Vascular 10/08/21 OFFICE LEAD Provider [address] [place] [id number] documented as of this encounter
--- OUTSIDE RECORDS SUMMARY | 2022-07-09 14:43 | XMS_ITS | Encounter Summary ---
:1940 Author Organization [place] Address [address] [place] [address]. [place] [address] Care Team Providers Name Role Phone Zen Rousseau MD Unavailable Senthil Mckeon MD Primary Care Provider Ta Trimble MD Unavailable Ronnie Myers Primary Care Provider Mali Dowd APRN AUTOMATION TECHNICIAN Unavailable Encounter Details Date Type Department Care Team Description 09/07/2021 External Order [facility] Outside, Provide r Results Molecular Diagnostic s [address] [place] [address] Social History Tobacco Use Types Packs/Day Years [...] 3:00 PM R esults for this DIFFERENTIAL FINANCIAL UNDERWRITER procedure are i n the results section. RENAL PANEL Routine 09/07/2021 3:00 PM Results f or this FINANCIAL UNDERWRITER procedure are i n the results section. HEPATIC FUNCTION PANEL Routine 09/07/2021 3:00 PM Results for this FINANCIAL UNDERWRITER procedure are i n the results section. ERYTHROCYTE Routine 09/07/2021 3:00 PM Results f or this SEDIMENTATION RATE FINANCIAL UNDERWRITER procedure are in AUTO the results section. VITAMIN B12 Routine 09/07/2021 3:00 PM Results f or this FINANCIAL UNDERWRITER procedure are i n the results section. documented in this encounter Results Vitamin B12 (09/07/2021 3:00 PM FINANCIAL UNDERWRITER) athologist Signature Vitamin B12 841 243 - 894 NON-INTERFACED (External) pg/mL (ONBASE SCANS) Specimen (Source) Anatomical Collection Method Collection Time Re ceived Time Location / / Volume Laterality Blood 09/07/2021 3:00 PM FINANCIAL UNDERWRITER Narrative [facility] - 10/04/2021 8:44 AM FINANCIAL UNDERWRITER Verified by Olga Lidia Beard on 10/04/2021. Provider Outside LAB - BLOOD ORDERABLES Performing Organization Address City/State/ZIP Code Phon e Number [facility] NON-INTERFACED (ONBASE SCANS) Erythrocyte sedimentation rate auto (09/07/2021 3:00 PM FINANCIAL UNDERWRITER) athologist Signature ESR (External) 9 0 - 15 NON-INTERFACED MM/HR (ONBASE SCANS) Specimen (Source) Anatomical Collection Method Collection Time Re ceived Time Location / / Volume Laterality Blood 09/07/2021 3:00 PM FINANCIAL UNDERWRITER Narrative [facility] - 10/04/2021 8:44 AM FINANCIAL UNDERWRITER Verified by Olga Lidia Beard on 10/04/2021. Provider Outside LAB - BLOOD ORDERABLES Performing Organization Address City/State/ZIP Code Phon e Number [facility] NON-INTERFACED (ONBASE SCANS) (ABNORMAL) CBC with Platelets & Differential (09/07/2021 3:00 PM FINANCIAL UNDERWRITER) [facility] gist Method Time Signature WBC Count 8.6 [...] / Volume Laterality Blood 09/07/2021 3:00 PM FINANCIAL UNDERWRITER Narrative [facility] - 10/04/2021 8:44 AM FINANCIAL UNDERWRITER Verified by Olga Lidia Beard on 10/03/2021. Provider Outside LAB - BLOOD ORDERABLES Performing Organization Address City/State/ZIP Code Phon e Number [facility] NON-INTERFACED (ONBASE SCANS) Hepatic function panel (09/07/2021 3:00 PM FINANCIAL UNDERWRITER) P athologist Signature Protein Total 6.6 6.0 - 8.3 NON-INTERFACED (External) g/dL (ONBASE SCANS) Bilirubin Total 1.3 0.1 - 1.5 NON-INTERFACED (External) mg/dl (ONBASE SCANS) Alk Phosphatase 56 40 - 150 NON-INTERFACED (External) U/L (ONBASE SCANS) Specimen (Source) Anatomical Collection Method Collection Time Re ceived Time Location / / Volume Laterality Blood 09/07/2021 3:00 PM FINANCIAL UNDERWRITER Narrative [facility] - 10/04/2021 8:44 AM FINANCIAL UNDERWRITER Verified by Olga Lidia Beard on 0 10/03/2021. Provider Outside LAB - BLOOD ORDERABLES Performing Organization Address City/State/[facility] Code Phon e Number [facility] NON-INTERFACED (ONBASE SCANS) Renal panel (09/07/2021 3:00 PM FINANCIAL UNDERWRITER) athologist Signature Urea Nitrogen 21 7 - [...] / Volume Laterality Blood 09/07/2021 3:00 PM FINANCIAL UNDERWRITER Narrative [facility] - 10/04/2021 8:44 AM FINANCIAL UNDERWRITER Verified by Kati Beard J10/03. Provider Outside LAB - BLOOD ORDERABLES Performing Organization Address City/State/ZIP Code Phon e Number [facility] NON-INTERFACED (ONBASE SCANS) documented in this encounter Visit Diagnoses Not on filedocumented in this encounter Care Teams Biodiesel Product Development Manager Relationship Specialty Start Date End Date Senthil Mckeon, PCP - General 12/03/18 Ronnie Myers PCP - General Family Medicine 09/11/21 [place] [id number] [place] [address] Zen Rousseau MD MD Family Practice 07/31/12 [facility] [address] [place] [address] Ta Trimble Assigned Heart and 05/27/20 2 MD [facility] Provider [address] [place] [address] Mali Dowd APRN AUTOMATION TECHNICIAN Assigned Heart and 10/08/21 [address] [place] [address] documented as of this encounter
--- OUTSIDE RECORDS SUMMARY | 2022-07-09 14:43 | XMS_ITS | Encounter Summary ---
:1940 Author Organization [place] Address [address] [facility] [place] [address] Care Team Providers Name Role Phone Zen Rousseau MD Unavailable Senthil Mckeon MD Primary Care Provider [phone] Ta Trimble MD Unavailable [phone] Reason for Visit Auth/Cert Specialty Diagnoses / Procedures Referred By Contact Refer red To Contact Gastroenterology Diagnoses History of colon polyps History of colon polyps [Z86.010] Endoscopy Procedures HC COLONOSCOPY W/WO BRUSH/WASH COLONOSCOPY [address] [place] [address] Phone: Fax: Referral ID Status Reason Start Date Expiration Date Visits Requ ested Visits Authorized [id number] 1 1 Encounter Details Date Type Department Care Team Description 04/06/2021 Surgery [facility] Jacque Kurtz COLONOSCO PY, FLEXIBLE, Endoscopy Mackenzie Yung MD WITH POLYPECTOMIES AND [address] [place] GASTROENTEROLOGY BIOPSIES USING [place], [place] [address]CE[address] [address] [address] [phone] [place], [place] [address] (Wo rk) Surgery Details Date/Time Status Location [...] the chance of preventing its spread. ?? [id number] [facility], [address] [place] [address], [place] [address]. All rights reserved. This information is not [...] be sent through Care Everywhere. 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 Case: [id number] ? 04/07/2021 RH Authorizing Provider: ??Jacque Parks MD ?? Collected: ? 04/06/2021 09:12 AM ? 1:04 PM LABORATOR Y [facility] [place] ?Received: ?04/06/2021 10:39 AM ? CDT ? [facility] [place] ? Pathologist: ? Ramsey Ruelas MD PhD [...] PM LABORATORY testing was CDT completed at [facility] Specimen Anatomical Collection Method Collection Time Receive d Time (Source) Location / / Volume Laterality Polyp ASCENDING COLON 04/06/2021 9:12 AM 2020 STRUCTURE / CDT 10:39 AM CDT Unknown Polyp COLON STRUCTURE / 04/06/2021 9:18 AM 09/2020 (morphologic Unknown CDT 10:39 AM CDT abnormality) Polyp TRANSVERSE COLON 04/06/2021 9:19 AM 04/06 (morphologic STRUCTURE / CDT 10:39 AM CDT abnormality) Unknown Polyp DESCENDING COLON 04/06/2021 9:25 AM 04/06 (morphologic STRUCTURE / CDT 10:39 AM CDT abnormality) Unknown Jacque NORMAN - KYLE EDEN Performing Organization Address City/State/ZIP Code [place] [address] Care [facility] [address] Lab (1st floor, no room number) COLONOSCOPY (04/06/2021 8:48 AM CDT) [facility] Method Time Signature COLONOSCOPY [facility] RADIOLOGY RESULTS Patient Name: Sreedhar YeboahTimothy Michele ? Procedure Date: 04/06/2021 8:48 AM ? Accou nt Number: [id number] Date of : 1940 ?Admit Type: Out [...] CF- H190L, [place] ?# 221, SN # [id number] was introduced through the anus ?and advanced [...] Procedure Code(s): ? --- Professional --- ? 51166, Colonoscopy, flexible; with removal of tumor (s), polyp(s), or ? other lesion(s) by snare technique CPT copyright 2019 [employer]. All rights reserved. The codes documented in this report are prelimin nav and upon braille coder review may be revised to meet current compliance requirements. Electronically signed by Concha Kurtz M.D. Jacque Kurtz MD 04/06/2021 9:43:49 AM I was physically present for the entire viewing portion of t he exam. Jacque Kurtz MD Number of Addenda: 0 Note Initiated On: 04/06/2021 8:48 AM MRN: ?[id number] Procedure Date: ? 04/06/2021 8:48:51 AM Scope [...] sedation, Administer over 1 Minutes, Starting on [facility] 04/06/21 at 0840, For 48 [...] mg (COMPLETED) 900 (Given - Provider: Paula Ho, YEN) 1 mg, Intravenous, Administer over 1 Min utes, ONCE WITHIN 24 HRS, On Ebony 9/2/21 at 0900, For 1 dose, Caution: when [...] Provider: Paula Ho RN - Comment: vorconcha) 25 mcg, Intravenous, EVERY 5 MIN PRN, [...] mL 09 (Given - Provider: Paula Ho RN)902 (Given - Provider: Paula Ho, YEN)0908 (Given - Provider: Paula Ho, RN) 3 mL, Intracatheter, EVERY 1 MIN PRN, li ne flush, other, to ensure patency or to lock dormant line, Starting on Sat04/06/21 at 0840, Pre-procedure Linked Groups Order Group [...] vomiting, Administer over 2-5 Minutes, Starting on Sat04/06/21 at 0840
This is Step 1 of [...] provider.
documented in this encounter Care Teams Bottom Turning Lathe Turner Relationship Specialty Start Date End Date Senthil Mckeon, PCP - General 12/03/18 Zen Rousseau MD MD Family Practice 07/31/[address] [address] Ta Trimble Assigned Heart and 05/27/20 2 MD [facility] Provider [address] [place] [address] documented as of this encounter
--- OUTSIDE RECORDS SUMMARY | 2022-07-09 14:43 | XMS_ITS | Encounter Summary ---
:1940 Author Organization [place] Address [facility] [place] [address] Care Team Providers Name Role Phone Zen Rousseau MD Unavailable Ronnie Myers Primary Care Provider Mali Dowd APRN, CNP Unavailable Reason for Visit Reason Onset Date Comments Symptoms 11/28/2021 Sweating Encounter Details Date Type Department Care Team Description 11/28/2021 Telephone [facility] Ta Trimble Symptoms (Sweating ) [place] [address] [place] [address] [phone] Social History Tobacco Use Types Packs/Day Years [...] Dulce Lainez - 11/28/2021 1:11 PM CDT [facility] Phone Message May a detailed [...] on filedocumented in this encounter Care Teams Practice Nurse Relationship Specialty Start Date End Date Ronnie Myers PCP - General Family Medicine 09/11/21 [facility] [address] [place] [address] Zen Rousseau MD MD Family Practice 07/31/12 [facility] [address] [facility] [place] [address] Mali Dowd APRN Assigned Heart and Vascular 10/08/21 [employer]ESS[employer] Provider [address] [place] [address] documented as of this encounter
--- OUTSIDE RECORDS SUMMARY | 2022-07-09 14:44 | XMS_ITS | Encounter Summary ---
:1940 Author Organization [place] Address [facility] [place] [address] Care Team Providers Name Role Phone Zen Rousseau MD Unavailable Senthil Mckeon MD Primary Care Provider [phone] Ta Trimble MD Unavailable [phone] Encounter Details Date Type Department Care Team Description 02/24/2021 Orders Only [facility] Jacque Kurtz Encounter for Endoscopy [place] MD Aga screening for other [address] [place] [facility]STRO[facility] viral diseases [place], [place] [address] [address] [address] [phone] [place], [place] [address] (Wo rk) Social History Tobacco Use Types [...] diseases documented in this encounter Care Teams Steel Pourer Relationship Specialty Start Date End Date Senthil Mckeon, PCP - General 12/03/18 Zen Rousseau MD MD Family Practice 07/31/[address] [address] Ta Trimble Assigned Heart and 05/27/20 2 MD [facility] Provider [address] [place] [id number] documented as of this encounter
--- OUTSIDE RECORDS SUMMARY | 2022-07-09 14:44 | XMS_ITS | Encounter Summary ---
:1940 Author Organization [place] Address [facility] [place] [address] Care Team Providers Name Role Phone Zen Rousseau MD Unavailable Senthil Mckeon MD Primary Care Provider [phone] Ta Trimble MD Unavailable [phone] Encounter Details Date Type Department Care [...] on filedocumented in this encounter Care Teams Preservationist Relationship Specialty Start Date End Date Senthil Mckeon, PCP - General 12/03/18 Zen Rousseau MD MD Family Practice 07/31/[address] [address] Ta Trimble Assigned Heart and 05/27/20 2 MD [facility] Provider [address] [place] [address] documented as of this encounter
--- OUTSIDE RECORDS SUMMARY | 2022-07-09 14:44 | XMS_ITS | Encounter Summary ---
:1940 Author Organization [place] Address [facility]0 [facility] [place] [address] Care Team Providers Name Role Phone Zen Rousseau MD Unavailable Senthil Mckeon MD Primary Care Provider [phone] Ta Trimble MD Unavailable [phone] Reason for Visit Reason Onset Date Comments Refill Request 10/07/2020 losartan Encounter Details Date Type Department Care Team Description 10/07/2020 Refill [facility] Mayra Peña RN Refill Request (losartan [facility] ) [address] [facility] [address] [place] [address] Social History Tobacco Use Types Packs/Day [...] 10/25/2020 Pharmacy sent to: que Peña RN TH INSURANCE AGENT documented in this encounter Plan of Treatment Not on filedocumented as of this encounter Visit Diagnoses Diagnosis Essential hypertension Unspecified essential hypertension documented in this encounter Care Teams Furnace Brazer Relationship Specialty Start Date End Date Senthil Mckeon, PCP - General 12/03/18 Zen Rousseau MD MD Family Practice 07/31/[address] [address] Ta Trimble Assigned Heart and 05/27/20 2 MD [facility] Provider [address] [place] [id number] documented as of this encounter
--- OUTSIDE RECORDS SUMMARY | 2022-07-09 14:44 | XMS_ITS | Encounter Summary ---
:1940 Author Organization [place] Address [facility] [place] [address] Care Team Providers Name Role Phone Zen Rousseau MD Unavailable Senthil Mckeon MD Primary Care Provider [phone] Encounter Details Date Type Department Care Team [...] on filedocumented in this encounter Care Teams Ancient Art Curator Relationship Specialty Start Date End Date Senthil Mckeon MD PCP - General 12/03/18 09/10/21 Zen Rousseau MD MD Family Practice 07/31/[address] [address] documented as of this encounter
--- OUTSIDE RECORDS SUMMARY | 2022-07-09 14:44 | XMS_ITS | Encounter Summary ---
:1940 Author Organization [place] Address [address] [place] [address]. [place] [address] Care Team Providers Name Role Phone Zen Rousseau MD Unavailable Senthil Mckeon MD Primary Care Provider [phone] Reason for Visit Reason Onset Date Comments Refill Request 02/23/2020 Metoprolol Encounter Details Date Type Department Care Team Description 02/23/[address] [facility] Heart Ta Trimble Refill Request Clinic Mackenzie Allan MD (Metoprolol) [address] [address] [place], [place] [phone] (Wo rk) [address] [phone] Social History Tobacco Use Types Packs/Day Years [...] hypertension documented in this encounter Care Teams Manager Programs Relationship Specialty Start Date End Date Senthil Mckeon MD PCP - General 12/03/18 09/10/21 Zen Rousseau MD MD Family Practice 07/31/[address] [place] [address] documented as of this encounter
--- OUTSIDE RECORDS SUMMARY | 2022-07-09 14:44 | XMS_ITS | Encounter Summary ---
:1940 Author Organization [place] Address [facility] [address] Care Team Providers Name Role Phone Zen Rousseau MD Unavailable Senthil Mckeon MD Primary Care Provider [phone] Ta Trimble MD Unavailable [phone] Encounter Details Date Type Department Care Team Description 10/25/2020 Orders Only [facility] Outside, [facility] [address] [place] [address] [address] [place] [address] Social History Tobacco Use [...] Signature Protein Total 6.3 6.0 - 8.3 [place] g/dL [facility] Albumin 3.7 3.3 - 5.0 [place] g/dL [facility] Bilirubin Total 1.3 0.0 - 1.5 [place] mg/dL [facility] Alkaline 55 40 - 150 [place] Phosphatase U/L [facility] AST 23 12 - 35 [place] U/L [facility] ALT 15 4 - 50 U/L [facility] Bilirubin Direct 0.2 0.0 - 0.5 [place] mg/dL HOSPITAL Specimen (Source) Anatomical Location Collection Method / Collectio n Time Received Time / Laterality Volume Blood specimen 09/13/2020 (specimen) Patient Reported LAB - BLOOD ORDERABLES Performing Organization Address City/[facility]/ZIP [facility] Phon e Number [facility] [address] [place] [address] (ABNORMAL) Hemoglobin A1c (09/13/2020) Analysis Performed At Patho logist Time Signature Hemoglobin A1C 6.8 (A) 0 - 6.9 % [facility] Specimen (Source) Anatomical Location Collection Method / Collectio n Time Received Time / Laterality Volume Blood specimen 09/13/2020 (specimen) Patient Reported LAB - BLOOD ORDERABLES Performing Organization Address City/[facility]/ZIP Code Phon e Number [address] [address] [phone] Lipid Profile (09/13/2020) Patholo gist Method Time Signature Cholesterol 184 90 - 200 [place] mg/dL [facility] Triglycerides 100 40 - 197 [place] mg/dL [facility] HDL Cholesterol 79 40 mg/dL [facility] LDL Cholesterol 85 100 mg/dL [facility] Non HDL [place] Cholesterol [facility] Specimen (Source) Anatomical Location Collection Method / Collectio n Time Received Time / Laterality Volume Blood specimen 09/13/2020 (specimen) Patient Reported LAB - BLOOD ORDERABLES Performing Organization Address City/[facility] Phon e Number [facility] [address] [place] [address] documented in this encounter Visit Diagnoses Not on filedocumented in this encounter Care Teams Plastic Straightening Roll Operator Relationship Specialty Start Date End Date Senthil Mckeon, PCP - General 12/03/18 Zen Rousseau MD MD Family Practice 07/31/[address] [address] Ta Trimble Assigned Heart and 05/27/20 2 MD [facility] Provider [address] [place] [address] documented as of this encounter
--- OUTSIDE RECORDS SUMMARY | 2022-07-09 14:44 | XMS_ITS | Encounter Summary ---
:1940 Author Organization [place] Address [facility] [place] [address] Care Team Providers Name Role Phone Zen Rousseau MD Unavailable Senthil Mckeon MD Primary Care Provider [phone] Reason for Referral CV Testing - Closed Specialty Diagnoses / Procedures Referred By Contact Refer red To Contact Diagnoses Hyperlipidemia LDL goal <70 Coronary artery disease involving [place] coronary artery of [place] heart without angina pectoris Nonrheumatic aortic valve stenosis Ankita Trimble, Procedures Echocardiogram Complete MD [address] [place], [place] [address] Referral ID Status Reason Start Date Expiration Date Visits Requ ested Visits Authorized [id number] Closed 05/06/2018 05/06/2019 1 1 R INSTALLATION CREW SUPERVISOR Reason for Visit (Routine) - Closed Specialty Diagnoses / Procedures Referred By Contact Refer red To Contact Cardiology Diagnoses per Dr Trimble, Hyperlipidemia LDL goal <70 Coronary artery disease involving [place] coronary artery of [place] heart without angina pectoris Rh Cv Cardiac Svc cc Nonrheumatic Pt will check in at 1:15at [facility] [address] sent conf of this appt out to pt. nkf 09/07 [address] [employer] Procedures ECHO COMPLETE [address] [place] [address] Phone: Fax: Referral ID Status Reason Start Date Expiration Date Visits Requ ested Visits Authorized [id number] Closed 09/16/2019 09/15/2020 1 1 Encounter Details Date Type Department Care Team Description 09/16[facility]2019 [facility] LDL goal <70; [facility] MD Jerrell Coronary artery disease involving [place] coronary artery of [place] heart without angina pectoris; [facility] [address] [place] [address] enosis [address] [facility] [address] [place] [address] Social History Tobacco Use [...] artery disease needed for chest pain involving [place] coronary artery of [place] heart without angina pectoris pantoprazole (PROTONIX) Take 40 mg by mouth 0 40 MG enteric coated every 48 hours tablet albuterol (2.5 MG/3ML) Take 1 vial by 0 06/19/2022 0.083% nebulizer nebulization every 6 solution hours as needed for shortness of breath / dyspnea or wheezing Coenzyme Q10 (COQ-10) Take by mouth daily [...] tabletIndications: Mixed hyperlipidemia, Coronary artery disease involving [place] coronary artery of [place] heart without angina pectoris VITAMIN D, Take 1,000 Units by 0 06/19 CHOLECALCIFEROL, PO mouth daily documented as of this encounter Plan of Treatment Not on filedocumented as of this encounter Procedures Procedure Name Priority Date/Time Associated Diagnosis Comme nts ECHO COMPLETE WITH Routine 09/16/2019 2:13 PM Hyperlipidemia L DL goal Results for this CONTRAST SOLAR INSTALLATION CREW SUPERVISOR <70 procedure are in Coronary artery disease the results involving [place] section. coronary artery of [place] heart without angina pectoris Nonrheumatic aortic valve stenosis documented in this encounter Results ECHO COMPLETE WITH CONTRAST (09/16/2019 2:13 PM SOLAR INSTALLATION CREW SUPERVISOR) Anatomical Region Laterality Modality Echocardiography Specimen (Source) Anatomical Collection Method Collection Time Re ceived Time Location / / Volume Laterality 09/16/2019 1:33 PM SOLAR INSTALLATION CREW SUPERVISOR Narrative 09/16/2019 2:38 PM SOLAR INSTALLATION CREW SUPERVISOR [id number]^JEROME^ANKITA^[facility] Echocardiography Laboratory [address] [place] [address] Name: DONALDO BAUTISTA : 1940 Study Date: 09/16/2019 01:33 PM Age: 79 yrs Gender: Male Patient Location: [facility] Reason For Study: Hyperlipidemia LDL goa l <70, Coronary artery disease involving n Ordering Physician: ANKITA TRIMBLE Referring Physician: Vamsi Mckeon MD Performed By: Mehnaz Chand RDCS BSA: 2.1 m2 Height: 66 in Weight: 218 lb HR: 56 BP: 158/89 mmHg __ Procedure Complete Echo Adult. Moose ([facility] #[id number] 1176) given intravenously. __ Interpretation Summary The visual [...] Procedure Note Darinel Kumar MD - 09/16/2019 [id number]^JEROME^ANKITA^[facility] Echocardiography Laboratory [address] [place] [address] Name: DONALDO BAUTISTA : 1940 Study Date: 09/16/2019 01:33 PM Age: 79 yrs Gender: Male Patient Location: [facility] Reason For Study: Hyperlipidemia LDL goa l <70, Coronary artery disease involving n Ordering Physician: ANKITA TRIMBLE Referring Physician: Vamsi Mckeon MD Performed By: Mehnaz Chand CHELE BSA: 2.1 m2 Height: 66 in Weight: 218 lb HR: 56 BP: 158/89 mmHg __ Procedure Complete Echo Adult. Optison ([facility] #[id number] 0582) given intravenously. __ Interpretation Summary The visual [...] and unspecified hyperlipidemia Coronary artery disease involving [place] coronary artery of [place] heart without angina pectoris Nonrheumatic aortic valve stenosis Aortic valve disorders documented in this encounter Administered Medications Inactive Administered Medications - up to 3 most recent administrations Medication Order MAR Action Action Date Dose Rate Site perflutren diluted 1mL to 2mL with Given 09/16/2019 2:15 PM SOLAR INSTALLATION CREW SUPERVISOR 3 mLs saline (OPTISON) diluted injection 3 mL 3 mL, Intravenous, ONCE, On Sat09/16/19 at 1415, For 1 dose, [facility] [id number] sodium chloride (PF) 0.9% PF flush 10 mL Given 09/16/2019 2:14 PM SOLAR INSTALLATION CREW SUPERVISOR 10 mLs 10 mL, Intravenous, ONCE, On Sat09/16/19 at 1415, For 1 dose documented in this encounter Care Teams Android Architect Relationship Specialty Start Date End Date Senthil Mckeon MD PCP - General 12/03/18 09/10/21 Zen Rousseau MD MD Family Practice 07/31/[address] [address] documented as of this encounter
--- OUTSIDE RECORDS SUMMARY | 2022-07-09 14:44 | XMS_ITS | Encounter Summary ---
:1940 Author Organization [place] Address [facility] [place] [address] Care Team Providers Name Role Phone Zen Rousseau MD Unavailable Senthil Mckeon MD Primary Care Provider [phone] Ta Trimble MD Unavailable [phone] Reason for Referral CV Testing (Routine) [...] GUIDE FOR [place]IC[place] [address] [employer] [facility] C INJECTION, PERFLUTREN LIPI D MICROSPHERES, PER ML HC STATISTIC IV PUSH SINGLE INITIAL SUBSTANCE [address] [facility] [address] [place], [place] [address] [place] [address] Phone: Fax: Referral ID Status Reason Start Date Expiration Date Visits Requ ested Visits Authorized [id number] Closed 10/20/2019 10/21/2020 1 1 Reason for Visit CV Testing (Routine) - Closed Specialty Diagnoses / Procedures Referred By Contact Refer red To Contact Cardiology Diagnoses Nonrheumatic aortic valve stenosis Ta Trimble, Cv Cardiac Svc Rscc Procedures Echocardiogram Complete HC TTE W/DOPPLER, COMPLETE HC ECHO COMPLETE W DOPPLER W CONTRAST HC ECHO COMPLETE W DOPPLER W/O CONTRAST HC IV PUSH SINGLE, INITIAL SUBSTANCE HC US GUIDE FOR [place]ICARDIOCENT[place] [address] [place] [facility] C INJECTION, PERFLUTREN LIPI D MICROSPHERES, PER ML HC STATISTIC IV PUSH SINGLE INITIAL SUBSTANCE [address] [facility] [address] [place], [place] [address] [place] [address] Phone: Fax: Referral ID Status Reason Start Date Expiration Date Visits Requ ested Visits Authorized [id number] Closed 10/20/2019 10/21/2020 1 1 Encounter Details Date Type Department Care Team Description 10/21/2020 Hospital Encounter [facility] Ta [facility]imble [facility]rell valve stenosis Heart [facility] [address] [facility] [id number] [place] [address] [address] [place] [phone] Social History Tobacco Use Types Packs/Day Years [...] artery disease needed for chest pain involving [place] coronary artery of [place] heart without angina pectoris pantoprazole (PROTONIX) Take [...] tabletIndications: Mixed hyperlipidemia, Coronary artery disease involving [place] coronary artery of [place] heart without angina pectoris VITAMIN D, Take [...] PM CDT Narrative 10/21/2020 4:54 PM CDT [id number]^JEROME^TA^[facility] Echocardiography Laboratory [address] [facility] [place] [address] Name: DONALDO BAUTISTA : 1940 Study Date: 10/21/2020 02:10 PM Age: 80 yrs Gender: Male Patient Location: [facility] Reason For Study: Nonrheumatic aortic va lve stenosis Ordering Physician: TA TRIMBLE Referring Physician: TA TRIMBLE GE ORGE Performed By: Darcy Workman BSA: 2.0 [...] note might be different from the original. [id number]^JEROME^TA^[facility] Echocardiography Laboratory [address] [place], [place] [address] Name: DONALDO BAUTISTA : 1940 Study Date: 10/21/2020 02:10 PM Age: 80 yrs Gender: Male Patient Location: [facility] Reason For Study: Nonrheumatic aortic va lve stenosis Ordering Physician: TA TRIMBLE Referring Physician: TA TRIMBLE GE ORGE Performed By: Darcy Workman BSA: 2.0 [...] disorders documented in this encounter Care Teams Tig Welder Relationship Specialty Start Date End Date Senthil Mckeon, PCP - General 12/03/18 Zen Rousseau MD MD Family Practice 07/31/[address] [address] Ta Trimble Assigned Heart and 05/27/20 2 MD Jerrell Vascular Provider [address] [place] [address] documented as of this encounter
--- OUTSIDE RECORDS SUMMARY | 2022-07-09 14:44 | XMS_ITS | Encounter Summary ---
:1940 Author Organization [place] Address [facility] [place] [address] Care Team Providers Name Role Phone Zen Rousseau MD Unavailable Senthil Mckeon MD Primary Care Provider [phone] Ta Trimble MD Unavailable [phone] Reason for Visit Auth/Cert Specialty Diagnoses / Procedures Referred By Contact Refer red To Contact Gastroenterology Diagnoses History of colon polyps History of colon polyps [Z86.010] Rh Endoscopy Procedures HC COLONOSCOPY W/WO BRUSH/WASH COLONOSCOPY [address] [place] [address] Phone: Fax: Referral ID Status Reason Start Date Expiration Date Visits Requ ested Visits Authorized [id number] 1 1 Encounter Details Date Type Department Care Team Description 04/06/2021 Hospital Encounter [facility] [facility] [place] MD Aga [address] IN GASTROENTEROLOGY [place], [place] [address] [address] [address] [phone] [place], [place] [phone] (Wo rk) Social History Tobacco Use Types [...] the chance of preventing its spread. ?? 3401-2956 [facility], [address] [place] [address], [place] [address]. All rights reserved. This information is not [...] be sent through Care Everywhere. Colitis, Understanding (Anguillan)documented in this encounter Medications at Time of [...] artery disease needed for chest pain involving [place] coronary artery of [place] heart without angina pectoris pantoprazole (PROTONIX) Take 40 mg by mouth 0 40 MG enteric coated every 48 hours tablet rosuvastatin (CRESTOR) Take 1 tablet (40 mg) 90 tablet 2 40 MG by mouth daily tabletIndications: Mixed hyperlipidemia, Coronary artery disease involving [place] coronary artery of [place] heart without angina pectoris albuterol (2.5 MG/3ML) [...] Directed for Coronary artery disease edema) involving [place] coronary artery of [place] heart without angina pectoris losartan (COZAAR) 50 [...] ct scan PLAN: coloboscoopy Jacque Kurtz MD [facility] Office: [phone] documented in this encounter Plan of Treatment [...] Component Value Ref Test Analysis Performed At [facility] Method Time Signature Case Report Surgical Pathology Report ? Case: [id number] ? 04/07/2021 Authorizing Provider: ??Jacque Parks MD ?? Collected: ? 04/06/2021 09:12 AM ? 1:04 PM LABORATOR Y [facility] ?Received: ?04/06/2021 10:39 AM ? CDT ? [...] malignancy. CDT Ramsey Mtz MD PhD on 1 at 1:04 PM B(2). Colon, random, biopsy: [...] dimension. Entirely submitted in one cassette. ([facility] CM) Microscopic Microscopic examination was performed. 04/07/2021 RH Description 1:04 PM LABORATORY CDT Performing The technical 04/07/2021 Labs component of this 1:04 PM LABORATORY testing was CDT completed at [facility] Laboratory Specimen Anatomical Collection Method Collection Time [...] CDT 10:39 AM CDT abnormality) Unknown Jacque Kurtz MD LAB - KYLE Performing Organization Address City/State/[place] [address] [facility] [address] [facility], no room number) COLONOSCOPY (04/06/2021 8:48 AM CDT) [facility] Method Time Signature COLONOSCOPY [facility] RADIOLOGY RESULTS Patient Name: Sreedhar Bautista ? Procedure Date: 04/06/2021 8:48 AM ? Accou nt Number: [id number] Date of : 1940 ?Admit Type: Out [...] CF- H190L, [place] ?# 221, SN # [id number] was introduced through the anus ?and advanced [...] Procedure Code(s): ? --- Professional --- ? 70828, Colonoscopy, flexible; with removal of tumor (s), polyp(s), or ? other lesion(s) by snare technique CPT copyright 2019 [employer]. All rights reserved. The codes documented in this report are prelimin nav and upon cpc coder review may be revised to meet current compliance requirements. Electronically signed by Lucía Kurtz M.D. Jacque Kurtz MD 04/06/2021 9:43:49 AM I was physically present for the entire viewing portion of t he exam. Jacque Kurtz MD Number of Addenda: 0 Note Initiated On: 04/06/2021 8:48 AM MRN: ?[id number] Procedure Date: ? 04/06/2021 8:48:51 AM Scope [...] Administer over 1 Minutes, Starting on T 04/06/21 at 0840, For 12 hours, Give [...] Administer over 1 Minutes, Starting on T 04/06/21 at 0840, For 48 hours, Give [...] mcg (COMPLETED) 900 (Given - Provider: Paula Ho, RN - Comment: vorb) 50 mcg, Intravenous, ONCE WITHIN 24 HRS, [...] 3 mL 0900 (Canceled Entry - Provider: Andrea Generic Provider - Comment: Automatically canceled at [...] sedation, Administer over 1 Minutes, Starting on Beony 04/06/21 at 0840, For 48 hours, Give [...] Paula Ho RN)0908 (Given - Provider: Paula Ho, YEN) 3 mL, Intracatheter, EVERY 1 MIN PRN, [...] provider.
documented in this encounter Care Teams Mems Engineer Relationship Specialty Start Date End Date Senthil Mckeon, PCP - General 12/03/18 Zen Rousseau MD MD Family Practice 07/31/[address] [address] Ta Trimble [facility] Heart and 05/27/20 2 MD Jerrell Vascular Provider [address] [place] [address] documented as of this encounter
--- OUTSIDE RECORDS SUMMARY | 2022-07-09 14:44 | XMS_ITS | Encounter Summary ---
:1940 Author Organization [place] Address [facility] [place] [address] Care Team Providers Name Role Phone Zen Rousseau MD Unavailable Senthil Mckeon MD Primary Care Provider [phone] Ta Trimble MD Unavailable [phone] Reason for Visit Reason Onset Date Comments Clinic Care Coordination - Follow-up 11/29/2020 amor pérez about PCP visit and BP medications Encounter Details Date Type Department Care Team Description 11/29/2020 Telephone [facility]anin Wyman C linic Care Coordination Clinic [place] RN - Follow-up (questions [phone] [employer] about P CP visit and BP [address] medications) [place] [address] Social History Tobacco Use Types [...] on filedocumented in this encounter Care Teams Cone Tender Relationship Specialty Start Date End Date Senthil Mckeon, PCP - General 12/03/18 Zen Rousseau MD MD Family Practice 07/31/[address] [address] Ta Trimble Assigned Heart and 05/27/20 2 MD Jerrell Vascular Provider [address] [place] [address] documented as of this encounter
--- OUTSIDE RECORDS SUMMARY | 2022-07-09 14:44 | XMS_ITS | Encounter Summary ---
:1940 Author Organization [place] Address [facility] [place] [address] Care Team Providers Name Role Phone Zen Rousseau MD Unavailable Senthil Mckeon MD Primary Care Provider [phone] Ta Trimble MD Unavailable [phone] Encounter Details Date Type Department Care [...] on filedocumented in this encounter Care Teams Humid System Operator Relationship Specialty Start Date End Date Senthil Mckeon, PCP - General 12/03/18 Zen Rousseau MD MD Family Practice 07/31/[address] [address] Ta Trimble Assigned Heart and 05/27/20 2 MD Jerrell Vascular Provider [address] [place] [address] documented as of this encounter
--- OUTSIDE RECORDS SUMMARY | 2022-07-09 14:44 | XMS_ITS | Encounter Summary ---
:1940 Author Organization [place] Address [facility] [place] [address] Care Team Providers Name Role Phone Zen Rousseau MD Unavailable Senthil Mckeon MD Primary Care Provider [phone] Encounter Details Date Type Department Care Team [...] on filedocumented in this encounter Care Teams Women'S Garment Fitter Relationship Specialty Start Date End Date Senthil Mckeon MD PCP - General 12/03/18 09/10/21 Zen Rousseau MD MD Family Practice 07/31/[address] [address] documented as of this encounter
--- OUTSIDE RECORDS SUMMARY | 2022-07-09 14:44 | XMS_ITS | Encounter Summary ---
:1940 Author Organization [place] Address [facility] [place] [address] Care Team Providers Name Role Phone Zen Rousseau MD Unavailable Senthil Mckeon MD Primary Care Provider [phone] Encounter Details Date Type Department Care Team Description 10/20/2019 Orders Only [facility] Outside, [facility] [id number] [place] [address] [address] [place] [address] Social History Tobacco Use [...] this encounter Results (ABNORMAL) Lipid Profile (06/01/2019) [facility] Time Signature Cholesterol 164 90 - 200 [place] mg/dL [facility] Triglycerides 110 40 - 197 [place] mg/dL [facility] HDL Cholesterol 71 (A) 40 mg/dL [facility] LDL Cholesterol 71 (A) 100 mg/dL [facility] Non HDL [place] Cholesterol [facility] ALT 16 (A) 3.3 - 5.0 [place] U/L [facility] AST 21 12 - 35 [place] U/[facility] Specimen (Source) Anatomical Location Collection Method / Collectio n Time Received Time / Laterality Volume Blood specimen 06/01/2019 (specimen) Patient Reported LAB - BLOOD ORDERABLES Performing Organization Address City/State/ZIP Code Phon e Number [facility] [address] [place] [address] [phone] documented in this encounter Visit Diagnoses Not on filedocumented in this encounter Care Teams Concrete Pipe Machine Operator Relationship Specialty Start Date End Date Senthil Mckeon MD PCP - General 12/03/18 09/10/21 Zen Rousseau MD MD Family Practice 07/31/[address] [address] documented as of this encounter
--- OUTSIDE RECORDS SUMMARY | 2022-07-09 14:44 | XMS_ITS | Encounter Summary ---
:1940 Author Organization [place] Address [facility] [place] [address] Care Team Providers Name Role Phone Zen Rousseau MD Unavailable Senthil Mckeon MD Primary Care Provider [phone] Ta Trimble MD Unavailable Ronnie Myers Primary Care Provider Mali Dowd APRN [employer] Unavailable Encounter Details Date Type Department Care Team Description 04/03/2021 External Order [facility] Outside, Provide r Results Molecular Diagnostic s [address] [place] [address] Social History Tobacco Use Types Packs/Day Years [...] Volume Laterality 04/03/2021 9:55 AM CDT Narrative [facility]FT - 05/03/2021 11:54 AM CDT Verified by Damion German on 2020. Patient Reported LABORATORY Performing Organization Address City/State/ZIP Code Phon e Number [facility] NON-INTERFACED (ONBASE SCANS) documented in this encounter Visit Diagnoses Not on filedocumented in this encounter Care Teams Staff Software Engineer Relationship Specialty Start Date End Date Senthil Mckeon PCP - General 12/03/18 Ronnie Myers PCP - General Family Medicine 09/11/21 [facility] [address] [place], [place] [id number] Zen Rousseau MD MD Family Practice 07/31/12 [facility] [address] [place] [phone] Ta Trimble Assigned Heart and 05/27/20 2 MD [place] Vascular Provider [address] [place], [place] [address] Mali Dowd APRN CNP Assigned Heart and 10/08/21 [address] Vascular Provider BEV ROBERSON [id number] documented as of this encounter
--- OUTSIDE RECORDS SUMMARY | 2022-07-09 14:44 | XMS_ITS | Encounter Summary ---
:1940 Author Organization [place] Address [facility] [place] [address] Care Team Providers Name Role Phone Zen Rousseau MD Unavailable Senthil Mckeon MD Primary Care Provider [phone] Ta Trimble MD Unavailable [phone] Reason for Visit Reason Onset Date Comments Refill Request 02/21/2021 crestor Encounter Details Date Type Department Care Team Description 02/21/2021 Refill [facility] Wendy Downs, Refill Request (crestor) [place] [address] [facility] [address] [place] [address] Social History Tobacco Use Types Packs/Day Years Used Date Smoking Tobacco: Former Smokeless Tobacco: Never Comments: quit about 30 years ago Alcohol Use Standard Drinks/Week Comments Yes 0 (1 standard drink = 0.6 oz pure alcoho l) rare Sex Assigned at Date Recorded Not on file documented as of this encounter Miscellaneous Notes Telephone Encounter - Wendy Downs RN - 02/21/2021 3:23 PM CDT Received refill request for: rosuvastatin Last OV was: 10/25/[address] Trimble Labs/EKG: last lipid 09/13/2020 F/U scheduled: orders in Epic for 10/2021 New script sent to: [facility] documented in this encounter Plan of Treatment Not on filedocumented as of this encounter Visit Diagnoses Diagnosis Mixed hyperlipidemia Coronary artery disease involving [place] coronary artery of [place] heart without angina pectoris documented in this encounter Care Teams Solution Consultant Relationship Specialty Start Date End Date Senthil Mckeon, PCP - General 12/03/18 Zen Rousseau MD MD Family Practice 07/31/[address] [address] Ta Trimble Assigned Heart and 05/27/20 2 MD [place] Vascular Provider [address] [place] [address] [phone] documented as of this encounter
--- OUTSIDE RECORDS SUMMARY | 2022-07-09 14:44 | XMS_ITS | Encounter Summary ---
:1940 Author Organization [place] Address [facility]0 [facility] [place] [address] Care Team Providers Name Role Phone Zen Rousseau MD Unavailable Senthil Mckeon MD Primary Care Provider [phone] Reason for Visit Reason Onset Date Comments COVID-19 SCREENING 10/19/2019 Encounter Details Date Type Department Care Team Description 10/19/2019 Telephone [facility] Za Davidson R N COVID-19 SCREENING Clinic [address] [place] [address] Social History Tobacco Use [...] with COVID-19: no ??? Refer to the [facility] Coronavirus webpage for COVID-19 areas: (if yes, what country?) Within the past 3 weeks, have you been exposed to the following: ??? Pertussis? no ??? Chicken pox? no ??? Measles? no Patient's appointment status: Appointment converted to phone visit documented in this encounter Plan of Treatment Not on filedocumented as of this encounter Visit Diagnoses Not on filedocumented in this encounter Care Teams Farmworker Bulbs Relationship Specialty Start Date End Date Senthil Mckeon MD PCP - General 12/03/18 09/10/21 Zen Rousseau MD MD Family Practice 07/31/[address] [address] documented as of this encounter
--- OUTSIDE RECORDS SUMMARY | 2022-07-09 14:44 | XMS_ITS | Encounter Summary ---
:1940 Author Organization [place] Address [facility] [place] [address] Care Team Providers Name Role Phone Zen Rousseau MD Unavailable Senthil Mckeon MD Primary Care Provider [phone] Ta Trimble MD Unavailable [phone] Reason for Referral (Routine) - Closed Specialty Diagnoses / Procedures Referred By Contact Refer red To Contact Diagnoses Essential hypertension Nonrheumatic aortic valve stenosis Hyperlipidemia LDL goal <70 Coronary artery disease involving wales coronary artery of wales heart without angina pectoris [facility] [address] [place] [address] Referral ID Status Reason Start Date Expiration Date Visits Requ ested Visits Authorized [id number] Closed 08/15/2020 08/15/2021 1 1 N TENDER Reason for Visit Reason Onset Date Comments Refill Request 08/15/2020 metoprolol tartrate Encounter Details Date Type Department Care Team Description [facility] Mackenzie BARLOW (metoprolol tartrate) [address] [place] [address] Social History Tobacco Use Types [...] OV. Letter sent New script sent to: [facility] N TENDER documented in this encounter Plan of Treatment Scheduled Referrals Name Type Priority Associated Diagnoses Order S chedule Follow-Up with Referral Routine Essential hypert ension Expected: 11/01/2020 Clinical Practice Consultant Nonrheumatic aortic (Approxi mate), valve stenosis Expires: 08/15/2021 Hyperlipidemia LDL goal <70 Coronary artery disease involving wales coronary artery of wales heart without angina pectoris documented as of this encounter Visit Diagnoses Diagnosis Nonrheumatic aortic valve stenosis - [facility] Aortic valve disorders Essential hypertension Unspecified essential hypertension Hyperlipidemia LDL goal <70 Other and unspecified hyperlipidemia Coronary artery disease involving wales coronary artery of wales heart without angina pectoris documented in this encounter Care Teams Data Analytics Architect Relationship Specialty Start Date End Date Senthil Mckeon, PCP - General 12/03/18 Zen Rousseau MD MD Family Practice 07/31/12 [facility] [address] [place] [address] Ta Trimble Assigned Heart and 05/27/20 2 MD Jerrell Vascular Provider [address] [place] [address] documented as of this encounter
--- OUTSIDE RECORDS SUMMARY | 2022-07-09 14:44 | XMS_ITS | Encounter Summary ---
:1940 Author Organization [place] Address [facility] [place] [address] Care Team Providers Name Role Phone Zen Rousseau MD Unavailable Senthil Mckeon MD Primary Care Provider [phone] Encounter Details Date Type Department Care Team Description 04/25/2020 Telephone [facility] Senthil Porter MD [place] [address] [phone] Social History Tobacco Use Types Packs/Day Years [...] 4:20 PM CDT Pharmacist named Leon from [facility] pharmacy called and requesting ear drops (new Rx) for a patient. Pharmacist states that patient called pharmacy and told that he has new Rx (ear drops). Unable to find any ear drops on patient's medication list. Informed pharmacy that. Venktaa Tavera RN documented in this encounter Plan of Treatment Not on filedocumented as of this encounter Visit Diagnoses Not on filedocumented in this encounter Care Teams Lockstitch Cup Setter Relationship Specialty Start Date End Date Senthil Mckeon MD PCP - General 12/03/18 09/10/21 Zen Rousseau MD MD Family Practice 07/31/[address] [phone] documented as of this encounter
--- OUTSIDE RECORDS SUMMARY | 2022-07-09 14:44 | XMS_ITS | Encounter Summary ---
:1940 Author Organization [place] Address [facility] [place] [address] Care Team Providers Name Role Phone Zen Rousseau MD Unavailable Senthil Mckeon MD Primary Care Provider [phone] Ta Trimble MD Unavailable [phone] Encounter Details Date Type Department Care [...] on filedocumented in this encounter Care Teams Armor Officer Relationship Specialty Start Date End Date Senthil Mckeon, PCP - General 12/03/18 Zen Rousseau MD MD Family Practice 07/31/[address] [address] Ta Trimble Assigned Heart and 05/27/20 2 MD [facility] Vascular Provider [address] [place] [address] documented as of this encounter
--- OUTSIDE RECORDS SUMMARY | 2022-07-09 14:44 | XMS_ITS | Encounter Summary ---
:1940 Author Organization [place] Address [facility] [place] [address] Care Team Providers Name Role Phone Zen Rousseau MD Unavailable Senthil Mckeon MD Primary Care Provider [phone] Reason for Referral CV Testing (Routine) - Closed Specialty Diagnoses / Procedures Referred By Contact Refer red To Contact Cardiology Diagnoses Nonrheumatic aortic valve stenosis Ankita Trimble, Rh Cv Cardiac Svc Rscc Procedures Echocardiogram Complete HC TTE W/DOPPLER, COMPLETE HC ECHO COMPLETE W DOPPLER W CONTRAST HC ECHO COMPLETE W DOPPLER W/O CONTRAST HC IV PUSH SINGLE, INITIAL SUBSTANCE HC US GUIDE [place] [id number] Adan C INJECTION, PERFLUTREN LIPI D MICROSPHERES, PER ML HC STATISTIC IV PUSH SINGLE INITIAL SUBSTANCE [address] [facility] [address] [place], [place] [address] [place] [address] Phone: Fax: Referral ID Status Reason Start Date Expiration Date Visits Requ ested Visits Authorized [id number] Closed 10/20/2019 10/21/2020 1 1 Reason for Visit Reason Onset Date Comments Coronary Artery Disease 10/20/2019 Encounter Details Date Type Department Care Team Description 10/20/2019 Virtual Visit [facility] Ankita Chambers Nonrh eumatic aortic valve stenosis (Primary Dx); Heart Clinic MD Rebeca Essential hypertension [address] [address] [place], [place] [phone] (Work) [phone] Social History Tobacco Use Types Packs/Day Years [...] are following, 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 Saran Trimble [facility] Phone call contact time Call Started [...] PM CDT Narrative 10/21/2020 4:54 PM CDT [id number]^JEROME^ANKITA^RE[facility] Echocardiography Laboratory [address] [place] [address] Name: DONALDO BAUTISTA : 1940 Study Date: 10/21/2020 02:10 PM Age: 80 yrs Gender: Male Patient Location: [facility] Reason For Study: Nonrheumatic aortic va lve stenosis Ordering Physician: ANKITA TRIMBLE Referring Physician: ANKITA TRIMBLE ORGE Performed By: Darcy Workman BSA: [...] note might be different from the original. [id number]^JEROME^ANKITA^[facility] Echocardiography Laboratory [address] [place] [address] Name: DONALDO BAUTISTA : 1940 Study Date: 10/21/2020 02:10 PM Age: 80 yrs Gender: Male Patient Location: [facility] Reason For Study: Nonrheumatic aortic va [...] [facility] Aortic valve disorders Essential hypertension Unspecified essential hypertension Nonrheumatic aortic valve stenosis Aortic valve disorders documented in this encounter Care Teams Network Operations Project Manager Relationship Specialty Start Date End Date Senthil Mckeon MD PCP - General 12/03/18 09/10/21 Zen Rousseau MD MD Family Practice 07/31/12 [facility] [address] [place] [phone] documented as of this encounter
--- OUTSIDE RECORDS SUMMARY | 2022-07-09 14:44 | XMS_ITS | Encounter Summary ---
:1940 Author Organization [place] Address [facility] [place] [address] Care Team Providers Name Role Phone Zen Rousseau MD Unavailable Senthil Mckeon MD Primary Care Provider [phone] Reason for Visit Reason Onset Date Comments Refill Request 09/28/2019 Losartan Encounter Details Date Type Department Care Team Description 09/28/2019 Refill [facility] Heart Mayra Peña RN Refill Request (Losartan) Clinic [address] [place] [address] Social History Tobacco Use Types Packs/Day Years Used Date Smoking Tobacco: Former Smokeless Tobacco: Never Comments: quit about 30 years ago Alcohol Use Standard Drinks/Week Comments Yes 0 (1 standard drink = 0.6 oz pure alcoho l) rare Sex Assigned at Date Recorded Not on file documented as of this encounter Miscellaneous Notes Telephone Encounter - Mayra Peña, YEN - 09/28/2019 1:16 PM CST Medication Refilled: Losartan Last office visit: 12/03/2018 with Mali Dowd Last Labs/EKG: NA Next office visit: 10/20/[address] Trimble Pharmacy sent to: Willy Peña RN [employer] documented in this encounter Plan of Treatment Not on filedocumented as of this encounter Visit Diagnoses Diagnosis Essential hypertension Unspecified essential hypertension documented in this encounter Care Teams Grants Administrator Relationship Specialty Start Date End Date Senthil Mckeon MD PCP - General 12/03/18 09/10/21 Zen Rousseau MD MD Family Practice 07/31/[address] [phone] documented as of this encounter
--- OUTSIDE RECORDS SUMMARY | 2022-07-09 14:44 | XMS_ITS | Encounter Summary ---
:1940 Author Organization [place] Address [facility]0 [facility] [place] [address] Care Team Providers Name Role Phone Zen Rousseau MD Unavailable Senthil Mckeon MD Primary Care Provider Encounter Details Date Type Department Care Team Description 10/20/2019 Orders Only [facility] Heart Clinic Outside, [facility] [address] [facility] [address] [place] [address] Social History Tobacco Use [...] encounter Results (ABNORMAL) CBC with platelets (10/01/2019) [facility] Method Time Signature WBC 7.1 4.5 - 11.0 [place] 10^9/L [facility] RBC Count 4.44 4.30 - [place] 5.90 [facility] 10^12/L Hemoglobin 13.0 (A) 13.5 - [place] 17.5 g/dL [facility] Hematocrit 41.5 37 - 53 % [facility] MCV 94 80 - 100 [facility] MCH 29 26 - 34 pg [facility] MCHC 31 (A) 32 - 36 [place] g/dL HOSPITAL RDW [facility] Platelet Count 148 140 - 440 [place] 10^9/L HOSPITAL Specimen (Source) Anatomical Location Collection Method / Collectio n Time Received Time / Laterality Volume Blood specimen 10/01/2019 (specimen) Patient Reported LAB - BLOOD ORDERABLES Performing Organization Address City/[facility]/ZIP Code Phon e Number [address] [address] (ABNORMAL) Basic metabolic panel (10/01/2019) Analysis Performed At Patho logist Time Signature Sodium 137 135 - 149 [place] mmol/L [facility] Potassium 4.0 3.6 - 5.1 [place] mmol/L [facility] Chloride 98 96 - 114 [place] mmol/L [facility] Carbon Dioxide 32 20 - 32 [place] mmol/L [facility] Anion Gap [facility] Glucose 126 (A) 60 - 115 [place] mg/dL [facility] Urea Nitrogen 18 7 - 30 [place] mg/dL [facility] Creatinine 0.9 0.5 - 1.5 [place] mg/dL [facility] Calcium 9.5 8.4 - 10.6 [place] mg/dL [facility] GFR Estimate [facility] GFR Estimate If [facility] Specimen (Source) Anatomical Location Collection Method / Collectio n Time Received Time / Laterality Volume Blood specimen 10/01/2019 (specimen) Patient Reported LAB - BLOOD ORDERABLES Performing Organization Address City/State/ZIP Code Phon e Number [facility] [address] [place] [address] documented in this encounter Visit Diagnoses Not on filedocumented in this encounter Care Teams Supervisor Central Supply Relationship Specialty Start Date End Date Senthil Mckeon MD PCP - General 12/03/18 09/10/21 Zen Rousseau MD MD Family Practice 07/31/[address] [place] [phone] documented as of this encounter
--- OUTSIDE RECORDS SUMMARY | 2022-07-09 14:44 | XMS_ITS | Encounter Summary ---
:1940 Author Organization [place] Address [facility] [place] [address] Care Team Providers Name Role Phone Zen Rousseau MD Unavailable Senthil Mckeon MD Primary Care Provider [phone] Ankita Trimble MD Unavailable [phone] Reason for Referral (Routine) - Closed Specialty Diagnoses / Procedures Referred By Contact Refer red To Contact Diagnoses Essential hypertension Nonrheumatic aortic valve stenosis Hyperlipidemia LDL goal <70 Coronary artery disease involving [place] coronary artery of [place] heart without angina pectoris Ankita Trimble MD [address] [place] [address] Referral ID Status Reason Start Date Expiration Date Visits Requ ested Visits Authorized [id number] Closed 10/25/2020 10/25/2021 1 1 V Testing (Routine) - Closed Specialty Diagnoses / Procedures Referred By Contact Refer red To Contact Diagnoses Essential hypertension Nonrheumatic aortic valve stenosis Hyperlipidemia LDL goal <70 Coronary artery disease involving [place] coronary artery of [place] heart without angina pectoris Ankita Trimble, Procedures Echocardiogram Complete ZZHC TTE W/DOPPLER, COMPLETE ZZHC ECHO COMPLETE W DOPPLER W CONTRAST ZZHC ECHO COMPLETE W DOPPLER W/O CONTRAST ZZHC IV PUSH SINGLE, INITIAL SUBSTANCE ZZHC US GUIDE FOR PERICARDIOCENTESIS MD ZZHC ECHO MYOCARD BX ZZC INJECTION, PERFLUTREN LIPID MICROSPHERES, PER ML ZZHC STATISTIC IV PUSH SINGLE INITIAL SUBSTANCE AL ECHO MYOCARD BX AL INJECTION, PERFLUTREN LIPID MICROSPHERES, PER ML AL TTE W/DOPPLER, COMPLETE [address] AL IV PUSH SINGLE, INITIAL S UBSTANCE AL TTE W/DOPPLER, COMPLETE AL TTE W/DOPPLER, COMPLETE HC US GUIDE FOR PERICARDIOCENTESIS HC ECHO MYOCARD BX HC IV PUSH SINGLE, INITIAL SUBSTANCE HC STATISTIC IV PUSH SINGLE [place] [address] HC ECHO COMPLETE W DOPPLER W CONTRAST HC ECHO COMPLETE W DOPPLER W/O CONTRAST Referral ID Status Reason Start Date Expiration Date Visits Requ ested Visits Authorized [id number] Closed 10/25/2020 10/25/2021 1 1 Reason for Visit Reason Comments Annual Visit Annual f/u (Routine) - Closed Specialty Diagnoses / Procedures Referred By Contact Refer red To Contact Diagnoses Essential hypertension Nonrheumatic aortic valve stenosis Hyperlipidemia LDL goal <70 Coronary artery disease involving [place] coronary artery of [place] heart without angina pectoris [facility] [address] [facility] [address] [place] [address] Referral ID Status Reason Start Date Expiration Date Visits Requ ested Visits Authorized [id number] Closed 08/15/2020 08/15/2021 1 1 Encounter Details Date Type Department Care Team Description 10/25/2020 Office Visit [facility] Ankita Chambers hypertension; Heart Clinic MD Jerrell Nonrheumatic aortic valve stenosis; [address] Hyperlipidemia LDL goal <70; [address] [place], [place] Katerine nary artery disease involving [place] coronary artery of [place] heart without angina pectoris; [address] [address] Mixed hyperlipidemia [place], [place] [phone] [address] (Work) [phone] Social History Tobacco Use Types Packs/Day Years [...] stenosis, coronary artery disease with an inferolateral MA in June 2010 treated with a INGRID [...] Chart documentation was completed, in part, with [employer] voice-recognition software. Even though reviewed, some grammatical, [...] year ASCVD risk: The ASCVD Risk score (Mikadoanjana CONTRERAS Jr., et al., 2013) failed to calculate for the following reasons: The 2013 ASCVD risk score is only valid for ages 40 to 79 Encounter Diagnoses Name Primary? Essential hypertension ??? Nonrheumatic aortic valve stenosis ? ? Hyperlipidemia LDL goal <70 ??? Coronary artery disease involving [place] coronary artery of [place] heart without angina pectoris ??? Mixed hyperlipidemia [...] on phone: None Gets together: None Attends mosque service: None Active member of club or [...] Self-Exams Not Asked ??? Parent/sibling w/ CABG, MA or angioplasty before 65F 55M? Not Asked [...] Trimble MD, FACC CC Ankita Trimble MD [address] [place] [address] documented in this encounter Plan of Treatment Scheduled Referrals Name Type Priority Associated Diagnoses Order S chedule Follow-Up with Cardiac Referral Routine Essential hypertension Expected: 10/25/2021 Advanced Practice Nonrheumatic aortic (Ap proximate), Provider valve stenosis Expires: 10/26/2021 Hyperlipidemia LDL goal <70 Coronary artery disease involving [place] coronary artery of [place] heart without angina pectoris documented as of this encounter Results ECHO COMPLETE (09/28/2021 7:45 AM MEDICAL SALES REPRESENTATIVE) P athologist Signature LVEF 55-60% CARDIOLOGY RESULTS Anatomical Region Laterality Modality Echocardiography Specimen (Source) Anatomical Collection Method Collection Time Re ceived Time Location / / Volume Laterality 09/28/2021 7:21 AM MEDICAL SALES REPRESENTATIVE Narrative 09/28/2021 10:53 AM [facility] [id number]^JEROME^ANKITA^[facility] Echocardiography Laboratory [address] [place] [address] Name: DONALDO BAUTISTA : 1940 Study Date: 09/28/2021 07:21 AM Age: 81 yrs Gender: Male Patient Location: [facility] Reason For Study: Essential hypertension , Nonrheumatic aortic valve stenosis, Hype Ordering Physician: ANKITA TRIMBLE [facility] Referring Physician: Ronnie Myers Performed By: Frank [...] note might be different from the original. [id number]^JEROME^ANKITA^[facility] Echocardiography Laboratory [address] [place] [address] Name: DONALDO BAUTISTA : 1940 Study Date: 09/28/2021 07:21 AM Age: 81 yrs Gender: Male Patient Location: [facility] Reason For Study: Essential hypertension , Nonrheumatic aortic valve stenosis, Hype Ordering Physician: ANKITA TRIMBLE [facility] Referring Physician: Ronnie Myers Performed By: Frank [...] and unspecified hyperlipidemia Coronary artery disease involving [place] coronary artery of [place] heart without angina pectoris Mixed hyperlipidemia Essential hypertension Unspecified essential hypertension Nonrheumatic aortic valve stenosis Aortic valve disorders Hyperlipidemia LDL goal <70 Other and unspecified hyperlipidemia Coronary artery disease involving [place] coronary artery of [place] heart without angina pectoris documented in this encounter Care Teams Charge Weigher Relationship Specialty Start Date End Date Senthil Mckeon, PCP - General 12/03/18 Zen Rousseau MD MD Family Practice 07/31/12 [facility] [address] [place] [phone] Anktia Trimble Assigned Heart and 05/27/20 3 2 MD [facility] Vascular Provider [address] [place] [address] documented as of this encounter
--- OUTSIDE RECORDS SUMMARY | 2022-07-09 14:45 | XMS_ITS | Encounter Summary ---
:1940 Author Organization [place] Address [facility] [place] [address] Care Team Providers Name Role Phone Zen Rousseau MD Unavailable Mckenzie Mayorga MD Primary Care Provider Reason for Referral - Closed Specialty Diagnoses / Procedures Referred By Contact Refer red To Contact Diagnoses Hyperlipidemia LDL goal <70 Coronary artery disease involving [place] coronary artery of [place] heart without angina pectoris Ta Trimble MD [address] [place] [address] Referral ID Status Reason Start Date Expiration Date Visits Requ ested Visits Authorized [id number] Closed 12/01/2017 12/01/2018 1 1 Reason for Visit Reason Comments Shortness of Breath Fatigue - Closed Specialty Diagnoses / Procedures Referred By Contact Refer red To Contact Diagnoses Hyperlipidemia LDL goal <70 CAD (coronary artery disease) [facility] [address] [facility] [address] [place] [address] Referral ID Status Reason Start Date Expiration Date Visits Requ ested Visits Authorized [id number] Closed 06/01/2017 06/01/2018 1 1 Encounter Details Date Type Department Care Team Description 06/04/2017 Office Visit [facility] Ta Trimble Hyperl ipidemia LDL goal <70; Heart Clinic MD Jerrell Coronary artery disease involving [place] coronary artery of [place] heart without angina pectoris [address] [address] [place], [place] [address] [address] [place], [place] [phone] [address] (Work) [phone] Social History Tobacco Use Types Packs/Day Years [...] perfusion and a normal ejection fraction. Mr. Bautsita was seen in clinic just over a [...] Placed This Encounter Procedures ??? Follow-Up with Three Knife Trimmer No orders of the defined types were placed in this encounter. There are no discontinued medications. Encounter Diagnoses Name Primary? ? ? Hyperlipidemia LDL goal <70 ??? Coronary artery disease involving [place] coronary artery of [place] heart without angina pectoris CURRENT MEDICATIONS: Current [...] Trimble MD, FACC CC Ta Trimble MD [address] [place] [address] documented in this encounter Plan of Treatment Scheduled Referrals Name Type Priority Associated Diagnoses Order S chedule Follow-Up with Referral Routine Hyperlipidemia LDL goal Ex pected: Three Knife Trimmer <70 12/01/2017 Coronary artery disease (Mick roximate), involving [place] coronary Ex joni: 06/04/2018 artery of [place] heart without angina pectoris documented as of this encounter Visit Diagnoses Diagnosis Hyperlipidemia LDL goal <70 Other and unspecified hyperlipidemia Coronary artery disease involving [place] coronary artery of [place] heart without angina pectoris documented in this encounter Care Teams Mold Maker Helper Relationship Specialty Start Date End Date Mckenzie Mayorga MD PCP - General 07/26/16 12/02/[address] [id number] Zen Rousseau MD MD Family Practice 07/31/[address] [phone] documented as of this encounter
--- OUTSIDE RECORDS SUMMARY | 2022-07-09 14:45 | XMS_ITS | Encounter Summary ---
:1940 Author Organization [place] Address [facility]0 [facility] [place] [address] Care Team Providers Name Role Phone Zen Rousseau MD Unavailable Mckenzie Mayorga MD Primary Care Provider Encounter Details Date Type Department Care Team Description 06/04/2017 Orders Only [facility] Heart Hype rlipidemia LDL goal <70; Clinic [place] CAD (coronary artery disease ) [address] [facility] [address] [place] [address] Social History Tobacco Use Types [...] encounter Results ALT (06/04/2017 8:12 AM CDT) athologist Signature ALT 20 0 - 70 U/L 06/04/2017 [facility] 8:[address] [facility] Specimen Anatomical Collection Method Collection Time Receive d Time (Source) Location / / Volume Laterality Blood specimen 06/04/2017 8:12 AM 017 8:16 (specimen) CDT AM CDT Ta Trimble MD LAB - BLOOD ORDERABLES Performing Organization Address City/[facility]/ZIP [facility] Phon e Number Saran [facility] [address] [place], [place] [address] [facility] [address] [place], [place] [address], [facility] [phone] Lipid Profile (06/04/2017 8:12 AM CDT) Analysis Performed At [facility] Time Signature Cholesterol 156 <200 mg/dL 06/04/2017 [place] 8:48 AM [facility] Triglycerides 135 <150 mg/dL 06/04/2017 [place] 8:48 AM [facility] HDL Cholesterol 62 >39 mg/dL 06/04/2017 [place] 8:48 AM [facility] LDL Cholesterol 67 <100 mg/dL 06/04/2017 [place] Calculated 8:48 AM [facility] Comment: Desirable: <100 mg/dl Non HDL Cholesterol 94 <130 mg/dL 06/04/2017 8:48 AM [facility] Specimen Anatomical Collection Method Collection Time Receive d Time (Source) Location / / Volume Laterality Blood specimen 06/04/2017 8:12 AM 017 8:16 (specimen) CDT AM CDT Ta Trimble MD LAB - BLOOD ORDERABLES Performing Organization Address City/[facility] Phon e Number Saran [facility] [address], [place] [address] [facility] [address] [place], [place] [address], [facility] [phone] documented in this encounter Visit Diagnoses Diagnosis Hyperlipidemia LDL goal <70 Other and unspecified hyperlipidemia CAD (coronary artery disease) Coronary atherosclerosis of unspecified type of vessel, [place] or graft documented in this encounter Care Teams International Marketing Coordinator Relationship Specialty Start Date End Date Mckenzie Mayorga MD PCP - General 07/26/16 12/02/18 [place] [id number] [place] [address] Zen Rousseau MD MD [facility] 07/31/[address] [phone] documented as of this encounter
--- OUTSIDE RECORDS SUMMARY | 2022-07-09 14:45 | XMS_ITS | Encounter Summary ---
:1940 Author Organization [place] Address [facility]0 [facility] [address] Care Team Providers Name Role Phone Zen Rousseau MD Unavailable Senthil Mckeon MD Primary Care Provider [phone] Encounter Details Date Type Department Care Team [...] on filedocumented in this encounter Care Teams Rubber Stamp Maker Relationship Specialty Start Date End Date Senthil Mckeon MD PCP - General 12/03/18 09/10/21 Zen Rousseau MD MD Family Practice 07/31/[address] [phone] documented as of this encounter
--- OUTSIDE RECORDS SUMMARY | 2022-07-09 14:45 | XMS_ITS | Encounter Summary ---
:1940 Author Organization [place] Address [facility]0 [facility] [place] [address] Care Team Providers Name Role Phone Zen Rousseau MD Unavailable Senthil Mckeon MD Primary Care Provider [phone] Encounter Details Date Type Department Care Team Description 12/03/2018 Orders Only [facility] System, Provider Not In Clinic [place] [id number] [place] [address] [address] [place] [address] Social History Tobacco Use [...] this encounter Results Basic metabolic panel (11/27/2018) P athologist Signature Sodium 137 138 - 146 [...] LAB External Lab CBC with platelets (11/27/2018) P athologist Signature WBC 11.4 4.5 - 11 [...] EXTERNAL LAB External Lab Hepatic panel (11/27/2018) P athologist Signature Protein Total 6.6 6.0 [...] on filedocumented in this encounter Care Teams Associate Merchandise Planner Relationship Specialty Start Date End Date Senthil Mckeon MD PCP - General 12/03/18 09/10/21 Zen Rousseau MD MD Family Practice 07/31/[address] [phone] documented as of this encounter
--- OUTSIDE RECORDS SUMMARY | 2022-07-09 14:45 | XMS_ITS | Encounter Summary ---
:1940 Author Organization [place] Address [facility] [place] [address] Care Team Providers Name Role Phone Zen Rousseau MD Unavailable Senthil Mckeon MD Primary Care Provider [phone] Encounter Details Date Type Department Care Team [...] on filedocumented in this encounter Care Teams Asset Protection Detective Relationship Specialty Start Date End Date Senthil Mckeon MD PCP - General 12/03/18 09/10/21 Zen Rousseau MD MD Family Practice 07/31/[address] [phone] documented as of this encounter
--- OUTSIDE RECORDS SUMMARY | 2022-07-09 14:45 | XMS_ITS | Encounter Summary ---
:1940 Author Organization [place] Address [address] [facility] [place] [place] [address] Care Team Providers Name Role Phone Zen Rousseau MD Unavailable Mckenzie Mayorga MD Primary Care Provider Reason for Visit Reason Onset Date Comments Call from D 05/15/2017 Encounter Details Date Type Department Care Team Description 05/15/2017 Telephone [facility] Clinic Belinda Davidson RN Call from [facility] [address] [address] [place] [address] Social History Tobacco Use [...] received a call from Lillian BARLOW from [facility]. Patient saw Dr. Mayorga today, and Dr. [...] causes. Lillian had no questions. TGaandres BARLOW [facility] documented in this encounter Plan of Treatment Not on filedocumented as of this encounter Visit Diagnoses Not on filedocumented in this encounter Care Teams Chicken Vaccinator Relationship Specialty Start Date End Date Mckenzie Mayorga MD PCP - General 07/26/16 12/02/18 [facility] [address] [place] [address] Zen Rousseau MD MD [facility] 07/31/[address] [phone] documented as of this encounter
--- OUTSIDE RECORDS SUMMARY | 2022-07-09 14:45 | XMS_ITS | Encounter Summary ---
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 aortic valve stenosis Ta Trimble MD [address] [place] [address] Referral ID Status Reason Start Date Expiration Date Visits Requ ested Visits Authorized [id number] Closed 06/01/2018 06/01/2019 1 1 Reason for Visit Reason Comments Coronary Artery Disease - Closed Specialty Diagnoses / Procedures Referred By Contact Refer red To Contact Diagnoses Hyperlipidemia LDL goal <70 Coronary artery disease involving [place] coronary artery of [place] heart without angina pectoris Ta Trimble MD [address] [place] [address] Referral ID Status Reason Start Date Expiration Date Visits Requ ested Visits Authorized [id number] Closed 12/01/2017 12/01/2018 1 1 Encounter Details Date Type Department Care Team Description 12/03/2017 Office Visit [facility] Ta Trimble Nonrhe umatic aortic valve stenosis (Primary Dx); Heart Clinic MD Jerrell Hyperlipidemia LDL goal <70; [address] Coronary artery disease involving [place] coronary artery of [place] heart without angina pectoris [address] [place], [place] [address] [address] [place], [place] [phone] [address] (Work) [phone] Social History Tobacco Use Types Packs/Day Years [...] encounter Progress Notes Ta Trimble MD - 12/03/2017 2:15 PM CDT HISTORY: [...] Placed This Encounter Procedures ??? Follow-Up with Pharmacy Intern ??? Echocardiogram No orders of the defined types were placed in this encounter. There are no discontinued medications. Encounter Diagnoses Name Primary? ? ? Hyperlipidemia LDL goal <70 ??? Coronary artery disease involving [place] coronary artery of [place] heart without angina pectoris ??? Nonrheumatic aortic [...] 06/28/2010 INR 0.91 06/27/2010 [facility] Ta Trimble MD [address] [place] [address] documented in this encounter Plan of Treatment Scheduled Referrals Name Type Priority Associated Diagnoses Order S chedule Follow-Up with Referral Routine Hyperlipidemia LDL goal Ex pected: Pharmacy Intern <70 06/01/2018 Coronary artery disease (Mick roximate), involving [place] coronary Ex joni: 12/03/2018 artery of [place] heart without angina p ectoris Nonrheumatic aortic valve stenosis documented as of this encounter Visit Diagnoses Diagnosis Nonrheumatic aortic valve stenosis - Coty shay Aortic valve disorders Hyperlipidemia LDL goal <70 Other and unspecified hyperlipidemia Coronary artery disease involving [place] coronary artery of [place] heart without angina pectoris documented in this encounter Care Teams Ground Intelligence Officer Relationship Specialty Start Date End Date Mckenzie Mayorga MD PCP - General 07/26/16 12/02/18 [facility] [address] [place] [address] Zen Rosuseau MD MD Family Practice 07/31/[address] [phone] documented as of this encounter
--- OUTSIDE RECORDS SUMMARY | 2022-07-09 14:45 | XMS_ITS | Encounter Summary ---
:1940 Author Organization [place] Address [facility]0 [facility] [place] [address] Care Team Providers Name Role Phone Zen Rousseau MD Unavailable Senthil Mckeon MD Primary Care Provider [phone] Reason for Visit Reason Onset Date Comments Refill Request 06/25/2019 losartan Encounter Details Date Type Department Care Team Description 06/25/2019 Refill [facility] Heart Ta Trimble Refill Request Clinic Mackenzie Allan MD (losartan) [address] [place] [address] [place], [place] [phone] (Wo rk) [address] [phone] Social History Tobacco Use Types Packs/Day Years [...] hypertension documented in this encounter Care Teams Freight Manager Relationship Specialty Start Date End Date Senthil Mckeon MD PCP - General 12/03/18 09/10/21 Zen Rousseau MD MD Family Practice 07/31/[address] [place] [address] documented as of this encounter
--- OUTSIDE RECORDS SUMMARY | 2022-07-09 14:45 | XMS_ITS | Encounter Summary ---
:1940 Author Organization [place] Address [facility] [place] [address] Care Team Providers Name Role Phone Zen Rousseau MD Unavailable Mckenzie Mayorga MD Primary Care Provider Reason for Referral - Closed Specialty Diagnoses / Procedures Referred By Contact Refer red To Contact Diagnoses Hyperlipidemia LDL goal <70 CAD (coronary artery disease) [facility] [address] [place] [address] Referral ID Status Reason Start Date Expiration Date Visits Requ ested Visits Authorized [id number] Closed 06/01/2017 06/01/2018 1 1 Reason for Visit Reason Onset Date Comments Results 04/24/2017 Echo and NT Pro BNP Encounter Details Date Type Department Care Team Description 04/24/2017 Telephone [facility] Heart Za Traylor R esults (Echo and NT Pro Clinic [place] RN BNP ) [address] [place] [address] Social History Tobacco Use Types [...] with Dr. Trimble. Sean BARLOW [facility] Telephone Encounter - Za Traylor RN - 04/30/2017 4:37 PM CDT Called patient, patient was not available. Results and recommendations were reviewed with Gail (patient's spouse). Gail requested that I review this with patient. I gave Gail my phone number, so patient can call me back tomorrow. Sean BARLOW [facility] Telephone Encounter - Ta Trimble MD - [...] Trimble to review. Sean BARLOW [facility] documented in this encounter Plan of Treatment Scheduled Referrals Name Type Priority Associated Diagnoses Order S chedule Follow-Up with Referral Routine Hyperlipidemia LDL goal Ex pected: Strategic Sourcing Specialist <70 06/01/2017 CAD (coronary artery (Approx imate), disease) Expires: 2017 documented as of this encounter Results ALT (06/04/2017 8:12 AM CDT) athologist Signature ALT 20 0 - 70 U/L 06/04/2017 [facility] 8:48 AM CDT HOSPITAL Specimen Anatomical Collection Method Collection Time Receive d Time (Source) Location / / Volume Laterality Blood specimen 06/04/2017 8:12 AM 017 8:16 (specimen) CDT AM CDT Ta Trimble MD LAB - BLOOD ORDERABLES Performing Organization Address City/[facility]/ZIP Code Phon e Number M [facility] [address] [place], [place] [address] [facility] [address] [place], [place] [address], [facility] [phone] Lipid Profile (06/04/2017 8:12 AM CDT) [facility] Signature Cholesterol 156 <200 mg/dL 06/04/2017 [place] 8:48 AM [facility] Triglycerides 135 <150 mg/dL 06/04/2017 [place] 8:48 AM [facility] HDL Cholesterol 62 >39 mg/dL 06/04/2017 [place] 8:48 AM [facility] LDL Cholesterol 67 <100 mg/dL 06/04/2017 [place] Calculated 8:48 AM [facility] Comment: Desirable: <100 mg/dl Non HDL Cholesterol 94 <130 mg/dL 06/04/2017 8:48 AM [facility] Specimen Anatomical Collection Method Collection Time Receive d Time (Source) Location / / Volume Laterality Blood specimen 06/04/2017 8:12 AM 017 8:16 (specimen) CDT AM CDT Ta Trimble MD LAB - BLOOD ORDERABLES Performing Organization Address City/[facility] Phon e Number M [facility] [address] [place], [place] [address] [facility] [address] [place], [place] [address], [facility] [phone] documented in this encounter Visit Diagnoses Diagnosis CAD (coronary artery disease) - Primary Coronary atherosclerosis of unspecified type of vessel, [place] or graft Hyperlipidemia LDL goal <70 Other and unspecified hyperlipidemia documented in this encounter Care Teams Crown Assembly Machine Set Up Mechanic Relationship Specialty Start Date End Date Mckenzie Mayorga MD PCP - General 07/26/16 12/02/18 [place] [id number] [place] [address] [address] [facility] 07/31/[address] [phone] documented as of this encounter
--- OUTSIDE RECORDS SUMMARY | 2022-07-09 14:45 | XMS_ITS | Encounter Summary ---
:1940 Author Organization [place] Address [address] [facility] [place] [address] Care Team Providers Name Role Phone Zen Rousseau MD Unavailable Mckenzie Mayorga MD Primary Care Provider Reason for Visit (Routine) - Closed Specialty Diagnoses / Procedures Referred By Contact Refer red To Contact Cardiology Diagnoses Per Dr. Trimble, Hyperlipidemia LDL goal <70 Coronary artery disease involving [place] coronary artery of [place] heart without angina pectoris Nonrheumatic aortic valve stenosis, [facility] 02-20-2018 Rh E cho cc Procedures ECH COMPLETE [address] [facility] [address] [place] [address] Phone: Fax: Referral ID Status Reason Start Date Expiration Date Visits Requ ested Visits Authorized [id number] Closed 04/29/2018 04/29/2019 1 1 Encounter Details Date Type Department Care Team Description 04/29/2018 Hospital Encounter [facility] Ta Chambers Hyperlipidemia LDL goal <70; [facility] MD Jerrell Coronary artery disease involving [place] coronary artery of [place] heart without angina pectoris; Heart Care [address] [place] [address] valve [place] enosis [address] [place] [address] Social History Tobacco Use [...] artery disease needed for chest pain involving [place] coronary artery of [place] heart without angina pectoris pantoprazole (PROTONIX) Take [...] daily Mixed hyperlipidemia, Coronary artery disease involving [place] coronary artery of [place] heart without angina pectoris VITAMIN D, Take [...] in Coronary artery disease the results involving [place] section. coronary artery of [place] heart without angina pectoris Nonrheumatic aortic valve stenosis documented in this encounter Results ECHO COMPLETE WITH OPTISON (04/29/2018 2:46 PM CDT) Anatomical Region Laterality Modality Echocardiography Specimen (Source) Anatomical Collection Method Collection Time Re ceived Time Location / / Volume Laterality 04/29/2018 1:33 PM CDT Narrative 04/29/2018 2:55 PM CDT [id number]^JEROME^TA^[facility] Echocardiography Laboratory [address] [place] [address] Name: DONALDO BAUTISTA : 1940 Study Date: 04/29/2018 01:33 PM Age: 78 yrs Gender: Male Patient [facility] [facility] Reason For Study: , Hyperlipidemia LDL g oal <70, Coronary artery disease involving Ordering Physician: TA TRIMBLE Referring Physician: TA TRIMBLE MJE Performed By: Ny Fields BSA: 2.1 m2 [...] note might be different from the original. [id number]^JEROME^TA^[facility] Echocardiography Laboratory [address] [place] [address] Name: DONALDO BAUTISTA : 1940 Study Date: 04/29/2018 01:33 PM Age: 78 yrs Gender: Male Patient Location: [facility] Reason For Study: , Hyperlipidemia LDL g oal <70, Coronary artery disease involving Ordering Physician: TA TRIMBLE Referring Physician: TA TRIMBLE GE ORGE Performed By: Ny Fields BSA: 2.1 [...] and unspecified hyperlipidemia Coronary artery disease involving [place] coronary artery of [place] heart without angina pectoris Nonrheumatic aortic valve [...] On Sat04/29/18 at 1500, For 1 dose, [facility] 0421-9596-67 sodium chloride (PF) 0.9% PF flush 10 mL Given 04/29/2018 2:47 PM CDT 10 mLs 10 mL, Intracatheter, ONCE, On Sat04/29/18 at 1500, For 1 dose documented in this encounter Care Teams Wire Turning Machine Operator Relationship Specialty Start Date End Date Mckenzie Mayorga MD PCP - General 07/26/16 12/02/18 [facility] [address] [place], [place] [id number] Zen Rousseau MD MD Family [facility] 07/31/[address] [phone] documented as of this encounter
--- OUTSIDE RECORDS SUMMARY | 2022-07-09 14:45 | XMS_ITS | Encounter Summary ---
:1940 Author Organization [place] Address [facility] [place] [address] Care Team Providers Name Role Phone Zen Rousseau MD Unavailable Senthil Mckeon MD Primary Care Provider [phone] Reason for Visit Auth/Cert Specialty Diagnoses / Procedures Referred By Contact Refer red To Contact Gastroenterology Diagnoses Screen for colon cancer Screen for colon cancer [Z12.11] Endoscopy Procedures COLONOSCOPY [address] [place] [address] Phone: Fax: Referral ID Status Reason Start Date Expiration Date Visits Requ ested Visits Authorized [id number] 1 1 Encounter Details Date Type Department Care Team Description 08/26/2019 Hospital Encounter [facility] Anna Black , Endoscopy Mackenzie MAXWELL [address] [place], [place] GASTROINTESTINAL [address] [phone] [place], [place] [address] (Wo rk) Social History Tobacco Use Types [...] Comments Blood Pressure 142/67 08/26/2019 9:00 AM TRAINING MANAGER Pulse 74 08/26/2019 9:00 AM TRAINING MANAGER Temperature - - Respiratory Rate 20 08/26/2019 9:00 AM TRAINING MANAGER Oxygen Saturation 96% 08/26/2019 9:00 AM TRAINING MANAGER Inhaled Oxygen Concentration - - Weight - - Height - - Body Mass Index - - documented in this encounter Discharge Instructions Discharge InstructionsZaira Henao RN - 08/26/2019 8:42 AM TRAINING MANAGER Images from the original note were not [...] the chance of preventing its spread. ?? [id number] Estuardo Rico, [address] [place] [address], [place] [address]. All rights reserved. This information is not intended as a substitute for professional medical care. Always follow your healthcare professional's instructions. NING MANAGER documented in this encounter Medications at Time [...] artery disease needed for chest pain involving [place] coronary artery of [place] heart without angina pectoris pantoprazole (PROTONIX) Take [...] tabletIndications: Mixed hyperlipidemia, Coronary artery disease involving [place] coronary artery of [place] heart without angina pectoris VITAMIN D, Take 1,000 Units by 0 06/19 CHOLECALCIFEROL, PO mouth daily documented as of this encounter H&P Notes [...] calculated from the following: Height as of 5/1/19: 1.676 m (5' 6). Weight as of [...] by: Anna Black MD August 26, 2019 NING MANAGER documented in this encounter Miscellaneous Notes Result Encounter Note - Anna Black MD - 08/26/2019 9:13 AM CST Pt informed of results. No redo. NING MANAGER documented in this encounter Plan of Treatment Not on filedocumented as of this encounter Procedures Procedure Name Priority Date/Time Associated Diagnosis Comme nts SURGICAL PATHOLOGY Routine 08/26/2019 8:20 AM Res ults for this EXAM TRAINING MANAGER procedure are i n the results section. COLONOSCOPY, 08/26/2019 7:55 AM History of colon FLEXIBLE, WITH TRAINING MANAGER polyps LESION REMOVAL USING SNARE Special Needs Ps sent by BR COLONOSCOPY, WITH POLYPECTOMY AND 08/26/2019 7:5 5 AM TRAINING MANAGER History of colon polyps BIOPSY Special Needs Ps sent by BR COLONOSCOPY Routine 08/26/2019 7:42 AM TRAINING MANAGER Resul ts for this procedure are in the results section . documented in this encounter Results Surgical pathology exam (08/26/2019 8:20 AM TRAINING MANAGER) Component Value Ref Test Analysis Performed At [facility] Range Method Time Signature Copath Report Patient Name: DONALDO BAUTISTA MR#: [id number] Specimen #: [id number] Collected: 08/26/2019 Received: 08/26/2019 [...] of this testing [facility], with the professional compo nent performed at the [facility], [address] [place] [address] ??[phone] ([phone]) CPT Codes: A: 02862-DG7 COLLECTION SITE: Client: [facility] Location: [facility] (R) Specimen (Source) Anatomical Collection Method Collection Time Re ceived Time Location / / Volume Laterality Polyp LARGE INTESTINE 08/26/2019 8:20 AM (morphologic PART / Unknown TRAINING MANAGER abnormality) Anna Black MD [facility] Performing Organization Address City/State/ZIP Code Phon e Number COPATH COLONOSCOPY (08/26/2019 7:42 AM TRAINING MANAGER) [facility] gist Method Time Signature COLONOSCOPY [facility] RAD IOLOGY RESULTS Patient Name: Donaldo Bautista ? Procedure Date: 08/26/2019 7:42 AM ? Accou nt Number: [id number] Date of : 1940 ?Admit Type: Out [...] # [id number], ?[place] # [id number], SN # [id number] was introduced through ?the anus and advanced [...] Procedure Code(s): ? --- Professional --- ? 66595, Colonoscopy, flexible; with removal of tumor (s), polyp(s), or ? other lesion(s) by snare technique Diagnosis Code(s): ? --- Professional --- ? D12.3, Benign neoplasm of transverse colo n (hepatic flexure or splenic ? flexure) CPT copyright 2018 [employer]. All rights reserved. The codes documented in this report are prelimin nav and upon optical fabrication technician review may be revised to meet current compliance requirements. Electronically signed by Anna Black MD Anna Black MD 08/26/2019 8:30:03 AM I was physically present for the entire viewing portion of t he exam. Anna Black MD Number of Addenda: 0 Note Initiated On: 08/26/2019 7:42 AM MRN: ?[id number] Procedure Date: ? 08/26/2019 7:42:29 AM Scope Withdrawal Time: 0 hours 8 minutes 26 seconds Total Procedure Duration: 0 hours 15 minutes 20 seconds Estimated Blood Loss: ? Scope In: 8:09:47 AM Scope Out: 8:25:07 AM Specimen (Source) Anatomical Collection Method Collection Time Re ceived Time Location / / Volume Laterality 08/26/2019 7:42 AM TRAINING MANAGER Senthil Mckeon MD PROCEDURES Performing Organization Address City/State/ZIP Code Phon e Number RADIOLOGY RESULTS documented in this encounter Visit Diagnoses Not on filedocumented in this encounter Administered Medications Inactive Administered Medications - up to 3 most recent administrations Medication Order MAR Action Action Date Dose Rate Site fentaNYL (PF) (SUBLIMAZE) Given 08/26/2019 8:12 AM TRAINING MANAGER 50 mcg injection PRN, Administer over 3-5 Minutes, Starting on Sat08/26/19 at 0807, Intra-procedure Given 08/26/2019 8:07 AM TRAINING MANAGER 50 mcg lidocaine (LMX4) kit Topical, EVERY [...] midazolam (VERSED) injection Given 08/26/2019 8:12 AM TRAINING MANAGER 1 mg Administer over 2 Minutes, PRN, Starting on Sat08/26/19 at 0807, Intra-procedure Given 08/26/2019 8:07 AM TRAINING MANAGER 1 mg ondansetron (ZOFRAN) injection 4 mg [...] Recently Administered Medications Times are shown in TRAINING MANAGER. Scheduled Medication Order 08/24/2019 08/25/2019 08/26/2019 0.9% [...] - Provider: Anna Black MD - Comment: ELBA) Administer over 2 Minutes, PRN, Starting Sat08/26/19 [...] Administer over 2-5 Minutes, Starting Sat08/26/19 at 0842
This is Step 1 of nausea and vomiting management. If nausea not resolved in 15 minutes, go to Step 2 prochlorperazine (COMPAZINE). Irritant. For ordered IV doses 0.1-4 mg, give IV Push undiluted over 2-5 minutes.
Post-procedure documented in this encounter Care Teams Overlocker Relationship Specialty Start Date End Date Senthil Mckeon MD PCP - General 12/03/18 09/10/21 Zen Rousseau MD MD Family Practice 07/31/[address] [address] documented as of this encounter
--- OUTSIDE RECORDS SUMMARY | 2022-07-09 14:45 | XMS_ITS | Encounter Summary ---
:1940 Author Organization [place] Address [facility] [place] [address] Care Team Providers Name Role Phone Zen Rousseau MD Unavailable Mckenzie Mayorga MD Primary Care Provider Reason for Visit Reason Onset Date Comments Breathing Problem 11/24/2018 Encounter Details Date Type Department Care Team Description 11/24/2018 Telephone [facility] Za Davidson R N Bre[facility] [address] [place] [address] Social History Tobacco Use [...] sooner. Spoke with Ryann (referral line) at [facility] [place]. Ryann will cancel patient's appt with Cardiology through [facility] that was scheduled for next Saturday. No appts available w/Dr. Trimble. Patient agreed to see Mali Dowd CARD FEEDER on 12-03-18 at 350 pm. I will requests records. Sean BARLOW Telephone Encounter - Za Davidson RN - 11/27/2018 12:58 PM CDT Called patient to get an update. Patient saw a provider today. Patient had a CXR and EKG and was told to see a Consumer Loan Processor through [facility]. Patient would like to f/u with our clinic. Called [facility]. Patient saw Sparkle Toney (UMER). Spoke with [...] on filedocumented in this encounter Care Teams Crime Prevention Police Officer Relationship Specialty Start Date End Date Mckenzie Mayorga MD PCP - General 07/26/16 12/02/18 [facility] [address] [place] [address] Zen Rousseau MD MD Family [facility] 07/31/[address] [phone] documented as of this encounter
--- OUTSIDE RECORDS SUMMARY | 2022-07-09 14:45 | XMS_ITS | Encounter Summary ---
:1940 Author Organization [place] Address [facility] [place] [address] Care Team Providers Name Role Phone Zen Rousseau MD Unavailable Mckenzie Mayorga MD Primary Care Provider Reason for Referral CV Testing - Closed Specialty Diagnoses / Procedures Referred By Contact Refer red To Contact Diagnoses Hyperlipidemia LDL goal <70 Coronary artery disease involving [place] coronary artery of [place] heart without angina pectoris Nonrheumatic aortic valve stenosis Ankita Trimble, Procedures Echocardiogram Complete [address] [place] [address] 6720 3 Referral ID Status Reason Start Date Expiration Date Visits Requ ested Visits Authorized [id number] Closed 05/06/2018 05/06/2019 1 1 Reason for Visit Reason Comments Coronary Artery Disease 6 month follow up - Closed Specialty Diagnoses / Procedures Referred By Contact Refer red To Contact Diagnoses Hyperlipidemia LDL goal <70 Coronary artery disease involving [place] coronary artery of [place] heart without angina pectoris Nonrheumatic aortic valve stenosis Ankita Trimble MD [address] [place] [address] 3790 9 Referral ID Status Reason Start Date Expiration Date Visits Requ ested Visits Authorized [id number] Closed 06/01/2018 06/01/2019 1 1 Encounter Details Date Type Department Care Team Description 05/06/2018 Office Visit [facility] Ankita Trimble Nonrhe umatic aortic valve stenosis (Primary Dx); Heart Clinic MD Rebeca Hyperlipidemia LDL goal <70; [address] Coronary artery disease involving [place] coronary artery of [place] heart without angina pectoris; [address] [place], [place] Esse ntial hypertension [address], [place] [phone] [address] (Work) [phone] Social History Tobacco Use Types Packs/Day Years [...] 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 Follow-Up with Coding Compliance Auditor ??? Echocardiogram No orders of the defined types were placed in this encounter. There are no discontinued medications. 10 year ASCVD risk: The ASCVD Risk score (Boston DC Jr, et al., 2013) failed to calculate for the following reasons: The 2013 ASCVD risk score is only valid for ages 40 to 79 The patient has a prior MCI or stroke diagnosis Encounter Diagnoses Name Primary? ? ? Hyperlipidemia LDL goal <70 ??? Coronary artery disease involving [place] coronary artery of [place] heart without angina pectoris ??? Nonrheumatic aortic [...] COLONOSCOPY ??? CORONARY ANGIOGRAPHY ADULT ORDER 06/2010 IGNRID to OM2, RCA mild/mod disease FAMILY HISTORY: [...] Trimble MD, FACC CC Ankita Trimble MD [address] [place] [address] documented in this encounter Plan of Treatment Not on filedocumented as of this encounter Results ECHO COMPLETE WITH CONTRAST (09/16/2019 2:13 PM HALL COORDINATOR) Anatomical Region Laterality Modality Echocardiography Specimen (Source) Anatomical Collection Method Collection Time Re ceived Time Location / / Volume Laterality 09/16/2019 1:33 PM HALL COORDINATOR Narrative 09/16/2019 2:38 PM HALL COORDINATOR [id number]^JEROME^ANKITA^REBECA [facility] [address] [place] [address] Name: DONALDO BAUTISTA : 1940 Study Date: 09/16/2019 01:33 PM Age: 79 yrs Gender: Male Patient Location: [facility] Reason For Study: Hyperlipidemia LDL goa l <70, Coronary artery disease involving n Ordering Physician: ANKITA TRIMBLE Referring Physician: Vamsi Mckeon MD Performed By: Mehnaz Chand RDCS BSA: 2.1 m2 Height: 66 in Weight: 218 lb HR: 56 BP: 158/89 mmHg __ Procedure Complete Echo Adult. Optison ([facility] #[id number]) given intravenously. __ Interpretation Summary The visual [...] Procedure Note Darinel Kumar MD - 09/16/2019 [id number] 750877^JEROME^ANKITA^[facility] Ech[facility] Laboratory [address] [place] [address] Name: DONALDO BAUTISTA : 1940 Study Date: 09/16/2019 01:33 PM Age: 79 yrs Gender: Male Patient Location: [facility] Reason For Study: Hyperlipidemia LDL goa l <70, Coronary artery disease involving n Ordering Physician: ANKITA TRIMBLE Referring Physician: Vamsi Mckeon MD Performed By: Mehnaz Chand CHELE BSA: 2.1 m2 Height: 66 in Weight: 218 lb HR: 56 BP: 158/89 mmHg __ Procedure Complete Echo Adult. Optison ([facility] #[id number]) given intravenously. __ Interpretation Summary The visual [...] and unspecified hyperlipidemia Coronary artery disease involving [place] coronary artery of [place] heart without angina pectoris Essential hypertension Unspecified essential hypertension Hyperlipidemia LDL goal <70 Other and unspecified hyperlipidemia Coronary artery disease involving [place] coronary artery of [place] heart without angina pectoris Nonrheumatic aortic valve stenosis Aortic valve disorders documented in this encounter Care Teams Almond Sorter Relationship Specialty Start Date End Date Mckenzie Mayorga MD PCP - General 07/26/16 12/02/18 [facility] [address] [place] [address] Zen Rousseau MD MD Family Practice 07/31/[address] [phone] documented as of this encounter
--- OUTSIDE RECORDS SUMMARY | 2022-07-09 14:45 | XMS_ITS | Encounter Summary ---
:1940 Author Organization [place] Address [facility] [place] [address] Care Team Providers Name Role Phone Zen Rousseau MD Unavailable Senthil Mckeon MD Primary Care Provider [phone] Reason for Visit Reason Onset Date Comments Refill Request 06/24/2019 Metoprolol Encounter Details Date Type Department Care Team Description 06/24/2019 Refill [facility] Heart Dowd, Mali E, AP RN Refill Request Clinic [facility] (Metoprolol) [address] [facility] [address] [place] [phone] Social History Tobacco Use Types Packs/Day Years [...] hypertension documented in this encounter Care Teams Retail Tire Sales Manager Relationship Specialty Start Date End Date Senthil Mckeon MD PCP - General 12/03/18 09/10/21 Zen Rousseau MD MD Family Practice 07/31/12 [facility] [address] [place] [phone] documented as of this encounter
--- OUTSIDE RECORDS SUMMARY | 2022-07-09 14:45 | XMS_ITS | Encounter Summary ---
:1940 Author Organization [place] Address [facility]0 [facility] [address] Care Team Providers Name Role Phone Zen Rousseau MD Unavailable Senthil Mckeon MD Primary Care Provider [phone] Reason for Visit Reason Onset Date Comments Results 12/04/2018 [facility] Clinic Care Coordination - Follow-up 12/04/2018 Encounter Details Date Type Department Care Team Description 12/04/2018 Telephone [facility] Za Davidson R esults ([facility]); Clinic Clinic Clinton RN Care Coordination - [address] [facility] Follow- up [address] [place] [address] Social History Tobacco Use Types [...] call from them. Theresa had no questions. Sean BARLOW Telephone Encounter - Mali Dowd APRN CNP [...] on Saturday with recommendations. Messaged Mali Dowd CHAR FILTER TANK TENDER to review. Sean BARLOW documented in this encounter Plan of Treatment Not on filedocumented as of this encounter Visit Diagnoses Not on filedocumented in this encounter Care Teams Dry Starch Supervisor Relationship Specialty Start Date End Date Senthil Mckeon MD PCP - General 12/03/18 09/10/21 Zen Rousseau MD MD Family Practice 07/31/[address] [phone] documented as of this encounter
--- OUTSIDE RECORDS SUMMARY | 2022-07-09 14:45 | XMS_ITS | Encounter Summary ---
:1940 Author Organization [place] Address [address] [facility] [place] [address] Care Team Providers Name Role Phone Zen Rousseau MD Unavailable Mckenzie Mayorga MD Primary Care Provider Reason for Visit Reason Onset Date Comments Refill Request 05/21/2017 Losartan BORIS 04/21 Encounter Details Date Type Department Care Team Description 05/21/2017 Refill [facility] Heart Abhijit Castañeda, Refill Request (Losartan Clinic [place] MAXWELL BORIS 04/21) [address] [place] [address] [place] [phone] (Wo rk) Social History Tobacco Use [...] hypertension documented in this encounter Care Teams Draw Fire Operator Relationship Specialty Start Date End Date Mckenzie Mayorga MD PCP - General 07/26/16 12/02/18 [facility]PLACED BY [facility] [address] [place] [address] Zen Rousseau MD MD Family Practice 07/31/[address] [phone] documented as of this encounter
--- OUTSIDE RECORDS SUMMARY | 2022-07-09 14:45 | XMS_ITS | Encounter Summary ---
:1940 Author Organization [place] Address [facility] [place] [address] Care Team Providers Name Role Phone Zen oRusseau MD Unavailable Senthil Mckeon MD Primary Care Provider [phone] Reason for Visit Reason Comments Follow Up Hyperlipidemia, HTN, CAD/Inf erior [place]/stenting in 2009, obesity, aortic valve disease Encounter Details Date Type Department Care Team Description 12/03/2018 Office Visit [facility] [place], Mal[place] E, Chris jaquez hypertension (Primary Dx); Heart Clinic HOSPICE MANAGER DATA ENTRY CLERK Coronary artery disease involving [place] coronary artery of [place] heart without angina pectoris [address] [place] [address] [place], [place] [phone] [address] (Work) [phone] Social History Tobacco Use Types Packs/Day Years [...] CDT documented in this encounter Progress Notes Mali Dowd APRN DATA ENTRY CLERK - 12/03/2018 4:21 PM CDT Service Date: 12/03/2018 HISTORY OF PRESENT ILLNESS: This 78-year-old male presents to [facility] today for a followup [...] DOWD APRN, LUKE [place]: gabriela Name: DONALDO MCCANN Account: [id number] : 1940 Service Date: 12/03/2018 Document: [id number] Mali Dowd APRN CNP - 12/03/2018 3:50 PM CDT HPI and Plan: See dictation #[id number] Orders Placed This Encounter Procedures ??? Basic metabolic panel Orders Placed This Encounter Medications ??? furosemide (LASIX) 20 MG tablet Sig: Take 20 mg by mouth as needed (Use as Directed for edema) There are no discontinued medications. Encounter Diagnoses Name Primary? Essential hypertension Yes ??? Coronary artery disease involving [place] coronary artery of [place] heart without angina pectoris CURRENT MEDICATIONS: Current [...] on phone: None Gets together: None Attends buddhism service: None Active member of club or [...] (12/03/2018 4:15 PM CDT) Analysis Performed At [facility] Time Signature Sodium 137 133 - 144 12/03/2018 [facility] mmol/L 4:48 PM CDT [facility] Potassium 4.1 3.4 - 5.3 12/03/2018 [facility] mmol/L 4:48 PM T [facility] Chloride 103 94 - 109 12/03/2018 [facility] mmol/L 4:48 PM CDT [facility] Carbon Dioxide 29 20 - 32 12/03/2018 [facility] mmol/L 4:56 PM CDT [facility] Anion Gap 5 3 - 14 12/03/2018 [facility] mmol/L 4:[address] [facility] Glucose 90 70 - 99 12/03/2018 [place] mg/dL 4:56 PM [facility] Urea Nitrogen 21 7 - 30 12/03/2018 [place] mg/dL 4:56 PM [facility] Creatinine 1.52 (H) 0.66 - 12/03/2018 [place] 1.25 mg/dL 4:56 PM [facility] GFR Estimate 42 (L) >60 12/03/2018 [place] mL/min/{1. 4:56 PM [facility] 73_m2} HOSPITAL Comment: Non GFR Calc Starting 07/22/2018, serum creatinine ba sed estimated GFR (eGFR) will be calculated using the Chronic Kidney Dise [facility] Epidemiology Collaboration (CKD-EPI) equation. GFR Estimate If 49 (L) >60 mL/min/{1.73_m2} 12/03/2018 4: 56 PM [facility] Comment: GFR Calc Starting 07/22/2018, serum creatinine ba sed estimated GFR (eGFR) will be calculated using the Chronic Kidney Dise [facility] Epidemiology Collaboration (CKD-EPI) equation. Calcium 9.0 8.5 - 10.1 mg/dL 12/03/2018 4:56 PM [facility] Specimen Anatomical Collection Method Collection Time Receive d Time (Source) Location / / Volume Laterality Blood specimen 12/03/2018 4:15 PM 019 4:20 (specimen) CDT PM CDT Mali Dowd APRN, CNP LAB - BLOOD ORDERABLES Performing Organization Address City/State/ZIP Code Phon e Number [place] [address] [place] [address] [facility] [address] [place] [address], [facility] [phone] [place] [address] [place] [address], [facility] documented in this encounter Visit Diagnoses Diagnosis Essential hypertension - Primary Unspecified essential hypertension Coronary artery disease involving [place] coronary artery of [place] heart without angina pectoris documented in this encounter Care Teams Bar Pilot Relationship Specialty Start Date End Date Senthil Mckeon MD PCP - General 12/03/18 09/10/21 Zen Rousseau MD MD Family Practice 07/31/[address] [phone] documented as of this encounter
--- OUTSIDE RECORDS SUMMARY | 2022-07-09 14:45 | XMS_ITS | Encounter Summary ---
:1940 Author Organization [place] Address [facility] [place] [address] Care Team Providers Name Role Phone Zen Rousseau MD Unavailable Senthil Mckeon MD Primary Care Provider [phone] Encounter Details Date Type Department Care Team Description 12/03/2018 [facility] [address] [place] [address] Social History Tobacco Use [...] (12/03/2018 4:15 PM CDT) [facility] Time Signature Sodium 137 133 - 144 12/03/2018 [place] mmol/L 4:48 PM [facility] Potassium 4.1 3.4 - 5.3 12/03/2018 [place] mmol/L 4:48 PM [facility] Chloride 103 94 - 109 12/03/2018 [place] mmol/L 4:48 PM [facility] Carbon Dioxide 29 20 - 32 12/03/2018 [place] mmol/L 4:56 PM [facility] Anion Gap 5 3 - 14 12/03/2018 [place] mmol/L 4:56 PM [facility] Glucose 90 70 - 99 12/03/2018 [place] mg/dL 4:56 PM [facility] Urea Nitrogen 21 7 - 30 12/03/2018 [place] mg/dL 4:56 PM [facility] Creatinine 1.52 (H) 0.66 - 12/03/2018 [place] 1.25 mg/dL 4:56 PM [facility] GFR Estimate 42 (L) >60 12/03/2018 [place] mL/min/{1. 4:56 PM [facility] 73_m2} HOSPITAL Comment: Non GFR Calc Starting 07/22/2018, serum creatinine ba sed estimated GFR (eGFR) will be calculated using the Chronic Kidney Dise [facility] Epidemiology Collaboration (CKD-EPI) equation. GFR Estimate If 49 (L) >60 mL/min/{1.73_m2} 12/03/2018 4: 56 PM [place] Black [facility] Comment: GFR Calc Starting 07/22/2018, serum creatinine ba sed estimated GFR (eGFR) will be calculated using the Chronic Kidney Dise [facility] Epidemiology Collaboration (CKD-EPI) equation. Calcium 9.0 8.5 - 10.1 mg/dL 12/03/2018 4:56 PM [facility] Specimen Anatomical Collection Method Collection Time Receive d Time (Source) Location / / Volume Laterality Blood specimen 12/03/2018 4:15 PM 019 4:20 (specimen) CDT PM CDT Mali Dowd APRN [employer] [facility] - BLOOD ORDERABLES Performing Organization Address City/State/ZIP Code Phon e Number [facility] [address] [address] [facility] [address] [place] [address], [facility] [phone] [facility] [address] [address], [facility] [phone] HOSPITAL documented in this encounter Visit Diagnoses Diagnosis Essential hypertension Unspecified essential hypertension documented in this encounter Care Teams Application Processor Relationship Specialty Start Date End Date Senthil Mckeon MD PCP - General 12/03/18 09/10/21 Zen Rousseau MD MD Family Practice 07/31/[address] [address] documented as of this encounter
--- OUTSIDE RECORDS SUMMARY | 2022-07-09 14:45 | XMS_ITS | Encounter Summary ---
:1940 Author Organization [place] Address [facility] [place] [address] Care Team Providers Name Role Phone Zen Rousseau MD Unavailable Mckenzie Mayorga MD Primary Care Provider Reason for Visit Reason Onset Date Comments Refill Request 05/13/2018 losartan Encounter Details Date Type Department Care Team Description 05/13/[address] [facility] Heart Atilio Ta Refill Request Clinic Sapphire Allan MD (losartan) [id number] [facility] [address] [place] [address] [place] [address] [phone] Social History Tobacco Use Types Packs/Day Years [...] hypertension documented in this encounter Care Teams Galley Boy Relationship Specialty Start Date End Date Mckenzie Mayorga MD PCP - General 07/26/16 12/02/18 [facility] [address] [place] [address] Zen Rousseau MD MD Family Practice 07/31/[address] [address] documented as of this encounter
--- OUTSIDE RECORDS SUMMARY | 2022-07-09 14:45 | XMS_ITS | Encounter Summary ---
:1940 Author Organization [place] Address [facility]0 [facility] [place] [address] Care Team Providers Name Role Phone Zen Rousseau MD Unavailable Senthil Mckeon MD Primary Care Provider [phone] Reason for Visit Auth/Cert Specialty Diagnoses / Procedures Referred By Contact Refer red To Contact Gastroenterology Diagnoses Screen for colon cancer Screen for colon cancer [Z12.11] Endoscopy Procedures COLONOSCOPY [address] [place] [address] Phone: Fax: Referral ID Status Reason Start Date Expiration Date Visits Requ ested Visits Authorized [id number] 1 1 Encounter Details Date Type Department Care Team Description 08/26/2019 Surgery [facility] Anna Black, COLO NOSCOPY, WITH Endoscopy Mackenzie MAXWELL POLYPECTOMY AND BIOPSY [address] [place] using jumbo forceps [place] GASTROINTESTINAL [address] [phone] [place], [place] [address] Surgery Details Date/Time Status Location OR Service [...] Comments Blood Pressure 167/95 08/26/2019 8:25 AM MERCHANDISING TEAM LEAD Pulse 89 08/26/2019 8:25 AM MERCHANDISING TEAM LEAD Temperature - - Respiratory Rate 32 08/26/2019 8:25 AM MERCHANDISING TEAM LEAD Oxygen Saturation 81% 08/26/2019 8:25 AM MERCHANDISING TEAM LEAD Inhaled Oxygen Concentration - - Weight - - Height - - Body Mass Index - - documented in this encounter Discharge Instructions Discharge Zaira Velasquez RN - 08/26/2019 8:42 AM MERCHANDISING TEAM LEAD Images from the original note were not [...] the chance of preventing its spread. ?? 2951-5112 [facility], [address] [place] [address], [place] [address]. All rights reserved. This information is not intended as a substitute for professional medical care. Always follow your healthcare professional's instructions. HANDISING TEAM LEAD documented in this encounter Medications at Time [...] tabletIndications: Mixed hyperlipidemia, Coronary artery disease involving confederated [...] by: Anna Black MD August 26, 2019 HANDISING TEAM LEAD documented in this encounter Miscellaneous Notes Result Encounter Note - Anna Black MD - 08/26/2019 9:13 AM CST Pt informed of results. No redo. HANDISING TEAM LEAD documented in this encounter Plan of Treatment Not on filedocumented as of this encounter Procedures Procedure Name Priority Date/Time Associated Diagnosis Comme nts SURGICAL PATHOLOGY Routine 08/26/2019 8:20 AM Res ults for this EXAM MERCHANDISING TEAM LEAD procedure are i n the results section. COLONOSCOPY, 08/26/2019 7:55 AM History of colon FLEXIBLE, WITH MERCHANDISING TEAM LEAD polyps LESION REMOVAL USING SNARE Special Needs Ps sent by BR COLONOSCOPY, WITH POLYPECTOMY AND 08/26/2019 7:5 5 AM MERCHANDISING TEAM LEAD History of colon polyps BIOPSY Special Needs Ps sent by BR COLONOSCOPY Routine 08/26/2019 7:42 AM MERCHANDISING TEAM LEAD Resul ts for this procedure are in the results section . documented in this encounter Results Surgical pathology exam (08/26/2019 8:20 AM MERCHANDISING TEAM LEAD) Component Value Ref Test Analysis Performed At [facility] Range Method Time Signature Copath Report Patient Name: DONALDO BAUTISTA MR#: [id number] Specimen #: [id number] Collected: 08/26/2019 Received: 08/26/2019 [...] of this testing was completed at the [facility], with the professional compo nent performed at the [facility], [address] [place] [address] ??[phone] ([phone]) CPT Codes: A: 26153-LP1 COLLECTION SITE: Client: [facility] Location: [facility] (R) Specimen (Source) Anatomical Collection Method Collection Time Re ceived Time Location / / Volume Laterality Polyp LARGE INTESTINE 08/26/2019 8:20 AM (morphologic PART / Unknown MERCHANDISING TEAM LEAD abnormality) Anna NORMAN - KYEL EDEN Performing Organization Address City/State/ZIP Code Phon e Number [place] COLONOSCOPY (08/26/2019 7:42 AM MERCHANDISING TEAM LEAD) [facility] Method Time Signature COLONOSCOPY [facility] RAD IOLOGY RESULTS Patient Name: Donaldo Bautista ? Procedure Date: 08/26/2019 7:42 AM ? Accou nt Number: [id number] Date of : 1940 ?Admit Type: Out patient Age: 79 ? Gender: Male Attending MD: Anna fry MD ?? Total Sedation Time: 15_minutes continuous bedside 1:1 Instrument Name: 217 - Pediatric Colonoscope Procedure: ?Colonoscopy Indications: ?High ri sk colon cancer surveillance: Personal ?history of colonic po lyps Providers: ?Anna Black MD (Doc [facility]) Referring MD: ? Senthil Mckeon (Refer [...] # [id number], ?[place] # 217, SN # [id number] was introduced through ?the anus and advanced [...] Procedure Code(s): ? --- Professional --- ? 20171, Colonoscopy, flexible; with removal of tumor (s), polyp(s), or ? other lesion(s) by snare technique Diagnosis Code(s): ? --- Professional --- ? D12.3, Benign neoplasm of transverse colo n (hepatic flexure or splenic ? flexure) CPT copyright 2018 [employer]. All rights reserved. The codes documented in this report are prelimin nav and upon music education director review may be revised to meet current compliance requirements. Electronically signed by Anna Black MD Anna Black MD 08/26/2019 8:30:03 AM I was physically present for the entire viewing portion of t he exam. Anna Black MD Number of Addenda: 0 Note Initiated On: 08/26/2019 7:42 AM MRN: ?[id number] Procedure Date: ? 08/26/2019 7:42:29 AM Scope Withdrawal Time: 0 hours 8 minutes 26 seconds Total Procedure Duration: 0 hours 15 minutes 20 seconds Estimated Blood Loss: ? Scope In: 8:09:47 AM Scope Out: 8:25:07 AM Specimen (Source) Anatomical Collection Method Collection Time Re ceived Time Location / / Volume Laterality 08/26/2019 7:42 AM MERCHANDISING TEAM LEAD Senthil Mckeon MD PROCEDURES Performing Organization Address City/State/ZIP Code Phon e Number RADIOLOGY RESULTS documented in this encounter Visit Diagnoses Diagnosis History of colon polyps Personal history of colonic polyps documented in this encounter Administered Medications Inactive Administered Medications - up to 3 most recent administrations Medication Order MAR Action Action Date Dose Rate Site fentaNYL (PF) (SUBLIMAZE) Given 08/26/2019 8:12 AM MERCHANDISING TEAM LEAD 50 mcg injection PRN, Administer over 3-5 Minutes, Starting on Sat08/26/19 at 0807, Intra-procedure Given 08/26/2019 8:07 AM MERCHANDISING TEAM LEAD 50 mcg lidocaine (LMX4) kit Topical, EVERY [...] midazolam (VERSED) injection Given 08/26/2019 8:12 AM MERCHANDISING TEAM LEAD 1 mg Administer over 2 Minutes, PRN, Starting on Sat08/26/19 at 0807, Intra-procedure Given 08/26/2019 8:07 AM MERCHANDISING TEAM LEAD 1 mg ondansetron (ZOFRAN) injection 4 mg [...] Recently Administered Medications Times are shown in MERCHANDISING TEAM LEAD. Scheduled Medication Order 08/24/2019 08/25/2019 08/26/2019 0.9% [...]
Post-procedure documented in this encounter Care Teams Heating And Ventilating Drafter Relationship Specialty Start Date End Date Senthil Mckeon MD PCP - General 12/03/18 09/10/21 Zen Rousseau MD MD Family Practice 07/31/[address] [address] documented as of this encounter
--- OUTSIDE RECORDS SUMMARY | 2022-07-09 14:46 | XMS_ITS | Encounter Summary ---
:1940 Author Organization [place] Address [facility] [place] [address] Care Team Providers Name Role Phone Zen Rousseau MD Unavailable Mckenzie Mayorga MD Primary Care Provider Reason for Visit (Routine) - Closed Specialty Diagnoses / Procedures Referred By Contact Refer red To Contact Radiology / Diagnoses written order, sb pt Rh Ultrasound [facility] Radiology. Procedures US RUDY DOPPLER NO EXERCISE [address] [place] [address] Phone: Fax: Referral ID Status Reason Start Date Expiration Date Visits Requ ested Visits Authorized [id number] Closed 08/22/2016 08/22/2017 1 1 Encounter Details Date Type Department Care Team Description 08/24/2016 Hospital Encounter [facility] Shawn Kasper, Claudication (H) Jose Ramon Trotter MD Care Center Imaging [facility] [place] [address] [facility] NEUROLOGY [address] [place], [place] [address] [address] [place], [place] [phone] [address] Social History Tobacco Use Types Packs/Day [...] artery disease needed for chest pain involving wainwright coronary artery of wainwright heart without angina pectoris pantoprazole (PROTONIX) Take 40 mg by mouth 0 40 MG enteric coated every 48 hours tablet albuterol (2.5 MG/3ML) Take 1 vial by 0 06/19/2022 0.083% nebulizer nebulization every 6 solution hours as needed for shortness of breath / dyspnea or wheezing losartan (COZAAR) 50 MG Take 1 tablet [...] daily Mixed hyperlipidemia, Coronary artery disease involving wainwright coronary artery of wainwright heart without angina pectoris documented as of this encounter Plan of Treatment Not on filedocumented as of this encounter Procedures Procedure Name Priority Date/Time Associated Diagnosis Comme nts US RUDY DOPPLER NO Routine 08/24/2016 2:08 PM Claudication (H) Results for this EXERCISE, 1-2 TEMPERATURE REGULATOR procedure are in LEVELS,?? BILAT the results section. documented in this encounter Results US RUDY Doppler No Exercise (08/24/2016 2:08 PM TEMPERATURE REGULATOR) Anatomical Region Laterality Modality Extremity Ultrasound Specimen (Source) Anatomical Location Collection Method / Collectio n Time Received Time / Laterality Volume Narrative 08/24/2016 2:17 PM TEMPERATURE REGULATOR ULTRASOUND RUDY DOPPLER NO EXERCISE ??08/24/2016 2:08 [...] unspecified documented in this encounter Care Teams Dry Primer Powder Blender Relationship Specialty Start Date End Date Mckenzie Mayorga MD PCP - General 07/26/16 12/02/[address] [address] Zen Rousseau MD MD [facility] 07/31/[address] [phone] documented as of this encounter
--- OUTSIDE RECORDS SUMMARY | 2022-07-09 14:46 | XMS_ITS | Encounter Summary ---
:1940 Author Organization [place] Address [facility] [place] [address] Care Team Providers Name Role Phone Elizabeth Rousseau MD Unavailable Mckenzie Mayorga MD Primary Care Provider Reason for Visit Reason Comments Shortness of Breath Encounter Details Date Type Department Care Team Description 11/10/2016 - Emergency [facility] Nasima Lemus MD [facility] [address] [place] [address] [place] [id number] CAD (coronary artery disease) (Primary D x); 11/11/2016 Fide Denny MD [facility] [address] [place], [place] [id number] Shortness of breath Dept Shay Carrasco MD [address] [place], [place] [id number] [address] [place] [address] Social History Tobacco Use Types [...] Coker PA-C - 11/11/2016 10:07 AM CDT [facility]ation Unit Discharge Summary Donaldo [...] labs or test are needed. Recommend NM Pamela as an outpatient next week. Follow up with PCP for results Pt instructed to follow up with PCP in 7 days and with Plating Stripper if indicated. Follow-up Labs None Discharge Disposition: Discharged to home Discharge Medications: Current Discharge Medication List CONTINUE these medications which have NOT CHANGED Details VITAMIN D, CHOLECALCIFEROL, PO Take 5,000 Units by mouth daily rosuvastatin (CRESTOR) 20 MG tablet Take 1 tablet (20 mg) by mouth daily Qty: 90 tablet, Refills: 3 Associated Diagnoses: Mixed hyperlipidemia; Coronary artery disease involving inupiat coronary artery of inupiat heart without angina pectoris losartan (COZAAR) 50 [...] 3 Associated Diagnoses: Coronary artery disease involving inupiat coronary artery of inupiat heart without angina pectoris Cyanocobalamin (VITAMIN B [...] artery disease needed for chest pain involving inupiat coronary artery of inupiat heart without angina pectoris pantoprazole (PROTONIX) Take [...] daily Mixed hyperlipidemia, Coronary artery disease involving inupiat coronary artery of inupiat heart without angina pectoris VITAMIN D, Take 1,000 Units by 0 06/19 CHOLECALCIFEROL, PO mouth daily documented as of this encounter Progress Notes [...] discharge noted No 9.Interpretation of rhythm per optical fabrication technician: SR/B VSS. Pt resting in bed, [...] discharge noted No 9.Interpretation of rhythm per optical fabrication technician: SR VSS. Pt resting in bed, denies pain, SOB/RAHMAN. Ambulating ad yovany. Voiding, not saving. Alert and oriented, able to make needs known. Continue to monitor. documented in this encounter H&P Notes Karen Khan PA-C - 11/10/2016 7:18 PM CDT [facility] Out[facility] Observation Unit History and Physical Exam Donaldo Bautista Date of : 1940 Age: [age] year old Date of Admission: 11/10/2016 Primary care provider: Mckenzie Mayorga Assessment: Donaldo Bautista is a 76 year old male with a PMH significant for CAD (s/p inferolateral wall ND 06/2010, INGRID placed in 2nd obtuse marginal branch artery w/ ixix-rd-yxonqmky disease in other vessels, EF 50-55%), HLD, [...] any anginal symptoms at that time; per [facility] note they were considering repeating his nuclear stress test in 2016. Discussed with patient that we do not offer lexiscan stress tests over the weekend and that we could just check anothertroponin to rule out ND then call his cardiology clinic on Saturday to see what Dr. Castañeda would like ordered (stress test vs angiogram). The patient is uncomfortable with discharging tonight because the ER physician already told him that he should be placed on observation overnight. Discussed that wehave ruled out ND with troponins and that we would only [...] testing vs angiogram. 2. CAD hx: Continue EMBOSSOGRAPH OPERATOR rosuvastatin 20 mg daily, losartan 50 mg daily, and metoprolol 25 mg BID w/ parameters. 3. HTN: Continue ARB and BB as listed above. 4. HLD: Continue statin as listed above. 5. GERD: Continue protonix 40 mg Q48 hrs. 6. Asthma: Scheduled duonebs while awake. Plan: 1. [place] to Observation 2. Continue telemetry 3. Serial [...] PMH significant for CAD (s/p inferolateral wall ND 06/2010, INGRID placed in 2nd obtuse marginal branch artery w/ jjbh-xe-nillxhho disease in other vessels, EF 50-55%), HLD, morbid obesity, HTN, GERD, who presents after 2 episodes of diaphoresis and sob today. The patient does have a known history of CAD, had an ND in 2009 w/ 1 INGRID placement. He [...] includes 6 siblings that have suffered an ND or CAD. Work up in ED reveals: [...] 11 AM today. Cardiac risk factors: previous ND, abnormal lipids, hypertension, obesity and sedentary life [...] oriented x3. Airway, breathing and circulation intact. Fide Marin MD - 11/10/2016 12:56 PM CDT History Chief Complaint: Shortness of Breath Diaphoresis HPI Donaldo Bautista is a 76 year old male, with a history of HTN, HLD, CAD, and ND, currently on baby aspirin for previous history of ND, S/P stent placement, who presents with shortness [...] history of a previous stent following an ND, but states during that time he had [...] Medical History: CAD Colon polyps HTN HLD ND Stented coronary artery Asthma Past Surgical History: [...] @ 1311 Indication: SOB Rate 47 bpm. DE interval 168 ms. QRS duration 88 ms. [...] exam of the patient as documented above. 1733: I spoke to Karen Khan PA-C, of the hospitalist service about admitting the patient. We discussed our options including discharge with close follow up for Lexiscan versus admission. She will talk to the patient. 1830: Patient has agreed to admission. He will [...] pt on metoprolol tartarate 25mg po bid. EMBOSSOGRAPH OPERATOR med list in [facility] is correct. Plan of Care - Divine [...] discharge noted No 9.Interpretation of rhythm per optical fabrication technician: SR/B Denies sweating, chest pain, and [...] discharge noted No 9.Interpretation of rhythm per optical fabrication technician: sr Patient denies shortness of breath [...] assess. Pharmacy-Admission Medication History - Anne Wright RPH - 11/10/2016 6:57 PM CDT Admission medication history interview status for this patient is complete. See [facility] admission navigator for allergy information, prior to admission medications and immunization status. Medication history interview source(s):Patient Medication history resources (including written lists, pill bottles, clinic record):EPIC list/patient list Primary pharmacy:[facility] ([facility]) Changes made to EMBOSSOGRAPH OPERATOR medication list: Added: Vitamin D Changed: B12 [...] undergoing stress test for dyspnea. In 2 he underwent stents to the OM 2 [...] logist Time Signature Cholesterol 139 <200 mg/dL [facility] Triglycerides 109 <150 mg/dL [facility] HDL Cholesterol 56 >39 mg/dL [facility] LDL Cholesterol 61 <100 mg/dL [facility] Comment: Desirable: <100 mg/dl Non HDL Cholesterol 83 <130 mg/dL [facility] Specimen Anatomical Collection Method Collection Time Receive d Time (Source) Location / / Volume Laterality Blood specimen 11/11/2016 6:30 AM 017 6:42 (specimen) CDT AM CDT Karen Khan PA-C LAB - BLOOD ORDERABLES Performing Organization Address [facility] Phon e Number M [facility] [address] [place], [place] [address] [facility] [address] [place], [place] [address], [facility] [phone] Troponin I (11/10/2016 6:32 PM CDT) [facility] Method Time Signature Troponin I ES <0.[address] [place] [address] The 99th percentile for uppe r reference range is 0.045 ug/L. ??Troponin values in 0.045 [place] the range of 0.045 - 0.120 ug/L may be associated wit h risks of adverse ug/L HOSPITAL clinical events. Specimen Anatomical Collection Method Collection Time Receive d Time (Source) Location / / Volume Laterality Blood specimen 11/10/2016 6:32 PM 6:43 (specimen) CDT PM CDT Karen Khan BISMARK-C LAB - BLOOD ORDERABLES Performing Organization Address [facility] Phon e Number [facility] [address] [place], [place] [address] [facility] [address] [place], [place] [address], [facility] [phone], IV contrast only - PE [...] Signature N-Terminal Pro 237 0 - 1,800 [place] BNP Inpatient pg/mL [facility] Comment: Reference range shown and results [...] LAB - BLOOD ORDERABLES Performing Organization Address City/[facility] e Number [place] [address] [place] [address] [facility] [address] [phone] Troponin I (now) (11/10/2016 1:14 PM CDT) Patholo gist Method Time Signature Troponin I ES <0.015 0.000 - [place] The 99th percentile for uppe r reference range is 0.045 ug/L. ??Troponin values in 0.045 [facility] the range of 0.045 - 0.120 ug/L may be associated wit h risks of adverse ug/L HOSPITAL clinical events. Specimen Anatomical Collection Method Collection Time Receive d Time (Source) Location / / Volume Laterality Blood specimen 11/10/2016 1:14 PM 017 1:32 (specimen) CDT PM CDT Kitty Lemus MD LAB - BLOOD ORDERABLES Performing Organization Address [facility] Phon e Number [place] [address] [place] [address] [facility] [address] [place], [place] [address] 7[facility] [phone] Basic metabolic panel (11/10/2016 1:14 PM CDT) P athologist Signature Sodium 138 133 - 144 [place] mmol/L [facility] Potassium 4.1 3.4 - 5.3 [place] mmol/L [facility] Chloride 102 94 - 109 [place] mmol/L [facility] Carbon Dioxide 30 20 - 32 [place] mmol/L [facility] Anion Gap 6 3 - 14 [place] mmol/L [facility] Glucose 81 70 - 99 [place] mg/dL [facility] Urea Nitrogen 21 7 - 30 [place] mg/dL [facility] Creatinine 1.00 0.66 - [place] 1.25 mg/dL [facility] GFR Estimate 72 >60 [place] mL/min/1.[address] Comment: Non GFR Calc GFR Estimate If Black 87 >60 mL/min/1.7m2 F [facility] Comment: GFR Calc Calcium 8.5 8.5 - 10.1 mg/dL [facility] Specimen Anatomical Collection Method Collection Time Receive d Time (Source) Location / / Volume Laterality Blood specimen 11/10/2016 1:14 PM 017 1:32 (specimen) CDT PM CDT Kitty Lemus MD LAB - BLOOD ORDERABLES Performing Organization Address City/State/ZIP Code Phon e Number [place] [address] [place], [place] [address] [facility] [address] [place], [place] [address] [facility] [phone] CBC with platelets differential (11/10/2016 1:14 PM CDT) Patholo gist Method Time Signature WBC 9.1 4.0 - [place] 11.0 [facility] 10e9/L [facility] RBC Count 4.49 4.4 - 5.9 [place] 10e12/L [facility] Hemoglobin 13.4 13.3 - [place] 17.7 g/dL [facility] Hematocrit 40.8 40.0 - [place] 53.0 % [facility] MCV 91 78 - 100 [facility] MCH 29.8 26.5 - [place] 33.0 pg [facility] MCHC 32.8 31.5 - [place] 36.5 g/dL [facility] RDW 13.3 10.0 - [place] 15.0 % [facility] Platelet Count 178 150 - [address] Diff Method Automated [facility] % Neutrophils 53.9 % [facility] % Lymphocytes 33.7 % [facility] % Monocytes 8.8 % [facility] % Eosinophils 1.7 % [facility] % Basophils 0.8 % [facility] % Immature 1.1 % [place] Granulocytes [facility] Nucleated RBCs 0 0 /100 [facility] Absolute 4.9 1.6 - 8.3 [place] Neutrophil [address] [place] [address] Absolute 3.1 0.8 - 5.3 [place] Lymphocytes [address] [place] [address] Absolute 0.8 0.0 - 1.3 [place] Monocytes [address] [place] [address] Absolute 0.2 0.0 - 0.7 [place] Eosinophils [address] [place] [address] Absolute 0.1 0.0 - 0.2 [place] Basophils [address] [place] [address] Abs Immature 0.1 0 - 0.4 [place] Granulocytes [address] [place] [address] Absolute 0.0 [place] Nucleated RBC [facility] Specimen Anatomical Collection Method Collection Time Receive d Time (Source) Location / / Volume Laterality Blood specimen 11/10/2016 1:14 PM 017 1:32 (specimen) CDT PM CDT Kitty Lemus MD LAB - BLOOD ORDERABLES Performing Organization Address City/State/ZIP Code Phon e Number M [facility] [address] [place], [place] [address] [phone] [facility] [address] [place], [place] [address] [place] [address] EKG 12-lead, tracing only (11/10/2016 1:11 PM CDT) [facility] gist Method Time Signature Interpretation ECG Click [...] Coronary atherosclerosis of unspecified type of vessel, inupiat or graft Shortness of breath Shortness of breath CAD (coronary artery disease) Coronary atherosclerosis of unspecified type of vessel, inupiat or graft documented in this encounter Administered [...] 243 mg 243 mg, Oral, ONCE, On 11/10/16 at 1344, For 1 dose aspirin [...] 4 TIMES DAILY RT, First dose on 11/10/16 at 2003 ipratropium - albuterol 0.5 mg/2.5 mg/3 mL [...] Oral, 2 TIMES DAILY, First dose on 11/10/16 at 2004, HOLD for HR < [...] Sanchez, RN) 0358 (Given - Provider: Hortencia Gomez RN) 3 mL, Intracatheter, EVERY 8 HOURS, Firs [...] meds documented in this encounter Care Teams Learning Technologist Relationship Specialty Start Date End Date Mckenzie Mayorga MD PCP - General 07/26/16 12/02/18 [facility] [address] [place] [address] Elizabeth Rousseau MD MD Family Practice 07/31/[address] [address] documented as of this encounter
--- OUTSIDE RECORDS SUMMARY | 2022-07-09 14:46 | XMS_ITS | Encounter Summary ---
:1940 Author Organization [place] Address [address] [facility] [place] [address] Care Team Providers Name Role Phone Zen Rousseau MD Unavailable Luis Alberto Hernandez MD Primary Care Provider Unavailable Encounter Details Date Type Department Care Team Description 12/08/2015 Orders Only [facility] Abhijit Castañedaterol; Heart Clinic MD Ismael Essential hypertension [id number] [place] [address] [address] [place] [id number] Social History Tobacco Use Types Packs/Day [...] athologist Signature Sodium 141 133 - 144 [place] mmol/L [facility] Potassium 4.2 3.4 - 5.3 [place] mmol/L [facility] Chloride 105 94 - 109 [place] mmol/L [facility] Carbon Dioxide 32 20 - 32 [place] mmol/L [facility] Anion Gap 4 3 - 14 [place] mmol/L [facility] Glucose 111 (H) 70 - 99 [place] mg/dL [facility] Urea Nitrogen 18 7 - 30 [place] mg/dL [facility] Creatinine 0.91 0.66 - [place] 1.25 mg/dL [facility] GFR Estimate 80 >60 [place] mL/min/1.[address] Comment: Non GFR Calc GFR Estimate If Black >90 >60 mL/min/1.7m2 F [facility] GFR Calc HOSP ITAL Calcium 9.0 8.5 - 10.1 mg/dL [facility] Specimen Anatomical Collection Method Collection Time Receive d Time (Source) Location / / Volume Laterality Blood specimen 12/08/2015 7:29 AM 016 7:30 (specimen) CDT AM CDT Abhijit Castañeda MD LAB - BLOOD ORDERABLES Performing Organization Address City/[facility] e [facility] [address] [address] [place] [address] [phone] ALT (12/08/2015 7:29 AM CDT) athologist Signature ALT 25 0 - 70 U/L [facility] Specimen Anatomical Collection Method Collection Time Receive d Time (Source) Location / / Volume Laterality Blood specimen 12/08/2015 7:29 AM 016 7:30 (specimen) CDT AM CDT Abhijit Castañeda MD LAB - BLOOD ORDERABLES Performing Organization Address City/[facility] e [facility] [address] [place] [address] [facility] [address] [place], [place] [address], [facility] [phone] Lipid Profile (12/08/2015 7:29 AM CDT) P athologist Signature Cholesterol 166 <200 mg/dL [facility] Triglycerides 148 <150 mg/dL [facility] Comment: Fasting specimen HDL Cholesterol 55 >39 mg/dL [facility] LDL Cholesterol Calculated 81 <100 mg/dL [facility] Comment: Desirable: <100 mg/dl Non HDL Cholesterol 111 <130 mg/dL [facility] Specimen Anatomical Collection Method Collection Time Receive d Time (Source) Location / / Volume Laterality Blood specimen 12/08/2015 7:29 AM 016 7:30 (specimen) CDT AM CDT Abhijit Castañeda MD LAB - BLOOD ORDERABLES Performing Organization Address City/State/ZIP Code Phon e Number M [place] [address] [place], [place] [address] [facility] [address] [place], [place] [address], [facility] [phone] documented in this encounter Visit Diagnoses Diagnosis High cholesterol Pure hypercholesterolemia Essential hypertension Unspecified essential hypertension documented in this encounter Care Teams Trial Management Associate Relationship Specialty Start Date End Date Luis Alberto Hernandez MD PCP - General Family Practice 10/10/15 07/25/16 Zen Rousseau MD MD Family Practice 07/31/[address] [address] documented as of this encounter
--- OUTSIDE RECORDS SUMMARY | 2022-07-09 14:46 | XMS_ITS | Encounter Summary ---
:1940 Author Organization [place] Address [facility] [place] [address] Care Team Providers Name Role Phone Zen Rousseau MD Unavailable Mckenzie Mayorga MD Primary Care Provider Reason for Visit Auth/Cert Specialty Diagnoses / Procedures Referred By Contact Refer red To Contact Gastroenterology Diagnoses screening Rh Endoscopy Procedures COLONOSCOPY [address] [place] [address] Phone: Fax: Referral ID Status Reason Start Date Expiration Date Visits Requ ested Visits Authorized [id number] 1 1 Encounter Details Date Type Department Care Team Description 08/15/2016 Hospital Encounter [facility] Anna Black , Endoscopy Mackenzie MAXWELL [address] [place], [place] GASTROINTESTINAL [address] [phone] [place], [place] [id number] (Wo rk) Social History Tobacco Use Types [...] Comments Blood Pressure 166/98 08/15/2016 11:50 AM COMPUTER INFORMATION SCIENCE PROFESSOR Pulse - - Temperature - - Respiratory Rate 18 08/15/2016 11:50 AM COMPUTER INFORMATION SCIENCE PROFESSOR Oxygen Saturation 98% 08/15/2016 11:50 AM COMPUTER INFORMATION SCIENCE PROFESSOR Inhaled Oxygen Concentration - - Weight 93 kg (205 lb) 08/15/2016 10:22 AM COMPUTER INFORMATION SCIENCE PROFESSOR Height 167.6 cm (5' 6) 08/15/2016 10:22 AM COMPUTER INFORMATION SCIENCE PROFESSOR Body Mass Index 33.09 08/15/2016 10:22 AM COMPUTER INFORMATION SCIENCE PROFESSOR documented in this encounter Discharge Instructions Discharge [...] the chance of preventing its spread. ?? 6426-2334 Estuardo Rico, [address] [place] [address], [place] [address]. All rights reserved. This information is not intended as a substitute for professional medical care. Always follow your healthcare professional's instructions. UTER INFORMATION SCIENCE PROFESSOR documented in this encounter Medications at Time [...] artery disease needed for chest pain involving [place] ir[place] coronary artery of [place] heart without angina pectoris pantoprazole (PROTONIX) Take [...] daily Mixed hyperlipidemia, Coronary artery disease involving [place] coronary artery of [place] heart without angina pectoris documented as of this encounter Progress Notes Anna Black MD - 08/15/2016 11:57 AM COMPUTER INFORMATION SCIENCE PROFESSOR Quick Note: Pt informed of results. Will redo in 3 yr. UTER INFORMATION SCIENCE PROFESSOR documented in this encounter H&P Notes Anna [...] Electronically by: Anna Black August 15, 2016 UTER INFORMATION SCIENCE PROFESSOR documented in this encounter Nursing Notes Tawnya Cristobal RN - 08/15/2016 11:55 AM CST Pt discharged home in stable condition ,pt denies pain pt instructed to start his blood pressure meds on arrival home UTER INFORMATION SCIENCE PROFESSOR documented in this encounter Plan of Treatment Pending Results Name Type Priority Associated Diagnoses Date/Ti me Surgical pathology exam Lab Routine 08/05 10:53 AM COMPUTER INFORMATION SCIENCE PROFESSOR documented as of this encounter Procedures Procedure Name Priority Date/Time Associated Comments Diagnosis SURGICAL PATHOLOGY Routine 08/15/2016 10:53 EXAM AM COMPUTER INFORMATION SCIENCE PROFESSOR SURGICAL PATHOLOGY Routine 08/15/2016 10:45 Resul ts for this EXAM AM COMPUTER INFORMATION SCIENCE PROFESSOR procedure are i n the results section. COLONOSCOPY Routine 08/15/2016 10:23 Results for this AM COMPUTER INFORMATION SCIENCE PROFESSOR procedure are i n the results section. COLONOSCOPY, WITH 08/15/2016 10:20 polyps HEMORRHAGE CONTROL AM COMPUTER INFORMATION SCIENCE PROFESSOR Special Needs Myranda Mayorga ([facility]) COLONOSCOPY, FLEXIBLE, WITH LESION REMOVAL USING 08/15/2016 10:20 AM COMPUTER INFORMATION SCIENCE PROFESSOR polyps SNARE Special Needs Myranda Mayorga ([facility]) documented in this encounter Results Surgical pathology exam (08/15/2016 10:45 AM COMPUTER INFORMATION SCIENCE PROFESSOR) Component Value Ref Test Analysis Performed At [facility] Range Method Time Signature Copath Report Patient Name: DONALDO MCCANN MR#: [id number] Specimen #: [id number] Collected: 08/15/2016 Received: 08/15/2016 [...] received in formalin labeled with the p athaven's name, identifying information and sigmoid polypectomy (x4) [...] B. Microscopic evaluation performed. CPT Codes: A: 34200-HW5 B: 17967-FW3 TESTING LAB LOCATION: [address] ??[address] COLLECTION SITE: Client: [facility] Location: [facility] (R) Specimen (Source) Anatomical Collection Method Collection Time Re ceived Time Location / / Volume Laterality Polyp LARGE INTESTINE 08/15/2016 10:45 (morphologic PART / Unknown AM COMPUTER INFORMATION SCIENCE PROFESSOR abnormality) Comment: History of colon resection Mckenzie Mayorga RN/Lisbeth Hudson Anna Black MD LAB - [facility] Performing Organization Address City/State/ZIP Code Phon e Number [place]ATH COLONOSCOPY (08/15/2016 10:23 AM COMPUTER INFORMATION SCIENCE PROFESSOR) [facility] gist Method Time Signature COLONOSCOPY [facility] RAD IOLOGY RESULTS Patient Name: Donaldo Mccann ?Procedure Date: 08/15/2016 10:23 AM ? Accou nt Number: [id number] Date of : 1940 ?Admit Type: Out [...] and ?oxygen saturations were monitored continuously. The ?[employer] Colonoscope Model #[id number]-H190L, ?[place]ora#132, SN#[id number] was introduced through the ?anus and advanced [...] Procedure Code(s): ? --- Professional --- ? 79339, Colonoscopy, flexible, pro ximal to splenic flexure; with removal ? of tumor(s), polyp(s), or other lesion(s) by snare mar alexander Diagnosis Code(s): ? --- Professional --- ? 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 D12.5, Benign neoplasm of sigmoid colon CPT copyright 2013 [employer]. All rights reserved. The codes documented in this report are prelimin nav and upon it operations analyst review may be revised to meet current compliance requirements. Electronically signed by Anna Black MD Anna Black MD 08/15/2016 11:06 AM I was physically present for the entire viewing portion of t he exam. Anna Black MD Number of Addenda: 0 Note Initiated On: 08/15/2016 10:23 AM MRN: ?[id number] Procedure Date: ? 08/15/2016 10:23:11 AM Scope Withdrawal Time: 0 hours 22 minutes 54 seconds Total Procedure Duration: 0 hours 26 minutes 56 seconds Estimated Blood Loss: ? Scope In: 10:33:51 AM Scope Out: 11:00:47 AM Specimen (Source) Anatomical Collection Method Collection Time Re ceived Time Location / / Volume Laterality 08/15/2016 10:23 AM COMPUTER INFORMATION SCIENCE PROFESSOR Mckenzie Mayorga MD PROCEDURES Performing Organization Address City/State/ZIP Code Phon e Number RADIOLOGY RESULTS documented in this encounter Visit Diagnoses Not on filedocumented in this encounter Active and Recently Administered Medications Times are shown in COMPUTER INFORMATION SCIENCE PROFESSOR. PRN Medication Order 08/13/2016 08/14/2016 08/15/2016 [id number] [...] Intra-procedure documented in this encounter Care Teams Culvert Installer Relationship Specialty Start Date End Date Mckenzie Mayorga MD PCP - General 07/26/16 12/02/18 [facility] [address], [place] [address] [facility] 07/31/[address] [address] documented as of this encounter
--- OUTSIDE RECORDS SUMMARY | 2022-07-09 14:46 | XMS_ITS | Encounter Summary ---
:1940 Author Organization [place] Address [facility] [place] [address] Care Team Providers Name Role Phone Zen Rousseau MD Unavailable Mckenzie Mayorga MD Primary Care Provider Reason for Visit Reason Onset Date Comments Previsit 01/07/2017 Encounter Details Date Type Department Care Team Description 01/07/2017 PRE VISIT [facility] Heart Abhijit Castañeda MD Previsit [facility] [place] [address] [facility] [address] [address] [place] [address] [address] [place] [address] [phone] Social History Tobacco Use Types Packs/Day Years [...] on filedocumented in this encounter Care Teams Resident Care Spec Relationship Specialty Start Date End Date Mckenzie Mayorga MD PCP - General 07/26/16 12/02/18 [facility] [address] [place] [address] Zen Rousseau MD MD Family Practice 07/31/12 [facility] [address] [place] [address] documented as of this encounter
--- OUTSIDE RECORDS SUMMARY | 2022-07-09 14:46 | XMS_ITS | Encounter Summary ---
:1940 Author Organization [place] Address [facility]0 [facility] [place] [address] Care Team Providers Name Role Phone Zen Rousseau MD Unavailable Mckenzie Mayorga MD Primary Care Provider Reason for Visit (Routine) - Closed Specialty Diagnoses / Procedures Referred By Contact Refer red To Contact Cardiology Diagnoses Epic Order, SB pt, weight is 221 lbs, not diabetic, no asthma. [facility] Electrocardiology Procedures EKG STRESS NM LEXISCAN [address] [place], [place] [address] Phone: Referral ID Status Reason Start Date Expiration Date Visits Requ ested Visits Authorized [id number] Closed 11/14/2016 11/14/2017 1 1 Encounter Details Date Type Department Care Team Description 11/14/[address] [facility] Marcy Coker , Electrocardiolgy PA-C [address] [facility] [address] [place], [place] [address] [phone] Social History Tobacco Use Types Packs/Day Years [...] artery disease needed for chest pain involving [place] coronary artery of [place] heart without angina pectoris pantoprazole (PROTONIX) Take [...] daily Mixed hyperlipidemia, Coronary artery disease involving [place] coronary artery of [place] heart without angina pectoris VITAMIN D, Take [...] LEXISCAN -ONE DAY STUDY 11/14/2016 3:30 PM ??DONALDOLORELEI BAUTISTA ??76 years ??Male ??1940. Indication/Clinical History: [...] on filedocumented in this encounter Care Teams Internal Grinding Machine Operator Relationship Specialty Start Date End Date Mckenzie Mayorga MD PCP - General 07/26/16 12/02/18 [facility] [address] [place] [address] Zen Rousseau MD MD [facility] 07/31/12 [facility] [address] [place] [phone] documented as of this encounter
--- OUTSIDE RECORDS SUMMARY | 2022-07-09 14:46 | XMS_ITS | Encounter Summary ---
:1940 Author Organization [place] Address [facility] [place] [address] Care Team Providers Name Role Phone Zen Rousseau MD Unavailable Luis Alberto Hernandez MD Primary Care Provider Unavailable Reason for Visit Reason Onset Date Comments Medication Request 03/05/2016 Crestor Encounter Details Date Type Department Care Team Description 03/05/2016 Telephone [facility] Dipti Henderson cut off machine unloader Request Clinic [facility] (Crestor) [address] [place] [address] [address] [place] [address] Social History Tobacco Use Types [...] on filedocumented in this encounter Care Teams Office Helper Relationship Specialty Start Date End Date Luis Alberto Hernandez MD PCP - General Family Practice 10/10/15 07/25/16 Zen Rousseau MD MD Family Practice 07/31/[address] [phone] documented as of this encounter
--- OUTSIDE RECORDS SUMMARY | 2022-07-09 14:46 | XMS_ITS | Encounter Summary ---
:1940 Author Organization [place] Address [facility] [place] [address] Care Team Providers Name Role Phone Zen Rousseau MD Unavailable Mckenzie Mayorga MD Primary Care Provider Reason for Visit Reason Comments Shortness of Breath Encounter Details Date Type Department Care Team Description 04/23/2017 Office Visit [facility] Ta Trimble tic aortic stenosis (Primary Dx); Heart Clinic MD Jerrell Coronary artery disease involving [place] coronary artery of [place] heart without angina pectoris; [address] Dyspnea on exertion [address] [place], [place] [address] [address] [place], [place] [phone] (Wo rk) [address] [phone] Social History Tobacco Use Types Packs/Day Years [...] note thathe had an echocardiogram done in 2006 which commented on sclerosis but not stenosis. [...] stenosis Yes ??? Coronary artery disease involving [place] coronary artery of [place] heart without angina pectoris ??? Dyspnea on [...] 06/28/2010 INR 0.91 06/27/2010 Ta Trimble MD, [facility] CC Mckenzie Mayorga MD [facility] [address] [place] [address] documented in this encounter Plan of Treatment Not on filedocumented as of this encounter Results N terminal pro BNP outpatient (04/23/2017 3:53 PM CDT) athologist Signature N-Terminal Pro 179 0 - 450 04/23/2017 [place] Bnp pg/mL 4:40 PM CDT [facility] Comment: Reference range shown and results flagge [...] Address City/State/ZIP Code Phon e Number M [facility] [address] [place], [place] [address] [facility] [address] [place], [place] [address] [facility] [phone] documented in this encounter Visit Diagnoses Diagnosis 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
--- OUTSIDE RECORDS SUMMARY | 2022-07-09 14:46 | XMS_ITS | Encounter Summary ---
:1940 Author Organization [place] Address [facility]0 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 *04/23 [facility] Echo Rscc Procedures ECH COMPLETE [address] [place], [place] [address] Phone: Fax: Referral ID Status Reason Start Date Expiration Date Visits Requ ested Visits Authorized [id number] Closed 04/24/2017 04/24/2018 1 1 Encounter Details Date Type Department Care Team Description 04/24/2017 Hospital Encounter [facility] Ta Trimble Coronary artery disease involving [place] coronary artery of [place] heart without angina pectoris; [facility] MD Jerrell Rheumatic aortic stenosis [facility] [address] [place] [address] [place], [place] [address] Social History Tobacco Use Types Packs/Day [...] artery of [place] heart without angina pectoris VITAMIN D, Take 1,000 Units by 0 06/19 CHOLECALCIFEROL, PO mouth daily documented as of this encounter Plan of Treatment Not on filedocumented as of this encounter Procedures Procedure Name Priority Date/Time Associated Diagnosis Comme nts ECHO COMPLETE WITH Routine 04/24/2017 10:03 AM Coronary artery Results for this OPTISON CDT disease involving procedure are in [place] coronary the results artery of [place] section. heart without angina pectoris Rheumatic aortic stenosis documented in this encounter Results ECHO COMPLETE WITH OPTISON (04/24/2017 10:03 AM CDT) Anatomical Region Laterality Modality Echocardiography Specimen (Source) Anatomical Collection Method Collection Time Re ceived Time Location / / Volume Laterality 04/24/2017 9:26 AM CDT Narrative 04/24/2017 12:37 PM CDT [id number]^MAUREEN^TA^[facility] Echocardiography [facility] [address] [facility] [place] [address] Name: DONALDO BAUTISTA : 1940 Study Date: 04/24/2017 09:26 AM Age: 77 yrs Gender: Male Patient [place] [facility] Reason For Study: Atherosclerotic heart disease of [place] coronary artery withou Ordering Physician: TA TRIMBLE Referring Physician: Mckenzie Mayorga MD Performed By: Clotilde Moralez RDCS [...] note might be different from the original. 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
--- OUTSIDE RECORDS SUMMARY | 2022-07-09 14:46 | XMS_ITS | Encounter Summary ---
:1940 Author Organization [place] Address [facility]0 [place] [address] Care Team Providers Name Role Phone Zen Rousseau MD Unavailable Mckenzie Mayorga MD Primary Care Provider Reason for Visit Reason Onset Date Comments Refill Request 11/26/2016 crestor refill, has annual o/v set for Encounter Details Date Type Department Care Team Description 11/26/2016 Refill [facility] Heart Abhijit Castañeda, Refill Request (crestor [facility] [place] MAXWELL refill, has annual o/v [address] [facility] [address] [address] [facility] [address] set for ) [address] [place] [address] [place] [phone] [address] (Wo rk) Social History Tobacco Use [...] Diagnosis Mixed hyperlipidemia Coronary artery disease involving [place] coronary artery of [place] heart without angina pectoris documented in this encounter Care Teams Scraper Hand Relationship Specialty Start Date End Date Mckenzie Mayorga MD PCP - General 07/26/16 12/02/18 [facility] [address] [place] [address] Zen Rousseau MD MD [facility] 07/31/[address] [phone] documented as of this encounter
--- OUTSIDE RECORDS SUMMARY | 2022-07-09 14:46 | XMS_ITS | Encounter Summary ---
:1940 Author Organization [place] Address [facility] [place] [address] Care Team Providers Name Role Phone Zen Rousseau MD Unavailable Mckenzie Mayorga MD Primary Care Provider Reason for Visit Reason Onset Date Comments post ER follow up 11/21/2016 Encounter Details Date Type Department Care Team Description 11/21/2016 Telephone [facility] Heart Maki Mccormick, post ER follow up Clinic [place] [address] [facility] [phone] (Fa x) [address] [place] [address] Social History Tobacco Use Types [...] Castañeda's response below. verbalized understanding and thanked keno writer/runner for the call back. Telephone Encounter - Abhijit Castañeda MD - 11/21/2016 11:33 PM CDT Normal nuclear stress test. Normal LVEF. Normal troponins. No other cardiac recommendations at this time. Will see the patient at his OV on 01/10/17. Telephone Encounter - Brianda Mayra RN - 11/21/2016 2:08 PM CDT Received message from hand reamer, He states he was in the ER for symptoms and had a nuclear study done. He states the software test technician assured him that the heart clinic [...] states he felt better knowing that update. Harvest Supervisor called pt and he states that he excessive sweating and begins to shake. Pt states that he does not have any current chest pain or shortness of breath. Pt would like Dr. Castañeda to be updated with ED notes, and lexiscan and see if he would make any recommendations prior to OV on 01/10/17. Harvest Supervisor offered pt a sooner appt if he is willing to travel to [place]. Pt states that he only goes to [place]. Harvest Supervisor asked pt if he would like to follow up with [facility], but pt states he would like Dr. Castañeda to review first and make recommendations. Harvest Supervisor will route to Dr. Castañeda Chart reviewed: [...] in 2nd obtuse marginal branch artery w/ pooq-[id number] disease in other vessels, EF 50-55%), HLD, [...] any anginal symptoms at that time; per [facility] note they were considering repeating his nuclear [...] testing vs angiogram. 2. CAD hx: Continue J2EE ANDROID DEVELOPER rosuvastatin 20 mg daily, losartan 50 mg daily, and metoprolol 25 mg BID w/ parameters. 3. HTN: Continue ARB and BB as listed above. 4. HLD: Continue statin as listed above. 5. GERD: Continue protonix 40 mg Q48 hrs. 6. Asthma: Scheduled duonebs while awake. Harvest Supervisor will route to Dr. Castañeda to review pt ED and lexiscan results and see if he would like to make any changes prior to OV appt on 01/10/17. Telephone Encounter - Maki Mccormick RN - 11/21/2016 1:35 PM CDT TRIAGE call from patient, he states he was in the ER for symptoms and had a nuclear study done. He states the software test technician assured him that the heart clinic [...] on filedocumented in this encounter Care Teams Transcription Relationship Specialty Start Date End Date Mckenzie Mayorga MD PCP - General 07/26/16 12/02/18 [place] [address] [place] [address] Zen Rousseau MD MD Family Practice 07/31/[address] [address] documented as of this encounter
--- OUTSIDE RECORDS SUMMARY | 2022-07-09 14:46 | XMS_ITS | Encounter Summary ---
:1940 Author Organization [place] Address [facility] [place] [address] Care Team Providers Name Role Phone Zen Rousseau MD Unavailable Mckenzie Mayorga MD Primary Care Provider Reason for Visit Auth/Cert Specialty Diagnoses / Procedures Referred By Contact Refer red To Contact Gastroenterology Diagnoses screening Rh Endoscopy Procedures COLONOSCOPY [address] [place] [address] Phone: Fax: Referral ID Status Reason Start Date Expiration Date Visits Requ ested Visits Authorized [id number] 1 1 Encounter Details Date Type Department Care Team Description 08/15/2016 Surgery [facility] Anna Black, [place] noscopy with Endoscopy Mackenzie MAXWELL multiple polypectomy by [address] [place] cold and hot snare; [place] GASTROINTESTINAL hemoclip placement. [phone] [address] [phone] [place], [place] [address] Surgery Details Date/Time Status Location OR Service [...] Primary Gastroenterology 1 Special Needs Myranda Mayorga ([facility]) documented in this encounter Social History Tobacco [...] Comments Blood Pressure 180/98 08/15/2016 11:00 AM ELECTRONICS PRODUCTION SUPERVISOR Pulse - - Temperature - - Respiratory Rate 24 08/15/2016 11:00 AM ELECTRONICS PRODUCTION SUPERVISOR Oxygen Saturation 92% 08/15/2016 11:00 AM ELECTRONICS PRODUCTION SUPERVISOR Inhaled Oxygen Concentration - - Weight 93 kg (205 lb) 08/15/2016 10:22 AM ELECTRONICS PRODUCTION SUPERVISOR Height 167.6 cm (5' 6) 08/15/2016 10:22 AM ELECTRONICS PRODUCTION SUPERVISOR Body Mass Index 33.09 08/15/2016 10:22 AM ELECTRONICS PRODUCTION SUPERVISOR documented in this encounter Discharge Instructions Discharge [...] the chance of preventing its spread. ?? [phone] [facility], [address] [place] [address], [place] [address]. All rights reserved. This information is not intended as a substitute for professional medical care. Always follow your healthcare professional's instructions. TRONICS PRODUCTION SUPERVISOR documented in this encounter Medications at Time [...] artery disease needed for chest pain involving telida coronary artery of telida heart without angina pectoris pantoprazole (PROTONIX) Take [...] daily Mixed hyperlipidemia, Coronary artery disease involving telida coronary artery of telida heart without angina pectoris documented as of this encounter Progress Notes Anna Black MD - 08/15/2016 11:57 AM ELECTRONICS PRODUCTION SUPERVISOR Quick Note: Pt informed of results. Will redo in 3 yr. TRONICS PRODUCTION SUPERVISOR documented in this encounter H&P Notes Anna [...] Electronically by: Anna Black August 15, 2016 TRONICS PRODUCTION SUPERVISOR documented in this encounter Nursing Notes Tawnya Cristobal RN - 08/15/2016 11:55 AM CST Pt discharged home in stable condition ,pt denies pain pt instructed to start his blood pressure meds on arrival home TRONICS PRODUCTION SUPERVISOR documented in this encounter Plan of Treatment Pending Results Name Type Priority Associated Diagnoses Date/Ti me Surgical pathology exam Lab Routine 08/05 10:53 AM ELECTRONICS PRODUCTION SUPERVISOR documented as of this encounter Procedures Procedure Name Priority Date/Time Associated Comments Diagnosis SURGICAL PATHOLOGY Routine 08/15/2016 10:53 EXAM AM ELECTRONICS PRODUCTION SUPERVISOR SURGICAL PATHOLOGY Routine 08/15/2016 10:45 Resul ts for this EXAM AM ELECTRONICS PRODUCTION SUPERVISOR procedure are i n the results section. COLONOSCOPY Routine 08/15/2016 10:23 Results for this AM ELECTRONICS PRODUCTION SUPERVISOR procedure are i n the results section. COLONOSCOPY, WITH 08/15/2016 10:20 polyps HEMORRHAGE CONTROL AM ELECTRONICS PRODUCTION SUPERVISOR Special Needs Myranda Mayorga ([facility]) COLONOSCOPY, FLEXIBLE, WITH LESION REMOVAL USING 08/15/2016 10:20 AM ELECTRONICS PRODUCTION SUPERVISOR polyps SNARE Special Needs Myranda Mayorga ([facility]) documented in this encounter Results Surgical pathology exam (08/15/2016 10:45 AM ELECTRONICS PRODUCTION SUPERVISOR) Component Value Ref Test Analysis Performed At [facility] Range Method Time Signature Copath Report Patient Name: DONALDO BAUTISTA MR#: [id number] Specimen #: [id number] Collected: 08/15/2016 Received: 08/15/2016 [...] B. Microscopic evaluation performed. CPT Codes: A: 59242-UL9 B: 42414-QK0 TESTING LAB LOCATION: [address] ??[address] COLLECTION SITE: Client: [facility] Specimen (Source) Anatomical Collection Method Collection Time Re ceived Time Location / / Volume Laterality Polyp LARGE INTESTINE 08/15/2016 10:45 (morphologic PART / Unknown AM ELECTRONICS PRODUCTION SUPERVISOR abnormality) Comment: History of colon resection Mckenzie Mayorga RN/Lisbeth Hudson Anna Black MD LAB - KYLE Performing Organization Address City/State/ZIP Code Phon e Number COPATH COLONOSCOPY (08/15/2016 10:23 AM ELECTRONICS PRODUCTION SUPERVISOR) [facility] Method Time Signature COLONOSCOPY [facility] RAD IOLOGY RESULTS Patient Name: Donaldo Bautista ?Procedure Date: 08/15/2016 10:23 AM ? Accou nt Number: [id number] Date of : 1940 ?Admit Type: Out patient Age: 76 ? Gender: Male Attending MD: Anna Blakc MD ?Total Sedation Hugh e: _29____minutes continuous bedside 1:1 Instrument Name: 132 ? Procedure: ?Colonoscopy Indications: ?[place] colon cancer surveillance: Personal ?history of colonic po lyps Providers: ?Anna Black MD (Doc tor) Referring : ? Mckenzie Mayorga (Referring ) Medicines: ?Midazolam 2 mg IV, Fentanyl [...] ?oxygen saturations were monitored continuously. The ?Olympus Peds Colonoscope Model #[id number]-H190L, ?[place]#132, SN#[id number] was introduced through the ?anus and advanced [...] Procedure Code(s): ? --- Professional --- ? 62712, Colonoscopy, flexible, pro ximal to splenic flexure; with removal ? of tumor(s), polyp(s), or other lesion(s) by snare te chnique Diagnosis Code(s): ? --- Professional --- ? 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 D12.5, Benign neoplasm of sigmoid colon CPT copyright 2013 [employer]. All rights reserved. The codes documented in this report are prelimin nav and upon job putter up and ticket preparer review may be revised to meet current compliance requirements. Electronically signed by Anna Black MD Anna Black MD 08/15/2016 11:06 AM I was physically present for the entire viewing portion of t he exam. Anna Black MD Number of Addenda: 0 Note Initiated On: 08/15/2016 10:23 AM MRN: ?[id number] Procedure Date: ? 08/15/2016 10:23:11 AM Scope Withdrawal Time: 0 hours 22 minutes 54 seconds Total Procedure Duration: 0 hours 26 minutes 56 seconds Estimated Blood Loss: ? Scope In: 10:33:51 AM Scope Out: 11:00:47 AM Specimen (Source) Anatomical Collection Method Collection Time Re ceived Time Location / / Volume Laterality 08/15/2016 10:23 AM ELECTRONICS PRODUCTION SUPERVISOR Mckenzie Mayorga MD PROCEDURES Performing Organization Address City/State/ZIP Code Phon e Number RADIOLOGY RESULTS documented in this encounter Visit Diagnoses Not on filedocumented in this encounter Administered Medications Inactive Administered Medications - up to 3 most recent administrations Medication Order MAR Action Action Date Dose Rate Site fentaNYL Citrate (PF) (SUBLIMAZE) Given 08/15/2016 10:36 AM ELECTRONICS PRODUCTION SUPERVISOR 50 mcg injection PRN, Starting on Sat08/15/16 at 1032, Intra-procedure Given 08/15/2016 10:32 AM ELECTRONICS PRODUCTION SUPERVISOR 50 mcg midazolam (VERSED) injection Given 08/15/2016 10:37 AM ELECTRONICS PRODUCTION SUPERVISOR 1 mg PRN, Starting on Sat08/15/16 at 1031, Intra-procedure Given 08/15/2016 10:31 AM ELECTRONICS PRODUCTION SUPERVISOR 1 mg documented in this encounter Active and Recently Administered Medications Times are shown in ELECTRONICS PRODUCTION SUPERVISOR. PRN Medication Order 08/13/2016 08/14/2016 08/15/2016 fentaNYL Citrate (PF) (SUBLIMAZE) injection (CANCELED) 1032 (Given - Provider: Anna Black MD)1036 (Given - Provider: Makenna Goddard, RN - Comment: for discomfort) PRN, Starting Sat08/15/16 at 1032, Intra-procedure midazolam (VERSED) injection (CANCELED) 1031 (Given - Provider: Anna Black MD)1037 (Given - Provider: Makenna Goddard, RN - Comment: for discomfort) PRN, Starting Sat08/15/16 at 1031, Intra-procedure documented in this encounter Care Teams Chief Librarian Work With Blind Relationship Specialty Start Date End Date Mckenzie Mayorga MD PCP - General 07/26/16 12/02/18 [facility] [address] [place] [address] Zen Rousseau MD MD Family Practice 07/31/[address] [phone] documented as of this encounter
--- OUTSIDE RECORDS SUMMARY | 2022-07-09 14:46 | XMS_ITS | Encounter Summary ---
:1940 Author Organization [place] Address [facility] [place] [address] Care Team Providers Name Role Phone Zen Rousseau MD Unavailable Mckenzie Mayorga MD Primary Care Provider Reason for Visit Reason Onset Date Comments Refill Request 11/19/2016 Encounter Details Date Type Department Care Team Description 11/19/2016 Refill [facility] Rona Platt RN Refill Request [address] [place] [address] Social History Tobacco Use Types [...] hypertension documented in this encounter Care Teams Coding Specialist Relationship Specialty Start Date End Date Mckenzie Mayorga MD PCP - General 07/26/16 12/02/18 [facility] [address] [place] [address] Zen Rousseau MD MD Family Practice 07/31/[address] [phone] documented as of this encounter
--- OUTSIDE RECORDS SUMMARY | 2022-07-09 14:46 | XMS_ITS | Encounter Summary ---
:1940 Author Organization [place] Address [address] [facility] [place] [address] Care Team Providers Name Role Phone Zen Rousseau MD Unavailable Mckenzie Mayorga MD Primary Care Provider Reason for Visit Reason Comments Hypertension Encounter Details Date Type Department Care Team Description 01/10/2017 Office Visit [facility] Edna Jolley ry artery disease involving [place] coronary artery of [place] heart without angina pectoris (Primary Dx); Heart Clinic MD Ismael Past history of myocardial infarction; [place] [address] [facility] Stented coronary artery; [address] Aortic valve disorder; [address] [place], [place] Essential hypertension; [place] [address] Mixed hyperlipidemia [address] Social History Tobacco Use [...] of seeing your patient, Donaldo Bautista, at [facility] for evaluation of coronary artery disease, hyperlipidemia, morbid obesity and hypertension. The patient is a delightful 76-year-old accompanied by his today, status post inferolateral wall myocardial infarction in 06/2010. Coronary angiography demonstrated high-grade stenosis of the second obtuse marginal branch artery, which was then stented using a drug-eluting stent. He had lyah-wl-ihqulbnf disease in his other vessels and an [...] Edna Jolley MD cc: [place] [address] EDNA JOLLEY MD, [facility] [place]: al Name: DONALDO BAUTISTA MRN: [id number] Account: [id number] : 1940 Service Date: 01/10/2017 Document: [id number] Edna Jolley MD - 01/10/2017 2:15 PM CDT HPI and Plan: See dictation:[id number] Orders Placed This Encounter Procedures ??? Follow-Up with Process Chemist No orders of the defined types were placed in this encounter. There are no discontinued medications. Encounter Diagnoses Name Primary? Coronary artery disease involving [place] coronary artery of [place] heart without angina pectorisYes ??? Past history [...] gross motor deficits CC Mckenzie Mayorga MD [place] [address] [place] [address] documented in this encounter Plan of Treatment Not on filedocumented as of this encounter Visit Diagnoses Diagnosis Coronary artery disease involving [place] coronary artery of [place] heart without angina pectoris - Primary Past history of myocardial infarction Old myocardial infarction Stented coronary artery Postsurgical percutaneous transluminal c oronary angioplasty status Aortic valve disorder Aortic valve disorders Essential hypertension Unspecified essential hypertension Mixed hyperlipidemia documented in this encounter Care Teams Air Pollution Control Engineer Relationship Specialty Start Date End Date Mckenzie Mayorga MD PCP - General 07/26/16 12/02/18 [place] [address] [address], [place] [address] Zen Rousseau MD MD Family Practice 07/31/[address] [phone] documented as of this encounter
--- OUTSIDE RECORDS SUMMARY | 2022-07-09 14:46 | XMS_ITS | Encounter Summary ---
:1940 Author Organization [place] Address [facility] [place] [address] Care Team Providers Name Role Phone Zen Rousseau MD Unavailable Mckenzie Mayorga MD Primary Care Provider Encounter Details Date Type Department Care Team Description 04/23/2017 Orders Only [facility] Heart Rheu matic aortic stenosis; [facility] Coronary artery disease invo lving [place] coronary artery of [place] heart without angina pectoris; [address] [place] [address] [place] [address] Social History Tobacco Use [...] Coronary artery the results disease involving section. 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
--- OUTSIDE RECORDS SUMMARY | 2022-07-09 14:46 | XMS_ITS | Encounter Summary ---
:1940 Author Organization [place] Address [facility] [place] [address] Care Team Providers Name Role Phone Zen Rousseau MD Unavailable Luis Alberto Hernandez MD Primary Care Provider Unavailable Encounter Details Date Type Department Care Team Description 06/05/2016 [facility] [employer] Mixed hyperlipidemia [address] [place] [address] Social History Tobacco Use [...] Signature ALT 20 0 - 70 U/L [facility] Specimen Anatomical Collection Method Collection Time Receive d Time (Source) Location / / Volume Laterality Blood specimen 06/05/2016 7:44 AM 016 7:47 (specimen) CDT AM CDT Abhijit Castañeda MD LAB - BLOOD ORDERABLES Performing Organization Address City/[facility]/ZIP [facility] Phon e Number M [facility] [address] [place], [place] [address] [facility] [address] [place], [place] [address], [facility] [phone] Lipid Profile (06/05/2016 7:44 AM CDT) Analysis Performed At Patho logist Time Signature Cholesterol 159 <200 mg/dL [facility] Triglycerides 148 <150 mg/dL [facility] HDL Cholesterol 61 >39 mg/dL [facility] LDL Cholesterol 68 <100 mg/dL [facility] Comment: Desirable: <100 mg/dl Non HDL Cholesterol 98 <130 mg/dL [facility] Specimen Anatomical Collection Method Collection Time Receive d Time (Source) Location / / Volume Laterality Blood specimen 06/05/2016 7:44 AM 016 7:47 (specimen) CDT AM CDT Abhijit Castañeda MD LAB - BLOOD ORDERABLES Performing Organization Address City/[facility] Phon e Number M [facility] [address] [place], [place] [address] [facility] [address] [place], [place] [address], [facility] [phone] documented in this encounter Visit Diagnoses Diagnosis Mixed hyperlipidemia documented in this encounter Care Teams Redrawer Relationship Specialty Start Date End Date Luis Alberto Hernandez MD PCP - General Family Practice 10/10/15 07/25/16 Zen Rousseau MD MD Family Practice 07/31/12 [facility] [address] [facility] [place] [id number] documented as of this encounter
--- OUTSIDE RECORDS SUMMARY | 2022-07-09 14:46 | XMS_ITS | Encounter Summary ---
:1940 Author Organization [place] Address [address] [facility] [address] Care Team Providers Name Role Phone Zen Rousseau MD Unavailable Luis Alberto Hernandez MD Primary Care Provider Unavailable Mckenzie Mayorga MD Primary Care Provider Reason for Visit Reason Onset Date Comments Prior Auth - Medication 12/08/2015 rosuvastatin (CR ESTOR) 20 MG tablet Encounter Details Date Type Department Care Team Description 12/08/2015 Telephone [facility] Heart Abhijit Castañeda Prior Auth - Medication Clinic Mackenzie Guevara MD (rosuvastatin (CRESTOR) [address] [place] [facility] 20 MG tablet) [address] [place] [phone] Social History Tobacco Use Types Packs/Day Years Used Date Smoking Tobacco: Former Smokeless Tobacco: Never Comments: quit about 30 years ago Alcohol Use Standard Drinks/Week Comments No 0 (1 standard drink = 0.6 oz pure alcoho l) Sex Assigned at Date Recorded Not on file documented as of this encounter Miscellaneous Notes Telephone Encounter - Mallory Baldwin - 03/05/2016 8:45 AM CDT Images from [...] from the original note were not included. [facility] Prior Authorization Team PA Initiation Medication: rosuvastatin (CRESTOR) 20 MG tablet Insurance Company: [facility] Filling the Rx: [id number] - [place], [place] - [address] [facility] Filling Pharmacy Filling Pharmacy Start Date: 03/01/2016 documented in this encounter Plan of Treatment Not on filedocumented as of this encounter Visit Diagnoses Not on filedocumented in this encounter Care Teams Cardiopulmonary Technician Relationship Specialty Start Date End Date Luis Alberto Hernandez MD PCP - General Family Practice 10/10/15 07/25/16 Mckenzie Mayorga MD PCP - General 07/26/16 12/02/18 [place] [address] [place] [address] Zen Rousseau MD MD Family Practice 07/31/[address] [phone] documented as of this encounter
--- OUTSIDE RECORDS SUMMARY | 2022-07-09 14:46 | XMS_ITS | Encounter Summary ---
:1940 Author Organization [place] Address [address] [facility] [place] [address] Care Team Providers Name Role Phone Zen Rousseau MD Unavailable Mckenzie Mayorga MD Primary Care Provider Reason for Visit (Routine) - Closed Specialty Diagnoses / Procedures Referred By Contact Refer red To Contact Radiology / Radiology. Diagnoses Epic Order, SB pt, weight is 221 lbs, not diabetic, no asthma. Rh Nuclear Medicine Procedures NM MPI WITH LEXISCAN [address] [place] [address] Phone: Fax: Referral ID Status Reason Start Date Expiration Date Visits Requ ested Visits Authorized [id number] Closed 11/14/2016 11/12/2017 1 1 Encounter Details Date Type Department Care Team Description 11/14/2016 Hospital Encounter [facility] Marcy Coker Shortness of breath; [facility] PERRY Kincaid CAD (coronary artery disease) [address] [facility] [address] [facility] [address] [place], [place] [phone] [address] Social History Tobacco Use Types Packs/Day Years [...] daily Mixed hyperlipidemia, Coronary artery disease involving hamilton [...] disease undergoing stress test for dyspnea. In 010 he underwent stents to the OM [...] as not appreciated. RANDY PERKINS MD Marcy Codi Coker PA-C IMG [place] ORDERABLES documented in this encounter Visit Diagnoses Diagnosis Shortness of breath CAD (coronary artery disease) Coronary atherosclerosis of unspecified type of vessel, hamilton or graft documented in this encounter Administered [...] mCi documented in this encounter Care Teams Inspector Metal Fabricating Relationship Specialty Start Date End Date Mckenzie Mayorga MD PCP - General 07/26/16 12/02/18 [facility] [address] [place] [address] Zen Rousseau MD MD Family Practice 07/31/[address] [phone] documented as of this encounter
--- OUTSIDE RECORDS SUMMARY | 2022-07-09 14:46 | XMS_ITS | Encounter Summary ---
:1940 Author Organization [place] Address [address] [facility] [place] [address] Care Team Providers Name Role Phone Zen Rousseau MD Unavailable Luis Alberto Hernandez MD Primary Care Provider Unavailable Reason for Visit Reason Onset Date Comments Results 06/06/2016 FLP Encounter Details Date Type Department Care Team Description 06/06/2016 Telephone [facility] Heart Jos Platt RN Results (FLP) Clinic [address] [place] [address] Social History Tobacco Use Types [...] Primary documented in this encounter Care Teams Picking Machine Operator Relationship Specialty Start Date End Date Luis Alberto Hernandez MD PCP - General Family Practice 10/10/15 07/25/16 Zen Rousseau MD MD Family Practice 07/31/[address] [phone] documented as of this encounter
--- OUTSIDE RECORDS SUMMARY | 2022-07-09 14:47 | XMS_ITS | Encounter Summary ---
:1940 Author Organization [place] Address [address] [facility] [place] [address] Care Team Providers Name Role Phone Zen Rousseau MD Unavailable Luis Alberto Hernandez MD Primary Care Provider Unavailable Reason for Visit Reason Comments Heart Problem Hx of hyperlipidemia, HTN, C AD, Inferior ME, aortic valve disease - Closed Specialty Diagnoses / Procedures Referred By Contact Refer red To Contact Diagnoses Coronary artery disease involving absentee-shawnee coronary artery of absentee-shawnee heart without angina pectoris Edna Jolley MD [address] [place] [address] Referral ID Status Reason Start Date Expiration Date Visits Requ ested Visits Authorized [id number] Closed 11/30/2015 11/29/2016 1 1 Encounter Details Date Type Department Care Team Description 12/08/2015 Office Visit [facility] Edna Jolley ry artery disease involving absentee-shawnee coronary artery of absentee-shawnee heart without angina pectoris (Primary Dx); Heart Clinic MD Ismael Mixed hyperlipidemia; [place] [address] Aortic valve disorder; [address] Past history of myocardial infarction [address] [place] [address] Social History Tobacco Use Types [...] December 08, 2015 [place] [address] RE:Donaldo Bautista :[address] Hernandez: I again [facility] the [facility], hyper[facility], morbid obesity and hypertension. This patient is a delightful 75-year-old accompanied by his today status post inferolateral wall myocardial infarction in 06/2010. Coronary angiography demonstrated high-grade stenosis of the second obtusemarginal branch artery which was then stented using a drug- eluting stent. He had [id number] disease in his other vessels and ejection [...] was in attendance. Sincerely, Edna Jolley MD, FACC EDNA JOLLEY MD, [facility] MT: PRISCILA Name: DONALDO BAUTISTA MRN: [id number] Account: [id number] : 1940 Service Date: 12/08/2015 Document: [id number] Edna Jolley MD - 12/08/2015 2:53 PM CDT HPI and Plan: See dictation:[id number] Orders Placed This Encounter Procedures ??? Lipid Profile ??? ALT ??? Follow-Up with Actionscript Developer Orders Placed This Encounter Medications ??? rosuvastatin (CRESTOR) 20 MG tablet Sig: Take 1 tablet (20 mg) by mouth daily Dispense: 90 tablet Refill: 3 Medications Discontinued During This Encounter Medication Reason ??? rosuvastatin (CRESTOR) 20 MG tablet Reorder Encounter Diagnoses Name Primary? Coronary artery disease involving absentee-shawnee coronary artery of absentee-shawnee heart without angina pectorisYes ??? Mixed hyperlipidemia [...] [facility] [address] [place] [address] documented in this encounter Plan of Treatment Not on filedocumented as of this encounter Results ALT (06/05/2016 7:44 AM CDT) athologist Signature ALT 20 0 - 70 U/L [facility] Specimen Anatomical Collection Method Collection Time Receive d Time (Source) Location / / Volume Laterality Blood specimen 06/05/2016 7:44 AM 016 7:47 (specimen) CDT AM CDT Edna Jollye MD LAB - BLOOD ORDERABLES Performing Organization Address City/State/ZIP Code Phon e Number [place] [address] [address] [facility] [address] [phone] Lipid Profile (06/05/2016 7:44 AM CDT) Analysis Performed At Patho logist Time Signature Cholesterol 159 <200 mg/dL [facility] Triglycerides 148 <150 mg/dL [facility] HDL Cholesterol 61 >39 mg/dL [facility] LDL Cholesterol 68 <100 mg/dL [facility] Comment: Desirable: <100 mg/dl Non HDL Cholesterol 98 <130 mg/dL [facility] Specimen Anatomical Collection Method Collection Time Receive d Time (Source) Location / / Volume Laterality Blood specimen 06/05/2016 7:44 AM 016 7:47 (specimen) CDT AM CDT Edna Jolley MD LAB - BLOOD ORDERABLES Performing Organization Address City/State/ZIP Code Phon e Number M [facility] [address] [place], [place] [address] [facility] [address] [phone] documented in this encounter Visit Diagnoses Diagnosis Coronary artery disease involving absentee-shawnee coronary artery of absentee-shawnee heart without angina pectoris - Primary Mixed hyperlipidemia Aortic valve disorder Aortic valve disorders Past history of myocardial infarction Old myocardial infarction documented in this encounter Care Teams Lamination Inspector Relationship Specialty Start Date End Date Luis Alberto Hernandez MD PCP - General Family Practice 10/10/15 07/25/16 Zen Rousseau MD MD Family Practice 07/31/[address] [address] documented as of this encounter
--- OUTSIDE RECORDS SUMMARY | 2022-07-09 14:47 | XMS_ITS | Encounter Summary ---
:1940 Author Organization [place] Address [facility] [place] [address] Care Team Providers Name Role Phone Zen Rousseau MD Unavailable Luis Alberto Hernandez MD Primary Care Provider Unavailable Reason for Visit Reason Onset Date Comments Previsit 12/06/2015 Encounter Details Date Type Department Care Team Description 12/06/2015 PRE VISIT [facility] Abhijit Castañeda MD Previsit Clinic [place] [address] [place] [address] [address] [address] [place] [address] [address] [place] [address] [phone] Social History Tobacco Use Types Packs/Day Years [...] on filedocumented in this encounter Care Teams Child Care Group Leader Relationship Specialty Start Date End Date Luis Alberto Hernandez MD PCP - General Family Practice 10/10/15 07/25/16 Zen Rousseau MD MD Family Practice 07/31/[address] [address] documented as of this encounter
--- OUTSIDE RECORDS SUMMARY | 2022-07-09 14:47 | XMS_ITS | Encounter Summary ---
:1940 Author Organization [place] Address [facility] [place] [address] Care Team Providers Name Role Phone Zen Rousseau MD Unavailable Mckenzie Mayorga MD Primary Care Provider Reason for Visit Reason Comments Anxiety Encounter Details Date Type Department Care Team Description 09/29/2015 Emergency [facility] Luis Alberto Salinas MD Hyperhydrosis disorder [facility] Emergency Dep t [facility] [address] [place] [address] [facility] [address] [place], [place] [id number] (Wo rk) Social History Tobacco Use Types [...] Comments Blood Pressure 135/78 09/29/2015 4:15 PM COLLEGE COACH Pulse 60 09/29/2015 1:03 PM COLLEGE COACH Temperature 36.6 ??C (97.8 ??F) 09/29/2015 1:03 PM COLLEGE COACH Respiratory Rate 18 09/29/2015 1:03 PM COLLEGE COACH Oxygen Saturation 95% 09/29/2015 4:15 PM COLLEGE COACH Inhaled Oxygen Concentration - - Weight - - Height - - Body Mass Index - - documented in this encounter Discharge Instructions Discharge InstructionsEgger, Luis Alberto W, MD - 09/29/2015 4:10 PM CST If you develop other symptoms during your sweating episodes, return to Emergency Room, otherwise follow up with PCP or partner senior pensions administrator tomorrow. Remember that you can always come back to the Emergency Department if you are not able to see your regular doctor in the amount of time listed above, if you get any new symptoms, or if there is anything that worries you. EGE COACH documented in this encounter Medications at Time of Discharge Medication Sig Dispensed Refills Start Date End Date aspirin 81 MG tablet Take 81 mg by mouth 0 daily budesonide-formoterol Inhale 2 puffs into 0 (SYMBICORT) 80-4.5 the lungs 2 times MCG/ACT Inhaler daily Cyanocobalamin (VITAMIN Take 500 mcg by mouth 0 B 12 PO) daily pantoprazole (PROTONIX) Take 40 mg by mouth 0 40 MG enteric coated every 48 hours tablet albuterol (2.5 MG/3ML) Take 1 vial by 0 06/19/2022 0.083% nebulizer nebulization every 6 solution hours as needed for shortness of breath / dyspnea or wheezing metoprolol (LOPRESSOR) Take 25 mg by mouth [...] old male with a history of CAD, NV, and s/p stent placement who presentswith diaphoresis [...] Past Medical History: Hypertension High Cholesterol CAD NV Stented coronary artery Uncomplicated asthma Past Surgical [...] 1259. Read at 1306. Rate 62 bpm. [place] interval 156. QRS duration 92. QT/QTc 404/410. [...] 0511 Luis Alberto Salinas MD 09/30/15 0514 EGE COACH Jess Max RN - 09/29/2015 12:57 PM CST Pt had sudden onset of scarred to feeling Anxious feeling; denies chest pain; sob; was severe diaphoretic ; aox3 abc's intact EGE COACH documented in this encounter Plan of Treatment Not on filedocumented as of this encounter Procedures Procedure Name Priority Date/Time Associated Comments Diagnosis ROUTINE UA WITH STAT 09/29/2015 3:49 PM Result s for this MICROSCOPIC COLLEGE COACH procedure are i n the results section. XR CHEST 2 VIEWS STAT 09/29/2015 2:47 PM Resul ts for this COLLEGE COACH procedure are i n the results section. TROPONIN POCT Routine 09/29/2015 2:14 PM Results for this COLLEGE COACH procedure are i n the results section. CBC WITH PLATELETS & STAT 09/29/2015 2:10 PM R esults for this DIFFERENTIAL COLLEGE COACH procedure are i n the results section. TSH WITH FREE T4 STAT 09/29/2015 2:10 PM Resul ts for this REFLEX COLLEGE COACH procedure are i n the results section. MAGNESIUM STAT 09/29/2015 2:10 PM Results f or this COLLEGE COACH procedure are i n the results section. COMPREHENSIVE STAT 09/29/2015 2:10 PM Results for this METABOLIC PANEL COLLEGE COACH procedure ar e in the results section. GLUCOSE BY METER Routine 09/29/2015 1:14 PM Resul ts for this COLLEGE COACH procedure are i n the results section. EKG 12-LEAD, TRACING STAT 09/29/2015 12:59 Res ults for this ONLY PM COLLEGE COACH procedure are i n the results section. documented in this encounter Results (ABNORMAL) UA with Microscopic (09/29/2015 3:49 PM COLLEGE COACH) [facility] Method Time Signature Color Urine Yellow [facility] Appearance Urine Clear [facility] Glucose Urine Negative NEG mg/dL [facility] Bilirubin Urine Negative NEG [facility] Ketones Urine Negative NEG mg/dL [facility] Specific [place] 1.017 1.003 - [place] Urine 1.035 [facility] Blood Urine Negative NEG [facility] pH Urine 5.0 5.0 - 7.0 [place] pH [facility] Protein Albumin Negative NEG mg/dL [place] Urine [facility] Urobilinogen Normal 0.0 - 2.0 [place] mg/dL mg/dL [facility] Nitrite Urine Negative NEG [facility] Leukocyte Negative NEG [place] Esterase Urine [facility] Source Midstream [facility] WBC Urine 1 0 - 2 [facility] RBC Urine 0 0 - 2 [facility] Mucous Urine Present (A) NEG /LPF [facility] Specimen Anatomical Collection Method Collection Time Receive d Time (Source) Location / / Volume Laterality Urine specimen URINE SPECIMEN 09/29/2015 3:49 PM 09/29 3:53 (specimen) OBTAINED BY CLEAN COLLEGE COACH PM COLLEGE COACH CATCH PROCEDURE / Unknown Luis Alberto Salinas MD LAB - URINE ORDERABLES Performing Organization Address City/State/ZIP Code Phon e Number [place] [address] [address] [facility] [address] [phone] XR Chest 2 Views (09/29/2015 2:47 PM COLLEGE COACH) Anatomical Region Laterality Modality Chest Computed Radiography Specimen (Source) Anatomical Location Collection Method / Collectio n Time Received Time / Laterality Volume Impressions 09/29/2015 3:23 PM COLLEGE COACH IMPRESSION: ??No focal infiltrates. Probable old left rib fractures. Flattened hemidiaphragms and increased A P diameter suggesting emphysematous changes. No acute process. SAQIB HODGE MD Narrative 09/29/2015 3:23 PM COLLEGE COACH XR CHEST 2 VW ??09/29/2015 2:47 PM [...] ORDER MYNOR Troponin POCT (09/29/2015 2:14 PM COLLEGE COACH) athologist Signature Troponin I 0.00 0.00 - 0.10 POINT OF CARE ug/L TEST, HANDHELD METER Specimen Anatomical Collection Method Collection Time Receive d Time (Source) Location / / Volume Laterality 09/29/2015 2:14 PM 6 2:35 COLLEGE COACH PM COLLEGE COACH Luis Alberto Salinas MD LAB - ENTER/EDIT POCT Performing Organization Address City/State/ZIP Code Phon e Number [facility] POINT OF CARE TEST, HANDHELD METER POINT OF CARE TEST, HANDHELD METER Magnesium (09/29/2015 2:10 PM COLLEGE COACH) athologist [facility] Magnesium 2.1 1.6 - 2.3 [facility] mg/dL [facility] Specimen Anatomical Collection Method Collection Time Receive d Time (Source) Location / / Volume Laterality Blood specimen 09/29/2015 2:10 PM 016 2:32 (specimen) COLLEGE COACH PM COLLEGE COACH Luis Alberto Salinas MD LAB - BLOOD ORDERABLES Performing Organization Address City/[facility]/ZIP Code Phon e Number [facility] [address] [place] [phone] [facility] [address] [place] [address], [facility] [phone] TSH with free T4 reflex (09/29/2015 2:10 PM COLLEGE COACH) athologist Signature TSH 1.95 0.40 - 4.00 [facility] mU/L [facility] Specimen Anatomical Collection Method Collection Time Receive d Time (Source) Location / / Volume Laterality Blood specimen 09/29/2015 2:10 PM 016 2:32 (specimen) COLLEGE COACH PM COLLEGE COACH Luis Alberto Salinas MD LAB - BLOOD ORDERABLES Performing Organization Address [facility]/ZIP [facility] Phon e Number M [facility] [address] [place], [place] [address] [facility] [address] [place] [phone], [facility] [phone] (ABNORMAL) Comprehensive metabolic panel (09/29/2015 2:10 PM COLLEGE COACH) P athologist Signature Sodium 139 133 - 144 [place] mmol/L [facility] Potassium 4.1 3.4 - 5.3 [place] mmol/L [facility] Chloride 103 94 - 109 [place] mmol/L [facility] Carbon Dioxide 29 20 - 32 [place] mmol/L [facility] Anion Gap 7 3 - 14 [place] mmol/L [facility] Glucose 93 70 - 99 [place] mg/dL [facility] Urea Nitrogen 22 7 - 30 [place] mg/dL [facility] Creatinine 1.22 0.66 - [place] 1.25 mg/dL [facility] GFR Estimate 58 (L) >60 [place] mL/min/1.7 [facility] m2 HOSPITAL Comment: Non GFR Calc GFR Estimate If Black 70 >60 mL/min/1.7m2 F [facility] Comment: GFR Calc Calcium 8.9 8.5 - 10.1 mg/dL [facility] Bilirubin Total 1.4 (H) 0.2 - 1.3 mg/dL [facility] Albumin 3.5 3.4 - 5.0 g/dL [facility] Protein Total 7.0 6.8 - 8.8 g/dL [facility] Alkaline Phosphatase 62 40 - 150 U/L [facility] ALT 30 0 - 70 U/L [facility] AST 19 0 - 45 U/L [facility]ITAL Specimen Anatomical Collection Method Collection Time Receive d Time (Source) Location / / Volume Laterality Blood specimen 09/29/2015 2:10 PM 016 2:32 (specimen) COLLEGE COACH PM COLLEGE COACH Luis Alberto Salinas MD LAB - BLOOD ORDERABLES Performing Organization Address City/State/ZIP Code Phon e Number M [facility] [address] [place], [place] [address] [facility] [address] [place], [place] [address] 7, [facility] [phone] (ABNORMAL) CBC with platelets differential (09/29/2015 2:10 PM COLLEGE COACH) Patholo gist Method Time Signature WBC 12.9 (H) 4.0 - [place] 11.[address] RBC Count 4.76 4.4 - 5.9 [place] 10e12/L [facility] Hemoglobin 14.2 13.3 - [place] 17.7 g/dL [facility] Hematocrit 44.2 40.0 - [place] 53.0 % [facility] MCV 93 78 - 100 [place] fl [facility] MCH 29.8 26.5 - [place] 33.0 pg [facility] MCHC 32.1 31.5 - [place] 36.5 g/dL [facility] RDW 13.2 10.0 - [place] 15.0 % [facility] Platelet Count 176 150 - [address] Diff Method Automated [place] Method [facility] % Neutrophils 73.5 % [facility] % Lymphocytes 18.2 % [facility] % Monocytes 6.8 % [facility] % Eosinophils 0.3 % [facility] % Basophils 0.2 % [facility] % Immature 1.0 % [place] Granulocytes [facility] Nucleated RBCs 0 0 /100 [facility] Absolute 9.5 (H) 1.6 - 8.3 [place] Neutrophil [address] [place] [address] Absolute 2.4 0.8 - 5.3 [place] Lymphocytes [address] [place] [address] Absolute 0.9 0.0 - 1.3 [place] Monocytes [address] [place] [address] Absolute 0.0 0.0 - 0.7 [place] Eosinophils [address] [place] [address] Absolute 0.0 0.0 - 0.2 [place] Basophils [address] [place] [address] Abs Immature 0.1 0 - 0.4 [place] Granulocytes [address] [place] [address] Absolute 0.0 [place] Nucleated RBC [facility] Specimen Anatomical Collection Method Collection Time Receive d Time (Source) Location / / Volume Laterality Blood specimen 09/29/2015 2:10 PM 016 2:32 (specimen) COLLEGE COACH PM COLLEGE COACH Luis Alberto Salinas MD LAB - BLOOD ORDERABLES Performing Organization Address City/State/ZIP Code Phon e Number M [facility] [address] [place], [place] [address] [facility] [address] [place], [place] [address] [facility] [phone] Glucose by meter (09/29/2015 1:14 PM COLLEGE COACH) P athologist Signature Glucose 98 70 - 99 POINT OF CARE mg/dL TEST, GLUCOSE Specimen Anatomical Collection Method Collection Time Receive d Time (Source) Location / / Volume Laterality 09/29/2015 1:14 PM 6 1:20 COLLEGE COACH PM COLLEGE COACH Luis Alberto Salinas MD LAB - BEAKER POCT Performing Organization Address City/State/ZIP Code Phon e Number [facility] POINT OF CARE TEST, GLUCOSE POINT OF CARE TEST, GLUCOSE EKG 12 lead (09/29/2015 12:59 PM COLLEGE COACH) Patholo gist Method Time Signature Interpretation ECG Click View RADIOLOGY Image link RESULTS to view waveform and result Specimen (Source) Anatomical Collection Method Collection Time Re ceived Time Location / / Volume Laterality 09/29/2015 12:59 PM COLLEGE COACH Luis Alberto Salinas MD ECG ORDERABLES Performing Organization Address City/[facility] Phon e Number RADIOLOGY RESULTS documented in this encounter Visit Diagnoses Diagnosis Hyperhydrosis disorder Primary focal hyperhidrosis documented in this encounter Active and Recently Administered Medications Care Teams Bufferer Relationship Specialty Start Date End Date Mckenzie Mayorga MD PCP - General 08/10/15 10/09/15 [facility] [address] [place] [address] Zen Rousseau MD MD Family Practice 07/31/[address] [phone] documented as of this encounter
--- OUTSIDE RECORDS SUMMARY | 2022-07-09 14:47 | XMS_ITS | Encounter Summary ---
:1940 Author Organization [place] Address [address] [facility] [place] [address] Care Team Providers Name Role Phone Zen Rousseau MD Unavailable Luis Alberto Hernandze MD Primary Care Provider Unavailable Reason for Visit (Routine) - Closed Specialty Diagnoses / Procedures Referred By Contact Refer red To Contact Radiology / Radiology. Diagnoses Non epic, sb clinic,pt to pup, pt to arrive at [address] Scan [facility] Procedures CT ABDOMEN PELVIS [address] [employer] [address] [place] [address] Phone: Fax: Referral ID Status Reason Start Date Expiration Date Visits Requ ested Visits Authorized [id number] Closed 10/12/2015 10/10/2016 1 1 Encounter Details Date Type Department Care Team Description 10/12/2015 Hospital Encounter [facility] Earl Hernandez, unspecified fever cause; [facility] Luis Alberto Guevara MD Abdominal pain, unspecified abdominal lo cation [id number] [facility] INACTIVE [address] [place] 12/02/2020 [place] [address] Social History Tobacco Use Types [...] Fever, unspecif ied Results for this [employer] HEALTH TYPE TECHNICIAN fever cause procedure are in Abdominal pain, the results unspecified section. abdominal location documented in this encounter Results CT Abdomen Pelvis w Contrast (10/12/2015 3:31 PM HEALTH TYPE TECHNICIAN) Anatomical Region Laterality Modality Abdomen/Pelvis, SUBRAD CT BODY, UMP CT ABDOMEN PELVIS Computed Tomography Specimen (Source) Anatomical Location Collection Method / Collectio n Time Received Time / Laterality Volume Impressions 10/12/2015 6:56 PM HEALTH TYPE TECHNICIAN IMPRESSION: 1. A long segment of mildly thick-walled mid ileum in the central abdomen. This is nonspecific, but most l ikely represents infectious or inflammatory enteritis. 2. No other cause of acute pain identifi ed in the abdomen or pelvis. RYLEE KEYS MD Narrative 10/12/2015 6:56 [address] TECHNICIAN CT ABDOMEN AND PELVIS WITH CONTRAST ?? [...] chloride BOLUS New Bag 10/12/2015 3:17 PM HEALTH TYPE TECHNICIAN 55 mLs Intravenous, 1,000 mL, ONCE, On 10/12/15 at 1515, For 1 dose iopamidol (ISOVUE-370) 76% solution 500 mL Given 10/12/2015 3:17 PM HEALTH TYPE TECHNICIAN 100 mLs 500 mL, Intravenous, ONCE, On 10/12/15 at 1515, For 1 dose documented in this encounter Care Teams Lead Shipper Relationship Specialty Start Date End Date Luis Alberto Hernandez MD PCP - General Family Practice 10/10/15 07/25/16 Zen Rousseau MD MD Family Practice 07/31/[address] [phone] documented as of this encounter
--- OUTSIDE RECORDS SUMMARY | 2022-07-09 14:47 | XMS_ITS | Encounter Summary ---
:1940 Author Organization [place] Address [facility] [place] [address] Care Team Providers Name Role Phone Zen Rousseau MD Unavailable Mckenzie Mayorga MD Primary Care Provider Reason for Visit Reason Onset Date Comments Previsit 09/27/2015 Encounter Details Date Type Department Care Team Description 09/27/2015 PRE VISIT [facility] Heart Abhijit Castañeda MD Previsit Clinic [address] [address] [place] [address] [address] [place] [address] [phone] Social History Tobacco Use Types Packs/Day Years [...] this encounter Results (ABNORMAL) Hemoglobin A1c (02/07/2015) P athologist Signature Hemoglobin A1C 6.1 (A) 4.3 - 6.0 MISYS % Specimen (Source) Anatomical Location Collection Method / Collectio n Time Received Time / Laterality Volume Blood specimen 02/07/2015 (specimen) [facility] LAB - BLOOD ORD ERABLES Performing Organization [...] / Laterality Volume Blood specimen 02/07/2015 (specimen) [facility] LAB - BLOOD ORD ERABLES Performing Organization Address City/State/[facility] Code Phon e Number MISYS (ABNORMAL) Lipid Profile (02/07/2015) Patholo gist Method Time Signature Cholesterol 213 (A) 115 - 199 MISYS mg/dL Triglycerides 226 mg/dL MISYS HDL Cholesterol 57 mg/dL MISYS LDL Cholesterol 111 mg/dL MISYS Calculated Non HDL mg/dl MISYS Cholesterol Specimen (Source) Anatomical Location Collection Method / Collectio n Time Received Time / Laterality Volume Blood specimen 02/07/2015 (specimen) [facility] LAB - BLOOD ORD ERABLES Performing Organization Address City/State/[facility] Phon e Number MISYS documented in this encounter Visit Diagnoses Not on filedocumented in this encounter Care Teams Door To Door Fundraising Collector Relationship Specialty Start Date End Date Mckenzie Mayorga MD PCP - General 08/10/15 10/09/15 [facility] [address] [place] [address] Zen Rousseau MD MD Family Practice 07/31/[address] [place] [address] documented as of this encounter
--- OUTSIDE RECORDS SUMMARY | 2022-07-09 14:47 | XMS_ITS | Encounter Summary ---
:1940 Author Organization [place] Address [address] [facility] [place] [address] Care Team Providers Name Role Phone Zen Rousseau MD Unavailable Zen Rousseau MD Primary Care Provider Reason for Referral - Closed Specialty Diagnoses / Procedures Referred By Contact Refer red To Contact Diagnoses High cholesterol Essential hypertension Coronary artery disease involving north fork coronary artery of north fork heart without angina pectoris Past history of myocardial infarction Edna Jolley MD [address] [place] [address] Referral ID Status Reason Start Date Expiration Date Visits Requ ested Visits Authorized [id number] Closed 09/30/2015 03/28/2016 1 1 K MASON Reason for Visit Reason Comments Heart Problem CAD Encounter Details Date Type Department Care Team Description 09/30/2014 Office Visit [facility] Edna Jolley CAD (c oronary artery disease) (Primary Dx); [facility] MD Ismael Past history of myocardial infarction; [place] [address] High cholesterol; [address] Hypertension [address] [place] [phone] Social History Tobacco Use Types Packs/Day Years Used Date Smoking Tobacco: Former Tobacco Cessation: Counseling Given: No Comments: quit about 30 years ago Alcohol Use Standard Drinks/Week Comments No 0 (1 standard drink = 0.6 oz pure alcoho l) once in a while Sex Assigned at Date Recorded Not on file documented as of this encounter Last Filed Vital Signs Vital Sign Reading Time Taken Comments Blood Pressure 135/75 09/30/2014 3:42 PM right arm, la rge cuff BLOCK MASON Pulse 68 09/30/2014 3:42 PM regular BLOCK MASON Temperature - - Respiratory Rate - - Oxygen Saturation - - Inhaled Oxygen - - Concentration Weight 100.9 kg (222 lb 8 09/30/2014 3:42 PM oz) BLOCK MASON Height 167.6 cm (5' 6) 09/30/2014 3:42 PM BLOCK MASON Body Mass Index 35.91 09/30/2014 3:42 PM BLOCK MASON documented in this encounter Progress Notes Edna Jolley MD - 09/30/2014 4:35 PM CST September 30, 2014 Zen Rousseau MD [facility] [address] [place], [place] [id number] RE: Donaldo Bautista : [address] Rousseau: [facility] the [facility], [facility] and morbid obesity. Mr. Bautista is a delightful 74-year-old male accompanied by his today status post inferolateral wall myocardial infarction in 06/2010. He went on to have coronary angiography demonstrating high-grade stenosis of the second obtuse marginal branch artery, which was then stented using a drug- eluting stent. He had grtw-hd-hvyfihdh disease in his other vessels. He had [...] on pravastatin. Given the guidelines by the [employer] prevention panel in 06/2013, [...] disease without recurrent angina. His stress test [id number] did not indicate any ongoing ischemia. I [...] delightful patient. Best regards, Edna Jolley MD, [facility] EDNA JOLLEY MD, [facility] MT: PRISCILA Name: DONALDO BAUTISTA Account: [id number] : 1940 Service Date: 09/30/2014 Document: [id number] K MASON Edna Jolley MD - 09/30/2014 4:29 PM CST HPI and Plan: See dictation:[id number] Orders Placed This Encounter Procedures ??? Follow-Up with Distillation Operator Helper Orders Placed This Encounter Medications ??? pravastatin [...] gross motor deficits CC Zen Rousseau MD [facility] [address] [place] [address] K MASON documented in this encounter Plan of Treatment Scheduled Referrals Name Type Priority Associated Diagnoses Order S chedule Follow-Up with Referral Routine High cholesterol Expected: 09/30/2015 Distillation Operator Helper Hypertension (Approximate), CAD (coronary artery Expires : 02/12/2016 disease) Past history of myocardial infarction documented as of this encounter Visit Diagnoses Diagnosis CAD (coronary artery disease) - Primary Coronary atherosclerosis of unspecified type of vessel, north fork or graft Past history of myocardial infarction Old myocardial infarction High cholesterol Pure hypercholesterolemia Hypertension Unspecified essential hypertension documented in this encounter Care Teams Sequencing Machine Operator Relationship Specialty Start Date End Date Zen Rousseau MD PCP - General Family Practice 08/01/12 08/09/[address] [place] [address] Zen Rousseau MD MD Family Practice 07/31/12 [facility] [address] [facility] [place] [place] [address] documented as of this encounter
--- OUTSIDE RECORDS SUMMARY | 2022-07-09 14:47 | XMS_ITS | Encounter Summary ---
:1940 Author Organization [place] Address [facility] [place] [address] Care Team Providers Name Role Phone Zen Rousseau MD Unavailable Luis Alberto Hernandez MD Primary Care Provider Unavailable Reason for Visit Reason Onset Date Comments Refill Request 11/02/2015 Losartan 90 day rx Encounter Details Date Type Department Care Team Description 11/02/2015 Refill [facility] Heart Abhijit Castañeda, Refill Request (Losartan [facility] [place] [facility] 90 day rx) [address] [place] [address] [place] [phone] [address] (Wo rk) Social History Tobacco Use [...] hypertension documented in this encounter Care Teams Junior Technical Writer Relationship Specialty Start Date End Date Luis Alberto Hernandez MD PCP - General Family Practice 10/10/15 07/25/16 Zen Rousseau MD MD Family Practice 07/31/[address] [place] [address] documented as of this encounter
--- OUTSIDE RECORDS SUMMARY | 2022-07-09 14:47 | XMS_ITS | Encounter Summary ---
:1940 Author Organization [place] Address [facility] [place] [address] Care Team Providers Name Role Phone Elizabeth Rousseau MD Unavailable Elizabeth Rousseau MD Primary Care Provider Mckenzie Mayorga MD Primary Care Provider Luis Alberto Hernandez MD Primary Care Provider Unavailable Mckenzie Mayorga MD Primary Care Provider Senthil Mckeon MD Primary Care Provider [phone] Ta Trimble MD Unavailable [phone] Ronnie Myers Primary Care Provider Mali Dowd APRN, CNP Unavailable Encounter Details Date Type Department Care Team Description 10/16/2013 Office Visit-[facility] Heart IpCraig, Clinic [place] [facility] [address] [facility] [address] [facility] [address] [place] [address] [place] [address] (Wo rk) Social History [...] old Referring Physician: ELIZABETH ROUSSEAU Referring Clinic: [facility] CURRENT DIAGNOSES 1. - Shortness of Breath, 786.05 2. - Chest Pain-unspecified, 786.50 3. - Hyperlipidemia, 272.4 4. Obesity-(<LT>100'), 278.00 5. - Hypertension, 401.1 6. NC-S/P Inferior, 412 7. CAD, 414.00 ALLERGIES Penicillin, [...] #0 (Zero) Dosage Decreased, Nitrocellulose Aerosol and [place] 1 p.o. PRN as Directed #0 Substitution [...] on filedocumented in this encounter Care Teams Health Physics Technician Relationship Specialty Start Date End Date Elizabeth Rousseau MD PCP - General Family Practice 08/01/12 08/09/[address] [address] Mckenzie Mayorga MD PCP - General 08/10/15 10/09/15 [facility] [address], [place] [address] Luis Alberto Hernandez MD PCP - General Family Practice 10/10/15 07/25/16 Mckenzie Mayorga MD PCP - General 07/26/16 12/02/18 [facility] [address], [place] [phone] Senthil Mckeon PCP - General 12/03/18 Ronnie Myers PCP - General Family Medicine 09/11/21 [facility] [address], [place] [address] Elizabeth Rousseau MD MD Family Practice 07/31/[address] [phone] Ta Trimble Assigned Heart and 05/27/20 2 MD [facility] Provider [address] [place] [address] Mali Dowd, BUDGET RECORD CLERK BUCCARO Assigned Heart and 10/08/21 [address] Vascular Provider [place] [address] documented as of this encounter
--- OUTSIDE RECORDS SUMMARY | 2022-07-09 14:47 | XMS_ITS | Encounter Summary ---
:1940 Author Organization [place] Address [address] [facility] [place] [address] Care Team Providers Name Role Phone Zen Rousseau MD Unavailable Zen Rousseau MD Primary Care Provider Mckenzie Mayorga MD Primary Care Provider Luis Alberto Hernandez MD Primary Care Provider Unavailable Encounter Details Date Type Department Care Team Description 08/01/2012 Historic Results [facility] Heart Unknown, [address] [place] [address] Social History Tobacco Use Types Packs/Day Years Used Date Smoking Tobacco: Never Assessed Sex Assigned at Date Recorded Not on file documented as of this encounter Plan of Treatment Not on filedocumented as of this encounter Procedures Procedure Name Priority Date/Time Associated Diagnosis Comme nts NUCLEAR CARDIAC - HIM 08/01/2012 12:00 AM ANIMAL FEEDER SCAN - ARCHIVE documented in this encounter Results NUCLEAR CARDIAC - HIM SCAN - ARCHIVE (08/01/2012 12:00 AM ANIMAL FEEDER) Anatomical Region Laterality Modality Other Specimen (Source) Anatomical Location Collection Method / Collectio n Time Received Time / Laterality Volume 08/01/2012 Narrative This result has an attachment that is no t available. Provider Scan IMG NM ORDERABLES documented in this encounter Visit Diagnoses Not on filedocumented in this encounter Care Teams Well Service Floor Worker Relationship Specialty Start Date End Date Zen Rousseau MD PCP - General Family Practice 08/01/12 08/09/15 [facility] [address] [place] [address] Mckenzie Mayorga MD PCP - General 08/10/15 10/09/15 [facility] [address], [place] [address] Luis Alberto Hernandez MD PCP - General Family Practice 10/10/15 07/25/16 Zen Rousseau MD MD Family Practice 07/31/12 [facility] [address] [place] [address] documented as of this encounter
--- OUTSIDE RECORDS SUMMARY | 2022-07-09 14:47 | XMS_ITS | Encounter Summary ---
:1940 Author Organization [place] Address [address] [facility] [place] [address] Care Team Providers Name Role Phone Zen Rousseau MD Unavailable Zen Rousseau MD Primary Care Provider Encounter Details Date Type Department Care Team Description 08/01/2012 Results Only [facility] Ip, Fatoumata an Chon Castro MD Hospital Results [address] [place] [phone] (Wo rk) Social History Tobacco Use Types Packs/Day Years Used Date Smoking Tobacco: Never Assessed Sex Assigned at Date Recorded Not on file documented as of this encounter Plan of Treatment Not on filedocumented as of this encounter Procedures Procedure Name Priority Date/Time Associated Diagnosis Comme nts NM MPI TREADMILL 08/01/2012 3:48 PM Resul ts for this LABOR ARBITRATOR HEARING OFFICE procedure are i n the results section. documented in this encounter Results NM Mpi multi rest stress (08/01/2012 3:48 PM LABOR ARBITRATOR HEARING OFFICE) Anatomical Region Laterality Modality Chest Other Specimen (Source) Anatomical Collection Method Collection Time Re ceived Time Location / / Volume Laterality 08/01/2012 3:48 PM LABOR ARBITRATOR HEARING OFFICE Narrative 08/04/2012 8:29 AM LABOR ARBITRATOR HEARING OFFICE GATED MYOCARDIAL PERFUSION SCINTIGRAPHY WITH LEXISCAN Done [...] 4. (Compared to the previous study of 20 11, the study shows a small reversible lateral [...] on filedocumented in this encounter Care Teams Merchandiser Relationship Specialty Start Date End Date Zen Rousseau MD PCP - General [facility] Practice 08/01/12 08/09/15 [facility] [address] [place] [address] Zen Rousseau MD MD [facility] Practice 07/31/12 [facility] [address] [place] [address] documented as of this encounter
--- OUTSIDE RECORDS SUMMARY | 2022-07-09 14:47 | XMS_ITS | Encounter Summary ---
:1940 Author Organization [place] Address [address] [facility] [place] [address] Care Team Providers Name Role Phone Zen Rousseau MD Unavailable Zen Rousseau MD Primary Care Provider Encounter Details Date Type Department Care Team Description 08/01/2012 Results Only [facility] Ip, Fatoumata an Chon Castro MD Hospital Results [address] [place], [place] [phone] (Wo rk) Social History Tobacco Use Types Packs/Day Years Used Date Smoking Tobacco: Never Assessed Sex Assigned at Date Recorded Not on file documented as of this encounter Plan of Treatment Not on filedocumented as of this encounter Procedures Procedure Name Priority Date/Time Associated Diagnosis Comme nts ZZ STRESS THALLIUM 08/01/2012 2:45 PM Res ults for this TEST STENOGRAPHER SECRETARY procedure are i n the results section. documented in this encounter Results Stress thallium test (08/01/2012 2:45 PM STENOGRAPHER SECRETARY) Specimen (Source) Anatomical Collection Method Collection Time Re ceived Time Location / / Volume Laterality 08/01/2012 2:45 PM STENOGRAPHER SECRETARY Narrative RADIOLOGY RESULTS - 08/09/2012 9:19 PM [...] stress test to be reported se christopher. ?? Dr. Zen Rousseau Procedure Note Jimenez Vincent MD - 08/09/2012Form atting of this note might be different from the original. DONALDO BAUTISTA EXERCISE ECG PORTION OF AN [facility] INDICATION FOR STUDY: Chest pain. Initia l [...] on filedocumented in this encounter Care Teams Marine Firefighter Relationship Specialty Start Date End Date Zen Rousseau MD PCP - General Family Practice 08/01/12 08/09/[address] [address] Zen Rousseau MD MD Family Practice 07/31/12 [facility] [address] [place] [address] documented as of this encounter
--- OUTSIDE RECORDS SUMMARY | 2022-07-09 14:47 | XMS_ITS | Encounter Summary ---
:1940 Author Organization [place] Address [facility] [place] [address] Care Team Providers Name Role Phone Zen Rousseau MD Unavailable Zen Rousseau MD Primary Care Provider Reason for Visit Reason Onset Date Comments Previsit 09/27/2014 09/30/14 OV w/Dr Elia dacosta ([facility]) Encounter Details Date Type Department Care Team Description 09/27/2014 PRE VISIT [facility] Abhijit Castañeda Previsit (09/30/14 Clinic [place] Gue[facility]a MD w/Dr Castañeda ([facility]) [address] [place] [address] [place] [phone] [address] Social History Tobacco Use Types Packs/Day Years Used Date Smoking Tobacco: Never Assessed Sex Assigned at Date Recorded Not on file documented as of this encounter Plan of Treatment Not on filedocumented as of this encounter Visit Diagnoses Diagnosis CAD (coronary artery disease) - Primary Coronary atherosclerosis of unspecified type of vessel, [place] or graft Past history of myocardial infarction Old myocardial infarction documented in this encounter Care Teams Guide Rail Cleaner Relationship Specialty Start Date End Date Zen Rousseau MD PCP - General Family Practice 08/01/12 08/09/[address] [place] [address] Zen Rousseau MD MD Family Practice 07/31/[address] [address] documented as of this encounter
--- OUTSIDE RECORDS SUMMARY | 2022-07-09 14:47 | XMS_ITS | Encounter Summary ---
:1940 Author Organization [place] Address [facility] [place] [address] Care Team Providers Name Role Phone Zen Rousseau MD Unavailable Zen Rousseau MD Primary Care Provider Reason for Visit Auth/Cert - Closed Specialty Diagnoses / Procedures Referred By Contact Refer red To Contact Surgery Diagnoses Rotator cuff tear right shoulder Rh Periop Services Procedures PROCEDURE [facility]ACEHOLDER [facility]TH[facility] [address] [place], [place] [address] Phone: Fax: Referral ID Status Reason Start Date Expiration Date Visits Requ ested Visits Authorized [id number] Closed 1 1 Encounter Details Date Type Department Care Team Description 10/18/[address] [facility] Matthew De La Rosa MD [facility] ANESTHESIA [address] [place], [place] [address] [facility] PeriOp Servic es Frank Killian APRN CRNA S [facility] [address] [place] [address] [address] [place] [address] Anesthesia Record Procedure Summary Procedure Name Responsible Anesthesia Start Anesthesia Stop Anesthesiologist Time Time 1. Right shoulder Matthew De La Rosa MD 10/18/14 1130 10/18 1307 glenohumeral arthroscopy with extensive debridement and biceps tenotomy. 2. Arthroscopic subacromial bursectomy and rotator cuff debridement. 3. Debridement and partial resection of right shoulder os acromiale. 4. Right shoulder arthroscopic acromioclavicular joint resection. (Right: Shoulder) Events Date Time Event Comment 10/18/2014 [...] 1301; 10/18/14 1301 by Right; Shoulder Patric Toussaint, YEN Peripheral IV 10/18/14; 1047; 22 G, 10/18/14 1047 by 10/18/14 1157 by 1 1/4 inch; Left, Patric Malcolm Paul Anterior; MD Jacques Montaño APRN COUPLES THERAPIST forearm; Alcohol; Injectable; Tolerated well RETIRED ETT [...] A, RN Hand; Alcohol; None; JERMAINE Hanna CRNA Tolerated well documented in this encounter Social [...] Diagnosis: * No post-op diagnosis entered * [facility] Brief Operative Note Pre-operative diagnosis: Right [...] 143/80 Temp: 97.3 ??F (36.3 ??C) Resp: 23 14 15 SpO2: 92% 90% 93% Additional Comments: Anesthesia Preprocedure Evaluation - Patric Malcolm MD - 10/18/2014 11:05 AM CDT Anesthesia Evaluation . Pt has had prior anesthetic. Type: General No history of anesthetic complications ROS/MED HX ENT/Pulmonary: - neg pulmonary ROS Neurologic: - neg neurologic ROS Cardiovascular: (+) hypertension CAD, past VA,stent,. : . . . :. . METS/Exercise [...] benefits and alternatives discussed with: patient or outside sales representative. History & Physical Review History and [...] Care Transfer Note - Frank Killian APRN COUPLES THERAPIST - 10/18/2014 1:07 PM CDT Anesthesia Care [...] Results Peripheral/Paravetebral Block (10/18/2014 11:05 AM CDT) Patric Bhatt MD - 5 11:05 AM CDT Patric [...] 1:200,000 e pinephrine placed. Patric Malcolm MD [place] ANESTHESIA documented in this encounter Visit Diagnoses Not on filedocumented in this encounter Administered Medications Inactive Administered Medications - up to 3 most recent administrations Medication Order MAR Action Action Date Dose Rate Site Bupivacaine-Epinephrine Given 10/18/2014 11:04 AM CDT 30 mLs 0.25-1:273641 % SOLN PRN, Starting on Sat10/18/14 at [...] mg documented in this encounter Care Teams Insulator Technician Relationship Specialty Start Date End Date Zen Rousseau MD PCP - General Family Practice 08/01/12 08/09/15 [facility] [address] [place] [address] Zen Rousseau MD MD Family Practice 07/31/12 [facility] [address] [place] [address] documented as of this encounter
--- OUTSIDE RECORDS SUMMARY | 2022-07-09 14:47 | XMS_ITS | Encounter Summary ---
:1940 Author Organization [place] Address [facility] [place] [address] Care Team Providers Name Role Phone Zen Rousseau MD Unavailable Zen Rousseau MD Primary Care Provider Reason for Visit (Routine) - Closed Specialty Diagnoses / Procedures Referred By Contact Refer red To Contact Radiology / Radiology. Diagnoses non EPIC, mr safe, no contrast, no special needs, ok per [facility] Mri [place] [address] [facility] [address] [place] [address] Phone: Fax: Referral ID Status Reason Start Date Expiration Date Visits Requ ested Visits Authorized [id number] Closed 05/24/2014 05/24/2015 1 1 Encounter Details Date Type Department Care Team Description 05/24/2014 Hospital Encounter [facility] Shamar Butterfield Sp inal stenosis; [facility] MD Alex Weakness [address] [facility] [address] ORTHOPED[place], [place] [address] [address] [address] [place] [address] Social History Tobacco Use Types [...] L3 and L4 foraminal st enosis. GERONIMO RNIG MD Shamar Butterfield MD IMG MRI ORDERABLES documented in this encounter Visit Diagnoses Diagnosis Spinal stenosis Spinal stenosis, unspecified region othe r than cervical Weakness Other malaise and fatigue documented in this encounter Care Teams Track Oiler Relationship Specialty Start Date End Date Zen Rousseau MD PCP - General Family Practice 08/01/12 08/09/[address] [address] Zen Rousseau MD MD Family Practice 07/31/12 [facility] [address] [place] [address] documented as of this encounter
--- OUTSIDE RECORDS SUMMARY | 2022-07-09 14:47 | XMS_ITS | Encounter Summary ---
:1940 Author Organization [place] Address [address] [facility] [place] [address] Care Team Providers Name Role Phone Zen Rousseau MD Unavailable Zen Rousseau MD Primary Care Provider Reason for Visit (Routine) - Closed Specialty Diagnoses / Procedures Referred By Contact Refer red To Contact Radiology / Radiology. Diagnoses sb; Non Epic. Walk in 10/03/13 in the afternoon. Rh Xr ay Procedures XR CHEST 2 VIEWS [address] [place] [address] Phone: Fax: Referral ID Status Reason Start Date Expiration Date Visits Requ ested Visits Authorized [id number] Closed 10/02/2013 10/02/2014 1 1 Encounter Details Date Type Department Care Team Description 10/03/2013 Hospital Encounter [facility] Zen Rousseau MD [address] [place], [place] [address] [facility] [address] [place], [place] [phone] [address] Social History Tobacco Use Types Packs/Day Years Used Date Smoking Tobacco: Never Assessed Sex Assigned at Date Recorded Not on file documented as of this encounter Progress Notes Roxana Byers-Provider - 10/05/2013 1:53 PM CST URCES REPRESENTATIVE documented in this encounter Plan of Treatment Not on filedocumented as of this encounter Procedures Procedure Name Priority Date/Time Associated Diagnosis Comme nts XR CHEST 2 VIEWS Routine 10/03/2013 11:49 AM Persistent cough Results for this RESOURCES REPRESENTATIVE procedure are i n the results section. documented in this encounter Results XR Chest 2 Views (10/03/2013 11:49 AM RESOURCES REPRESENTATIVE) Anatomical Region Laterality Modality Chest Computed Radiography Specimen (Source) Anatomical Location Collection Method / Collectio n Time Received Time / Laterality Volume Impressions 10/03/2013 2:58 PM RESOURCES REPRESENTATIVE IMPRESSION: Clear lungs. ? CATRACHITA UREÑA MD Narrative 10/03/2013 2:58 PM RESOURCES REPRESENTATIVE CHEST TWO VIEWS ??10/03/2013 11:49 AM COMPARISON: [...] Cough documented in this encounter Care Teams Smasher Relationship Specialty Start Date End Date Zen Rousseau MD PCP - General Family Practice 08/01/12 08/09/[address] [address] Zen Rousseau MD MD [facility] Practice 07/31/[address] [phone] documented as of this encounter
--- OUTSIDE RECORDS SUMMARY | 2022-07-09 14:47 | XMS_ITS | Encounter Summary ---
:1940 Author Organization [place] Address [facility] [place] [address] Care Team Providers Name Role Phone Zen Rousseau MD Unavailable Zen Rousseau MD Primary Care Provider Reason for Visit Auth/Cert - Closed Specialty Diagnoses / Procedures Referred By Contact Refer red To Contact Surgery Diagnoses Rotator cuff tear right shoulder Rh Periop Services Procedures PROCEDURE PLACEHOLDER ORTHO [address] [place], [place] [address] Phone: Fax: Referral ID Status Reason Start Date Expiration Date Visits Requ ested Visits Authorized [id number] Closed 1 1 Encounter Details Date Type Department Care Team Description 10/18/2014 Hospital Encounter [facility] [place] Pre[facility]/PostOP MD Alex (Primary Dx) [address] [place], [place] ORTHOPEDICS [address] [phone] [address] [place] [address] Social History Tobacco Use Types [...] DR. JUICE BUTTERFIELD M.D[facility] CLINIC PHONE NUMBER: [phone] documented in this encounter Medications at Time [...] acromioclavicular joint resection. SURGEON: Juice Butterfield MD PERSON INVESTIGATOR: Zaira Vasquez PA-C ANESTHESIA: General. ESTIMATED BLOOD [...] PP Name: DONALDO BAUTISTA MRN: [id number] Account: [id number] : 1940 Procedure Date: 10/18/2014 Document: [id number] Brief Op Note - Juice Butterfield MD - 10/18/2014 7:24 AM CDT [facility] Brief Operative Note Pre-operative diagnosis: Right [...] CARDIAC - HIM 10/06/2014 12:00 AM SCAN PSYCHIATRIC CLINICIAN documented in this encounter Results Potassium (10/18/2014 10:55 AM CDT) athologist Signature Potassium 4.4 3.4 - 5.3 [facility] mmol/L HOSPITAL Specimen Anatomical Collection Method Collection Time Receive d Time (Source) Location / / Volume Laterality Blood specimen 10/18/2014 10:55 5 (specimen) AM CDT 10:58 AM CDT Donaldo Arita DO LAB - BLOOD ORDERABLES Performing Organization Address City/[facility] Phon e Number [facility] [address] [place], [place] [address] [facility] [address] [place], [place] [address] Creatinine (10/18/2014 10:55 AM CDT) athologist Signature Creatinine 0.91 0.66 - 1.25 [place] mg/dL [facility] GFR Estimate 81 >60 [place] mL/min/1.7m [address] Comment: Non GFR Calc GFR Estimate If Black >90 >60 mL/min/1.7m2 [facility] GFR Calc HOSP ITAL Specimen Anatomical Collection Method Collection Time Receive d Time (Source) Location / / Volume Laterality Blood specimen 10/18/2014 10:55 5 (specimen) AM CDT 10:58 AM CDT Donaldo Arita DO LAB - BLOOD ORDERABLES Performing Organization Address City/[facility] Phon e Number [facility] [address] [place], [place] [address] [facility] [address] [place], [place] [address] Hemoglobin (10/18/2014 10:55 AM CDT) athologist Signature Hemoglobin 13.3 13.3 - 17.7 [facility] g/dL [facility] Specimen Anatomical Collection Method Collection Time Receive d Time (Source) Location / / Volume Laterality Blood specimen 10/18/2014 10:55 5 (specimen) AM CDT 10:58 AM CDT Donaldo Arita DO LAB - BLOOD ORDERABLES Performing Organization Address City/[facility] Phon e Number M [facility] [address] [place], [place] [address] [facility] [address] [place], [place] [address] Glucose by meter (10/18/2014 10:16 AM CDT) athologist Signature Glucose 99 60 - 99 POINT OF CARE mg/dL TEST, GLUCOSE Specimen Anatomical Collection Method Collection Time Receive d Time (Source) Location / / Volume Laterality 10/18/2014 10:16 10/18/2014 AM CDT 10:20 AM CDT Juice Butterfield MD LAB - BEAKER POCT Performing Organization Address City/[facility] Phon e Number FV POINT OF CARE TEST, GLUCOSE POINT OF CARE TEST, GLUCOSE EKG CARDIAC - HIM SCAN (10/06/2014 12:00 AM PSYCHIATRIC CLINICIAN) Specimen (Source) Anatomical Location Collection Method / [...] 1130 (Given - Provider: Frank Killian APRN HOTEL ENGINEER - Comment: after neg test dose) 2 [...] (New Bag - Provider: Frank Killian APRN HOTEL ENGINEER)1215 (New Bag - Provider: Frank Killian APRN HOTEL ENGINEER)1302 (Anesthesia Volume Adjustment - Provider: Frank Killian [...] Intra-procedure documented in this encounter Care Teams Sr. Merchandise Planner Relationship Specialty Start Date End Date Zen Rousseau MD PCP - General [facility] Practice 08/01/12 08/09/[address] [place] [address] Zen Rousseau MD MD [facility] Practice 07/31/[address] [address] documented as of this encounter
--- OUTSIDE RECORDS SUMMARY | 2022-07-09 14:47 | XMS_ITS | Encounter Summary ---
:1940 Author Organization [place] Address [facility]0 [facility] [place] [address] Care Team Providers Name Role Phone Elizabeth Rousseau MD Unavailable Elizabeth Rousseau MD Primary Care Provider Mckenzie Mayorga MD Primary Care Provider Luis Alberto Hernandez MD Primary Care Provider Unavailable Mceknzie Mayorga MD Primary Care Provider Senthil Mckeon MD Primary Care Provider [phone] Ta Trimble MD Unavailable [phone] Ronnie Myers Primary Care Provider Mali Dowd APRN, CNP Unavailable Encounter Details Date Type Department Care Team Description 08/13/2013 Office [facility] [place] [facility] [address] [facility] [address] [facility] [address] [place] [address] [place] [address] (Wo rk) Social History [...] old Referring Physician: ELIZABETH ROUSSEAU Referring Clinic: [facility] CURRENT DIAGNOSES 1. - Shortness of Breath, 786.05 2. - Chest Pain-unspecified, 786.50 3. - Hyperlipidemia, 272.4 4. Obesity-(<LT>100'), 278.00 5. - Hypertension, 401.1 6. DE-S/P Inferior, 412 7. CAD, 414.00 ALLERGIES Penicillin, [...] minutes prior to Niaspan. 5. Nitrocellulose Aerosol, [place], 1 p.o. PRN as Directed 6. Pravachol [...] on filedocumented in this encounter Care Teams Construction Plumber Relationship Specialty Start Date End Date Elizabeth Rousseau MD PCP - General Family Practice 08/01/12 08/09/15 [facility] [address] [place] [address] Mckenzie Mayorga MD PCP - General 08/10/15 10/09/15 [facility] [address] [place], [place] [phone] Luis Alberto Hernandez MD PCP - General Family Practice 10/10/15 07/25/16 Mckenzie Mayorga MD PCP - General 07/26/16 12/02/18 [facility] [address] [place] [address] Senthil Mckeon PCP - General 12/03/18 Ronnie Myers PCP - General Family Medicine 09/11/21 [facility] [address] [place] [address] Elizabeth Rousseau MD MD Family Practice 07/31/12 [facility] [address] [place] [phone] Ta Trimble Assigned Heart and 05/27/20 2 MD [facility] Vascular Provider [address] [place] [address] [id number] Mali Dowd, JERMAINE CHEFS Assigned Heart and 10/08/21 [address] Vascular Provider [place] [id number] documented as of this encounter
--- OUTSIDE RECORDS SUMMARY | 2022-07-09 14:47 | XMS_ITS | Encounter Summary ---
:1940 Author Organization [place] Address [address] [facility] [place] [address] Care Team Providers Name Role Phone Zen Rousseau MD Unavailable Mckenzie Mayorga MD Primary Care Provider Reason for Referral - Closed Specialty Diagnoses / Procedures Referred By Contact Refer red To Contact Diagnoses Coronary artery disease involving [place] coronary artery of [place] heart without angina pectoris Edna Castañeda MD [address] [place] [address] Referral ID Status Reason Start Date Expiration Date Visits Requ ested Visits Authorized [id number] Closed 11/30/2015 11/29/2016 1 1 O AND ORGAN REFINISHER Reason for Visit Reason Comments Heart Problem Annual follow up w/ Dr Collazo ser. - Closed Specialty Diagnoses / Procedures Referred By Contact Refer red To Contact Diagnoses High cholesterol Essential hypertension Coronary artery disease involving [place] coronary artery of [place] heart without angina pectoris Past history of myocardial infarction Edna Castañeda MD [address] [place] [address] Referral ID Status Reason Start Date Expiration Date Visits Requ ested Visits Authorized [id number] Closed 09/30/2015 03/28/2016 1 1 Encounter Details Date Type Department Care Team Description 10/04/2015 Office Visit [facility] Edna Castañeda ry artery disease involving [place] coronary artery of [place] heart without angina pectoris (Primary Dx); [facility] Clinic MD Ismael Past history of myocardial infarction; [place] [address] High cholesterol; [address] Essential hypertension; [address] [place], [place] [address] Social History Tobacco Use Types [...] 3:35 PM right arm, la rge cuff PIANO AND ORGAN REFINISHER Pulse 60 10/04/2015 3:35 PM regular PIANO AND ORGAN REFINISHER Temperature - - Respiratory Rate - - Oxygen Saturation - - Inhaled Oxygen - - Concentration Weight 97.1 kg (214 lb) 10/04/2015 3:35 PM PIANO AND ORGAN REFINISHER Height 167.6 cm (5' 6) 10/04/2015 3:35 PM PIANO AND ORGAN REFINISHER Body Mass Index 34.54 10/04/2015 3:35 PM PIANO AND ORGAN REFINISHER documented in this encounter Progress Notes Edna Castañeda MD - 10/04/2015 5:05 PM CST HISTORY OF PRESENT ILLNESS: I had the pleasure of seeing Mr. Donaldo Bautista at [facility] for evaluation of coronary artery disease, hyperlipidemia, [...] brother, age 70, has had a recent ND and stent. He denies recurrent angina pectoris. [...] was present throughout. MD EDNA Degroot MD, [facility] MT: VD Name: DONALDO BAUTISTA Account: [id number] : 1940 Service Date: 10/04/2015 Document: [id number] O AND ORGAN REFINISHER Edna Castañeda MD - 10/04/2015 4:57 PM CST HPI and Plan: See dictation:[id number] Orders Placed This Encounter Procedures ??? Lipid Profile ??? ALT ??? Basic metabolic panel ??? Follow-Up with Environmental Services Aide Orders Placed This Encounter Medications ??? MAGNESIUM [...] Diagnoses Name Primary? Coronary artery disease involving [place] coronary artery of [place] heart without angina pectoris ??? Past history [...] gross motor deficits [place] [address] O AND ORGAN REFINISHER documented in this encounter Plan of Treatment Scheduled Referrals Name Type Priority Associated Diagnoses Order S chedule Follow-Up with Referral Routine Coronary artery Expected: 11/30/2015 Environmental Services Aide disease involving (Approxima te), [place] coronary artery Expir es: 10/03/2016 of [place] heart without angina pectoris documented as of this encounter Results (ABNORMAL) Basic metabolic panel (12/08/2015 7:29 AM CDT) athologist Signature Sodium 141 133 - 144 [place] mmol/L [facility] Potassium 4.2 3.4 - 5.3 [place] mmol/L [facility] Chloride 105 94 - 109 [place] mmol/L [facility] Carbon Dioxide 32 20 - 32 [place] mmol/L [facility] Anion Gap 4 3 - 14 [place] mmol/L [facility] Glucose 111 (H) 70 - 99 [place] mg/dL [facility] Urea Nitrogen 18 7 - 30 [place] mg/dL [facility] Creatinine 0.91 0.66 - [facility] 1.25 mg/dL [facility] GFR Estimate 80 >60 [place] mL/min/1.7 [facility] m2 [facility] Comment: Non GFR Calc GFR Estimate If Black >90 >60 mL/min/1.7m2 F [facility] GFR Calc HOSP ITAL Calcium 9.0 8.5 - 10.1 mg/dL [facility] Specimen Anatomical Collection Method Collection Time Receive d Time (Source) Location / / Volume Laterality Blood specimen 12/08/2015 7:29 AM 016 7:30 (specimen) CDT AM CDT Edna Castañeda MD LAB - BLOOD ORDERABLES Performing Organization Address City/[facility]/ZIP [facility] Phon e [facility] [address] [place], [place] [address] [place] [address] [address] [address], [facility] [phone] ALT (12/08/2015 7:29 AM CDT) athologist Signature ALT 25 0 - 70 U/L [facility] Specimen Anatomical Collection Method Collection Time Receive d Time (Source) Location / / Volume Laterality Blood specimen 12/08/2015 7:29 AM 016 7:30 (specimen) CDT AM CDT Edna Castañeda MD LAB - BLOOD ORDERABLES Performing Organization Address City/[facility] e [facility] [address] [place], [place] [address] [place] [address] [address] [place], [place] [address], [facility] [phone] Lipid Profile (12/08/2015 7:29 AM CDT) P athologist Signature Cholesterol 166 <200 mg/dL [facility] Triglycerides 148 <150 mg/dL [facility] Comment: Fasting specimen HDL Cholesterol 55 >39 mg/dL [facility] LDL Cholesterol Calculated 81 <100 mg/dL [facility] Comment: Desirable: <100 mg/dl Non HDL Cholesterol 111 <130 mg/dL [facility] Specimen Anatomical Collection Method Collection Time Receive d Time (Source) Location / / Volume Laterality Blood specimen 12/08/2015 7:29 AM 016 7:30 (specimen) CDT AM CDT Edna Castañeda MD LAB - BLOOD ORDERABLES Performing Organization Address City/State/ZIP Code Phon e Number M [facility] [address] [place], [place] [address] [facility] [address] [place], [place] [address] 7[facility] [phone] documented in this encounter Visit Diagnoses Diagnosis Coronary artery disease involving [place] coronary artery of [place] heart without angina pectoris - Primary Past history of myocardial infarction Old myocardial infarction High cholesterol Pure hypercholesterolemia Essential hypertension Unspecified essential hypertension Aortic valve disorder Aortic valve disorders documented in this encounter Care Teams Extrusion Press Supervisor Relationship Specialty Start Date End Date Mckenzie Mayorga MD PCP - General 08/10/15 10/09/15 [facility] [address] [place] [address] Zen Rousseau MD MD Family Practice 07/31/[address] [address] documented as of this encounter
--- OUTSIDE RECORDS SUMMARY | 2022-07-09 14:47 | XMS_ITS | Encounter Summary ---
:1940 Author Organization [place] Address [address] [facility] [place] [address] Care Team Providers Name Role Phone Zen Rousseau MD Unavailable Zen Rousseau MD Primary Care Provider Mckenzie Mayorga MD Primary Care Provider Luis Alberto Hernandez MD Primary Care Provider Unavailable Encounter Details Date Type Department Care Team Description 08/01/2012 Historic Results [facility] Heart Unknown, [address] [place] [address] Social History Tobacco Use Types Packs/Day Years Used Date Smoking Tobacco: Never Assessed Sex Assigned at Date Recorded Not on file documented as of this encounter Plan of Treatment Not on filedocumented as of this encounter Procedures Procedure Name Priority Date/Time Associated Diagnosis Comme nts NUCLEAR CARDIAC - HIM 08/01/2012 12:00 AM PRIMARY TEACHING ASSISTANT SCAN - ARCHIVE documented in this encounter Results NUCLEAR CARDIAC - HIM SCAN - ARCHIVE (08/01/2012 12:00 AM PRIMARY TEACHING ASSISTANT) Anatomical Region Laterality Modality Other Specimen (Source) Anatomical Location Collection Method / Collectio n Time Received Time / Laterality Volume 08/01/2012 Narrative This result has an attachment that is no t available. Provider Scan IMG NM ORDERABLES documented in this encounter Visit Diagnoses Not on filedocumented in this encounter Care Teams Wildfire Prevention Specialist Relationship Specialty Start Date End Date Zen Rousseau MD PCP - General Family Practice 08/01/12 08/09/15 [facility] [address] [place] [phone] Mckenzie Mayorga MD PCP - General 08/10/15 10/09/15 [facility] [address], [place] [address] Luis Alberto Hernandez MD PCP - General Family Practice 10/10/15 07/25/16 Zen Rousseau MD MD Family Practice 07/31/12 [facility] [address] [place] [address] documented as of this encounter
--- OUTSIDE RECORDS SUMMARY | 2022-07-09 14:47 | XMS_ITS | Encounter Summary ---
:1940 Author Organization [place] Address [address] [facility] [place] [address] Care Team Providers Name Role Phone Zen Rousseau MD Unavailable Zen Rousseau MD Primary Care Provider Reason for Visit Auth/Cert - Closed Specialty Diagnoses / Procedures Referred By Contact Refer red To Contact Surgery Diagnoses Rotator cuff tear right shoulder Rh Periop Services Procedures PROCEDURE [facility]ACEHOLDER ORTHO [address] [place], [place] [address] Phone: Fax: Referral ID Status Reason Start Date Expiration Date Visits Requ ested Visits Authorized [id number] Closed 1 1 Encounter Details Date Type Department Care Team Description 10/18/2014 Surgery [facility] Juice Butterfield 1. Right shoulder [facility] MD Alex glenohumeral arthroscopy Services [facility] with extensive debridement [address] [facility] and biceps tenotomy. 2. [place], [place] [address] Arthroscop ic subacromial [address] [address] bursectomy and rotator cuff [phone] [place], [place] debridement. 3. Debridement [phone] and partial resection of [phone] right shoulder os (Work) acromiale. 4. Right shoulder arthroscopic acromioclavicul ar joint resection. Surgery Details Date/Time Status Location OR Service Patient Case Case Traum a Class Class Type Case? 10/18/14 11:20 Posted OR OR 02 Orthopedics Same Day AM Surgery Panel 1 [...] MD Primary Orthopedics 1 Zaira Vasquez PA-C Specialty Transformer Assembler Authorizat ion 1 Special Needs 222#, 5'4 [...] DR. JUICE BUTTERFIELD M.D[facility] CLINIC PHONE NUMBER: [phone] documented in this encounter Medications at Time [...] acromioclavicular joint resection. SURGEON: Juice Butterfield MD AUTO SERVICE WRITER: Zaira Vasquez PA-C ANESTHESIA: General. ESTIMATED BLOOD [...] PP Name: DONALDO BAUTISTA MRN: [id number] Account: [id number] : 1940 Procedure Date: 10/18/2014 Document: [id number] Brief Op Note - Juice Butterfield MD - 10/18/2014 7:24 AM CDT [facility] Brief Operative Note Pre-operative diagnosis: Right [...] CARDIAC - HIM 10/06/2014 12:00 AM SCAN POT RELINER documented in this encounter Results Potassium (10/18/2014 10:55 AM CDT) P athologist Signature Potassium 4.4 3.4 - 5.3 [facility] mmol/L HOSPITAL Specimen Anatomical Collection Method Collection Time Receive d Time (Source) Location / / Volume Laterality Blood specimen 10/18/2014 10:55 5 (specimen) AM CDT 10:58 AM CDT Donaldo Arita DO LAB - BLOOD ORDERABLES Performing Organization Address City/State/ZIP Code Phon e Number M [facility] [address] [place], [place] [address] [facility] [address] [place], [place] [address] Creatinine (10/18/2014 10:55 AM CDT) athologist Signature Creatinine 0.91 0.66 - 1.25 [place] mg/dL [facility] GFR Estimate 81 >60 [place] mL/min/1.7m [address] Comment: Non GFR Calc GFR Estimate If Black >90 >60 mL/min/1.7m2 F [facility] GFR Calc HOSP ITAL Specimen Anatomical Collection Method Collection Time Receive d Time (Source) Location / / Volume Laterality Blood specimen 10/18/2014 10:55 5 (specimen) AM CDT 10:58 AM CDT Donaldo Obinna Juan J DO LAB - BLOOD ORDERABLES Performing Organization Address City/[facility]/ZIP Code Phon e Number M [facility] [address] [place], [place] [address] [facility] [address] [place], [place] [address] 7 Hemoglobin (10/18/2014 10:55 AM CDT) athologist Signature Hemoglobin 13.3 13.3 - 17.7 [facility] g/dL [facility] Specimen Anatomical Collection Method Collection Time Receive d Time (Source) Location / / Volume Laterality Blood specimen 10/18/2014 10:55 5 (specimen) AM CDT 10:58 AM CDT Donaldo Arita DO LAB - BLOOD ORDERABLES Performing Organization Address City/State/ZIP Code Phon e Number M [facility] [address] [place], [place] [address] [facility] [address] [place], [place] [address] Glucose by meter (10/18/2014 [...] CARDIAC - HIM SCAN (10/06/2014 12:00 AM POT RELINER) Specimen (Source) Anatomical Location Collection Method / [...] 1130 (Given - Provider: Frank Killian APRN BALANCER - Comment: after neg test dose) 2 [...] (New Bag - Provider: Frank Killian APRN BALANCER)1215 (New Bag - Provider: Frank Killian APRN BALANCER)1302 (Anesthesia Volume Adjustment - Provider: Frank Killian [...] Intra-procedure documented in this encounter Care Teams Orthopaedic Nurse Relationship Specialty Start Date End Date Zen Rousseau MD PCP - General [facility] Practice 08/01/12 08/09/[address] [address] Zen Rousseau MD MD [facility] Practice 07/31/[address] [address] documented as of this encounter
--- OUTSIDE RECORDS SUMMARY | 2022-07-09 14:47 | XMS_ITS | Encounter Summary ---
:1940 Author Organization [place] Address [facility] [place] [address] Care Team Providers Name Role Phone Zen Rousseau MD Unavailable Zen Rousseau MD Primary Care Provider Reason for Visit Reason Comments Dizziness Encounter Details Date Type Department Care Team Description 05/24/2014 Emergency [facility] Vamsi Moyer UTI ( urinary tract infection) (Primary Dx); [facility] Emergency Dep briseyda Schwarz MD Hyponatremia; [address] [facility] EMERGENCY PHYSICIANS Malaise; [place], [place] Cough [phone] [address] [phone] [address] [place], [place] [address] (Wo rk) Social History Tobacco Use Types [...] down ?? Weakness, dizziness or fainting ?? [id number] [employer], [address] [place] [address], [place] [address]. All rights reserved. This information is not [...] Department Course ECG (19:13:09): Rate 110 bpm. TX interval 178. QRS duration 88. QT/QTc 330/446. [...] provider's statements to me. Lenora Fuller 05/24/2014 [facility] EMERGENCY DEPARTMENT Vamsi Moyer MD 05/25/14 1107 Cassi Rondon RN - 05/24/2014 7:05 PM CDT Pt [...] Component Value Ref Test Analysis Performed At [facility] [employer] Range Method Time Signature Specimen Midstream Urine [facility] LAB Special Specimen [facility] Requests received in [...] Organization Address City/State/ZIP Code Phon e Number [facility] [address] [place], [place] [id number] [place] [address] LAB [facility] MICROBIOLOGY (ABNORMAL) UA with Microscopic (05/24/2014 8:50 PM CDT) [employer] Method Time Signature Color Urine Yellow [facility] LAB Appearance Urine Clear [facility] Glucose Urine Negative NEG mg/dL [facility] Bilirubin Urine Negative NEG [facility] Ketones Urine 80 (A) NEG mg/dL [facility] Specific [place] 1.010 1.003 - [place] Urine 1.035 [facility] LAB Blood Urine Small (A) NEG [facility] LAB pH Urine 6.0 5.0 - 7.0 [place] pH [facility] Protein Albumin 10 (A) NEG mg/dL [place] Urine [facility] LAB Urobilinogen Normal 0.0 - 2.0 [place] mg/dL mg/dL [facility] Nitrite Urine Negative NEG [facility] Leukocyte Trace (A) NEG [place] Esterase Urine [facility] Source Midstream [facility] LAB WBC Urine 6 (H) 0 - 2 [facility] RBC Urine 4 (H) 0 - 2 [facility] LAB Mucous Urine Present (A) NEG /LPF [facility] LAB Specimen Anatomical Collection Method Collection Time Receive d Time (Source) Location / / Volume Laterality Urine specimen URINE SPECIMEN 05/24/2014 8:50 PM 05/24 9:02 (specimen) OBTAINED BY CLEAN CDT PM CDT CATCH PROCEDURE / Unknown Vamsi Moyer MD LAB - URINE ORDERABLES Performing Organization Address City/State/ZIP Code Phon e Number [facility] [address] [place], [place] [address] [facility] LAB XR Chest 2 Views (05/24/2014 8:23 [...] MYNOR Lactic acid (05/24/2014 7:43 PM CDT) athologist Signature Lactic Acid 0.9 0.4 - 2.0 [place] mmol/L [facility] LAB Specimen Anatomical Collection Method Collection Time Receive d Time (Source) Location / / Volume Laterality Blood specimen 05/24/2014 7:43 PM 014 8:02 (specimen) CDT PM CDT Vamsi Moyer MD LAB - BLOOD ORDERABLES Performing Organization Address City/State/ZIP Code Phon e Number [facility] [address], [place] [address] [facility] LAB Blood culture (05/24/2014 7:43 PM CDT) Component Value Ref Test Analysis [facility] Method Time Signature Specimen Right Arm [facility] LAB Special Aerobic and [facility] anaerobic [facility] LAB bottles received Culture Micro No growth [...] Organization Address City/State/ZIP Code Phon e Number [address] [address] [facility] LAB [facility] MICROBIOLOGY (ABNORMAL) Basic metabolic panel (05/24/2014 7:43 PM CDT) athologist Signature Sodium 129 (L) 133 - 144 [place] mmol/L [facility] LAB Potassium 4.0 3.4 - 5.3 [place] mmol/L [facility] LAB Chloride 95 94 - 109 [place] mmol/L [facility] LAB Carbon Dioxide 26 20 - 32 [place] mmol/L [facility] LAB Anion Gap 8 3 - 14 [place] mmol/L [facility] LAB Glucose 96 70 - 99 [place] mg/dL [facility] LAB Comment: Effective 03/03/2014, the reference range for this assay has changed to reflect new instrumentation/methodology. Urea Nitrogen 11 7 - 30 mg/dL [facility] LAB Comment: Effective 03/03/2014, the reference range for this assay has changed to reflect new instrumentation/methodology. Creatinine 1.03 0.66 - 1.25 mg/dL [facility] LAB GFR Estimate 70 >60 mL/min/1.7m2 [facility] LAB Comment: Non GFR Calc GFR Estimate If Black 85 >60 mL/min/1.7m2 F [facility] LAB Comment: GFR Calc Calcium 8.6 8.5 - 10.1 mg/dL [facility] LAB Comment: Effective 03/03/2014, the reference range for this assay has changed to reflect new instrumentation/methodology. Specimen Anatomical Collection Method Collection Time Receive d Time (Source) Location / / Volume Laterality Blood specimen 05/24/2014 7:43 PM 014 8:02 (specimen) CDT PM CDT Vamsi Moyer MD LAB - BLOOD ORDERABLES Performing Organization Address City/State/ZIP Code Phon e Number [place] [id number], [place] [address] [facility] LAB CBC with platelets differential (05/24/2014 7:43 PM CDT) [facility] gist Method Time Signature WBC 9.3 4.0 - [place] 11.0 [facility] 10e9/L [facility] LAB RBC Count 4.83 4.4 - 5.9 [place] 10e12/L [facility] LAB Hemoglobin 14.2 13.3 - [place] 17.7 g/dL [facility] LAB Hematocrit 42.9 40.0 - [place] 53.0 % [facility] LAB MCV 89 78 - 100 [facility] LAB MCH 29.4 26.5 - [place] 33.0 pg [facility] LAB MCHC 33.1 31.5 - [place] 36.5 g/dL [facility] LAB RDW 13.8 10.0 - [place] 15.0 % [facility] LAB Platelet Count 155 150 - 450 [place] 10e9/L [facility] LAB Diff Method Automated [facility] LAB % Neutrophils 72.3 % [facility] LAB % Lymphocytes 20.1 % [facility] LAB % Monocytes 6.1 % [facility] LAB % Eosinophils 0.5 % [facility] % Basophils 0.2 % [facility] LAB % Immature 0.8 % [place] Granulocytes [facility] LAB Absolute 6.7 1.6 - 8.3 [place] Neutrophil 10e9/L [facility] Absolute 1.9 0.8 - 5.3 [place] Lymphocytes 10e9/L [facility] Absolute 0.6 0.0 - 1.3 [place] Monocytes 10e9/L [facility] Absolute 0.1 0.0 - 0.7 [place] Eosinophils 10e9/L [facility] Absolute 0.0 0.0 - 0.2 [place] Basophils 10e9/[facility] Abs Immature 0.1 0 - 0.[address] [place] Granulocytes [address] [place] [address] LAB Specimen Anatomical Collection Method Collection Time Receive d Time (Source) Location / / Volume Laterality Blood specimen 05/24/2014 7:43 PM 014 8:02 (specimen) CDT PM CDT Vamsi Moyer MD LAB - BLOOD ORDERABLES Performing Organization Address City/State/ZIP Code Phon e Number [place] [phone] [facility] LAB EKG 12 lead (05/24/2014 7:13 PM CDT) [facility] gist Method Time Signature Interpretation ECG Click View RADIOLOGY Image link RESULTS to view waveform and result Specimen (Source) Anatomical Collection Method Collection Time Re ceived Time Location / / Volume Laterality 05/24/2014 7:13 PM CDT Vamsi Moyer MD ECG ORDERABLES Performing Organization Address City/State/ZIP [facility] Phon e Number RADIOLOGY RESULTS documented in [...] (COMPLETED) 2154 (New Bag - Provider: Tori Gibbs, RN)2215 (Stopped - Provider: Tori Gibbs, RN) STAT, 1 g, Intravenous, ONCE, On Sat at 2141, For 1 dose, Indications: Urinary Tract Infection ipratropium - albuterol 0.5 mg/2.5 mg/3 mL (DUONEB) nebulizer solution 6 mL (COMPLETED) 1936 (Given - Provid er: Albert Lyles, RT) 6 mL, Nebulization, ONCE, Sat05/24/14 at 1929, For 1 dose ketorolac (TORADOL) injection 15 mg (COMPLETED) 2031 (Given - Provider: Tori Gibbs, RN) 15 mg, Intravenous, ONCE, Sat05/24/14 at 1929, For 1 dose sodium chloride 0.9 % BOLUS 1,000 mL (COMPLETED) 1947 (New Bag - Provider: Tori Gibbs, RN)2215 (Stopped - Provider: Tori Gibbs, RN) Intravenous, 1,000 mL, ONCE, On Sat05/24/14 at 1929, For 1 dose documented in this encounter Care Teams Spray Maker Relationship Specialty Start Date End Date Zen Rousseau MD PCP - General Family Practice 08/01/12 08/09/15 [facility] [address] [place] [address] Zen Rousseau MD MD Family Practice 07/31/12 [facility] [address] [place] [address] documented as of this encounter
--- OUTSIDE RECORDS SUMMARY | 2022-07-09 14:48 | XMS_ITS | Encounter Summary ---
:1940 Author Organization [place] Address [address] [facility] [place] [address] Care Team Providers Name Role Phone Unavailable Primary Care Provider Unavailable Encounter Details Date Type Department Care Team Description 06/27/2010 Consultation [facility] Luis Alberto Dunbar MD Hospital Results [address] [facility] [address] [place], [place] [address] (Wo rk) Social History Tobacco Use Types Packs/Day Years Used Date Smoking Tobacco: Never Assessed Sex Assigned at Date Recorded Not on file documented as of this encounter Progress Notes Luis Alberto Dunbar - 08/16/2010 1:58 PM CONFERENCE CONCIERGE FINAL CARDIOLOGY CONSULTATION INDICATION: Non-Q wave myocardial [...] He presented to the emergency room at [facility]. He was started on nitroglycerin, and his pain resolved. His ECG was unremarkable, and his first troponin was negative. He was comfortable here int hospital through the morning. Later this morning, [...] creatinine0.7. ASSESSMENT/RECOMMENDATIONS: A gentleman with onset of [id number] coronary artery disease, jodi non-Q wave myocardial [...] LUIS ALBERTO DUNBAR MD MT: [id number] Name: DONALDO MCCANN MRN: [id number] Account: [id number] : 1940 Consult Date: 06/27/2010 Document: [id number] cc: Zen Rousseau MD ERENCE CONCIERGE documented in this encounter Plan of Treatment Not on filedocumented as of this encounter Visit Diagnoses Not on filedocumented in this encounter
--- OUTSIDE RECORDS SUMMARY | 2022-07-09 14:48 | XMS_ITS | Encounter Summary ---
:1940 Author Organization [place] Address [facility] [place] [address] Care Team Providers Name Role Phone Unavailable Primary Care Provider Unavailable Encounter Details Date Type Department Care Team Description 06/28/2010 Results Only [facility] Luis Alberto Dunbar MD Hospital Results [address] [facility] [address] [place], [place] [address] (Wo rk) Social History Tobacco Use Types Packs/Day Years Used Date Smoking Tobacco: Never Assessed Sex Assigned at Date Recorded Not on file documented as of this encounter Plan of Treatment Not on filedocumented as of this encounter Procedures Procedure Name Priority Date/Time Associated Diagnosis Comme nts HEART CATH LEFT Routine 06/28/2010 11:23 AM Resul ts for this HEART CATH AGENCY OPERATOR procedure are i n the results section. documented in this encounter Results Heart Cath Left heart cath (06/28/2010 11:23 AM AGENCY OPERATOR) Anatomical Region Laterality Modality Other Specimen (Source) Anatomical Collection Method Collection Time Re ceived Time Location / / Volume Laterality 06/28/2010 11:23 AM AGENCY OPERATOR Impressions 01/24/2012 2:41 PM CDT DONALDO MCCANN ?? PROCEDURES PERFORMED: 1. ??Coronary angiogram. 2. ??Left ventriculogram. ?? 3. ??Direct stenting to second obtuse ma rginal branch of the circumflex. ? CLINICAL SCENARIO/INDICATION: ??The anne ent presented to [facility] with chest pain and a si [...] marginal branch of the circumflex. ??A 6 English EBU 4.0 guide catheter was positioned into [...]
--- OUTSIDE RECORDS SUMMARY | 2022-07-09 14:48 | XMS_ITS | Encounter Summary ---
:1940 Author Organization [place] Address [facility] [place] [address] Care Team Providers Name Role Phone Unavailable Primary Care Provider Unavailable Encounter Details Date Type Department Care Team Description 03/04/2007 Results Only [facility] Shamar Butterfield, Hospital Results [facility] [address] [place] [address] (Wo rk) Social History Tobacco Use Types Packs/Day Years Used Date Smoking Tobacco: Never Assessed Sex Assigned at Date Recorded Not on file documented as of this encounter Plan of Treatment Not on filedocumented as of this encounter Procedures Procedure Name Priority Date/Time Associated Diagnosis Comme [facility] RT MRI JOINT Routine 03/04/2007 9:04 AM Resul ts for this UPPER EXTREMITY CDT procedure ar reese in the results section. documented in this encounter Results RT MRI JOINT UPPER EXTREMITY (03/04/2007 9:04 AM CDT) Anatomical Region Laterality Modality Other Specimen (Source) Anatomical Collection Method Collection Time Re ceived Time Location / / Volume Laterality 03/04/2007 9:04 AM CDT Impressions 03/04/2007 2:35 PM CDT MRI RIGHT UPPER EXTREMITY JOINT WITHOUT CONTRAST [...] tendinosis. Shamar Butterfield MD SPECIAL IMAGING STUDIES documented in this encounter Visit Diagnoses Not on filedocumented in this encounter
--- OUTSIDE RECORDS SUMMARY | 2022-07-09 14:48 | XMS_ITS | Encounter Summary ---
:1940 Author Organization [place] Address [facility] [place] [address] Care Team Providers Name Role Phone Zen Rousseau MD Unavailable Zen Rousseau MD Primary Care Provider Reason for Visit (Routine) - Closed Specialty Diagnoses / Procedures Referred By Contact Refer red To Contact Radiology Diagnoses NM MPI COMMERCIAL TITLE EXAMINER R/S Procedure Notes: Chest pain unspecified ON MEDS Rh Nuclear Medicine Procedures RADIOLOGY [address] [place], [place] [address] Phone: Fax: Referral ID Status Reason Start Date Expiration Date Visits Requ ested Visits Authorized [id number] Closed 07/31/2012 07/31/2013 1 1 Encounter Details Date Type Department Care Team Description 08/01/[address] [facility] Craig Godfrey, Imaging [address] [facility] [address] [place], [place] [address] [place] [address] [phone] (Wo rk) Social History Tobacco Use Types Packs/Day Years Used Date Smoking Tobacco: Never Assessed Sex Assigned at Date Recorded Not on file documented as of this encounter Progress Notes Ty Provider - 08/02/2012 12:22 AM CST RAISER documented in this encounter Plan of Treatment Not on filedocumented as of this encounter Visit Diagnoses Not on filedocumented in this encounter Care Teams In Mold Coater Relationship Specialty Start Date End Date Zen Rousseau MD PCP - General [facility] 08/01/12 08/09/15 [facility] [address] [place] [address] [place] [address] Zen Rousseau MD MD Family Practice 07/31/[address] [place] [address] documented as of this encounter
--- OUTSIDE RECORDS SUMMARY | 2022-07-09 14:48 | XMS_ITS | Encounter Summary ---
:1940 Author Organization [place] Address [facility]0 [facility] [place] [address] Care Team Providers Name Role Phone Zen Rousseau MD Unavailable Zen Rousseau MD Primary Care Provider Mckenzie Mayorga MD Primary Care Provider Luis Alberto Hernandez MD Primary Care Provider Unavailable Mckenzie Mayorga MD Primary Care Provider Senthil Mckeon MD Primary Care Provider [phone] Ta Trimble MD Unavailable [phone] Ronnie Myers Primary Care Provider Mali Dowd APRN, CNP Unavailable Encounter Details Date Type Department Care Team Description 08/07/2010 Office Visit-[facility] Heart Luis Alberto Dunbar MD [facility] [place] [facility] [address] [place] [address] [address] [place] [address] [place] [address] [phone] Social History Tobacco Use Types Packs/Day Years Used Date Smoking Tobacco: Never Assessed Sex Assigned at Date Recorded Not on file documented as of this encounter Progress Notes Luis Alberto Dunbar MD - 08/07/2010 1:54 PM CST Progress Note Created by: [place] [id number] DATE: 08/07/2010 DONALDO BAUTISTA DATE OF : 1940 AGE: [age] years old Referring Physician: GERONIMO BUSH Referring Clinic: [facility] CURRENT DIAGNOSES 1. NV-S/P Inferior, 412 2. - Hypertension, 401.1 3. Obesity-(<LT>100'), 278.00 4. - Hyperlipidemia, 272.4 5. - Shortness of Breath, 786.05 6. - Chest Pain-unspecified, 786.50 7. CAD, 414.00 ALLERGIES Penicillin, Itching and rash MEDICATIONS (prior to changes made today) 1. Advair Diskus 500-50 mcg/Dose Disk with Device 2. Pravachol 80 mg Tablet, 1 p.o. qHS 3. Nitrocellulose Aerosol, Ponce, 1 p.o. PRN as Directed 4. Aspirin [...] appreciated seeing Mr. Bautista today in the [facility] for the [facility]. 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 I have set him up for a [...] on filedocumented in this encounter Care Teams Gusset Maker Relationship Specialty Start Date End Date Zen Rousseau MD PCP - General Family Practice 08/01/12 08/09/[address] [address] Mckenzie Mayorga MD PCP - General 08/10/15 10/09/[address] [address] Luis Alberto Hernandez MD PCP - General Family Practice 10/10/15 07/25/16 Mckenzie Mayorga MD PCP - General 07/26/16 12/02/[address] [address] Senthil Mckeon, PCP - General 12/03/18 Ronnie Myers PCP - General Family Medicine 09/11/21 [facility] [address] [place] [address] Zen Rousseau MD MD Family Practice 07/31/12 [facility] [address] [place] [address] Ta Trimble Assigned Heart and 05/27/20 2 MD [facility] Provider [address] [place] [address] Mali Dowd APRN BULK FOLDER Assigned Heart and 10/08/21 [address] [place] [address] documented as of this encounter
--- OUTSIDE RECORDS SUMMARY | 2022-07-09 14:48 | XMS_ITS | Encounter Summary ---
:1940 Author Organization [place] Address [address] [place] [address]. [place] [address] Care Team Providers Name Role Phone Unavailable [...] 06/28/2010 5:03 AM Results f or this TECHNICAL OPERATIONS VICE PRESIDENT procedure are i n the results section . documented in this encounter Results EKG 12 LEAD (06/28/2010 5:03 AM TECHNICAL OPERATIONS VICE PRESIDENT) Component Value Ref Range Test Analysis Performed Pathologis t Method Time At Signature Ventricular Rate 58 BPM RADIOLOGY RESULTS Atrial Rate 58 BPM RADIOLOGY RESULTS GA Interval 154 ms RADIOLOGY RESULTS QRS Duration 90 ms RADIOLOGY RESULTS QT 418 ms RADIOLOGY RESULTS QTc 410 ms RADIOLOGY RESULTS P [place] 61 degrees RADIOLOGY RESULTS R AXIS 2 degrees RADIOLOGY RESULTS T [place] 23 degrees RADIOLOGY RESULTS Interpretation Sinus bradycardia [...] Volume Laterality 06/28/2010 5:03 AM 0 1:56 TECHNICAL OPERATIONS VICE PRESIDENT PM TECHNICAL OPERATIONS VICE PRESIDENT Transcripton Interface ECG ORDERABLES Performing Organization Address City/State/ZIP Code Phon e Number RADIOLOGY RESULTS documented in this encounter Visit Diagnoses Not on filedocumented in this encounter
--- OUTSIDE RECORDS SUMMARY | 2022-07-09 14:48 | XMS_ITS | Encounter Summary ---
:1940 Author Organization [place] Address [facility]0 [facility] [place] [address] Care Team Providers Name Role Phone Unavailable Primary Care Provider Unavailable Encounter Details Date Type Department Care Team Description 06/28/2010 Historic Results [facility] [place] [address] [place] [address] [address] [place] [address] [address] [place], [place] [address] (Wo rk) Social History Tobacco Use Types Packs/Day Years Used Date Smoking Tobacco: Never Assessed Sex Assigned at Date Recorded Not on file documented as of this encounter Plan of Treatment Not on filedocumented as of this encounter Procedures Procedure Name Priority Date/Time Associated Comments Diagnosis PARTIAL THROMBOPLASTIN STAT 06/28/2010 2:44 PM Results for this TIME FEEDER LOADER procedure are i n the results section. ACTIVATED CLOTTING TIME Routine 06/28/2010 10:16 Results for this POCT AM FEEDER LOADER procedure are i n the results section. INR AND PTT PANEL Timed 06/28/2010 5:20 AM Resu lts for this FEEDER LOADER procedure are i n the results section. TROPONIN I Timed 06/28/2010 5:20 AM Results f or this FEEDER LOADER procedure are i n the results section. LIPID PROFILE Routine 06/28/2010 5:20 AM Results for this FEEDER LOADER procedure are i n the results section. HEPARIN 10A LEVEL Routine 06/28/2010 5:20 AM Resu lts for this FEEDER LOADER procedure are i n the results section. BASIC METABOLIC PANEL Routine 06/28/2010 5:20 AM Results for this FEEDER LOADER procedure are i n the results section. CBC WITH PLATELETS Routine 06/28/2010 5:20 AM Res ults for this FEEDER LOADER procedure are i n the results section. documented in this encounter Results Partial thromboplastin time (06/28/2010 2:44 PM FEEDER LOADER) P athologist Signature PTT 33 22 - 37 sec MISYS Specimen Anatomical Collection Method Collection Time Receive d Time (Source) Location / / Volume Laterality 06/28/2010 2:44 PM 0 2:40 FEEDER LOADER PM FEEDER LOADER Luis Alberto Dunbar MD LAB - BLOOD ORDERABLES Performing Organization Address City/[facility] Code Phon e Number MISYS (ABNORMAL) Activated clotting time POCT (06/28/2010 10:16 AM FEEDER LOADER) athologist Signature Activated Clot 175 (H) 105 - 167 MISYS Time sec Specimen Anatomical Collection Method Collection Time Receive d Time (Source) Location / / Volume Laterality 06/28/2010 10:16 06/28/2010 AM FEEDER LOADER 10:50 AM FEEDER LOADER Rohit Maya MD LAB - ENTER/EDIT POCT Performing Organization Address [facility] Phon e Number MISYS (ABNORMAL) CBC with platelets (06/28/2010 5:20 AM FEEDER LOADER) Analysis Performed At Patho logist Time Signature [...] / Volume Laterality 06/28/2010 5:20 AM 0 FEEDER LOADER Naun Thompson MD LAB - BLOOD ORDERABLES Performing Organization Address City/State/ZIP Code Phon e Number MISYS (ABNORMAL) Basic metabolic panel (06/28/2010 5:20 AM FEEDER LOADER) P athologist Signature Sodium 137 133 - [...] / Volume Laterality 06/28/2010 5:20 AM 0 FEEDER LOADER Naun Thompson MD LAB - BLOOD ORDERABLES Performing Organization Address City/State/ZIP Code Phon e Number MISYS Heparin 10a Level (06/28/2010 5:20 AM FEEDER LOADER) P athologist Signature Heparin 10A 0.38 IU/mL [...] / Volume Laterality 06/28/2010 5:20 AM 0 FEEDER LOADER Naun Thompson MD LAB - BLOOD ORDERABLES Performing Organization Address City/State/ZIP Code Phon e Number MISYS (ABNORMAL) Troponin I (06/28/2010 5:20 AM FEEDER LOADER) Analysis Performed At Patho logist Time Signature Troponin I ES 27.000 0.000 - MISYS (HH) 0.034 ug/L Comment: Results confirmed by repeat test Critical Value called to and read back by [facility] @ [id number] ON [id number] BY [facility] Specimen Anatomical Collection Method Collection Time Receive d Time (Source) Location / / Volume Laterality 06/28/2010 5:20 AM 0 6:00 FEEDER LOADER AM FEEDER LOADER Rohit Maya MD LAB - BLOOD ORDERABLES Performing Organization Address City/[facility]/ZIP Code Phon e Number MISYS (ABNORMAL) INR AND PTT PANEL (06/28/2010 5:20 AM FEEDER LOADER) P athologist Signature INR 0.98 0.86 - 1.14 MISYS PTT 73 (H) 22 - 37 sec MISYS Specimen Anatomical Collection Method Collection Time Receive d Time (Source) Location / / Volume Laterality 06/28/2010 5:20 AM 0 6:00 FEEDER LOADER AM FEEDER LOADER Rohit Maya MD LAB - BLOOD ORDERABLES Performing Organization Address City/[facility] Code Phon e Number MISYS Lipid panel (06/28/2010 5:20 AM FEEDER LOADER) P athologist Signature Cholesterol 179 0 - [...] Volume Laterality 06/28/2010 5:20 AM 0 8:34 FEEDER LOADER AM FEEDER LOADER Naun Thompson MD LAB - BLOOD ORDERABLES Performing Organization Address City/State/ZIP Code Phon e Number MISYS documented in this encounter Visit Diagnoses Not on filedocumented in this encounter
--- OUTSIDE RECORDS SUMMARY | 2022-07-09 14:48 | XMS_ITS | Encounter Summary ---
:1940 Author Organization [place] Address [facility]0 [facility] [place] [address] Care Team Providers Name Role Phone Unavailable Primary Care Provider Unavailable Encounter Details Date Type Department Care Team Description 06/28/2010 Historic Notes INTERFACED REPORT Interface, Transcript onMD Social History Tobacco Use Types Packs/Day Years Used Date Smoking Tobacco: Never Assessed Sex Assigned at Date Recorded Not on file documented as of this encounter Progress Notes Interface, Injection Maintenance Technician - 10/20/2010 3:09 PM CDT NUTRITION NOTE Consulted for TLC oupt referal. Forms filled out and faxed. [Signature] Author: Kat Jackson (RD, LD) [Signed 14:42] documented in this encounter Plan of Treatment Not on filedocumented as of this encounter Visit Diagnoses Not on filedocumented in this encounter
--- OUTSIDE RECORDS SUMMARY | 2022-07-09 14:48 | XMS_ITS | Encounter Summary ---
:1940 Author Organization [place] Address [facility] [place] [address] Care Team Providers Name Role Phone Unavailable Primary Care Provider Unavailable Encounter Details Date Type Department Care Team Description 02/24/2007 GI Procedure [facility] Andjohnna, Patric Whelan, None Endoscopy Mackenzie MAXWELL [address] [facility] [place] [address] [facility] [address] [id number] [place] [address] [phone] Social History Tobacco Use Types Packs/Day Years [...] encounter Results COLONOSCOPY (02/24/2007 8:20 AM CDT) [facility] Method Time Signature COLONOSCOPY Endoscopy RADIOLOGY RESULTS [...] oxygen saturations were monitored ?cont inuously. The [facility]-[id number] was introduced through ?the anus and advanced [...] surveillance. ?- Return to primary care provider [place] N. ? R Jada Curry Abhijit Elias [...]
--- OUTSIDE RECORDS SUMMARY | 2022-07-09 14:48 | XMS_ITS | Encounter Summary ---
:1940 Author Organization [place] Address [address] [place] [address] Care Team Providers Name Role Phone Unavailable Primary Care Provider Unavailable Encounter Details Date Type Department Care Team Description 06/29/2010 Historic Notes INTERFACED REPORT Mango Montesinos, DO [address] [place], [place] [address] (Wo rk) Social History [...] 0.79, Hgb 13.7 Impression: 1. Non-q wave DC s/p stent to second obtuse marginal of [...]
--- OUTSIDE RECORDS SUMMARY | 2022-07-09 14:48 | XMS_ITS | Encounter Summary ---
:1940 Author Organization [place] Address [address] [place] [address]. [place] [address] Care Team Providers Name Role Phone Unavailable Primary Care Provider Unavailable Encounter Details Date Type Department Care Team Description 06/29/2010 Historic Results INTERFACED REPORT Interface, Transcnubia cramer MD Social History Tobacco Use Types Packs/Day Years Used Date Smoking Tobacco: Never Assessed Sex Assigned at Date Recorded Not on file documented as of this encounter Plan of Treatment Not on filedocumented as of this encounter Procedures Procedure Name Priority Date/Time Associated Diagnosis Comme nts EKG 12 LEAD Routine 06/29/2010 6:03 AM Results f or this WATER MECHANIC procedure are i n the results section . documented in this encounter Results EKG 12 LEAD (06/29/2010 6:03 AM WATER MECHANIC) Component Value Ref Range Test Analysis Performed Pathologis t Method Time At Signature Ventricular Rate 54 BPM RADIOLOGY RESULTS Atrial Rate 54 BPM RADIOLOGY RESULTS MA Interval 150 ms RADIOLOGY RESULTS QRS Duration 92 ms RADIOLOGY RESULTS QT 430 ms RADIOLOGY RESULTS QTc 407 ms RADIOLOGY RESULTS P [place] 66 degrees RADIOLOGY RESULTS R AXIS 12 degrees RADIOLOGY RESULTS T [place] 32 degrees RADIOLOGY RESULTS Interpretation Sinus bradycardia RADIOLO GY ECG Otherwise normal ECG RESULTS Unconfirmed report - interpretation of this ECG is compute r generated - see medical record for final interpretation Specimen Anatomical Collection Method Collection Time Receive d Time (Source) Location / / Volume Laterality 06/29/2010 6:03 AM 0 9:27 WATER MECHANIC AM WATER MECHANIC Transcripton Interface ECG ORDERABLES Performing Organization Address City/State/ZIP Code Phon e Number RADIOLOGY RESULTS documented in this encounter Visit Diagnoses Not on filedocumented in this encounter
--- OUTSIDE RECORDS SUMMARY | 2022-07-09 14:48 | XMS_ITS | Encounter Summary ---
:1940 Author Organization [place] Address [address] [facility] [place] [address] Care Team Providers Name Role Phone Zen Rousseau MD Unavailable Zen Rousseau MD Primary Care Provider Mckenzie Mayorga MD Primary Care Provider Luis Alberto Hernandez MD Primary Care Provider Unavailable Encounter Details Date Type Department Care Team Description 06/28/2010 Historic Results [facility] Heart Unknown, [address] [place] [address] Social History Tobacco Use Types Packs/Day Years Used Date Smoking Tobacco: Never Assessed Sex Assigned at Date Recorded Not on file documented as of this encounter Plan of Treatment Not on filedocumented as of this encounter Procedures Procedure Name Priority Date/Time Associated Diagnosis Comme nts CARDIAC CATH - HIM SCAN 06/28/2010 12:00 AM EVP AND CHIEF OPERATING OFFICER - ARCHIVE documented in this encounter Results CARDIAC CATH - HIM SCAN - ARCHIVE (06/28/2010 12:00 AM EVP AND CHIEF OPERATING OFFICER) Anatomical Region Laterality Modality Other Specimen (Source) Anatomical Location Collection Method / Collectio n Time Received Time / Laterality Volume 06/28/2010 Narrative This result has an attachment that is no t available. Provider Scan CV ELECTROPHYSIOLOGY ORDERAB LES documented in this encounter Visit Diagnoses Not on filedocumented in this encounter Care Teams Video Game Script Writer Relationship Specialty Start Date End Date Zen Rousseau MD PCP - General Family Practice 08/01/12 08/09/15 [facility] [address] [place] [id number] Mckenzie Mayorga MD PCP - General 08/10/15 10/09/15 [facility] [address], [place] [address] Luis Alberto Hernandez MD PCP - General Family Practice 10/10/15 07/25/16 Zen Rousseau MD MD Family Practice 07/31/12 [facility] [address] [place] [address] documented as of this encounter
--- OUTSIDE RECORDS SUMMARY | 2022-07-09 14:48 | XMS_ITS | Encounter Summary ---
:1940 Author Organization [place] Address [facility]0 [facility] [place] [address] Care Team Providers Name Role Phone Unavailable Primary Care Provider Unavailable Encounter Details Date Type Department Care Team Description 06/29/2010 Historic Results [place] [address] [place] [address] [address] [place] [address] [address] [place], [place] [address] (Wo rk) Social History Tobacco Use Types Packs/Day Years Used Date Smoking Tobacco: Never Assessed Sex Assigned at Date Recorded Not on file documented as of this encounter Plan of Treatment Not on filedocumented as of this encounter Procedures Procedure Name Priority Date/Time Associated Comments Diagnosis UREA NITROGEN (BUN) Routine 06/29/2010 7:40 AM Re sults for this SKEINS YARN EXAMINER procedure are i n the results section. POTASSIUM Routine 06/29/2010 7:40 AM Results f or this SKEINS YARN EXAMINER procedure are i n the results section. PLATELET COUNT Routine 06/29/2010 7:40 AM Results for this SKEINS YARN EXAMINER procedure are i n the results section. HEMOGLOBIN Routine 06/29/2010 7:40 AM Results f or this SKEINS YARN EXAMINER procedure are i n the results section. CREATININE Routine 06/29/2010 7:40 AM Results f or this SKEINS YARN EXAMINER procedure are i n the results section. HEPARIN 10A LEVEL Routine 06/29/2010 7:40 AM Resu lts for this SKEINS YARN EXAMINER procedure are i n the results section. documented in this encounter Results Platelet count (06/29/2010 7:40 AM SKEINS YARN EXAMINER) P athologist Signature Platelet Count 195 150 - 450 MISYS 10e9/L Specimen (Source) Anatomical Collection Method Collection Time Re ceived Time Location / / Volume Laterality 06/29/2010 7:40 AM 0 SKEINS YARN EXAMINER Luis Alberto Dunbar MD LAB - BLOOD ORDERABLES Performing Organization Address [facility] Phon e Number MISYS Heparin 10a Level (06/29/2010 7:40 AM SKEINS YARN EXAMINER) P athologist Signature Heparin 10A <0.10 IU/mL MISYS Level Comment: Therapeutic Range: ?? UFH: ?? 0.15-0.35 IU/mL for low ?intensity dosing ?0.30-0.70 IU/mL for high ?intensity dosing ?? LMWH: ??1.00-2.00 IU/mL if 4-6 h ?post daily dosing ?0.60-1.00 IU/mLif 4-6 h ?post twice a day fabiángretta g Specimen (Source) Anatomical Collection Method Collection Time Re ceived Time Location / / Volume Laterality 06/29/2010 7:40 AM 0 SKEINS YARN EXAMINER Naun Thompson MD LAB - BLOOD ORDERABLES Performing Organization Address [facility] Phon e Number MISYS Hemoglobin (06/29/2010 7:40 AM SKEINS YARN EXAMINER) P athologist Signature Hemoglobin 13.7 13.3 - 17.7 MISYS g/dL Specimen (Source) Anatomical Collection Method Collection Time Re ceived Time Location / / Volume Laterality 06/29/2010 7:40 AM 0 SKEINS YARN EXAMINER Luis Alberto Dunbar MD LAB - BLOOD ORDERABLES Performing Organization Address [facility] Code Phon e Number MISYS Potassium (06/29/2010 7:40 AM SKEINS YARN EXAMINER) P athologist Signature Potassium 4.6 3.4 - 5.3 MISYS mmol/L Specimen (Source) Anatomical Collection Method Collection Time Re ceived Time Location / / Volume Laterality 06/29/2010 7:40 AM 0 SKEINS YARN EXAMINER Luis Alberto Dunbar MD LAB - BLOOD ORDERABLES Performing Organization Address City/State/ZIP Code Phon e Number MISYS Urea nitrogen (06/29/2010 7:40 AM SKEINS YARN EXAMINER) P athologist Signature Urea Nitrogen 22 7 - 30 MISYS mg/dL Specimen (Source) Anatomical Collection Method Collection Time Re ceived Time Location / / Volume Laterality 06/29/2010 7:40 AM 0 SKEINS YARN EXAMINER Luis Alberto Dunbar MD LAB - BLOOD ORDERABLES Performing Organization Address City/[facility] Code Phon e Number MISYS Creatinine (06/29/2010 7:40 AM SKEINS YARN EXAMINER) P athologist Signature Creatinine 0.79 0.66 - 1.25 MISYS mg/dL Comment: New IDMS-traceable calibration beginning 12/04/07 GFR Estimate >90 >60 mL/min/1.7m2 MISYS GFR Estimate If Black >90 >60 mL/min/1.7m2 M ISYS Specimen (Source) Anatomical Collection Method Collection Time Re ceived Time Location / / Volume Laterality 06/29/2010 7:40 AM 0 SKEINS YARN EXAMINER Luis Alberto Dunbar MD LAB - BLOOD ORDERABLES Performing Organization Address City/State/ZIP Code Phon e Number MISYS documented in this encounter Visit Diagnoses Not on filedocumented in this encounter
--- OUTSIDE RECORDS SUMMARY | 2022-07-09 14:48 | XMS_ITS | Encounter Summary ---
:1940 Author Organization [place] Address [facility] [place] [address] Care Team Providers Name Role Phone Unavailable Primary Care Provider Unavailable Encounter Details Date Type Department Care Team Description 06/27/2010 Historic Notes INTERFACED REPORT Interface, Transcript onMD Social History Tobacco Use Types Packs/Day Years Used Date Smoking Tobacco: Never Assessed Sex Assigned at Date Recorded Not on file documented as of this encounter Progress Notes Interface, Nurse Behavioral Health Care - 10/20/2010 3:15 PM CDT General Information - How to be Addressed Erlin - Patient Belongings none - retail personal banker #1: Gail - Relationship to patient #1: - Phone 1: [phone] - Patient's spoken language; Mexican or Bilingual communication style Advance Directive - [...] abuse, self neglect, lack of adequate food, long-term, medical care, or financial exploitation)? Values/Beliefs/Spiritual Care [...] none Considerations - Developmental none Considerations - Jew none Considerations Mutuality/Individual Preferences - What information none would help us give you more personalized care? BRITTNEE Cuevas (RN)[Signed 10:22] Authored: General Information, Advance Directive, Health and Illness, Role Relationships/Living Environment, Substance Use, Review of Systems, Skin Inspection, Coping Stress/Abuse, Values/Beliefs/Spiritual Care, Learning Assessment, Mutuality/Individual Preferences Interface, Nurse Behavioral Health Care - 10/20/2010 3:14 PM CDT Patient Status - Diagnosis/Procedure chest pain, placement of stent, CAD, [place] - Physical status Stable (s/s of potential [...] To: Home/Alternative home - Phone number after [phone] discharge: - Method of discharge: Wheel Chair [...] or vomiting - Who patient should Primary MD Leger occoquanrobbie [facility] call: - Is patient going home No with IV Catheter?: - IV Catheter type: removed Other Discharge Education, Materials, and Instructions - Other Education, Thank you for allowing [facility] to Materials, and participate in your cares!!! Instructions: Follow Up Care - Physician/clinician Primary [facility] name: - When to see 1-2 weeks [...] Materials, and Instructions, Follow Up Care Interface, Nurse Behavioral Health Care - 10/20/2010 3:14 PM CDT Progress Note [...] LEON (RN)[Signed 14:09] Authored: Progress Note Interface, Nurse Behavioral Health Care - 10/20/2010 3:12 PM CDT Progress Note - :: Received pt. Started new IV to facilitate integrilin. BP high, Troponins continuing to rise. Dr. Barnard notified. Signatures Bladimir Gallardo (YEN)[Signed 19:16] Authored: Progress Note Interface, Nurse Behavioral Health Care - 10/20/2010 3:12 PM CDT MD Notification - Notified Person:: MD - Notified Persons dr. george Name: - Notification Time:: 21:45 - Notification Paged Interaction:: - Was a message left?: Yes - Purpose of Critical results read back notification:: - Orders received?: No - Comments:: notified md of troponin of 67.300 Signatures MACO SALCIDO (RN)[Signed 21:49] Authored: MD Notification Interface, Nurse Behavioral Health Care - 10/20/2010 3:12 PM CDT Progress Note - :: Pt's 2030 troponin came back at 67.300, Cards were called and talked a Dr. Rodarte, per as long as patient does not have chest pain and has stable vital signs does not need to go to manager labor relations emergently. Will continue to monitor Signatures MACO SALCIDO (RN)[Signed 22:12] Authored: Progress Note documented in this encounter Plan of Treatment Not on filedocumented as of this encounter Visit Diagnoses Not on filedocumented in this encounter
--- OUTSIDE RECORDS SUMMARY | 2022-07-09 14:48 | XMS_ITS | Encounter Summary ---
:1940 Author Organization [place] Address [address] [place] [address]. [place] [address] Care Team Providers Name Role Phone Unavailable [...] 06/27/2010 6:49 PM Results f or this WARDROBE ATTENDANT procedure are i n the results section . documented in this encounter Results EKG 12 LEAD (06/27/2010 6:49 PM WARDROBE ATTENDANT) Component Value Ref Range Test Analysis Performed Pathologis t Method Time At Signature Ventricular Rate 88 BPM RADIOLOGY RESULTS Atrial Rate 88 BPM RADIOLOGY RESULTS [place] Interval 162 ms RADIOLOGY RESULTS QRS Duration 88 ms RADIOLOGY RESULTS QT 346 ms RADIOLOGY RESULTS QTc 418 ms RADIOLOGY RESULTS P [place] 66 degrees RADIOLOGY RESULTS R AXIS 3 degrees RADIOLOGY RESULTS T [place] 46 degrees RADIOLOGY RESULTS Interpretation Sinus rhythm [...] Volume Laterality 06/27/2010 6:49 PM 0 1:56 WARDROBE ATTENDANT PM WARDROBE ATTENDANT Transcripton Interface ECG ORDERABLES Performing Organization Address City/State/ZIP Code Phon e Number RADIOLOGY RESULTS documented in this encounter Visit Diagnoses Not on filedocumented in this encounter
--- OUTSIDE RECORDS SUMMARY | 2022-07-09 14:48 | XMS_ITS | Encounter Summary ---
:1940 Author Organization [place] Address Count includes the [facility]0 [facility] [place] [address] Care Team Providers Name Role Phone Unavailable Primary Care Provider Unavailable Encounter Details Date Type Department Care Team Description 06/29/2010 Historic Notes INTERFACED REPORT Interface, Transcript onMD Social History Tobacco Use Types Packs/Day Years Used Date Smoking Tobacco: Never Assessed Sex Assigned at Date Recorded Not on file documented as of this encounter Progress Notes Interface, Counselor Aide - 10/20/2010 3:05 PM CDT General Information [...] for Heart Disease, Behavior Change, Impression Interface, Counselor Aide - 10/20/2010 3:05 PM CDT Progress Note [...]
--- OUTSIDE RECORDS SUMMARY | 2022-07-09 14:48 | XMS_ITS | Encounter Summary ---
:1940 Author Organization [place] Address [facility] [place] [address] Care Team Providers Name Role Phone Unavailable [...] 06/27/2010 8:47 PM Results f or this QUALITY SYSTEMS MANAGER procedure are i n the results section. HEPARIN 10A LEVEL Timed 06/27/2010 8:47 PM Resu lts for this QUALITY SYSTEMS MANAGER procedure are i n the results section. TROPONIN I Timed 06/27/2010 4:45 PM Results f or this QUALITY SYSTEMS MANAGER procedure are i n the results section. TROPONIN I Timed 06/27/2010 1:00 PM Results f or this QUALITY SYSTEMS MANAGER procedure are i n the results section. CBC WITH PLATELETS & STAT 06/27/2010 7:55 AM R esults for this DIFFERENTIAL QUALITY SYSTEMS MANAGER procedure are i n the results section. TROPONIN I STAT 06/27/2010 7:55 AM Results f or this QUALITY SYSTEMS MANAGER procedure are i n the results section. INR STAT 06/27/2010 7:55 AM Results f or this QUALITY SYSTEMS MANAGER procedure are i n the results section. PARTIAL THROMBOPLASTIN STAT 06/27/2010 7:55 AM Results for this TIME QUALITY SYSTEMS MANAGER procedure are i n the results section. D DIMER QUANTITATIVE STAT 06/27/2010 7:55 AM R esults for this QUALITY SYSTEMS MANAGER procedure are i n the results section. COMPREHENSIVE METABOLIC STAT 06/27/2010 7:55 AM Results for this PANEL QUALITY SYSTEMS MANAGER procedure are i n the results section. documented in this encounter Results (ABNORMAL) Troponin I (06/27/2010 8:47 PM QUALITY SYSTEMS MANAGER) Analysis Performed At [facility] Time Signature Troponin I ES 67.300 0.000 - MISYS (HH) 0.034 ug/L Comment: Critical Value called to and read back concha DEWEY([facility])@2142 06.27.10 CTE Specimen Anatomical Collection Method Collection Time Receive d Time (Source) Location / / Volume Laterality 06/27/2010 8:47 PM 0 8:43 QUALITY SYSTEMS MANAGER PM QUALITY SYSTEMS MANAGER Naun Thompson MD LAB - BLOOD ORDERABLES Performing Organization Address [facility] Phon e Number MISYS Heparin 10a Level (06/27/2010 8:47 PM QUALITY SYSTEMS MANAGER) athologist Signature Heparin 10A 0.33 IU/mL MISYS [...] Volume Laterality 06/27/2010 8:47 PM 0 8:30 QUALITY SYSTEMS MANAGER PM QUALITY SYSTEMS MANAGER Provider Unknown LAB - BLOOD ORDERABLES Performing Organization Address [facility] Phon e Number MISYS (ABNORMAL) Troponin I (06/27/2010 4:45 PM QUALITY SYSTEMS MANAGER) Analysis Performed At [facility] Time Signature Troponin I ES 27.500 0.000 - MISYS (HH) 0.034 ug/L Comment: Critical Value called to and read back concha MURO IN ICU AT 1720T ON 06.27.10 BY [facility] Specimen Anatomical Collection Method Collection Time Receive d Time (Source) Location / / Volume Laterality 06/27/2010 4:45 PM 0 4:43 QUALITY SYSTEMS MANAGER PM QUALITY SYSTEMS MANAGER Naun Thompson MD LAB - BLOOD ORDERABLES Performing Organization Address City/State/ZIP Code Phon e Number MISYS (ABNORMAL) Troponin I (06/27/2010 1:00 PM QUALITY SYSTEMS MANAGER) Analysis Performed At [facility] Time Signature Troponin I ES 21.200 0.000 - MISYS (HH) 0.034 ug/L Comment: Critical Value called to and read back b yuni PRATEEK ( 3RD ) 1336 06/27/10 Specimen Anatomical Collection Method Collection Time Receive d Time (Source) Location / / Volume Laterality 06/27/2010 1:00 PM 0 QUALITY SYSTEMS MANAGER 12:43 PM QUALITY SYSTEMS MANAGER Naun Thompson MD LAB - BLOOD ORDERABLES Performing Organization Address City/State/ZIP Code Phon e Number MISYS (ABNORMAL) CBC with platelets differential (06/27/2010 7:55 AM QUALITY SYSTEMS MANAGER) [facility] Method Time Signature MCV 89 78 [...] Volume Laterality 06/27/2010 7:55 AM 0 8:12 QUALITY SYSTEMS MANAGER AM QUALITY SYSTEMS MANAGER Ta Mueller MD LAB - BLOOD ORDERABLES Performing Organization Address City/State/ZIP Code Phon e Number MISYS INR (06/27/2010 7:55 AM QUALITY SYSTEMS MANAGER) P athologist Signature INR 0.91 0.86 - 1.14 MISYS Specimen Anatomical Collection Method Collection Time Receive d Time (Source) Location / / Volume Laterality 06/27/2010 7:55 AM 0 8:12 QUALITY SYSTEMS MANAGER AM QUALITY SYSTEMS MANAGER Ta Mueller MD LAB - BLOOD ORDERABLES Performing Organization Address [facility] Code Phon e Number MISYS Partial thromboplastin time (06/27/2010 7:55 AM QUALITY SYSTEMS MANAGER) P athologist Signature PTT 30 22 - 37 sec MISYS Specimen Anatomical Collection Method Collection Time Receive d Time (Source) Location / / Volume Laterality 06/27/2010 7:55 AM 0 8:12 QUALITY SYSTEMS MANAGER AM QUALITY SYSTEMS MANAGER Ta Mueller MD LAB - BLOOD ORDERABLES Performing Organization Address [facility] Code Phon e Number MISYS D dimer quantitative (06/27/2010 7:55 AM QUALITY SYSTEMS MANAGER) P athologist Signature D Dimer 0.3 0.0 - 0.50 MISYS ug/ml FEU Specimen Anatomical Collection Method Collection Time Receive d Time (Source) Location / / Volume Laterality 06/27/2010 7:55 AM 0 8:12 QUALITY SYSTEMS MANAGER AM QUALITY SYSTEMS MANAGER Ta Mueller MD LAB - BLOOD ORDERABLES Performing Organization Address City/[facility]/ZIP Code Phon e Number MISYS (ABNORMAL) Comprehensive metabolic panel (06/27/2010 7:55 AM QUALITY SYSTEMS MANAGER) P athologist Signature Sodium 139 133 - [...] Volume Laterality 06/27/2010 7:55 AM 0 8:12 QUALITY SYSTEMS MANAGER AM QUALITY SYSTEMS MANAGER Ta Mueller MD LAB - BLOOD ORDERABLES Performing Organization Address City/State/ZIP Code Phon e Number MISYS Troponin I (06/27/2010 7:55 AM QUALITY SYSTEMS MANAGER) P athologist Signature Troponin I ES <0.012 0.000 - MISYS 0.034 ug/L Specimen Anatomical Collection Method Collection Time Receive d Time (Source) Location / / Volume Laterality 06/27/2010 7:55 AM 0 8:12 QUALITY SYSTEMS MANAGER AM QUALITY SYSTEMS MANAGER Ta Mueller MD LAB - BLOOD ORDERABLES Performing Organization Address City/State/ZIP Code Phon e Number MISYS documented in this encounter Visit Diagnoses Not on filedocumented in this encounter
--- OUTSIDE RECORDS SUMMARY | 2022-07-09 14:48 | XMS_ITS | Encounter Summary ---
:1940 Author Organization [place] Address [facility]0 [place] [address] Care Team Providers Name Role Phone Elizabeth Rousseau MD Unavailable Elizabeth Rousseau MD Primary Care Provider Mckenzie Mayorga MD Primary Care Provider Luis Alberto Hernandez MD Primary Care Provider Unavailable Mckenzie Mayorga MD Primary Care Provider Senthil Mckeon MD Primary Care Provider [phone] Ta Trimble MD Unavailable [phone] Ronnie Myers Primary Care Provider Mali Dowd APRN, CNP Unavailable Encounter Details Date Type Department Care Team Description 08/20/2011 Office Visit-[facility] Heart Jeff Castañeda, [facility] [place] [address] [facility] [address] [facility] [address] [place] [address] [place] [address] (Wo rk) Social History [...] old Referring Physician: ELIZABETH ROUSSEAU Referring Clinic: [facility] CURRENT DIAGNOSES 1. - Shortness of Breath, 786.05 2. - Chest Pain-unspecified, 786.50 3. - Hyperlipidemia, 272.4 4. Obesity-(<LT>100'), 278.00 5. - Hypertension, 401.1 6. DC-S/P Inferior, 412 7. CAD, 414.00 ALLERGIES Penicillin, [...] minutes prior to Niaspan. 6. Nitrocellulose Aerosol, [place], 1 p.o. PRN as Directed 7. Pravachol 80 mg Tablet, 1 p.o. qHS 8. Protonix 40 mg Tablet, Delayed Release (E.C.), 1 p.o. 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 that works through [employer] that would be [...] on filedocumented in this encounter Care Teams Engagement Director Relationship Specialty Start Date End Date Elizabeth Rousseau MD PCP - General Family Practice 08/01/12 08/09/[address] [id number] Mckenzie Mayorga MD PCP - General 08/10/15 10/09/15 [place] [id number] [place] [address] Luis Alberto Hernandez MD PCP - General Family Practice 10/10/15 07/25/16 Mckenzie Mayorga MD PCP - General 07/26/16 12/02/18 [facility] [address] [place] [address] Senthil Mckeon, PCP - General 12/03/18 Ronnie Myers PCP - General [facility] Medicine 09/11/21 [facility] [address] [place], [place] [id number] Elizabeth Rousseau MD MD Family Practice 07/31/[address] [address] Ta Trimble Assigned Heart and 05/27/20 2 MD [facility] Provider [address] [place] [address] Mali Dowd APRN DRUG SAFETY DATA MANAGEMENT SPECIALIST Assigned Heart and 10/08/21 [address] [place] [address] documented as of this encounter
--- OUTSIDE RECORDS SUMMARY | 2022-07-09 14:48 | XMS_ITS | Encounter Summary ---
:1940 Author Organization [place] Address [facility]0 [facility] [place] [address] Care Team Providers Name Role Phone Unavailable Primary Care Provider Unavailable Encounter Details Date Type Department Care Team Description 06/27/2010 Emergency room [facility] Results EMERGENCY PHYSI DEUCE [address] [place], [place] [address] Social History Tobacco Use Types Packs/Day Years Used Date Smoking Tobacco: Never Assessed Sex Assigned at Date Recorded Not on file documented as of this encounter Progress Notes Interface, Bisque Kiln Placer - 06/28/2010 10:59 AM WELT SOLE LAYER FINAL Chief Complaint - History of Present [...] brothers and 1 sister with history of MT Medications - Medications: Pravachol Baby Aspirin Allergies PCN; Itching Past Medical/Family History - [facility] is positive for: Colon resectioning polyp - -: 5 brothers and 1 sister with history of MT. Social History - Is negative for Tobacco [...] tenderness present - Neurologic alert, oriented x3, [place] Coma Score is 15, no cranial nerve [...] information - -: ECG: Rate 81 bpm. MO interval 162. QRS duration 90. QT/QTc 356/413. [...] TREY MONTERO MT: GT Name: DONALDO BAUTISTA MRN: [id number] Account: [id number] : 1940 Visit Date: 06/27/2010 Document: [id number] SOLE LAYER documented in this encounter Plan of Treatment Not on filedocumented as of this encounter Visit Diagnoses Not on filedocumented in this encounter
--- OUTSIDE RECORDS SUMMARY | 2022-07-09 14:48 | XMS_ITS | Encounter Summary ---
:1940 Author Organization [place] Address [facility]0 [facility] [place] [address] Care Team Providers Name Role Phone Unavailable Primary Care Provider Unavailable Encounter Details Date Type Department Care Team Description 06/27/2010 Admission [facility] Ale Thompson, (Battery Mechanic) [facility] Results [address] [place], [place] [id number] (Wo rk) Social History Tobacco Use Types Packs/Day Years Used Date Smoking Tobacco: Never Assessed Sex Assigned at Date Recorded Not on file documented as of this encounter Progress Notes Ale Thompson - 07/10/2010 11:18 AM LABOR/EXCAVATOR FINAL CHIEF COMPLAINT: Chest pain. HISTORY OF PRESENT ILLNESS: Donaldo Bautista is a 70-year-old patient with history of hyperlipidemia who presents with anterior chest pain that started on the morning of admission. 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 FAMILY HISTORY: Heart disease, myocardial infarction [...] THOMPSON MD MT: QING#[id number] Name: DONALDO BAUTISTA Account: [id number] : 1940 Admitted: [id number] Document: [id number] R/EXCAVATOR documented in this encounter Plan of Treatment Not on filedocumented as of this encounter Visit Diagnoses Not on filedocumented in this encounter
--- OUTSIDE RECORDS SUMMARY | 2022-07-09 14:48 | XMS_ITS | Encounter Summary ---
:1940 Author Organization [place] Address [address] [place] [address]. [place] [address] Care Team Providers Name Role Phone Unavailable Primary Care Provider Unavailable Encounter Details Date Type Department Care Team Description 06/27/2010 Historic Results INTERFACED REPORT Interface, Transcnubia cramer [...] 06/27/2010 7:50 AM Results f or this WOOD DIE MAKER procedure are i n the results section . documented in this encounter Results EKG 12 LEAD (06/27/2010 7:50 AM WOOD DIE MAKER) Component Value Ref Range Test Analysis Performed Pathologis t Method Time At Signature Ventricular Rate 81 BPM RADIOLOGY RESULTS Atrial Rate 81 BPM RADIOLOGY RESULTS NC Interval 162 ms RADIOLOGY RESULTS QRS Duration 90 ms RADIOLOGY RESULTS QT 356 ms RADIOLOGY RESULTS QTc 413 ms RADIOLOGY RESULTS P [place]rent[place] 58 degrees RADIOLOGY RESULTS R AXIS 11 degrees RADIOLOGY RESULTS T [place] 50 degrees RADIOLOGY RESULTS Interpretation Sinus rhythm with marked sinus arrhythmia RADIOLOGY ECG Otherwise normal ECG RESULTS Unconfirmed report - interpretation of this ECG is compute r generated - see medical record for final interpretation Specimen Anatomical Collection Method Collection Time Receive d Time (Source) Location / / Volume Laterality 06/27/2010 7:50 AM 0 2:53 WOOD DIE MAKER PM WOOD DIE MAKER Transcripton Interface ECG ORDERABLES Performing Organization Address City/State/ZIP Code Phon e Number RADIOLOGY RESULTS documented in this encounter Visit Diagnoses Not on filedocumented in this encounter
--- OUTSIDE RECORDS SUMMARY | 2022-07-09 14:48 | XMS_ITS | Encounter Summary ---
:1940 Author Organization [place] Address [address] [place] [address]. [place] [address] Care Team Providers Name Role Phone Unavailable Primary Care Provider Unavailable Encounter Details Date Type Department Care Team Description 02/26/2011 Hospital Pathology [facility] Shahram Lezama MD [facility] [place] [address] (Wo rk) Social History Tobacco Use Types Packs/Day Years Used Date Smoking Tobacco: Never Assessed Sex Assigned at Date Recorded Not on file documented as of this encounter Plan of Treatment Not on filedocumented as of this encounter Procedures Procedure Name Priority Date/Time Associated Diagnosis Comme [facility] SURGICAL PATHOLOGY Routine 02/26/2011 12:00 AM Re sults for this EXAM CDT procedure are i n the results section. documented in this encounter Results Surgical pathology exam (02/26/2011 12:00 AM CDT) Component Value Ref Test Analysis Performed At [facility] Range Method Time Signature Copath Report Patient Name: DONALDO BAUTISTA MR#: [id number] Specimen #: [id number] Collected: 02/26/2011 Received: 02/26/2011 Reported: 02/27/2011 12:51 [...] s evaluation. [place] 02-27-11 TESTING LAB LOCATION: [address] ??[id number] COLLECTION SITE: Client: [facility] Location: ENDO (R) Specimen (Source) Anatomical Collection Method Collection Time Re ceived Time Location / / Volume Laterality 02/26/2011 02/26/2011 2:05 PM CDT Edna NORMAN - KYLE EDEN Performing Organization Address City/State/ZIP Code Phon e Number COPATH documented in this encounter Visit Diagnoses Not on filedocumented in this encounter
--- OUTSIDE RECORDS SUMMARY | 2022-07-09 14:48 | XMS_ITS | Encounter Summary ---
:1940 Author Organization [place] Address [facility] [place] [address] Care Team Providers Name Role Phone Unavailable Primary Care Provider Unavailable Encounter Details Date Type Department Care Team Description 06/29/2010 Discharge Summary [facility] Anna Ruff, (Clinical Data Assistant) [facility] Results [address] [facility] [address] [place] [address] Social History Tobacco Use Types Packs/Day Years Used Date Smoking Tobacco: Never Assessed Sex Assigned at Date Recorded Not on file documented as of this encounter Progress Notes Anna Ruff - 07/03/2010 9:03 AM COOPERATIVE EDUCATION COORDINATOR FINAL CHIEF COMPLAINT: Subendocardial inferolateral myocardial infarction [...] Other issues are 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
--- OUTSIDE RECORDS SUMMARY | 2022-07-09 14:48 | XMS_ITS | Encounter Summary ---
:1940 Author Organization [place] Address [facility] [place] [address] Care Team Providers Name Role Phone Zen Rousseau MD Unavailable Zen Rousseau MD Primary Care Provider Reason for Visit (Routine) - Closed Specialty Diagnoses / Procedures Referred By Contact Refer red To Contact Cardiology Diagnoses THALLIUM STRESS TEST Procedure Notes: Chest pain unspecified ON MEDS Zz Rh Echocardiography Procedures RADIOLOGY [address] [place], [place] [address] Phone: Referral ID Status Reason Start Date Expiration Date Visits Requ ested Visits Authorized [id number] Closed 07/31/2012 07/31/2013 1 1 Encounter Details Date Type Department Care Team Description 08/01/2012 Hospital Encounter [facility] Craig Godfrey, [facility] [address] [facility] [address] [place], [place] [address] [address] [place] [address] [phone] (Wo rk) Social History Tobacco Use Types Packs/Day Years Used Date Smoking Tobacco: Never Assessed Sex Assigned at Date Recorded Not on file documented as of this encounter Progress Notes Abstract, Provider - 08/02/2012 12:22 AM CST RTMENTAL SHIPPING CLERK documented in this encounter Plan of Treatment Not on filedocumented as of this encounter Visit Diagnoses Not on filedocumented in this encounter Care Teams Substation Supervisor Relationship Specialty Start Date End Date Zen Rousseau MD PCP - General Family Practice 08/01/12 08/09/15 [facility] [address] [place] [address] Zen Rousseau MD MD Family Practice 07/31/12 [address] [place] [address] documented as of this encounter
--- OUTSIDE RECORDS SUMMARY | 2022-07-09 14:48 | XMS_ITS | Encounter Summary ---
:1940 Author Organization [place] Address [address] [place] [address]. [place] [address] Care Team Providers Name Role Phone Unavailable Primary Care Provider Unavailable Encounter Details Date Type Department Care Team Description 11/03/2010 Results Only [facility] Luis Alberto Dunbar MD [facility] Results [address] [facility] [address] [place], [place] [address] (Wo rk) Social History [...] multi rest stress (11/03/2010 12:45 PM CDT) Anatomical Region Laterality Modality Chest Other Specimen (Source) Anatomical Collection Method Collection Time Re ceived Time Location / / Volume Laterality 11/03/2010 12:45 PM CDT Impressions 12/06/2010 4:39 PM CDT DONALDO MCCANN ?? PROCEDURE PERFORMED: ??Nuclear stress te [...] Luis Alberto Dunbar MD IMG NM ORDERABLES Stress thallium test (11/03/2010 11:45 AM CDT) [facility] Method Time Signature IMAGECAST RADIOLOGY RESULT DONALDO [...]
--- OUTSIDE RECORDS SUMMARY | 2022-07-09 14:48 | XMS_ITS | Encounter Summary ---
:1940 Author Organization [place] Address [facility] [place] [address] Care Team Providers Name Role Phone Elizabeth Maynard MD Unavailable Elizabeth Maynard MD Primary Care Provider Mckenzie Mayorga MD Primary Care Provider Luis Alberto Hernandez MD Primary Care Provider Unavailable Mceknzie Mayorga MD Primary Care Provider Senthil Mckeon MD Primary Care Provider [phone] Ta Trimble MD Unavailable [phone] Ronnie Myers Primary Care Provider Mali Dowd APRN, CNP Unavailable Encounter Details Date Type Department Care Team Description 07/31/2012 Office Visit-[facility] Heart Ip[place], Clinic [place] [address] [facility] [address] [facility] [address] [place] [address] [place] [address] (Wo rk) Social History Tobacco Use Types Packs/Day Years Used Date Smoking Tobacco: Never Assessed Sex Assigned at Date Recorded Not on file documented as of this encounter Progress Notes Craig Godfrey MD - 08/04/2012 3:17 PM CST Progress Note Created by: Craig Godfrey M.D. DATE: 07/31/2012 DONALDO BAUTISTA DATE OF : 1940 AGE: [age] years old Referring Physician: ELIZABETH MAYNARD Referring Clinic: [facility] CURRENT DIAGNOSES 1. - Shortness of Breath, 786.05 2. - Chest Pain-unspecified, 786.50 3. - Hyperlipidemia, 272.4 4. Obesity-(<LT>100'), 278.00 5. - Hypertension, 401.1 6. PA-S/P Inferior, 412 7. CAD, 414.00 ALLERGIES Penicillin, [...] minutes prior to Niaspan. 5. Nitrocellulose Aerosol, [place], 1 p.o. PRN as Directed 6. Pravachol 80 mg Tablet, 1 p.o. qHS 7. Protonix 40 mg Tablet, Delayed Release (E.C.), 1 p.o. daily CHIEF COMPLAINTS Followup of - Chest Pain-unspecified HISTORY OF PRESENT ILLNESS It was my pleasure to see Mr. Bautista today at the request of Dr. Maynard. 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 documented in this encounter Plan of Treatment Not on filedocumented as of this encounter Visit Diagnoses Not on filedocumented in this encounter Care Teams Instrumentation And Control Technician Relationship Specialty Start Date End Date Eliazbeth Maynard MD PCP - General Family Practice 08/01/12 08/09/[address] [address] Mckenzie Mayorga MD PCP - General 08/10/15 10/09/[address] [address] Luis Alberto Hernandez MD PCP - General Family Practice 10/10/15 07/25/16 Mckenzie Mayorga MD PCP - General 07/26/16 12/02/[address] [address] Senthil Mckeon PCP - General 12/03/18 Ronnie Myers PCP - General Family Medicine 09/11/[address] [address] Elizabeth Maynard MD MD Family Practice 07/31/[address] [address] Ta Trimble Assigned Heart and 05/27/20 2 MD [facility] Provider [address] [place] [address] Mali Dowd APRN PRODUCT MARKETING INTERN Assigned Heart and 10/08/21 [address] [place] [address] documented as of this encounter
--- OUTSIDE RECORDS SUMMARY | 2022-07-09 14:48 | XMS_ITS | Encounter Summary ---
:1940 Author Organization [place] Address [address] [place] [address]. [place] [address] Care Team Providers Name Role Phone Unavailable [...] Routine 06/28/2010 11:43 AM Results for this AUTO SERVICE REPRESENTATIVE procedure are i n the results section . documented in this encounter Results EKG 12 LEAD (06/28/2010 11:43 AM AUTO SERVICE REPRESENTATIVE) Component Value Ref Range Test Analysis Performed Pathologis t Method Time At Signature Ventricular Rate 49 BPM RADIOLOGY RESULTS Atrial Rate 49 BPM RADIOLOGY RESULTS CO Interval 154 ms RADIOLOGY RESULTS QRS Duration 88 ms RADIOLOGY RESULTS QT 450 ms RADIOLOGY RESULTS QTc 406 ms RADIOLOGY RESULTS P [place] 68 degrees RADIOLOGY RESULTS R AXIS 11 degrees RADIOLOGY RESULTS T [place] 41 degrees RADIOLOGY RESULTS Interpretation Sinus bradycardia [...] Volume Laterality 06/28/2010 11:43 06/28/2010 1:57 AM AUTO SERVICE REPRESENTATIVE PM AUTO SERVICE REPRESENTATIVE Transcripton Interface ECG ORDERABLES Performing Organization Address City/State/ZIP Code Phon e Number RADIOLOGY RESULTS documented in this encounter Visit Diagnoses Not on filedocumented in this encounter
--- OUTSIDE RECORDS SUMMARY | 2022-07-09 14:48 | XMS_ITS | Encounter Summary ---
:1940 Author Organization [place] Address [address] [place] [address]. [place] [address] Care Team Providers Name Role Phone Unavailable [...] 06/27/2010 2:01 PM Results f or this BISTRO SERVER procedure are i n the results section . documented in this encounter Results EKG 12 LEAD (06/27/2010 2:01 PM BISTRO SERVER) Component Value Ref Range Test Analysis Performed Pathologis t Method Time At Signature Ventricular Rate 121 BPM RADIOLOGY RESULTS Atrial Rate 121 BPM RADIOLOGY RESULTS MS Interval 160 ms RADIOLOGY RESULTS QRS Duration 86 ms RADIOLOGY RESULTS QT 324 ms RADIOLOGY RESULTS QTc 460 ms RADIOLOGY RESULTS P [place] 62 degrees RADIOLOGY RESULTS R AXIS 19 degrees RADIOLOGY RESULTS T [place] 54 degrees RADIOLOGY RESULTS Interpretation Sinus tachycardia RADIOLO GY ECG Otherwise normal ECG RESULTS Unconfirmed report - interpretation of this ECG is compute r generated - see medical record for final interpretation Specimen Anatomical Collection Method Collection Time Receive d Time (Source) Location / / Volume Laterality 06/27/2010 2:01 PM 0 1:55 BISTRO SERVER PM BISTRO SERVER Transcripton Interface ECG ORDERABLES Performing Organization Address City/State/ZIP Code Phon e Number RADIOLOGY RESULTS documented in this encounter Visit Diagnoses Not on filedocumented in this encounter
--- OUTSIDE RECORDS SUMMARY | 2022-07-09 14:48 | XMS_ITS | Encounter Summary ---
:1940 Author Organization [place] Address [facility] [place] [address] Care Team Providers Name Role Phone Unavailable Primary Care Provider Unavailable Encounter Details Date Type Department Care Team Description 01/19/2010 Results Only [facility] Jannette perea, Zen Damico MD Hospital Results [address] [phone] (Wo rk) Social History Tobacco Use Types Packs/Day Years Used Date Smoking Tobacco: Never Assessed Sex Assigned at Date Recorded Not on file documented as of this encounter Plan of Treatment Not on filedocumented as of this encounter Procedures Procedure Name Priority Date/Time Associated Diagnosis Comme [facility] CHEST TWO VIEWS, Routine 01/19/2010 5:46 PM Re sults for this FRONT/LAT CDT procedure are i n the results section. documented in this encounter Results CHEST X-RAY 2 VW (01/19/2010 5:46 PM CDT) Anatomical Region Laterality Modality Other Specimen (Source) Anatomical Collection Method Collection Time Re ceived Time Location / / Volume Laterality 01/19/2010 5:46 PM CDT Impressions 01/20/2010 7:07 AM CDT CHEST TWO VIEW* Jan 19, 2010 5:46:00 PM HISTORY: ??Chest wall pain, short of lizette ath,cough FINDINGS: Negative. Zen Rousseau MD GENERAL IMAGING documented in this encounter Visit Diagnoses Not on filedocumented in this encounter
--- OUTSIDE RECORDS SUMMARY | 2022-07-09 14:48 | XMS_ITS | Encounter Summary ---
:1940 Author Organization [place] Address [facility] [place] [address] Care Team Providers Name Role Phone Unavailable Primary Care Provider Unavailable Encounter Details Date Type Department Care Team Description 02/26/2011 Results Only INTERFACED REPORT Barby Rousseau MD [place] [phone] (Wo rk) Social History Tobacco Use [...] encounter Results COLONOSCOPY (02/26/2011 10:12 AM CDT) [facility] Method Time Signature COLONOSCOPY [facility] RAD IOLOGY RESULTS Patient Name: Sreedhar Bautista ?Procedure Date: 02/26/2011 10:12:37 AM ? Date of : 1940 ?Admit Type: Outpatient ? Age: 71 ? Gender: Male ? Attending MD: Abhijit Lan MD ? Procedure: ?Colonoscopy Indications: ?Personal history of colonic polyps Providers: ?Abhijit Elias MD Referring MD: ? Zen Rousseau [...]
--- OUTSIDE RECORDS SUMMARY | 2022-07-09 14:48 | XMS_ITS | Encounter Summary ---
:1940 Author Organization [place] Address [facility]0 [facility] [place] [address] Care Team Providers Name Role Phone Unavailable Primary Care Provider Unavailable Encounter Details Date Type Department Care Team Description 06/27/2010 [facility] MD EMERGENCY PHYSIC RICARDO SOFIA [address] [place], [place] [address] (Wo rk) Social History Tobacco Use Types Packs/Day Years Used Date Smoking Tobacco: Never Assessed Sex Assigned at Date Recorded Not on file documented as of this encounter Plan of Treatment Not on filedocumented as of this encounter Procedures Procedure Name Priority Date/Time Associated Diagnosis Comme nts XR CHEST 2 VIEWS Routine 06/27/2010 9:03 AM Resul ts for this WARP TYING MACHINE TENDER procedure are i n the results section. documented in this encounter Results X-ray Chest 2 vws* (06/27/2010 9:03 AM WARP TYING MACHINE TENDER) Anatomical Region Laterality Modality Chest Other Specimen (Source) Anatomical Collection Method Collection Time Re ceived Time Location / / Volume Laterality 06/27/2010 9:03 AM WARP TYING MACHINE TENDER Impressions 06/27/2010 10:25 AM WARP TYING MACHINE TENDER CHEST TWO VIEW* Jun 27, 2010 9:03:00 AM HISTORY: ??Chest Pain FINDINGS: Negative. Ta Mueller MD IMG DIAGNOSTIC IMAGING ORDER MYNOR documented in this encounter Visit Diagnoses Not on filedocumented in this encounter
--- OUTSIDE RECORDS SUMMARY | 2022-07-09 14:48 | XMS_ITS | Encounter Summary ---
:1940 Author Organization [place] Address [facility] [place] [address] Care Team Providers Name Role Phone Zen Rousseau MD Unavailable Zen Rousseau MD Primary Care Provider Mckenzie aMyorga MD Primary Care Provider Luis Alberto Hernandez MD Primary Care Provider Unavailable Encounter Details Date Type Department Care Team Description 11/03/2010 Historic Results [facility] Heart Unknown, [address] [place] [address] Social History Tobacco Use Types [...] SCAN - ARCHIVE (11/03/2010 12:00 AM CDT) Anatomical Region Laterality Modality Other Specimen (Source) Anatomical Location Collection Method / Collectio n Time Received Time / Laterality Volume 11/03/2010 Narrative This result has an attachment that is no t available. Provider Scan IMG NM ORDERABLES documented in this encounter Visit Diagnoses Not on filedocumented in this encounter Care Teams Lace Inspector Relationship Specialty Start Date End Date Zen Rousseau MD PCP - General Family Practice 08/01/12 08/09/15 [facility] [address] [place] [phone] Mckenzie Mayorga MD PCP - General 08/10/15 10/09/15 [facility] [address] [place] [address] Luis Alberto Hernandez MD PCP - General Family Practice 10/10/15 07/25/16 Zen Rousseau MD MD Family Practice 07/31/12 [facility] [address] [place] [address] documented as of this encounter
--- OUTSIDE RECORDS SUMMARY | 2022-07-09 14:49 | XMS_ITS | Encounter Summary ---
:1940 Author Organization [place] Address [address] [place] [address]. [place] [address] Care Team Providers Name Role Phone Zen Rousseau MD Unavailable Zen Rousseau MD Primary Care Provider Mckenzie Mayorga MD Primary Care Provider Luis Alberto Hernandez MD Primary Care Provider Unavailable Mckenzie Mayorga MD Primary Care Provider Senthil Mckeon MD Primary Care Provider [phone] Ta Trimble MD Unavailable [phone] Ronnie Myers Primary Care Provider Mali Dowd APRN, CNP Unavailable Encounter Details Date Type Department Care Team Description 03/03/2002 Office Visit-[facility] Heart Unknown, Becca carranza MD [address] [place] [address] Social History Tobacco Use Types Packs/Day Years Used Date Smoking Tobacco: Never Assessed Sex Assigned at Date Recorded Not on file documented as of this encounter Progress Notes Unknown, DoctorMD - 06/13/2004 3:19 PM CST DATE: 03/03/2002 DONALDO BAUTISTA DATE OF : 1940 AGE: [age] years old Referring Physician: GERONIMO BUSH MD, JR CURRENT DIAGNOSES 1. 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, and the rest of the time he [...] filedocumented in this encounter Care Teams Hot Plate Plywood Press Offbearer Relationship Specialty Start Date End Date Zen Rousseau MD PCP - General Family Practice 08/01/12 08/09/[address] [phone] Mckenzie Mayorga MD PCP - General 08/10/15 10/09/15 [place] [address] [place] [address] Luis Alberto Hernandez MD PCP - General Family Practice 10/10/15 07/25/16 Mckenzie Mayorga MD PCP - General 07/26/16 12/02/18 [facility] [address] [place] [address] Senthil Mckeon, PCP - General 12/03/18 Ronnie Myers PCP - General Family Medicine 09/11/21 [facility] [address] [place] [address] Zen Rousseau MD MD Family Practice 07/31/[address] [phone] Ta Trimble Assigned Heart and 05/27/20 2 MD [facility] Provider [address] [place] [address] Mali Dowd APRN CNP Assigned Heart and 10/08/21 [address] [place] [address] documented as of this encounter
--- OUTSIDE RECORDS SUMMARY | 2022-07-09 14:49 | XMS_ITS | Encounter Summary ---
:1940 Author Organization [place] Address [facility] [place] [address] Care Team Providers Name Role Phone Unavailable Primary Care Provider Unavailable Encounter Details Date Type Department Care Team Description 03/14/2006 Historic Results INTERFACED REPORT Rona Powell MD [facility]GICAL [facility] [address] [facility] [address] [place] [address] Social History Tobacco Use Types Packs/Day Years [...] LAB - BEAKER POCT Performing Organization Address [facility] Phon e Number MISYS (ABNORMAL) Glucose by meter (03/14/2006 4:25 PM CDT) P athologist Signature Glucose 145 (H) 60 - 110 MISYS mg/dL Specimen Anatomical Collection Method Collection Time Receive d Time (Source) Location / / Volume Laterality 03/14/2006 4:25 PM 6 4:40 CDT PM CDT Patric Powell MD LAB - BEAKER POCT Performing Organization Address [facility] Phon e Number MISYS (ABNORMAL) Glucose by meter (03/14/2006 11:52 AM CDT) P athologist Signature Glucose 131 (H) 60 - 110 MISYS mg/dL Specimen Anatomical Collection Method Collection Time Receive d Time (Source) Location / / Volume Laterality 03/14/2006 11:52 03/14/2006 AM CDT 12:15 PM CDT Patric Powell MD LAB - BEAKER POCT Performing Organization Address [facility] Phon e Number MISYS Electrolyte panel (03/14/2006 [...] LAB - BLOOD ORDERABLES Performing Organization Address [facility] Phon e Number MISYS (ABNORMAL) Calcium (03/14/2006 7:00 AM CDT) athologist Signature Calcium 8.2 (L) 8.5 - 10.4 MISYS mg/dL Specimen (Source) Anatomical Collection Method Collection Time Re ceived Time Location / / Volume Laterality 03/14/2006 7:00 AM 6 CDT Patric Powell MD LAB - BLOOD ORDERABLES Performing Organization Address [facility] Phon e Number MISYS Creatinine (03/14/2006 7:00 AM CDT) athologist Signature Creatinine 0.80 0.80 - MISYS 1.50 mg/dL GFR Estimate >90 >60 MISYS mL/min/1.7 m2 GFR Estimate If >90 >60 MISYS Black mL/min/1.7 m2 Specimen Anatomical Collection Method Collection Time Receive d Time (Source) Location / / Volume Laterality 03/14/2006 7:00 AM 6 3:02 CDT PM CDT Patric Powell MD LAB - BLOOD ORDERABLES Performing Organization Address [facility] Phon e Number MISYS (ABNORMAL) Glucose by meter (03/14/2006 6:01 AM CDT) athologist Signature Glucose 155 (H) 60 - 110 MISYS mg/dL Specimen Anatomical Collection Method Collection Time Receive d Time (Source) Location / / Volume Laterality 03/14/2006 6:01 AM 6 6:15 CDT AM CDT Patric Powell MD LAB - BEAKER POCT Performing Organization Address City/[facility] Phon e Number MISYS documented in this encounter Visit Diagnoses Not on filedocumented in this encounter
--- OUTSIDE RECORDS SUMMARY | 2022-07-09 14:49 | XMS_ITS | Encounter Summary ---
:1940 Author Organization [place] Address [address] [place] [address] Care Team Providers Name Role Phone Zen Rousseau MD Unavailable Zen Rousseau MD Primary Care Provider Mckenzie Mayorga MD Primary Care Provider Luis Alberto Hernandez MD Primary Care Provider Unavailable Encounter Details Date Type Department Care Team Description 03/02/2002 Historic Results [facility] Heart Unknown, [address] [place] [address] Social History Tobacco Use Types [...] SCAN - ARCHIVE (03/02/2002 12:00 AM CDT) Anatomical Region Laterality Modality Other Specimen (Source) Anatomical Location Collection Method / Collectio n Time Received Time / Laterality Volume 03/02/2002 Narrative This result has an attachment that is no t available. Provider Scan IMG NM ORDERABLES documented in this encounter Visit Diagnoses Not on filedocumented in this encounter Care Teams Case Folder Relationship Specialty Start Date End Date Zen Rousseau MD PCP - General Family Practice 08/01/12 08/09/15 [facility] [address] [place] [phone] Mckenzie Mayorga MD PCP - General 08/10/15 10/09/15 [facility] [address], [place] [address] Luis Alberto Hernandez MD PCP - General Family Practice 10/10/15 07/25/16 Zen Rousseau MD MD Family Practice 07/31/12 [facility] [address] [place] [address] documented as of this encounter
--- OUTSIDE RECORDS SUMMARY | 2022-07-09 14:49 | XMS_ITS | Encounter Summary ---
:1940 Author Organization [place] Address [facility] [place] [address] Care Team Providers Name Role Phone Unavailable Primary Care Provider Unavailable Encounter Details Date Type Department Care Team Description 03/19/2006 Results Only [facility] Naga Price, Hospital Results [address] [place], [place] [address] (Wo rk) Social History Tobacco Use Types Packs/Day Years Used Date Smoking Tobacco: Never Assessed Sex Assigned at Date Recorded Not on file documented as of this encounter Plan of Treatment Not on filedocumented as of this encounter Procedures Procedure Name Priority Date/Time Associated Diagnosis Comme [facility] CHEST TWO VIEWS, Routine 03/19/2006 5:55 PM Re sults for this FRONT/LAT CDT procedure are i n the results section. documented in this encounter Results CHEST X-RAY 2 VW (03/19/2006 5:55 PM CDT) Anatomical Region Laterality Modality Other Specimen (Source) Anatomical Collection Method Collection Time Re ceived Time Location / / Volume Laterality 03/19/2006 5:55 PM CDT Impressions 03/21/2006 8:05 AM CDT 2 VIEW CHEST - 03/19/2006 ?? CLINICAL HISTORY: Cough. Evaluate for co ngestive heart failure. ?? FINDINGS: Heart size upper limits of nor mal. Pulmonary vasculature within normal limits. No convincing foca l infiltrates. Naga Price MD GENERAL IMAGING documented in this encounter Visit Diagnoses Not on filedocumented in this encounter
--- OUTSIDE RECORDS SUMMARY | 2022-07-09 14:49 | XMS_ITS | Encounter Summary ---
:1940 Author Organization [place] Address [address] [place] [address]. [place] [address] Care Team Providers Name Role Phone Unavailable Primary Care Provider Unavailable Encounter Details Date Type Department Care Team Description 03/04/2006 Historic Results INTERFACED REPORT Edna Le[place] [address] (Wo rk) Social History Tobacco Use Types Packs/Day Years Used Date Smoking Tobacco: Never Assessed Sex Assigned at Date Recorded Not on file documented as of this encounter Plan of Treatment Not on filedocumented as of this encounter Procedures Procedure Name Priority Date/Time Associated Diagnosis Comme [facility] HISTOPATHOLOGY Routine 03/04/2006 12:00 AM Result s for this CDT procedure are i n the results section . documented in this encounter Results Histopathology (03/04/2006 12:00 AM CDT) Component Value Ref Test Analysis Performed At [facility] Range Method Time Signature Copath Report CASE: [id number] ^ COPATH Patient Name: DONALDO BAUTISTA MR#: [id number] Specimen #: [id number] Collected: 03/04/2006 Received: 03/04/2006 Reported: 03/05/2006 13:42 [...] adeno ma. SML/sg 03-05-06 TESTING LAB LOCATION: [facility] [address] [place], [phone] COLLECTION SITE: Client: [facility] Location: ENDO (R) Specimen (Source) Anatomical Collection Method Collection Time Re ceived Time Location / / Volume Laterality 03/04/2006 03/05/2006 1:42 PM CDT Edna Lezama MD LAB - COPATH SPECIAL DIAG OR DERABLES Performing Organization Address City/State/ZIP Code Phon e Number COPATH documented in this encounter Visit Diagnoses Not on filedocumented in this encounter
--- OUTSIDE RECORDS SUMMARY | 2022-07-09 14:49 | XMS_ITS | Encounter Summary ---
:1940 Author Organization [place] Address [address] [place] [address] Care Team Providers Name Role Phone Unavailable Primary Care Provider Unavailable Encounter Details Date Type Department Care Team Description 03/13/2006 Operative Report Yaron Burrell MD (Dehydrator Tender) SURGICAL CONSULT [facility] [address] [facility] [address] [place] [address] Social History Tobacco Use Types Packs/Day Years Used Date Smoking Tobacco: Never Assessed Sex Assigned at Date Recorded Not on file documented as of this encounter Progress Notes Interface, Dehydrator Tender - 03/13/2006 1:28 PM CDT PRELIMINARY PREOPERATIVE DIAGNOSIS: Cecal lesion. POSTOPERATIVE DIAGNOSIS: Cecal lesion. PROCEDURE: Right hemicolectomy, lysis of adhesions and repair of incisional hernia. SURGEON: Anna Burrell MD VOCATIONAL REHABILITATION SUPERVISOR: BISMARK Xiong ANESTHESIA: General. INDICATIONS FOR OPERATION: [...] BURRELL MD MT: [id number] Name: DONALDO BAUTISTA Account: [id number] : 1940 Procedure Date: 03/13/2006 Document: [id number] cc: Abhijit Elias MD documented in this encounter Plan of Treatment Not on filedocumented as of this encounter Visit Diagnoses Not on filedocumented in this encounter
--- OUTSIDE RECORDS SUMMARY | 2022-07-09 14:49 | XMS_ITS | Encounter Summary ---
:1940 Author Organization [place] Address Pending sale to [facility] [place] [address] Care Team Providers Name Role Phone Unavailable Primary Care Provider Unavailable Encounter Details Date Type Department Care Team Description 03/13/2006 Historic Results INTERFACED REPORT Rona Burrell MD [facility] [place] [address] [facility] [address] [place] [address] Social History Tobacco Use Types Packs/Day Years [...] Glucose by meter (03/13/2006 11:50 PM CDT) P athologist Signature Glucose 179 (H) 60 - 110 MISYS mg/dL Specimen Anatomical Collection Method Collection Time Receive d Time (Source) Location / / Volume Laterality 03/13/2006 11:50 03/14/2006 6:15 PM CDT AM CDT Anna Burrell MD LAB - BEMIRELLA POCT Performing Organization Address City/State/ZIP Code Phon e Number MISYS (ABNORMAL) Glucose by meter (03/13/2006 6:02 PM CDT) athologist Signature Glucose 176 (H) 60 - 110 MISYS mg/dL Specimen Anatomical Collection Method Collection Time Receive d Time (Source) Location / / Volume Laterality 03/13/2006 6:02 PM 6 6:10 CDT PM CDT Anna Burrell MD LAB - BEAKER POCT Performing Organization [...] LAB - BLOOD ORDERABLES Performing Organization Address [facility] Phon e Number MISYS Prealbumin (03/13/2006 3:52 PM CDT) athologist Signature Prealbumin 27 15 - 45 MISYS mg/dL Specimen Anatomical Collection Method Collection Time Receive d Time (Source) Location / / Volume Laterality 03/13/2006 3:52 PM 6 3:30 CDT PM CDT Anna Burrell MD LAB - BLOOD ORDERABLES Performing Organization Address [facility] Phon e Number MISYS Phosphorus (03/13/2006 3:52 PM CDT) athologist Signature Phosphorus 4.2 2.5 - 4.5 MISYS mg/dL Specimen Anatomical Collection Method Collection Time Receive d Time (Source) Location / / Volume Laterality 03/13/2006 3:52 PM 6 3:30 CDT PM CDT Anna Burrell MD LAB - BLOOD ORDERABLES Performing Organization Address [facility] Phon e Number MISYS Magnesium (03/13/2006 3:52 PM CDT) athologist Signature Magnesium 1.7 1.6 - 2.3 MISYS mg/dL Specimen Anatomical Collection Method Collection Time Receive d Time (Source) Location / / Volume Laterality 03/13/2006 3:52 PM 6 3:30 CDT PM CDT Anna Burrell MD LAB - BLOOD ORDERABLES Performing Organization Address [facility] Phon e Number MISYS Triglycerides (03/13/2006 3:52 PM CDT) athologist Signature Triglycerides 119 0 - 150 MISYS mg/dL Specimen Anatomical Collection Method Collection Time Receive d Time (Source) Location / / Volume Laterality 03/13/2006 3:52 PM 6 3:30 CDT PM CDT Anna Burrell MD LAB - BLOOD ORDERABLES Performing Organization Address [facility] Phon e Number MISYS INR (03/13/2006 3:52 PM CDT) P athologist Signature INR 0.90 0.86 - 1.14 MISYS Specimen Anatomical Collection Method Collection Time Receive d Time (Source) Location / / Volume Laterality 03/13/2006 3:52 PM 6 3:30 CDT PM CDT Anna Burrell MD LAB - BLOOD ORDERABLES Performing Organization Address [facility] Code Phon e Number MISYS Histopathology (03/13/2006 12:00 AM CDT) Component Value Ref Test Analysis Performed At Patholo gist Range Method Time Signature Copath Report CASE: [id number] ^ [facility] Patient Name: DONALDO BAUTISTA MR#: [id number] Specimen #: [id number] Collected: 03/13/2006 Received: 03/13/2006 Reported: 03/15/2006 14:05 [...] consi stency. ??No other lesions are identified. ??Channel Worker sections are submitted. MGP/sg SUMMARY OF SECTIONS: 1. ?Ileal margin 2. [...] and colonic margins. 3. No appendix present ([facility]). MICROSCOPIC: Microscopic examination was performed. MGP/sg 03-15-2006 TESTING LAB LOCATION: [facility] [address] [address] [place], [place] ??[phone] COLLECTION SITE: Client: [facility] Location: [facility] (R) Specimen (Source) Anatomical Collection Method Collection Time Re ceived Time Location / / Volume Laterality 03/13/2006 03/15/2006 2:05 PM CDT Anna Burrell MD LAB - COPATH SPECIAL DIAG OR DERABLES Performing Organization Address City/State/ZIP Code Phon e Number COPATH documented in this encounter Visit Diagnoses Not on filedocumented in this encounter
--- OUTSIDE RECORDS SUMMARY | 2022-07-09 14:49 | XMS_ITS | Encounter Summary ---
:1940 Author Organization [place] Address [facility] [place] [address] Care Team Providers Name Role Phone Unavailable Primary Care Provider Unavailable Encounter Details Date Type Department Care Team Description 03/18/2006 Historic Results INTERFACED REPORT Rona Powell MD [place]ICAL [place] [address] [facility] [address] [place] [address] Social History Tobacco Use Types Packs/Day Years [...] (03/18/2006 7:08 AM CDT) Analysis Performed At [facility] logist Time Signature Sodium 140 133 - [...] LAB - BLOOD ORDERABLES Performing Organization Address City/[facility] Phon e Number MISYS Phosphorus (03/18/2006 7:08 AM CDT) P athologist Signature Phosphorus 3.7 2.5 - 4.5 MISYS mg/dL Specimen (Source) Anatomical Collection Method Collection Time Re ceived Time Location / / Volume Laterality 03/18/2006 7:08 AM 6 CDT Patric Powell MD LAB - BLOOD ORDERABLES Performing Organization Address [facility] Phon e Number MISYS Magnesium (03/18/2006 7:08 AM CDT) P athologist Signature Magnesium 2.3 1.6 - 2.3 MISYS mg/dL Specimen (Source) Anatomical Collection Method Collection Time Re ceived Time Location / / Volume Laterality 03/18/2006 7:08 AM 6 CDT Patric Powell MD LAB - BLOOD ORDERABLES Performing Organization Address [facility] Phon e Number MISYS Triglycerides (03/18/2006 7:08 AM CDT) P athologist Signature Triglycerides 119 0 - 150 MISYS mg/dL Specimen (Source) Anatomical Collection Method Collection Time Re ceived Time Location / / Volume Laterality 03/18/2006 7:08 AM 200 6 CDT Patric Powell MD LAB - BLOOD ORDERABLES Performing Organization Address [facility] Phon e Number MISYS documented in this encounter Visit Diagnoses Not on filedocumented in this encounter
--- OUTSIDE RECORDS SUMMARY | 2022-07-09 14:49 | XMS_ITS | Encounter Summary ---
:1940 Author Organization [place] Address [facility] [place] [address] Care Team Providers Name Role Phone Unavailable Primary Care Provider Unavailable Encounter Details Date Type Department Care Team Description 03/20/2006 Historic Results [facility] Valerio Price, Hospitalists [address] [place], [place] [phone] Social History Tobacco Use Types Packs/Day Years [...] differential and platelet (03/20/2006 7:15 AM CDT) [facility] Method Time Signature MCV 89 78 - [...] Address City/State/ZIP Code Phon e Number MISYS Basic metabolic panel [...]
--- OUTSIDE RECORDS SUMMARY | 2022-07-09 14:49 | XMS_ITS | Encounter Summary ---
:1940 Author Organization [place] Address [facility] [place] [address] Care Team Providers Name Role Phone Unavailable Primary Care Provider Unavailable Encounter Details Date Type Department Care Team Description 03/17/2006 Historic Results INTERFACED REPORT Rona Powell MD SURGICAL CONSULT [place] [address] [facility] [address] [place] [address] Social History Tobacco Use Types Packs/Day Years [...] encounter Results Magnesium (03/17/2006 7:05 AM CDT) P athologist Signature Magnesium 2.3 [...] LAB - BLOOD ORDERABLES Performing Organization Address City/State/[facility] Code Phon e Number MISYS Potassium (03/17/2006 7:05 [...]
--- OUTSIDE RECORDS SUMMARY | 2022-07-09 14:49 | XMS_ITS | Encounter Summary ---
:1940 Author Organization [place] Address [address] [facility] [place] [address] Care Team Providers Name Role Phone Zen Rousseau MD Unavailable Zen Rousseau MD Primary Care Provider Mckenzie Mayorga MD Primary Care Provider Luis Alberto Hernandez MD Primary Care Provider Unavailable Encounter Details Date Type Department Care Team Description 04/03/1991 Historic Results [facility] Heart Unknown, [address] [place] [phone] Social History Tobacco Use Types Packs/Day [...] SCAN - ARCHIVE (04/03/1991 12:00 AM CDT) Anatomical Region Laterality Modality Echocardiography Specimen (Source) Anatomical Location Collection Method / Collectio n Time Received Time / Laterality Volume 04/03/1991 Narrative This result has an attachment that is no t available. Provider Scan CV ECHO ORDERABLES documented in this encounter Visit Diagnoses Not on filedocumented in this encounter Care Teams Wastewater Treatment Supervisor Relationship Specialty Start Date End Date Zen Rousseau MD PCP - General Family Practice 08/01/12 08/09/15 [facility] [address] [place] [phone] Mckenzie Mayorga MD PCP - General 08/10/15 10/09/15 [facility] [address], [place] [address] Luis Alberto Hernandez MD PCP - General Family Practice 10/10/15 07/25/16 Zen Rousseau MD MD Family Practice 07/31/12 [facility] [address] [place] [address] documented as of this encounter
--- OUTSIDE RECORDS SUMMARY | 2022-07-09 14:49 | XMS_ITS | Encounter Summary ---
:1940 Author Organization [place] Address [address] [place] [address]. [place] [address] Care Team Providers Name Role Phone Unavailable [...] RESULTS Atrial Rate 88 BPM RADIOLOGY RESULTS WI Interval 158 ms RADIOLOGY RESULTS QRS Duration 96 ms RADIOLOGY RESULTS QT 360 ms RADIOLOGY RESULTS QTc 435 ms RADIOLOGY RESULTS P [place] 62 degrees RADIOLOGY RESULTS R AXIS 14 degrees RADIOLOGY RESULTS T [place] 30 degrees RADIOLOGY RESULTS Interpretation AGE AND [...]
--- OUTSIDE RECORDS SUMMARY | 2022-07-09 14:49 | XMS_ITS | Encounter Summary ---
:1940 Author Organization [place] Address [facility] [place] [address] Care Team Providers Name Role Phone Unavailable Primary Care Provider Unavailable Encounter Details Date Type Department Care Team Description 03/13/2006 Consultation [facility] Sidney haas MD [facility] Hospitalists [address] [place] [phone] (Wo rk) Social History Tobacco Use Types Packs/Day Years Used Date Smoking Tobacco: Never Assessed Sex Assigned at Date Recorded Not on file documented as of this encounter Progress Notes Interface, Valve And Regulator Repairer - 03/14/2006 3:21 PM CDT PRELIMINARY I [...] 3. Gastroesophageal reflux disease, well controlled on jpuv-xaa-afdmzxy medications. 4. Seasonal allergies with reactive airway disease. ALLERGIES: Penicillin. FAMILY HISTORY: Father with asthma. Brother with asthma. MEDICATIONS: An outpatient basis he takes mqpy-vdl-dfzkgja medication for his gastroesophageal reflux disease and takes Pravachol 40 mg at bedtime SOCIAL HISTORY: Lives with his . 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 He is . [...] am inclined not to prescribe a postoperative beta-anneamrie for this gentleman, particularly given his especially [...] output is excellent. SIDNEY ALFONSO MD MT: [id number] Name: DONALDO BAUTISTA Account: [id number] : 1940 Consult Date: 03/13/2006 Document: [id number] cc: Patric Rousseau MD documented in this encounter Plan of Treatment Not on filedocumented as of this encounter Visit Diagnoses Not on filedocumented in this encounter
--- OUTSIDE RECORDS SUMMARY | 2022-07-09 14:49 | XMS_ITS | Encounter Summary ---
:1940 Author Organization [place] Address [facility] [place] [address] Care Team Providers Name Role Phone Unavailable Primary Care Provider Unavailable Encounter Details Date Type Department Care Team Description 03/16/2006 Historic Results INTERFACED REPORT Rona Powell MD [place]ICAL [place] [address] [facility] [address] [place] [address] Social History Tobacco Use Types Packs/Day Years [...] AM CDT Patric Powell MD LAB - BEMIRELLA POCT Performing Organization Address [facility] Phon e Number MISYS (ABNORMAL) Electrolyte panel [...] LAB - BLOOD ORDERABLES Performing Organization Address [facility] Phon e Number MISYS (ABNORMAL) Calcium (03/16/2006 7:09 AM CDT) P athologist Signature Calcium 8.4 (L) 8.5 - 10.4 MISYS mg/dL Specimen (Source) Anatomical Collection Method Collection Time Re ceived Time Location / / Volume Laterality 03/16/2006 7:09 AM 6 CDT Patric Powell MD LAB - BLOOD ORDERABLES Performing Organization Address [facility] Phon e Number MISYS (ABNORMAL) Glucose by meter (03/16/2006 6:19 AM CDT) P athologist Signature Glucose 130 (H) 60 - 110 MISYS mg/dL Specimen Anatomical Collection Method Collection Time Receive d Time (Source) Location / / Volume Laterality 03/16/2006 6:19 AM 6 7:20 CDT AM CDT Patric Powell MD LAB - BEAKER POCT Performing Organization Address [facility] Phon e Number MISYS (ABNORMAL) Glucose by meter (03/16/2006 12:53 AM CDT) P athologist Signature Glucose 139 (H) 60 - 110 MISYS mg/dL Specimen Anatomical Collection Method Collection Time Receive d Time (Source) Location / / Volume Laterality 03/16/2006 12:53 03/16/2006 7:20 AM CDT AM CDT Patric [facility] POCT Performing Organization Address City/State/ZIP Code Phon e Number MISYS documented in this encounter Visit Diagnoses Not on filedocumented in this encounter
--- OUTSIDE RECORDS SUMMARY | 2022-07-09 14:49 | XMS_ITS | Encounter Summary ---
:1940 Author Organization [place] Address [facility]0 [facility] [place] [address] Care Team Providers Name Role Phone Unavailable Primary Care Provider Unavailable Encounter Details Date Type Department Care Team Description 03/20/2006 Results Only [facility] Naga Price unireggie, Hospital Results [address] [place], [place] [address] (Wo rk) Social History Tobacco Use Types Packs/Day Years Used Date Smoking Tobacco: Never Assessed Sex Assigned at Date Recorded Not on file documented as of this encounter Plan of Treatment Not on filedocumented as of this encounter Procedures Procedure Name Priority Date/Time Associated Diagnosis Comme [facility] ECHO HEART Routine 03/20/2006 8:20 AM Results for this XTHORACIC,COMPLETE, CDT procedur e are in W/O DOPPLER the results section. documented in this encounter Results ECHO HEART,COMPLETE (03/20/2006 8:20 AM CDT) Anatomical Region Laterality Modality Other Specimen (Source) Anatomical Collection Method Collection Time Re ceived Time Location / / Volume Laterality 03/20/2006 8:20 AM CDT Impressions 03/25/2006 11:56 AM CDT ECHOCARDIOGRAM Tape #7501 Technologist Initials: ??JT M-Mode (cm) __3.7_ ??LA [...] above. Naga Price MD SPECIAL IMAGING STUDIES documented in this encounter Visit Diagnoses Not on filedocumented in this encounter
--- OUTSIDE RECORDS SUMMARY | 2022-07-09 14:49 | XMS_ITS | Encounter Summary ---
:1940 Author Organization [place] Address [address] [place] [address]. [place] [address] Care Team Providers Name Role Phone Unavailable Primary Care Provider Unavailable Encounter Details Date Type Department Care Team Description 03/19/2006 [facility] [address] [place], [place] [phone] Social History Tobacco Use Types Packs/Day Years [...] peptide nt pro (03/19/2006 5:12 PM CDT) athologist Signature BNP 17 5 - 100 [...]
--- OUTSIDE RECORDS SUMMARY | 2022-07-09 14:49 | XMS_ITS | Encounter Summary ---
:1940 Author Organization [place] Address [address] [place] [address]. [place] [address] Care Team Providers Name Role Phone Unavailable Primary Care Provider Unavailable Encounter Details Date Type Department Care Team Description 03/04/2006 GI Procedure [facility] Abhijit Elias MD None Endoscopy [facility] RETIRED XXX [address] [facility] [place] [address] [place], [place] [phone] Social History Tobacco Use Types Packs/Day Years [...] encounter Results COLONOSCOPY (03/04/2006 10:20 AM CDT) [facility] Time Signature COLONOSCOPY Endoscopy RADIOLOGY RESULTS [...] oxygen saturations were monitored ?cont inuously. The [id number] was introduced through ?the anus and advanced [...] today. ?- Return to primary care provider MD N. ? CPT Code(s): ?54882, Colonoscopy, flexible, proxim al to splenic flexure; ?with removal of tumor(s), polyp(s), or other lesion(s) by ?snare technique ICD Code(s): ?239.0, Neoplasm of Unspecified Nature of Digestive System ?211.3, Benign Neoplasm of Colon ?V12.72, Personal History of Colonic Polyps The codes documented in this report are prelimin nav and upon turf grower review may be revised to meet current compliance requirements. Phiilp Elias M.D Abhijit Elias MD Signed Date: [...]
--- OUTSIDE RECORDS SUMMARY | 2022-07-09 14:49 | XMS_ITS | Encounter Summary ---
:1940 Author Organization [place] Address [facility] 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 [employer] Sr member Encounter Details Date Type Department Care Team Description 10/01/2003 Telephone [facility] Kimberly Little CAS E TOP DISTRIBUTION EXECUTIVE - [facility] - CARE RN CONTACT ([facility] Sr MANAGEMENT DEPT [employer] member) [address] [address] [address] [place] [address] [place] [address] [phone] Social History Tobacco Use Types Packs/Day Years Used Date Smoking Tobacco: Never Assessed Sex Assigned at Date Recorded Not on file documented as of this encounter Miscellaneous Notes Telephone Encounter - 10/01/2003 11:59 PM GENERAL FARMER >> KIMBERLY LITTLE [facility] Oct 01, 2003 11:39 AM >> CALL RECEIVED. Contact: Letter sent to [facility] to inform them that this member is new with [facility]. A letter of introduction with patient program information has been mailed to this member in cluding my name and contact information as the [facility] Senior member and my assistance in care reyes nning. documented in this encounter Plan of Treatment Not on filedocumented as of this encounter Visit Diagnoses Not on filedocumented in this encounter
--- OUTSIDE RECORDS SUMMARY | 2022-07-09 14:49 | XMS_ITS | Encounter Summary ---
:1940 Author Organization [place] Address [address] [facility] [place] [address] Care Team Providers Name Role Phone Zen Rousseau MD Unavailable Zen Rousseau MD Primary Care Provider Mckenzie Mayorga MD Primary Care Provider Luis Alberto Hernandez MD Primary Care Provider Unavailable Encounter Details Date Type Department Care Team Description 03/13/2006 Historic Results [facility] Heart Unknown, [address] [place] [address] Social History Tobacco Use Types [...] SCAN - ARCHIVE (03/13/2006 12:00 AM CDT) Anatomical Region Laterality Modality Echocardiography Specimen (Source) Anatomical Location Collection Method / Collectio n Time Received Time / Laterality Volume 03/13/2006 Narrative This result has an attachment that is no t available. Provider Scan CV ECHO ORDERABLES documented in this encounter Visit Diagnoses Not on filedocumented in this encounter Care Teams Thread Singer Relationship Specialty Start Date End Date Zen Rousseau MD PCP - General Family Practice 08/01/12 08/09/15 [facility] [address] [place] [phone] Mckenzie Mayorga MD PCP - General 08/10/15 10/09/15 [facility] [address] [address] Luis Alberto Hernandez MD PCP - General Family Practice 10/10/15 07/25/16 Zen Rousseau MD MD Family Practice 07/31/12 [facility] [address] [place] [address] documented as of this encounter
--- OUTSIDE RECORDS SUMMARY | 2022-07-09 14:49 | XMS_ITS | Encounter Summary ---
:1940 Author Organization [place] Address [address] [facility] [place] [place] [address] Care Team Providers Name Role Phone Zen Rousseau MD Unavailable Zen Rousseau MD Primary Care Provider Mckenzie Mayorga MD Primary Care Provider Luis Alberto Hernandez MD Primary Care Provider Unavailable Encounter Details Date Type Department Care Team Description 02/13/2002 Historic Results [facility] Heart Unknown, [address] [place] [address] Social History Tobacco Use Types [...] SCAN - ARCHIVE (02/13/2002 12:00 AM CDT) Anatomical Region Laterality Modality Echocardiography Specimen (Source) Anatomical Location Collection Method / Collectio n Time Received Time / Laterality Volume 02/13/2002 Narrative This result has an attachment that is no t available. Provider Scan CV ECHO ORDERABLES documented in this encounter Visit Diagnoses Not on filedocumented in this encounter Care Teams Cotton Weigher Relationship Specialty Start Date End Date Zen Rousseau MD PCP - General Family Practice 08/01/12 08/09/15 [facility] [address] [place] [phone] Mckenzie Mayorga MD PCP - General 08/10/15 10/09/15 [facility] [address], [place] [address] Luis Alberto Hernandez MD PCP - General Family Practice 10/10/15 07/25/16 Zen Rousseau MD MD Family Practice 07/31/12 [facility] [address] [place] [address] documented as of this encounter
--- OUTSIDE RECORDS SUMMARY | 2022-07-09 14:49 | XMS_ITS | Encounter Summary ---
:1940 Author Organization [place] Address [facility] [place] [address] Care Team Providers Name Role Phone Unavailable Primary Care Provider Unavailable Encounter Details Date Type Department Care Team Description 03/15/2006 Historic Results INTERFACED REPORT Rona Powell MD [place]ICAL [place] [address] [facility] [address] [place] [address] Social History Tobacco Use Types Packs/Day Years [...] PM 6 7:00 CDT PM CDT Patric Powell MD LAB - BEMIRELLA POCT Performing Organization Address [facility]/ZIP Code Phon e Number MISYS Glucose by meter (03/15/2006 11:04 AM CDT) athologist Signature Glucose 94 60 - 110 MISYS mg/dL Specimen Anatomical Collection Method Collection Time Receive d Time (Source) Location / / Volume Laterality 03/15/2006 11:04 03/15/2006 AM CDT 11:15 AM CDT Patric NORMAN - BEMIRELLA POCT Performing Organization Address [facility] Code Phon e Number MISYS (ABNORMAL) Glucose by meter (03/15/2006 7:03 AM CDT) athologist Signature Glucose 120 (H) 60 - 110 MISYS mg/dL Specimen Anatomical Collection Method Collection Time Receive d Time (Source) Location / / Volume Laterality 03/15/2006 7:03 AM 6 7:20 CDT AM CDT Patric NORMAN - MIRELLA POCT Performing Organization Address [facility] Phon e Number MISYS Phosphorus (03/15/2006 6:23 AM CDT) athologist Signature Phosphorus 2.5 2.5 - 4.5 MISYS mg/dL Specimen (Source) Anatomical Collection Method Collection Time Re ceived Time Location / / Volume Laterality 03/15/2006 6:23 AM 6 CDT Patric Powell MD LAB - BLOOD ORDERABLES Performing Organization Address City/[facility]/ZIP [facility] Phon e Number MISYS Magnesium (03/15/2006 6:23 AM CDT) athologist Signature Magnesium 2.3 1.6 [...] LAB - BEAKER POCT Performing Organization Address City/[facility] Code Phon e Number MISYS documented in this encounter Visit Diagnoses Not on filedocumented in this encounter
--- OUTSIDE RECORDS SUMMARY | 2022-07-09 14:49 | XMS_ITS | Encounter Summary ---
:1940 Author Organization [place] Address [address] [facility] [place] [address] Care Team Providers Name Role Phone Unavailable Primary Care Provider Unavailable Encounter Details Date Type Department Care Team Description 03/13/2006 Discharge Summary Patrice Burrell MD (Dredge Pipeman) SURGICAL CONSULT [facility] [address] [facility] [address] [place] [address] Social History Tobacco Use Types Packs/Day Years Used Date Smoking Tobacco: Never Assessed Sex Assigned at Date Recorded Not on file documented as of this encounter Progress Notes Interface, Dredge Pipeman - 04/07/2006 8:55 PM CDT PRELIMINARY PREOPERATIVE [...] PA-C MT: [id number] Name: DONALDO BAUTISTA Account: [id number] : 1940 Admit Date: Discharge Date: 03/21/2006 Document: [id number] cc: Abhijit Elias MD documented in this encounter Plan of Treatment Not on filedocumented as of this encounter Visit Diagnoses Not on filedocumented in this encounter
--- OUTSIDE RECORDS SUMMARY | 2022-07-09 14:49 | XMS_ITS | Encounter Summary ---
:1940 Author Organization [place] Address [address] [facility] [place] [address] Care Team Providers Name Role Phone Unavailable Primary Care Provider Unavailable Reason for Visit Reason Onset Date Comments [facility] - INPATIENT 03/15/2006 FR-Rt Colon Po lyp Encounter Details Date Type Department Care Team Description 03/15/2006 Telephone [place] PH[facility]ICIAN Dorothy Ho [facility] - CARE PHYSICIAN INPATIENT ([facility] Colon Polyp) [address] [place] [address] BEV Leary [id number] [phone] Social History Tobacco Use Types Packs/Day Years [...] CDT PASS, ERV, EPIC and FCIS reviewed. Bandar Vic, RN-C CM FPA Telephone Encounter - Bandar Ho - 03/18/2006 10:29 AM CDT PASS, ERV, EPIC and FCIS reviewed. LUCY Hogan CM FPA Telephone Encounter - Bandar Ho - 03/15/2006 11:04 AM CDT This FPA [facility] member was admitted to [facility], DX: Rt Colon Polyp. PASS, ERV, EPIC and FCIS reviewed. RE: Discharge Planning - LVM with Piedad Rea [phone], that this member should stay within the [facility] to optimize continuity of care and coordination of benefits and to call if questions. LUCY Hogan CM FPA documented in this encounter Plan of Treatment Not on filedocumented as of this encounter Visit Diagnoses Not on filedocumented in this encounter
--- OUTSIDE RECORDS SUMMARY | 2022-07-09 14:50 | XMS_ITS | Clinical Summary ---
:1940 Author Organization [facility] Address [address] [place] [address] Care Team Providers Name Role Phone Unavailable Primary Care Provider Unavailable Source Comments Patient records contain information from all sites at [facility]. For routine questions regarding patient records, call [phone] during business hours, M-F 8:00 AM - 5:00 PM Central Time. 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 Anemia Of Chron ic Renal Disease; Hyperparathyroi dism Renal Secondary (HCC) from Last 3 Months Social History Tobacco Use Types Packs/Day Years Used Date Smoking Tobacco: Never Assessed Sex Assigned at Date Recorded Not on file Last Filed Vital Signs Vital Sign Reading Time Taken Comments Blood Pressure 118/64 04/10/2022 2:02 PM CDT Pulse 77 04/10/2022 2:02 PM CDT Temperature - - Respiratory Rate 16 04/10/2022 2:02 PM CDT Oxygen Saturation - - Inhaled Oxygen Concentration - - Weight 94.3 kg (208 lb) 04/10/2022 2:02 PM CDT Height 165.1 cm (5' 5) 04/10/2022 2:02 PM CDT Body Mass Index 34.61 04/10/2022 2:02 PM CDT Plan of Treatment Health Maintenance Due Date Last Done Comments Diabetic Office Visit with Foot 1940 Exam Dilated Eye Exam 1940 Urine Albumin 1940 DTaP,Tdap,and Td Vaccines (1 - 05/08/2014 05/07/2014 Tdap) Sodium Level 10/01/2020 10/01/2019, 12/03/2018 Depression Screening (Annual 08/05/2021 PHQ-2) Fall Risk Screen (Annual) 08/05/2021 COVID-19 Vaccine (5 - Booster for 02/17/2022 12/23/2021, , Pfizer series) 10/08/2020, Additional history exists Hemoglobin A1C 03/07/2022 09/07/2021, 09/13/2020 Creatinine Level 09/07/2022 09/07/2021, 10/01/2019, 12/03/2018 Potassium Level 09/07/2022 09/07/2021, 10/01/2019, 12/03/2018 Office Visit for Blood Pressure 04/10/2023 04/10/2022 Check / Re-check Pneumococcal vaccine (65+ years) Completed 05/07/2016, 05/2015 Zoster Vaccines Completed 10/20/2018, 08/24/2018 Influenza Vaccine Completed 05/13/2022, 05/13/2021, 05/08/2020, Additional history exists Insurance Payer Benefit Plan / Subscriber ID Effective Dates Phone Addre ss Type Group [facility] [id number] 2019-Present [phone] [address] [place] [address]
--- OUTSIDE RECORDS SUMMARY | 2022-07-09 14:50 | XMS_ITS | Clinical Summary ---
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 ENGINEER Pulse 72 10/10/2015 1:43 PM TECHNICIAN SUPPORT ENGINEER Temperature - - Respiratory Rate 18 11/12/2013 3:23 PM CDT Oxygen Saturation 96% 11/12/2013 3:23 PM CDT Inhaled Oxygen Concentration - - Weight 98.4 kg (217 lb) 10/10/2015 1:43 PM TECHNICIAN SUPPORT ENGINEER Height 166.4 cm (5' 5.5) 10/10/2015 1:43 PM TECHNICIAN SUPPORT ENGINEER Body Mass Index 35.56 10/10/2015 1:43 PM TECHNICIAN SUPPORT ENGINEER Plan of Treatment Upcoming Encounters Date Type Specialty Care Team Description 07/09/2022 Orders Only Health Maintenance Due Date Last Done Comments COVID-19 vaccine series (#1) 1940 Tdap 1949 Zoster (shingles) series for age 50+ (1 of 2) 01/26/1988 Pneumococcal series for age 65+ (2 - PPSV23 if 08/14/2015 0 08/14/2014 available, else PCV20) BMI (ht and wt on same day) for age 18+ 10/09/2016 10/10/19 16 Depression screening for age 12+ 10/09/2016 10/10/2015 Influenza for age 65+ 04/05/2022 04/21/2015 Tetanus booster 05/07/2024 05/07/2014 Results Not on filefrom Last 3 Months Insurance Payer Benefit Plan / Subscriber ID Effective Dates Phone Addre ss Type Group [employer] [id number] 2008-Present [address] [place] [address] Care Teams 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
--- OUTSIDE RECORDS SUMMARY | 2022-07-09 14:51 | XMS_ITS | Encounter Summary ---
:1940 Author Organization [facility] Address [address] [place] [address] Care Team Providers Name Role Phone Unavailable Primary Care Provider Unavailable Reason for Visit Appointment Request (Routine) - Closed Specialty Diagnoses / Procedures Referred By Contact Refer red To Contact Nephrology and Ronnie Myers Hypertension [place] [address] [place] [address] Referral ID Status Reason Start Date Expiration Date Visits Requ ested Visits Authorized [id number] Closed 01/04/2022 01/04/2023 1 Encounter Details Date Type Department Care Team Description 01/16/2022 External Division of Mariajose Phelps Ch Kidney Disease (CKD) Stage 3b Glomerular Filtration Rate (GFR) 30 To 44 (Primary Dx); Outreach Nephrology and Abhijit Rao Jr., Diabetes Amita litus Type 2 With Diabetic Nephropathy (HCC); Hypertension in D.O. Anemia Of Chronic Renal Disease; [place] [address] [facility] Post Traumatic Osteoarthritis Knee Left; [place], [place] Hyperparathyroidism Renal Se condary (HCC) [address] [place] [address] [place], [place] [phone] (Work) [phone] Social History Tobacco Use Types Packs/Day Years Used Date Smoking Tobacco: Never Assessed Sex Assigned at Date Recorded Not on file documented as of this encounter Consult Notes Abhijit Phelps Jr., D.O. - 01/16/2022 3:00 PM CDT Please see scanned in note under document viewer tab for the [place] [facility] [place] outreach visit from this date. Medical Problems [...]
--- OUTSIDE RECORDS SUMMARY | 2022-07-09 14:51 | XMS_ITS | Encounter Summary ---
:1940 Author Organization [facility] Address [address] [place] [address] Care Team Providers Name Role Phone Unavailable Primary Care Provider Unavailable Reason for Visit Appointment Request (Routine) - Closed Specialty Diagnoses / Procedures Referred By Contact Refer red To Contact Nephrology and Hypertension Referral ID Status Reason Start Date Expiration Date Visits Requ ested Visits Authorized [id number] Closed 03/30/2022 03/30/2023 1 Encounter Details Date Type Department Care Team Description 04/10/2022 External Division of [place], Mariajose king Kidney Disease (CKD) Stage 3b Glomerular Filtration Rate (GFR) 30 To 44 (HCC) (Primary Dx); Outreach Nephrology and Abhijit Rao Jr., Diabetes Amita litus Type 2 With Diabetic Nephropathy (HCC); Hypertension in D.O. Anemia Of Chronic Renal Disease; [place] [address] [address] [facility] Hyperparathyroidism Renal Secondary (HCC ) [place], [place] [address] [place] [address] [place], [place] [phone] (Work) [phone] Social History Tobacco Use Types Packs/Day Years [...] Mass Index 34.61 04/10/2022 2:02 PM CDT documented in this encounter Progress Notes Abhijit Phelps Jr., D.O. - 04/10/2022 2:00 PM CDT Referring Provider: No primary care provider on file. SUBJECTIVE REASON FOR VISIT [facility] out reach [facility] Follow-up regards CKD, acute kidney injury with initiation of losartan 50 mg HISTORY OF PRESENT ILLNESS Mr. Bautista is a 82 y.o. male who presents with a history of CKD and hypertension his creatinine kvng to 2 mg/dL with initiation of 50 mg daily of losartan, this dose was cut 25 mg. He is additionally using heavy doses of Aleve on a daily basis. He ceased the Aleve, we repeated his creatinine which has improved to 1.5 mg/dL. His blood pressure has been excellent, he is had no orthostatic issues no lower extremity swelling no chest pain no shortness of breath. His microalbumin to creatinine ratio was 30 milligrams/gram, from an imaging perspective, in 2020 hehad normal architecture of his kidneys bladder, without urinary drainage issues. He feels well. He is accompanied by his today. We would also stopped his metformin on the background of low blood sugars, his hemoglobin A1c is 6.8% without this agent, and he is had a tendency towards a rather high sugar diet. He understands to becareful with this. History reviewed. No pertinent past medical history. Current Outpatient Medications: aspirin [address] tablet, Take 81 mg by mouth daily., Disp: , Rfl: budesonide-formoteroL (SYMBICORT) 80-4.5 mcg/actuation inhaler, Inhale 2 puffs., Disp: , Rfl: furosemide (LASIX) 20 mg tablet, Take 20 mg by mouth., Disp: , Rfl: losartan (COZAAR) 50 mg tablet, Take 0.5 tablets by mouth daily., Disp: , Rfl: metoprolol succinate (TOPROL-XL) 25 mg 24 hr tablet, Take 1 tablet by mouth 2 (two) times a day., Disp: , Rfl: nitroglycerin (NITROSTAT) 0.4 mg SL tablet, Place 0.4 mg under the tongue., Disp: , Rfl: rosuvastatin (CRESTOR) 40 mg tablet, Take 40 mg by mouth., Disp: , Rfl: REVIEW OF SYSTEMS All other systems reviewed and are negative. OBJECTIVE BP 118/64 Pulse 77 Resp 16 Ht 165.1 cm Wt 94.3 kg BMI 34.61 kg/m?? PHYSICAL EXAMINATION General: Awake alert oriented HEENT: SOBEIDA, EOMI, Mucous membranes moist, no oral lesions Neck: No Masses, No Bruits Lungs: Clear to ascultation Heart: Regular Rate and Rhythm, No ectopy Murmurs or rubs Abdomen: Soft, Non-tender Extremities: No cyanosis, No clubbing: No edema Neuro: Cranial Nerves intact, Gait is normal, strength grossly normal Skin: no suspicious lesions identified Psychiatric: Normal affect DIAGNOSTICS Note creatinine 1.5 mg/dL, microalbumin to creatinine ratio 30 milligrams/gram, renal imaging reviewed, normal CBC, hemoglobin A1c 6.8% ASSESSMENT / PLAN #1 Hypertensive Chronic Kidney Disease (CKD) Stage 3b Glomerular Filtration Rate (GFR) 30 To 44 (HCC) His goal blood pressure should be less than 130/80 in physician's offices, and he is achieve these goals. He will avoid NSAIDs, he will be on a low-sodium diet, will continue on his current lower dose of ARB agent, 25 mg per day of losartan. I will make arrangements for him to come back in 6 months. He will continue to avoid the NSAIDs and use extra strength Tylenol 1000 mg t.i.d.. Going to look into having his knee injected. I wrote out his instructions and reviewed his labs in depth with he and his . 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 Our goal would be a hemoglobin A1c of 6.5-8%, he is achieved this without medications at this point. #3 Anemia Of Chronic Renal Disease This has resolved with treatment. #4 Hyperparathyroidism Renal Secondary (HCC) His calcium and phosphorus are acceptable Total time: 35 minutes Counseling Time: 20 minutes Abhijit Phelps Jr., D.O. documented in this encounter Plan of Treatment Not on filedocumented as of this encounter Visit Diagnoses Diagnosis Hypertensive Chronic Kidney Disease (CKD ) Stage 3b Glomerular Filtration Rate (GFR) 30 To 44 (HCC) - Primary Diabetes Mellitus Type 2 With Diabetic N ephropathy (HCC) Anemia Of Chronic Renal Disease Hyperparathyroidism Renal Secondary (HCC ) documented in this encounter
== END 2022-07-09 14:16 | disposition home or self-care (01) ==
LOC: RAD 14:17
PROVIDERS: PCP Family Medicine; Visit Provider Family Medicine
DX: I25.10 Atherosclerotic heart disease of native coronary artery without angina pectoris (principal); I51.7 Cardiomegaly; I35.1 Nonrheumatic aortic (valve) insufficiency
CPT/HCPCS: 93306

== ENCOUNTER 2022-08-17 14:15 | Outpatient (CLI) | payer MEDICARE, SELFPAY ==
[2022-08-17 15:49] LABS: Cholesterol* 181 mg/dL (90-199); HDL Cholesterol* 76 mg/dL (>=40); LDL Cholesterol Calculated 67 mg/dL (<100); Triglycerides* 191 mg/dL (40-149)
== END 2022-08-17 14:16 | disposition home or self-care (01) ==
LOC: NFLDREF 14:16
PROVIDERS: PCP Family Medicine; Visit Provider Internal Medicine
DX: I25.10 Atherosclerotic heart disease of native coronary artery without angina pectoris (principal)
CPT/HCPCS: 80061

== ENCOUNTER 2022-08-28 07:56 | Outpatient (CLI) | payer MEDICARE, SELFPAY ==
--- NOTE | 2022-08-28 08:30 | CRLHL7_ITS ---
For Patients: As a result of the Cures Act, medical imaging exams and procedure reports are released immediately into your electronic medical record. You may view this report before your referring provider. If you have questions, please contact your health care provider. [facility] ??? [facility] IM[employer] SERVICES MYOCARDIAL PERFUSION SCAN, 08/28/2022 CLINICAL HISTORY: 82-year-old male. Stage III chronic kidney disease. CAD. Hypertension. Elevated lipids. Type 2 diabetes. Aortic valve stenosis. Previous coronary artery stenting. Former smoker. 5 feet 6 inches, 195 pounds. TECHNIQUE: (Resting SPECT and stress gated SPECT with wall motion and ejection fraction) Stress: Pharmacologic - Lexiscan (0.4 mg IV) Dose (Stress/Rest): 31.0 mCi/7.91 mCi [id number] (IV) Comparison: 12/31/2008 (report) FINDINGS: There is good uptake of activity by the left ventricle. No left ventricular enlargement is noted. There is mild soft tissue attenuation. No other significant fixed or reversible defects are identified. The gated images demonstrate a normal left ventricular ejection fraction of approximately 65%. No regional wall motion abnormalities are identified. Compared to the report of the 12/31/2008 study, there has been no significant change. IMPRESSION: 1) There is no evidence of significant myocardial ischemia or infarction. 2) Normal left ventricular ejection fraction of approximately 65%. JAZ DOUGLAS M.D. Diagnostic/Nuclear Medicine Radiologist [email or web address] Transcribed: 11:[address]/Dictated by: Jaz Douglas MD @ 08/28/2022 11:14:00 AM (Electronically Signed)
[2022-08-28] MEDS: SODIUM CHLORIDE 0.9 % (FLUSH) 10 ML SYRINGE IVF (09:28)
[2022-08-28] MEDS: REGADENOSON 0.4 MG/5 ML SYRINGE IVP (09:28)
[2022-08-28 09:56] VITALS: BP 129/78; PULSE 121
--- NOTE | 2022-08-28 12:58 | P.STN_ITS ---
Stress Test Note Date Date of test: 08/28/22 Providers Primary care provider: Ronnie Myers Stress test physician: Wilson Gray Stress Test Note Stress test ordered: Lexiscan Indication for test: Chest pain Stress test medicine: Lexiscan Results discussion: This nice gentleman presents for the above test, discussion the risks benefits side effects he would like to proceed, cardiac stress test medical history form is reviewed pretest EKG shows right bundle branch block configuration, rhythm appears to be sinus, with a rate of 95 and a blood pressure 131/76. Standard Lexiscan protocol, is followed for infusion. He had no chest pain shortness of breath and was entirely symptomatic. During this test there is no ST wave changes suggestive of ischemia, his maximum heart rate was 128, which is 110% of the maximum, Impression: Negative Lexiscan, with no significant electrographic changes patient was asymptomatic Follow up suggested: Await nuclear images these will be jointly read by Cardiology and nuclear Med marcos, patient left this testing facility in excellent condition
== END 2022-08-28 07:57 | disposition home or self-care (01) ==
LOC: STRESS 07:57
PROVIDERS: PCP Family Medicine; Visit Provider Family Medicine
DX: R07.89 Other chest pain (principal); I25.10 Atherosclerotic heart disease of native coronary artery without angina pectoris
CPT/HCPCS: 78452; 93016; 93017; A9500; J2785

== ENCOUNTER 2022-09-06 14:00 | Outpatient (RCR) | payer MEDICARE, SELFPAY | END 2022-10-02 08:58 | disposition home or self-care (01) | PROVIDERS: PCP Family Medicine; Visit Provider Physician Assistant | DX: M54.50 Low back pain, unspecified (principal); Z51.89 Encounter for other specified aftercare | CPT/HCPCS: 97032; 97110; 97140; 97161 ==

== ENCOUNTER 2022-10-08 08:11 | Outpatient (CLI) | payer MEDICARE, SELFPAY | END 2022-10-08 08:12 | disposition home or self-care (01) | LOC: NFLDREF 10-12 09:54 | PROVIDERS: PCP Family Medicine; Referring Provider Family Medicine; Visit Provider Internal Medicine Nephrology | DX: E11.9 Type 2 diabetes mellitus without complications (principal); I10 Essential (primary) hypertension; N18.30 Chronic kidney disease, stage 3 unspecified | CPT/HCPCS: 80069; 82043; 82570; 82728; 83540; 83550; 84550 ==

== ENCOUNTER 2023-04-11 11:19 | Outpatient (CLI) | payer MEDICARE, SELFPAY | END 2023-04-11 11:20 | disposition home or self-care (01) | LOC: LKVREF 11:20 | PROVIDERS: PCP Family Medicine; Visit Provider Family Medicine | DX: Z00.00 Encounter for general adult medical examination without abnormal findings (principal); D64.9 Anemia, unspecified; N18.30 Chronic kidney disease, stage 3 unspecified; E66.9 Obesity, unspecified; I10 Essential (primary) hypertension; E78.5 Hyperlipidemia, unspecified; K76.0 Fatty (change of) liver, not elsewhere classified; E11.9 Type 2 diabetes mellitus without complications | CPT/HCPCS: 80069; 82043; 82570; 82607; 82728; 83540; 83550; 84550 ==

== ENCOUNTER 2023-04-22 13:38 | Outpatient (CLI) | payer MEDICARE, SELFPAY ==
--- NOTE | 2023-04-22 14:00 | CRLHL7_ITS ---
For Patients: As a result of the Cures Act, medical imaging exams and procedure reports are released immediately into your electronic medical record. You may view this report before your referring provider. If you have questions, please contact your health care provider. CLINICAL HISTORY: Enlarged localized lymph nodes FINDINGS/impression: Normal morphology supraclavicular lymph nodes. Dictated by Venessa Gutiérrez MD @ 04/23/2023 6:02:58 AM (Electronically Signed)
--- NOTE | 2023-04-22 14:45 | CRLHL7_ITS ---
For Patients: As a result of the Century Cures Act, medical imaging exams and procedure reports are released immediately into your electronic medical record. You may view this report before your referring provider. If you have questions, please contact your health care provider. Indication: TENDERNESS AND PALPABLE AREA Technique: Grayscale and color Doppler ultrasound the right axillary soft tissues performed. Comparison: None Findings: There is a normal right axillary lymph node with central fatty hilum and thin hypoechoic cortex within the area concern measuring 2.1 x 0.9 x 1.6 cm. Normal internal vascularity. Additional smaller lymph nodes are present. No suspicious findings. No fluid collection or abscess. Impression: Normal right axillary lymph nodes. No biopsy indicated. No suspicious masses. Dictated by Jacques Bernstein MD @ 04/23/2023 6:02:07 AM (Electronically Signed)
== END 2023-04-22 13:39 | disposition home or self-care (01) ==
LOC: US 13:39
PROVIDERS: PCP Family Medicine; Visit Provider Family Medicine
DX: R59.0 Localized enlarged lymph nodes (principal)
CPT/HCPCS: 76536; 76882

== ENCOUNTER 2023-05-22 13:00 | Outpatient (RCR) | payer MEDICARE, SELFPAY ==
--- NOTE | 2023-04-30 16:31 | PT.OPE ---
PT [place] Outpatient Eval [facility] Outpatient Eval Start: 04/30/23 08:41 Freq: Status: Active Protocol: Document 04/30/23 16:29 CJT (Rec: 04/30/23 16:31 CJT [id number]) E-signed By Krystian Rodriguez PT Physical Therapy Outpatient Evaluation Insurance Information Recert Due Date 07/29/23 Insurance Name Medicare B Medical Diagnosis Back pain with R-sided radiculopathy Treating Diagnosis M54.5 - low back pain M54.6 - thoracic pain Referring Ronnie Salomon MD Subjective Subjective My legs hurt and my back also . Still thinks this is partially due to his covid infection last fall. Still has been doing his 3-way hip exercises at home occasionally . Has been sleeping a lot lately and not doing his exercises. Had injections into B knees about 3 months ago and these are starting to hurt again. Back pain is at its worst when he gets out of bed in the morning. This improves with movement. In sitting he has no pain. Transitional movements seem to increase his pain. Pain Comments 12/12 Date of Last Physician Visit 04/11/23 Current Work Status Retired Preferred Name Valentina Precautions Therapy Limitations/Systems Review Not Limited Objective Other/Pertinent Objective Lumbar ROM Extension ? pain in mid back around L1-2 Flexion - no impairments, pain noted in mid back upon standing erect. R/L Side Bend - 15/15 R/L Rotation - moderate impairments B R Hip ROM Flexion ? 110 IR/ER - 28/40 Extension - 0 L Hip ROM Flexion - 110 IR/ER - 32/40 Extension - 0 R ankle PF/DF/DF: 55/-2/-4 L ankle PF/DF/DF: 55/3/-4 R Hip Strength Flexion ? 3+/5 MMT Abduction - 3+ /5 MMT Adduction - 4/ 5 MMT IR - 5/5 MMT ER - 5/5 MMT Extension - 4/5 MMT L Hip Strength Flexion ? 3+/5 MMT Abduction - 4/ 5 MMT Adduction - /4 +5 MMT IR - 5/5 MMT ER - 5/5 MMT Extension - 4/ 5 MMT R knee Extension - 5/ 5 MMT R Knee Flexion - 5/5 MMT L knee Extension - 4/ 5 MMT L knee Flexion - 4/5 MMT R ankle DF - 5/5 MMT L ankle DF - 4+/5 MMT Palpation: pt reports pain/ tenderness with palpation to L >R thoracic and lumbar paraspinals, and QL ANTHONY: positive R>L for pain in mid-back Slump, SLR, FADIR, Spurling?s negative B this date Functional Test Performed & Score Oswestry Disability Index: 23/ 50 (Moderate Disability) Assessment Assessment/Impression Valentina is a very pleasant 83 year old male who presents to our clinic for evaluation and treatment of back pain. Valentina is a returning pt to our clinic. He presents with ongoing back pain around T8-L4 level in his paraspinals. He also notes pain in deep within the spine. Testing today reveals deficits in his LE strength and ROM (see objective), however, these objective measures are improved when compared to his initial visit with me for similar issue late last year. I do feel that Valentina's return of his pain is due to prolonged periods of inactivity and lack of exercise. He does have significant muscle tightness in his paraspinals, but if he continues to perform his mobility exercises daily, these symptoms should see some improvement and he gives verbal understanding to this. The nature of the pts condition was explained and all questions were answered to the pts satisfaction. Skilled PT services are medically necessary to address deficits and return patient to highest level of function. Recommend physical therapy sessions 1-2/ week for 4-8 weeks. Pt agrees with this plan. Printout of HEP was given for I completion and pt gives verbal understanding of each exercise . Primary Functional Limitations Standing upright; hip hinge activities, supine to stand transfers Plan of Care Rehabilitation Potential Good Physical Therapy Goals STG - To be completed in 2-3 weeks: 1. Pt will report reduction in back pain by factor of 2 so that they may perform all ADLs with tolerable level of pain. 2. Pt will demonstrate ability to perform pelvic tilt with good coordination as indication of appropriate firing of pelvic and lumbar stabilizing muscles to provide greater support for pelvis and lumbar spine. 3. Pt will demonstrate 4+/5 MMT or greater for all LE motions without reproduction of pain to provide greater support to pelvis and lumbar spine. 4. Pt will report ability to tolerate 30+ minutes of standing so that they may shop for groceries with spouse. LTG - To be completed in 8 weeks: 1. Pt to be I with HEP so that they may I manage progression of symptoms. 2. Pt will demonstrate ability to stand erect from forward flexed position without back pain so that he may tie shoes, tushar LE clothing without back pain. 3. Pt will demonstrate 4/5 MMT for both upper and lower abdominals to provide greater support to pelvis and lumbar spine. Treatment Plan/Direct Interventions Joint Mobilization,Manual Therapy,Neuromuscular Re-ed, Self-Care/Home Management, Therapeutic Exercises Frequency/Duration 1-2/week for 4-8 weeks Patient Will Be Discharged From Therapy Completion of LTG(s),Skills Plateau,Independent w/HEP, Independently Progressing Evaluation Billing Untimed Code Treatment Minutes 45 PT Eval No Charge No Complexity Low Certification Information Initial Certification Date 04/30/23 Ending Certification Date 07/29/23 Provider Signature Shows Agreement With POC & Medical Necessity Physician Signature & Date Requested Please Sign/Date Here Physician Comment/Change : Physician NPI Number #
== END 2023-07-22 09:01 | disposition home or self-care (01) ==
PROVIDERS: PCP Family Medicine; Visit Provider Family Medicine
DX: M54.50 Low back pain, unspecified (principal); M54.10 Radiculopathy, site unspecified; M54.6 Pain in thoracic spine; Z51.89 Encounter for other specified aftercare
CPT/HCPCS: 97032; 97110; 97140; 97161

== ENCOUNTER 2023-10-17 08:58 | Outpatient (CLI) | payer MEDICARE, SELFPAY | END 2023-10-17 08:59 | disposition home or self-care (01) | LOC: NFLDREF 10-23 12:31 | PROVIDERS: PCP Family Medicine; Referring Provider Family Medicine; Visit Provider Internal Medicine Nephrology | DX: D64.9 Anemia, unspecified (principal); E11.22 Type 2 diabetes mellitus with diabetic chronic kidney disease; I12.9 Hypertensive chronic kidney disease with stage 1 through stage 4 chronic kidney disease, or unspecified chronic kidney disease; N18.30 Chronic kidney disease, stage 3 unspecified | CPT/HCPCS: 80069; 82043; 82310; 82570; 82728; 83540; 83550; 83970; 84550; 87086 ==

== ENCOUNTER 2024-01-29 13:00 | Outpatient (RCR) | payer MEDICARE, SELFPAY ==
--- NOTE | 2024-01-29 14:27 | PT.OPDN ---
PT [place] Outpatient Daily Note PT [facility] Outpatient Daily Note Start: 12/26/23 10:49 Freq: Status: Active Protocol: Document 01/29/24 13:00 DESTINYT (Rec: 01/29/24 13:47 CJT [id number]) E-signed By Krystian Rodriguez, PT PT OP Daily Progress Note Visit Information Note Type Daily Note Visit Number 7 Insurance Authorized Visits no auth required Physician Authorized Visits eval and treat Insurance Information Recert Due Date 03/25/24 Insurance Name Medicare B Medical Diagnosis M54.5 - low back pain M54.2 - cervicalgia Treating Diagnosis M54.5 - low back pain Referring Ronnie Salomon MD Subjective Subjective Pt presents with complaints of B foot swelling. On 01/21 pt attended with swelling in his R foot. Today both feet and legs are swollen and he points to the center of his chest and tells me he has pain there. Preferred Name Valentina Home Exercise Home Exercise Comments [id number] Objective Other/Pertinent Objective BP: 134/72 mmHg HR: 63 bpm Pulse Ox: 98% Patient Instructed in Risks/Benefits Yes Therapeutic Exercise Therapeutic Exercise Minutes (minutes) 35 Therapeutic Exercise: To Restore Bike - 6 minutes Functional Status Supine trunk rotations x 10 ea Supine marching x 10 ea Supine butterfly stretch 2 x 60 SLR 2 x 12 ea Supine HS stretch x 60 ea Supine piriformis stretch x 60 ea Hooklying piriformis stretch x 60 ea SKTC stretch mobilization 2 x 5 ea, 5 hold S/L hip flexor/quad stretch x 90 ea Manual Therapy Techniques Manual Therapy Minutes (minutes) 6 Manual Therapy Techniques STM to B glute med, glute min and piriformis to reduce tissue tension and improve extensibility. Treatment Minutes Timed Code Treatment Minutes 41 Total Treatment Time 41 Billing Units Therapeutic Exercise Units 3 Assessment/Impression Assessment/Impression Pt tolerates treatment well and denies low back pain following. He also denies chest pain that was present at start of today's session. Pt to meet with PCP tomorrow. Pt does have swelling in B calves and feet this date. This progressed from R lower leg and foot swelling that he experienced on 01/22/24. I do worry that these symptoms resemble those of CHF but pts BP, HR, and SPO2 all WNL these dates so concluded that low level activity was appropriate . Today's session consisted nearly entirely of mobility and stretching exercises. Valentina and I have agreed to discontinue therapy for the time being as he is not seeing consistent relief in his symptoms with exercise. However, I do feel that Valentina' s pain is likely due to stiffness and aching from inactivity. I expressed to him that his stretching and mobility exercises need to be performed consistently and he gives verbal understanding. He also expressed interest in pharmaceuticals for his back pain and I asked him to speak with Dr. Myers about this at his appointment tomorrow. We will hold Valentina's chart for the next 30 days. If he does not return for additional therapy during that timeframe this note will serve as his d/ c note. Plan of Care Physical Therapy Goals STG - To be completed in 2-3 weeks: 1. Pt will report reduction in back pain by factor of 2 so that they may perform all ADLs with tolerable level of pain. 2. Pt will report going for 5 minute walk daily to encourage improved upright posture and reduced tissue tension in anterior hip bilaterally. 3. Pt will report ability to tolerate 10+ minutes of standing so that they may [facility] LTG - To be completed in 4 weeks: 1. Pt to be I with HEP so that they may I manage progression of symptoms. 2. Pt will report ability to stand and/or walk for 30 minutes so that he may shop for groceries and go for walks for light exercise with his . 3. Pt will demo minimally positive Gloria's test bilaterally as indication of improve muscle tissue length in anterior thighs to reduce pressure on B SIJs. Daily Plan of Care Change POC; See Comments Daily Plan of Care Comments Hold chart Recertification Information Provider Signature Shows Agreement With POC & Medical Necessity
== END 2024-03-19 13:57 | disposition home or self-care (01) ==
PROVIDERS: PCP Family Medicine; Visit Provider Family Medicine
DX: M54.2 Cervicalgia (principal); M54.50 Low back pain, unspecified; M54.10 Radiculopathy, site unspecified; Z51.89 Encounter for other specified aftercare
CPT/HCPCS: 97110; 97140; 97161

== ENCOUNTER 2024-04-16 10:57 | Outpatient (CLI) | payer MEDICARE, SELFPAY ==
--- OUTSIDE RECORDS SUMMARY | 2024-04-20 19:01 | XMS_ITS | Encounter Summary ---
Author Organization [facility] Address [address] [place] [address]. [place] [address] Care Team Providers Care Supervisor Phosphorus Processing Name Role Phone Elizabeth Rousseau MD Unavailable [phone] Elizabeth Rousseau MD Primary Care Provider [phone] Mckenzie Mayorga MD Primary Care Provider Luis Alberto Hernandez MD Primary Care Provider Gloria vailable Mckenzie Mayorga MD Primary Care Provider Senthil Mckeon MD Primary Care Provider + Ta Trimble MD Unavailable [phone] Ronnie Myers MD Primary Care Provider Mali Dowd APRN MACHINE SHOP SUPERVISOR Unavailable [phone] Perry Marie DPM Unavailable [phone] Encounter Details Date Type Department Care Team (Late st Contact Info) Description 07/31/2012 Office Visit-[facility] [address] [facility] [address] [place] [address] Craig Godfrey MD [address] [facility] [address] [place] [address] Social History Tobacco Use Types Packs/Day Years Used Date Smoking Tobacco: Never Assessed Sex and Gender Information Value Date Recorded Sex Assigned at Not on file Gender Identity Not on file Sexual Orientation Not on file documented as of this encounter Progress Notes * Craig Godfrey MD - 08/04/2012 3:17 PM CST Progress Note Created by: Craig Gofdrey M.D. DATE: 07/31/2012 DONALDO BAUTISTA DATE OF : 1940 AGE: [age] years old Referring Physician: ELIZABETH ROUSSEAU Referring Clinic: [facility] CURRENT DIAGNOSES 1. - Shortness of Breath, 786.05 2. - Chest Pain-unspecified, 786.50 3. - Hyperlipidemia, 272.4 4. Obesity-(<LT>100'), 278.00 5. - Hypertension, 401.1 6. [place]-S/P Inferior, 412 7. CAD, 414.00 ALLERGIES Penicillin, [...] minutes prior to Niaspan. 5. Nitrocellulose Aerosol, [place], 1 p.o. PRN as Directed 6. Pravachol 80 mg Tablet, 1 p.o. qHS 7. Protonix 40 mg Tablet, Delayed Release (E.C.), 1 p.o. daily CHIEF COMPLAINTS Followup of - Chest Pain-unspecified HISTORY OF PRESENT ILLNESS It was my pleasure to see Mr. Bautista today at the request of Dr. Rousseau. He is here for evaluation of chest pains which may possibly represent angina. I have reviewed this gentleman's previous medical records. 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 My former colleague, Dr. Luis Alberto Dunbar, performed angiography and described mild to moderate disease in his coronary vasculature with theexception of a subtotally occluded OM-2 which was [...] are normal. I did not detect chest wall tenderness. His chest is clear. 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 If this doesnot show any significant changes from previously, he should follow up with his primary physician for further evaluation of his noncardiac chest pains. Otherwise, I have set him up to see Dr. Carballo a year's time. Finally, I have again discussed the importance of having a better diet and more exercise. He tells me he will start using his treadmill in the basement. TODAYS ORDERS 1. F/U with Abhijit Castañeda MD 1 year 2. Treadmill Nuclear Study 3 days, Patient ON Meds, MD able to convert to pharm stress if pt unableto exercise Craig Godfrey M.D. documented in this encounter Plan of Treatment Not on file documented as of this encounter Visit Diagnoses Not on filedocumented in this encounter Care Teams Supervisor Phosphorus Processing Relationship Specialty Start Date End Date Elizabeth Rousseau MD [address] [place] [phone] PCP - General Family Practice 08/01/12 08/09/15 Mckenzie Mayorga MD [address] [address] PCP - General 08/10/15 10/09/15 Luis Alberto Hernandez MD [address] [address] PCP - General Family Practice 10/10/15 07/25/16 Mckenzie Mayorga MD [address] [address] PCP - General 07/26/16 12/02/18 Senthil Mckeon MD [address] [address] PCP - General 12/03/18 09/10/21 Ronnie Myers MD [address] [place] [address] PCP - General Family Medicine 09/11/21 Elizabeth Rousseau MD [address] [place] [phone] Family Practice 07/31/12 Ta Trimble MD [address] [place], [place] [phone] Assigned Heart and Vascular Provider 05/27/20 10/07/21 Mali Dowd APRN MACHINE SHOP SUPERVISOR [address] [place], [place] [address] Assigned Heart and Vascular Provider 10/08/21 04/05/23 Perry Marie DPM [address] [facility] [address] [place], [place] [address] Assigned Musculoskeletal Provider 06/29/23 documented as of this encounter
--- OUTSIDE RECORDS SUMMARY | 2024-04-20 19:01 | XMS_ITS | Encounter Summary ---
Author Organization [facility] Address [address] [place] [address]. [place] [address] Care Team Providers Care Under Water Assistant Name Role Phone Zen Rousseau MD Unavailable Senthil Mckeon MD Primary Care Provider + Ta Trimble MD Unavailable Ronnie Myers MD Primary Care Provider [phone] Mali Dowd APRN WHEEL ALIGNMENT TECHNICIAN Unavailable [phone] Perry Marie DPM Unavailable [phone] Encounter Details Date Type Department Care Team (Late st Contact Info) Description 03/29/2021 MyC Medical Advice [facility] Centralized Scheduling [facility] [place] [address] Janell Watson Social History Tobacco Use Types Packs/Day Years Used Date Smoking Tobacco: Former Smokeless Tobacco: Never Comments:quit about 30 years ago Alcohol Use Standard Drinks/Week Comments Yes 0 (1 standard drink = 0.6 oz pur e alcohol) rare Sex and Gender Information Value Date Recorded Sex Assigned at Not on file Gender Identity Not on file Sexual Orientation Not on file documented as of this encounter Plan of Treatment Not on file documented as of this encounter Visit Diagnoses Not on filedocumented in this encounter Care Teams Under Water Assistant Relationship Specialty Start Date End Date Senthil Mckeon MD [address] [facility] [place] [address] PCP - General 12/03/18 09/10/21 Ronnie Myers MD [address] [place] [address] PCP - General Family Medicine 09/11/21 Zen Rousseau MD [address] [place] [phone] Family Practice 07/31/12 Ta Trimble MD [address] [place] [address] Assigned Heart and Vascular Provider 05/27/20 10/07/21 Mali Dowd APRN WHEEL ALIGNMENT TECHNICIAN [address] [place] [address] Assigned Heart and Vascular Provider 10/08/21 04/05/23 Perry Marie DPM [address] [facility] [address] [place] [address] Assigned Musculoskeletal Provider 06/29/23 documented as of this encounter
--- OUTSIDE RECORDS SUMMARY | 2024-04-20 19:01 | XMS_ITS | Encounter Summary ---
Author Organization [facility] Address [address] [place] [address]. [place] [address] Care Team Providers Care Windows Application Administrator Name Role Phone Elizabeth Rousseau MD Unavailable [phone] Elizabeth Rousseau MD Primary Care Provider [phone] Mckenzie Mayorga MD Primary Care Provider Luis Alberto Hernandez MD Primary Care Provider Gloria vailable Mckenzie Mayorga MD Primary Care Provider Senthil Mckeon MD Primary Care Provider + Ta Trimble MD Unavailable [phone] Ronnie Myers MD Primary Care Provider [phone] Mali Dowd APRN NURSING HOME PHYSICIAN Unavailable [phone] Perry Marie DPM Unavailable [phone] Encounter Details Date Type Department Care Team (Late st Contact Info) Description 08/20/2011 Office Visit-[facility] [address] [place] [address] Abhijit Castañeda MD Social History Tobacco Use Types Packs/Day Years Used Date Smoking Tobacco: Never Assessed Sex and Gender Information Value Date Recorded Sex Assigned at Not on file Gender Identity Not on file Sexual Orientation Not on file documented as of this encounter Progress Notes * Abhijit Castañeda MD - 08/27/2011 1:18 PM CST Progress Note Created by: Abhijit Castañeda M.D. DATE: 08/20/2011 DONALDO BAUTISTA DATE OF : 1940 AGE: [age] years old Referring Physician: ELIZABETH ROUSSEAU Referring Clinic: [facility] CURRENT DIAGNOSES 1. - Shortness of [...] minutes prior to Niaspan. 6. Nitrocellulose Aerosol, [place], 1 p.o. PRN as Directed 7. Pravachol 80 mg Tablet, 1 p.o. qHS 8. Protonix 40 mg Tablet, Delayed Release (E.C.), 1 p.o. daily CHIEF COMPLAINTS yearly follow up HISTORY OF PRESENT ILLNESS I had the pleasure of seeing your patient, Donaldo Bautista, at [facility] for evaluation of coronary artery disease, hyperlipidemia, and [...] exercising to any major extent. He eats excessiveamounts of calories, fat, and carbohydrates. The patient denies PND, orthopnea, peripheral edema, sy ncope, or presyncope. His most recent fasting lipid profile from your office dated 07/24/11 showed triglycerides 230, total cholesterol 202, HDL 57, LDL 99, with a ratio of 3.5. On physical exam, current blood pressure is 130/70, pulse is 64 and regular, weight 221 pounds, relatively unchanged from one year ago. BMI is 36. HEENT is benign without xanthelasma. Chest is clear to auscultation. Cardiac exam: Regular rate and rhythm with an S4 gallop, but no S3 or murmur. No JVD. Pulses are all intact without bruits. Abdomen is obese, soft, and nontender without organomegaly.Extremities are without cyanosis, clubbing, or edema. 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 daily #-1 Physician Order IMPRESSIONS/PLAN ASSESSMENT: 1. [...] him to discontinue his Plavix. 2. The patient's diet, exercise, and weight all need attention. I have attempted to direct him to a nutrition consult, but he does not wish to drive to [facility]. Perhaps you have a ore smelter that works through your office that would be more convenient for him. 3. I did spend greater than 50% of my 30 minutevisit with him today counseling him on diet, exercise, and weight loss. 4. This patient's LDL cholesterol is probably small, dense and he probably has increased particle numbers given the high triglycerides. This would certainly improve with diet, exercise, and weight loss. In the meantime he has not tolerated Lipitor in the past. In order to get his triglycerides down without adding further medic gilles, perhaps using Crestor instead of pravastatin would [...] on filedocumented in this encounter Care Teams Windows Application Administrator Relationship Specialty Start Date End Date Elizabeth Rousseau MD [address] [place] [phone] PCP - General Family Practice 08/01/12 08/09/15 Mckenzie Mayorga MD [facility] [address] [place] [address] PCP - General 08/10/15 10/09/15 Luis Alberto Hernandez MD [place] [id number], [place] [address] PCP - General Family Practice 10/10/15 07/25/16 Mckenzie Mayorga MD [place] [id number] [place] [address] PCP - General 07/26/16 12/02/18 Senthil Mckeon MD [place] [id number], [place] [address] PCP - General 12/03/18 09/10/21 Ronnie Myers MD [address] [place] [address] PCP - General Family Medicine 09/11/21 Elizabeth Rousseau MD [address] [place] [phone] Family Practice 07/31/12 Ta Trimble MD [address] [place] [address] Assigned Heart and Vascular Provider 05/27/20 10/07/21 Mali Dowd APRN NURSING HOME PHYSICIAN [address] [place] [address] Assigned Heart and Vascular Provider 10/08/21 04/05/23 Perry Marie DPM [address] [facility] [address] [place] [address] Assigned Musculoskeletal Provider 06/29/23 documented as of this encounter
--- OUTSIDE RECORDS SUMMARY | 2024-04-20 19:01 | XMS_ITS | Encounter Summary ---
Author Organization [facility] Address [address] [place] [address]. [place] [address] Care Team Providers Care Stained Glass Glazier Name Role Phone Zen Rousseau MD Unavailable [phone] Zen Rousseau MD Primary Care Provider [phone] Mckenzie Mayorga MD Primary Care Provider [phone] Luis Alberto Hernandez MD Primary Care Provider Gloria vailable Mckenzie Mayorga MD Primary Care Provider Senthil Mckeon MD Primary Care Provider + Ta Trimble MD Unavailable [phone] Ronnie Myers MD Primary Care Provider [phone] Mali Dowd APRN WHOLESALE LOAN PROCESSOR Unavailable [phone] Perry Marie DPM Unavailable [phone] Encounter Details Date Type Department Care Team (Late st Contact Info) Description 08/07/2010 Office Visit-[facility] [place] [id number] [facility] [address] [place] [address] Luis Alberto Dunbar MD [address] [place] [address] Social History Tobacco Use Types Packs/Day Years Used Date Smoking Tobacco: Never Assessed Sex and Gender Information Value Date Recorded Sex Assigned at Not on file Gender Identity Not on file Sexual Orientation Not on file documented as of this encounter Progress Notes * Luis Alberto Dunbar MD - 08/07/2010 1:54 PM CST Progress Note Created by: [place] [id number] DATE: 08/07/2010 DONALDO BAUTISTA DATE OF : 1940 AGE: [age] years old Referring Physician: GERONIMO BUSH [facility] CURRENT DIAGNOSES 1. W[place]-S/P Inferior, 412 2. - Hypertension, 401.1 3. Obesity-(<LT>100'), 278.00 4. - Hyperlipidemia, 272.4 5. - Shortness of Breath, 786.05 6. - Chest Pain-unspecified, 786.50 7. CAD, 414.00 ALLERGIES Penicillin, Itching and rash MEDICATIONS (prior to changes made today) 1. Advair Diskus 500-50 mcg/Dose Disk with Device 2. Pravachol 80 mg Tablet, 1 p.o. qHS 3. Nitrocellulose Aerosol, [place], 1 p.o. PRN as Directed 4. Aspirin [...] appreciated seeing Mr. Bautista today in the [facility] for the [facility]. I saw him at the time of an acute inferolateral myocardial infarction and performed angioplasty and stenting to an obtuse marginal branch of the circumflex late last year.I am pleased to see that he has done well without recurrent angina. He also states that his breathing has been improved since discharge as well. He is back to work and is asymptomatic from a cardiovascular perspective. He has been bothered by some itchiness of his arms. He has also noted some relative coolness of hishands and feet. On exam, he looks comfortable. 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 I have set him up for a stress test in three months. He will need this [...] days. If his LDL cholesterol is not inthe range of 70-80mg/dl, I would switch him from Pravachol to 80 mg of simvastatin versus 40 mg daily of Crestor to achieve lower LDL levels. Otherwise, I have encouraged him to remain on his other medications including lisinopril, Lopressor, aspirin and Plavix. Finally, I have made arrangements to see him in follow-up in a year. I appreciate being involved inhis care. TODAYS ORDERS 1. Treadmill Nuclear Study 3 months,MD able to convert to pharm stress if pt unable to exercise 2. Return Visit 1 year Luis Alberto Dunbar MD documented in this encounter Plan of Treatment Not on file documented as of this encounter Visit Diagnoses Not on filedocumented in this encounter Care Teams Stained Glass Glazier Relationship Specialty Start Date End Date Zen Rousseau MD [address] [place] [phone] PCP - General Family Practice 08/01/12 08/09/15 Mckenzie Mayorga MD [address] [address] PCP - General 08/10/15 10/09/15 Luis Alberto Hernandez MD [address] [address] PCP - General Family Practice 10/10/15 07/25/16 Mckenzie Mayorga MD [facility] [address] [place] [address] PCP - General 07/26/16 12/02/18 Senthil Mckeon MD [facility] [address] [place] [address] PCP - General 12/03/18 09/10/21 Ronnie Myers MD [address] [place], [place] [address] PCP - General Family Medicine 09/11/21 Zen Rousseau MD [address] [place] [phone] Family Practice 07/31/12 Ta Trimble MD [address] [place], [place] [address] Assigned Heart and Vascular Provider 05/27/20 10/07/21 Mali Dowd APRN WHOLESALE LOAN PROCESSOR [address] [place], [place] [address] Assigned Heart and Vascular Provider 10/08/21 04/05/23 Perry Marie DPM [address] [facility] [address] [place], [place] [address] Assigned Musculoskeletal Provider 06/29/23 documented as of this encounter
--- OUTSIDE RECORDS SUMMARY | 2024-04-20 19:01 | XMS_ITS | Clinical Summary ---
Author Organization [facility] Address [facility] access hospital0 [facility] [place] [address] Care Team Providers Care Film Drying Machine Operator Name Role Phone Zen Rousseau MD Unavailable [phone] Ronnie Myers MD Primary Care Provider [phone] Perry Marie DPM Unavailable [phone] Allergies Active Allergy Reactions Criticality Noted Date Comments Fish Oil Other (See Comments) 09/30/2014 Bloody noses Penicillins Itching 05/24/2014 Medications Medication Sig Dispensed Refills Start Date End Date Status pantoprazole (PROTONIX) 40 MG enteric coated tablet Take 40 mg by mouth every 48 hours Active budesonide-formotero l (SYMBICORT) 80-4.5 MCG/ACT Inhaler Inhale 2 puffs into the lungs 2 times daily Active aspirin 81 MG tablet Take 81 mg by mouth daily Active Cyanocobalamin (VITAMIN B 12 PO) Take 500 mcg by mouth daily Active nitroglycerin (NITROSTAT) 0.4 MG SL tabletIndications:Co ronary artery disease involving [place] coronary artery of [place] heart without angina pectoris Place 1 tablet (0.4 mg) under the tongue every 5 minutes as needed for chest pain 25 tablet 3 10/04/2015 Active rosuvastatin (CRESTOR) 40 MG tabletIndications:Mi xed hyperlipidemia,Coron nav artery disease involving [place] coronary artery of [place] heart without angina pectoris Take 1 tablet (40 mg) by mouth daily 90 tablet 2 02/21/2021 Active furosemide (LASIX) 20 MG tabletIndications:Es sential hypertension,Coronar y artery disease involving [place] coronary artery of [place] heart without angina pectoris Take 1 tablet (20 mg) by mouth daily 90 tablet 3 10/04/2021 Active albuterol (PROAIR HFA/PROVENTIL HFA/VENTOLIN HFA) 108 (90 Base) MCG/ACT inhaler Inhale 1-2 puffs into the lungs every 6 hours as needed for shortness of breath / dyspnea or wheezing Active ferrous gluconate (FERGON) 324 (38 Fe) MG tablet Take 324 mg by mouth daily (with breakfast) Active metoprolol tartrate (LOPRESSOR) 25 MG tabletIndications:Es sential hypertension Take 1 tablet (25 mg) by mouth 2 times daily 180 tablet 09/26/2022 Active losartan (COZAAR) 50 MG tabletIndications:Es sential hypertension Take 0.5 tablets (25 mg) by mouth daily -Due for follow up with Cardiology, please call [phone] to arrange 90 tablet 10/08/2022 Active Active Problems Problem Noted Date Diagnosed Date Mixed hyperlipidemia 12/08/2015 Aortic valve disorder [...] Comments Brother 1 Alive 7 brothers Heart attacks Brother 2 Brother 3 Brother 4 Brother 5 Father camacho Mother heart and diabet es Sister 1 MVA passed Sister 2 Alive 2 sisters Heart attacks Sister 3 Alive Social History Tobacco Use Types Packs/Day Years Used Date Smoking Tobacco: Former Smokeless Tobacco: Never Tobacco Cessation:Counseling Given: Not Answered Comments:quit about 30 years ago Alcohol Use Standard Drinks/Week Comments Yes 0 (1 standard drink = 0.6 oz pur e alcohol) rare PHQ-2 Answer Date Recorded PHQ-2 Score 0 06/10/2023 Adolescent Education Answer Date Record ed Getting School Help Needed Not on file 05/04 Sex and Gender Information Value Date Recorded Sex Assigned at Not on file Gender Identity Not on file Sexual Orientation Not on file Last Filed Vital Signs Vital Sign Reading Time Taken Comments Blood Pressure 150/73 06/10/2023 3:27 PM FRENCH PASTRY COOK Pulse 57 06/10/2023 3:27 PM FRENCH PASTRY COOK Temperature 36.7 ??C (98.1 ??F) 06/19/2022 10:[address] Respiratory Rate 18 06/19/2022 10:58 AM FRENCH PASTRY COOK Oxygen Saturation 100% 06/19/2022 10:58 AM FRENCH PASTRY COOK Inhaled Oxygen Concentration - - Weight 90.7 kg (200 lb) 06/10/2023 3:27 PM FRENCH PASTRY COOK Height 167.6 cm (5' 6) 06/10/2023 3:27 PM FRENCH PASTRY COOK Body Mass Index 32.28 06/10/2023 3:27 PM FRENCH PASTRY COOK Plan of Treatment Health Maintenance Due Date Last Done Comments ADVANCE CARE PLANNING 1940 ANNUAL REVIEW OF HM ORDERS 1940 FALL RISK ASSESSMENT 2003 MEDICARE ANNUAL WELLNESS VISIT 2003 RSV VACCINE (1 - 1-dose 75+ series) 2013 DTAP/TDAP/TD IMMUNIZATION (1 - Tdap) 05/08/2014 05/07/2014 LIPID 09/13/2021 09/13/2020, 05/06, 06/04/2017, Additional history exists PHQ-2 (once per calendar year) 2023 06/10/2023 COVID-19 Vaccine ( season) 2024 12/23/2021, 05/21/2021, 10/08/2020, Additional history exists INFLUENZA VACCINE (#1) 2024 3, 05/13/2022, 05/13/2021, Additional history exists Pneumococcal Vaccine: 65+ Years Completed 05/07/2016, 08/14/2014 ZOSTER IMMUNIZATION Completed 10/20/2018, 9 HPV IMMUNIZATION Aged Out No longer e ligible based on patient's age to complete this topic MENINGITIS IMMUNIZATION Aged Out No l onger eligible based on patient's age to complete this topic RSV MONOCLONAL ANTIBODY Aged Out No l onger eligible based on patient's age to complete this topic Procedures Procedure Name Priority Date/Time Associated Diagnosis Comments LIPID PROFILE Routine 09/13/2020 from Last 3 Months or Most Recently Relevant to Health Maintenance Results * Lipid Profile (09/13/2020) Cholesterol 184 90 - 200 mg/dL [facility] Triglycerides 100 40 - 197 mg/dL [facility] HDL Cholesterol 79 40 mg/dL [facility] LDL Cholesterol Calculated 85 100 mg/dL [facility] Non HDL Cholesterol [facility] Blood specimen (specimen) 09/13/2020 Patient Reported LAB - BLOOD ORDERABL ES [facility] [address] [place] [address], [facility] [phone] from Last 3 Months or Most Recently Relevant to Health Maintenance Advance Directives For more information, please contact: [phone] * Full Code (Latest Code Status on File) Date Activated Date Inactivated Comments 11/11/2016 10:06 AM 08/26/2019 7:12 AM * Full Code Date Activated Date Inactivated Comments 11/10/2016 8:03 PM 11/11/2016 10:06 AM Care Teams Film Drying Machine Operator Relationship Specialty Start Date End Date Ronnie Myers [facility] [phone] PCP - General Family Medicine 09/11/21 Zen Rousseau MD [address] [place] [address] Family Practice 07/31/12 Perry Marie DPM [address] 799367 Assigned Musculoskeletal Provider 06/29/23
--- OUTSIDE RECORDS SUMMARY | 2024-04-20 19:01 | XMS_ITS | Referral Summary ---
Author Organization [facility] Address [facility] [place] [address] Care Team Providers Care Account Executive Healthcare Name Role Phone Zen Rousseau MD Unavailable [phone] Ronnie Myers MD Primary Care Provider [phone] Perry Marie DPM Unavailable [phone] Allergies Active Allergy Reactions Criticality Noted Date [...] MG SL tabletIndications:Co ronary artery disease involving [place] coronary artery of [place] heart without angina pectoris Place 1 tablet (0.4 mg) under the tongue every 5 minutes as needed for chest pain 25 tablet 3 10/04/2015 Active rosuvastatin (CRESTOR) 40 MG tabletIndications:Mi xed hyperlipidemia,Coron nav artery disease involving [place] coronary artery of [place] heart without angina pectoris Take 1 tablet (40 mg) by mouth daily 90 tablet 2 02/21/2021 Active furosemide (LASIX) 20 MG tabletIndications:Es sential hypertension,Coronar y artery disease involving [place] coronary artery of [place] heart without angina pectoris Take 1 tablet [...] for follow up with Cardiology, please call [phone] to arrange 90 tablet 10/08/2022 Active Active Problems Problem Noted Date Diagnosed Date Mixed hyperlipidemia 12/08/2015 Aortic valve disorder 10/04/2015 High cholesterol Hypertension CAD (coronary artery disease) Overview: mild/mod disease in RCA, INGRID to OM2 Past history of myocardial infarction Overview: 06/2010 Non QWave Stented coronary artery SOB (shortness of breath) Social History Tobacco Use Types Packs/Day Years [...] Comments Blood Pressure 150/73 06/10/2023 3:27 PM FEDERAL APPELLATE CLERK Pulse 57 06/10/2023 3:27 PM FEDERAL APPELLATE CLERK Temperature 36.7 ??C (98.1 ??F) 06/19/2022 10:[address] Respiratory Rate 18 06/19/2022 10:58 AM FEDERAL APPELLATE CLERK Oxygen Saturation 100% 06/19/2022 10:58 AM FEDERAL APPELLATE CLERK Inhaled Oxygen Concentration - - Weight 90.7 kg (200 lb) 06/10/2023 3:27 PM FEDERAL APPELLATE CLERK Height 167.6 cm (5' 6) 06/10/2023 3:27 PM FEDERAL APPELLATE CLERK Body Mass Index 32.28 06/10/2023 3:27 PM FEDERAL APPELLATE CLERK Plan of Treatment Not on file Procedures Procedure Name Priority Date/Time Associated Diagnosis Comments LIPID PROFILE Routine 09/13/2020 from Last 3 Months or Most Recently Relevant to Health Maintenance Results * Lipid Profile (09/13/2020) Cholesterol 184 90 - 200 mg/dL [facility] Triglycerides 100 40 - 197 mg/dL [facility] HDL Cholesterol 79 40 mg/dL [facility] LDL Cholesterol Calculated 85 100 mg/dL [facility] Non HDL Cholesterol [facility] Blood specimen (specimen) 09/13/2020 Patient Reported LAB - BLOOD ORDERABL ES [facility] [address] [phone] from Last 3 Months or Most Recently Relevant to Health Maintenance Advance Directives For more information, please contact: [phone] * Full Code (Latest Code Status on File) Date Activated Date Inactivated Comments 11/11/2016 10:06 AM 08/26/2019 7:12 AM * Full Code Date Activated Date Inactivated Comments 11/10/2016 8:03 PM 11/11/2016 10:06 AM Care Teams Account Executive Healthcare Relationship Specialty Start Date End Date Ronnie Myers MD [address] [place] [phone] PCP - General Family Medicine 09/11/21 Zen Rousseau MD [address] [place] [phone] Family Practice 07/31/12 Perry Marie DPM [address] [facility] [address] [place] [address] Assigned Musculoskeletal Provider 06/29/23
--- OUTSIDE RECORDS SUMMARY | 2024-04-20 19:01 | XMS_ITS | Encounter Summary ---
Author Organization [facility] Address [address] [place] [address]. [place] [address] Care Team Providers Care Substitute School Nurse Name Role Phone Zen Rousseau MD Unavailable [phone] Senthil Mckeon MD Primary Care Provider + Ta Trimble MD Unavailable [phone] Ronnie Myers MD Primary Care Provider [phone] Mali Dowd APRN DIE CUTTER DIAMOND Unavailable [phone] Perry Marie DPM Unavailable [phone] Encounter Details Date Type Department Care Team (Late st Contact Info) Description 04/03/2021 External Order Results [facility] [address] [place] [address] Outside, Provider Social History Tobacco Use Types Packs/Day Years Used Date Smoking Tobacco: Former Smokeless Tobacco: Never Comments:quit about 30 years ago Alcohol Use Standard Drinks/Week Comments Yes 0 (1 standard drink = 0.6 oz pur e alcohol) rare Sex and Gender Information Value Date Recorded Sex Assigned at Not on file Gender Identity Not on file Sexual Orientation Not on file COVID-19 Exposure Response Date Recorded In the last month, have you been in contact with someone who was confirmed or suspected to have Coronavirus / COVID-19? No / Unsure 04/06/2021 8:22 AM CDT documented as of this encounter Plan of Treatment Not on file documented as of this encounter Procedures Procedure Name Priority Date/Time Associated Diagnosis Comments COVID-19 VIRUS (CORONAVIRUS) BY PCR (EXTERNAL RESULT) Routine 04/03/2021 9:55 AM CDT documented in this encounter Results * COVID-19 Virus (Coronavirus) by PCR (External Result) (04/03/2021 9:55 AM CDT) COVID-19 Virus by PCR (External Result) ABSENT ABSENT NON-INTERFACED (ONBASE SCANS) 04/03/2021 9:55 AM CDT Narrative [facility] - 05/03/2021 11:54 AM CDT Verified by Damion German on 05/03/2021. Patient Reported LABORATORY [facility] NON-INTERFACED (ONBASE SCANS) documented in this encounter Visit Diagnoses Not on filedocumented in this encounter Care Teams Substitute School Nurse Relationship Specialty Start Date End Date Senthil Mckeon MD [address] [place] [phone] PCP - General 12/03/18 09/10/21 Ronnie Myers MD [address] [place] [phone] PCP - General Family Medicine 09/11/21 Zen Rousseau MD [address] [place] [phone] Family Practice 07/31/12 Ta Trimble MD [address] [place] [address] Assigned Heart and Vascular Provider 05/27/20 10/07/21 Mali Dowd APRN DIE CUTTER DIAMOND [address] [place] [address] Assigned Heart and Vascular Provider 10/08/21 04/05/23 Perry Marie DPM [address] [facility] [address] [place] [address] Assigned Musculoskeletal Provider 06/29/23 documented as of this encounter
--- OUTSIDE RECORDS SUMMARY | 2024-04-20 19:01 | XMS_ITS | Encounter Summary ---
Author Organization [facility] Address [address] [place] [address]. [place] [address] Care Team Providers Care Resource Management Specialist Name Role Phone Elizabeth Rousseau MD Unavailable [phone] Elizabeth Rousseau MD Primary Care Provider [phone] Mckenzie Mayorga MD Primary Care Provider Luis Alberto Hernandez MD Primary Care Provider Gloria vailable Mckenzie Mayorga MD Primary Care Provider Senthil Mckeon MD Primary Care Provider + Ta Trimble MD Unavailable [phone] Ronnie Myers MD Primary Care Provider Mali Dowd APRN ANALYSIS MANAGER Unavailable [phone] Perry Marie DPM Unavailable [phone] Encounter Details Date Type Department Care Team (Late st Contact Info) Description 08/13/2013 Office Visit-[facility] [place] [address] [facility] [address] [place] [address] Craig Godfrey MD [address] [facility] [address] [place] [address] Social History Tobacco Use Types Packs/Day Years Used Date Smoking Tobacco: Never Assessed Sex and Gender Information Value Date Recorded Sex Assigned at Not on file Gender Identity Not on file Sexual Orientation Not on file documented as of this encounter Progress Notes * Craig Godfrey MD - 08/18/2013 2:07 PM CST Progress Note Created by: Craig Godfrey M.D. DATE: 08/13/2013 DONALDO BAUTISTA DATE OF : 1940 AGE: [age] years old Referring Physician: ELIZABETH ROUSSEAU Referring Clinic: [facility] CURRENT DIAGNOSES 1. - Shortness of Breath, 786.05 2. - Chest Pain-unspecified, 786.50 3. - Hyperlipidemia, 272.4 4. Obesity-(<LT>100'), 278.00 5. - Hypertension, 401.1 6. [place]-S/P Inferior, 412 7. CAD, 414.00 ALLERGIES Penicillin, [...] minutes prior to Niaspan. 5. Nitrocellulose Aerosol, [place], 1 p.o. PRN as Directed 6. Pravachol 80 mg Tablet, 1 p.o. qHS 7. Protonix 40 mg Tablet, Delayed Release (E.C.), 1 p.o. daily CHIEF COMPLAINTS Followup of - Chest Pain-unspecified HISTORY OF PRESENT ILLNESS It is a pleasure for me to see Mr. Bautista. He is here for follow-up of coronary artery disease. I had the pleasure of seeing this delightful gentleman last year for follow-up as well. In 2009 he had anon-Q wave myocardial infarction. His angiography and percutaneous [...] I reassured him as such. 3. Obesity. Weight management advice was provided. 4. Hyperlipidemia. He is on high dose statin with pravastatin at 80 mg once daily. 5. Cool peripheries. I think it is more than likely that has cold peripheries due to the very cold weather recently.In addition, I do notice some loss of subcutaneous fat with aging. I think these is likely to be the main reasons. However, he was told it may be due to one of the medications that he is on. I do seethat he is taking metoprolol and this may be the medication that his primary physician is thinking about. With the blood pressure of 110/60 and stable coronary artery disease I had advised him take adrug holiday. He will be off metoprolol for a week and then he will call us to see if there is any i mprovement in his symptoms. I do think he is stable right now. I will see him again in a year's time for further follow-up. TODAYS ORDERS 1. Return Visit 1 year Craig Godfrey M.D. documented in this encounter Plan of Treatment Not on file documented as of this encounter Visit Diagnoses Not on filedocumented in this encounter Care Teams Resource Management Specialist Relationship Specialty Start Date End Date Elizabeth Rousseau MD [address] [place] [phone] PCP - General Family Practice 08/01/12 08/09/15 Mckenzie Mayorga MD [address] [address] PCP - General 08/10/15 10/09/15 Luis Alberto Hernandez MD [address] [address] PCP - General Family Practice 10/10/15 07/25/16 Mckenzie Mayorga MD [address] [address] PCP - General 07/26/16 12/02/18 Senthil Mckeon MD [address] [address] PCP - General 12/03/18 09/10/21 Ronnie Myers MD [address] [place] [address] PCP - General Family Medicine 09/11/21 Elizabeth Rousseau MD [address] [place] [phone] Family Practice 07/31/12 Ta Trimble MD [address] [place] [address], [place] [address] Assigned Heart and Vascular Provider 05/27/20 10/07/21 Mali Dowd APRN ANALYSIS MANAGER [address] [place] [address] Assigned Heart and Vascular Provider 10/08/21 04/05/23 Perry Marie DPM [address] [facility] [address] [place] [address] Assigned Musculoskeletal Provider 06/29/23 documented as of this encounter
--- OUTSIDE RECORDS SUMMARY | 2024-04-20 19:01 | XMS_ITS | Encounter Summary ---
Author Organization [facility] Address [address] [place] [address]. [place] [address] Care Team Providers Care Special Education Assistant Name Role Phone Elizabeth Rousseau MD Unavailable [phone] Elizabeth Rousseau MD Primary Care Provider [phone] Mckenzie Mayorga MD Primary Care Provider Luis Alberto Hernandez MD Primary Care Provider Gloria vailable Mckenzie Mayorga MD Primary Care Provider Senthil Mckeon MD Primary Care Provider + Ta Trimble MD Unavailable [phone] Ronnie Myers MD Primary Care Provider Mali Dowd APRN CLOTH CALENDER Unavailable [phone] Perry Marie DPM Unavailable [phone] Encounter Details Date Type Department Care Team (Late st Contact Info) Description 10/16/2013 Office Visit-[facility] [place] [address] [facility] [address] [place] [address] Craig Godfrey MD [address] [facility] [address] [place] [address] Social History Tobacco Use Types Packs/Day Years Used Date Smoking Tobacco: Never Assessed Sex and Gender Information Value Date Recorded Sex Assigned at Not on file Gender Identity Not on file Sexual Orientation Not on file documented as of this encounter Progress Notes * Craig Godfrey MD - 10/21/2013 11:38 AM CDT Progress Note Created by: Craig Godfrey M.D. DATE: 10/16/2013 DONALDO BAUTISTA DATE OF : 1940 AGE: [age] years old Referring Physician: ELIZABETH ROUSSEAU Referring Clinic: [facility] CURRENT DIAGNOSES 1. - Shortness of Breath, 786.05 2. - Chest Pain-unspecified, 786.50 3. - Hyperlipidemia, 272.4 4. Obesity-(<LT>100'), 278.00 5. - Hypertension, 401.1 6. OR-S/P Inferior, 412 7. CAD, 414.00 ALLERGIES Penicillin, [...] #0 (Zero) Dosage Decreased, Nitrocellulose Aerosol and [place] 1 p.o. PRN as Directed #0 Substitution IMPRESSIONS/PLAN IMPRESSION/PLAN: I do wonder if his continued dry cough is a result of lisinopril. He is on a heftydose of his medication at 20 mg p.o [...] him to monitor his blood pressure outside ofthe clinic setting. His current blood pressure was [...] on filedocumented in this encounter Care Teams Special Education Assistant Relationship Specialty Start Date End Date Elizabeth Rousseau MD [address] [place] [phone] PCP - General Family Practice 08/01/12 08/09/15 Mckenzie Mayorga MD [address] [address] PCP - General 08/10/15 10/09/15 Luis Alberto Hernandez MD [address] [address] PCP - General Family Practice 10/10/15 07/25/16 Mckenzie Mayorga MD [address] [address] PCP - General 07/26/16 12/02/18 Senthil Mckeon MD [address] [address] PCP - General 12/03/18 09/10/21 Ronnie Myers MD [address] [place] [address] PCP - General Family Medicine 09/11/21 Elizabeth Rousseau MD [address] [place] [address] Family Practice 07/31/12 Ta Trimble MD [address] [place] [address] Assigned Heart and Vascular Provider 05/27/20 10/07/21 Mali Dowd APRN CLOTH CALENDER [address] [place] [address] Assigned Heart and Vascular Provider 10/08/21 04/05/23 Perry Marie DPM [address] [facility] [address] [place] [address] Assigned Musculoskeletal Provider 06/29/23 documented as of this encounter
--- OUTSIDE RECORDS SUMMARY | 2024-04-20 19:01 | XMS_ITS | Encounter Summary ---
Author Organization [facility] Address [address] [place] [address]. [place] [address] Care Team Providers Care Slice Cutting Machine Operator Name Role Phone Zen Rousseau MD Unavailable Senthil Mckeon MD Primary Care Provider + Ta Trimble MD Unavailable Ronnie Myers MD Primary Care Provider Mali Dowd APRN WAREHOUSE SHIPPER Unavailable [phone] Perry Marie DPM Unavailable [phone] Encounter Details Date Type Department Care Team (Late st Contact Info) Description 09/07/2021 External Order Results [facility] [address] [place] [address] Outside, Provider Social History Tobacco Use Types [...] Procedure Name Priority Date/Time Associated Diagnosis Comments CBC WITH PLATELETS & DIFFERENTIAL Routine 09/07/2021 3:00 PM WATER PROJECT ENGINEER RENAL PANEL Routine 09/07/2021 3:00 PM WATER PROJECT ENGINEER HEPATIC FUNCTION PANEL Routine 3:00 PM WATER PROJECT ENGINEER ERYTHROCYTE SEDIMENTATION RATE AUTO Routine 09/07/2021 3:00 PM WATER PROJECT ENGINEER VITAMIN B12 Routine 09/07/2021 3:00 PM WATER PROJECT ENGINEER documented in this encounter Results * Vitamin B12 (09/07/2021 3:00 PM WATER PROJECT ENGINEER) Pathologist [facility] Vitamin B12 (External) 841 243 - 894 pg/mL NON-INTERFACED (ONBASE SCANS) Blood 09/07/2021 3:00 PM WATER PROJECT ENGINEER Narrative BREEZE PFT - 10/04/2021 8:44 AM WATER PROJECT ENGINEER Verified by Olga Lidia Beard on 10/04/2021. Provider Outside LAB - BLOOD ORDERABL Performing Organization Address [facility]/ZIP Co de Phone Number B[facility]ZE PFT NON-INTERFACED (ONBASE SCANS) * Erythrocyte sedimentation rate auto (09/07/2021 3:00 PM WATER PROJECT ENGINEER) Pathologist [facility] ESR (External) 9 0 - 15 MM/HR NON-INTERFACED (ONBASE SCANS) Blood 09/07/2021 3:00 PM WATER PROJECT ENGINEER Narrative BREEZE PFT - 10/04/2021 8:44 AM WATER PROJECT ENGINEER Verified by Olga Lidia Beard on 10/04/2021. Provider Outside LAB - BLOOD ORDERABL BREEZE PFT NON-INTERFACED (ONBASE SCANS) * (ABNORMAL) CBC with Platelets & Differential (09/07/2021 3:00 PM WATER PROJECT ENGINEER) Pathologist [facility] WBC Count (External) 8.6 4.5 - 11.0 K/UL NON-INTERFACE D (ONBASE SCANS) RBC Count (External) 4.36 4.30 - 5.90 M/UL NON-INTERFACE D (ONBASE SCANS) Hemoglobin (External) 12.4(L) 13.5 - 17.5 GM/DL NON-INTERFACE D (ONBASE SCANS) Hematocrit (External) 40.1 37 - 53 % NON-INTERFACE D (ONBASE SCANS) MCV (External) 92 80 - 100 fL NON-INTERFACE D (ONBASE SCANS) MCH (External) 28 26 - 34 PG NON- INTERFACE D (ONBASE SCANS) MCHC (External) 31(L) 32 - 36 GM/DL NON-INTERFACE D (ONBASE SCANS) Platelet Count (External) 174 140 - 440 K/UL NON-INTERFACE D (ONBASE SCANS) % Neutrophils (External) 47.7 42 - 72 % NON-INTERFACE D (ONBASE SCANS) % Lymphocytes (External) 39.9 20 - 44 % NON-INTERFACE D (ONBASE SCANS) % Monocytes (External) 9.9 0 - 11 % NON-INTERFACE D (ONBASE SCANS) % Eosinophils (External) 2.1 0 - 7 % NON-INTERFACE D (ONBASE SCANS) Absolute Basophils (External) 0.4 0.0 - 3.0 % NON-INTERFACE D (ONBASE SCANS) Absolute Neutrophils (External) 4.1 1.7 - 7.0 % NON-INTERFACE D (ONBASE SCANS) Absolute Lymphocytes (External) 3.4(H) 0.9 - 2.9 K/UL NON-INTERFACE D (ONBASE SCANS) Absolute Monocytes (External) 0.9 0.0 - 0.9 K/UL NON-INTERFACE D (ONBASE SCANS) Absolute Eosinophils (External) 0.2 0.0 - 0.5 K/UL NON-INTERFACE D (ONBASE SCANS) % Basophils (External) 0.0 0.0 - 0.3 % NON-INTERFACE D (ONBASE SCANS) Blood 09/07/2021 3:00 PM WATER PROJECT ENGINEER Narrative ZOHREH PFBelinda - 10/04/2021 8:44 AM WATER PROJECT ENGINEER Verified by Olga Lidia Beard on 10/03/2021. Provider Outside LAB - BLOOD ORDERABL ES ZOHREH NERI NON-INTERFACED (ONBASE SCANS) * Hepatic function panel (09/07/2021 3:00 PM WATER PROJECT ENGINEER) Protein Total (External) 6.6 6.0 - 8.3 g/dL NON-INTERFACED (ONBASE SCANS) Bilirubin Total (External) 1.3 0.1 - 1.5 mg/dl NON-INTERFACED (ONBASE SCANS) Alk Phosphatase (External) 56 40 - 150 U/L NON-INTERFACED (ONBASE SCANS) Blood 09/07/2021 3:00 PM WATER PROJECT ENGINEER Narrative BREEZE PFT - 10/04/2021 8:44 AM WATER PROJECT ENGINEER Verified by Olga Lidia Beard on 10/03/2021. Provider Outside LAB - BLOOD ORDERABL ES ZOHREH PFT NON-INTERFACED (ONBASE SCANS) * Renal panel (09/07/2021 3:00 PM WATER PROJECT ENGINEER) Urea Nitrogen (External) 21 7 - 30 mg/dL NON-INTERFACED (ONBASE SCANS) Sodium (External) 139 135 - 149 mmol/L NON-INTERFACED (ONBASE SCANS) Chloride (External) 101 96 - 114 mmol/L NON-INTERFACED (ONBASE SCANS) CO2 (External) 30 20 - 32 mmol/L NON-INTERFACED (ONBASE SCANS) Calcium (External) 9.2 8.4 - 10.6 mg/dL NON-INTERFACED (ONBASE SCANS) Albumin (External) 4.1 3.3 - 5.0 g/dL NON-INTERFACED (ONBASE SCANS) Blood 09/07/2021 3:00 PM WATER PROJECT ENGINEER Narrative BREEZE PFT - 10/04/2021 8:44 AM WATER PROJECT ENGINEER Verified by Kati Beard10/03/2021. Provider Outside LAB - BLOOD ORDERABL ES ZOHREH PFT NON-INTERFACED (ONBASE SCANS) documented in this encounter Visit Diagnoses Not on filedocumented in this encounter Care Teams Slice Cutting Machine Operator Relationship Specialty Start Date End Date Senthil Mckeon MD [address] [place] [address] PCP - General 12/03/18 09/10/21 Ronnie Myers MD [address] [place] [id number] PCP - General Family Medicine 09/11/21 Zen Rousseau MD [address] [place] [address] Family Practice 07/31/12 Ta Trimble MD [address] [place], [place] [address] Assigned Heart and Vascular Provider 05/27/20 10/07/21 Mali Dowd APRN WAREHOUSE SHIPPER [address] [place], [place] [address] Assigned Heart and Vascular Provider 10/08/21 04/05/23 Perry Marie DPM [address] [facility] [address] [place], [place] [address] Assigned Musculoskeletal Provider 06/29/23 documented as of this encounter
--- OUTSIDE RECORDS SUMMARY | 2024-04-20 19:01 | XMS_ITS | Encounter Summary ---
Author Organization [facility] Address [address] [place] [address]. [place] [address] Care Team Providers Care Auto Body Repairman Name Role Phone Zen Rousseau MD Unavailable [phone] Senthil Mckeon MD Primary Care Provider + Ta Trimble MD Unavailable [phone] Ronnie Myers MD Primary Care Provider [phone] [address] Mali E SUPPLY CHAIN BUYER SALES MANAGEMENT INTERN Unavailable [phone] Perry Marie DPM Unavailable [phone] Reason for Visit * Reason Onset Date Comments Appointment 09/08/2021 Calling to sched ule appt Encounter Details Date Type Department Care Team (Late st Contact Info) Description 09/08/2021 Telephone [facility] [address] [place] [address] [address] [place] [address] Nile Mali E, SUPPLY CHAIN BUYER SALES MANAGEMENT INTERN [address] [place], [place] [address] Appointment (Calling to schedule appt) Social History Tobacco Use Types Packs/Day Years [...] documented as of this encounter Miscellaneous Notes * Telephone Encounter - [facility] - 09/08/2021 [...] to: Other: Cardiology Travel Screening: Not Applicable WORK TIER documented in this encounter Plan of Treatment Not on file documented as of this encounter Visit Diagnoses Not on filedocumented in this encounter Care Teams Auto Body Repairman Relationship Specialty Start Date End Date Senthil Mckeon MD [address] [place] [phone] PCP - General 12/03/18 09/10/21 Ronnie Myers MD [address] [place] [address] PCP - General Family Medicine 09/11/21 Zen Rousseau MD [address] [place] [phone] Family Practice 07/31/12 Ta Trimble MD 6 [place] [address] Assigned Heart and Vascular Provider 05/27/20 10/07/21 Mali Dowd APRN SALES MANAGEMENT INTERN [address] [place] [address] Assigned Heart and Vascular Provider 10/08/21 04/05/23 Perry Marie DPM [address] [address] Assigned Musculoskeletal Provider 06/29/23 documented as of this encounter
--- OUTSIDE RECORDS SUMMARY | 2024-04-20 19:01 | XMS_ITS | Encounter Summary ---
Author Organization [facility] Address [address] [place] [address]. [place] [address] Care Team Providers Care Backrest Assembler Name Role Phone Zen Rousseau MD Unavailable [phone] Zen Rousseau MD Primary Care Provider [phone] Mckenzie Mayorga MD Primary Care Provider Luis Alberto Hernandez MD Primary Care Provider Gloria vailable Mckenzie Mayorga MD Primary Care Provider Senthil Mckeon MD Primary Care Provider + Ta Trimble MD Unavailable [phone] Ronnie Myers MD Primary Care Provider [phone] Mali Dowd APRN MOLD SETTER Unavailable [phone] Perry Marie DPM Unavailable [phone] Encounter Details Date Type Department Care Team (Late st Contact Info) Description 03/03/2002 Office Visit-[facility] [address] [place] [address] Unknown, MD Ivan Social History Tobacco Use Types Packs/Day Years Used Date Smoking Tobacco: Never Assessed Sex and Gender Information Value Date Recorded Sex Assigned at Not on file Gender Identity Not on file Sexual Orientation Not on file documented as of this encounter Progress Notes * Unknown, MD Ivan - 06/13/2004 3:19 PM CST DATE: 03/03/2002 [...] daughter. He is a 62-year-old male who over the last five years has noticed increasing problems with shortness of breath with exertion. His would say that his dyspnea has probably been longer than that. He is concerned about heart disease because three out of his four male siblings have either had bypass surgery or heart attacks, and his sister has also had some sort of cardiovascular problems. He had an episode of numbness in his arms at one time and became alarmed about his heart and was sent for a stress echo that was technically difficult, and then a nuclear isotope stress test that was interpreted as being normal. He had a fr iend who also had severe dyspnea and was [...] is controlled. He has not had hypertension or diabetes. He has had some rudimentary pulmonary testing [...] food, loves steaks with gravy, and will commonlyhave a big bowl of ice cream. 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 His diet is terrible, and his calorie consumption is far too excessive. I was happyto tell him that his nuclear stress test gives us an 85% confidence level that he does not have anysignificant coronary artery disease, and certainly there is [...] down by lowering his calorie intake, and we talked a lot about Weight Watchers and how [...] he probably does have more emphysematous lung diseasethan he appreciates. 2.I have not made any follow up appointments for him as there is not a specific cardiac issue that needs to be followed up with. He may very well need some help with dietary counseling through a Weight Watchers program. Again, his is very knowledgeable about all of the right things to do, but of course it is difficult for her to get her to change his lifestyle. Document electronically signed by : Luis Alberto Massey M.D. Date : 06/13/2004 Time : 3:19:08 PM documented in this encounter Plan of Treatment Not on file documented as of this encounter Visit Diagnoses Not on filedocumented in this encounter Care Teams Backrest Assembler Relationship Specialty Start Date End Date Zen Rousseau MD [address] [place] [address] PCP - General Family Practice 08/01/12 08/09/15 Mckenzie Mayorga MD [address] [address] PCP - General 08/10/15 10/09/15 Luis Alberto Hernandez MD [address] [address] PCP - General Family Practice 10/10/15 07/25/16 Mckenzie Mayorga MD [address] [address] PCP - General 07/26/16 12/02/18 Senthil Mckeon MD [address] [address] PCP - General 12/03/18 09/10/21 Ronnie Myers MD [address] [place] [id number] PCP - General Family Medicine 09/11/21 Zen Rousseau MD [address] [place] [address] Family Practice 07/31/12 Ta Trimble MD [address] [place] [address] Assigned Heart and Vascular Provider 05/27/20 10/07/21 Mali Dowd APRN MOLD SETTER [address] [place] [address] Assigned Heart and Vascular Provider 10/08/21 04/05/23 Perry Marie DPM [address] [facility] [address] [place] [address] Assigned Musculoskeletal Provider 06/29/23 documented as of this encounter
--- OUTSIDE RECORDS SUMMARY | 2024-04-20 19:02 | XMS_ITS | Referral Summary ---
Author Organization [facility] Address [address] [place] [address] Care Team Providers Care Transport Specialist Name Role Phone Unavailable Primary Care Provider Unavailabl e Source Comments Patient records contain information from all sites at [facility]. For routine questions regarding patient records, call [phone] during business hours, M-F 8:00 AM - 5:00 PM Central Time. Record requests for emergency care only can be directed to [phone] at any time.[facility] Encounters Date Type Department Care Team Description 04/20/2024 2:00 PM CDT External Outreach Division of Nephrology and Hypertension in [place], [place] [address] [place] [address] Abhijit Phelps Jr., D.O. Chronic Kidney Disease (CKD), Stage 3b Glomerular Filtration Rate (GFR) 30 To 44 (HCC) (Primary Dx); Hypertensive Chronic Kidney Disease With Stage 1 Through Stage 4 Chronic Kidney Disease, Or Unspecified Chronic Kidney Disease; Diabetes Mellitus Type 2 With Diabetic Nephropathy (HCC); Hyperparathyroidism Renal Secondary (HCC); Anemia Of Chronic Renal Disease from Last 3 Months Medications Medication Sig Dispensed Refills Start Date End Date Status aspirin [address] tablet Take 81 mg by mouth daily. Active losartan (COZAAR) 50 mg tablet Take 0.5 tablets by mouth daily. 10/10/2015 Active metoprolol succinate (TOPROL-XL) 25 mg 24 hr tablet Take 1 tablet by mouth 2 (two) times a day. 10/10/2015 Active budesonide-formo teroL (SYMBICORT) 80-4.5 mcg/actuation inhaler Inhale 2 puffs. Active nitroglycerin (NITROSTAT) 0.[address] 0.4 mg under the tongue. 10/04/2015 Active rosuvastatin (CRESTOR) 40 mg tablet Take 40 mg by mouth. 02/21/2021 Active cyanocobalamin-s alcaprozat sod 1,000-100 mcg-mg tablet Take 500 mcg by mouth daily. Active clopidogreL (PLAVIX) 75 mg tablet Take 75 mg by mouth daily. 08/18/2022 Active metFORMIN (Glucophage) 500 mg tablet Take 1 tablet (500 mg total) by mouth daily with morning meal. 90 tablet 3 04/20/2024 04/20/2025 Active furosemide (Lasix) 20 mg tabletIndication s:edema Take 1 tablet (20 mg total) by mouth as directed Indications: visible water retention. Every other day, May use daily if fluid accumulates 90 tablet 3 04/20/2024 04/20/2025 Active furosemide (LASIX) 20 mg tabletIndication s:edema Take 20 mg by mouth as directed Indications: visible water retention. Every other day, May use daily if fluid accumulates 10/06/2020 04/20/2024 Discontinu e d(Reorder) Active Problems Problem Noted Date Diagnosed Date Chronic Kidney Disease (CKD) , Stage 3b Glomerular Filtration Rate (GFR) 30 To 44 04/20/2024 Diabetes Mellitus Type 2 With Diabetic Nephropat hy 01/16/2022 Hypertensive Chronic Kidney Disease With Stage 1 Through Stage 4 Chronic Kidney Disease, Or Unspecified Chronic Kidney Disease 01/16/2022 Post Traumatic Osteoarthritis Knee Left 01/17/20 Hyperparathyroidism Renal Secondary 01/16/2022 Anemia Of Chronic Renal Disease 01/16/2022 Social History Tobacco Use Types Packs/Day Years Used Date Smoking Tobacco: Never Assessed Nutrition Answer Date Recorded Nutrition: EVOO Fat Source Unknown 01/04 Nutrition: Servings of Fruits/Vegetables per Day Not on file 01/04/2022 Dental Answer Date Recorded Dental: Regular Dentist Unknown 01/05/20 22 Sex and Gender Information Value Date Recorded Sex Assigned at Not on file Gender Identity Not on file Sexual Orientation Not on file Last Filed Vital Signs Vital Sign Reading Time Taken Comments Blood Pressure 116/72 04/20/2024 2:05 PM CDT Pulse 56 04/20/2024 2:05 PM CDT Temperature - - Respiratory Rate 16 10/15/2022 1:36 PM CDT Oxygen Saturation - - Inhaled Oxygen Concentration - - Weight 90.7 kg (199 lb 15.3 oz) 04/20/2024 2:05 PM CDT Height 164.4 cm (5' 4.72) 04/20/2024 2:05 PM CD T Body Mass Index 33.56 04/20/2024 2:05 PM CDT Plan of Treatment Not on file
--- OUTSIDE RECORDS SUMMARY | 2024-04-20 19:02 | XMS_ITS | Encounter Summary ---
Author Organization [facility] Address [address] [place] [address] Care Team Providers Care Strap Sewer Name Role Phone Unavailable Primary Care Provider Unavailabl e Reason for Visit * Appointment Request (Routine) - Closed Specialty Diagnoses / Procedures Referred By Ainsley t Referred To Contact Nephrology and Hypertension Referral ID Status Reason Start Date Expiration Date Visits Re quested Visits Authorized [id number] Closed 03/26/2024 03/26/2025 1 1 Encounter Details Date Type Department Care Team (Latest Contact Info) Description 04/20/2024 2:00 PM CDT External Outreach Division of Nephrology and Hypertension in [place], [place] [address] [place] [address] Abhijit Phelps Jr., D.O. [address] [place] [address] Chronic Kidney Disease (CKD), Stage 3b Glomerular Filtration Rate (GFR) 30 To 44 (HCC) (Primary Dx); Hypertensive Chronic Kidney Disease With Stage 1 Through Stage 4 Chronic Kidney Disease, Or Unspecified Chronic Kidney Disease; Diabetes Mellitus Type 2 With Diabetic Nephropathy (HCC); Hyperparathyroidism Renal Secondary (HCC); Anemia Of Chronic Renal Disease Social History Tobacco Use Types Packs/Day Years Used Date Smoking Tobacco: Never Assessed Nutrition Answer Date Recorded Nutrition: EVOO Fat Source Unknown 01/04 Nutrition: Servings of Fruits/Vegetables per Day Not on file 01/04/2022 Dental Answer Date Recorded Dental: Regular Dentist Unknown 01/05/20 Sex and Gender Information Value Date Recorded [...] Mass Index 33.56 04/20/2024 2:05 PM CDT documented in this encounter Progress Notes * Abhijit Phelps Jr., D.O. - 04/20/2024 2:00 PM CDT Referring Provider: DR Myers SUBJECTIVE REASON FOR VISIT [place] out reach CKD [facility] Follow-up regards diabetes hypertension and CKD with proteinuria HISTORY OF PRESENT ILLNESS Mr. Bautista is a 84 y.o. male who presents with worsening lower extremity neuropathy, volume overload. Appreciate several months ago we discontinued his oral hypoglycemic agents on the background of hypoglycemic events and normalized hemoglobin A1c. He had been on metformin. He admittedly eats quite abit of high sugar foods. He is complaining of a rock like sensation in his forefoot, which is very u ncomfortable. He has seen numerous providers regards this. Today let him know his hemoglobin A1c is 8.4%. His blood pressure is excellent without orthostatic issues, although he is developing lower extremity swelling. This gets bad enough by the end of the day that his socks are making deep indentations. No other constitutional complaints no fevers no chills intermittently gets some short sharp chest pains. No past medical history on file. Current Outpatient Medications: furosemide (Lasix) 20 mg tablet, Take 1 tablet (20 mg total) by mouth as directed Indications: visible water retention. Every other day, May use daily if fluid accumulates, Disp: 90 tablet, Rfl: [address] tablet, Take 81 mg by mouth daily., Disp: , Rfl: budesonide-formoteroL (SYMBICORT) 80-4.5 mcg/actuation inhaler, Inhale 2 puffs., Disp: , Rfl: clopidogreL (PLAVIX) 75 mg tablet, Take 75 mg by mouth daily., Disp: , Rfl: cyanocobalamin-salcaprozat sod 1,000-100 mcg-mg tablet, Take 500 mcg by mouth daily., Disp: , Rfl: losartan (COZAAR) 50 mg tablet, Take 0.5 tablets by mouth daily., Disp: , Rfl: metFORMIN (Glucophage) 500 mg tablet, Take 1 tablet (500 mg total) by mouth daily with morning meal., Disp: 90 tablet, Rfl: 3 metoprolol succinate (TOPROL-XL) 25 mg 24 hr tablet, Take 1 tablet by mouth 2 (two) times a day., Disp: , Rfl: nitroglycerin (NITROSTAT) 0.4 mg SL tablet, Place 0.4 mg under the tongue., Disp: , Rfl: rosuvastatin (CRESTOR) 40 mg tablet, Take 40 mg by mouth., Disp: , Rfl: REVIEW OF SYSTEMS All other systems reviewed and are negative. OBJECTIVE BP 116/72 Pulse (!) 56 Ht 164.4 cm Wt 90.7 kg BMI 33.56 kg/m?? PHYSICAL EXAMINATION General: Awake, alert, oriented. HEENT: SOBEIDA, EOMI, mucous membranes moist, no oral lesions. Neck: No masses, no bruits. Lungs: Clear to auscultation. Heart: Regular rate and rhythm. No ectopy, 2/6 systolic ejection murmur right upper sternal edge Abdomen: Soft, non-tender. Extremities: No cyanosis, no clubbing, +1 pitting ankle edema bilaterally. Neuro: Cranial nerves intact. Gait is normal, strength grossly normal. Skin: No suspicious lesions identified. Psychiatric: Normal affect. DIAGNOSTICS Note normal serum creatinine hemoglobin 12.5 hemoglobin A1c 8.4% ASSESSMENT / PLAN #1 Chronic Kidney Disease (CKD), Stage 3b Glomerular Filtration Rate (GFR) 30 To 44 (HCC) While his creatinine is normal at 1.2 I suspect this is on the background of dilutional effect. Going forward: 1. We need to gain control his diabetes, we will initiate metformin 500 mg orally daily, with a goal glycosylated hemoglobin less than 8% 2. I have asked him to cut back on his sugar intake 3. Goal blood pressure less than 130s over 80s which he has achieved 4. No salt 5. Return to clinic in 2 months 6. I have asked him to increase his diuretic dose to 20 mg daily for the next week and then returned back to every other day #2 Hypertensive Chronic Kidney Disease With Stage 1 Through Stage 4 Chronic Kidney Disease, Or Unspecified Chronic Kidney Disease Please see above his blood pressure is well controlled #3 Diabetes Mellitus Type 2 With Diabetic Nephropathy (HCC) I re-initiated metformin #4 Hyperparathyroidism Renal Secondary (HCC) Calcium phosphorus acceptable #5 Anemia Of Chronic Renal Disease Hemoglobin excellent Total time: 40 minutes Counseling Time: 30 minutes Abhijit Phelps Jr., D.O. 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
--- OUTSIDE RECORDS SUMMARY | 2024-04-20 19:02 | XMS_ITS ---
Author Organization [facility] Address [address] [place] [address] Care Team Providers Care Utility Bagger Name Role Phone Unavailable Unavailable Unavailable Surgery Details Not on file Complications Check Surgery Details section. Procedure Estimated Blood Loss Check Surgery Details section. Procedure Findings Check Surgery Details section. Procedure Specimens Taken Check Surgery Details section.
--- OUTSIDE RECORDS SUMMARY | 2024-04-20 19:02 | XMS_ITS | Clinical Summary ---
Author Organization [facility] Address [address] [place] [address] Care Team Providers Care Pewter Fabricator Name Role Phone Unavailable Primary Care Provider Unavailabl e Source Comments Patient records contain information from all sites at [facility]. For routine questions regarding patient records, call [phone] during business hours, M-F 8:00 AM - 5:00 PM Central Time. Record requests for emergency care only can be directed to [phone] at any time.[facility] Medications Medication Sig Dispensed Refills Start Date [...] Chronic Renal Disease 01/16/2022 Encounters Date Type Department Care Team Description 04/20/2024 2:00 PM CDT External Outreach Division of Nephrology and Hypertension in [place] [address] [place] [address] Abhijit Phelps Jr., D.O. Chronic Kidney Disease (CKD), Stage 3b Glomerular Filtration Rate (GFR) 30 To 44 (HCC) (Primary Dx); Hypertensive Chronic Kidney Disease With Stage 1 Through Stage 4 Chronic Kidney Disease, Or Unspecified Chronic Kidney Disease; Diabetes Mellitus Type 2 With Diabetic Nephropathy (HCC); Hyperparathyroidism Renal Secondary (HCC); Anemia Of Chronic Renal Disease from Last 3 Months Social History Tobacco [...] 04/20/2024 2:05 PM CDT Plan of Treatment Health Maintenance Due Date Last Done Comments Diabetic Office Visit with F oot Exam 1938 Dilated Eye Exam 1940 Urine Albumin 1940 Hepatitis B Vaccines (1 of 3 - Risk 3-dose series) 1998 DTaP,Tdap,and Td Vaccines (1 - Tdap) 05/08/2014 05/07/2014 Hemoglobin A1C 03/07/2022 09/07/2021, 09/13/2020 Creatinine Level (Kidney Fun ction Test) 06/19/2023 06/19/2022, 09/07/2021, 10/01/2019, Additional history exists Potassium Level 06/19/2023 06/19/2022, 02/0 10/2021, 10/01/2019, Additional history exists Sodium Level 06/19/2023 06/19/2022, 02/2 02/2020, 12/03/2018 Depression Screening (Annual PHQ-2) 08/05/2023 Fall Risk Screen (Annual) 08/05/2023 COVID-19 Vaccine (5 - 2022-2 4 season) 2024 12/23/2021, 05/21/2021, 10/08/2020, Additional history exists Influenza Vaccine (#1) 2024 3, 05/13/2022, 05/13/2021, Additional history exists Pneumococcal vaccine (65+ years) Completed 05/07/20 16, 08/14/2014 Zoster Vaccines Completed 10/20/2018, 08/24/2018 8 ([place]) [address] [place] [address]
--- OUTSIDE RECORDS SUMMARY | 2024-04-20 19:02 | XMS_ITS | Clinical Summary ---
Author Organization [facility] Address [place], [place] [address] Care Team Providers Care Homicide Squad Lieutenant Name Role Phone Unknown, Doctor Primary Care Provider Unavailabl e Allergies Active Allergy Reactions Criticality Noted Date Comments Penicillins Rash 11/12/2013 Medications Medication Sig Dispensed Refills Start Date End Date Status aspirin enteric coated 81 mg tablet Take 1 tablet by mouth once daily with a meal. 0 11/12/2013 Active b complex vitamins (VITAMIN B COMPLEX) capsule Take 1 capsule by mouth once daily. 0 11/12/2013 Active albuterol (PROVENTIL) 0.083 % neb solution Inhale 3 mL via a nebulizer every 6 hours if needed for Shortness Of Breath. 0 11/12/2013 Active budesonide-formoterol (SYMBICORT) 80-4.5 mcg/actuation (80-4.5 mcg each actuation) inhalerIndications:Cou gh Inhale 2 Puffs by mouth 2 times daily. 1 Inhaler 5 02/01/2015 Active metoprolol succinate (TOPROL XL) 25 mg Sustained-Release tablet Take 1 tablet by mouth 2 times daily. 0 10/10/2015 Active losartan (COZAAR) 50 mg tablet Take 1 tablet by mouth once daily. 0 10/10/2015 Active rosuvastatin (CRESTOR) 20 mg tablet Take 1 tablet by mouth at bedtime. 0 10/10/2015 Active pantoprazole (PROTONIX) 40 mg delayed-release tablet Take 1 tablet by mouth once every other day. 0 10/10/2015 Active NITROSTAT 0.4 mg sublingual tablet 3 10/04/2015 Active clopidogreL (Plavix) 75 mg tabletIndications:ASCV D (arteriosclerotic cardiovascular disease) Take 1 Tablet (75 mg) by mouth once daily. 90 Tablet 3 08/13/2023 Active Immunizations Name Administration Dates Next Due Influenza, High-dose Inactivated 04/21/2015 Pneumococcal conj 13-Valent (Prevnar 13) 015 Td (Age >=7 Years) 05/07/2014 Social History Tobacco Use Types Packs/Day Years Used Date Smoking Tobacco: Former Cigarettes Comments:quit 25-30 years ag o Alcohol Use Standard Drinks/Week Comments Not Asked 0 (1 standard drink = 0.6 oz pur e alcohol) Social Connections Answer Date Recorded Frequency of Communication with Friends and Fami ly Not on file 08/17/2022 Sex and Gender Information Value Date Recorded Sex Assigned at Not on file Gender Identity Not on file Sexual Orientation Not on file Obstetrics History Last Filed Vital Signs Vital Sign Reading Time Taken Comments Blood Pressure 118/56 10/10/2015 1:43 PM PAPERHANGER AND PAINTER Pulse 72 10/10/2015 1:43 PM PAPERHANGER AND PAINTER Temperature - - Respiratory Rate 18 11/12/2013 3:23 PM CDT Oxygen Saturation 96% 11/12/2013 3:23 PM CDT Inhaled Oxygen Concentration - - Weight 98.4 kg (217 lb) 10/10/2015 1:43 PM PAPERHANGER AND PAINTER Height 166.4 cm (5' 5.5) 10/10/2015 1:43 PM PAPERHANGER AND PAINTER Body Mass Index 35.56 10/10/2015 1:43 PM PAPERHANGER AND PAINTER Plan of Treatment Health Maintenance Due Date Last Done Comments Tdap 1949 Zoster (shingles) series for age 50+ (1 of 2) 01/26/1988 RSV vaccine for adults or (1 - 1-dose 60+ series) 1998 Medicare Wellness for age 65+ 2003 Pneumococcal series for age 65+ (2 of 2 - PPSV23 or PCV20) 08/14/2015 08/14/2014 BMI (ht and wt on same day) for age 18+ 10/09/2016 10/10/2015 Depression screening for age 12+ 10/09/2016 10/10/19 16 COVID-19 vaccine series (2022- season) 2024 07/08/2023, 12/23/2021, 05/21/2021, Additional history exists Influenza for age 65+ 04/05/2024 04/21/2015 Tetanus booster 05/07/2024 05/07/2014 Care Teams Homicide Squad Lieutenant Relationship Specialty Start Date End Date Unknown, Doctor . PCP - General 04/25/18
== END 2024-04-16 10:58 | disposition home or self-care (01) ==
LOC: NFLDREF 04-20 18:57
PROVIDERS: PCP Family Medicine; Referring Provider Family Medicine; Visit Provider Internal Medicine Nephrology
DX: E11.21 Type 2 diabetes mellitus with diabetic nephropathy; I12.9 Hypertensive chronic kidney disease with stage 1 through stage 4 chronic kidney disease, or unspecified chronic kidney disease; N18.32 Chronic kidney disease, stage 3b; N25.81 Secondary hyperparathyroidism of renal origin; D63.1 Anemia in chronic kidney disease; E78.5 Hyperlipidemia, unspecified; R82.90 Unspecified abnormal findings in urine; Z79.84 Long term (current) use of oral hypoglycemic drugs
CPT/HCPCS: 80061; 80069; 82043; 82570; 82728; 83540; 83550; 83970; 84450; 84460; 84550; 87070; 87075; 87086; 87205

== ENCOUNTER 2024-06-05 12:41 | Outpatient (CLI) | payer MEDICARE, SELFPAY ==
--- OUTSIDE RECORDS SUMMARY | 2024-06-05 12:45 | XMS_ITS | Referral Summary ---
Author Organization [place] Address [facility] [place] [address] Care Team Providers Care Sourcer Name Role Phone Zen Rousseau MD Unavailable Ronnie Myers MD Primary Care Provider [phone] Perry Marie DPM Unavailable [phone] Allergies Active Allergy Reactions Criticality Noted Date Comments Fish Oil Other (See Comments) 09/30/2014 Bloody noses Penicillins Itching 05/24/2014 Medications pantoprazole (PROTONIX) 40 MG enteric coated tablet Take 40 mg by mouth every 48 hours Active budesonide-formot darwin (SYMBICORT) 80-4.5 MCG/ACT Inhaler Inhale 2 puffs into the lungs 2 times daily Active aspirin 81 MG tablet Take 81 mg by mouth daily Active Cyanocobalamin (VITAMIN B 12 PO) Take 500 mcg by mouth daily Active nitroglycerin (NITROSTAT) 0.4 MG SL tabletIndications :Coronary artery disease involving [place] coronary artery of [place] heart without angina pectoris Place 1 tablet (0.4 mg) under the tongue every 5 minutes as needed for chest pain 25 tablet 3 6 Active rosuvastatin (CRESTOR) 40 MG tabletIndications :Mixed hyperlipidemia,Co ronary artery disease involving [place] coronary artery of [place] heart without angina pectoris Take 1 tablet (40 mg) by mouth daily 90 tablet 2 1 Active furosemide (LASIX) 20 MG tabletIndications :Essential hypertension,Katerine nary artery disease involving [place] coronary artery of [place] heart without angina pectoris Take 1 tablet (20 mg) by mouth daily 90 tablet 3 2 Active albuterol (PROAIR HFA/PROVENTIL HFA/VENTOLIN HFA) 108 (90 Base) MCG/ACT inhaler Inhale 1-2 puffs into the lungs every 6 hours as needed for shortness of breath / dyspnea or wheezing Active ferrous gluconate (FERGON) 324 (38 Fe) MG tablet Take 324 mg by mouth daily (with breakfast) Active metoprolol tartrate (LOPRESSOR) 25 MG tabletIndications :Essential hypertension Take 1 tablet (25 mg) by mouth 2 times daily 180 tablet 3 Active losartan (COZAAR) 50 MG tabletIndications :Essential hypertension Take 0.5 tablets (25 mg) by mouth daily -Due for follow up with Cardiology, please call [phone] to arrange 90 tablet 3 Active Active Problems Problem Noted Date Diagnosed Date Mixed hyperlipidemia 12/08/2015 Aortic valve disorder 10/04/2015 High cholesterol Hypertension CAD (coronary artery disease) Overview (09/27/2014): mild/mod disease in RCA, INGRID to OM2 Past history of myocardial infarction Overview (09/27/2014): 06/2010 Non QWave Stented coronary artery SOB [...] Recorded Sex Assigned at Not on file Legal Sex Male 3:20 AM STUDENT UNION CONSULTANT Gender Identity Not on file Sexual Orientation Not on file Last Filed Vital Signs Vital Sign Reading Time Taken Comments Blood Pressure 150/73 06/10/2023 3:27 PM STUDENT UNION CONSULTANT Pulse 57 06/10/2023 3:27 PM STUDENT UNION CONSULTANT Temperature 36.7 ??C (98.1 ??F) 06/19/2022 10:[address] Respiratory Rate 18 06/19/2022 10:58 AM STUDENT UNION CONSULTANT Oxygen Saturation 100% 06/19/2022 10:58 AM STUDENT UNION CONSULTANT Inhaled Oxygen Concentration - - Weight 90.7 kg (200 lb) 06/10/2023 3:27 PM STUDENT UNION CONSULTANT Height 167.6 cm (5' 6) 06/10/2023 3:27 PM STUDENT UNION CONSULTANT Body Mass Index 32.28 06/10/2023 3:27 PM STUDENT UNION CONSULTANT Plan of Treatment Not on file Procedures Procedure Name Priority Date/Time Associated Diagnosis Comments COMPREHENSIVE METABOLIC PANEL STAT 06/19/2022 4:29 PM STUDENT UNION CONSULTANT LIPID PROFILE Routine 09/13/2020 from Last 3 Months or Most Recently Relevant to Health Maintenance Results * (ABNORMAL) Comprehensive metabolic panel (06/19/2022 4:29 PM STUDENT UNION CONSULTANT) Sodium 135(L) 136 - 145 mmol/L 06/19/2022 5:20 PM [facility] Potassium 4.1 3.4 - 5.3 mmol/L 06/19/2022 5:20 PM [facility] Chloride 96(L) 98 - 107 mmol/L 06/19/2022 5:20 PM [facility] Carbon Dioxide (CO2) 28 22 - 29 mmol/L 06/19/2022 5:20 PM [facility] Anion Gap 11 7 - 15 mmol/L 06/19/2022 5:20 PM [facility] Urea Nitrogen 9.0 8.0 - 23.0 mg/dL 06/19/2022 5:20 PM [facility] Creatinine 1.11 0.67 - 1.17 mg/dL 06/19/2022 5:20 PM [facility] Calcium 9.2 8.8 - 10.2 mg/dL 06/19/2022 5:20 PM [facility] Glucose 117(H) 70 - 99 mg/dL 06/19/2022 5:20 PM [facility] Alkaline Phosphatase 79 40 - 129 U/L 06/19/2022 5:20 PM [facility] AST 24 10 - 50 U/L 06/19/2022 5:20 PM [facility] Comment:Specimen is hemolyze d which can falsely elevate AST. Analysis of a non-hemolyzed specimen may result in a lower value. ALT 14 10 - 50 U/L 06/19/2022 5:20 PM [facility] Protein Total 6.9 6.4 - 8.3 g/dL 06/19/2022 5:20 PM STUD[facility] UNION CONS[facility] Albumin 3.6 3.5 - 5.2 g/dL 06/19/2022 5:20 PM [facility] Bilirubin Total 1.3(H) <=1.2 mg/dL 06/19/2022 5:20 PM STUD[facility] UNION CONS[facility] GFR Estimate 65 >60 mL/min/1.7 3m2 06/19/2022 5:20 PM [facility] CONS[facility] Comment:Effective July 062020 eGFRcr in adults is calculated using the 2020 CKD-EPI creatinine equation which includes age and gender (Susana et al., NEJ, DOI: 10.1056/CEGZyb2493475) Blood VENOUS LINE / Unknown Venipuncture / Unknown 06/19/2022 4:29 PM STUDENT UNION CONSULTANT 06/19/2022 4:37 PM STUDENT UNION CONSULTANT us Kris Lacey MD LAB - BLOOD ORDERABLES Final Result LABORATORY [facility] [address] Lab (1st floor, no room number) [place] [address], [place] [phone] * Lipid Profile (09/13/2020) Cholesterol 184 90 - 200 mg/dL [facility] Triglycerides 100 40 - 197 mg/dL [facility] HDL Cholesterol 79 >=40 mg/dL [facility] LDL Cholesterol Calculated 85 <=100 mg/dL [facility] Non HDL Cholesterol [facility] Blood specimen (specimen) 09/13/2020 us Patient Reported LAB - BLOOD ORDERABLES Final Re sult [facility] [address] [place] [address], [facility] [phone] from Last 3 Months or Most Recently Relevant to Health Maintenance Insurance [facility] MEDICARE [facility] MEDICARE Advance Directives For more information, please contact: [phone] * Full Code (Latest Code Status on File) Date Activated Date Inactivated Comments 11/11/2016 10:06 AM 08/26/2019 7:12 AM * Full Code Date Activated Date Inactivated Comments 11/10/2016 8:03 PM 11/11/2016 10:06 AM Care Teams Sourcer Relationship Specialty Start Date End Date Ronnie Myers MD [address] [place] [address] PCP - General Family Medicine 09/11/21 Zen Rousseau MD [address] [place] [place] [address] Family Practice 07/31/12 Perry Marie DPM [address] [address] Assigned Musculoskeletal Provider 06/29/23
--- OUTSIDE RECORDS SUMMARY | 2024-06-05 12:45 | XMS_ITS | Clinical Summary ---
Author Organization [place] Address [facility] [address] Care Team Providers Care Digital Asset Specialist Name Role Phone Zen Rousseau MD Unavailable [phone] Ronnie Myers MD Primary Care Provider [phone] Perry Marie DPM Unavailable [phone] Allergies Active Allergy Reactions Criticality Noted Date [...] MG SL tabletIndications :Coronary artery disease involving [place] coronary artery of [place] heart without angina pectoris Place 1 tablet (0.4 mg) under the tongue every 5 minutes as needed for chest pain 25 tablet 3 6 Active rosuvastatin (CRESTOR) 40 MG tabletIndications :Mixed hyperlipidemia,Co ronary artery disease involving [place] coronary artery of [place] heart without angina pectoris Take 1 tablet (40 mg) by mouth daily 90 tablet 2 1 Active furosemide (LASIX) 20 MG tabletIndications :Essential hypertension,Katerine nary artery disease involving [place] coronary artery of [place] heart without angina pectoris Take 1 tablet [...] for follow up with Cardiology, please call [phone] to arrange 90 tablet 3 Active Active [...] on file Legal Sex Male 3:20 AM GLAZIER HELPER Gender Identity Not on file Sexual Orientation Not on file Last Filed Vital Signs Vital Sign Reading Time Taken Comments Blood Pressure 150/73 06/10/2023 3:27 PM GLAZIER HELPER Pulse 57 06/10/2023 3:27 PM GLAZIER HELPER Temperature 36.7 ??C (98.1 ??F) 06/19/2022 10:[address] Respiratory Rate 18 06/19/2022 10:58 AM GLAZIER HELPER Oxygen Saturation 100% 06/19/2022 10:58 AM GLAZIER HELPER Inhaled Oxygen Concentration - - Weight 90.7 kg (200 lb) 06/10/2023 3:27 PM GLAZIER HELPER Height 167.6 cm (5' 6) 06/10/2023 3:27 PM GLAZIER HELPER Body Mass Index 32.28 06/10/2023 3:27 PM GLAZIER HELPER Plan of Treatment Health Maintenance Due Date Last Done Comments ADVANCE CARE PLANNING 1940 ANNUAL REVIEW OF HM ORDERS 1940 FALL RISK ASSESSMENT 2003 MEDICARE ANNUAL WELLNESS VISIT 2003 RSV VACCINE (1 - 1-dose 75+ series) 2013 DTAP/TDAP/TD IMMUNIZATION (1 - Tdap) 05/08/2014 05/07/2014 LIPID 09/13/2021 09/13/2020, 05/06, 06/04/2017, Additional history exists BMP 06/19/2023 06/19/2022, /0 10/2021, 10/01/2019, Additional history exists PHQ-2 (once per calendar [...] COMPREHENSIVE METABOLIC PANEL STAT 06/19/2022 4:29 PM GLAZIER HELPER LIPID PROFILE Routine 09/13/2020 from Last 3 Months or Most Recently Relevant to Health Maintenance Results * (ABNORMAL) Comprehensive metabolic panel (06/19/2022 4:29 PM GLAZIER HELPER) Sodium 135(L) 136 - 145 mmol/L 06/19/2022 5:20 PM GLAZIER HELPER [facility] Potassium 4.1 3.4 - 5.3 mmol/L 06/19/2022 5:20 PM GLAZIER HELPER [facility] Chloride 96(L) 98 - 107 mmol/L 06/19/2022 5:20 PM GLAZIER HELPER [facility] Carbon Dioxide (CO2) 28 22 - 29 mmol/L 06/19/2022 5:20 PM GLAZIER HELPER [facility] Anion Gap 11 7 - 15 mmol/L 06/19/2022 5:20 PM GLAZIER HELPER [facility] Urea Nitrogen 9.0 8.0 - 23.0 mg/dL 06/19/2022 5:20 PM GLAZIER HELPER [facility] Creatinine 1.11 0.67 - 1.17 mg/dL 06/19/2022 5:20 PM GLAZIER HELPER [facility] Calcium 9.2 8.8 - 10.2 mg/dL 06/19/2022 5:20 PM GLAZIER HELPER [facility] Glucose 117(H) 70 - 99 mg/dL 06/19/2022 5:20 PM GLAZIER HELPER [facility] Alkaline Phosphatase 79 40 - 129 U/L 06/19/2022 5:20 PM GLAZIER HELPER [facility] AST 24 10 - 50 U/L 06/19/2022 5:20 PM GLAZIER HELPER LAB[facility] Comment:Specimen is hemolyze d which can falsely elevate AST. Analysis of a non-hemolyzed specimen may result in a lower value. ALT 14 10 - 50 U/L 06/19/2022 5:20 PM GLAZIER HELPER [facility] Protein Total 6.9 6.4 - 8.3 g/dL 06/19/2022 5:20 PM GLAZIER HELPER [facility] Albumin 3.6 3.5 - 5.2 g/dL 06/19/2022 5:20 PM GLAZIER HELPER [facility] Bilirubin Total 1.3(H) <=1.2 mg/dL 06/19/2022 5:20 PM GLAZIER HELPER LAB[facility]ORY GFR Estimate 65 >60 mL/min/1.7 3m2 06/19/2022 5:20 PM GLAZIER HELPER [facility] Comment:Effective July 062020 eGFRcr in adults is calculated using the 2020 CKD-EPI creatinine equation which includes age and gender (Susana et al., NEJM, DOI: 10.1056/DOFMgx3398263) Blood VENOUS LINE / Unknown Venipuncture / Unknown 06/19/2022 4:29 PM GLAZIER HELPER 06/19/2022 4:37 PM GLAZIER HELPER us Kris Lacey MD LAB - BLOOD ORDERABLES Final Result LABORATORY [facility] [address] Lab (1st floor, no room number) [place] [address], [facility] [phone] * Lipid Profile (09/13/2020) Cholesterol 184 90 - 200 mg/dL [facility] Triglycerides 100 40 - 197 mg/dL [facility] HDL Cholesterol 79 >=40 mg/dL [facility] LDL Cholesterol Calculated 85 <=100 mg/dL [facility] Non HDL Cholesterol [facility] Blood specimen (specimen) 09/13/2020 Patient Reported LAB - BLOOD ORDERABLES Final Re sult [facility] [address] [place] [address], [facility] [phone] from Last 3 Months or Most Recently Relevant to Health Maintenance Insurance [facility] MEDICARE [facility] MEDICARE Advance Directives For more information, please contact: [phone] * Full Code (Latest Code Status on File) Date Activated Date Inactivated Comments 11/11/2016 10:06 AM 08/26/2019 7:12 AM * Full Code Date Activated Date Inactivated Comments 11/10/2016 8:03 PM 11/11/2016 10:06 AM Care Teams Digital Asset Specialist Relationship Specialty Start Date End Date Ronnie Myers MD [address] [phone] PCP - General Family Medicine 09/11/21 Zen Rousseau MD [address] [phone] Family Practice 07/31/12 Perry Marie DPM [address] [address] Assigned Musculoskeletal Provider 06/29/23
--- OUTSIDE RECORDS SUMMARY | 2024-06-05 12:45 | XMS_ITS | Encounter Summary ---
Author Organization [place] Address [address] [place] [address]. [place] [address] Care Team Providers Care Assistant Secretary Name Role Phone Zen Rousseau MD Unavailable [phone] Senthil Mckeon MD Primary Care Provider + Ta Trimble MD Unavailable [phone] Ronnie Myers MD Primary Care Provider [phone] Nile Mali E TRAINING CONSULTANT SALES FORCE ADMINISTRATOR Unavailable [phone] Perry Marie DPM Unavailable [phone] Reason for Visit * Reason Onset Date Comments Appointment 09/08/2021 Calling to sched ule appt Encounter Details Date Type Department Care Team (Late st Contact Info) Description 09/08/2021 Telephone [facility] Heart [facility] [id number] [place] [address] [address] [place] [address] Nile Mali E, TRAINING CONSULTANT SALES FORCE ADMINISTRATOR [address] [place], [place] [address] Appointment (Calling to schedule appt) Social History Tobacco Use Types Packs/Day Years Used Date Smoking Tobacco: Former Smokeless Tobacco: Never Comments:quit about 30 years ago Alcohol Use Standard Drinks/Week Comments Yes 0 (1 standard drink = 0.6 oz pur e alcohol) rare Sex and Gender Information Value Date Recorded Sex Assigned at Not on file Legal Sex Male 3:20 AM CUTTING INSPECTOR Gender Identity Not on file Sexual Orientation [...] to: Other: Cardiology Travel Screening: Not Applicable ING INSPECTOR documented in this encounter Plan of Treatment Not on file documented as of this encounter Visit Diagnoses Not on filedocumented in this encounter Care Teams Assistant Secretary Relationship Specialty Start Date End Date Senthil Mckeon MD [address] [place] [phone] PCP - General 12/03/18 09/10/21 Ronnie Myers MD [address] [place] [phone] PCP - General Family Medicine 09/11/21 Zen Rousseau MD [address] [place] [phone] Family Practice 07/31/12 Ta Trimble MD [address] [place] [address] Assigned Heart and Vascular Provider 05/27/20 10/07/21 Mali Dowd APRN SALES FORCE ADMINISTRATOR [address] [place] [address] Assigned Heart and Vascular Provider 10/08/21 04/05/23 Perry Marie DPM [address] [address] Assigned Musculoskeletal Provider 06/29/23 documented as of this encounter
--- OUTSIDE RECORDS SUMMARY | 2024-06-05 12:46 | XMS_ITS | Clinical Summary ---
Author Organization [facility] Address [place], [place] [address] Care Team Providers Care Hairspring Ii Inspector Name Role Phone Unknown, Doctor Primary Care [...] Comments Blood Pressure 118/56 10/10/2015 1:43 PM COOK CHILL TECHNICIAN Pulse 72 10/10/2015 1:43 PM COOK CHILL TECHNICIAN Temperature - - Respiratory Rate 18 11/12/2013 3:23 PM CDT Oxygen Saturation 96% 11/12/2013 3:23 PM CDT Inhaled Oxygen Concentration - - Weight 98.4 kg (217 lb) 10/10/2015 1:43 PM COOK CHILL TECHNICIAN Height 166.4 cm (5' 5.5) 10/10/2015 1:43 PM COOK CHILL TECHNICIAN Body Mass Index 35.56 10/10/2015 1:43 PM COOK CHILL TECHNICIAN Plan of Treatment Health Maintenance Due Date Last Done Comments Tdap 1949 Zoster (shingles) series for age 50+ (1 of 2) 01/26/1988 Medicare Wellness for age 65+ 2003 RSV vaccine for adults or (1 - 1-dose 75+ series) 2013 Pneumococcal series for age 65+ (2 of 2 - PPSV23 or PCV20) 08/14/2015 08/14/2014 BMI (ht and wt on same day) for age 18+ 10/09/2016 10/10/2015 Depression screening for age 12+ 10/09/2016 10/10/19 16 COVID-19 vaccine series (2023- season) 2024 07/08/2023, 12/23/2021, 05/21/2021, Additional history exists Influenza for age 65+ 04/05/2024 04/21/2015 Tetanus booster 05/07/2024 05/07/2014 Care Teams Hairspring Ii Inspector Relationship Specialty Start Date End Date Unknown, Doctor . PCP - General 04/25/18
--- OUTSIDE RECORDS SUMMARY | 2024-06-05 12:46 | XMS_ITS | Encounter Summary ---
Author Organization [place] Address [address] [place] [address]. [place] [address] Care Team Providers Care Check Pilot Name Role Phone Zen Rousseau MD Unavailable Senthil Mckeon MD Primary Care Provider + Ta Trimble MD Unavailable Ronnie Myers MD Primary Care Provider Mali Dowd APRN COMMUNICABLE DISEASE SPECIALIST Unavailable [phone] Perry Marie DPM Unavailable [phone] Encounter Details Date Type Department Care Team (Late st Contact Info) Description 04/03/2021 External Order Results [facility] [address] [place] [address] Outside, Provider Social History Tobacco Use Types Packs/Day Years Used Date Smoking Tobacco: Former Smokeless Tobacco: Never Comments:quit about 30 years ago Alcohol Use Standard Drinks/Week Comments Yes 0 (1 standard drink = 0.6 oz pur e alcohol) rare Sex and Gender Information Value Date Recorded Sex Assigned at Not on file Legal Sex Male 3:20 AM INDUSTRIAL WELDER Gender Identity Not on file Sexual Orientation [...] CDT Verified by Damion German on 05/03/2021. us Patient Reported LABORATORY Edited Result - Final [facility] NON-INTERFACED (ONBASE SCANS) documented in this encounter Visit Diagnoses Not on filedocumented in this encounter Care Teams Check Pilot Relationship Specialty Start Date End Date Senthil Mckeon MD [address] [place] [phone] PCP - General 12/03/18 09/10/21 Ronnie Myers MD [address] [place] [address] [phone] PCP - General Family Medicine 09/11/21 Zen Rousseau MD [facility] [place] [phone] Family Practice 07/31/12 Ta Trimble MD [address] [place] [address] Assigned Heart and Vascular Provider 05/27/20 10/07/21 Mali Dowd APRN COMMUNICABLE DISEASE SPECIALIST [address] [place] [address] Assigned Heart and Vascular Provider 10/08/21 04/05/23 Perry Marie DPM [address] [facility] [address] [place] [address] Assigned Musculoskeletal Provider 06/29/23 documented as of this encounter
--- OUTSIDE RECORDS SUMMARY | 2024-06-05 12:46 | XMS_ITS | Encounter Summary ---
Author Organization [place] Address [address] [place] [address]. [place] [address] Care Team Providers Care Ship Pilot Dispatcher Name Role Phone Elizabeth Rousseau MD Unavailable [phone] Elizabeth Rousseau MD Primary Care Provider [phone] Mckenzie Mayorga MD Primary Care Provider Luis Alberto Hernandez MD Primary Care Provider Gloria vailable Mckenzie Mayorga MD Primary Care Provider Senthil Mckeon MD Primary Care Provider + Ta Trimble MD Unavailable Ronnie Myers MD Primary Care Provider [phone] Mali Dowd APRN PAINT COATING MACHINE OPERATOR Unavailable [phone] Perry Marie DPM Unavailable [phone] Encounter Details Date Type Department Care Team (Late st Contact Info) Description 08/13/2013 Office Visit-[facility] [place] [address] [facility] [address] [place] [address] Craig Godfrey MD [address] [facility] [address] [place] [address] Social History Tobacco Use Types Packs/Day Years Used Date Smoking Tobacco: Never Assessed Sex and Gender Information Value Date Recorded Sex Assigned at Not on file Legal Sex 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 DATE: 08/13/2013 DONALDO BAUTISTA DATE OF : 1940 AGE: [age] years old Referring Physician: ELIZABETH ROUSSEAU Referring Clinic: [facility] CURRENT DIAGNOSES 1. - Shortness of Breath, 786.05 2. - Chest Pain-unspecified, 786.50 3. - Hyperlipidemia, 272.4 4. Obesity-(<LT>100'), 278.00 5. - Hypertension, 401.1 6. ID-S/P Inferior, 412 7. CAD, 414.00 ALLERGIES Penicillin, [...] minutes prior to Niaspan. 5. Nitrocellulose Aerosol, [place], 1 p.o. PRN as Directed 6. Pravachol [...] ORDERS 1. Return Visit 1 year Craig Ip, M.D. documented in this encounter Plan of Treatment Not on file documented as of this encounter Visit Diagnoses Not on filedocumented in this encounter Care Teams Ship Pilot Dispatcher Relationship Specialty Start Date End Date Elizabeth Rousseau MD [address] [place] [phone] PCP - General Family Practice 08/01/12 08/09/15 Mckenzie Mayorga MD [address] [address] PCP - General 08/10/15 10/09/15 Luis Alberto Hernandez MD [address] [address] PCP - General Family Practice 10/10/15 07/25/16 Mckenzie Mayorga MD [address] [address] PCP - General 07/26/16 12/02/18 Senthil Mckeon MD [address] [address] PCP - General 12/03/18 09/10/21 Ronnie Myers MD [address] [place] [address] PCP - General Family Medicine 09/11/21 Elizabeth Rousseau MD [address] [place] [address] Family Practice 07/31/12 Ta Trimble MD [address] [place], [place] [address] Assigned Heart and Vascular Provider 05/27/20 10/07/21 Mali Dowd APRN PAINT COATING MACHINE OPERATOR [address] [place], [place] [address] Assigned Heart and Vascular Provider 10/08/21 04/05/23 Perry Marie DPM [address] [facility] [address] [place] [address] Assigned Musculoskeletal Provider 06/29/23 documented as of this encounter
--- OUTSIDE RECORDS SUMMARY | 2024-06-05 12:46 | XMS_ITS | Encounter Summary ---
Author Organization [place] Address [address] [place] [address]. [place] [address] Care Team Providers Care Application Systems Engineer Name Role Phone Zen Rousseau MD Unavailable [phone] Zen Rousseau MD Primary Care Provider [phone] Mckenzie Mayorga MD Primary Care Provider [phone] Luis Alberto Hernandez MD Primary Care Provider Gloria vailable Mckenzie Mayorga MD Primary Care Provider [phone] Senthil Mckeon MD Primary Care Provider + Ta Trimble MD Unavailable [phone] Ronnie Myers MD Primary Care Provider [phone] Mali Dowd APRN COMMUNITY HEALTH PLANNING DIRECTOR Unavailable [phone] Perry Marie DPM Unavailable [phone] Encounter Details Date Type Department Care Team (Late st Contact Info) Description 08/07/2010 Office Visit-[facility] [address] [place] [address] Luis Alberto Dunbar MD [address] [place] [address] Social History Tobacco Use Types Packs/Day Years Used Date Smoking Tobacco: Never Assessed Sex and Gender Information Value Date Recorded Sex Assigned at Not on file 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 OR-S/P Inferior, 412 2. - Hypertension, 401.1 3. Obesity-(<LT>100'), 278.00 4. - Hyperlipidemia, 272.4 5. - Shortness of Breath, 786.05 6. - Chest Pain-unspecified, 786.50 7. CAD, 414.00 ALLERGIES Penicillin, Itching and rash MEDICATIONS (prior to changes made today) 1. Advair Diskus 500-50 mcg/Dose Disk with Device 2. Pravachol 80 mg Tablet, 1 p.o. qHS 3. Nitrocellulose Aerosol, [place], 1 p.o. PRN as Directed 4. Aspirin [...] appreciated seeing Mr. Bautista today in the [facility] for the [facility]. 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 I have set him up for a [...] filedocumented in this encounter Care Teams Application Systems Engineer Relationship Specialty Start Date End Date Zen Rousseau MD [address] [place] [phone] PCP - General Family Practice 08/01/12 08/09/15 Mckenzie Mayorga MD [facility] [address] [place] [address] PCP - General 08/10/15 10/09/15 Luis Alberto Hernandez MD [facility] [address], [place] [address] PCP - General Family Practice 10/10/15 07/25/16 Mckenzie Mayorga MD [place] [id number], [place] [address] PCP - General 07/26/16 12/02/18 Senthil Mckeon MD [place] [id number], [place] [address] PCP - General 12/03/18 09/10/21 Ronnie Myers MD [address] [place] [address] PCP - General Family Medicine 09/11/21 Zen Rousseau MD [address] [place] [phone] Family Practice 07/31/12 Ta Trimble MD [address] [place] [address] Assigned Heart and Vascular Provider 05/27/20 10/07/21 Mali Dowd APRN COMMUNITY HEALTH PLANNING DIRECTOR [address] [place] [address] Assigned Heart and Vascular Provider 10/08/21 04/05/23 Perry Marie DPM [address] [facility] [address] [place] [address] Assigned Musculoskeletal Provider 06/29/23 documented as of this encounter
--- OUTSIDE RECORDS SUMMARY | 2024-06-05 12:46 | XMS_ITS | Encounter Summary ---
Author Organization [place] Address [address] [place] [address]. [place] [address] Care Team Providers Care Business Support Liaison Name Role Phone Zen Rousseau MD Unavailable Senthil Mckeon MD Primary Care Provider + Ta Trimble MD Unavailable Ronnie Myers MD Primary Care Provider Mali Dowd APRN BEHAVIORAL HEALTH CASE MANAGER Unavailable [phone] Perry Marie DPM Unavailable [phone] Encounter Details Date Type Department Care Team (Late st Contact Info) Description 09/07/2021 External Order Results [facility] [address] [place] [address] Outside, Provider Social History Tobacco Use Types Packs/Day Years Used Date Smoking Tobacco: Former Smokeless Tobacco: Never Comments:quit about 30 years ago Alcohol Use Standard Drinks/Week Comments Yes 0 (1 standard drink = 0.6 oz pur e alcohol) rare Sex and Gender Information Value Date Recorded Sex Assigned at Not on file Legal Sex Male 3:20 AM ASSISTANT STORE MANAGER Gender Identity Not on file Sexual Orientation Not on file documented as of this encounter Plan of Treatment Not on file documented as of this encounter Procedures Procedure Name Priority Date/Time Associated Diagnosis Comments CBC WITH PLATELETS & DIFFERENTIAL Routine 09/07/2021 3:00 PM ASSISTANT STORE MANAGER RENAL PANEL Routine 09/07/2021 3:00 PM ASSISTANT STORE MANAGER HEPATIC FUNCTION PANEL Routine 3:00 PM ASSISTANT STORE MANAGER ERYTHROCYTE SEDIMENTATION RATE AUTO Routine 09/07/2021 3:00 PM ASSISTANT STORE MANAGER VITAMIN B12 Routine 09/07/2021 3:00 PM ASSISTANT STORE MANAGER documented in this encounter Results * Vitamin B12 (09/07/2021 3:00 PM ASSISTANT STORE MANAGER) Vitamin B12 (External) 841 243 - 894 pg/mL NON-INTERFACED (ONBASE SCANS) Blood 09/07/2021 3:00 PM ASSISTANT STORE MANAGER Narrative [facility] - 10/04/2021 8:44 AM ASSISTANT STORE MANAGER Verified by Olga Lidia Beard on 10/04/2021. Provider Outside LAB - BLOOD ORDERABLES Edited R [employer] [facility] PFT NON-INTERFACED (ONBASE SCANS) * Erythrocyte sedimentation rate auto (09/07/2021 3:00 PM ASSISTANT STORE MANAGER) Pathologist [facility] ESR (External) 9 0 - 15 MM/HR NON-INTERFACED (ONBASE SCANS) Blood 09/07/2021 3:00 PM ASSISTANT STORE MANAGER Narrative [facility] - 10/04/2021 8:44 AM ASSISTANT STORE MANAGER Verified by Olga Lidia Beard on 10/04/2021. Provider Outside LAB - BLOOD ORDERABLES Edited R [employer] BREEZE PFT NON-INTERFACED (ONBASE SCANS) * (ABNORMAL) CBC with Platelets & Differential (09/07/2021 3:00 PM ASSISTANT STORE MANAGER) Pathologist [facility] WBC Count (External) 8.6 4.5 - 11.0 [...] D (ONBASE SCANS) Blood 09/07/2021 3:00 PM ASSISTANT STORE MANAGER Narrative [facility] - 10/04/2021 8:44 AM ASSISTANT STORE MANAGER Verified by Olga Lidia Beard on 10/03/2021. us Provider Outside LAB - BLOOD ORDERABLES Edited R esult - Final [facility] NON-INTERFACED (ONBASE SCANS) * Hepatic function panel (09/07/2021 3:00 PM ASSISTANT STORE MANAGER) Protein Total (External) 6.6 6.0 - 8.3 g/dL NON-INTERFACED (ONBASE SCANS) Bilirubin Total (External) 1.3 0.1 - 1.5 mg/dl NON-INTERFACED (ONBASE SCANS) Alk Phosphatase (External) 56 40 - 150 U/L NON-INTERFACED (ONBASE SCANS) Blood 09/07/2021 3:00 PM ASSISTANT STORE MANAGER Narrative [facility] - 10/04/2021 8:44 AM ASSISTANT STORE MANAGER Verified by Olga Lidia Beard on 10/03/2021. Provider Outside LAB - BLOOD ORDERABLES Edited [employer] [facility] PFT NON-INTERFACED (ONBASE SCANS) * Renal panel (09/07/2021 3:00 PM ASSISTANT STORE MANAGER) Urea Nitrogen (External) 21 7 - 30 [...] NON-INTERFACED (ONBASE SCANS) Blood 09/07/2021 3:00 PM ASSISTANT STORE MANAGER Narrative [facility] - 10/04/2021 8:44 AM ASSISTANT STORE MANAGER Verified by Kati Beard J10/03/2021. us Provider Outside LAB - BLOOD ORDERABLES Edited R [employer] [facility] PFT NON-INTERFACED (ONBASE SCANS) documented in this encounter Visit Diagnoses Not on filedocumented in this encounter Care Teams Business Support Liaison Relationship Specialty Start Date End Date Senthil Mckeon MD [address] [place] [phone] PCP - General 12/03/18 09/10/21 Ronnie Myers MD [address] [place], [place] [phone] PCP - General Family Medicine 09/11/21 Zen Rousseau MD [address] [place] [phone] Family Practice 07/31/12 Ta Trimble MD [address] [place], [place] [address] Assigned Heart and Vascular Provider 05/27/20 10/07/21 Mali Dowd APRN BEHAVIORAL HEALTH CASE MANAGER [address] [place], [place] [address] Assigned Heart and Vascular Provider 10/08/21 04/05/23 Perry Marie DPM [address] [facility] [address] [place] [address] Assigned Musculoskeletal Provider 06/29/23 documented as of this encounter
--- OUTSIDE RECORDS SUMMARY | 2024-06-05 12:46 | XMS_ITS | Encounter Summary ---
Author Organization [facility] Address [address] [place] [address]. [place] [address] Care Team Providers Care Jboss Architect Name Role Phone Elizabeth Rousseau MD Unavailable [phone] Elizabeth Rousseau MD Primary Care Provider Mckenzie Mayorga MD Primary Care Provider Luis Alberto Hernandez MD Primary Care Provider Gloria vailable Mckenzie Mayorga MD Primary Care Provider [phone] Senthil Mckeon MD Primary Care Provider + Ta Trimble MD Unavailable Ronnie Myers MD Primary Care Provider Mali Dowd APRN KETTLEMAN Unavailable [phone] Perry Marie DPM Unavailable [phone] Encounter Details Date Type Department Care Team (Late st Contact Info) Description 07/31/2012 Office Visit-[facility] [place] [address] [facility] [address] [place] [address] Craig Godfrey MD [address] [facility] [address] [place] [address] Social History Tobacco Use Types Packs/Day Years Used Date Smoking Tobacco: Never Assessed Sex and Gender Information Value Date Recorded Sex Assigned at Not on file Legal Sex Male 3: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 DATE: 07/31/2012 DONALDO BAUTISTA DATE OF : 1940 AGE: [age] years old Referring Physician: ELIZABETH ROUSSEAU Referring Clinic: [facility] CURRENT DIAGNOSES 1. - Shortness of Breath, [...] minutes prior to Niaspan. 5. Nitrocellulose Aerosol, [place], 1 p.o. PRN as Directed 6. 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; Residence - lives with and lives in [place] year round; Hours Worked - 30 hours [...] on filedocumented in this encounter Care Teams Jboss Architect Relationship Specialty Start Date End Date Elizabeth Rousseau MD [address] [place] [address] PCP - General Family Practice 08/01/12 08/09/15 Mckenzie Mayorga MD [address] [address] PCP - General 08/10/15 10/09/15 Luis Alberto Hernandez MD [address] [address] PCP - General Family Practice 10/10/15 07/25/16 Mckenzie Mayorga MD [address] [address] PCP - General 07/26/16 12/02/18 Senthil Mckeon MD [address] [address] PCP - General 12/03/18 09/10/21 Ronnie Myers MD 6 [place], [place] [address] PCP - General Family Medicine 09/11/21 Elizabeth Rousseau MD [address] [place] [phone] Family Practice 07/31/12 Ta Trimble MD 6 [place], [place] [address] Assigned Heart and Vascular Provider 05/27/20 10/07/21 Mali Dowd APRN KETTLEMAN [address] [place], [place] [address] Assigned Heart and Vascular Provider 10/08/21 04/05/23 Perry Marie DPM [address] [facility] [address] [place] [address] Assigned Musculoskeletal Provider 06/29/23 documented as of this encounter
--- OUTSIDE RECORDS SUMMARY | 2024-06-05 12:46 | XMS_ITS | Encounter Summary ---
Author Organization [facility] Address [address] [place] [address]. [place] [address] Care Team Providers Care Drafter Detail Name Role Phone Elizabeth Rousseau MD Unavailable [phone] Elizabeth Rousseau MD Primary Care Provider [phone] Mckenzie Mayorga MD Primary Care Provider [phone] Luis Alberto Hernandez MD Primary Care Provider Gloria vailable Mckenzie Mayorga MD Primary Care Provider [phone] Senthil Mckeon MD Primary Care Provider + Ta Trimble MD Unavailable [phone] Ronnie Myers MD Primary Care Provider [phone] Mali Dowd APRN SQL SERVER DBA Unavailable [phone] Perry Marie DPM Unavailable [phone] Encounter Details Date Type Department Care Team (Late st Contact Info) Description 08/20/2011 Office Visit-[facility] [address] [place] [address] Abhijit Castañeda MD Social History Tobacco Use Types Packs/Day Years Used Date Smoking Tobacco: Never Assessed Sex and Gender Information Value Date Recorded Sex Assigned at Not on file Legal Sex Male 3:20 AM QUALITY ENGINEER Gender Identity Not on file Sexual Orientation Not on file documented as of this encounter Progress Notes * Abhijit Castañeda MD - 08/27/2011 1:18 PM CST Progress Note Created by: Abhijit Castañeda M.D. DATE: 08/20/2011 DONALDO BAUTISTA DATE OF : 1940 AGE: [age] years old Referring Physician: ELIZABETH ROUSSEAU Referring Clinic: [facility] CURRENT DIAGNOSES 1. - Shortness of Breath, 786.05 2. - Chest Pain-unspecified, 786.50 3. - Hyperlipidemia, 272.4 4. Obesity-(<LT>100'), 278.00 5. - Hypertension, 401.1 6. NM-S/P Inferior, 412 7. CAD, 414.00 ALLERGIES Penicillin, [...] minutes prior to Niaspan. 6. Nitrocellulose Aerosol, [place], 1 p.o. PRN as Directed 7. Pravachol 80 mg Tablet, 1 p.o. qHS 8. Protonix 40 mg Tablet, Delayed Release (E.C.), 1 p.o. daily CHIEF COMPLAINTS yearly follow up HISTORY OF PRESENT ILLNESS I had the pleasure of seeing your patient, Donaldo Bautista, at 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 Perhaps you have a washer operator that works through your office that would [...] on filedocumented in this encounter Care Teams Drafter Detail Relationship Specialty Start Date End Date Elizabeth Rousseau MD [address] [place] [address] PCP - General Family Practice 08/01/12 08/09/15 Mckenzie Mayorga MD [facility] [address] [place] [address] PCP - General 08/10/15 10/09/15 Luis Alberto Hernandez MD [facility] [address], [place] [address] PCP - General Family Practice 10/10/15 07/25/16 Mckenzie Mayorga MD [place] [address] [address] [place] [address] PCP - General 07/26/16 12/02/18 Senthil Mckeon MD [place] [id number], [place] [address] PCP - General 12/03/18 09/10/21 Ronnie Myers MD 6 [place] [address] PCP - General Family Medicine 09/11/21 Elizabeth Rousseau MD [address] [place] [phone] Family Practice 07/31/12 Ta Trimble MD [address] [place] [address] Assigned Heart and Vascular Provider 05/27/20 10/07/21 Mali Dowd APRN SQL SERVER DBA [address] [place] [address] Assigned Heart and Vascular Provider 10/08/21 04/05/23 Perry Marie DPM [address] [facility] [address] [place] [address] Assigned Musculoskeletal Provider 06/29/23 documented as of this encounter
--- OUTSIDE RECORDS SUMMARY | 2024-06-05 12:46 | XMS_ITS | Encounter Summary ---
Author Organization [facility] Address [address] [place] [address]. [place] [address] Care Team Providers Care Sales And Service Representative Name Role Phone Zen Rousseau MD Unavailable Senthil Mckeon MD Primary Care Provider + Ta Trimble MD Unavailable Ronnie Myers MD Primary Care Provider [phone] Mali Dowd APRN GRANT COORDINATOR Unavailable [phone] Perry Marie DPM Unavailable [phone] Encounter Details Date Type Department Care Team (Late st Contact Info) Description 03/29/2021 MyC Medical Advice [facility] Centralized Scheduling [facility] [place] [address] Janell Watson Social History Tobacco Use Types Packs/Day Years Used Date Smoking Tobacco: Former Smokeless Tobacco: Never Comments:quit about 30 years ago Alcohol Use Standard Drinks/Week Comments Yes 0 (1 standard drink = 0.6 oz pur e alcohol) rare Sex and Gender Information Value Date Recorded Sex Assigned at Not on file Legal Sex Male 3:20 AM DERMATOPATHOLOGIST Gender Identity Not on file Sexual Orientation Not on file documented as of this encounter Plan of Treatment Not on file documented as of this encounter Visit Diagnoses Not on filedocumented in this encounter Care Teams Sales And Service Representative Relationship Specialty Start Date End Date Senthil Mckeon MD [address] [place] [address] PCP - General 12/03/18 09/10/21 Ronnie Myers MD 6 [place] [address] PCP - General Family Medicine 09/11/21 Zen Rousseau MD [address] [place] [phone] Family Practice 07/31/12 Ta Trimble MD 6 [place] [address] Assigned Heart and Vascular Provider 05/27/20 10/07/21 Mali Dowd APRN GRANT COORDINATOR [address] [place], [place] [address] Assigned Heart and Vascular Provider 10/08/21 04/05/23 Perry Marie DPM [address] [facility] [address] [place] [address] Assigned Musculoskeletal Provider 06/29/23 documented as of this encounter
--- OUTSIDE RECORDS SUMMARY | 2024-06-05 12:46 | XMS_ITS | Encounter Summary ---
Author Organization [facility] Address [address] [place] [address]. [place] [address] Care Team Providers Care Hemmer Lockstitch Name Role Phone Zen Rousseau MD Unavailable [phone] Zen Rousseau MD Primary Care Provider [phone] Mckenzie Mayorga MD Primary Care Provider [phone] Luis Alberto Hernandez MD Primary Care Provider Gloria vailable Mckenzie Mayorga MD Primary Care Provider [phone] Senthil Mckeon MD Primary Care Provider + Ta Trimble MD Unavailable [phone] Ronnie Myers MD Primary Care Provider [phone] Mali Dowd APRN MANAGER NEW PRODUCT Unavailable [phone] Perry Marie DPM Unavailable [phone] Encounter Details Date Type Department Care Team (Late st Contact Info) Description 03/03/2002 Office Visit-[facility] [address] [place] [address] Unknown, DoctorMD Social History Tobacco Use Types Packs/Day Years Used Date Smoking Tobacco: Never Assessed Sex and Gender Information Value Date Recorded Sex Assigned at Not on file Legal Sex Male 3:20 AM CORPORATE QUALITY MANAGER Gender Identity Not on file Sexual [...] 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, and the rest of the timehe plays [...] on filedocumented in this encounter Care Teams Hemmer Lockstitch Relationship Specialty Start Date End Date Zen Rousseau MD [address] [place] [address] PCP - General Family Practice 08/01/12 08/09/15 Mckenzie Mayorga MD [address] [address] PCP - General 08/10/15 10/09/15 Luis Alberto Hernandez MD [address] [address] PCP - General Family Practice 10/10/15 07/25/16 Mckenzie Mayorga MD [address] [address] PCP - General 07/26/16 12/02/18 Senthil Mckeon MD [address] [address] PCP - General 12/03/18 09/10/21 Ronnie Myers MD [address] [place] [address] PCP - General Family Medicine 09/11/21 Zen Rousseau MD [address] [place] [phone] Family Practice 07/31/12 Ta Trimble MD [address] [place] [address] Assigned Heart and Vascular Provider 05/27/20 10/07/21 Mali Dowd APRN MANAGER NEW PRODUCT [address] [place] [address] Assigned Heart and Vascular Provider 10/08/21 04/05/23 Perry Marie DPM [address] [facility] [address] [place] [address] Assigned Musculoskeletal Provider 06/29/23 documented as of this encounter
--- OUTSIDE RECORDS SUMMARY | 2024-06-05 12:46 | XMS_ITS | Encounter Summary ---
Author Organization [facility] Address [address] [place] [address]. [place] [address] Care Team Providers Care District Director Name Role Phone Elizabeth Rousseau MD Unavailable [phone] Elizabeth Rousseau MD Primary Care Provider Mckenzie Mayorga MD Primary Care Provider Luis Alberto Hernandez MD Primary Care Provider Gloria vailable Mckenzie Mayorga MD Primary Care Provider [phone] Senthil Mckeon MD Primary Care Provider + Ta Trimble MD Unavailable Ronnie Myers MD Primary Care Provider Mali Dowd APRN RANGE RIDER Unavailable [phone] Perry Marie DPM Unavailable [phone] Encounter Details Date Type Department Care Team (Late st Contact Info) Description 10/16/2013 Office Visit-[facility] [place] [address] [facility] [address] [place] [address] Craig Godfrey MD [address] [facility] [address] [place] [address] Social History Tobacco Use Types Packs/Day Years Used Date Smoking Tobacco: Never Assessed Sex and Gender Information Value Date Recorded Sex Assigned at Not on file Legal Sex Male 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 DATE: 10/16/2013 DONALDO BAUTISTA DATE OF : 1940 AGE: [age] years old Referring Physician: ELIZABETH ROUSSEAU Referring Clinic: [facility] CURRENT DIAGNOSES 1. - Shortness of Breath, 786.05 2. - Chest Pain-unspecified, 786.50 3. - Hyperlipidemia, 272.4 4. Obesity-(<LT>100'), 278.00 5. - Hypertension, 401.1 6. PR-S/P Inferior, 412 7. CAD, 414.00 ALLERGIES Penicillin, [...] #0 (Zero) Dosage Decreased, Nitrocellulose Aerosol and [place] 1 p.o. PRN as Directed #0 Substitution [...] on filedocumented in this encounter Care Teams District Director Relationship Specialty Start Date End Date Elizabeth Rousseau MD [address] [place] [address] PCP - General Family Practice 08/01/12 08/09/15 Mckenzie Mayorga MD [address] [address] PCP - General 08/10/15 10/09/15 Luis Alberto Hernandez MD [address] [address] PCP - General Family Practice 10/10/15 07/25/16 Mckenzie Mayorga MD [address] [address] PCP - General 07/26/16 12/02/18 Senthil Mckeon MD [address] [address] PCP - General 12/03/18 09/10/21 Ronnie Myers MD [address] [place] [address] PCP - General Family Medicine 09/11/21 Elizabeth Rousseau MD [address] [place] [address] Family Practice 07/31/12 Ta Trimble MD [address] [place] [address] Assigned Heart and Vascular Provider 05/27/20 10/07/21 Mali Dowd APRN RANGE RIDER [address] [place] [address] Assigned Heart and Vascular Provider 10/08/21 04/05/23 Perry Marie DPM [address] [facility] [address] [place], [place] [address] Assigned Musculoskeletal Provider 06/29/23 documented as of this encounter
== END 2024-06-05 12:42 | disposition home or self-care (01) ==
PROVIDERS: PCP Family Medicine; Visit Provider Family Medicine
DX: N40.1 Benign prostatic hyperplasia with lower urinary tract symptoms (principal); R35.1 Nocturia; N18.30 Chronic kidney disease, stage 3 unspecified; E11.40 Type 2 diabetes mellitus with diabetic neuropathy, unspecified; R41.3 Other amnesia; Z12.5 Encounter for screening for malignant neoplasm of prostate
CPT/HCPCS: 82607; 84443; G0103

== ENCOUNTER 2024-06-15 08:45 | Outpatient (CLI) | payer MEDICARE, SELFPAY ==
--- OUTSIDE RECORDS SUMMARY | 2024-06-18 06:21 | XMS_ITS | Encounter Summary ---
Author Organization [facility] Address [address] [place] [address]. [place] [address] Care Team Providers Care Workday Financials Consultant Name Role Phone Elizabeth Rousseau MD Unavailable [phone] Elizabeth Rousseau MD Primary Care Provider [phone] Mckenzie Mayorga MD Primary Care Provider [phone] Luis Alberto Hernandez MD Primary Care Provider Gloria vailable Mckenzie Mayorga MD Primary Care Provider [phone] Senthil Mckeon MD Primary Care Provider + Ta Trimble MD Unavailable [phone] Ronnie Myers MD Primary Care Provider [phone] Mali Dowd APRN TOOL GRINDER OPERATOR Unavailable [phone] Perry Marie DPM Unavailable [phone] Encounter Details Date Type Department Care Team (Late st Contact Info) Description 08/20/2011 Office Visit-[facility] [address] [place] [address] Abhijit Castañeda MD Social History Tobacco Use Types Packs/Day Years Used Date Smoking Tobacco: Never Assessed Sex and Gender Information Value Date Recorded Sex Assigned at Not on file Legal Sex Male 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 DATE: 08/20/2011 DONALDO BAUTISTA DATE OF : 1940 AGE: [age] years old Referring Physician: ELIZABETH ROUSSEAU Referring Clinic: [facility] CURRENT DIAGNOSES 1. - Shortness of Breath, 786.05 2. - Chest Pain-unspecified, 786.50 3. - Hyperlipidemia, 272.4 4. Obesity-(<LT>100'), 278.00 5. - Hypertension, 401.1 6. 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 CAD, 414.00 ALLERGIES Penicillin, [...] minutes prior to Niaspan. 6. Nitrocellulose Aerosol, [place], 1 p.o. PRN as Directed 7. Pravachol 80 mg Tablet, 1 p.o. qHS 8. Protonix 40 mg Tablet, Delayed Release (E.C.), 1 p.o. 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 that [...] on filedocumented in this encounter Care Teams Workday Financials Consultant Relationship Specialty Start Date End Date Elizabeth Rousseau MD [address] [place] [address] PCP - General Family Practice 08/01/12 08/09/15 Mckenzie Mayorga MD [facility] [address] [place] [address] PCP - General 08/10/15 10/09/15 Luis Alberto Hernandez MD [place] [address] [address], [place] [address] PCP - General Family Practice 10/10/15 07/25/16 Mckenzie Mayorga MD [place] [address] [address], [place] [address] PCP - General 07/26/16 12/02/18 Senthil Mckeon MD [place] [address] [address], [place] [address] PCP - General 12/03/18 09/10/21 Ronnie Myers MD [address] [address] PCP - General Family Medicine 09/11/21 Elizabeth Rousseau MD [address] [place] [phone] Family Practice 07/31/12 Ta Trimble MD 6 [place], [place] [address] Assigned Heart and Vascular Provider 05/27/20 10/07/21 Mali Dowd, JERMAINE TOOL GRINDER OPERATOR [address] [place], [place] [address] Assigned Heart and Vascular Provider 10/08/21 04/05/23 Perry Marie DPM [address] [facility] [address] [place] [address] Assigned Musculoskeletal Provider 06/29/23 documented as of this encounter
--- OUTSIDE RECORDS SUMMARY | 2024-06-18 06:21 | XMS_ITS | Encounter Summary ---
Author Organization [facility] Address [address] [place] [address]. [place] [address] Care Team Providers Care Enforcement Manager Name Role Phone Elizabeth Rousseau MD Unavailable [phone] Elizabeth Rousseau MD Primary Care Provider [phone] Mckenzie Mayorga MD Primary Care Provider [phone] Luis Alberto Hernandez MD Primary Care Provider Gloria vailable Mckenzie Mayorga MD Primary Care Provider [phone] Senthil Mckeon MD Primary Care Provider + Ta Trimble MD Unavailable [phone] Ronnie Myers MD Primary Care Provider [phone] Mali Dowd APRN HULL BUILDER Unavailable [phone] Perry Marie DPM Unavailable [phone] Encounter Details Date Type Department Care Team (Late st Contact Info) Description 08/13/2013 Office Visit-[facility] [place] [address] [facility] [address] [place] [address] Craig Godfrey MD [address] [facility] [address] [place] [address] Social History Tobacco Use Types Packs/Day Years Used Date Smoking Tobacco: Never Assessed Sex and Gender Information Value Date Recorded Sex Assigned at Not on file Legal Sex Male 3:[address]NAGER Gender Identity Not on file Sexual Orientation Not on file documented as of this encounter Progress Notes * Craig Godfrey MD - 08/18/2013 2:07 PM CST Progress Note Created by: Craig Godfrey M.D. DATE: 08/13/2013 DONALDO BAUTISTA DATE OF : 1940 AGE: [age] years old Referring Physician: ELIZABETH ROUSSEAU Referring Clinic: [facility] CURRENT DIAGNOSES 1. - Shortness of [...] minutes prior to Niaspan. 5. Nitrocellulose Aerosol, [place], 1 p.o. PRN as Directed 6. Pravachol [...] infarction. His angiography and percutaneous revascularization was performedby my former colleague, Dr. Luis Alberto Dunbar. [...] on filedocumented in this encounter Care Teams Enforcement Manager Relationship Specialty Start Date End Date Elizabeth Rousseau MD [address] [place] [phone] PCP - General Family Practice 08/01/12 08/09/15 Mckenzie Mayorga MD [address] [address] PCP - General 08/10/15 10/09/15 Luis Alberto Hernandez MD [address] [address] PCP - General Family Practice 10/10/15 07/25/16 Mckenzie Mayorag MD [address] [address] PCP - General 07/26/16 12/02/18 Senthil Mckeon MD [address] [address] PCP - General 12/03/18 09/10/21 Ronnie Myers MD [address] [address] PCP - General Family Medicine 09/11/21 Elizabeth Rousseau MD [address] [place] [address] Family Practice 07/31/12 Ta Trimble MD [address] [place], [place] [address] Assigned Heart and Vascular Provider 05/27/20 10/07/21 Mali Dowd APRN HULL BUILDER [address] [place], [place] [address] Assigned Heart and Vascular Provider 10/08/21 04/05/23 Perry Marie DPM [address] [facility] [address] [place] [address] Assigned Musculoskeletal Provider 06/29/23 documented as of this encounter
--- OUTSIDE RECORDS SUMMARY | 2024-06-18 06:21 | XMS_ITS | Encounter Summary ---
Author Organization [facility] Address [address] [place] [address]. [place] [address] Care Team Providers Care Health Equipment Servicer Name Role Phone Zen Rousseau MD Unavailable [phone] Senthil Mckeon MD Primary Care Provider + Ta Trimble MD Unavailable [phone] Ronnie Myers MD Primary Care Provider [phone] Mali Dowd APRN NATURAL RESOURCE OFFICER Unavailable [phone] Perry Marie DPM Unavailable [phone] Encounter Details Date Type Department Care Team (Late st Contact Info) Description 04/03/2021 External Order Results [facility] [address] [place] [address] Outside, Provider Social History Tobacco Use Types Packs/Day Years Used Date Smoking Tobacco: Former Smokeless Tobacco: Never Comments:quit about 30 years ago Alcohol Use Standard Drinks/Week Comments Yes 0 (1 standard drink = 0.6 oz pur e alcohol) rare Sex and Gender Information Value Date Recorded Sex Assigned at Not on file 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 Gender Identity Not on file Sexual Orientation [...] filedocumented in this encounter Care Teams Health Equipment Servicer Relationship Specialty Start Date End Date Senthil Mckeon MD [address] [place] [phone] PCP - General 12/03/18 09/10/21 Ronnie Myers MD [facility] [address] [place] [address] PCP - General Family Medicine 09/11/21 Zen Rousseau MD [address] [place] [phone] Family Practice 07/31/12 Ta Trimble MD [address] [place] [address] Assigned Heart and Vascular Provider 05/27/20 10/07/21 Mali Dowd APRN NATURAL RESOURCE OFFICER [address] [place] [address] Assigned Heart and Vascular Provider 10/08/21 04/05/23 Perry Marie DPM [address] [facility] [address] [place], [place] [address] Assigned Musculoskeletal Provider 06/29/23 documented as of this encounter
--- OUTSIDE RECORDS SUMMARY | 2024-06-18 06:21 | XMS_ITS | Encounter Summary ---
Author Organization [place] Address [address] [place] [address]. [place] [address] Care Team Providers Care Java Software Engineer Name Role Phone Zen Rousseau MD Unavailable [phone] Senthil Mckeon MD Primary Care Provider + Ta Trimble MD Unavailable [phone] Ronnie Myers MD Primary Care Provider [phone] Mali Dowd APRN MEATMAN Unavailable [phone] Perry Marie DPM Unavailable [phone] Encounter Details Date Type Department Care Team (Late st Contact Info) Description 03/29/2021 MyC Medical Advice [place] Centralized Scheduling [facility] [place] [address] Janell Watson Social History Tobacco Use Types Packs/Day Years Used Date Smoking Tobacco: Former Smokeless Tobacco: Never Comments:quit about 30 years ago Alcohol Use Standard Drinks/Week Comments Yes 0 (1 standard drink = 0.6 oz pur e alcohol) rare Sex and Gender Information Value Date Recorded Sex Assigned at Not on file 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 Gender Identity Not on file Sexual Orientation Not on file documented as of this encounter Plan of Treatment Not on file documented as of this encounter Visit Diagnoses Not on filedocumented in this encounter Care Teams Java Software Engineer Relationship Specialty Start Date End Date Senthil Mckeon MD [address] [place] [address] PCP - General 12/03/18 09/10/21 Ronnie Myers MD [facility] [address] [place] [address] PCP - General Family Medicine 09/11/21 Zen Rousseau MD [address] [facility] [place] [phone] Family Practice 07/31/12 Ta Trimble MD [address] [place] [address] Assigned Heart and Vascular Provider 05/27/20 10/07/21 Mali Dowd, CHIEF DEPUTY CORONER MEATMAN [address] [place], [place] [address] Assigned Heart and Vascular Provider 10/08/21 04/05/23 Perry Marie DPM [address] [facility] [address] [place] [address] Assigned Musculoskeletal Provider 06/29/23 documented as of this encounter
--- OUTSIDE RECORDS SUMMARY | 2024-06-18 06:21 | XMS_ITS | Encounter Summary ---
Author Organization [place] Address [address] [place] [address]. [place] [address] Care Team Providers Care Take Out Waiter Name Role Phone Zen Rousseau MD Unavailable [phone] Senthil Mckeon MD Primary Care Provider + Ta Trimble MD Unavailable [phone] Ronnie Myers MD Primary Care Provider [phone] Mali Dowd APRN PRODUCT MARKETING MANAGER Unavailable [phone] Perry Marie DPM Unavailable [phone] Encounter Details Date Type Department Care Team (Late st Contact Info) Description 09/07/2021 External Order Results [facility] [address] [place] [address] Outside, Provider Social History Tobacco Use Types Packs/Day Years Used Date Smoking Tobacco: Former Smokeless Tobacco: Never Comments:quit about 30 years ago Alcohol Use Standard Drinks/Week Comments Yes 0 (1 standard drink = 0.6 oz pur e alcohol) rare Sex and Gender Information Value Date Recorded Sex Assigned at Not on file Legal Sex Male 3:20 AM TONGUE TRIMMER Gender Identity Not on file Sexual Orientation Not on file documented as of this encounter Plan of Treatment Not on file documented as of this encounter Procedures Procedure Name Priority Date/Time Associated Diagnosis Comments CBC WITH PLATELETS & DIFFERENTIAL Routine 09/07/2021 3:00 PM TONGUE TRIMMER RENAL PANEL Routine 09/07/2021 3:00 PM TONGUE TRIMMER HEPATIC FUNCTION PANEL Routine 3:00 PM TONGUE TRIMMER ERYTHROCYTE SEDIMENTATION RATE AUTO Routine 09/07/2021 3:00 PM TONGUE TRIMMER VITAMIN B12 Routine 09/07/2021 3:00 PM TONGUE TRIMMER documented in this encounter Results * Vitamin B12 (09/07/2021 3:00 PM TONGUE TRIMMER) Vitamin B12 (External) 841 243 - 894 pg/mL NON-INTERFACED (ONBASE SCANS) Blood 09/07/2021 3:00 PM TONGUE TRIMMER Narrative [facility] - 10/04/2021 8:44 AM TONGUE TRIMMER Verified by Olga Lidia Beard on 10/04/2021. Provider Outside LAB - BLOOD ORDERABLES Edited R Xatori [facility] NON-INTERFACED (ONBASE SCANS) * Erythrocyte sedimentation rate auto (09/07/2021 3:00 PM TONGUE TRIMMER) Pathologist [facility] ESR (External) 9 0 - 15 MM/HR NON-INTERFACED (ONBASE SCANS) Blood 09/07/2021 3:00 PM TONGUE TRIMMER Narrative [facility] - 10/04/2021 8:44 AM TONGUE TRIMMER Verified by Olga Lidia Beard on 10/04/2021. Provider Outside LAB - BLOOD ORDERABLES Edited R Leatt - [email or web address] [facility] NON-INTERFACED (ONBASE SCANS) * (ABNORMAL) CBC with Platelets & Differential (09/07/2021 3:00 PM TONGUE TRIMMER) Pathologist [facility] WBC Count (External) 8.6 4.5 - 11.0 [...] D (ONBASE SCANS) Blood 09/07/2021 3:00 PM TONGUE TRIMMER Narrative [facility] - 10/04/2021 8:44 AM TONGUE TRIMMER Verified by Olga Lidia Beard on 10/03/2021. us Provider Outside LAB - BLOOD ORDERABLES Edited R esult - Final [facility] NON-INTERFACED (ONBASE SCANS) * Hepatic function panel (09/07/2021 3:00 PM TONGUE TRIMMER) Protein Total (External) 6.6 6.0 - 8.3 g/dL NON-INTERFACED (ONBASE SCANS) Bilirubin Total (External) 1.3 0.1 - 1.5 mg/dl NON-INTERFACED (ONBASE SCANS) Alk Phosphatase (External) 56 40 - 150 U/L NON-INTERFACED (ONBASE SCANS) Blood 09/07/2021 3:00 PM TONGUE TRIMMER Narrative [facility] - 10/04/2021 8:44 AM TONGUE TRIMMER Verified by Olga Lidia Beard on 10/03/2021. Provider Outside LAB - BLOOD ORDERABLES Edited [facility] NON-INTERFACED (ONBASE SCANS) * Renal panel (09/07/2021 3:00 PM TONGUE TRIMMER) Urea Nitrogen (External) 21 7 - 30 [...] NON-INTERFACED (ONBASE SCANS) Blood 09/07/2021 3:00 PM TONGUE TRIMMER Narrative [facility] - 10/04/2021 8:44 AM TONGUE TRIMMER Verified by Kati Beard J10/03/2021. us Provider Outside LAB - BLOOD ORDERABLES Edited R Leatt - [email or web address] [facility] NON-INTERFACED (ONBASE SCANS) documented in this encounter Visit Diagnoses Not on filedocumented in this encounter Care Teams Take Out Waiter Relationship Specialty Start Date End Date Senthil Mckeon MD [address] [place] [phone] PCP - General 12/03/18 09/10/21 Ronnie Myers MD [facility] [address] [place] [address] PCP - General Family Medicine 09/11/21 Zen Rousseau MD [address] [place] [phone] Family Practice 07/31/12 Ta Trimble MD [address] [place], [place] [address] Assigned Heart and Vascular Provider 05/27/20 10/07/21 Mali Dowd APRN PRODUCT MARKETING MANAGER [address] [place], [place] [address] Assigned Heart and Vascular Provider 10/08/21 04/05/23 Perry Marie DPM [address] [facility] [address] [place] [address] Assigned Musculoskeletal Provider 06/29/23 documented as of this encounter
--- OUTSIDE RECORDS SUMMARY | 2024-06-18 06:21 | XMS_ITS | Encounter Summary ---
Author Organization [place] Address [address] [place] [address]. [place] [address] Care Team Providers Care Forms Analyst Name Role Phone Zen Rousseau MD Unavailable [phone] Senthil Mckeon MD Primary Care Provider + Ta Trimble MD Unavailable [phone] Ronnie Myers MD Primary Care Provider [phone] Nile Mali E RETAIL CASHIER ASSOCIATE UNIVERSITY LIBRARIAN Unavailable [phone] Perry Marie DPM Unavailable [phone] Reason for Visit * Reason Onset Date Comments Appointment 09/08/2021 Calling to sched ule appt Encounter Details Date Type Department Care Team (Late st Contact Info) Description 09/08/[address] 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 Gender Identity Not on file Sexual [...] to: Other: Cardiology Travel Screening: Not Applicable NING ENGINEER documented in this encounter Plan of Treatment Not on file documented as of this encounter Visit Diagnoses Not on filedocumented in this encounter Care Teams Forms Analyst Relationship Specialty Start Date End Date Senthil Mckeon MD [address] [place] [phone] PCP - General 12/03/18 09/10/21 Ronnie Myers MD [facility] [address] [place] [address] PCP - General Family Medicine 09/11/21 Zen Rousseau MD [address] [place] [address] [place] [phone] Family Practice 07/31/12 Ta Trimble MD [address] [place], [place] [address] Assigned Heart and Vascular Provider 05/27/20 10/07/21 Mali Dowd, JERMAINE UNIVERSITY LIBRARIAN [address] [place] [address] Assigned Heart and Vascular Provider 10/08/21 04/05/23 Perry Marie DPM [address] [address] Assigned Musculoskeletal Provider 06/29/23 documented as of this encounter
--- OUTSIDE RECORDS SUMMARY | 2024-06-18 06:21 | XMS_ITS | Encounter Summary ---
Author Organization [place] Address [address] [place] [address]. [place] [address] Care Team Providers Care Tool And Die Assembler Name Role Phone Elizabeth Rousseau MD Unavailable [phone] Elizabeth Rousseau MD Primary Care Provider [phone] Mckenzie Mayorga MD Primary Care Provider [phone] Luis Alberto Hernandez MD Primary Care Provider Gloria vailable Mckenzie Mayorga MD Primary Care Provider [phone] Senthil Mckeon MD Primary Care Provider + Ta Trimble MD Unavailable [phone] Ronnie Myers MD Primary Care Provider [phone] Mali Dowd APRN METROLOGIST Unavailable [phone] Perry Marie DPM Unavailable [phone] Encounter Details Date Type Department Care Team (Late st Contact Info) Description 10/16/2013 Office Visit-[facility] [place] [address] [facility] [address] [place] [address] Craig Godfrey MD [address] [facility] [address] [place] [address] Social History Tobacco Use Types Packs/Day Years Used Date Smoking Tobacco: Never Assessed Sex and Gender Information Value Date Recorded Sex Assigned at Not on file 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 DATE: 10/16/2013 DONALDO BAUTISTA DATE OF : 1940 AGE: [age] years old Referring Physician: ELIZABETH ROUSSEAU Referring Clinic: [facility] CURRENT DIAGNOSES 1. - Shortness of Breath, [...] #0 (Zero) Dosage Decreased, Nitrocellulose Aerosol and [place] 1 p.o. PRN as Directed #0 Substitution [...] filedocumented in this encounter Care Teams Tool And Die Assembler Relationship Specialty Start Date End Date Elizabeth Rousseau MD [address] [place] [address] PCP - General Family Practice 08/01/12 08/09/15 Mckenzie Mayorga MD [address] [address] PCP - General 08/10/15 10/09/15 Luis Alberto Hernandez MD [address] [address] PCP - General Family Practice 10/10/15 07/25/16 Mckenzie Mayorga MD [address] [address] PCP - General 07/26/16 12/02/18 Senthil Mckeon MD [address] [address] PCP - General 12/03/18 09/10/21 Ronnie Myers MD [address] [address] PCP - General Family Medicine 09/11/21 Elizabeth Rousseau MD [address] [place] [address] Family Practice 07/31/12 Ta Trimble MD [address] [place] [address] Assigned Heart and Vascular Provider 05/27/20 10/07/21 Mali Dowd APRN METROLOGIST [address] [place], [place] [address] Assigned Heart and Vascular Provider 10/08/21 04/05/23 Perry Marie DPM [address] [facility] [address] [place] [address] Assigned Musculoskeletal Provider 06/29/23 documented as of this encounter
--- OUTSIDE RECORDS SUMMARY | 2024-06-18 06:21 | XMS_ITS | Encounter Summary ---
Author Organization [place] Address [address] [place] [address]. [place] [address] Care Team Providers Care Clinical Secretary Name Role Phone Zen Rousseau MD Unavailable [phone] Zen Rousseau MD Primary Care Provider [phone] Mckenzie Mayorga MD Primary Care Provider [phone] Luis Alberto Hernandez MD Primary Care Provider Gloria vailable Mckenzie Mayorga MD Primary Care Provider [phone] Senthil Mckeon MD Primary Care Provider + Ta Trimble MD Unavailable [phone] Ronnie Myers MD Primary Care Provider [phone] Mali Dowd APRN KENNEL WORKER Unavailable [phone] Perry Marie DPM Unavailable [phone] Encounter Details Date Type Department Care Team (Late st Contact Info) Description 08/07/2010 Office Visit-[facility] [address] [place] [address] Luis Alberto Dunbar MD [address] [place] [address] Social History Tobacco Use Types Packs/Day Years Used Date Smoking Tobacco: Never Assessed Sex and Gender Information Value Date Recorded Sex Assigned at Not on file Legal Sex Male 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 IA-S/P Inferior, 412 2. - Hypertension, 401.1 3. Obesity-(<LT>100'), 278.00 4. - Hyperlipidemia, 272.4 5. - Shortness of Breath, 786.05 6. - Chest Pain-unspecified, 786.50 7. CAD, 414.00 ALLERGIES Penicillin, Itching and rash MEDICATIONS (prior to changes made today) 1. Advair Diskus 500-50 mcg/Dose Disk with Device 2. Pravachol 80 mg Tablet, 1 p.o. qHS 3. Nitrocellulose Aerosol, Bone Gap, 1 p.o. PRN as Directed 4. Aspirin [...] appreciated seeing Mr. Bautista today in the [facility]. 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; Residence - lives with and lives in [place] year round; Hours Worked - 20 hours [...] on filedocumented in this encounter Care Teams Clinical Secretary Relationship Specialty Start Date End Date Zen Rousseau MD [address] [place] [address] PCP - General Family Practice 08/01/12 08/09/15 Mckenzie Mayorga MD [facility] [address] [place] [address] PCP - General 08/10/15 10/09/15 Luis Alberto Hernandez MD [place] [address], [place] [address] PCP - General Family Practice 10/10/15 07/25/16 Mckenzie Mayorga MD [address] [address] PCP - General 07/26/16 12/02/18 Senthil Mckeon MD [address], [place] [address] PCP - General 12/03/18 09/10/21 Ronnie Myers MD [address] [address] PCP - General Family Medicine 09/11/21 Zen Rousseau MD [address] [place] [address] Family Practice 07/31/12 Ta Trimble MD [address] [place] [address] Assigned Heart and Vascular Provider 05/27/20 10/07/21 Mali Dowd APRN KENNEL WORKER [address] [place] [address] Assigned Heart and Vascular Provider 10/08/21 04/05/23 Perry Marie DPM [address] [facility] [address] [place] [address] Assigned Musculoskeletal Provider 06/29/23 documented as of this encounter
--- OUTSIDE RECORDS SUMMARY | 2024-06-18 06:21 | XMS_ITS | Referral Summary ---
Author Organization [place] Address [facility] [place] [address] Care Team Providers Care Regulatory Affairs Consultant Name Role Phone Zen Rousseau MD Unavailable [phone] Ronnie Myers MD Primary Care Provider [phone] Perry Marie DPM Unavailable [phone] Allergies Active Allergy Reactions Criticality Noted Date [...] MG SL tabletIndications :Coronary artery disease involving jena coronary artery of jena heart without angina pectoris Place 1 tablet (0.4 mg) under the tongue every 5 minutes as needed for chest pain 25 tablet 3 6 Active rosuvastatin (CRESTOR) 40 MG tabletIndications :Mixed hyperlipidemia,Co ronary artery disease involving jena coronary artery of jena heart without angina pectoris Take 1 tablet (40 mg) by mouth daily 90 tablet 2 1 Active furosemide (LASIX) 20 MG tabletIndications :Essential hypertension,Katerine nary artery disease involving jena coronary artery of jena heart without angina pectoris Take 1 tablet [...] for follow up with Cardiology, please call [phone] to arrange 90 tablet 3 Active Active [...] on file Legal Sex Male 3:20 AM GENERAL OFFICE DISPATCHER Gender Identity Not on file Sexual Orientation Not on file Last Filed Vital Signs Vital Sign Reading Time Taken Comments Blood Pressure 150/73 06/10/2023 3:27 PM GENERAL OFFICE DISPATCHER Pulse 57 06/10/2023 3:27 PM GENERAL OFFICE DISPATCHER Temperature 36.7 ??C (98.1 ??F) 06/19/2022 10:[address] Respiratory Rate 18 06/19/2022 10:58 AM GENERAL OFFICE DISPATCHER Oxygen Saturation 100% 06/19/2022 10:58 AM GENERAL OFFICE DISPATCHER Inhaled Oxygen Concentration - - Weight 90.7 kg (200 lb) 06/10/2023 3:27 PM GENERAL OFFICE DISPATCHER Height 167.6 cm (5' 6) 06/10/2023 3:27 PM GENERAL OFFICE DISPATCHER Body Mass Index 32.28 06/10/2023 3:27 PM GENERAL OFFICE DISPATCHER Plan of Treatment Not on file Procedures Procedure Name Priority Date/Time Associated Diagnosis Comments COMPREHENSIVE METABOLIC PANEL STAT 06/19/2022 4:29 PM GENERAL OFFICE DISPATCHER LIPID PROFILE Routine 09/13/2020 from Last 3 Months or Most Recently Relevant to Health Maintenance Results * (ABNORMAL) Comprehensive metabolic panel (06/19/2022 4:29 PM GENERAL OFFICE DISPATCHER) Sodium 135(L) 136 - 145 mmol/L 06/19/2022 5:20 PM [facility] Potassium 4.1 3.4 - 5.3 mmol/L 06/19/2022 5:20 PM [facility] Chloride 96(L) 98 - 107 mmol/L 06/19/2022 5:20 PM [facility] Carbon Dioxide (CO2) 28 22 - 29 mmol/L 06/19/2022 5:20 PM [facility] Anion Gap 11 7 - 15 mmol/L 06/19/2022 5:20 PM [facility] Urea Nitrogen 9.0 8.0 - 23.0 mg/dL 06/19/2022 5:20 PM [facility] Creatinine 1.11 0.67 - 1.17 mg/dL 06/19/2022 5:20 PM [facility] Calcium 9.2 8.8 - 10.2 mg/dL 06/19/2022 5:20 PM [facility] Glucose 117(H) 70 - 99 mg/dL 06/19/2022 5:20 PM [facility] Alkaline Phosphatase 79 40 - 129 U/L 06/19/2022 5:20 PM [facility] AST 24 10 - 50 U/L 06/19/2022 5:20 PM [facility] Comment:Specimen is hemolyze d which can falsely elevate AST. Analysis of a non-hemolyzed specimen may result in a lower value. ALT 14 10 - 50 U/L 06/19/2022 5:20 PM GENERAL OFFICE DISPATCHER LABORATORY Protein Total 6.9 6.4 - 8.3 g/dL 06/19/2022 5:20 PM GENERAL OFFICE DISPATCHER [facility] Albumin 3.6 3.5 - 5.2 g/dL 06/19/2022 5:20 PM GENERAL OFFICE DISPATCHER LABORATORY Bilirubin Total 1.3(H) <=1.2 mg/dL 06/19/2022 5:20 PM GENERAL OFFICE DISPATCHER [facility] GFR Estimate 65 >60 mL/min/1.7 3m2 06/19/2022 5:20 PM GENERAL OFFICE DISPATCHER [facility] Comment:Effective July 062020 eGFRcr in adults is calculated using the 2020 CKD-EPI creatinine equation which includes age and gender (Susana et al., NEJ, DOI: 10.1056/LZOQsc6677575) Blood VENOUS LINE / Unknown Venipuncture / Unknown 06/19/2022 4:29 PM GENERAL OFFICE DISPATCHER 06/19/2022 4:37 PM GENERAL OFFICE DISPATCHER us Kris Lacey MD LAB - BLOOD ORDERABLES Final Result LABORATORY [facility] [address] Lab (1st floor, no room number) [place] [address], [place] [phone] * Lipid Profile (09/13/2020) Cholesterol 184 90 - 200 mg/dL [facility] Triglycerides 100 40 - 197 mg/dL [facility] HDL Cholesterol 79 >=40 mg/dL [facility] LDL Cholesterol Calculated 85 <=100 mg/dL [facility] Non HDL Cholesterol [facility] Blood specimen (specimen) 09/13/2020 us Patient Reported LAB - BLOOD ORDERABLES Final Re sult [facility] [address] [place] [address], [facility] [place] [phone] from Last 3 Months or Most Recently Relevant to Health Maintenance Insurance [facility] MEDICARE [facility] MEDICARE Advance Directives For more information, please contact: [phone] * Full Code (Latest Code Status on File) Date Activated Date Inactivated Comments 11/11/2016 10:06 AM 08/26/2019 7:12 AM * Full Code Date Activated Date Inactivated Comments 11/10/2016 8:03 PM 11/11/2016 10:06 AM Care Teams Regulatory Affairs Consultant Relationship Specialty Start Date End Date Ronnie Myers MD [facility] [address] [place] [address] PCP - General Family Medicine 09/11/21 Zen Rousseau MD [address] [place] [address] Family Practice 07/31/12 Perry Marie DPM [address] [address] Assigned Musculoskeletal Provider 06/29/23
--- OUTSIDE RECORDS SUMMARY | 2024-06-18 06:21 | XMS_ITS | Clinical Summary ---
Author Organization [employer] [facility] Address [place], [place] [address] Care Team Providers Care Bank Runner Name Role Phone Unknown, Doctor Primary Care [...] Comments Blood Pressure 118/56 10/10/2015 1:43 PM SPANISH LANGUAGE LECTURER Pulse 72 10/10/2015 1:43 PM SPANISH LANGUAGE LECTURER Temperature - - Respiratory Rate 18 11/12/2013 3:23 PM CDT Oxygen Saturation 96% 11/12/2013 3:23 PM CDT Inhaled Oxygen Concentration - - Weight 98.4 kg (217 lb) 10/10/2015 1:43 PM SPANISH LANGUAGE LECTURER Height 166.4 cm (5' 5.5) 10/10/2015 1:43 PM SPANISH LANGUAGE LECTURER Body Mass Index 35.56 10/10/2015 1:43 PM SPANISH LANGUAGE LECTURER Plan of Treatment Health Maintenance Due Date [...] 04/21/2015 Tetanus booster 05/07/2024 05/07/2014 Care Teams Bank Runner Relationship Specialty Start Date End Date Unknown, Doctor . PCP - General 04/25/18
--- OUTSIDE RECORDS SUMMARY | 2024-06-18 06:21 | XMS_ITS | Clinical Summary ---
Author Organization [facility] Address [address] [place] [address]. [place] [address] Care Team Providers Care Plastic Top Assembler Name Role Phone Zen Rousseau MD Unavailable [phone] Ronnie Myers MD Primary Care Provider [phone] Perry Marie DPM Unavailable [phone] Allergies Active Allergy Reactions Criticality Noted Date [...] MG SL tabletIndications :Coronary artery disease involving [place] coronary artery of [place] heart without angina pectoris Place 1 tablet (0.4 mg) under the tongue every 5 minutes as needed for chest pain 25 tablet 3 6 Active rosuvastatin (CRESTOR) 40 MG tabletIndications :Mixed hyperlipidemia,Co ronary artery disease involving [place] coronary artery of [place] heart without angina pectoris Take 1 tablet (40 mg) by mouth daily 90 tablet 2 1 Active furosemide (LASIX) 20 MG tabletIndications :Essential hypertension,Katerine nary artery disease involving [place] coronary artery of [place] heart without angina pectoris Take 1 tablet [...] for follow up with Cardiology, please call [phone] to arrange 90 tablet 3 Active Active [...] on file Legal Sex Male 3:20 AM POST EXCHANGE MANAGER Gender Identity Not on file Sexual Orientation Not on file Last Filed Vital Signs Vital Sign Reading Time Taken Comments Blood Pressure 150/73 06/10/2023 3:27 PM POST EXCHANGE MANAGER Pulse 57 06/10/2023 3:27 PM POST EXCHANGE MANAGER Temperature 36.7 ??C (98.1 ??F) 06/19/2022 10:[address] Respiratory Rate 18 06/19/2022 10:58 AM POST EXCHANGE MANAGER Oxygen Saturation 100% 06/19/2022 10:58 AM POST EXCHANGE MANAGER Inhaled Oxygen Concentration - - Weight 90.7 kg (200 lb) 06/10/2023 3:27 PM POST EXCHANGE MANAGER Height 167.6 cm (5' 6) 06/10/2023 3:27 PM POST EXCHANGE MANAGER Body Mass Index 32.28 06/10/2023 3:27 PM POST EXCHANGE MANAGER Plan of Treatment Health Maintenance Due Date [...] COMPREHENSIVE METABOLIC PANEL STAT 06/19/2022 4:29 PM POST EXCHANGE MANAGER LIPID PROFILE Routine 09/13/2020 from Last 3 Months or Most Recently Relevant to Health Maintenance Results * (ABNORMAL) Comprehensive metabolic panel (06/19/2022 4:29 PM POST EXCHANGE MANAGER) Sodium 135(L) 136 - 145 mmol/L 06/19/2022 5:20 PM POST EXCHANGE MANAGER [facility] Potassium 4.1 3.4 - 5.3 mmol/L 06/19/2022 5:20 PM POST EXCHANGE MANAGER [facility] Chloride 96(L) 98 - 107 mmol/L 06/19/2022 5:20 PM POST EXCHANGE MANAGER [facility] Carbon Dioxide (CO2) 28 22 - 29 mmol/L 06/19/2022 5:20 PM POST EXCHANGE MANAGER [facility] Anion Gap 11 7 - 15 mmol/L 06/19/2022 5:20 PM POST EXCHANGE MANAGER [facility] Urea Nitrogen 9.0 8.0 - 23.0 mg/dL 06/19/2022 5:20 PM POST EXCHANGE MANAGER [facility] Creatinine 1.11 0.67 - 1.17 mg/dL 06/19/2022 5:20 PM POST EXCHANGE MANAGER [facility] Calcium 9.2 8.8 - 10.2 mg/dL 06/19/2022 5:20 PM POST EXCHANGE MANAGER [facility]ATORY Glucose 117(H) 70 - 99 mg/dL 06/19/2022 5:20 PM POST EXCHANGE MANAGER [facility] Alkaline Phosphatase 79 40 - 129 U/L 06/19/2022 5:20 PM POST EXCHANGE MANAGER [facility] AST 24 10 - 50 U/L 06/19/2022 5:20 PM POST EXCHANGE MANAGER [facility] Comment:Specimen is hemolyze d which can falsely elevate AST. Analysis of a non-hemolyzed specimen may result in a lower value. ALT 14 10 - 50 U/L 06/19/2022 5:20 PM POST EXCHANGE MANAGER LAB[facility]ATORY Protein Total 6.9 6.4 - 8.3 g/dL 06/19/2022 5:20 PM POST EXCHANGE MANAGER [facility]ORY Albumin 3.6 3.5 - 5.2 g/dL 06/19/2022 5:20 PM POST EXCHANGE MANAGER LAB[facility]ATORY Bilirubin Total 1.3(H) <=1.2 mg/dL 06/19/2022 5:20 PM POST EXCHANGE MANAGER LAB[facility]ATORY GFR Estimate 65 >60 mL/min/1.7 3m2 06/19/2022 5:20 PM POST EXCHANGE MANAGER [facility] Comment:Effective July 062020 eGFRcr in adults is calculated using the 2020 CKD-EPI creatinine equation which includes age and gender (Susana et al., NEJM, DOI: 10.1056/EQQSar0176551) Blood VENOUS LINE / Unknown Venipuncture / Unknown 06/19/2022 4:29 PM POST EXCHANGE MANAGER 06/19/2022 4:37 PM POST EXCHANGE MANAGER us Kris Lacey MD LAB - BLOOD ORDERABLES Final Result LABORATORY [facility] [address] Lab (1st floor, no room number) [place] [address], [facility] [phone] * Lipid Profile (09/13/2020) Cholesterol 184 90 - 200 mg/dL [facility] Triglycerides 100 40 - 197 mg/dL [facility] HDL Cholesterol 79 >=40 mg/dL [facility] LDL Cholesterol Calculated 85 <=100 mg/dL [facility] Non HDL Cholesterol [facility] Blood specimen (specimen) 09/13/2020 Patient Reported LAB - BLOOD ORDERABLES Final Re sult [facility] [address] [place] [address], [facility] [phone] from Last 3 Months or Most Recently Relevant to Health Maintenance Insurance [facility] MEDICARE [facility] MEDICARE Advance Directives For more information, please contact: [phone] * Full Code (Latest Code Status on File) Date Activated Date Inactivated Comments 11/11/2016 10:06 AM 08/26/2019 7:12 AM * Full Code Date Activated Date Inactivated Comments 11/10/2016 8:03 PM 11/11/2016 10:06 AM Care Teams Plastic Top Assembler Relationship Specialty Start Date End Date Ronnie Myers MD [facility] [address] [place] [address] PCP - General Family Medicine 09/11/21 Zen Rousseau MD [address] [place] [address] Family Practice 07/31/12 Perry Marie DPM [id number] [address] Assigned Musculoskeletal Provider 06/29/23
--- OUTSIDE RECORDS SUMMARY | 2024-06-18 06:21 | XMS_ITS | Encounter Summary ---
Author Organization [facility] Address [address] [place] [address]. [place] [address] Care Team Providers Care Apartment Groundskeeper Name Role Phone Elizabeth Rousseau MD Unavailable [phone] Elizabeth Rousseau MD Primary Care Provider [phone] Mckenzie Mayorga MD Primary Care Provider [phone] Luis Alberto Hernandez MD Primary Care Provider Gloria vailable Mckenzie Mayorga MD Primary Care Provider [phone] Senthil Mckeon MD Primary Care Provider + Ta Trimble MD Unavailable [phone] Ronnie Myers MD Primary Care Provider [phone] Mali Dowd APRN MINISTER ASSISTANT Unavailable [phone] Perry Marie DPM Unavailable [phone] Encounter Details Date Type Department Care Team (Late st Contact Info) Description 07/31/2012 Office Visit-[facility] [place] [address] [facility] [address] [place] [address] Craig Godfrey MD [address] [facility] [address] [place] [address] Social History Tobacco Use Types Packs/Day Years Used Date Smoking Tobacco: Never Assessed Sex and Gender Information Value Date Recorded Sex Assigned at Not on file Legal Sex Male 3:20 AM CLOTH REELER Gender Identity Not on file Sexual Orientation Not on file documented as of this encounter Progress Notes * Craig Godfrey MD - 08/04/2012 3:17 PM CST Progress Note Created by: Craig Godfrey M.D. DATE: 07/31/2012 DONALDO BAUTISTA DATE OF : 1940 AGE: [age] years old Referring Physician: ELIZABETH ROUSSEAU Referring Clinic: [facility] CURRENT DIAGNOSES 1. - Shortness of Breath, 786.05 2. - Chest Pain-unspecified, 786.50 3. - Hyperlipidemia, 272.4 4. Obesity-(<LT>100'), 278.00 5. - Hypertension, 401.1 6. [place]-S/P Inferior, 412 7. CAD, 414.00 ALLERGIES Penicillin, [...] minutes prior to Nias[place]. 5. Nitrocellulose Aerosol, [place], 1 p.o. PRN as Directed 6. 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; Residence - lives with and lives in [place] year round; Hours Worked - 30 hours [...] on filedocumented in this encounter Care Teams Apartment Groundskeeper Relationship Specialty Start Date End Date Elizabeth Rousseau MD [address] [place] [phone] PCP - General Family Practice 08/01/12 08/09/15 Mckenzie Mayorga MD [address] [address] PCP - General 08/10/15 10/09/15 Luis Alberto Hernandez MD [address] [address] PCP - General Family Practice 10/10/15 07/25/16 Mckenzie Mayorga MD [address] [address] PCP - General 07/26/16 12/02/18 Senthil Mckeon MD [address] [address] PCP - General 12/03/18 09/10/21 Ronnie Myers MD [facility] [address] [place] [address] PCP - General Family Medicine 09/11/21 Elizabeth Rousseau MD [address] [place] [phone] Family Practice 07/31/12 Ta Trimble MD [address] [place], [place] [address] Assigned Heart and Vascular Provider 05/27/20 10/07/21 Mali Dowd APRN MINISTER ASSISTANT [address] [place], [place] [address] Assigned Heart and Vascular Provider 10/08/21 04/05/23 Perry Marie DPM [address] [facility] [address] [place], [place] [address] Assigned Musculoskeletal Provider 06/29/23 documented as of this encounter
--- OUTSIDE RECORDS SUMMARY | 2024-06-18 06:21 | XMS_ITS | Encounter Summary ---
Author Organization [facility] Address [address] [place] [address]. [place] [address] Care Team Providers Care Sweat Band Sewer Name Role Phone Zen Rousseau MD Unavailable [phone] Zen Rousseau MD Primary Care Provider [phone] Mckenzie Mayorga MD Primary Care Provider [phone] Luis Alberto Hernandez MD Primary Care Provider Gloria vailable Mckenzie Mayorga MD Primary Care Provider [phone] Senthil Mckeon MD Primary Care Provider + Ta Trimble MD Unavailable [phone] Ronnie Myers MD Primary Care Provider [phone] Mali Dowd APRN GRAIN LOADER Unavailable [phone] Perry Marie DPM Unavailable [phone] Encounter Details Date Type Department Care Team (Late st Contact Info) Description 03/03/2002 Office Visit-[facility] [address] [place] [address] Unknown, DoctorMD Social History Tobacco Use Types Packs/Day Years Used Date Smoking Tobacco: Never Assessed Sex and Gender Information Value Date Recorded Sex Assigned at Not on file Legal Sex Male 3:20 AM ATHLETIC EVENTS SCORER Gender Identity Not on file Sexual Orientation [...] 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, and the rest of the timehe plays [...] on filedocumented in this encounter Care Teams Sweat Band Sewer Relationship Specialty Start Date End Date Zen Rousseau MD [address] [place] [address] PCP - General Family Practice 08/01/12 08/09/15 Mckenzie Mayorga MD [address] [address] PCP - General 08/10/15 10/09/15 Luis Alberto Hernandez MD [address] [address] PCP - General Family Practice 10/10/15 07/25/16 Mckenzie Mayorga MD [address] [address] PCP - General 07/26/16 12/02/18 Senthil Mckeon MD [address] [address] PCP - General 12/03/18 09/10/21 Ronnie Myers MD [address] [address] PCP - General Family Medicine 09/11/21 Zen Rousseau MD [address] [place] [phone] Family Practice 07/31/12 Ta Trimble MD [address] [place] [address] Assigned Heart and Vascular Provider 05/27/20 10/07/21 Mali Dowd APRN GRAIN LOADER [address] [place] [address] Assigned Heart and Vascular Provider 10/08/21 04/05/23 Perry Marie DPM [address] [facility] [address] [place] [address] Assigned Musculoskeletal Provider 06/29/23 documented as of this encounter
== END 2024-06-15 08:46 | disposition home or self-care (01) ==
LOC: NFLDREF 06-18 06:19
PROVIDERS: PCP Family Medicine; Referring Provider Family Medicine; Visit Provider Internal Medicine Nephrology
DX: N18.30 Chronic kidney disease, stage 3 unspecified (principal); I10 Essential (primary) hypertension; E11.40 Type 2 diabetes mellitus with diabetic neuropathy, unspecified; R53.83 Other fatigue; D64.9 Anemia, unspecified; M79.606 Pain in leg, unspecified; R35.1 Nocturia; R41.3 Other amnesia
CPT/HCPCS: 80061; 80069; 82043; 82570; 82728; 83540; 83550; 83970; 84550

== ENCOUNTER 2024-08-12 09:34 | Outpatient (CLI) | payer MEDICARE, SELFPAY | END 2024-08-12 09:35 | disposition home or self-care (01) | PROVIDERS: PCP Family Medicine; Visit Provider Internal Medicine | DX: I35.0 Nonrheumatic aortic (valve) stenosis (principal); I35.1 Nonrheumatic aortic (valve) insufficiency | CPT/HCPCS: 93306 ==

== ENCOUNTER 2024-09-14 11:44 | Outpatient (CLI) | payer MEDICARE, SELFPAY | END 2024-09-14 11:45 | disposition home or self-care (01) | PROVIDERS: PCP Family Medicine; Visit Provider Family Medicine | DX: I10 Essential (primary) hypertension (principal) | CPT/HCPCS: 80048 ==

== ENCOUNTER 2025-04-26 14:02 | Outpatient (CLI) | payer MEDICARE, SELFPAY | END 2025-04-26 14:03 | disposition home or self-care (01) | LOC: NFLDREF 05-03 10:27 | PROVIDERS: PCP Family Medicine; Referring Provider Family Medicine; Visit Provider Family Medicine | DX: R32 Unspecified urinary incontinence (principal); E11.22 Type 2 diabetes mellitus with diabetic chronic kidney disease; I12.9 Hypertensive chronic kidney disease with stage 1 through stage 4 chronic kidney disease, or unspecified chronic kidney disease; N18.32 Chronic kidney disease, stage 3b; N40.1 Benign prostatic hyperplasia with lower urinary tract symptoms; D63.1 Anemia in chronic kidney disease; R35.1 Nocturia; E11.40 Type 2 diabetes mellitus with diabetic neuropathy, unspecified | CPT/HCPCS: 87086 ==